=== PATIENT | female | born 1990 | race Hispanic/Latino ===

== ENCOUNTER 2017-05-31 08:07 | Emergency (ER) | payer OTHER ==
[~2017-05-31] VITALS: Ht 154.9 cm; Wt 90.7 kg
[~2017-05-31 08:07] MED LIST: Z.0.LORAZEPAM1 MG PO; Z.0.PHENERGAN25 M1 PO; Z.0.PROTONIX40 MG PO
--- OUTSIDE RECORDS SUMMARY | 2017-05-31 08:10 | XMS REPORT | Clinical Summary ---
Author Author [facility] Organization [facility] Address Unknown Phone Unavailable Care Team Providers Care General Service Officer Name Role Phone PCP Unavailable Allergies No Known Allergies Current Medications Prescription Sig. Disp. Refills Start End Date Status Date dicyclomine (BENTYL) 20 Take 20 mg by mouth 3 09/24/19 Active mg tablet (three) times daily as 16 needed (For abdominal pain/spasm.) . clonazePAM (KLONOPIN) 1 2 mg 3 (three) times 11/13/19 Active MG tablet daily as needed for 16 Anxiety (Panic Attack.) . escitalopram oxalate Take 20 mg by mouth daily 10/23/19 Active (LEXAPRO) 10 MG tablet . 16 ibuprofen (ADVIL,MOTRIN) Take 400 mg by mouth Active 400 MG tablet every 6 (six) hours as needed for Pain. ondansetron (ZOFRAN-ODT) Take 4 mg by mouth every Active 4 MG disintegrating 6 (six) hours as needed tablet for Nausea. promethazine (PHENERGAN) Take 25 mg by mouth every Active 25 MG tablet 6 (six) hours as needed for Nausea. promethazine (PHENERGAN) Place 25 mg rectally Active 25 MG suppository every 6 (six) hours as needed for Nausea. omeprazole (PRILOSEC) 40 Take 40 mg by mouth 2 Active MG capsule (two) times daily. lamoTRIgine (LAMICTAL) 25 Take 25 mg by mouth every Active MG tablet evening. ondansetron (ZOFRAN-ODT) Take 1 tablet (4 mg 12 tablet 0 02/11/20 Active 4 MG disintegrating total) by mouth every 8 16 tablet (eight) hours as needed for Nausea for up to 12 doses. 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 Family History Medical History Relation Name Comments Cancer Mother Breast Relation Name Status Comments Mother Social History Tobacco Use Types Packs/Day Years Used Date Never Smoker Smokeless Tobacco: Never Used Alcohol Use Drinks/Week oz/Week Comments No Sex Assigned at Date Recorded Not on file Last Filed Vital Signs Not on file Plan of Treatment Not on file Implants Implanted Type Area Executive Secretary Social Welfare Device Expiration Model / Identifier Date Serial / Lot Dbx Kay,1cc Pretreat - Bone Right: MUSCULOSKELETAL 06/08/2016 [id number] / [id number] Wrist TRANSPLANT [id number] Implanted: Qty: 1 on 03/14/2015 by [id number] / Victoria Harry MD Metaphyseal Plate Fracture/F Right: SYNTHES TRUMA 223.412 / Implanted: Qty: 1 on 10/11/2014 by ixation Wrist / Jorge White MD [id number] Screw,Cortex Selftap 2.7x16mm - Fracture/F Right: SYNTHES TRUMA 202.816 / [id number] ixation Wrist / Implanted: Qty: 1 on 10/11/2014 by Jorge White MD Screw,Cortex Selftap 2.7x20mm - Fracture/F Right: SYNTHES TRUMA 202.820 / [id number] ixation Wrist / Implanted: Qty: 3 on 10/11/2014 by Jorge White MD Screw,Cortex Selftap 2.7x22mm - Fracture/F Right: SYNTHES TRUMA 202.822 / [id number] ixation Wrist / Implanted: Qty: 1 on 10/11/2014 by Jorge White MD Screw,Cortex Selftap 3.5x16mm - Fracture/F Right: SYNTHES TRUMA 204.816 / [id number] ixation Wrist / Implanted: Qty: 3 on 10/11/2014 by Jorge White MD Screw,Cortex Selftap 3.5x14mm - Fracture/F Right: SYNTHES TRUMA 204.814 / [id number] ixation Wrist / Implanted: Qty: 2 on 10/11/2014 by Jorge White MD Wire,Rc 1.25mm X 150mm - Fracture/F Right: SYNTHES TRUMA 292.12 / [id number] ixation Wrist / Implanted: Qty: 1 on 10/11/2014 by Jorge White MD K-Wire,.062 4 - [id number] Fracture/F Right: DEPUY SPINE Implanted: Qty: 2 on 12/13/2014 by ixation Wrist 0 / Victoria Harry MD / Tiss Live Dbx Putty 5cc [id number] - IMPLANTS Right: MUSCULOSKELETAL 05/2016 [id number] / [id number] Wrist TRANSPLANT FND [id number] Implanted: Qty: 1 on 04/16/2015 by [id number] / Deshawn Sánchez MD Tendon Achilles Calcan >=19.5 Tissue Right: MUSCULOSKELETAL 2018 [id number] / [id number] - [id number] Graft/Subs Wrist TRANSPLANT FND [id number] Implanted: Qty: 1 on 06/11/2015 by kayy [id number] / Victoria Harry MD Explanted: Lcp Wrist Fusion Plate Straight Right: Affle 02.110.152 Implanted: Qty: 1 on 04/16/2015 by Randall / Victoria Harry MD / 2.7mm Locking Screws, Self-Tapping, Right: Affle 202.218 / With T8 Stardrive Recess Wrist / Implanted: Qty: 1 on 04/16/2015 by Victoria Harry MD 3.5mm Locking Screws, Self-Tapping, Right: Synthes 212.104 / With T15 Stardrive Recess Wrist / Implanted: Qty: 1 on 04/16/2015 by Victoria Harry MD 3.5mm Locking Screws, Self-Tapping, Right: Synthes 212.105 / With T15 Stardrive Recess Wrist / Implanted: Qty: 1 on 04/16/2015 by Victoria Harry MD 3.5mm Locking Screws, Self-Tapping, Right: Synthes 212.106 / With T15 Stardrive Recess Wrist / Implanted: Qty: 1 on 04/16/2015 by Victoria Harry MD 2.7mm Locking Screws, Self-Tapping, Right: Synthes 202.214 / With T8 Stardrive Recess Wrist / Implanted: Qty: 1 on 04/16/2015 by Victoria Harry MD 2.7mm Locking Screws, Self-Tapping, Right: Affle 202.210 / With T8 Stardrive Recess Wrist / Implanted: Qty: 1 on 04/16/2015 by Victoria Harry MD 2.7mm Locking Screws, Self-Tapping, Right: Affle 202.212 / With T8 Stardrive Recess Wrist / Implanted: Qty: 1 on 04/16/2015 by Victoria Harry MD Micro Quickanchor Right: MITEK SURGICAL 06/28/2016 [id number] / Implanted: Qty: 2 on 06/11/2015 by [employer]oola / Victoria Harry MD [id number] Micro Quickanchor Right: MITEK SURGICAL 06/28/[id number] / Implanted: Qty: 2 on 06/11/2015 by Taboola / Victoria Harry MD [id number] Explanted Type Area Executive Secretary Social Welfare Device Expiration Model / Identifier Date Serial / Lot 2.7mm Locking Screws, Self-Tapping, Right: Affle 202.210 / With T8 Stardrive Recess Wrist / Explanted: Qty: 1 by Victoria Harry MD Results Not on fileafter 05/30/2016
--- OUTSIDE RECORDS SUMMARY | 2017-05-31 08:10 | XMS REPORT | Clinical Summary ---
Author Author [facility] Organization [facility] Address Unknown Phone Unavailable Care Team Providers Care Ob/Gyn Nurse Name Role Phone Oz Asencio DO PCP Allergies No Known Allergies Current Medications Prescription Sig. Disp. Refills Start End Date Status Date ALPRAZolam (XANAX) 1 MG Take 1 mg by mouth 2 Active tablet (two) times a day. omeprazole OTC (PriLOSEC Take 20 mg by mouth Active OTC) 20 MG EC tablet daily. ondansetron ODT Take 4 mg by mouth every Active (ZOFRAN-ODT) 4 MG 6 (six) hours as needed disintegrating tablet for nausea or vomiting. escitalopram (LEXAPRO) 20 Take 20 mg by mouth Active MG tablet daily. lamoTRIgine (LaMICtal) Take 100 mg by mouth Active 100 MG tablet daily. diazePAM (VALIUM) 5 MG Take 1 tablet (5 mg 20 tablet 1 06/22/1905/18 tablet total) by mouth every 12 17 17 (twelve) hours as needed for anxiety for up to 10 days. Active Problems Not on file Encounters Date Type Specialty Care Team Description 06/21/2016 Emergency Emergency Medicine [facility] Ray Anxiety (Primary Dx) after 05/30/2016 Social History Tobacco Use Types Packs/Day Years Used Date Never Smoker Alcohol Use Drinks/Week oz/Week Comments No Sex Assigned at Date Recorded Not on file Last Filed Vital Signs Vital Sign Reading Time Taken Blood Pressure 132/86 06/21/2016 7:51 AM CDT Pulse 84 06/21/2016 7:51 AM CDT Temperature 37.3 C (99.1 F) 06/21/2016 6:44 AM CDT Respiratory Rate 22 06/21/2016 7:51 AM CDT Oxygen Saturation 98% 06/21/2016 7:51 AM CDT Inhaled Oxygen - - Concentration Weight - - Height 154.9 cm (5' 1") 06/21/2016 6:44 AM CDT Body Mass Index - - Plan of Treatment Not on file Results * ECG 12 lead (06/21/2016 6:46 AM) Component Value Ref Range Ventricular rate 114 Atrial rate 114 MS interval 138 QRSD interval 96 QT interval 320 QTC interval 441 P axis 1 50 QRS axis 1 43 T wave axis 16 EKG impression Sinus tachycardia-Nonspecific T wave abnormality-Abnormal ECG-In automated comparison with ECG of 21-JUN-2016 06:46,-No significant change was found- Specimen Performing Laboratory [facility] [place] [address] [place] [address] after 05/30/2016 Insurance Payer Benefit Subscriber ID Type Phone Address Plan / Group [employer] [facility] xxxxxxxxx O [facility]
[2017-05-31] MEDS ORDERED: KETOROLAC TROMETHAMINE 30 MG/ML VIAL IV STA (08:19)
[2017-05-31] MEDS ORDERED: METOCLOPRAMIDE HCL 10 MG/2ML VIAL IV ONE (08:30)
[2017-05-31] MEDS ORDERED: DICYCLOMINE HCL 20 MG/2 ML VIAL IM ONE (08:30)
[2017-05-31 09:29] LABS: BASOPHILS % 0.3 % (0.0-1.0); EOSINOPHILS # (AUTO) 0.2 (0.0-0.4); EOSINOPHILS % 1.6 % (0.0-6.0); HEMATOCRIT 36.9 % (34.2-44.1); HEMOGLOBIN 12.1 g/dL (12.0-16.0); LYMPHOCYTES # (AUTO) 1.7 (1.0-3.2); LYMPHOCYTES % 18.3 % (18.0-39.1); MEAN CORPUSCULAR HEMOGLOBIN 29.3 pg (28-32); MEAN CORPUSCULAR HGB CONC 32.8 g/dL (31-35); MEAN CORPUSCULAR VOLUME 89.3 fL (81-99); MONOCYTES # (AUTO) 0.4 (0.2-0.8); MONOCYTES % 4.5 % (4.4-11.3); NEUTROPHILS # (AUTO) 6.8 (2.1-6.9); NEUTROPHILS % 75.1 % (38.7-80.0); PLATELET COUNT 242 x10e3/uL (140-360); RED BLOOD COUNT 4.13 x10e6/uL (3.6-5.1); RED CELL DISTRIBUTION WIDTH 17.5 % (11.7-14.4)
[2017-05-31 09:47] LABS: ALANINE AMINOTRANSFERASE 16 IU/L (0-55); ALBUMIN 4.1 g/dL (3.5-5.0); ALBUMIN/GLOBULIN RATIO 1.1 (0.8-2.0); ALKALINE PHOSPHATASE 101 IU/L (40-150); BLOOD UREA NITROGEN 11 mg/dL (7-26); BUN/CREATININE RATIO 15 (6-25); CALCIUM 9.8 mg/dL (8.4-10.2); CARBON DIOXIDE 22 mmol/L (22-29); CHLORIDE 108 mmol/L (98-107); CREATININE, SERUM 0.72 mg/dL (0.57-1.11); EST GLOMERULAR FILTRATION RATE > 60 ML/MIN (60-); GLUCOSE 102 mg/dL (74-118); SODIUM 142 mmol/L (136-145)
[2017-05-31] MEDS ORDERED: DIATRIZOATE MEGL/DIATRIZOA SOD 30 ML BTL PO ONE (09:56)
[2017-05-31] MEDS ORDERED: MORPHINE SULFATE 5 MG/ML VIAL IM ONE (10:00)
[2017-05-31] MEDS ORDERED: MORPHINE SULFATE 2 MG/ML SYR IM SCH (10:00)
--- NOTE | 2017-05-31 11:56 | Diagnostic Imaging Report ---
PROCEDURE: CT ABDOMEN AND PELVIS WITHOUT CONTRAST TECHNIQUE: The abdomen and pelvis were scanned utilizing a multidetector helical scanner from the diaphragm to the lesser trochanter without administration of contrast medium. Patient declined oral contrast. No IV contrast was administered per physician request. Coronal and sagittal multiplanar reformations were obtained. DLP: 675.02 COMPARISON: [facility], CT, CT ABDOMEN/PELVIS W, 10/01/2016, 2:50. INDICATIONS: Diffuse abdominal pain accompanied by nausea and vomiting. FINDINGS: ABSENCE OF INTRAVENOUS CONTRAST DECREASES SENSITIVITY FOR DETECTION OF FOCAL LESIONS AND VASCULAR PATHOLOGY. LOWER THORAX: Bilateral dependent atelectasis. Small hiatal hernia. HEPATOBILIARY: No focal hepatic lesions. No biliary ductal dilatation. Status post cholecystectomy. SPLEEN: No splenomegaly. PANCREAS: No focal masses or ductal dilatation. ADRENALS: No adrenal nodules. KIDNEYS/URETERS: No hydronephrosis, stones, or solid mass lesions. PELVIC ORGANS/BLADDER: Unremarkable. PERITONEUM / RETROPERITONEUM: No free air or fluid. LYMPH NODES: No lymphadenopathy. VESSELS: Unremarkable. GI TRACT: No distention or wall thickening. The appendix is unremarkable. Medication capsules within the cecum. BONES AND SOFT TISSUES: Unremarkable. IMPRESSION: 1. no acute abdominopelvic abnormality. 2. Small hiatal hernia. 3. Status post cholecystectomy. No significant biliary dilatation. 4. Status post hysterectomy. Alisha Man M.D. Dictated by: Alisha Man M.D. on 05/31/2017 at 11:57 Electronically approved by: Alisha Man M.D. on 05/31/2017 at 11:57
== END 2017-05-31 12:44 | disposition home or self-care (01) ==
LOC: ER 08:07
DX: R10.31 Right lower quadrant pain (principal); R11.2 Nausea with vomiting, unspecified; M54.5 Low back pain; G89.29 Other chronic pain; Z72.89 Other problems related to lifestyle
CPT/HCPCS: 36415; 74176; 80053; 85025; 86140; 99284; J0500; J1885; J2270; J2765

== ENCOUNTER 2017-06-09 15:16 | Emergency (ER) | payer OTHER ==
[~2017-06-09] VITALS: Ht 154.9 cm; Wt 88.0 kg
--- OUTSIDE RECORDS SUMMARY | 2017-06-09 15:19 | XMS REPORT | Continuity of Care Document ---
Author Author [facility] Organization [facility] Address [address] [place] [address] Phone Unavailable Care Team Providers Care Rn Diabetes Educator Name Role Phone NONSTAFF PCP Unavailable Insurance Providers Guarantor MarthaHolley núñez Address [address] [place] [address] Email NONE Payer [facility] Choice Policy Number [id number] Subscriber's Name Holley Thomas Relationship 18 Self / Same As Patient Group Number [id number] Group Name UNEMPLOYED Effective Date 16 Advance Directives Directive Response Recorded Date/Time Does the patient have an advance directive? No 04/15/11 9:10am If yes, is advance directive on file with [facility]? No 04/15/11 9:10am If not on file with [facility] will patient provide a copy? No 04/15/11 9:10am Do you have a Directive to Physician? No 05/31/17 8:49am Do you have a Medical Power of Manager Functional? No 05/31/17 8:49am Do you have an out of hospital Do Not Resuscitate Order? No 05/31/17 8:49am Do you have any special needs we should be aware of? No 05/31/17 8:49am Do you have a support person here with you today? No 05/31/17 8:49am Did patient receive Notice of Privacy Practices? Yes 05/31/17 8:49am Did patient receive patient rights and responsibilities? Yes 05/31/17 8:49am Problems No problem information available. Medications Current Home MedicationsUnable to obtain current home medications. Past Home Medications Medication Directions Ordered Status Lorazepam 1 Mg Tablet, 1 Mg Oral As Needed Discontinued Pantoprazole Sodium (Protonix) 40 Mg Tablet.dr, 40 Mg Oral Daily Discontinued Promethazine Hcl (Phenergan) 25 Mg Tablet, 25 Mg Oral As Needed Discontinued Social History No social history information available. Hospital Discharge Instructions No hospital discharge instruction information available. Plan of Care Discharge Date 05/31/17 12:44pm Disposition HOME, SELF-CARE Condition at Discharge Stable Instructions/Education Provided Abdominal Pain - Adult Chronic Pain Prescriptions See Medication Section Referrals Marita Barnett Functional Status No functional status information available. Allergies, Adverse Reactions, Alerts No known allergies. Immunizations No immunization information available. Vital Signs Acute Vital Signs Vital Response Date/Time Temperature (Fahrenheit) 98.2 degrees F (97.6 - 99.5) 10/01/2016 3:54am Pulse Pulse Rate (adult) 80 bpm (60 - 90) 10/01/2016 3:54am Respiratory Rate 18 bpm (12 - 24) 10/01/2016 3:54am Blood Pressure 140/86 mm Hg 10/01/2016 3:54am Height 5 ft 1 in 05/31/2017 8:19am Weight 200 lb 05/31/2017 8:19am Body Mass Index 37.8 kg/m^2 05/31/2017 8:19am Results Laboratory Results Test Name Result Units Flags Reference Collection Date/Time Result Date/ Time Comments Urine Color YELLOW YELLOW 10/01/2016 3:11am 10/01/2016 3:17am Urine Clarity SL CLOUDY CLEAR 10/01/2016 3:11am 10/01/2016 3:17am Urine Specific [place] 1.005 L 1.010-1.025 10/01/2016 3:11am 2016 3:17am Urine pH 7 5 - 7 10/01/2016 3:11am 10/01/2016 3:17am Urine Leukocyte Esterase NEGATIVE NEGATIVE 10/01/2016 3:11am 2016 3:17am Urine Nitrite NEGATIVE NEGATIVE 10/01/2016 3:11am 10/01/2016 3:17am Urine Protein TRACE H NEGATIVE 10/01/2016 3:11a10/01/2016 3:17am Urine Glucose (UA) NEGATIVE NEGATIVE 10/01/2016 3:11a10/01/2016 3: 17am Urine Ketones NEGATIVE NEGATIVE 10/01/2016 3:11a10/01/2016 3:17am Urine Opiates Screen NEGATIVE NEGATIVE 10/01/2016 3:11a10/01/2016 3 :22am Urine Barbiturates Screen NEGATIVE NEGATIVE 10/01/2016 3:11a2016 3:22am Urine Phencyclidine Screen NEGATIVE NEGATIVE 10/01/2016 3:11a2016 3:22am Urine Amphetamines Screen NEGATIVE NEGATIVE 10/01/2016 3:11a2016 3:22am Urine Benzodiazepines Screen POSITIVE H NEGATIVE 10/01/2016 3:11a04/2016 3:22am This test provides only a screen. Positive results should be repeated by a confirmatory test. Urine Cocaine Screen NEGATIVE NEGATIVE 10/01/2016 3:11a10/01/2016 3 :22am Urine Cannabinoids Screen POSITIVE H NEGATIVE 10/01/2016 3:2016 3:22am This test provides only a screen. Positive results should be repeated by a confirmatory test. Urine Urobilinogen 0.2 mg/dL 0.2 - 1 10/01/2016 3:11a10/01/2016 3: 17am Urine Bilirubin NEGATIVE NEGATIVE 10/01/2016 3:10/01/2016 3: 17am Urine Blood TRACE H NEGATIVE 10/01/2016 3:11a10/01/2016 3:17am Urine WBC 0-5 /HPF 0-5 10/01/2016 3:11a10/01/2016 3:28am Urine RBC 0-5 /HPF 0-5 10/01/2016 3:11a10/01/2016 3:28am Urine Bacteria FEW /HPF NONE 10/01/2016 3:11a10/01/2016 3:28am Urine Epithelial Cells MANY /LPF NONE 10/01/2016 3:11a10/01/2016 3: 28am Human Chorionic Gonadotropin, Qual NEGATIVE NEGATIVE 10/01/2016 2: 15am 10/01/2016 2:29am White Blood Count 9.12 x10e3/uL 4.8-10.8 05/31/2017 9:00am 05/31/2017 9 :31am Red Blood Count 4.13 x10e6/uL 3.6-5.1 05/31/2017 9:00am 05/31/2017 9: 31am Hemoglobin 12.1 g/dL 12.0-16.0 05/31/2017 9:00am 05/31/2017 9:31am Hematocrit 36.9 % 34.2-44.1 05/31/2017 9:00am 05/31/2017 9:31am Mean Corpuscular Volume 89.3 fL 81-99 05/31/2017 9:00am 05/31/2017 9: 31am Mean Corpuscular Hemoglobin 29.3 pg 28-32 05/31/2017 9:00am 05/31/2017 9:31am Mean Corpuscular Hemoglobin Concent 32.8 g/dL 31-35 05/31/2017 9:00am 05/31/2017 9:31am Red Cell Distribution Width 17.5 % H 11.7-14.4 05/31/2017 9:00am 2017 9:31am Platelet Count 242 x10e3/uL 140-360 05/31/2017 9:00am 05/31/2017 9: 31am Neutrophils (%) (Auto) 75.1 % 38.7-80.0 05/31/2017 9:00am 05/31/2017 9: 31am Lymphocytes (%) (Auto) 18.3 % 18.0-39.1 05/31/2017 9:00am 05/31/2017 9: 31am Monocytes (%) (Auto) 4.5 % 4.4-11.3 05/31/2017 9:00am 05/31/2017 9: 31am Eosinophils (%) (Auto) 1.6 % 0.0-6.0 05/31/2017 9:00am 05/31/2017 9: 31am Basophils (%) (Auto) 0.3 % 0.0-1.0 05/31/2017 9:00am 05/31/2017 9:31am IM GRANULOCYTES % 0.2 % 0.0-1.0 05/31/2017 9:00am 05/31/2017 9:31am Neutrophils # (Auto) 6.8 2.1-6.9 05/31/2017 9:00am 05/31/2017 9:31am Lymphocytes # (Auto) 1.7 1.0-3.2 05/31/2017 9:00am 05/31/2017 9:31am Monocytes # (Auto) 0.4 0.2-0.8 05/31/2017 9:00am 05/31/2017 9:31am Eosinophils # (Auto) 0.2 0.0-0.4 05/31/2017 9:00am 05/31/2017 9:31am Basophils # (Auto) 0.0 0.0-0.1 05/31/2017 9:00am 05/31/2017 9:31am Absolute Immature Granulocyte (auto 0.02 x10e3/uL 0-0.1 05/31/2017 9: 00am 05/31/2017 9:31am Sodium Level 142 mmol/L 136-145 05/31/2017 9:00am 05/31/2017 9:51am Potassium Level 4.0 mmol/L 3.5-5.1 05/31/2017 9:00am 05/31/2017 9:51am Chloride Level 108 mmol/L H 98-107 05/31/2017 9:00am 05/31/2017 9:51am Carbon Dioxide Level 22 mmol/L 22-29 05/31/2017 9:00am 05/31/2017 9: 51am Anion Gap 16.0 mmol/L 8-16 05/31/2017 9:00am 05/31/2017 9:51am Blood Urea Nitrogen 11 mg/dL 7-26 05/31/2017 9:00am 05/31/2017 9:51am Creatinine 0.72 mg/dL 0.57-1.11 05/31/2017 9:00am 05/31/2017 9:51am BUN/Creatinine Ratio 15 6-25 05/31/2017 9:00am 05/31/2017 9:51am Estimat Glomerular Filtration Rate > 60 ML/MIN 60- 05/31/2017 9:00am 9:51am Ranges were taken from the National Kidney Disease Education Program and the National Kidney Foundation literature. Reference ranges: 60 or greater: Normal 16-59 (for 3 consecutive months): Chronic kidney disease 15 or less: Kidney failure Glucose Level 102 mg/dL 74-118 05/31/2017 9:00am 05/31/2017 9:51am Calcium Level 9.8 mg/dL 8.4-10.2 05/31/2017 9:00am 05/31/2017 9:51am Total Bilirubin 0.5 mg/dL 0.2-1.2 05/31/2017 9:00am 05/31/2017 9:51am Aspartate Amino Transf (AST/SGOT) 16 IU/L 5-34 05/31/2017 9:00am 2017 9:51am Alanine Aminotransferase (ALT/SGPT) 16 IU/L 0-55 05/31/2017 9:00am 04/2017 9:51am Total Protein 7.7 g/dL 6.5-8.1 05/31/2017 9:00am 05/31/2017 9:51am Albumin 4.1 g/dL 3.5-5.0 05/31/2017 9:00am 05/31/2017 9:51am Globulin 3.6 g/dL H 2.3-3.5 05/31/2017 9:00am 05/31/2017 9:51am Albumin/Globulin Ratio 1.1 0.8-2.0 05/31/2017 9:00am 05/31/2017 9: 51am Alkaline Phosphatase 101 IU/L 40-150 05/31/2017 9:00am 05/31/2017 9: 51am Procedures Procedure Status Date Provider(s) Computed tomography of abdomen and pelvis with contrast Active 10/01/[address] of abdomen and pelvis without contrast Active 05/31/17 RG KWOK MD Encounters Encounter Location Arrival/Admit Date Discharge/Depart Date Attending Provider Departed Emergency Room [facility] 05/31/17 8:07am 12:44pm RG KWOK MD Departed Emergency Room [facility] 10/01/16 1:39am 4:27am STEW BRANDT MD
--- OUTSIDE RECORDS SUMMARY | 2017-06-09 15:19 | XMS REPORT ---
Author Author [facility] Address Unknown Phone Unavailable Care Team Providers Care Inspector Chief Name Role Phone RG KWOK Unavailable Unavailable Problems This patient has no known problems. Allergies, Adverse Reactions, Alerts This patient has no known allergies or adverse reactions. Medications This patient has no known medications. Results Test Description Test Time Test Comments Text Results Atomic Results Result Comments CT ABDOMEN/PELVIS WO [place] [address] Patient Name: HOLLEY GAYLE MR #: [id number] : 1990 Age/Sex: 26/F Req # : [id number] Adm Physician: Ordered by: RG KWOK MD Report #: [id number] Location: ER Room/Bed: Procedure: [id number] CT/CT ABDOMEN/PELVIS WO Exam Date: 05/31/17 Exam Time: 1103 REPORT STATUS: Signed PROCEDURE: CT ABDOMEN AND PELVIS WITHOUT CONTRAST TECHNIQUE: The abdomen and pelvis were scanned utilizing a multidetector helical scanner from the diaphragm to the lesser trochanter without administration of contrast medium. Patient declined oral contrast. No IV contrast was administered per physician request. Coronal and sagittal multiplanar reformations were obtained. DLP: 675.02 COMPARISON: [facility], CT, CT ABDOMEN/PELVIS W, 10/01/2016, 2: 50. INDICATIONS: Diffuse abdominal pain accompanied by nausea and vomiting. FINDINGS: ABSENCE OF INTRAVENOUS CONTRAST DECREASES SENSITIVITY FOR DETECTION OF FOCAL LESIONS AND VASCULAR PATHOLOGY. LOWER THORAX: Bilateral dependent atelectasis. Small hiatal hernia. HEPATOBILIARY: No focal hepatic lesions. No biliary ductal dilatation. Status post cholecystectomy. SPLEEN: No splenomegaly. PANCREAS: No focal masses or ductal dilatation. ADRENALS: No adrenal nodules. KIDNEYS/ URETERS: No hydronephrosis, stones, or solid mass lesions. PELVIC ORGANS/ BLADDER: Unremarkable. PERITONEUM / RETROPERITONEUM: No free air or fluid. LYMPH NODES: No lymphadenopathy. VESSELS: Unremarkable. GI TRACT: No distention or wall thickening. The appendix is unremarkable. Medication capsules within the cecum. BONES AND SOFT TISSUES: Unremarkable. IMPRESSION: 1. no acute abdominopelvic abnormality. 2. Small hiatal hernia. 3. Status post cholecystectomy. No significant biliary dilatation. 4. Status post hysterectomy. Alisha Peña M.D. Dictated by: Alisha Peña M.D. on 2017 at 11:57 Electronically approved by: Alisha Peña M.D. on 05/31/2017 at 11:57 Dictated By: REMY PEÑA MD, MD 1157 Transcribed By : SUYAPA on 05/31/17 1157 COPY TO: RG KWOK MD
--- OUTSIDE RECORDS SUMMARY | 2017-06-09 15:19 | XMS REPORT | Clinical Summary ---
Author Author [facility] Address Unknown Phone Unavailable Care Team Providers Care Communications Superintendent Name Role Phone Oz Asencio DO PCP [...] Emergency Medicine [facility] Ray Anxiety (Primary Dx) MD after 06/08/2016 Social History Tobacco Use Types Packs/Day Years [...] Range Ventricular rate 114 Atrial rate 114 LA interval 138 QRSD interval 96 QT interval 320 QTC interval 441 P axis 1 50 QRS axis 1 43 T wave axis 16 EKG impression Sinus tachycardia-Nonspecific T wave abnormality-Abnormal ECG-In automated comparison with ECG of 21-JUN-2016 06:46,-No significant change was found- Specimen Performing Laboratory [facility] [place] [address] [place] [address] after 06/08/2016 Insurance Payer Benefit Subscriber ID Type Phone Address Plan / Group [employer] COM [facility] xxxxxxxxx O [facility]
--- OUTSIDE RECORDS SUMMARY | 2017-06-09 15:19 | XMS REPORT | Clinical Summary ---
Author Author WILLY [facility] Organization [facility] Address Unknown Phone Unavailable Care Team Providers Care Script Writer Name Role Phone PCP Unavailable Allergies No [...] subsequent 2015 encounter Irritable bowel syndrome 04/16/2015 [facility] compl of int fix of bones of [...] Not on file Implants Implanted Type Area Garment Supervisor Device Expiration Model / Identifier Date Serial / Lot Dbx Kay,1cc Pretreat - Bone Right: MUSCULOSKELETAL 06/08/2016 [id number] / [id number] Wrist TRANSPLANT [id number] Implanted: Qty: 1 on 03/14/2015 by [id number] / Victoria Harry MD Metaphyseal Plate Fracture/F Right: SYNTHES TRUMA 223.412 / Implanted: Qty: 1 on 10/11/2014 by [employer]ation Wrist / Jorge White MD [id number] Screw,Cortex Selftap 2.7x16mm - Fracture/F Right: SYNTHES TRUMA 202.816 / [id number] ixation Wrist / Implanted: Qty: 1 on 10/11/2014 by Jorge White MD Screw,Cortex Selftap 2.7x20mm - Fracture/F Right: SYNTHES TRUMA 202.820 / [id number] ixation Wrist / Implanted: Qty: 3 on 10/11/2014 by Jorge White MD Screw,Cortex Selftap 2.7x22mm - Fracture/F Right: SYNTHES TRUMA 202.822 / [id number] ixation Wrist / Implanted: Qty: 1 on 10/11/2014 by Jorge White MD Screw,Cortex Selftap 3.5x16mm - Fracture/F Right: SYNTHES TRUMA 204.816 / [id number] ixation Wrist / Implanted: Qty: 3 on 10/11/2014 by Jorge White MD Screw,Cortex Selftap 3.5x14mm - Fracture/F Right: SYNTHES TRUMA 204.814 / [id number] [employer]ation Wrist / Implanted: Qty: 2 on 10/11/2014 by Jorge White MD Wire,Rc 1.25mm X 150mm - Fracture/F Right: SYNTHES TRUMA 292.12 / [id number] ixation Wrist / Implanted: Qty: 1 on 10/11/2014 by Jorge White MD K-Wire,.062 4 - [id number] Fracture/F Right: DEPUY SPINE Implanted: Qty: 2 on 12/13/2014 by [employer] Wrist 0 / Victoria Harry MD / Tiss Live Dbx Putty 5cc [id number] - IMPLANTS Right: MUSCULOSKELETAL 05/2016 [id number] / [id number] Wrist TRANSPLANT FND [id number] Implanted: Qty: 1 on 04/16/2015 by [id number] / Deshawn Sánchez MD Tendon Achilles Calcan >=19.5 Tissue Right: MUSCULOSKELETAL 2018 [id number] / [id number] - [id number] Graft/Subs Wrist TRANSPLANT FND [id number] Implanted: Qty: 1 on 06/11/2015 by kayy [email or web address] / Victoria Harry MD Explanted: Lcp Wrist Fusion Plate Straight Right: SP3H 02.110.152 Implanted: Qty: 1 on 04/16/2015 by Randall / Victoria Harry MD / 2.7mm Locking Screws, Self-Tapping, Right: SP3H 202.218 / With T8 Stardrive Recess Wrist [...] Harry MD 2.7mm Locking Screws, Self-Tapping, Right: SP3H 202.210 / With T8 Stardrive Recess Wrist / Implanted: Qty: 1 on 04/16/2015 by Victoria Harry MD 2.7mm Locking Screws, Self-Tapping, Right: SP3H 202.212 / With T8 Stardrive Recess Wrist / Implanted: Qty: 1 on 04/16/2015 by Victoria Harry MD Micro Quickanchor Right: [employer] 06/28/[id number] / Implanted: Qty: 2 on 06/11/2015 by [employer] / Victoria Harry MD [id number] Micro Quickanchor Right: [employer] 06/28/2016405154 / Implanted: Qty: 2 on 06/11/2015 by [employer] / Victoria Harry MD [id number] Explanted Type Area Garment Supervisor Device Expiration Model / Identifier Date Serial / Lot 2.7mm Locking Screws, Self-Tapping, Right: SP3H 202.210 / With T8 Stardrive Recess Wrist / Explanted: Qty: 1 by Victoria Harry MD Results Not on fileafter 06/08/2016
[2017-06-09] MEDS ORDERED: FAMOTIDINE 20 MG/2 ML VIAL IV STA (15:31)
[2017-06-09] MEDS ORDERED: KETOROLAC TROMETHAMINE 30 MG/ML VIAL IV STA (15:31)
[2017-06-09] MEDS ORDERED: SODIUM CHLORIDE 0.9% 1000ML 1,000 ML IV SCH (15:45)
[2017-06-09] MEDS ORDERED: METOCLOPRAMIDE HCL 10 MG/2ML VIAL IV ONE (15:45)
[2017-06-09] MEDS ORDERED: DICYCLOMINE HCL 20 MG/2 ML VIAL IM ONE (15:45)
--- NOTE | 2017-06-09 16:26 | Diagnostic Imaging Report ---
PROCEDURE:ABDOMEN ACUTE SERIES W/PA CXR COMPARISON:Chest and abdominal series 08/29/2015 INDICATIONS:rlq pain FINDINGS: CHEST: Lungs are well-inflated and clear. No pneumothorax or pleural effusions. Cardiomediastinal silhouette is within normal limits. BOWEL PATTERN: No abnormally distended air filled loops of large or small bowel. No air-fluid levels on upright view. SOFT TISSUES: Cholecystectomy clips project over the right upper quadrant. No free air under the diaphragm on upright view. Nonspecific rectangular 1.5 cm opacity projects over the right lower quadrant and may be external to the patient. A 0.9 cm round density projects over the pelvis and may represent calcified contents within stool. BONES: No acute bony abnormalities. CONCLUSION: 1. No acute thoracic abnormality. 2. No evidence of bowel obstruction. Dictated by: Perfecto Kingsley M.D. on 06/09/2017 at 16:27 Electronically approved by: Perfecto Kingsley M.D. on 06/09/2017 at 16:27
[2017-06-09 16:54] LABS: BILIRUBIN,URINE NEGATIVE (NEGATIVE); CLARITY,URINE SL CLOUDY (CLEAR); COLOR,URINE YELLOW (YELLOW); KETONES,URINE NEGATIVE (NEGATIVE); LEUKOCYTE ESTERASE ,URINE 1+ (NEGATIVE); NITRITE,URINE NEGATIVE (NEGATIVE); URINE UROBILINOGEN 0.2 mg/dL (0.2 - 1)
[2017-06-09 16:55] LABS: AMPHETAMINES SCREEN,URINE NEGATIVE (NEGATIVE); BENZODIAZEPINES SCREEN,URINE POSITIVE (NEGATIVE); PHENCYCLIDINE SCREEN,URINE NEGATIVE (NEGATIVE); PROTEIN,URINE DIPSTICK TRACE (NEGATIVE)
[2017-06-09 17:04] LABS: BACTERIA,URINE MODERATE /HPF; EPITHELIAL CELLS,URINE RARE /LPF
[2017-06-09] MEDS ORDERED: CEFTRIAXONE SOD 1 GM VIAL IV ONE (18:00)
[2017-06-09 18:01] LABS: BASOPHILS % 0.2 % (0.0-1.0); EOSINOPHILS # (AUTO) 0.2 (0.0-0.4); EOSINOPHILS % 1.9 % (0.0-6.0); HEMATOCRIT 37.6 % (34.2-44.1); HEMOGLOBIN 12.6 g/dL (12.0-16.0); LYMPHOCYTES % 24.3 % (18.0-39.1); MEAN CORPUSCULAR HEMOGLOBIN 29.5 pg (28-32); MEAN CORPUSCULAR HGB CONC 33.5 g/dL (31-35); MEAN CORPUSCULAR VOLUME 88.1 fL (81-99); MONOCYTES # (AUTO) 0.4 (0.2-0.8); MONOCYTES % 5.2 % (4.4-11.3); NEUTROPHILS # (AUTO) 5.5 (2.1-6.9); PLATELET COUNT 392 x10e3/uL (140-360); RED BLOOD COUNT 4.27 x10e6/uL (3.6-5.1); RED CELL DISTRIBUTION WIDTH 17.4 % (11.7-14.4)
[2017-06-09 18:19] LABS: ALANINE AMINOTRANSFERASE 29 IU/L (0-55); ALBUMIN 4.1 g/dL (3.5-5.0); ALKALINE PHOSPHATASE 117 IU/L (40-150); ANION GAP 13.4 mmol/L (8-16); BLOOD UREA NITROGEN 6 mg/dL (7-26); BUN/CREATININE RATIO 8 (6-25); CARBON DIOXIDE 25 mmol/L (22-29); CHLORIDE 103 mmol/L (98-107); CREATININE, SERUM 0.74 mg/dL (0.57-1.11); EST GLOMERULAR FILTRATION RATE > 60 ML/MIN (60-); GLUCOSE 89 mg/dL (74-118); LIPASE 8 U/L (8-78); POTASSIUM 3.4 mmol/L (3.5-5.1); SODIUM 138 mmol/L (136-145)
[2017-06-09 18:43] LABS: ERYTHROCYTE SEDIMENTATION RATE 19 mm/hr (0-20)
== END 2017-06-09 18:10 | disposition left against medical advice (07) ==
LOC: ER 15:16
DX: N30.90 Cystitis, unspecified without hematuria (principal); G89.29 Other chronic pain; R11.10 Vomiting, unspecified; Z76.5 Malingerer [conscious simulation]; Z72.89 Other problems related to lifestyle; R10.11 Right upper quadrant pain
CPT/HCPCS: 36415; 74022; 80053; 80307; 81001; 83690; 85025; 85651; 99284; J0500; J1885; J2765; J7030

== ENCOUNTER 2018-09-13 04:38 | Emergency (ER) | payer BC ==
[~2018-09-13] VITALS: Ht 154.9 cm; Wt 88.0 kg
--- OUTSIDE RECORDS SUMMARY | 2018-09-13 04:46 | XMS REPORT | Clinical Summary ---
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 CT Abdomen Pelvis W Contrast (04/12/2018 10:42 AM TECHNICAL SERVICE REPRESENTATIVE) Only the most recent of 4 results within the time period is included. Specimen Narrative Performed At EXAMINATION:CT ABDOMEN PELVIS W CONTRAST [facility] CLINICAL HISTORY:abdominal pain COMPARISON:03/17/2018 TECHNIQUE: Multiple axial CT images of the Abdomen and pelvis were obtainedWith IV contrast . Sagittal and coronal reconstructions were done. CT imaging was performed with iterative reconstruction technique and/or automated exposure control to reduce radiation dose. FINDINGS: HEPATOBILIARY:No focal hepatic lesions. No biliary ductal dilation. GALLBLADDER: Absent. SPLEEN:No splenomegaly. PANCREAS:No focal masses or ductal dilation. ADRENALS:No adrenal nodules. KIDNEYS:No hydronephrosis, stones or solid masses. PERITONEUM/RETROPERITONEUM:No free air or fluid. No lymphadenopathy. ABDOMINAL AORTA/IVC: No aneurysm or dissection. GI TRACT:Visualized portions of the bowel demonstrate no distention or wall thickening. There are no signs of appendicitis. No signs of diverticulitis. PELVIC ORGANS/BLADDER:Urinary bladder is fluid-filled. Uterus and ovaries are absent. BONES AND SOFT TISSUES:No acute abnormality. VISUALIZED LOWER CHEST: No acute abnormality. IMPRESSION: No acute abnormality. [facility]-[id number] Procedure Note Interface, Radiology Results Incoming - 04/12/2018 11:25 AM TECHNICAL SERVICE REPRESENTATIVE EXAMINATION: CT ABDOMEN PELVIS W CONTRAST CLINICAL HISTORY: abdominal pain COMPARISON: 03/17/2018 TECHNIQUE: Multiple axial CT images of the Abdomen and pelvis were obtained With IV contrast . Sagittal and coronal reconstructions were done. CT imaging was performed with iterative reconstruction technique and/or automated exposure control to reduce radiation dose. FINDINGS: HEPATOBILIARY: No focal hepatic lesions. No biliary ductal dilation. GALLBLADDER: Absent. SPLEEN: No splenomegaly. PANCREAS: No focal masses or ductal dilation. ADRENALS: No adrenal nodules. KIDNEYS: No hydronephrosis, stones or solid masses. PERITONEUM/RETROPERITONEUM: No free air or fluid. No lymphadenopathy. ABDOMINAL AORTA/IVC: No aneurysm or dissection. GI TRACT: Visualized portions of the bowel demonstrate no distention or wall thickening. There are no signs of appendicitis. No signs of diverticulitis. PELVIC ORGANS/BLADDER: Urinary bladder is fluid-filled. Uterus and ovaries are absent. BONES AND SOFT TISSUES: No acute abnormality. VISUALIZED LOWER CHEST: No acute abnormality. IMPRESSION: No acute abnormality. [facility]-[id number] Performing Organization Address City/State/Zipcode Phone Number [facility] [address] [place] [address] * Lactic acid level (03/16/2018 10:32 PM TECHNICAL SERVICE REPRESENTATIVE) Only the most recent of 6 results within the time period is included. [facility] Lactic acid 1.8 0.5 - 2.2 mmol/L [facility] Specimen Plasma specimen Performing Organization Address City/State/Zipcode Phone Number [facility] [address] [place] [id number] PATHOLOGY AND GENOMIC MEDICINE [address] * Estimated GFR (10/01/2017 4:00 AM CDT) Only the most recent of 6 results within the time period is included. [facility] GFR Non Af Amer >90 mL/min/1.73 m2 [facility] DEPARTMENT OF PATHOLOGY AND GENOMIC MEDICINE GFR Af Amer >90 mL/min/1.73 m2 [facility] DEPARTMENT Comment: OF PATHOLOGY Chronic kidney disease: <60 AND GENOMIC mL/min/1.73m2 MEDICINE Kidney failure: <15 mL/min/1.73m2 The estimated GFR is calculated from the IDMS-traceable Modification of Diet in Renal Disease Equation. The accuracy of the calculation is poor when the creatinine is normal. Calculated values >90 mL/min/1.73m2 are not reported. This equation has not been validated in children (<18 years), women, the elderly (>70 years), or ethnic groups other than Caucasians and Americans. Specimen Plasma specimen Performing Organization Address City/State/Zipcode Phone Number [address] [address] PATHOLOGY AND GENOMIC MEDICINE * Basic metabolic panel (10/01/2017 4:00 AM CDT) Only the most recent of 2 results within the time period is included. [facility] Sodium 140 135 - 148 mEq/L [facility] DEPARTMENT OF PATHOLOGY AND GENOMIC MEDICINE Potassium 3.8 3.5 - 5.0 mEq/L [facility] DEPARTMENT OF PATHOLOGY AND GENOMIC MEDICINE Chloride 102 98 - 112 mEq/L [facility] DEPARTMENT OF PATHOLOGY AND GENOMIC MEDICINE CO2 27 24 - 31 mEq/L [facility] DEPARTMENT OF PATHOLOGY AND GENOMIC MEDICINE Anion gap 11@ANIO 7 - 15 mEq/L [facility] DEPARTMENT OF PATHOLOGY AND GENOMIC MEDICINE BUN 7 6 - 20 mg/dL [facility] DEPARTMENT OF PATHOLOGY AND GENOMIC MEDICINE Creatinine 0.6 0.5 - 0.9 mg/dL [facility] DEPARTMENT OF PATHOLOGY AND GENOMIC MEDICINE Glucose 74 65 - 99 mg/dL [facility] DEPARTMENT OF PATHOLOGY AND GENOMIC MEDICINE Calcium 8.8 8.3 - 10.2 mg/dL [facility] DEPARTMENT OF PATHOLOGY AND GENOMIC MEDICINE Specimen Plasma specimen Performing Organization Address [facility]ode Phone Number [facility] [place] [address] PATHOLOGY AND GENOMIC MEDICINE * C-reactive protein (09/30/2017 5:51 AM CDT) CRP <0.30 0.00 - 0.50 mg/dL [facility] DEPARTMENT OF PATHOLOGY AND GENOMIC MEDICINE Specimen Plasma specimen Performing Organization Address City/[facility] [place] [address] PATHOLOGY AND GENOMIC MEDICINE * Phosphorus level (09/30/2017 5:51 AM CDT) Only the most recent of 2 results within the time period is included. Phosphorus 3.2 2.4 - 4.5 mg/dL [facility] DEPARTMENT OF PATHOLOGY AND GENOMIC MEDICINE Specimen Plasma specimen Performing Organization Address [facility] [place] [address] PATH[facility] * Magnesium level (09/30/2017 5:51 AM CDT) Only the most recent of 2 results within the time period is included. Magnesium 1.8 1.6 - 2.6 mg/dL [facility] DEPARTMENT OF PATHOLOGY AND GENOMIC MEDICINE Specimen Plasma specimen Performing Organization Address [facility] [place] [address] PATHOLOGY AND [facility] MEDICINE * Urine drugs of abuse screen (09/29/2017 7:05 PM CDT) Only the most recent of 2 results within the time period is included. Amphetamine Negative [facility] DEPARTMENT screen, urine OF PATHOLOGY AND GENOMIC MEDICINE Barbiturate Negative [facility] DEPARTMENT screen, urine OF PATHOLOGY AND GENOMIC MEDICINE Benzodiazepine Negative [facility] DEPARTMENT screen, urine OF PATHOLOGY AND GENOMIC MEDICINE Cannabinoid Positive (A) [facility] DEPARTMENT screen, urine OF PATHOLOGY AND GENOMIC MEDICINE Cocaine screen, Negative [facility] DEPARTMENT urine OF PATHOLOGY AND GENOMIC MEDICINE Methadone Negative [facility] DEPARTMENT metabolite OF PATHOLOGY (EDDP), urine AND GENOMIC MEDICINE Opiates screen, Positive (A) [facility] DEPARTMENT urine OF PATHOLOGY AND GENOMIC MEDICINE Oxycodone Negative [facility] DEPARTMENT screen, urine OF PATHOLOGY AND GENOMIC MEDICINE Phencyclidine Negative [facility] DEPARTMENT screen, urine OF PATHOLOGY AND GENOMIC MEDICINE Tricyclic Negative [facility] DEPARTMENT screen, urine Comment: OF PATHOLOGY Drug screen minimum AND GENOMIC concentration of detectability MEDICINE Amphetamines 1000 ng/mL Barbiturates 200 ng/mL Benzodiazepines 300 ng/mL Cocaine 300 ng/mL Methadone 300 ng/mL Opiates 300 ng/mL Oxycodone 300 ng/mL Phencyclidine 25 ng/mL Cannabinoids 50 ng/mL Tricyclics 1000 ng/mL Negative test results indicates presumptive evidence of lack of clinically significant drug concentration in this urine specimen. Positive test results are presumptive evidence of clinically significant drug concentration in this urine specimen. Testing performed for medical purposes only. Specimen Urine Performing Organization Address City/[facility]ode Phone Number [facility] [place] [address] PATHOLOGY AND GENOMIC MEDICINE * AST (SGOT) (09/15/2017 1:40 PM CDT) AST 20 10 - 35 U/L [facility] DEPARTMENT OF PATHOLOGY AND GENOMIC MEDICINE Specimen Plasma specimen Performing Organization Address City/[facility]ercode Phone Number [facility] [place] [address] PATHOLOGY AND GENOMIC MEDICINE * Potassium level (09/15/2017 1:40 PM CDT) Potassium 3.9 3.5 - 5.0 mEq/L [facility] DEPARTMENT OF PATHOLOGY AND GENOMIC MEDICINE Specimen Plasma specimen Performing Organization Address City/[facility]ercofl Phone Number [facility] [place] [address] PATHOLOGY AND GENOMIC MEDICINE * Smear review (09/15/2017 11:35 AM CDT) Platelet slide Óscar adequate [facility] DEPARTMENT review OF PATHOLOGY AND GENOMIC MEDICINE Anisocytosis Moderate [facility] DEPARTMENT OF PATHOLOGY AND GENOMIC MEDICINE Specimen Narrative Performed At K/AST RECOLLECT CALLED TO CYNTHIA ADAMS/DANA 09/15/201713:28 //LS2 [facility] DEPARTMENT OF PATHOLOGY AND GENOMIC MEDICINE Performing Organization Address [facility] Centercode Phone Number [facility] [place] [address] PATHOLOGY AND GENOMIC MEDICINE after 09/12/2017 Insurance Type Payer Benefit Subscriber ID Effective Phone Address Plan / Dates Group PPO BCBS BCBS xxxxxxxxxxxx [id number] CHOICE resent PPO/[employer] PPO Advance Directives Patient has advance care planning documents, and code status on file. For more i nformation, please contact: Kody Gilman [address] [place] [address] Date Inactivated Comments Code Status Date Activated 10/01/2017 4:07 PM Full Code 09/29/2017 3:54 PM Code Status decision reached by: Patient
--- OUTSIDE RECORDS SUMMARY | 2018-09-13 04:50 | XMS REPORT | Clinical Summary ---
Author Author [facility] Organization [facility] Address Unknown Phone Unavailable Care Team Providers Care Aml Analyst Name Role Phone Pcp, No PCP Unavailable Allergies No Known Allergies Medications End Date Status Medication Sig Dispensed Refills Start Date Active dicyclomine (BENTYL) 20 Take 20 mg by 0 09/23/201 mg tablet mouth 3 6 (three) times daily as needed (For abdominal pain/spasm.) . Active ondansetron (ZOFRAN-ODT) Take 4 mg by 0 4 MG disintegrating mouth every 6 tablet (six) hours as needed for Nausea. Active promethazine (PHENERGAN) Take 25 mg by 0 25 MG tablet mouth every 6 (six) hours as needed for Nausea. Active promethazine (PHENERGAN) Place 25 mg 0 25 MG suppository rectally every 6 (six) hours as needed for Nausea. Active omeprazole (PRILOSEC) 40 Take 40 mg by 0 MG capsule mouth 2 (two) times daily. Active lamoTRIgine (LAMICTAL) 25 Take 25 mg by 0 MG tablet mouth every evening. Active ALPRAZolam (XANAX) 2 MG Take 1 tablet 0 tablet by mouth 3 (three) times daily. Active amitriptyline (ELAVIL) 25 Take 25 mg by 0 MG tablet mouth daily. Active estradiol (VIVELLE-DOT) Place 1 patch 2 0.1 mg/24 hr patch onto the skin 8 twice a week. Active HYDROcodone-acetaminophen Take 1 tablet 0 (NORCO 10-325) 10-325 mg by mouth 8 per tablet every 6 (six) hours as needed for Pain . Active hyoscyamine Take 1 tablet 0 (ANASPAZ,LEVSIN) 0.125 mg by mouth tablet every 4 (four) hours as needed for Cramping. 08/25/2019 Active gabapentin (NEURONTIN) Take 1 60 capsule 0 100 MG capsule capsule (100 9 mg total) by mouth 3 (three) times daily. 08/25/2019 Active gabapentin (NEURONTIN) Take 1 60 capsule 0 100 MG capsule capsule (100 9 mg total) by mouth 3 (three) times daily. 10/27/2017 Discontinued clonazePAM (KLONOPIN) 1 2 mg 3 0 MG tablet (three) times 6 daily as needed for Anxiety (Panic Attack.) . 10/27/2017 Discontinued escitalopram oxalate Take 20 mg by 0 (LEXAPRO) 10 MG tablet mouth daily . 6 10/27/2017 Discontinued ibuprofen (ADVIL,MOTRIN) Take 400 mg 0 400 MG tablet by mouth every 6 (six) hours as needed for Pain. 10/27/2017 Discontinued ondansetron (ZOFRAN-ODT) Take 1 tablet 12 tablet 0 4 MG disintegrating (4 mg total) 6 tablet by mouth every 8 (eight) hours as needed for Nausea for up to 12 doses. 10/27/2017 Discontinued acetaminophen-codeine Take 1-2 20 tablet 0 (TYLENOL #3) 300-30 mg tablets by 8 per tablet mouth every 6 (six) hours as needed for Pain for up to 10 days. Max Daily Amount: 8 tablets 10/27/2017 Discontinued escitalopram oxalate Take 1 tablet 1 (LEXAPRO) 20 MG tablet by mouth 8 daily . 10/27/2017 Discontinued metoclopramide HCl Take 10 mg by 0 (REGLAN) 10 MG tablet mouth 3 (three) times daily as needed. 10/27/2017 Discontinued omeprazole (PRILOSEC OTC) Take 20 mg by 0 20 MG tablet mouth daily. 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 Encounters Care Team Description Date Type Specialty Ignacio Duke Jr., MD Pain of right hand (Primary Dx) 08/25/2018 Emergency Emergency Medicine Ignacio Duke Jr., MD Arm pain, anterior, right (Primary Dx); Essential hypertension 08/25/2018 Emergency Emergency Medicine Ignacio Capellan MD Acute abdominal pain in left lower quadrant (Primary Dx); Intractable cyclical vomiting with nausea; Dehydration 10/27/2017 Emergency Emergency Medicine Ignacio Capellan MD Acute abdominal pain in left lower quadrant (Primary Dx); Intractable cyclical vomiting with nausea; Dehydration 10/20/2017 Emergency Emergency Medicine after 09/12/2017 Family History Medical History Relation Name Comments Cancer Mother Breast Relation Name Status Comments Mother Social History Date Tobacco Use Types Packs/Day Years Used Never Smoker Smokeless Tobacco: Never Used Alcohol Use Drinks/Week oz/Week Comments No Sex Assigned at Date Recorded Not on file Industry Job Start Date Occupation Not on file Not on file Not on file Travel End Travel History Travel Start No recent travel history available. Last Filed Vital Signs Time Taken Vital Sign Reading 08/25/2018 3:15 PM CDT Blood Pressure 160/99 08/25/2018 3:15 PM CDT Pulse 97 08/25/2018 1:44 PM CDT Temperature 36.8 C (98.2 F) 08/25/2018 3:15 PM CDT Respiratory Rate 16 08/25/2018 3:15 PM CDT Oxygen Saturation 100% - Inhaled Oxygen - Concentration 08/25/2018 1:44 PM CDT Weight 83.9 kg (185 lb) 08/25/2018 1:44 PM CDT Height 155 cm (5' 1.02") 08/25/2018 1:44 PM CDT Body Mass Index 34.93 Plan of Treatment Not on file Implants Device Identifier Shelf Expiration Date Model / Serial / Lot Implanted Type Area Manufactur er 06/08/2016 [id number] / [id number] / Dbx Putty,1cc Pretreat - Bone Right: Wrist MUSCULOSKE [id number] LETAL Implanted: Qty: 1 on 03/14/2015 by Victoria Nelson MD 223.412 / / [id number] Metaphyseal Plate Fracture/F Right: Wrist SYNTHES Implanted: Qty: 1 on 10/11/2014 by ixJorge Tuttle MD 202.816 / / Screw,Cortex Selftap 2.7x16mm - Fracture/F Right: Wrist SYNTHES [id number] ixation TRUMA Implanted: Qty: 1 on 10/11/2014 by Jorge White MD 202.820 / / Screw,Cortex Selftap 2.7x20mm - Fracture/F Right: Wrist SYNTHES [id number] ixation TRUMA Implanted: Qty: 3 on 10/11/2014 by Jorge White MD 202.822 / / Screw,Cortex Selftap 2.7x22mm - Fracture/F Right: Wrist SYNTHES [id number] ixation TRUMA Implanted: Qty: 1 on 10/11/2014 by Jorge White MD 204.816 / / Screw,Cortex Selftap 3.5x16mm - Fracture/F Right: Wrist SYNTHES [id number] ixation TRUMA Implanted: Qty: 3 on 10/11/2014 by Jorge White MD 204.814 / / Screw,Cortex Selftap 3.5x14mm - Fracture/F Right: Wrist SYNTHES [id number] ixation TRUMA Implanted: Qty: 2 on 10/11/2014 by Jorge White MD 292.12 / / Wire,Rc 1.25mm X 150mm - Fracture/F Right: Wrist SYNTHES [id number] ixation TRUMA Implanted: Qty: 1 on 10/11/2014 by Jorge White MD [id number] / / K-Wire,.062 4 - [id number] Fracture/F Right: Wrist DEPUY Implanted: Qty: 2 on 12/13/2014 by ixation SPINE Victoria Harry MD 05/02/2016 [id number] / [id number] / Tiss Live Dbx Putty 5cc [id number] - IMPLANTS Right: Wrist MUSCULOSKE [id number] LETAL Implanted: Qty: 1 on 04/16/2015 by TRANSPLANT Deshawn Sánchez MD FND 09/11/2018 [id number] / [id number] / Tendon Achilles Calcan >=19.5 Tissue Right: Wrist MUSCULOSKE 400053 - [id number] Graft/Subs LETAL Implanted: Qty: 1 on 06/11/2015 by titute TRANSPLANT Victoria Harry MD FND Explanted: [id number] / / Lcp Wrist Fusion Plate Straight Right: Wrist Synthes Implanted: Qty: 1 on 04/16/2015 by Victoria Harry MD 202.218 / / 2.7mm Locking Screws, Self-Tapping, Right: Wrist Synthes With T8 Stardrive Recess Implanted: Qty: 1 on 04/16/2015 by Victoria Harry MD 212.104 / / 3.5mm Locking Screws, Self-Tapping, Right: Wrist Synthes With T15 Stardrive Recess Implanted: Qty: 1 on 04/16/2015 by Victoria Harry MD 212.105 / / 3.5mm Locking Screws, Self-Tapping, Right: Wrist Synthes With T15 Stardrive Recess Implanted: Qty: 1 on 04/16/2015 by Victoria Harry MD 212.106 / / 3.5mm Locking Screws, Self-Tapping, Right: Wrist Synthes With T15 Stardrive Recess Implanted: Qty: 1 on 04/16/2015 by Victoria Harry MD 202.214 / / 2.7mm Locking Screws, Self-Tapping, Right: Wrist Synthes With T8 Stardrive Recess Implanted: Qty: 1 on 04/16/2015 by Victoria Harry MD 202.210 / / 2.7mm Locking Screws, Self-Tapping, Right: Wrist Synthes With T8 Stardrive Recess Implanted: Qty: 1 on 04/16/2015 by Victoria Harry MD 202.212 / / 2.7mm Locking Screws, Self-Tapping, Right: Wrist Synthes With T8 Stardrive Recess Implanted: Qty: 1 on 04/16/2015 by Victoria Harry MD 06/28/2016 [id number] / / [id number] Micro Quickanchor Right: Wrist MITEK Implanted: Qty: 2 on 06/11/2015 by SURGICAL Victoria Harry MD [employer] 06/28/2016 [id number] / / [id number] Micro Quickanchor Right: Wrist MITEK Implanted: Qty: 2 on 06/11/2015 by SURGICAL Victoria Harry MD [employer] Device Identifier Shelf Expiration Date Model / Serial / Lot Explanted Type Area Manufactur er 202.210 / / 2.7mm Locking Screws, Self-Tapping, Right: Wrist Synthes With T8 Stardrive Recess Explanted: Qty: 1 by Victoria Harry MD Procedures Comments Procedure Name Priority Date/Time Associated Diagnosis PERIPHERAL VASCULAR 08/26/2018 REPORT - SCAN 9:10 PM CDT ARTERIAL DOPPLER ARM, STAT 08/25/2018 RIGHT 11:00 AM CDT XR HAND RIGHT 3 VIEW STAT 08/25/2018 9:49 AM CDT CBC W/PLT COUNT & AUTO STAT 08/25/2018 DIFFERENTIAL 9:11 AM CDT C-REACTIVE PROTEIN STAT 08/25/2018 9:11 AM CDT BASIC METABOLIC PANEL (7) STAT 08/25/2018 9:11 AM CDT CBC W/PLT COUNT & AUTO STAT 08/25/2018 DIFFERENTIAL 9:11 AM CDT URINALYSIS W/ REFLEX STAT 10/27/2017 URINE CULTURE 12:32 PM CDT SCREEN, URINE STAT 10/27/2017 12:32 PM CDT CBC W/PLT COUNT & AUTO STAT 10/27/2017 DIFFERENTIAL 12:31 PM CDT LIPASE STAT 10/27/2017 12:31 PM CDT HEPATIC FUNCTION PANEL STAT 10/27/2017 12:31 PM CDT CBC W/PLT COUNT & AUTO STAT 10/27/2017 DIFFERENTIAL 12:31 PM CDT BASIC METABOLIC PANEL (7) STAT 10/27/2017 12:[address] ABDOMEN/PELVIS WITH IV STAT 10/20/2017 CONTRAST 1:08 PM CDT CBC W/PLT COUNT & AUTO STAT 10/20/2017 DIFFERENTIAL 10:27 AM CDT CBC W/PLT COUNT & AUTO STAT 10/20/2017 DIFFERENTIAL 10:27 AM CDT SCREEN, URINE STAT 10/20/2017 10:16 AM CDT LIPASE STAT 10/20/2017 10:16 AM CDT HEPATIC FUNCTION PANEL STAT 10/20/2017 10:16 AM CDT URINALYSIS W/ MICROSCOPIC STAT 10/20/2017 10:16 AM CDT BASIC METABOLIC PANEL (7) STAT 10/20/2017 10:16 AM CDT after 09/12/2017 Results * PERIPHERAL VASCULAR REPORT - SCAN (08/26/2018 9:10 PM CDT) Narrative Performed At * Arterial doppler arm, right (08/25/2018 11:00 AM CDT) Ejection Fraction [facility] Specimen Impressions Performed At Right Impression [facility] 1. The subclavian, axillary, brachial, radial and ulnar arteries are patent [facility] with normal triphasic Doppler waveforms. 2. The radial artery is small but patent. 3. Digital flow is normal by PPG waveforms. Conclusions Summary Right upper extremity Doppler analysis and digital PPG flow were obtained. Adequate Doppler signals were obtained. The right arterial system had normal triphasic flow and normal digital flow without obstruction. Signature Velocities are measured in cm/s ; Diameters are measured in cm Right Upper Extremities Duplex Measurements + +----+-----+----+---------+ !Location !PSV !Ratio!Diam!Waveform ! + +----+-----+----+---------+ !Mid Subclavian!8 2.7! !!Triphasic! + +----+-----+----+---------+ !Prox Axillary !73.8!0.89 !!Triphasic! + +----+-----+----+---------+ !Prox Brachial !92.5!1.25 !!Triphasic! + +----+-----+----+---------+ !Mid Brachial !104 !1.12 !!Triphasic! + +----+-----+----+---------+ !Dist Brachial !70.2!0.67 !!Triphasic! + +----+-----+----+---------+ !Prox Radial !31.4!0.45 !!Triphasic! + +----+-----+----+---------+ !Mid Radial !23.9!0.76 !!Triphasic! + +----+-----+----+---------+ !Dist Radial !17.4!0.73 !!Triphasic! + +----+-----+----+---------+ !Prox Ulnar !83.4!1.19 !!Triphasic! + +----+-----+----+---------+ !Mid Ulnar !91.1!1.09 !!Triphasic! + +----+-----+----+---------+ !Dist Ulnar !74.1!0.81 !!Triphasic! + +----+-----+----+---------+ Narrative Performed At LAB - Upper Extremities Arterial Duplex [facility] Demographics [facility] Patient TERRA Rodríguez Date of Study 08/25/2018 28 Visit [id number] male of 1990 Referring Srikanth LaresRoom Number ED8 Physician Talent Consultant MIRTA Muñoz Physician Procedure Type of Study: Extremities Arteries: Upper Extremities Arterial Duplex, ARTERIAL DOPPLER ARM, RIGHT. Indications for Study:Arm pain. Patient Status:STAT. Study Location:Vascular Lab. Technical Quality:Adequate visualization. Risk Factors History of Disease + + + + !Diagnosis!Date!Comments ! + + + + !History/Risk !08/25/2018!History of Bone, giant cell tumor'2014, S/P! !Factors: !!Biopsy/Excision bone right upper extremity ! ! !!09/27/2014 ! + + + + Procedure Note Interface, External Ris In - 08/26/2018 1:33 PM CDT PV LAB - Upper Extremities Arterial Duplex Demographics Patient Name TERRA THOMAS Date of Study 08/25/2018 Age 28 Visit Number [id number] Gender Female Accession Number [id number] Date of 1990 Referring [facility] Ignacio Arnaud Room Number ED8 Physician Talent Consultant Oscar Orozco Interpreting Daphne Oates Christiano Physician Procedure Type of Study: Extremities Arteries: Upper Extremities Arterial Duplex, ARTERIAL DOPPLER ARM, RIGHT. Indications for Study:Arm pain. Patient Status:STAT. Study Location:Vascular Lab. Technical Quality:Adequate visualization. Risk Factors History of Disease + + + + !Diagnosis !Date !Comments ! + + + + !History/Risk !08/25/2018!History of Bone, giant cell tumor'2014, S/P ! !Factors: ! !Biopsy/Excision bone right upper extremity ! ! ! !09/27/2014 ! + + + + Impressions Right Impression 1. The subclavian, axillary, brachial, radial and ulnar arteries are patent with normal triphasic Doppler waveforms. 2. The radial artery is small but patent. 3. Digital flow is normal by PPG waveforms. Conclusions Summary Right upper extremity Doppler analysis and digital PPG flow were obtained. Adequate Doppler signals were obtained. The right arterial system had normal triphasic flow and normal digital flow without obstruction. Signature Velocities are measured in cm/s ; Diameters are measured in cm Right Upper Extremities Duplex Measurements + +----+-----+----+---------+ !Location !PSV !Ratio!Diam!Waveform ! + +----+-----+----+---------+ !Mid Subclavian !82.7! ! !Triphasic! + +----+-----+----+---------+ !Prox Axillary !73.8!0.89 ! !Triphasic! + +----+-----+----+---------+ !Prox Brachial !92.5!1.25 ! !Triphasic! + +----+-----+----+---------+ !Mid Brachial !104 !1.12 ! !Triphasic! + +----+-----+----+---------+ !Dist Brachial !70.2!0.67 ! !Triphasic! + +----+-----+----+---------+ !Prox Radial !31.4!0.45 ! !Triphasic! + +----+-----+----+---------+ !Mid Radial !23.9!0.76 ! !Triphasic! + +----+-----+----+---------+ !Dist Radial !17.4!0.73 ! !Triphasic! + +----+-----+----+---------+ !Prox Ulnar !83.4!1.19 ! !Triphasic! + +----+-----+----+---------+ !Mid Ulnar !91.1!1.09 ! !Triphasic! + +----+-----+----+---------+ !Dist Ulnar !74.1!0.81 ! !Triphasic! + +----+-----+----+---------+ Performing Organization Address City/State[facility] Phone Number [facility] * XR hand 3 views right (08/25/2018 9:49 AM CDT) Specimen Narrative Performed At FINAL REPORT [facility] CLINICAL HISTORY: ARM PAIN EMESIS TECHNIQUE: 3 views of the right hand COMPARISON: Wrist 12/13/2014 IMPRESSION: As before, the patient is status post volar plate and screw fixation from the base of the third metacarpal through the carpal bones to the proximal radius. There is one surgical pin through the carpal bones which appear partially fused. There is deformity of the distal radius and tapering of the ulna which again overlap. The bones of the hand are otherwise intact without evidence for an acute fracture or dislocation. Signed: Norma Lombardo MD Report Verified Date/Time:08/25/2018 09:52:23 Reading Location: [facility] Reading Room Procedure Note Interface, External Ris In - 08/25/2018 9:54 AM CDT FINAL REPORT CLINICAL HISTORY: ARM PAIN EMESIS TECHNIQUE: 3 views of the right hand COMPARISON: Wrist 12/13/2014 IMPRESSION: As before, the patient is status post volar plate and screw fixation from the base of the third metacarpal through the carpal bones to the proximal radius. There is one surgical pin through the carpal bones which appear partially fused. There is deformity of the distal radius and tapering of the ulna which again overlap. The bones of the hand are otherwise intact without evidence for an acute fracture or dislocation. Signed: Norma Lombardo MD Report Verified Date/Time: 08/25/2018 09:52:23 Reading Location: [facility] Reading Room Performing Organization Address City/State/Zipcode Phone Number [facility] * C-Reactive Protein (08/25/2018 9:11 AM CDT) CRP 0.11 0.00 - 0.50 mg/dL [facility] Specimen Blood Performing Organization Address City/State/Zipcode Phone Number [facility] [address] [place] [address] [facility] * CBC with platelet count + automated diff (08/25/2018 9:11 AM CDT) Only the most recent of 3 results within the time period is included. WBC 13.8 (H) 3.5 - 10.5 K/L [facility] RBC 4.52 3.93 - 5.22 M/L [facility] Hemoglobin 11.8 11.2 - 15.7 GM/DL [facility] Hematocrit 38.4 34.1 - 44.9 % [facility] MCV 85.0 79.4 - 94.8 fL [facility] MCH 26.1 25.6 - 32.2 pg [facility] MCHC 30.7 (L) 32.2 - 35.5 GM/DL [facility] RDW 19.2 (H) 11.7 - 14.4 % [facility] Platelets 460 (H) 150 - 450 K/CU MM [facility] MPV 10.0 9.4 - 12.3 fL [facility] nRBC 0 0 - 0 /100 WBC [facility] % Neutros 81 % [facility] % Lymphs 14 % [facility] % Monos 3 % [facility] % Eos 1 % [facility] % Baso 0 % [facility] # Neutros 11.17 (H) 1.56 - 6.13 K/L [facility] # Lymphs 1.94 1.18 - 3.74 K/L [facility] # Monos 0.42 (H) 0.24 - 0.36 K/L [facility] # Eos 0.15 0.04 - 0.36 K/L [facility] # Baso 0.05 0.01 - 0.08 K/L [facility] Immature 0 0 - 1 % [facility] Granulocytes-Relative [place] Specimen Blood Performing Organization Address City/State/Zipcode Phone Number [facility] [address] [place] [address] [facility] * Basic Metabolic Panel (08/25/2018 9:11 AM CDT) Only the most recent of 3 results within the time period is included. Sodium 140 136 - 145 meq/L [facility] Potassium 3.6 3.5 - 5.1 meq/L [facility] Chloride 104 98 - 107 meq/L [facility] CO2 26 22 - 29 meq/L [facility] BUN 12 7 - 21 mg/dL [facility] Creatinine 0.79 0.57 - 1.25 mg/dL [facility] Glucose 110 (H) 70 - 105 mg/dL [facility] Calcium 10.3 (H) 8.4 - 10.2 mg/dL [facility] EGFR 85Comment: ESTIMATED GFR IS mL/min/1.73 sq m [facility] NOT ACCURATE CREATININE [place] CLEARANCE IN PREDICTING GLOMERULAR FILTRATION RATE. ESTIMATED GFR IS NOT APPLICABLE FOR DIALYSIS PATIENTS. Specimen Blood Performing Organization Address City/[facility]/Zipcode Phone Number [place] [phone] [place] [address] [facility] * Urinalysis w/Microscopic + Reflex to Culture (10/27/2017 12:32 PM CDT) Color, UA Yellow [facility] Clarity, UA Clear [facility] Specific [place], UA 1.020 1.001 - 1.035 [facility] pH, UA 7.0 5.0 - 8.0 [facility] Protein, UA 10 mg/dL (A) Negative [facility] Glucose, UA Negative Negative [facility] Ketones, UA Negative Negative [facility] Bilirubin, UA Negative Negative [facility] Blood, UA Negative Negative [facility] Nitrite, UA Negative Negative [facility] Leukocytes, UA Negative Negative [facility] Urobilinogen, UA 0.2 0.2 - 1.0 mg/dL [facility] RBC, UA 1 /HPF [facility] WBC, UA 1 /HPF [facility] Bacteria, UA Occasional [facility] Mucus Rare [facility] Squam Epithel, UA 7 /HPF [facility] Specimen Source [facility] Specimen Urine Performing Organization Address City/[facility]/Zipcode Phone Number [facility] [address] [place] [address] [facility] * Screen, urine (10/27/2017 12:32 PM CDT) Only the most recent of 2 results within the time period is included. Preg Test, Ur Negative [facility] Specimen Urine Performing Organization Address City/State/Zipcode Phone Number [facility] [address] [place], [place] [phone] [facility] * Lipase (10/27/2017 12:31 PM CDT) Only the most recent of 2 results within the time period is included. Lipase 7 (L) 8 - 78 U/L [facility] Specimen Blood Performing Organization Address City/[facility]/Zipcode Phone Number [facility] [address] [place] [address] [facility] * Hepatic function panel (10/27/2017 12:31 PM CDT) Only the most recent of 2 results within the time period is included. Protein, Total 8.1 6.0 - 8.3 gm/dL [facility] Albumin 4.6 3.5 - 5.0 g/dL [facility] Total Bilirubin 0.5 0.2 - 1.2 mg/dL [facility] Bilirubin, Direct 0.2 0.1 - 0.5 mg/dL [facility] Alkaline Phosphatase 102 40 - 150 U/L [facility] AST 18 5 - 34 U/L [facility] ALT 40 6 - 55 U/L [facility] Specimen Blood Performing Organization Address City/[facility]/Zipcode Phone Number [facility] [address] [place] [address] [facility] * CT abdomen/pelvis with IV contrast (10/20/2017 1:08 PM CDT) Specimen Narrative Performed At FINAL REPORT [facility] CT of the abdomen and pelvis, with contrast Clinical History:Abd pain, gastroenteritis or colitis suspected ABDOMINAL PAIN Technique: CT of the abdomen and pelvis is performed with intravenous contrast administration.This exam was performed according to our departmental dose optimization program which includes automated exposure control, adjustment of the mA and/or kV according to patient's size and/or use of iterative reconstructive technique. Comparison Film:November 20, 2015 Discussion: Visualized lower thorax is unremarkable. No liver lesion is identified. No biliary ductal dilatation. Status post cholecystectomy. The spleen, pancreas, adrenal glands are unremarkable. Kidneys demonstrate no mass, hydronephrosis, or obstructive stone. No bowel obstruction. Question mild colonic wall thickening, versus underdistention. A few scattered colonic diverticuli are present. Normal appendix. In the pelvis, bladder is unremarkable. Uterus is absent. No adnexal mass. There is no ascites, free air, or lymphadenopathy. Osseous structures are intact. Impression: Question mild colonic wall thickening, versus underdistention. Mild colonic diverticulosis. Status post cholecystectomy and hysterectomy. Signed: Sandy Quinn MD Report Verified Date/Time:10/20/2017 13:15:31 Reading Location: [address] Ortho Consult Reading Room Procedure Note Interface, External Ris In - 10/20/2017 1:17 PM CDT FINAL REPORT CT of the abdomen and pelvis, with contrast Clinical History: Abd pain, gastroenteritis or colitis suspected ABDOMINAL PAIN Technique: CT of the abdomen and pelvis is performed with intravenous contrast administration. This exam was performed according to our departmental dose optimization program which includes automated exposure control, adjustment of the mA and/or kV according to patient's size and/or use of iterative reconstructive technique. Comparison Film: November 20, 2015 Discussion: Visualized lower thorax is unremarkable. No liver lesion is identified. No biliary ductal dilatation. Status post cholecystectomy. The spleen, pancreas, adrenal glands are unremarkable. Kidneys demonstrate no mass, hydronephrosis, or obstructive stone. No bowel obstruction. Question mild colonic wall thickening, versus underdistention. A few scattered colonic diverticuli are present. Normal appendix. In the pelvis, bladder is unremarkable. Uterus is absent. No adnexal mass. There is no ascites, free air, or lymphadenopathy. Osseous structures are intact. Impression: Question mild colonic wall thickening, versus underdistention. Mild colonic diverticulosis. Status post cholecystectomy and hysterectomy. Signed: Sandy Quinn MD Report Verified Date/Time: 10/20/2017 13:15:31 Reading Location: [facility] [id number] Ortho Consult Reading Room Performing Organization Address City/State/Zipcode Phone Number GE RIS * Urinalysis w/Microscopic (10/20/2017 10:16 AM CDT) Color, UA Yellow [facility] Clarity, UA Clear [facility] Specific [place], UA 1.021 1.001 - 1.035 [facility] pH, UA 6.0 5.0 - 8.0 [facility] Protein, UA 10 mg/dL (A) Negative [facility] Glucose, UA Negative Negative [facility] Ketones, UA Negative Negative [facility] Bilirubin, UA Negative Negative [facility] Blood, UA Negative Negative [facility] Nitrite, UA Negative Negative [facility] Leukocytes, UA Negative Negative [facility] Urobilinogen, UA 0.2 0.2 - 1.0 mg/dL [facility] RBC, UA 1 /HPF [facility] WBC, UA <1 /HPF [facility] Mucus Few [facility] Squam Epithel, UA 3 /HPF [facility] Specimen Source [facility] Specimen Urine Performing Organization Address City/State/Zipcode Phone Number [facility] [address] [place] [address] [facility] after 09/12/2017 Insurance Payer Benefit Subscriber ID Type Phone Address Plan / Group [employer] BCBS PPO xxxxxxxxxxxx PPO [phone] [address] [place] [address] CHOICE Advance Directives For more information, please contact: [facility] [address] [place] [place] [address] Date Inactivated Comments Code Status Date Activated 04/19/2015 6:48 PM Full Code 04/16/2015 6:43 PM This code status was determined by: Patient 04/16/2015 6:43 PM Full Code 04/16/2015 8:33 AM This code status was determined by: Patient 03/14/2015 6:58 PM Full Code 03/14/2015 6:43 AM This code status was determined by: Patient 12/27/2014 7:20 PM Full Code 12/27/2014 9:54 AM This code status was determined by: Patient 11/20/2014 7:29 PM Full Code 11/20/2014 12:17 PM This code status was determined by: Patient
--- OUTSIDE RECORDS SUMMARY | 2018-09-13 04:53 | XMS REPORT ---
Author Author [facility] Organization [facility] Address Unknown Phone Unavailable Care Team Providers Care Field Marketing Lead Name Role Phone KIM NAVA Unavailable Unavailable JOJO STANLEY Unavailable Unavailable Hannah KWOK Unavailable Unavailable Payers Payer Name Policy Type Policy Number Effective Date Expiration Date Problems This patient has no known problems. Allergies, Adverse Reactions, Alerts Allergy Name Allergy Type Status Severity Reaction(s) Onset Date Inactive Date Treating Clinician Comments No Known Allergies DA Active U 2018-09-12 00:00:00 No Known Allergies DA Active U 2018-08-27 00:00:00 No Known Allergies DA Active U 2018-07-23 00:00:00 No Known Allergies DA Active U 2018-06-21 00:00:00 No Known Allergies DA Active U 2018-05-22 00:00:00 No Known Allergies DA Active U 2018-05-18 00:00:00 No Known Allergies DA Active U 2018-05-04 00:00:00 codeine DA Active U 2018-02-09 00:00:00 No Known Allergies DA Active U 2018-02-01 00:00:00 No Known Allergies DA Active U 2018-01-16 00:00:00 No Known Allergies DA Active U 2017-07-19 00:00:00 Medications This patient has no known medications. Encounters Start Date/Time End Date/Time Encounter Type Admission Type Attending [facility] Care Department Encounter ID 2018-08-31 06:12:00 2018-08-31 06:12:00 Outpatient E MHSE MED [id number] 2018-08-19 08:03:00 2018-08-19 08:03:00 Emergency E MHSE MHSE [id number] 2018-08-10 09:05:00 2018-08-10 09:05:00 Emergency E MHSE MHSE [id number] 2018-07-31 07:00:00 2018-07-31 07:00:00 Emergency E MHSE MHSE [id number] 2018-06-29 08:49:00 2018-06-29 08:49:00 Emergency E MHSE MHSE [id number] 2018-06-16 09:01:00 2018-06-16 09:01:00 Emergency E MHSE MHSE [id number] 2018-06-11 06:28:00 2018-06-11 06:28:00 Emergency E MHSE MHSE [id number] 2018-06-06 11:08:00 2018-06-06 11:08:00 Emergency E MHSE MHSE 7562 Results Test Description Test Time Test Comments Text Results Atomic Results Result Comments - XR FOREARM 2 VIEWS RT 2018-09-12 23:33:00 FAX: North Lira DO [phone] [place]: St: PRE Name: HOLLEY GAYLE [facility] : 1990 Age/S: 28/F [address] [place] [address] Unit #: [id number] Loc: [place] [address] Phys: North Lai DO Acct: [id number] Dis Date: Status: PRE ER PHONE #: [phone] Exam Date: 09/12/20182318 FAX #: [phone] Reason: rt arm pain EXAMS: CPT CODE: [id number] XR [place] [address] [place] [id number] Right forearm 2 view HISTORY: Arm pain. Comparison made to right wrist series of the same date, and previous forearm series dated 08/27/18. FINDINGS: Fusion hardware again seen spanning the right distal radius, carpal bones, and 3rd metacarpal. No hardware failure/loosening. No abnormality of the proximal right radius or ulna. IMPRESSION: 1. Postoperative/posttraumatic changes at the distal right forearm and wrist, stable. 2. No acute change from 08/27/18. SL:01 at 6387 Reported and signed by: Henrique Crawley M.D. CC: North Lai DO Technologist: RT Sean(R) Trnscrd Date/Time/By: 09/12/2018 (2583) : By: Iesha Orig Print D/T: S: 09/12/2018 (1274) PAGE 1 Signed Report - XR HAND 3 + V RT 2018-09-12 23:20:00 FAX: North Lira DO [phone] [place]: St: PRE Name: NALINIHOLLEY LEE [facility] : 1990 Age/S: 28/F [address] [place] [address] Unit #: [id number] Loc: [place] [address] Phys: North Lai DO Acct: [id number] Dis Date: Status: PRE ER PHONE #: [phone] Exam Date: 09/12/20182316 FAX #: [phone] Reason: RT ARM PAIN EXAMS: CPT CODE: [id number] XR HAND 3 + [place] [address] Right hand 3 view HISTORY: Right arm pain. Comparison made to 08/27/18. FINDINGS: There are old postoperative changes of carpal fusion with a fixating plate and screws and fixating pin having a stable appearance. There is likely an old healed fracture of the distal right radius, the radius is currently fused to carpal bones. No acute fracture or dislocation demonstrated. IMPRESSION: 1. Extensive postsurgical and posttraumatic changes involving right distal radius, ulnar, and carpal bones with radiocarpal and carpal fusion. 2. No acute fracture, no acute interval change from 08/27/18. SL:01 at 5183 Reported and signed by: Henrique Crawley M.D. CC: North Lai DO Technologist: RT Sean(R) Trnscrd Date/Time/By: 09/12/2018 (1573) : By: Iesha Orig Print D/T: S: 09/12/2018 (5504) PAGE 1 Signed Report - XR HAND 3 + V RT 2018-08-27 08:01:00 FAX: Thierno Gar NP [phone] [place]: St: REG Name: HOLLEY GAYLE [facility] : 1990 Age/S: 28/F [address] [facility] Unit #: [id number] Loc: [place] [address] Phys: Thierno Gar NP Acct: [id number] Dis Date: Status: REG ER PHONE #: [phone] Exam Date: 08/27/2018 0737 FAX #: [phone] Reason: ARM PAIN EXAMS: CPT CODE: [id number] XR HAND 3 + V RT [id number] EXAM: Right forearm, 2 views and right hand, 3 views; INFORMATION: Pain; FINDINGS: Status post ORIF for treatment of a fracture of the distal right radius. There has been central stenosis of the radiocarpal joint and a plate extends along the dorsal aspect of the distal radius as well as carpal bones and further into the base of the 3rd metacarpal bone. Plate is fixated with multiple screws. An additional pin is seen across carpal bones and there is also synostosis of major portion of the c arpal bones. There is thickening and increased sclerosis of the distal right radius. The distal end of the ulna is moderately from the radius probably secondary to ligamentous disruption. Imaged bones are otherwise intact; no evidence of acute fracture. Two small surgical clips are seen within subcutaneous tissues in the distal 3rd of the right forearm. IMPRESSION: 1. 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 2. Thickening of the distal radius and sclerosis is probably related to postoperative changes. Chronic osteomyelitis is less likely. 3. No evidence of acute osseous trauma. at 0801 Reported and signed by: Huang Knapp M.D. CC: Thierno Gar NP Technologist: Raulito PEREZ(R) Trnscrd Date/Time/By: 08/27/2018 (0801) : By: MojganGRW Orig Print D/T: S: 08/27/2018 (0804) PAGE 1 Signed Report - XR FOREARM 2 VIEWS RT 2018-08-27 08:01:00 FAX: Thierno Gar NP [phone] [place]: St: REG Name: HOLLEY GAYLE MAILE [facility] : 1990 Age/S: 28/F [address] [facility] Unit #: [id number] Loc: [place] [address] Phys: Thierno Gar NP Acct: [id number] Dis Date: Status: REG ER PHONE #: [phone] Exam Date: 08/27/2018 0737 FAX #: [phone] Reason: ARM PAIN EXAMS: CPT CODE: [id number] XR [place] [address] [place] [id number] EXAM: Right forearm, 2 views and right hand, 3 views; INFORMATION: Pain; FINDINGS: Status post ORIF for treatment of a fracture of the distal right radius. There has been central stenosis of the radiocarpal joint and a plate extends along the dorsal aspect of the distal radius as well as carpal bones and further into the base of the 3rd metacarpal bone. Plate is fixated with multiple screws. An additional pin is seen across carpal bones and there is also synostosis of major portion of the c arpal bones. There is thickening and increased sclerosis of the distal right radius. The distal end of the ulna is moderately from the radius probably secondary to ligamentous disruption. Imaged bones are otherwise intact; no evidence of acute fracture. Two small surgical clips are seen within subcutaneous tissues in the distal 3rd of the right forearm. IMPRESSION: 1. 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 2. Thickening of the distal radius and sclerosis is probably related to postoperative changes. Chronic osteomyelitis is less likely. 3. No evidence of acute osseous trauma. at 0801 Reported and signed by: Huang Knapp M.D. CC: Thierno Gar NP Technologist: Raulito Cifuentes RT(R) Trnscrd Date/Time/By: 08/27/2018 (08) : By: MojganGRW Orig Print D/T: S: 08/27/2018 (0804) PAGE 1 Signed Report - XR HUMERUS 2 + V RT 2018-08-27 07:55:00 FAX: Thierno Gar NP [phone] [place]: St: REG Name: HOLLEY GAYLE [facility] : 1990 Age/S: 28/F [address] [facility] Unit #: [id number] Loc: [place] [address] Phys: Thierno Gar NP Acct: [id number] Dis Date: Status: REG ER PHONE #: [phone] Exam Date: 08/27/2018 0715 FAX #: [phone] Reason: ARM PAIN EXAMS: CPT CODE: [id number] XR HUMERUS 2 + V RT [address] EXAM: Right humerus, 2 views; INFORMATION: Arm pain; FINDINGS: Normal shape and structure of the imaged bones; no evidence of fracture or dislocation; no soft tissue abnormalities. IMPRESSION: No evidence of acute osseous trauma or other pathological changes. No radiopaque foreign body. at 0755 Reported and signed by: Huang Knapp M.D. CC: Thierno Gar NP Technologist: Raulito PEREZ(Mik) Trnscrd Date/Time/By: 08/27/2018 (0755) : By: MojganGRW [facility] Print D/T: S: 08/27/2018 (0758) PAGE 1 Signed Report RAD, HAND, 3 VIEWS, RIGHT 2018-08-25 09:52:00 Reason for exam:->ARM PAINReason for exam:->EMESIS FINAL REPORT CLINICAL HISTORY: ARM PAINEMESIS TECHNIQUE: 3 views of the right hand [...] acute fracture or dislocation. Signed: Norma Lombardo MDReport Verified Date/Time: 08/25/2018 09:52:23 Reading Location: [facility] Radiology Reading Room C METABOLIC PANEL 2018-08-25 09:38:00 SODIUM (BEAKER) (test ymmd=975) 140 meq/L 136-145 POTASSIUM (BEAKER) (test cveq=305) 3.6 meq/L 3.5-5.1 CHLORIDE (BEAKER) (test fyot=195) 104 meq/L 98-107 CO2 (BEAKER) (test krbd=089) 26 meq/L 22-29 BLOOD UREA NITROGEN (BEAKER) (test htvi=800) 12 mg/dL 7-21 CREATININE (BEAKER) (test hvbl=350) 0.79 mg/dL 0.57-1.25 GLUCOSE RANDOM (BEAKER) (test srby=691) 110 mg/dL 70-105 CALCIUM (BEAKER) (test fzdb=612) 10.3 mg/dL 8.4-10.2 EGFR (BEAKER) (test qfiy=8223) 85 mL/min/1.73 sq m ESTIMATED GFR IS NOT ACCURATE CREATININE CLEARANCE IN PREDICTING GLOMERULAR FILTRATION RATE. ESTIMATED GFR IS NOT APPLICABLE FOR DIALYSIS PATIENTS. C-REACTIVE [id number] 09:38:00* Test Item Value Reference Range Comments C-REACTIVE PROTEIN (BEAKER) (test ygfs=285) 0.11 mg/dL 0.00-0.50 CBC W/PLT COUNT & AUTO [id number] 09:26:00* Test Item Value Reference Range Comments WHITE BLOOD CELL COUNT (BEAKER) (test kugk=481) 13.8 K/ L 3.5-10.5 RED BLOOD CELL COUNT (BEAKER) (test wdng=278) 4.52 M/ L 3.93-5.22 HEMOGLOBIN (BEAKER) (test dwak=425) 11.8 GM/DL 11.2-15.7 HEMATOCRIT (BEAKER) (test vhav=140) 38.4 % 34.1-44.9 MEAN CORPUSCULAR VOLUME (BEAKER) (test butn=810) 85.0 fL 79.4-94.8 MEAN CORPUSCULAR HEMOGLOBIN (BEAKER) (test ehff=503) 26.1 pg 25.6-32.2 MEAN CORPUSCULAR HEMOGLOBIN CONC (BEAKER) (test lygl=216) 30.7 GM/DL 32.2-35.5 RED CELL DISTRIBUTION WIDTH (BEAKER) (test mvpe=268) 19.2 % 11.7-14.4 PLATELET COUNT (BEAKER) (test camp=868) 460 K/CU MM 150-450 MEAN PLATELET VOLUME (BEAKER) (test rfkb=457) 10.0 fL 9.4-12.3 NUCLEATED RED BLOOD CELLS (BEAKER) (test ysek=922) 0 /100 WBC 0-0 NEUTROPHILS RELATIVE PERCENT (BEAKER) (test pbwm=154) 81 % LYMPHOCYTES RELATIVE PERCENT (BEAKER) (test lzxz=241) 14 % MONOCYTES RELATIVE PERCENT (BEAKER) (test rpqv=199) 3 % EOSINOPHILS RELATIVE PERCENT (BEAKER) (test htwn=744) 1 % BASOPHILS RELATIVE PERCENT (BEAKER) (test bywy=351) 0 % NEUTROPHILS ABSOLUTE COUNT (BEAKER) (test pqrm=116) 11.17 K/ L 1.56-6.13 LYMPHOCYTES ABSOLUTE COUNT (BEAKER) (test nsmd=983) 1.94 K/ L 1.18-3.74 MONOCYTES ABSOLUTE COUNT (BEAKER) (test wrwu=029) 0.42 K/ L 0.24-0.36 EOSINOPHILS ABSOLUTE COUNT (BEAKER) (test gztf=993) 0.15 K/ L 0.04-0.36 BASOPHILS ABSOLUTE COUNT (BEAKER) (test yltc=232) 0.05 K/ L 0.01-0.08 IMMATURE GRANULOCYTES-RELATIVE PERCENT (BEAKER) (test plus=4029) 0 % 0-1 BASIC METABOLIC [id number] 10:47:00* Test Item Value Reference Range Comments SODIUM (test code=NA) 141 mmol/L 136-145 POTASSIUM (test code=K) 3.4 mmol/L 3.5-5.1 CHLORIDE (test code=CL) 106.0 mmol/L 98-107 CARBON DIOXIDE (test code=CO2) 25.0 mmol/L 21-32 ANION GAP (test code=GAP) 13.4 10-20 GLUCOSE (test code=GLU) 122 mg/dL 74-106 BLOOD UREA NITROGEN (test code=BUN) 11 mg/dL 7-18 GLOMERULAR FILTRATION RATE (test code=GFR) > 60 mL/min >=60 Estimated GFR by using Modified MDRD formula.Chronic kidney disease is defined as either kidney damageor GFR <60 mL/min/1.73 m2 for >3 months. CREATININE (test code=CREAT) 0.70 mg/dL 0.55-1.02 Note change in reference range due to change in reagent. BUN/CREATININE RATIO (test code=BUN/CREA) 15.7 10-20 CALCIUM (test code=CA) 9.5 mg/dL 8.5-10.1 HEPATIC FUNCTION [id number] 10:47:00* Test Item Value Reference Range Comments TOTAL PROTEIN (test code=PROT) 8.5 gram/dL 6.4-8.2 ALBUMIN (test code=ALB) 4.3 g/dL 3.4-5.0 GLOBULIN (test code=GLOB) 4.2 gram/dL 2.7-4.2 ALBUMIN/GLOBULIN RATIO (test code=A/G) 1.0 0.75-1.50 BILIRUBIN TOTAL (test code=BILT) 0.40 mg/dL 0.0-1.0 BILIRUBIN DIRECT (test code=BILD) 0.15 mg/dL 0.0-0.20 SGOT/AST (test code=AST) 12 IUnit/L 15-37 SGPT/ALT (test code=ALT) 40 IUnit/L 12-78 ALKALINE PHOSPHATASE TOTAL (test code=ALKP) 103 IUnit/L 45-117 Note change in reference range due to change in reagent. [id number] 10:47:00* Test Item Value Reference Range Comments LIPASE (test code=LIP) 139 U/L 73.0-393.0 HCG SERUM [id number] 10:47:00* Test Item Value Reference Range Comments HCG SERUM QUAL (test code=HCGQL) NEGATIVE NEGATIVE This HCGQL test is NOT applicable for MALE patients.Check with nurse about probable order error.If Tumor Marker Test needed, nurse should order test "HCGTU"(Test #550.29806) BASIC METABOLIC [id number] 10:37:00* Test Item Value Reference Range Comments SODIUM (test code=NA) 141 mmol/L 136-145 POTASSIUM (test code=K) 3.4 mmol/L 3.5-5.1 CHLORIDE (test code=CL) 106.0 mmol/L 98-107 CARBON DIOXIDE (test code=CO2) mmol/L 21-32 ANION GAP (test code=GAP) 10-20 GLUCOSE (test code=GLU) mg/dL 74-106 BLOOD UREA NITROGEN (test code=BUN) mg/dL 7-18 GLOMERULAR FILTRATION RATE (test code=GFR) mL/min >=60 CREATININE (test code=CREAT) mg/dL 0.55-1.02 BUN/CREATININE RATIO (test code=BUN/CREA) 10-20 CALCIUM (test code=CA) mg/dL 8.5-10.1 HEPATIC FUNCTION [id number] 10:37:00* Test Item Value Reference Range Comments TOTAL PROTEIN (test code=PROT) gram/dL 6.4-8.2 ALBUMIN (test code=ALB) g/dL 3.4-5.0 GLOBULIN (test code=GLOB) gram/dL 2.7-4.2 ALBUMIN/GLOBULIN RATIO (test code=A/G) 0.75-1.50 BILIRUBIN TOTAL (test code=BILT) mg/dL 0.0-1.0 BILIRUBIN DIRECT (test code=BILD) mg/dL 0.0-0.20 SGOT/AST (test code=AST) IUnit/L 15-37 SGPT/ALT (test code=ALT) IUnit/L 12-78 ALKALINE PHOSPHATASE TOTAL (test code=ALKP) IUnit/L 45-117 [id number] 10:37:00* Test Item Value Reference Range Comments LIPASE (test code=LIP) U/L 73.0-393.0 HCG SERUM [id number] 10:37:00* Test Item Value Reference Range Comments HCG SERUM QUAL (test code=HCGQL) NEGATIVE NEGATIVE This HCGQL test is NOT applicable for MALE patients.Check with nurse about probable order error.If Tumor Marker Test needed, nurse should order test "HCGTU"(Test #550.85206) BASIC METABOLIC [id number] 10:36:00* Test Item Value Reference Range Comments SODIUM (test code=NA) mmol/L 136-145 POTASSIUM (test code=K) mmol/L 3.5-5.1 CHLORIDE (test code=CL) mmol/L 98-107 CARBON DIOXIDE (test code=CO2) mmol/L 21-32 ANION GAP (test code=GAP) 10-20 GLUCOSE (test code=GLU) mg/dL 74-106 BLOOD UREA NITROGEN (test code=BUN) mg/dL 7-18 GLOMERULAR FILTRATION RATE (test code=GFR) mL/min >=60 CREATININE (test code=CREAT) mg/dL 0.55-1.02 BUN/CREATININE RATIO (test code=BUN/CREA) 10-20 CALCIUM (test code=CA) mg/dL 8.5-10.1 HEPATIC FUNCTION [id number] 10:36:00* Test Item Value Reference Range Comments TOTAL PROTEIN (test code=PROT) gram/dL 6.4-8.2 ALBUMIN (test code=ALB) g/dL 3.4-5.0 GLOBULIN (test code=GLOB) gram/dL 2.7-4.2 ALBUMIN/GLOBULIN RATIO (test code=A/G) 0.75-1.50 BILIRUBIN TOTAL (test code=BILT) mg/dL 0.0-1.0 BILIRUBIN DIRECT (test code=BILD) mg/dL 0.0-0.20 SGOT/AST (test code=AST) IUnit/L 15-37 SGPT/ALT (test code=ALT) IUnit/L 12-78 ALKALINE PHOSPHATASE TOTAL (test code=ALKP) IUnit/L 45-117 [id number] 10:36:00* Test Item Value Reference Range Comments LIPASE (test code=LIP) U/L 73.0-393.0 HCG SERUM [id number] 10:36:00* Test Item Value Reference Range Comments HCG SERUM QUAL (test code=HCGQL) NEGATIVE NEGATIVE This HCGQL test is NOT applicable for MALE patients.Check with nurse about probable order error.If Tumor Marker Test needed, nurse should order test "HCGTU"(Test #550.87299) CBC W/O [id number] 10:29:00* Test Item Value Reference Range Comments WHITE BLOOD CELL (test code=WBC) 10.1 K/mm3 4.5-12.5 RED BLOOD CELL (test code=RBC) 4.27 mill/mm3 3.7-5.2 HEMOGLOBIN (test code=HGB) 11.2 gram/dL 11.5-15.5 HEMATOCRIT (test code=HCT) 36.8 % 36.0-46.0 MEAN CELL VOLUME (test code=MCV) 86.2 fL 80-98 MEAN CELL HGB (test code=MCH) 26.2 picogram 27.0-33.0 MEAN CELL HGB CONCETRATION (test code=MCHC) 30.4 gram/dL 33.0-36.0 RED CELL DISTRIBUTION WIDTH (test code=RDW) 18.5 % 11.6-16.2 PLATELET COUNT (test code=PLT) 319 K/mm3 150-450 MEAN PLATELET VOLUME (test code=MPV) 10.3 fL 6.7-11.0 URINALYSIS [id number] 09:08:00* Test Item Value Reference Range Comments UA COLOR (test code=COLU) YELLOW YELLOW UA APPEARANCE (test code=APPU) Cloudy CLEAR UA GLUCOSE DIPSTICK (test code=DGLUU) NEGATIVE mg/dL NEGATIVE UA BILIRUBIN DIPSTICK (test code=BILU) NEGATIVE mg/dL NEGATIVE UA KETONE DIPSTICK (test code=KETU) NEGATIVE mg/dL NEGATIVE UA SPECIFIC GRAVITY (test code=SGU) 1.027 1.001-1.035 UA BLOOD DIPSTICK (test code=ZABRINA) Negative mg/dL NEGATIVE UA PH DIPSTICK (test code=ROC) 6.5 5.0-8.0 UA PROTEIN DIPSTICK (test code=PROU) 20 (Trace) mg/dL NEGATIVE UA UROBILINIOGEN DIPSTICK (test code=URO) 2.0 (1+) mg/dL NEGATIVE UA NITRITE DIPSTICK (test code=NURA) NEGATIVE NEGATIVE UA LEUKOCYTE ESTERASE W REFLEX (test code=LEUUR) NEGATIVE Mihaela/uL NEGATIVE UA WBC (test code=WBCU) 0-5 per HPF 0-5 UA RBC (test code=RBCU) 0-2 #/HPF 0-5 UA EPITHELIAL CELLS (test code=EPIU) MANY per HPF FEW UA BACTERIA (test code=BACU) MODERATE #/HPF NONE UA HYALINE CAST (test code=HYALU) 3-5 #/LPF 0-5 UA MUCUS (test code=MUCU) MODERATE #/LPF FEW Urine Source? Clean CatchURINALYSIS [id number] 09:00:00* Test Item Value Reference Range Comments UA COLOR (test code=COLU) YELLOW YELLOW UA APPEARANCE (test code=APPU) Cloudy CLEAR UA GLUCOSE DIPSTICK (test code=DGLUU) NEGATIVE mg/dL NEGATIVE UA BILIRUBIN DIPSTICK (test code=BILU) NEGATIVE mg/dL NEGATIVE UA KETONE DIPSTICK (test code=KETU) NEGATIVE mg/dL NEGATIVE UA SPECIFIC GRAVITY (test code=SGU) 1.027 1.001-1.035 UA BLOOD DIPSTICK (test code=ZABRINA) Negative mg/dL NEGATIVE UA PH DIPSTICK (test code=ROC) 6.5 5.0-8.0 UA PROTEIN DIPSTICK (test code=PROU) 20 (Trace) mg/dL NEGATIVE UA UROBILINIOGEN DIPSTICK (test code=URO) 2.0 (1+) mg/dL NEGATIVE UA NITRITE DIPSTICK (test code=NURA) NEGATIVE NEGATIVE UA LEUKOCYTE ESTERASE W REFLEX (test code=LEUUR) NEGATIVE Mihaela/uL NEGATIVE UA WBC (test code=WBCU) per HPF 0-5 UA RBC (test code=RBCU) per HPF 0-5 UA EPITHELIAL CELLS (test code=EPIU) per HPF Few UA BACTERIA (test code=BACU) per HPF NONE Urine Source? Clean Catch- XR ABDOMEN AP 1 [id number] 07:58:00 FAX: Cheli Kirk NP [place]: B St: REG Name: HOLLEY GREGG [facility] : [birth year] Age/S: 28/F Duran Srinivasan [facility] Unit #: [id number] Loc: [place] [address] Phys: Cheli Kirk NP Acct: [id number] Dis Date: Status: REG ER PHONE #: [phone] Exam Date: 07/23/2018729 FAX #: [phone] Reason: Abdominal Pain EXAMS: CPT CODE: [id number] XR ABDOMEN AP 1 V [id number] REASON FOR EXAM: Abdominal Pain EXAM ORDER DATE: 07/23/2018 7:22 AM Attending MSherry: Nati Kirk NP PROCEDURE: - XR ABDOMEN AP 1 V COMP ARISON:06/21/2018 FINDINGS: One view of the abdomen obtained at 7:3 0 AM. Scattered fecal material is seen in the colon. The small bowel is unremarkable. No evidence of organomegaly or evidence of ascites. No evid ence of free air. Cholecystectomy clips in the right upper quadrant. IMPRESSION: Unremarkable abdomen. at 0758 Reported and richard d by: Ag Holland M.D. CC: Cheli Kirk NP Technologist: CAMILA MAZARIEGOS Trnscrd Date/Time/By: 07/23/2018 (0758) : By: DimaL Orig Print D/T: S: 07/23/2018 (0801) PAGE 1 Signed Report [id number] 03:42:00* Test Item Value Reference Range Comments GLYCOSYLATED HEMOGLOBIN (HA1C) (test code=GLYHGB) 5.3 % HbA1 4.8-6.0 ESTIMATED AVERAGE GLUCOSE (test code=EAG) 105 MG/DL NOTIFIED EB BROWN V.LAB.KP2 07/18/18 0228[facility] METABOLIC [id number] 03:36:00* Test Item Value Reference Range Comments SODIUM (test code=NA) 140 mmol/L 136-145 POTASSIUM (test code=K) 3.3 mmol/L 3.5-5.1 CHLORIDE (test code=CL) 110.0 mmol/L 98-107 CARBON DIOXIDE (test code=CO2) 21.0 mmol/L 21-32 ANION GAP (test code=GAP) 12.3 10-20 GLUCOSE (test code=GLU) 93 mg/dL 74-106 BLOOD UREA NITROGEN (test code=BUN) 11 mg/dL 7-18 GLOMERULAR FILTRATION RATE (test code=GFR) > 60 mL/min >=60 Estimated GFR by using Modified MDRD formula.Chronic kidney disease is defined as either kidney damageor GFR <60 mL/min/1.73 m2 for >3 months. CREATININE (test code=CREAT) 0.70 mg/dL 0.55-1.02 Note change in reference range due to change in reagent. BUN/CREATININE RATIO (test code=BUN/CREA) 15.7 10-20 CALCIUM (test code=CA) 8.6 mg/dL 8.5-10.1 HARDSTICK NOTIFIED EB LYNCH.[facility] 07/18/18 0228CB W/O [id number] 03:22:00* Test Item Value Reference Range Comments WHITE BLOOD CELL (test code=WBC) 11.2 K/mm3 4.5-12.5 RED BLOOD CELL (test code=RBC) 4.16 mill/mm3 3.7-5.2 HEMOGLOBIN (test code=HGB) 11.0 gram/dL 11.5-15.5 HEMATOCRIT (test code=HCT) 35.9 % 36.0-46.0 MEAN CELL VOLUME (test code=MCV) 86.3 fL 80-98 MEAN CELL HGB (test code=MCH) 26.4 picogram 27.0-33.0 MEAN CELL HGB CONCETRATION (test code=MCHC) 30.6 gram/dL 33.0-36.0 RED CELL DISTRIBUTION WIDTH (test code=RDW) 17.7 % 11.6-16.2 PLATELET COUNT (test code=PLT) 294 K/mm3 150-450 RESULT VERIFIED BY REPEAT ANALYSIS MEAN PLATELET VOLUME (test code=MPV) 10.3 fL 6.7-11.0 VICKIJABIER NOTIFIED EB LYNCH.KP2 07/18/188- CT ABD PELVIS W/O [id number] 18:33:00 Name: HOLLEY GAYLE [facility] : 1990 Age/S: 28 / F [address] Unit #: [id number] Loc: [place] [address] Phys: Nuno Amador MD Acct: [id number] Dis Date: Status: ADM IN PHONE #: [phone] Exam Date: 07/17/2018 1500 FAX #: [phone] Reason: abd pain wbc 22 EXAMS: CPT CODE: [id number] CT ABD PELVIS W/O CONT [id number] REASON FOR EXAM: abd pain wbc 22 EXAM ORDER DATE: 07/17/2018 6:23 PM Ordering M.D.: Nuno Amador MD PROCEDURE: - CT ABD PELVIS W/O CONT noncontrast enhanced axial CT images were acquired through the abdomen/pelvis at 5 mm intervals. Sagittal and coronal reformatted images were generated. Automated exposure control was utilized for this reduction. COMPARISON: None FINDINGS: The absence of IV contrast limits sensitivity of this exam for the detection of soft tissue pathology The visualized lung bases are clear and there is no evidence of pleural or pericardial effusion. No focal lesions are seen in the liver. Prior cholecystectomy. The spleen, adrenals, and pancreas appear normal. No evidence of hydronephrosis or nephrolithiasis. No dilated bowel loops are seen. A normal appendix is visualized in the right lower quadrant. No retroperitoneal, pelvic, or inguinal adenopathy is seen. Prior hysterectomy. No adnexal masses are seen. The urinary bladder appears normal. The bones are within normal limits. IMPRESSION: Limited study due to absence of IV and oral contrast. No acute abnormality seen in the abdomen and pelvis. Prior cholecystectomy. No evidence of hydronephrosis or nephrolithiasis. PAGE 1 Signed Report (CONTINUED) Name: HOLLEY GAYLE [facility] : 1990 Age/S: 28 / F [address] Unit #: [id number] Loc: [place], [place] [address] Phys: Nuno Amador MD Acct: [id number] Dis Date: Status: ADM IN PHONE #: [phone] Exam Date: 07/17/2018 1500 FAX #: [phone] Reason: abd pain wbc 22 EXAMS: CPT CODE: [id number] CT ABD PELVIS W/O CONT [id number] < Continued> at 1833 Reported and signed by: Daryl Acevedo M.D. CC: Raheel Medina MD; Nuno Amador MD Technologist:KIM HEREDIA CTDI: DLP: Trnscb Date/Time: 07/17/2018 (1832) [email or web address] Orig Print D/T: S: 07/17/2018 (1835) PAGE 2 Signed Report - XR CHEST 1 [id number] 16:47:00 FAX: Nuno Amador MD [phone] [place]: St: ADM Name: HOLLEY GREGG [facility] : [birth year] 87 Age/S: 28/F [address] [facility] Unit #: [id number] Loc: [place] [address] Phys: Nuno Amador MD Acct: [id number] Dis Date: Status: ADM IN PHONE #: [phone] Exam Date: 07/17/2018 1625 FAX #: [phone] Reason: cough EXAMS: CPT CODE: [id number] XR CHEST 1 V [id number] REASON FOR EXAM: cough Exam Order Date: 07/17/2018 3:49 PM Ordering Les: Nuno Amador MD PROCEDURE: - XR CHEST 1 V COMPARISON: FINDINGS: The cardiomediastinal silhouette is within normal limits for size. There is no evidence of an acute infiltrate, pleural eff usion, or pneumothorax. The regional bones are within normal limits. The visualized upper abdomen is unremarkable. Cholecystectomy clips are s een in the right upper quadrant. IMPRESSION: No acute cardiopulm onary process. at 1647 Reported and signed by: Daryl Acevedo M.D. CC: Nuno Henriquez MD Technologist: MADDY DOWD RT(R) Trnscrd Date/Time/By: 07/17/2018 (16 47) : By: [email or web address] Orig Print D/T: S: 07/17/2018 (3951) PAGE 1 Signed Report URINALYSIS [id number] 14:26:00* Test Item Value Reference Range Comments UA COLOR (test code=COLU) YELLOW YELLOW UA APPEARANCE (test code=APPU) CLOUDY CLEAR UA GLUCOSE DIPSTICK (test code=DGLUU) 70-100 (1+) mg/dL NEGATIVE UA BILIRUBIN DIPSTICK (test code=BILU) NEGATIVE NEGATIVE UA KETONE DIPSTICK (test code=KETU) NEGATIVE mg/dL NEGATIVE UA SPECIFIC GRAVITY (test code=SGU) >=1.030 1.001-1.035 UA BLOOD DIPSTICK (test code=ZABRINA) TRACE NEGATIVE UA PH DIPSTICK (test code=ROC) 6.0 5.0-8.0 UA PROTEIN DIPSTICK (test code=PROU) 1+ mg/dL Neg-15 UA UROBILINIOGEN DIPSTICK (test code=URO) 0.2 mg/dL 0.0-0.2 UA NITRITE DIPSTICK (test code=NURA) NEGATIVE NEGATIVE UA LEUKOCYTE ESTERASE W REFLEX (test code=LEUUR) NEGATIVE NEGATIVE UA WBC (test code=WBCU) 0-5 per HPF 0-5 UA RBC (test code=RBCU) 0-2 per HPF 0-5 UA EPITHELIAL CELLS (test code=EPIU) Moderate (5-10/hpf) per HPF Few UA BACTERIA (test code=BACU) MODERATE per HPF NONE UA MUCUS (test code=MUCU) MODERATE per LPF NONE-FEW UA AMORPHOUS SEDIMENT (test code=AMORU) MANY per LPF NONE Urine Source? Clean CatchBASIC METABOLIC [id number] 14:23:00* Test Item Value Reference Range Comments SODIUM (test code=NA) 136 mmol/L 136-145 POTASSIUM (test code=K) 3.0 mmol/L 3.5-5.1 CHLORIDE (test code=CL) 103.0 mmol/L 98-107 CARBON DIOXIDE (test code=CO2) 22.0 mmol/L 21-32 ANION GAP (test code=GAP) 14.0 10-20 GLUCOSE (test code=GLU) 176 mg/dL 74-106 BLOOD UREA NITROGEN (test code=BUN) 12 mg/dL 7-18 GLOMERULAR FILTRATION RATE (test code=GFR) > 60 mL/min >=60 Estimated GFR by using Modified MDRD formula.Chronic kidney disease is defined as either kidney damageor GFR <60 mL/min/1.73 m2 for >3 months. CREATININE (test code=CREAT) 0.90 mg/dL 0.55-1.02 Note change in reference range due to change in reagent. BUN/CREATININE RATIO (test code=BUN/CREA) 13.3 10-20 CALCIUM (test code=CA) 9.6 mg/dL 8.5-10.1 HEPATIC FUNCTION [id number] 14:23:00* Test Item Value Reference Range Comments TOTAL PROTEIN (test code=PROT) 9.4 gram/dL 6.4-8.2 ALBUMIN (test code=ALB) 4.6 g/dL 3.4-5.0 GLOBULIN (test code=GLOB) 4.8 gram/dL 2.7-4.2 ALBUMIN/GLOBULIN RATIO (test code=A/G) 1.0 0.75-1.50 BILIRUBIN TOTAL (test code=BILT) 0.30 mg/dL 0.0-1.0 BILIRUBIN DIRECT (test code=BILD) 0.11 mg/dL 0.0-0.20 SGOT/AST (test code=AST) 17 IUnit/L 15-37 SGPT/ALT (test code=ALT) 33 IUnit/L 12-78 ALKALINE PHOSPHATASE TOTAL (test code=ALKP) 116 IUnit/L 45-117 Note change in reference range due to change in reagent. [id number] 14:23:00* Test Item Value Reference Range Comments LIPASE (test code=LIP) 62 U/L 73.0-393.0 HCG SERUM [id number] 14:23:00* Test Item Value Reference Range Comments HCG SERUM QUAL (test code=HCGQL) NEGATIVE NEGATIVE This HCGQL test is NOT applicable for MALE patients.Check with nurse about probable order error.If Tumor Marker Test needed, nurse should order test "HCGTU"(Test #550.74271) [id number] 14:23:00* Test Item Value Reference Range Comments TROPONIN-I (test code=TROPI) <0.015 ng/mL 0-0.045 URINALYSIS [id number] 14:15:00* Test Item Value Reference Range Comments UA COLOR (test code=COLU) YELLOW YELLOW UA APPEARANCE (test code=APPU) CLOUDY CLEAR UA GLUCOSE DIPSTICK (test code=DGLUU) 70-100 (1+) mg/dL NEGATIVE UA BILIRUBIN DIPSTICK (test code=BILU) NEGATIVE NEGATIVE UA KETONE DIPSTICK (test code=KETU) NEGATIVE mg/dL NEGATIVE UA SPECIFIC GRAVITY (test code=SGU) >=1.030 1.001-1.035 UA BLOOD DIPSTICK (test code=ZABRINA) TRACE NEGATIVE UA PH DIPSTICK (test code=ROC) 6.0 5.0-8.0 UA PROTEIN DIPSTICK (test code=PROU) 1+ mg/dL Neg-15 UA UROBILINIOGEN DIPSTICK (test code=URO) 0.2 mg/dL 0.0-0.2 UA NITRITE DIPSTICK (test code=NURA) NEGATIVE NEGATIVE UA LEUKOCYTE ESTERASE W REFLEX (test code=LEUUR) NEGATIVE NEGATIVE UA WBC (test code=WBCU) per HPF 0-5 UA RBC (test code=RBCU) per HPF 0-5 UA EPITHELIAL CELLS (test code=EPIU) per HPF Few UA BACTERIA (test code=BACU) per HPF NONE Urine Source? Clean CatchBASIC METABOLIC [id number] 14:12:00* Test Item Value Reference Range Comments SODIUM (test code=NA) mmol/L 136-145 POTASSIUM (test code=K) mmol/L 3.5-5.1 CHLORIDE (test code=CL) mmol/L 98-107 CARBON DIOXIDE (test code=CO2) mmol/L 21-32 ANION GAP (test code=GAP) 10-20 GLUCOSE (test code=GLU) mg/dL 74-106 BLOOD UREA NITROGEN (test code=BUN) mg/dL 7-18 GLOMERULAR FILTRATION RATE (test code=GFR) mL/min >=60 CREATININE (test code=CREAT) mg/dL 0.55-1.02 BUN/CREATININE RATIO (test code=BUN/CREA) 10-20 CALCIUM (test code=CA) mg/dL 8.5-10.1 HEPATIC FUNCTION [id number] 14:12:00* Test Item Value Reference Range Comments TOTAL PROTEIN (test code=PROT) gram/dL 6.4-8.2 ALBUMIN (test code=ALB) g/dL 3.4-5.0 GLOBULIN (test code=GLOB) gram/dL 2.7-4.2 ALBUMIN/GLOBULIN RATIO (test code=A/G) 0.75-1.50 BILIRUBIN TOTAL (test code=BILT) mg/dL 0.0-1.0 BILIRUBIN DIRECT (test code=BILD) mg/dL 0.0-0.20 SGOT/AST (test code=AST) IUnit/L 15-37 SGPT/ALT (test code=ALT) IUnit/L 12-78 ALKALINE PHOSPHATASE TOTAL (test code=ALKP) IUnit/L 45-117 [id number] 14:12:00* Test Item Value Reference Range Comments LIPASE (test code=LIP) U/L 73.0-393.0 HCG SERUM [id number] 14:12:00* Test Item Value Reference Range Comments HCG SERUM QUAL (test code=HCGQL) NEGATIVE NEGATIVE This HCGQL test is NOT applicable for MALE patients.Check with nurse about probable order error.If Tumor Marker Test needed, nurse should order test "HCGTU"(Test #550.23927) [id number] 14:12:00* Test Item Value Reference Range Comments TROPONIN-I (test code=TROPI) ng/mL 0-0.045 CBC W/O [id number] 13:59:00* Test Item Value Reference Range Comments WHITE BLOOD CELL (test code=WBC) 22.5 K/mm3 4.5-12.5 RED BLOOD CELL (test code=RBC) 4.76 mill/mm3 3.7-5.2 HEMOGLOBIN (test code=HGB) 12.5 gram/dL 11.5-15.5 HEMATOCRIT (test code=HCT) 39.8 % 36.0-46.0 MEAN CELL VOLUME (test code=MCV) 83.6 fL 80-98 MEAN CELL HGB (test code=MCH) 26.3 picogram 27.0-33.0 MEAN CELL HGB CONCETRATION (test code=MCHC) 31.4 gram/dL 33.0-36.0 RED CELL DISTRIBUTION WIDTH (test code=RDW) 17.4 % 11.6-16.2 PLATELET COUNT (test code=PLT) 423 K/mm3 150-450 MEAN PLATELET VOLUME (test code=MPV) 10.4 fL 6.7-11.0 - CT HEAD/BRAIN W/O [id number] 13:47:00 Name: HOLLEY GAYLE [facility] : 1990 Age/S: 28 / F [address] [facility] Unit #: [id number] Loc: [place] [address] Phys: Nuno Amador MD Acct: [id number] Dis Date: Status: REG ER PHONE #: [phone] Exam Date: 07/17/2018 1250 FAX #: [phone] Reason: seizure EXAMS: CPT CODE: [id number] CT HEAD/BRAIN W/O CONT [id number] HISTORY: seizure TECHNIQUE: Noncontrast 2.[address] of the head. Examination acquired within 24 hours of arrival. Automated exposure control for dose reduction. COMPARISON: Noncontrast CT brain February 20, 2018 FINDINGS: No acute hemorrhage. No intracranial mass, mass effect, or midline shift. No CT evidence of acute infarct. Roberto-white matter differentiation is preserved. No hydrocephalus. No extra-axial fluid collection. Near complete opacification of the right maxillary sinus appears similar to the prior exam and may reflect chronic sinusitis. Remainder of the paranasal sinuses are clear.. Mastoid air cells and middle ear cavities are clear. Orbital contents are unremarkable. Calvarium and skull base are intact. IMPRESSION: No acute intracranial process. Chronic opacification of the right maxillary sinus is unchanged from the previous exam. at 1347 Reported and signed by: Kamron Ariza MD CC: Nuno Amador MD Technologist:KIM LIMA CT; ... CTDI: DLP: Trnscb Date/Time: 07/17/2018 (1346) [email or web address] Orig Print D/T: S: 07/17/2018 (1342) PAGE 1 Signed Report BASIC METABOLIC [id number] 09:10:00* Test Item Value Reference Range Comments SODIUM (test code=NA) 140 mmol/L 136-145 POTASSIUM (test code=K) 4.0 mmol/L 3.5-5.1 CHLORIDE (test code=CL) 108.0 mmol/L 98-107 CARBON DIOXIDE (test code=CO2) 27.0 mmol/L 21-32 ANION GAP (test code=GAP) 9.0 10-20 GLUCOSE (test code=GLU) 78 mg/dL 74-106 BLOOD UREA NITROGEN (test code=BUN) 15 mg/dL 7-18 GLOMERULAR FILTRATION RATE (test code=GFR) > 60 mL/min >=60 Estimated GFR by using Modified MDRD formula.Chronic kidney disease is defined as either kidney damageor GFR <60 mL/min/1.73 m2 for >3 months. CREATININE (test code=CREAT) 0.70 mg/dL 0.55-1.02 Note change in reference range due to change in reagent. BUN/CREATININE RATIO (test code=BUN/CREA) 21.4 10-20 CALCIUM (test code=CA) 9.4 mg/dL 8.5-10.1 HEPATIC FUNCTION [id number] 09:10:00* Test Item Value Reference Range Comments TOTAL PROTEIN (test code=PROT) 8.2 gram/dL 6.4-8.2 ALBUMIN (test code=ALB) 3.9 g/dL 3.4-5.0 GLOBULIN (test code=GLOB) 4.3 gram/dL 2.7-4.2 ALBUMIN/GLOBULIN RATIO (test code=A/G) 0.9 0.75-1.50 BILIRUBIN TOTAL (test code=BILT) 0.20 mg/dL 0.0-1.0 BILIRUBIN DIRECT (test code=BILD) 0.06 mg/dL 0.0-0.20 SGOT/AST (test code=AST) 12 IUnit/L 15-37 SGPT/ALT (test code=ALT) 46 IUnit/L 12-78 ALKALINE PHOSPHATASE TOTAL (test code=ALKP) 109 IUnit/L 45-117 Note change in reference range due to change in reagent. [id number] 09:10:00* Test Item Value Reference Range Comments LIPASE (test code=LIP) 220 U/L 73.0-393.0 HCG SERUM [id number] 09:10:00* Test Item Value Reference Range Comments HCG SERUM QUAL (test code=HCGQL) NEGATIVE NEGATIVE This HCGQL test is NOT applicable for MALE patients.Check with nurse about probable order error.If Tumor Marker Test needed, nurse should order test "HCGTU"(Test #550.56429) BASIC METABOLIC [id number] 09:05:00* Test Item Value Reference Range Comments SODIUM (test code=NA) 140 mmol/L 136-145 POTASSIUM (test code=K) 4.0 mmol/L 3.5-5.1 CHLORIDE (test code=CL) 108.0 mmol/L 98-107 CARBON DIOXIDE (test code=CO2) mmol/L 21-32 ANION GAP (test code=GAP) 10-20 GLUCOSE (test code=GLU) mg/dL 74-106 BLOOD UREA NITROGEN (test code=BUN) mg/dL 7-18 GLOMERULAR FILTRATION RATE (test code=GFR) mL/min >=60 CREATININE (test code=CREAT) mg/dL 0.55-1.02 BUN/CREATININE RATIO (test code=BUN/CREA) 10-20 CALCIUM (test code=CA) mg/dL 8.5-10.1 HEPATIC FUNCTION [id number] 09:05:00* Test Item Value Reference Range Comments TOTAL PROTEIN (test code=PROT) gram/dL 6.4-8.2 ALBUMIN (test code=ALB) g/dL 3.4-5.0 GLOBULIN (test code=GLOB) gram/dL 2.7-4.2 ALBUMIN/GLOBULIN RATIO (test code=A/G) 0.75-1.50 BILIRUBIN TOTAL (test code=BILT) mg/dL 0.0-1.0 BILIRUBIN DIRECT (test code=BILD) mg/dL 0.0-0.20 SGOT/AST (test code=AST) IUnit/L 15-37 SGPT/ALT (test code=ALT) IUnit/L 12-78 ALKALINE PHOSPHATASE TOTAL (test code=ALKP) IUnit/L 45-117 [id number] 09:05:00* Test Item Value Reference Range Comments LIPASE (test code=LIP) U/L 73.0-393.0 HCG SERUM [id number] 09:05:00* Test Item Value Reference Range Comments HCG SERUM QUAL (test code=HCGQL) NEGATIVE NEGATIVE This HCGQL test is NOT applicable for MALE patients.Check with nurse about probable order error.If Tumor Marker Test needed, nurse should order test "HCGTU"(Test #550.44192) BASIC METABOLIC [id number] 09:00:00* Test Item Value Reference Range Comments SODIUM (test code=NA) 140 mmol/L 136-145 POTASSIUM (test code=K) 4.0 mmol/L 3.5-5.1 CHLORIDE (test code=CL) 108.0 mmol/L 98-107 CARBON DIOXIDE (test code=CO2) mmol/L 21-32 ANION GAP (test code=GAP) 10-20 GLUCOSE (test code=GLU) mg/dL 74-106 BLOOD UREA NITROGEN (test code=BUN) mg/dL 7-18 GLOMERULAR FILTRATION RATE (test code=GFR) mL/min >=60 CREATININE (test code=CREAT) mg/dL 0.55-1.02 BUN/CREATININE RATIO (test code=BUN/CREA) 10-20 CALCIUM (test code=CA) mg/dL 8.5-10.1 HEPATIC FUNCTION [id number] 09:00:00* Test Item Value Reference Range Comments TOTAL PROTEIN (test code=PROT) gram/dL 6.4-8.2 ALBUMIN (test code=ALB) g/dL 3.4-5.0 GLOBULIN (test code=GLOB) gram/dL 2.7-4.2 ALBUMIN/GLOBULIN RATIO (test code=A/G) 0.75-1.50 BILIRUBIN TOTAL (test code=BILT) mg/dL 0.0-1.0 BILIRUBIN DIRECT (test code=BILD) mg/dL 0.0-0.20 SGOT/AST (test code=AST) IUnit/L 15-37 SGPT/ALT (test code=ALT) IUnit/L 12-78 ALKALINE PHOSPHATASE TOTAL (test code=ALKP) IUnit/L 45-117 [id number] 09:00:00* Test Item Value Reference Range Comments LIPASE (test code=LIP) U/L 73.0-393.0 HCG SERUM [id number] 09:00:00* Test Item Value Reference Range Comments HCG SERUM QUAL (test code=HCGQL) NEGATIVE URINALYSIS [id number] 08:42:00* Test Item Value Reference Range Comments UA COLOR (test code=COLU) YELLOW YELLOW UA APPEARANCE (test code=APPU) Cloudy CLEAR UA GLUCOSE DIPSTICK (test code=DGLUU) NEGATIVE mg/dL NEGATIVE UA BILIRUBIN DIPSTICK (test code=BILU) NEGATIVE mg/dL NEGATIVE UA KETONE DIPSTICK (test code=KETU) NEGATIVE mg/dL NEGATIVE UA SPECIFIC GRAVITY (test code=SGU) 1.024 1.001-1.035 UA BLOOD DIPSTICK (test code=ZBARINA) Negative mg/dL NEGATIVE UA PH DIPSTICK (test code=ROC) 6.0 5.0-8.0 UA PROTEIN DIPSTICK (test code=PROU) NEGATIVE mg/dL NEGATIVE UA UROBILINIOGEN DIPSTICK (test code=URO) NEGATIVE mg/dL NEGATIVE UA NITRITE DIPSTICK (test code=NURA) NEGATIVE NEGATIVE UA LEUKOCYTE ESTERASE W REFLEX (test code=LEUUR) NEGATIVE Mihaela/uL NEGATIVE UA WBC (test code=WBCU) 0-5 per HPF 0-5 UA RBC (test code=RBCU) 0-2 #/HPF 0-5 UA EPITHELIAL CELLS (test code=EPIU) MANY per HPF FEW UA BACTERIA (test code=BACU) MODERATE #/HPF NONE UA MUCUS (test code=MUCU) FEW #/LPF FEW Urine Source? Clean CatchCBC W/O [id number] 08:29:00* Test Item Value Reference Range Comments WHITE BLOOD CELL (test code=WBC) 6.0 K/mm3 4.5-12.5 RED BLOOD CELL (test code=RBC) 4.11 mill/mm3 3.7-5.2 HEMOGLOBIN (test code=HGB) 10.8 gram/dL 11.5-15.5 HEMATOCRIT (test code=HCT) 36.0 % 36.0-46.0 MEAN CELL VOLUME (test code=MCV) 87.6 fL 80-98 MEAN CELL HGB (test code=MCH) 26.3 picogram 27.0-33.0 MEAN CELL HGB CONCETRATION (test code=MCHC) 30.0 gram/dL 33.0-36.0 RED CELL DISTRIBUTION WIDTH (test code=RDW) 18.4 % 11.6-16.2 PLATELET COUNT (test code=PLT) 399 K/mm3 150-450 MEAN PLATELET VOLUME (test code=MPV) 10.5 fL 6.7-11.0 URINALYSIS [id number] 09:55:00* Test Item Value Reference Range Comments UA COLOR (test code=COLU) YELLOW YELLOW UA APPEARANCE (test code=APPU) SLIGHTLY CLOUDY CLEAR UA GLUCOSE DIPSTICK (test code=DGLUU) NEGATIVE mg/dL NEGATIVE UA BILIRUBIN DIPSTICK (test code=BILU) NEGATIVE mg/dL NEGATIVE UA KETONE DIPSTICK (test code=KETU) NEGATIVE mg/dL NEGATIVE UA SPECIFIC GRAVITY (test code=SGU) 1.026 1.001-1.035 UA BLOOD DIPSTICK (test code=ZABRINA) Negative mg/dL NEGATIVE UA PH DIPSTICK (test code=ROC) 6.0 5.0-8.0 UA PROTEIN DIPSTICK (test code=PROU) NEGATIVE mg/dL NEGATIVE UA UROBILINIOGEN DIPSTICK (test code=URO) NEGATIVE mg/dL NEGATIVE UA NITRITE DIPSTICK (test code=NURA) NEGATIVE NEGATIVE UA LEUKOCYTE ESTERASE W REFLEX (test code=LEUUR) NEGATIVE Mihaela/uL NEGATIVE UA WBC (test code=WBCU) 0-5 per HPF 0-5 UA RBC (test code=RBCU) 0-2 #/HPF 0-5 UA EPITHELIAL CELLS (test code=EPIU) FEW per HPF FEW UA BACTERIA (test code=BACU) FEW #/HPF NONE UA MUCUS (test code=MUCU) FEW #/LPF FEW Urine Source? Clean CatchDRUGS OF ABUSE SCREEN [id number] 09:55:00* Test Item Value Reference Range Comments URN COCAINE (test code=COCAURN) NEGATIVE <300 ng/mL URN CANNABINOIDS (test code=CANNABURN) POSITIVE <50 ng/mL This test provides only a preliminary test result. A morespecific alternate chemical method must be used in order toobtain a confirmed analytical result. Gas chromatography/mass spectrometry (GC/MS) is thepreferred confirmatory method. Other chemical confirmationmethods are available. Clinical consideration and professional judgment should be applied to any drug of abusetest result, particularly when preliminary positive resultsare used.Unconfirmed screening results must not be used fornon-medical purposes (e.g., employment testing, legaltesting). URN AMPHETAMINE (test code=AMPHETURN) NEGATIVE <1000 ng/mL URN BARBITURATE (test code=BARBITURN) NEGATIVE <200 ng/mL URN BENZODIAZEPINE (test code=BENZOURN) POSITIVE <200 ng/mL This test provides only a preliminary test result. A morespecific alternate chemical method must be used in order toobtain a confirmed analytical result. Gas chromatography/mass spectrometry (GC/MS) is thepreferred confirmatory method. Other chemical confirmationmethods are available. Clinical consideration and professional judgment should be applied to any drug of abusetest result, particularly when preliminary positive resultsare used.Unconfirmed screening results must not be used fornon-medical purposes (e.g., employment testing, legaltesting). URN OPIATES (test code=OPIATURN) NEGATIVE <300 ng/mL URN PHENCYCLIDINE (PCP) (test code=PHENCURN) NEGATIVE <25 ng/mL URN METHADONE (test code=METHAURN) NEGATIVE <300 ng/mL Urine Source? Clean CatchBASIC METABOLIC [id number] 09:32:00* Test Item Value Reference Range Comments SODIUM (test code=NA) 142 mmol/L 136-145 POTASSIUM (test code=K) 3.7 mmol/L 3.5-5.1 CHLORIDE (test code=CL) 110.0 mmol/L 98-107 CARBON DIOXIDE (test code=CO2) 26.0 mmol/L 21-32 ANION GAP (test code=GAP) 9.7 10-20 GLUCOSE (test code=GLU) 90 mg/dL 74-106 BLOOD UREA NITROGEN (test code=BUN) 11 mg/dL 7-18 GLOMERULAR FILTRATION RATE (test code=GFR) > 60 mL/min >=60 Estimated GFR by using Modified MDRD formula.Chronic kidney disease is defined as either kidney damageor GFR <60 mL/min/1.73 m2 for >3 months. CREATININE (test code=CREAT) 0.60 mg/dL 0.55-1.02 Note change in reference range due to change in reagent. BUN/CREATININE RATIO (test code=BUN/CREA) 18.3 10-20 CALCIUM (test code=CA) 8.9 mg/dL 8.5-10.1 HEPATIC FUNCTION [id number] 09:32:00* Test Item Value Reference Range Comments TOTAL PROTEIN (test code=PROT) 7.9 gram/dL 6.4-8.2 ALBUMIN (test code=ALB) 3.9 g/dL 3.4-5.0 GLOBULIN (test code=GLOB) 4.0 gram/dL 2.7-4.2 ALBUMIN/GLOBULIN RATIO (test code=A/G) 1.0 0.75-1.50 BILIRUBIN TOTAL (test code=BILT) 0.30 mg/dL 0.0-1.0 BILIRUBIN DIRECT (test code=BILD) 0.09 mg/dL 0.0-0.20 SGOT/AST (test code=AST) 9 IUnit/L 15-37 SGPT/ALT (test code=ALT) 19 IUnit/L 12-78 ALKALINE PHOSPHATASE TOTAL (test code=ALKP) 86 IUnit/L 45-117 Note change in reference range due to change in reagent. [id number] 09:32:00* Test Item Value Reference Range Comments LIPASE (test code=LIP) 99 U/L 73.0-393.0 HCG SERUM [id number] 09:32:00* Test Item Value Reference Range Comments HCG SERUM QUAL (test code=HCGQL) NEGATIVE NEGATIVE This HCGQL test is NOT applicable for MALE patients.Check with nurse about probable order error.If Tumor Marker Test needed, nurse should order test "HCGTU"(Test #550.95880) BASIC METABOLIC [id number] 09:22:00* Test Item Value Reference Range Comments SODIUM (test code=NA) 142 mmol/L 136-145 POTASSIUM (test code=K) 3.7 mmol/L 3.5-5.1 CHLORIDE (test code=CL) 110.0 mmol/L 98-107 CARBON DIOXIDE (test code=CO2) mmol/L 21-32 ANION GAP (test code=GAP) 10-20 GLUCOSE (test code=GLU) mg/dL 74-106 BLOOD UREA NITROGEN (test code=BUN) mg/dL 7-18 GLOMERULAR FILTRATION RATE (test code=GFR) mL/min >=60 CREATININE (test code=CREAT) mg/dL 0.55-1.02 BUN/CREATININE RATIO (test code=BUN/CREA) 10-20 CALCIUM (test code=CA) mg/dL 8.5-10.1 HEPATIC FUNCTION [id number] 09:22:00* Test Item Value Reference Range Comments TOTAL PROTEIN (test code=PROT) gram/dL 6.4-8.2 ALBUMIN (test code=ALB) g/dL 3.4-5.0 GLOBULIN (test code=GLOB) gram/dL 2.7-4.2 ALBUMIN/GLOBULIN RATIO (test code=A/G) 0.75-1.50 BILIRUBIN TOTAL (test code=BILT) mg/dL 0.0-1.0 BILIRUBIN DIRECT (test code=BILD) mg/dL 0.0-0.20 SGOT/AST (test code=AST) IUnit/L 15-37 SGPT/ALT (test code=ALT) IUnit/L 12-78 ALKALINE PHOSPHATASE TOTAL (test code=ALKP) IUnit/L 45-117 [id number] 09:22:00* Test Item Value Reference Range Comments LIPASE (test code=LIP) U/L 73.0-393.0 HCG SERUM [id number] 09:22:00* Test Item Value Reference Range Comments HCG SERUM QUAL (test code=HCGQL) NEGATIVE NEGATIVE This HCGQL test is NOT applicable for MALE patients.Check with nurse about probable order error.If Tumor Marker Test needed, nurse should order test "HCGTU"(Test #550.90883) BASIC METABOLIC [id number] 09:21:00* Test Item Value Reference Range Comments SODIUM (test code=NA) mmol/L 136-145 POTASSIUM (test code=K) mmol/L 3.5-5.1 CHLORIDE (test code=CL) mmol/L 98-107 CARBON DIOXIDE (test code=CO2) mmol/L 21-32 ANION GAP (test code=GAP) 10-20 GLUCOSE (test code=GLU) mg/dL 74-106 BLOOD UREA NITROGEN (test code=BUN) mg/dL 7-18 GLOMERULAR FILTRATION RATE (test code=GFR) mL/min >=60 CREATININE (test code=CREAT) mg/dL 0.55-1.02 BUN/CREATININE RATIO (test code=BUN/CREA) 10-20 CALCIUM (test code=CA) mg/dL 8.5-10.1 HEPATIC FUNCTION [id number] 09:21:00* Test Item Value Reference Range Comments TOTAL PROTEIN (test code=PROT) gram/dL 6.4-8.2 ALBUMIN (test code=ALB) g/dL 3.4-5.0 GLOBULIN (test code=GLOB) gram/dL 2.7-4.2 ALBUMIN/GLOBULIN RATIO (test code=A/G) 0.75-1.50 BILIRUBIN TOTAL (test code=BILT) mg/dL 0.0-1.0 BILIRUBIN DIRECT (test code=BILD) mg/dL 0.0-0.20 SGOT/AST (test code=AST) IUnit/L 15-37 SGPT/ALT (test code=ALT) IUnit/L 12-78 ALKALINE PHOSPHATASE TOTAL (test code=ALKP) IUnit/L 45-117 [id number] 09:21:00* Test Item Value Reference Range Comments LIPASE (test code=LIP) U/L 73.0-393.0 HCG SERUM [id number] 09:21:00* Test Item Value Reference Range Comments HCG SERUM QUAL (test code=HCGQL) NEGATIVE NEGATIVE This HCGQL test is NOT applicable for MALE patients.Check with nurse about probable order error.If Tumor Marker Test needed, nurse should order test "HCGTU"(Test #550.69498) URINALYSIS [id number] 09:07:00* Test Item Value Reference Range Comments UA COLOR (test code=COLU) YELLOW YELLOW UA APPEARANCE (test code=APPU) SLIGHTLY CLOUDY CLEAR UA GLUCOSE DIPSTICK (test code=DGLUU) NEGATIVE mg/dL NEGATIVE UA BILIRUBIN DIPSTICK (test code=BILU) NEGATIVE mg/dL NEGATIVE UA KETONE DIPSTICK (test code=KETU) NEGATIVE mg/dL NEGATIVE UA SPECIFIC GRAVITY (test code=SGU) 1.026 1.001-1.035 UA BLOOD DIPSTICK (test code=ZABRINA) Negative mg/dL NEGATIVE UA PH DIPSTICK (test code=ROC) 6.0 5.0-8.0 UA PROTEIN DIPSTICK (test code=PROU) NEGATIVE mg/dL NEGATIVE UA UROBILINIOGEN DIPSTICK (test code=URO) NEGATIVE mg/dL NEGATIVE UA NITRITE DIPSTICK (test code=NURA) NEGATIVE NEGATIVE UA LEUKOCYTE ESTERASE W REFLEX (test code=LEUUR) NEGATIVE Mihaela/uL NEGATIVE UA WBC (test code=WBCU) 0-5 per HPF 0-5 UA RBC (test code=RBCU) 0-2 #/HPF 0-5 UA EPITHELIAL CELLS (test code=EPIU) FEW per HPF FEW UA BACTERIA (test code=BACU) FEW #/HPF NONE UA MUCUS (test code=MUCU) FEW #/LPF FEW Urine Source? Clean CatchDRUGS OF ABUSE SCREEN [id number] 09:07:00* Test Item Value Reference Range Comments URN COCAINE (test code=COCAURN) <300 ng/mL URN CANNABINOIDS (test code=CANNABURN) <50 ng/mL URN AMPHETAMINE (test code=AMPHETURN) <1000 ng/mL URN BARBITURATE (test code=BARBITURN) <200 ng/mL URN BENZODIAZEPINE (test code=BENZOURN) <200 ng/mL URN OPIATES (test code=OPIATURN) <300 ng/mL URN PHENCYCLIDINE (PCP) (test code=PHENCURN) <25 ng/mL URN METHADONE (test code=METHAURN) <300 ng/mL Urine Source? Clean CatchURINALYSIS [id number] 09:02:00* Test Item Value Reference Range Comments UA COLOR (test code=COLU) YELLOW YELLOW UA APPEARANCE (test code=APPU) SLIGHTLY CLOUDY CLEAR UA GLUCOSE DIPSTICK (test code=DGLUU) NEGATIVE mg/dL NEGATIVE UA BILIRUBIN DIPSTICK (test code=BILU) NEGATIVE mg/dL NEGATIVE UA KETONE DIPSTICK (test code=KETU) NEGATIVE mg/dL NEGATIVE UA SPECIFIC GRAVITY (test code=SGU) 1.026 1.001-1.035 UA BLOOD DIPSTICK (test code=ZABRINA) Negative mg/dL NEGATIVE UA PH DIPSTICK (test code=ROC) 6.0 5.0-8.0 UA PROTEIN DIPSTICK (test code=PROU) NEGATIVE mg/dL NEGATIVE UA UROBILINIOGEN DIPSTICK (test code=URO) NEGATIVE mg/dL NEGATIVE UA NITRITE DIPSTICK (test code=NURA) NEGATIVE NEGATIVE UA LEUKOCYTE ESTERASE W REFLEX (test code=LEUUR) NEGATIVE Mihaela/uL NEGATIVE UA WBC (test code=WBCU) per HPF 0-5 UA RBC (test code=RBCU) per HPF 0-5 UA EPITHELIAL CELLS (test code=EPIU) per HPF Few UA BACTERIA (test code=BACU) per HPF NONE Urine Source? Clean CatchDRUGS OF ABUSE SCREEN [id number] 09:02:00* Test Item Value Reference Range Comments URN COCAINE (test code=COCAURN) <300 ng/mL URN CANNABINOIDS (test code=CANNABURN) <50 ng/mL URN AMPHETAMINE (test code=AMPHETURN) <1000 ng/mL URN BARBITURATE (test code=BARBITURN) <200 ng/mL URN BENZODIAZEPINE (test code=BENZOURN) <200 ng/mL URN OPIATES (test code=OPIATURN) <300 ng/mL URN PHENCYCLIDINE (PCP) (test code=PHENCURN) <25 ng/mL URN METHADONE (test code=METHAURN) <300 ng/mL Urine Source? Clean CatchCBC W/O [id number] 09:00:00* Test Item Value Reference Range Comments WHITE BLOOD CELL (test code=WBC) 7.9 K/mm3 4.5-12.5 RED BLOOD CELL (test code=RBC) 4.16 mill/mm3 3.7-5.2 HEMOGLOBIN (test code=HGB) 10.8 gram/dL 11.5-15.5 HEMATOCRIT (test code=HCT) 35.9 % 36.0-46.0 MEAN CELL VOLUME (test code=MCV) 86.3 fL 80-98 MEAN CELL HGB (test code=MCH) 26.0 picogram 27.0-33.0 MEAN CELL HGB CONCETRATION (test code=MCHC) 30.1 gram/dL 33.0-36.0 RED CELL DISTRIBUTION WIDTH (test code=RDW) 18.6 % 11.6-16.2 PLATELET COUNT (test code=PLT) 388 K/mm3 150-450 MEAN PLATELET VOLUME (test code=MPV) 10.3 fL 6.7-11.0 - XR ABDOMEN AP 1 [id number] 08:29:00 FAX: Samia Tamez [place]: B St: REG Name: HOLLEY GREGG [facility] : [birth year] Age/S: 28/F [address] Unit #: [id number] Loc: [place] [address] Phys: Samia Tamez PLANT ETIOLOGIST Acct: [id number] Dis Date: Status: REG ER PHONE #: [phone] Exam Date: 06/21/2018823 FAX #: [phone] Reason: ABD PAIN EXAMS: CPT CODE: [id number] XR ABDOMEN AP 1 V 60804 HISTORY: Abdominal pain. COMPARISON: June 18, 2018. No bowel obstruction. Constipation. Patient is post cholecystectomy phlebolith in the right hemipelvis. Óscar arent donor site along the right iliac wing. IMPRESSION No bowel obstruction. Mild constipation. Patient is post cholecy stectomy. a t 0829 Reported and signed by: Tho Rangel M.D. CC: Samia Tamez NP Technologist: Yovany PEREZ(R) Trnscrd Da te/Time/By: 06/21/2018 (08) : By: [email or web address] Orig Print D/T: S: 06/21 (0832) PAGE 1 Signed Report - XR ABDOMEN AP 1 [id number] 21:05:00 FAX: Parag Eagle [place]: B St: REG Name: HOLLEY GREGG [facility] : [birth year] Age/S: 28/F [address] Unit #: [id number] Loc: [place] [address] Phys: Parag Eagle MD Acct: [id number] Dis Date: Status: REG ER PHONE #: [phone] Exam Date: 06/18/20182034 FAX #: [phone] Reason: vomiting, pain EXAMS: CPT CODE: [id number] XR ABDOMEN AP 1 V 50032 HISTORY: Vomiting. C OMPARISON: April 08, 2018. No bowel obstruction. Mild constipat ion. Patient is post cholecystectomy. The upper abdomen is incompletely included slightly limiting evaluation. No pathologic calcifications. IMPRESSION: No bowel obstruction. Constipation. at 2104 Reported and signed by: Tho Rangel M.D. CC: Parag Eagle MD Technologist: MADDY PEREZ(R) Trnscrd Date/Time/By: 06/18/2018 (2104) : By: [email or web address] Orig Print D/T: S: 06/18/2018 (2107) PAGE 1 Signed Report URINALYSIS [id number] 19:49:00* Test Item Value Reference Range Comments UA COLOR (test code=COLU) LIGHT YELLOW YELLOW UA APPEARANCE (test code=APPU) Cloudy CLEAR UA GLUCOSE DIPSTICK (test code=DGLUU) NEGATIVE mg/dL NEGATIVE UA BILIRUBIN DIPSTICK (test code=BILU) NEGATIVE mg/dL NEGATIVE UA KETONE DIPSTICK (test code=KETU) NEGATIVE mg/dL NEGATIVE UA SPECIFIC GRAVITY (test code=SGU) 1.027 1.001-1.035 UA BLOOD DIPSTICK (test code=ZABRINA) Negative mg/dL NEGATIVE UA PH DIPSTICK (test code=ROC) 6.0 5.0-8.0 UA PROTEIN DIPSTICK (test code=PROU) 30 (1+) mg/dL NEGATIVE UA UROBILINIOGEN DIPSTICK (test code=URO) NEGATIVE mg/dL NEGATIVE UA NITRITE DIPSTICK (test code=NURA) NEGATIVE NEGATIVE UA LEUKOCYTE ESTERASE W REFLEX (test code=LEUUR) NEGATIVE Mihaela/uL NEGATIVE UA WBC (test code=WBCU) 0-5 per HPF 0-5 UA RBC (test code=RBCU) 0-2 #/HPF 0-5 UA EPITHELIAL CELLS (test code=EPIU) MANY per HPF FEW UA BACTERIA (test code=BACU) MODERATE #/HPF NONE UA MUCUS (test code=MUCU) FEW #/LPF FEW Urine Source? Clean CatchURINALYSIS [id number] 19:41:00* Test Item Value Reference Range Comments UA COLOR (test code=COLU) LIGHT YELLOW YELLOW UA APPEARANCE (test code=APPU) Cloudy CLEAR UA GLUCOSE DIPSTICK (test code=DGLUU) NEGATIVE mg/dL NEGATIVE UA BILIRUBIN DIPSTICK (test code=BILU) NEGATIVE mg/dL NEGATIVE UA KETONE DIPSTICK (test code=KETU) NEGATIVE mg/dL NEGATIVE UA SPECIFIC GRAVITY (test code=SGU) 1.027 1.001-1.035 UA BLOOD DIPSTICK (test code=ZABRINA) Negative mg/dL NEGATIVE UA PH DIPSTICK (test code=ROC) 6.0 5.0-8.0 UA PROTEIN DIPSTICK (test code=PROU) 30 (1+) mg/dL NEGATIVE UA UROBILINIOGEN DIPSTICK (test code=URO) NEGATIVE mg/dL NEGATIVE UA NITRITE DIPSTICK (test code=NURA) NEGATIVE NEGATIVE UA LEUKOCYTE ESTERASE W REFLEX (test code=LEUUR) NEGATIVE Mihaela/uL NEGATIVE UA WBC (test code=WBCU) per HPF 0-5 UA RBC (test code=RBCU) per HPF 0-5 UA EPITHELIAL CELLS (test code=EPIU) per HPF Few UA BACTERIA (test code=BACU) per HPF NONE Urine Source? Clean CatchBASIC METABOLIC [id number] 19:22:00* Test Item Value Reference Range Comments SODIUM (test code=NA) 141 mmol/L 136-145 POTASSIUM (test code=K) 3.5 mmol/L 3.5-5.1 CHLORIDE (test code=CL) 110.0 mmol/L 98-107 CARBON DIOXIDE (test code=CO2) 22.0 mmol/L 21-32 ANION GAP (test code=GAP) 12.5 10-20 GLUCOSE (test code=GLU) 98 mg/dL 74-106 BLOOD UREA NITROGEN (test code=BUN) 12 mg/dL 7-18 GLOMERULAR FILTRATION RATE (test code=GFR) > 60 mL/min >=60 Estimated GFR by using Modified MDRD formula.Chronic kidney disease is defined as either kidney damageor GFR <60 mL/min/1.73 m2 for >3 months. CREATININE (test code=CREAT) 0.70 mg/dL 0.55-1.02 Note change in reference range due to change in reagent. BUN/CREATININE RATIO (test code=BUN/CREA) 17.1 10-20 CALCIUM (test code=CA) 8.5 mg/dL 8.5-10.1 HEPATIC FUNCTION [id number] 19:22:00* Test Item Value Reference Range Comments TOTAL PROTEIN (test code=PROT) 7.8 gram/dL 6.4-8.2 ALBUMIN (test code=ALB) 3.9 g/dL 3.4-5.0 GLOBULIN (test code=GLOB) 3.9 gram/dL 2.7-4.2 ALBUMIN/GLOBULIN RATIO (test code=A/G) 1.0 0.75-1.50 BILIRUBIN TOTAL (test code=BILT) 0.20 mg/dL 0.0-1.0 BILIRUBIN DIRECT (test code=BILD) 0.07 mg/dL 0.0-0.20 SGOT/AST (test code=AST) 13 IUnit/L 15-37 SGPT/ALT (test code=ALT) 19 IUnit/L 12-78 ALKALINE PHOSPHATASE TOTAL (test code=ALKP) 86 IUnit/L 45-117 Note change in reference range due to change in reagent. [id number] 19:22:00* Test Item Value Reference Range Comments LIPASE (test code=LIP) 103 U/L 73.0-393.0 HCG SERUM [id number] 19:22:00* Test Item Value Reference Range Comments HCG SERUM QUAL (test code=HCGQL) NEGATIVE NEGATIVE This HCGQL test is NOT applicable for MALE patients.Check with nurse about probable order error.If Tumor Marker Test needed, nurse should order test "HCGTU"(Test #550.75964) BASIC METABOLIC [id number] 19:14:00* Test Item Value Reference Range Comments SODIUM (test code=NA) 141 mmol/L 136-145 POTASSIUM (test code=K) 3.5 mmol/L 3.5-5.1 CHLORIDE (test code=CL) 110.0 mmol/L 98-107 CARBON DIOXIDE (test code=CO2) mmol/L 21-32 ANION GAP (test code=GAP) 10-20 GLUCOSE (test code=GLU) mg/dL 74-106 BLOOD UREA NITROGEN (test code=BUN) mg/dL 7-18 GLOMERULAR FILTRATION RATE (test code=GFR) mL/min >=60 CREATININE (test code=CREAT) mg/dL 0.55-1.02 BUN/CREATININE RATIO (test code=BUN/CREA) 10-20 CALCIUM (test code=CA) mg/dL 8.5-10.1 HEPATIC FUNCTION [id number] 19:14:00* Test Item Value Reference Range Comments TOTAL PROTEIN (test code=PROT) gram/dL 6.4-8.2 ALBUMIN (test code=ALB) g/dL 3.4-5.0 GLOBULIN (test code=GLOB) gram/dL 2.7-4.2 ALBUMIN/GLOBULIN RATIO (test code=A/G) 0.75-1.50 BILIRUBIN TOTAL (test code=BILT) mg/dL 0.0-1.0 BILIRUBIN DIRECT (test code=BILD) mg/dL 0.0-0.20 SGOT/AST (test code=AST) IUnit/L 15-37 SGPT/ALT (test code=ALT) IUnit/L 12-78 ALKALINE PHOSPHATASE TOTAL (test code=ALKP) IUnit/L 45-117 [id number] 19:14:00* Test Item Value Reference Range Comments LIPASE (test code=LIP) U/L 73.0-393.0 HCG SERUM [id number] 19:14:00* Test Item Value Reference Range Comments HCG SERUM QUAL (test code=HCGQL) NEGATIVE NEGATIVE This HCGQL test is NOT applicable for MALE patients.Check with nurse about probable order error.If Tumor Marker Test needed, nurse should order test "HCGTU"(Test #550.91417) BASIC METABOLIC [id number] 19:08:00* Test Item Value Reference Range Comments SODIUM (test code=NA) 141 mmol/L 136-145 POTASSIUM (test code=K) 3.5 mmol/L 3.5-5.1 CHLORIDE (test code=CL) 110.0 mmol/L 98-107 CARBON DIOXIDE (test code=CO2) mmol/L 21-32 ANION GAP (test code=GAP) 10-20 GLUCOSE (test code=GLU) mg/dL 74-106 BLOOD UREA NITROGEN (test code=BUN) mg/dL 7-18 GLOMERULAR FILTRATION RATE (test code=GFR) mL/min >=60 CREATININE (test code=CREAT) mg/dL 0.55-1.02 BUN/CREATININE RATIO (test code=BUN/CREA) 10-20 CALCIUM (test code=CA) mg/dL 8.5-10.1 HEPATIC FUNCTION [id number] 19:08:00* Test Item Value Reference Range Comments TOTAL PROTEIN (test code=PROT) gram/dL 6.4-8.2 ALBUMIN (test code=ALB) g/dL 3.4-5.0 GLOBULIN (test code=GLOB) gram/dL 2.7-4.2 ALBUMIN/GLOBULIN RATIO (test code=A/G) 0.75-1.50 BILIRUBIN TOTAL (test code=BILT) mg/dL 0.0-1.0 BILIRUBIN DIRECT (test code=BILD) mg/dL 0.0-0.20 SGOT/AST (test code=AST) IUnit/L 15-37 SGPT/ALT (test code=ALT) IUnit/L 12-78 ALKALINE PHOSPHATASE TOTAL (test code=ALKP) IUnit/L 45-117 [id number] 19:08:00* Test Item Value Reference Range Comments LIPASE (test code=LIP) U/L 73.0-393.0 HCG SERUM [id number] 19:08:00* Test Item Value Reference Range Comments HCG SERUM QUAL (test code=HCGQL) NEGATIVE CBC W/O [id number] 19:00:00* Test Item Value Reference Range Comments WHITE BLOOD CELL (test code=WBC) 13.2 K/mm3 4.5-12.5 RED BLOOD CELL (test code=RBC) 3.92 mill/mm3 3.7-5.2 HEMOGLOBIN (test code=HGB) 10.4 gram/dL 11.5-15.5 HEMATOCRIT (test code=HCT) 34.4 % 36.0-46.0 MEAN CELL VOLUME (test code=MCV) 87.8 fL 80-98 MEAN CELL HGB (test code=MCH) 26.5 picogram 27.0-33.0 MEAN CELL HGB CONCETRATION (test code=MCHC) 30.2 gram/dL 33.0-36.0 RED CELL DISTRIBUTION WIDTH (test code=RDW) 18.7 % 11.6-16.2 PLATELET COUNT (test code=PLT) 368 K/mm3 150-450 MEAN PLATELET VOLUME (test code=MPV) 10.3 fL 6.7-11.0 COMPREHENSIVE METABOLIC [id number] 06:12:00* Test Item Value Reference Range Comments SODIUM (test code=NA) 136 mEq/L 135-145 POTASSIUM (test code=K) 3.5 mEq/L 3.5-5.0 CHLORIDE (test code=CL) 98 mEq/L 100-115 CARBON DIOXIDE (test code=CO2) 28 mEq/L 22-31 ANION GAP (test code=GAP) 13.60 10-20 GLUCOSE (test code=GLU) 109 mg/dL 65-110 BLOOD UREA NITROGEN (test code=BUN) 8 mg/dL 7-18 GLOMERULAR FILTRATION RATE (test code=GFR) 118 ml/min >60 CREATININE (test code=CREAT) 0.6 mg/dL 0.5-1.0 TOTAL PROTEIN (test code=PROT) 8.1 gm/dL 6.3-8.2 ALBUMIN (test code=ALB) 4.0 gm/dL 3.4-4.8 CALCIUM (test code=CA) 10.0 mg/dL 8.4-10.2 BILIRUBIN TOTAL (test code=BILT) 0.5 mg/dL 0.2-1.0 SGOT/AST (test code=AST) 23 units/L 15-37 SGPT/ALT (test code=ALT) 53 units/L 12-78 ALKALINE PHOSPHATASE TOTAL (test code=ALKP) 107 units/L 46-116 - XR UGI [id number] 13:52:00 Patient Name: HOLLEY GAYLE Unit No: [id number] EXAMS: CPT CODE: [id number] XR UGI W/KUB 42142 CLINICAL HISTORY: Abdominal pain, nausea. COMPARISON: Computed tomography performed on May 22, 2018. Preliminary escrow officer film of the abdomen demonstrates a nasogastric tube with its tip in stomach. Sidehole of the nasogastric tube is in distal esophagus. Contrast material was administered via nasogastric tube. Stomach appears normal in size shape and position. No evidence of gastric outlet obstruction is seen. Duodenal bulb as well as visualized portions of the duodenum appear normal. Esophagus was not evaluated because of presence of nasogastric tube and patient's nausea. IMPRESSION: 1. Sidehole of the nasogastric tube in distal esophagus. 2. No evidence of gastric outlet obstruction or duodenal abnormality. at 1398 Reported and signed by: Daniel Crooks MD CC: Venus Asencio DO Technologist: RT Albert Trnscrbd D/ (8262) tRICHARD Orig Print D/T: S: 05/23/2018 (8320) [facility] NAME: HOLLEY GAYLE Radiology Department PHYS: GLORIAWojciech Hussein RodriguezDeon solorzano [address] : 1990 AGE: 27 SEX: F [place], [place] [address] LOC: F.2618 A PHONE #: [phone] EXAM DATE: 05/23/2018 STATUS: ADM IN FAX #: [phone] RAD NO: Page 1 Signed Report - CT ABD PELVIS [id number] 11:55:00 Patient Name: HOLLEY GAYLE Unit No: [id number] EXAMS: CPT CODE: [id number] CT ABD PELVIS W/CONT [address]47[address] CT ABDOMEN WITH CONTRAST AND CT PELVIS WITHOUT CONTRAST, 05/22/2018 TECHNICAL FACTORS: Contiguous axial sections were obtained through the abdomen and pelvis after IV contrast administration only. Patient could not tolerate oral contrast. COMPARISON: CT abdomen dated May 02, 2018 CLINICAL HISTORY: post op abdominal pain One or more of the following dose techniques were utilized; automated exposure control, adjustment of the mA and/or kV according to patient size, and/or utilization of iterative reconstruction technique. DLP: 788.86 mGy-cm. Lung bases were clear. NG tube noted with tiny hiatal hernia. The liver demonstrates mild hepatic steatosis. No focal hepatic lesions are seen. The spleen, pancreas, and adrenals are within normal limits. Gallbladder is surgically absent. Kidneys demonstrate no hydronephrosis, renal masses or opaque renal calculi. The abdominal aorta is normal in caliber. Assessment of bowel loops is limited without GI contrast. No right lower quadrant inflammatory process is seen. There are a few surgical clips/sutures in the right lower quadrant. Uterus is surgically absent. Small amount of free fluid is present in the dependent portion of the pelvis. There are a few small air bubbles in the anterior peritoneal region just above the level of the umbilicus as well as in the subcutaneous tissues of the umbilical region. Findings are as likely secondary to recent abdominal surgery. [facility] NAME: NEVIN GAYLEAKUA GR Radiology Department PHYS: [email or web address].14 - Kareem Joyce MD [address] : 1990 AGE: 27 SEX: F [place], [place] [address] LOC: RADHA PHONE #: [phone] EXAM DATE: 05/22/2018 STATUS: REG ER FAX #: [phone] RAD NO: Page 1 Signed Report 1 Patient Name: HOLLEY GAYLE Unit No: [id number] EXAMS: CPT CODE: [id number] CT ABD PELVIS W/CONT 13922 <Continued> IMPRESSION: Small amount of free pelvic fluid. Mild hepatic steatosis. Probable postoperative changes as noted above. at 1155 Reported and signed by: Douglas Mosher MD CC: Kareem Joyce MD; Venus Asencio DO Technologist: Kim Shine, RT CTDI: 15.54 DLP: 788.86 Trnscrbd D/ (1155) t.SDR.AJ13 [facility] NAME: HOLLEY GAYLE Radiology Department PHYS: CATHERINESmithKareem Marcus MD [address] : 1990 AGE: 27 SEX: F [place] [address] LOC: CarlosERS PHONE #: [phone] EXAM DATE: 05/22/2018 STATUS: REG ER FAX #: [phone] RAD NO: Page 2 Signed Report 1 Patient Name: HOLLEY GAYLE Unit No: [id number] EXAMS: CPT CODE: [id number] CT ABD PELVIS W/CONT 88978 <Continued> Orig Print D/T: S: 05/22/2018 (1158) [facility] NAME: HOLLEY GAYLE Radiology Department PHYS: CATHERINESmithJoel Keenan Kareem Joyce MD [address] : 1990 AGE: 27 SEX: F [place] [address] LOC: CarlosERS PHONE #: [phone] EXAM DATE: 05/22/2018 STATUS: REG ER FAX #: [phone] RAD NO: Page 3 Si gned Report 1 ACUTE HEPATITIS [id number] 11:26:00* Test Item Value Reference Range Comments AB HEPATITIS A IGM (test code=HAVMAB) NONREACTIVE NONREACTIVE AG HEPATITIS B SURFACE (test code=HBSAG) NONREACTIVE NONREACTIVE AB HEPATITIS B CORE IGM (test code=HBCMAB) NONREACTIVE NONREACTIVE AB HEPATITIS C (test code=HCVAB) NONREACTIVE NONREACTIVE SIGNAL TO CUTOFF (test code=CUTOFF) 0.05 <0.80 ACUTE HEPATITIS [id number] 11:21:00* Test Item Value Reference Range Comments AB HEPATITIS A IGM (test code=HAVMAB) NONREACTIVE AG HEPATITIS B SURFACE (test code=HBSAG) NONREACTIVE NONREACTIVE AB HEPATITIS B CORE IGM (test code=HBCMAB) NONREACTIVE NONREACTIVE AB HEPATITIS C (test code=HCVAB) NONREACTIVE NONREACTIVE SIGNAL TO CUTOFF (test code=CUTOFF) 0.05 <0.80 DRUGS OF ABUSE [id number] 11:10:00* Test Item Value Reference Range Comments UR COCAINE (test code=COCAU) NEGATIVE NEGATIVE DETECTION CUT OFF: 150 ng/mL UR CANNABINOIDS (test code=CANU) POSITIVE NEGATIVE RESULTS CALLED TO GUANACO KRIS BACK & CONFIRMED? [facility].LAB.KG 05/22/18 1106. DETECTION CUT OFF: 50 ng/mL UR AMPHETAMINE (test code=AMPHU) NEGATIVE NEGATIVE DETECTION CUT OFF: 500 ng/mL UR BARBITURATE QUAL (test code=BARBQLU) NEGATIVE NEGATIVE DETECTION CUT OFF: 200 ng/mL UR BENZODIAZEPINE (test code=BENZU) POSITIVE NEGATIVE RESULTS CALLED TO GUANACO [facility] BACK & CONFIRMED? Contents First.LAB.KG 05/22/18 1106. DETECTION CUT OFF: 150 ng/mL UR OPIATES QUAL (test code=OPIAQLU) NEGATIVE NEGATIVE DETECTION CUT OFF: 100 ng/mL UR PHENCYCLIDINE (PCP) (test code=PHENCU) NEGATIVE NEGATIVE DETECTION CUT OFF: 25 ng/mL ACUTE HEPATITIS [id number] 10:58:00* Test Item Value Reference Range Comments AB HEPATITIS A IGM (test code=HAVMAB) NONREACTIVE AG HEPATITIS B SURFACE (test code=HBSAG) NONREACTIVE NONREACTIVE AB HEPATITIS B CORE IGM (test code=HBCMAB) NONREACTIVE AB HEPATITIS C (test code=HCVAB) NONREACTIVE SIGNAL TO CUTOFF (test code=CUTOFF) <0.80 UA RFLX MICR CULT IF [id number] 10:55:00* Test Item Value Reference Range Comments UA COLOR (test code=COLU) YELLOW YELLOW UA APPEARANCE (test code=APPU) CLOUDY CLEAR UA GLUCOSE DIPSTICK (test code=DGLUU) NEGATIVE NEG UA BILIRUBIN DIPSTICK (test code=BILU) NEGATIVE NEG UA KETONE DIPSTICK (test code=KETU) NEGATIVE NEG UA SPECIFIC GRAVITY (test code=SGU) 1.017 1.001-1.035 UA BLOOD DIPSTICK (test code=ZABRINA) NEG NEG UA PH DIPSTICK (test code=ROC) 8.0 5-9 UA PROTEIN DIPSTICK (test code=PROU) 1+ NEG UA UROBILINIOGEN DIPSTICK (test code=URO) 1.0 mg/dL NEG UA NITRITE DIPSTICK (test code=NURA) NEG NEG UA LEUKOCYTE ESTERASE DIPSTICK (test code=LEUU) NEG NEG UA WBC (test code=WBCU) 3-5 #/hpf NONE SEEN UA RBC (test code=RBCU) 0-2 #/hpf NONE SEEN UA EPITHELIAL CELLS (test code=EPIU) TOO NUMEROUS TO CNT #/HPF RARE-FEW UA BACTERIA (test code=BACU) FEW /HPF RARE-FEW UA MUCUS (test code=MUCU) RARE NONE SEEN [id number] 10:43:00* Test Item Value Reference Range Comments ALCOHOL (test code=ALC) <2.99 mg/dL < 3 THIS RESULT IS FOR MEDICAL PURPOSES ONLY The pharmacological response to blood alcohol levels mayvary from individual to individual. Signs of intoxicationcan be observed at levels of 50-100 mg/dL COMPREHENSIVE METABOLIC [id number] 10:36:00* Test Item Value Reference Range Comments SODIUM (test code=NA) 136 mEq/L 135-145 POTASSIUM (test code=K) 5.4 mEq/L 3.5-5.0 CHLORIDE (test code=CL) 102 mEq/L 100-115 CARBON DIOXIDE (test code=CO2) 27 mEq/L 22-31 ANION GAP (test code=GAP) 12.00 10-20 GLUCOSE (test code=GLU) 95 mg/dL 65-110 BLOOD UREA NITROGEN (test code=BUN) 12 mg/dL 7-18 GLOMERULAR FILTRATION RATE (test code=GFR) 99 ml/min >60 CREATININE (test code=CREAT) 0.7 mg/dL 0.5-1.0 TOTAL PROTEIN (test code=PROT) 8.2 gm/dL 6.3-8.2 ALBUMIN (test code=ALB) 3.6 gm/dL 3.4-4.8 CALCIUM (test code=CA) 9.2 mg/dL 8.4-10.2 BILIRUBIN TOTAL (test code=BILT) 0.5 mg/dL 0.2-1.0 SGOT/AST (test code=AST) 52 units/L 15-37 SGPT/ALT (test code=ALT) 69 units/L 12-78 ALKALINE PHOSPHATASE TOTAL (test code=ALKP) 99 units/L 46-116 [id number] 10:36:00* Test Item Value Reference Range Comments AMYLASE (test code=JACQUELIN) 39 units/L 30-110 [id number] 10:36:00* Test Item Value Reference Range Comments LIPASE (test code=LIP) 84 units/L 73-393 CBC W/AUTO [id number] 10:16:00* Test Item Value Reference Range Comments WHITE BLOOD CELL (test code=WBC) 11.4 K/mm3 6.6-12.1 RED BLOOD CELL (test code=RBC) 4.16 M/mm3 3.45-5.01 HEMOGLOBIN (test code=HGB) 11.5 g/dL 10.7-13.9 HEMATOCRIT (test code=HCT) 37.0 % 32.1-42.1 MEAN CELL VOLUME (test code=MCV) 89 fL 84.1-94.8 MEAN CELL HGB (test code=MCH) 27.6 pg 27-35 MEAN CELL HGB CONCETRATION (test code=MCHC) 31.1 gm/dL 32.2-34.1 RED CELL DISTRIBUTION WIDTH (test code=RDW) 17.6 % 12.4-16.5 PLATELET COUNT (test code=PLT) 398 K/mm3 133-385 IMMATURE PLATELET FRACTION (test code=IPF) 0.0 % 0.0-10.8 MEAN PLATELET VOLUME (test code=MPV) 11.3 fl 9.1-12.7 NEUTROPHIL % (test code=NT%) 76.9 % 56.5-79.4 LYMPHOCYTE % (test code=LY%) 14.5 % 14.3-34.3 MONOCYTE % (test code=MO%) 3.7 % 5.1-10.4 EOSINOPHIL % (test code=EO%) 4.3 % 0.1-3.0 BASOPHIL % (test code=BA%) 0.4 % 0.1-1.0 NEUTROPHIL # (test code=NT#) 8.8 K/mm3 LYMPHOCYTE # (test code=LY#) 1.7 K/mm3 MONOCYTE # (test code=MO#) 0.4 K/mm3 EOSINOPHIL # (test code=EO#) 0.49 K/mm3 BASOPHIL # (test code=BA#) 0.1 K/mm3 RBC MORPHOLOGY REQUIRED (test code=RBCM) NORMAL NORMAL PLATELET MORPHOLOGY REQUIRED (test code=PLTMR) NORMAL NORMAL [id number] 09:43:00* Test Item Value Reference Range Comments GLUBED (test code=GLUBED) 93 mg/dL 65-110 APPENDIX,NOT [id number] 14:11:00 RUN DATE: 05/23/18 [facility] PAGE 1 RUN TIME: 1807 Specimen Inqui ry RUN USER: INTERFACE PATIENT: HOLLEY GAYLE ACCT #: [id number] LOC: ALEXY U #: [id number] AGE/SX: 27/F ROOM: [facility] RE05/18/18REG DR: Deon Rodriguez : 88 BED: A DIS: 05/19/18 STATUS: DIS IN TLOC: SPEC #: [id number] RECD: 05/18/18 STATUS: JILL LUNDY #: [id number] YASHIRA: 05/18/18- SUBM DR: Deon Rodriguez MD ENTERED: 05/18/18 SP TYPE: APPIII OTHR DR: Eder hinds,Venus Mcnair MD DOORDERED: LEVEL III SURGI CODES: [id number] - APPENDIX, NOS COPIES TO: Ede Lemons MD [address] [facility] [address] [place] [address] [phone] Deon Rodriguez MD [address] [facility] [address] [place] [address] [phone] [email or web address] Venus Asencio DO [address] [facility] [address] [place] [address] PROCEDURES: LEVEL III SURG I (Incomplete) TISSUES: APPENDIX, NOS - APPENDIX CLINICAL HIST ORY 27 year old, abdominal pain (wpd) FINAL DIAGNOSIS Appendix, a ppendectomy: - serosal congestion and a few adhesions Tissue code 1 CPT code(s): 42791 cds/kr dt: 05/20/18 CONTINUED ON NEXT PAGE RUN DATE: 05/23/18 [facility] PAGE 2 RUN TIME: 1807 Specimen Inquiry RUN USER: INTERFACE SPEC #: [id number] PATIENT: NALINIHOLLEY LEE #[id number] (Continued)-------- ---- GROSS DESCRIPTION ANATOMIC SOURCE OF TISSUE (per Requisition): Appendix The specimen is received in a formalin-filled container, labeled with the patient's name and designated "appendix". The specimen consists of a 5.5 cm in length and 0.7 cm in diameter appendix with attached mesoappendiceal adipose tissue. The serosa is pink-purple and hyperemic. The lumen is sli ghtly dilated. The mucosa is arzola-pink and focally hemorrhagic. There is no t ransmural defect. The appendix is submitted in its entirety in one cassette. raissa/hortensia 05/18/18 @ 1920 MICROSCOPIC DESCRIPTION No inflammation is ident ified. Serosal congestion and adhesions are noted. venkat/marie dt: 05/20/18------ ------ Signed Elpidio Abebe 1411 END OF REPORT UR HCG [id number] 09:50:00* Test Item Value Reference Range Comments UR HCG QUAL (test code=HCGQLU) NEGATIVE 1. Very dilute urine specimens, as indicated by a lowspecific gravity, may not contain employer relations representative levels ofhCG. 2. False negative results may occur when the levels of hCGare below the sensitivity level of the test. If is still suspected, a first morningurine specimen should be collected 48 hours later andtested. COMPREHENSIVE METABOLIC [id number] 05:29:00* Test Item Value Reference Range Comments SODIUM (test code=NA) 138 mEq/L 135-145 POTASSIUM (test code=K) 3.8 mEq/L 3.5-5.0 CHLORIDE (test code=CL) 103 mEq/L 100-115 CARBON DIOXIDE (test code=CO2) 32 mEq/L 22-31 ANION GAP (test code=GAP) 6.80 10-20 GLUCOSE (test code=GLU) 72 mg/dL 65-110 BLOOD UREA NITROGEN (test code=BUN) 5 mg/dL 7-18 GLOMERULAR FILTRATION RATE (test code=GFR) 118 ml/min >60 CREATININE (test code=CREAT) 0.6 mg/dL 0.5-1.0 TOTAL PROTEIN (test code=PROT) 6.6 gm/dL 6.3-8.2 ALBUMIN (test code=ALB) 3.0 gm/dL 3.4-4.8 CALCIUM (test code=CA) 8.6 mg/dL 8.4-10.2 BILIRUBIN TOTAL (test code=BILT) 0.6 mg/dL 0.2-1.0 SGOT/AST (test code=AST) 97 units/L 15-37 SGPT/ALT (test code=ALT) 209 units/L 12-78 ALKALINE PHOSPHATASE TOTAL (test code=ALKP) 128 units/L 46-116 [id number] 05:29:00* Test Item Value Reference Range Comments AMYLASE (test code=JACQUELIN) 35 units/L 30-110 [id number] 05:29:00* Test Item Value Reference Range Comments LIPASE (test code=LIP) 50 units/L 73-393 - XR CHEST 1 [id number] 21:33:00 Patient Name: HOLLEY GAYLE Unit No: [id number] EXAMS: CPT CODE: [id number] XR CHEST 1 V 98187 CHEST, ONE VIEW: HISTORY: Acute shortness of breath with coughing and wheezing. COMPARISON EXAM(S): April 08, 2018 FINDINGS: This single portable view was obtained at 2048 hours on 05/17/2018 and shows the cardiac silhouette to be normal and the lungs clear. No pleural fluid or evidence of pneumothorax. The skeletal structures are unremarkable. IMPRESSION: 1. Negative examination of the chest. SL:01 at 2133 Reported and signed by: Jason Simmons MD CC: Ede Baig MD; Venus Asencio DO Technologist: RT Maegan Trnscrbd D/ (2132) MojganAJJ Orig Print D/T: S: 05/17/2018 (2136) [facility] NAME: NEVIN GAYLENA MAILE Radiology Department PHYS: Ede Marte MD [address] : 1990 AGE: 27 SEX: F [place], [place] [address] LOC: F.2624 A PHONE #: [phone] EXAM DATE: 05/17/2018 STATUS: ADM IN FAX #: [phone] RAD NO: Page 1 Signed Report - US ABDOMEN [id number] 09:29:00 Patient Name: HOLLEY GAYLE Unit No: [id number] EXAMS: CPT CODE: [id number] US ABDOMEN LTD 70170 US of the right upper quadrant performed May 17, 2018 0915 hours . CLINICAL HISTORY: Pancreatitis . COMPARISON: None . DISCUSSION: Real time roberto scale sonography was performed of the right upper quadrant. The liver is normal in echogenicity. It is upper normal limits in size measuring 17 cm.. The gallbladder is surgically absent. The common bile duct is normal in caliber measuring 4 mm. No focal ductal stone or dilatation is noted. The body and proximal tail of the pancreas are sonographically normal in appearance. The remainder is poorly seen due to overlying bowel gas. The right kidney is sonographically normal in appearance. It measures 9.7 cm in length and there is no sonographic evidence of hydronephrosis, mass or calculi. The visualized portions of the aorta and IVC are within normal limits. IMPRESSION: 1. Status post cholecystectomy. 2. Liver measures 17 cm in length. 3. Common bile duct is normal in caliber measuring 4 mm. No sonographic abnormality of the pancreas noted at 0929 Reported and signed by: Smita Jara MD CC: Micah Samuels MD; Venus Asencio DO Technologist: Mariela Chilel RDMS Probe: Trnscrbd D/ (928) Xavier Orig Print D/T: S: 05/17/2018 (0932) [facility] NAME: HOLLEY GAYLE Radiology Department PHYS: Micah Aj [address] : 1990 AGE: 27 SEX: F [place] [address] LOC: CarlosERS PHONE #: [phone] EXAM DATE: 05/17/2018 STATUS: REG ER FAX #: [phone] RAD NO: Page 1 Signed Report Patient Name: HOLLEY GAYLE Unit No: [id number] EXAMS: CPT CODE: [id number] ABDOMEN LTD 67279 <Continued> [facility] NAME: HOLLEY GAYLE Radiology Department PHYS: Micah Aj [address] : 1990 AGE: 27 SEX: F [place] [address] ACCT NO: [id number] LOC: CarlosERS PHONE #: [phone] EXAM DATE: 04/29 STATUS: REG ER FAX #: [phone] RAD NO: P age 1 Signed Report COMPREHENSIVE METABOLIC [id number] 08:53:00* Test Item Value Reference Range Comments SODIUM (test code=NA) 137 mEq/L 135-145 POTASSIUM (test code=K) 3.7 mEq/L 3.5-5.0 CHLORIDE (test code=CL) 102 mEq/L 100-115 CARBON DIOXIDE (test code=CO2) 29 mEq/L 22-31 ANION GAP (test code=GAP) 9.90 10-20 GLUCOSE (test code=GLU) 93 mg/dL 65-110 BLOOD UREA NITROGEN (test code=BUN) 10 mg/dL 7-18 GLOMERULAR FILTRATION RATE (test code=GFR) 99 ml/min >60 CREATININE (test code=CREAT) 0.7 mg/dL 0.5-1.0 TOTAL PROTEIN (test code=PROT) 7.8 gm/dL 6.3-8.2 ALBUMIN (test code=ALB) 3.7 gm/dL 3.4-4.8 CALCIUM (test code=CA) 9.1 mg/dL 8.4-10.2 BILIRUBIN TOTAL (test code=BILT) 0.5 mg/dL 0.2-1.0 SGOT/AST (test code=AST) 22 units/L 15-37 SGPT/ALT (test code=ALT) 49 units/L 12-78 ALKALINE PHOSPHATASE TOTAL (test code=ALKP) 104 units/L 46-116 LIPID PROFILE (CORONARY RISK)2018-05-17 08:53:00* Test Item Value Reference Range Comments TRIGLYCERIDES (test code=TRIG) 49 mg/dL Normal < 150 Borderline high 150 - 199 High 200 - 499 Very High > 500 CHOLESTEROL (test code=CHOL) 236 mg/dL 120-200 HDL CHOLESTEROL (test code=HDL) 83 mg/dL HDL <40=Low HDL Cholesterolhdl >60=High HDL CholesterolSource: NCEP-ATPIII LIPOPROTEIN LDL (test code=LDL) 144 mg/dL <130 (DESIRABLE) 130-159 (BORDERLINE) >=160 (HIGH) [id number] 08:53:00* Test Item Value Reference Range Comments AMYLASE (test code=JACQUELIN) 158 units/L 30-110 [id number] 08:53:00* Test Item Value Reference Range Comments LIPASE (test code=LIP) 1009 units/L 73-393 COMPREHENSIVE METABOLIC [id number] 08:00:00* Test Item Value Reference Range Comments SODIUM (test code=NA) 137 mEq/L 135-145 POTASSIUM (test code=K) 3.7 mEq/L 3.5-5.0 CHLORIDE (test code=CL) 102 mEq/L 100-115 CARBON DIOXIDE (test code=CO2) 29 mEq/L 22-31 ANION GAP (test code=GAP) 9.90 10-20 GLUCOSE (test code=GLU) 93 mg/dL 65-110 BLOOD UREA NITROGEN (test code=BUN) 10 mg/dL 7-18 GLOMERULAR FILTRATION RATE (test code=GFR) 99 ml/min >60 CREATININE (test code=CREAT) 0.7 mg/dL 0.5-1.0 TOTAL PROTEIN (test code=PROT) 7.8 gm/dL 6.3-8.2 ALBUMIN (test code=ALB) 3.7 gm/dL 3.4-4.8 CALCIUM (test code=CA) 9.1 mg/dL 8.4-10.2 BILIRUBIN TOTAL (test code=BILT) 0.5 mg/dL 0.2-1.0 SGOT/AST (test code=AST) 22 units/L 15-37 SGPT/ALT (test code=ALT) 49 units/L 12-78 ALKALINE PHOSPHATASE TOTAL (test code=ALKP) 104 units/L 46-116 [id number] 08:00:00* Test Item Value Reference Range Comments LIPASE (test code=LIP) 1009 units/L 73-393 DRUGS OF ABUSE [id number] 07:48:00* Test Item Value Reference Range Comments UR COCAINE (test code=COCAU) NEGATIVE NEGATIVE DETECTION CUT OFF: 150 ng/mL UR CANNABINOIDS (test code=CANU) POSITIVE NEGATIVE RESULTS CALLED TO RASTA BILLINGSREAD BACK & CONFIRMED? Y.BY ALIZEJacinta 05/17/18745. DETECTION CUT OFF: 50 ng/mL UR AMPHETAMINE (test code=AMPHU) NEGATIVE NEGATIVE DETECTION CUT OFF: 500 ng/mL UR BARBITURATE QUAL (test code=BARBQLU) NEGATIVE NEGATIVE DETECTION CUT OFF: 200 ng/mL UR BENZODIAZEPINE (test code=BENZU) POSITIVE NEGATIVE RESULTS CALLED TO RASTA BILLINGSREAD BACK & CONFIRMED? Y.BY ALIZEJacinta 05/17/18747. DETECTION CUT OFF: 150 ng/mLPreviously reported result: NEGATIVE Edited by: GONSALO on 05/17/18:0748BENZU prev. reported as:NEGATIVE . . UR OPIATES QUAL (test code=OPIAQLU) NEGATIVE NEGATIVE DETECTION CUT OFF: 100 ng/mL UR PHENCYCLIDINE (PCP) (test code=PHENCU) NEGATIVE NEGATIVE DETECTION CUT OFF: 25 ng/mL DRUGS OF ABUSE [id number] 07:46:00* Test Item Value Reference Range Comments UR COCAINE (test code=COCAU) NEGATIVE NEGATIVE DETECTION CUT OFF: 150 ng/mL UR CANNABINOIDS (test code=CANU) POSITIVE NEGATIVE RESULTS CALLED TO RASTA G.RN.READ BACK & CONFIRMED? Y.BY GONSALO 05/17/18 0746. DETECTION CUT OFF: 50 ng/mL UR AMPHETAMINE (test code=AMPHU) NEGATIVE NEGATIVE DETECTION CUT OFF: 500 ng/mL UR BARBITURATE QUAL (test code=BARBQLU) NEGATIVE NEGATIVE DETECTION CUT OFF: 200 ng/mL UR BENZODIAZEPINE (test code=BENZU) NEGATIVE NEGATIVE DETECTION CUT OFF: 150 ng/mL UR OPIATES QUAL (test code=OPIAQLU) NEGATIVE NEGATIVE DETECTION CUT OFF: 100 ng/mL UR PHENCYCLIDINE (PCP) (test code=PHENCU) NEGATIVE NEGATIVE DETECTION CUT OFF: 25 ng/mL UA RFLX MICR CULT IF [id number] 07:42:00* Test Item Value Reference Range Comments UA COLOR (test code=COLU) YELLOW YELLOW UA APPEARANCE (test code=APPU) CLOUDY CLEAR UA GLUCOSE DIPSTICK (test code=DGLUU) NEGATIVE NEG UA BILIRUBIN DIPSTICK (test code=BILU) NEGATIVE NEG UA KETONE DIPSTICK (test code=KETU) NEGATIVE NEG UA SPECIFIC GRAVITY (test code=SGU) 1.016 1.001-1.035 UA BLOOD DIPSTICK (test code=ZABRINA) NEG NEG UA PH DIPSTICK (test code=ROC) 7.0 5-9 UA PROTEIN DIPSTICK (test code=PROU) NEGATIVE NEG UA UROBILINIOGEN DIPSTICK (test code=URO) 1.0 mg/dL NEG UA NITRITE DIPSTICK (test code=NURA) NEG NEG UA LEUKOCYTE ESTERASE DIPSTICK (test code=LEUU) NEG NEG UA WBC (test code=WBCU) 0-2 #/hpf NONE SEEN UA RBC (test code=RBCU) 0-2 #/hpf NONE SEEN UA EPITHELIAL CELLS (test code=EPIU) MODERATE #/HPF RARE-FEW UA BACTERIA (test code=BACU) RARE /HPF RARE-FEW UA MUCUS (test code=MUCU) RARE NONE SEEN CBC W/AUTO [id number] 07:34:00* Test Item Value Reference Range Comments WHITE BLOOD CELL (test code=WBC) 10.4 K/mm3 6.6-12.1 RED BLOOD CELL (test code=RBC) 4.14 M/mm3 3.45-5.01 HEMOGLOBIN (test code=HGB) 11.2 g/dL 10.7-13.9 HEMATOCRIT (test code=HCT) 36.8 % 32.1-42.1 MEAN CELL VOLUME (test code=MCV) 89 fL 84.1-94.8 MEAN CELL HGB (test code=MCH) 27.1 pg 27-35 MEAN CELL HGB CONCETRATION (test code=MCHC) 30.4 gm/dL 32.2-34.1 RED CELL DISTRIBUTION WIDTH (test code=RDW) 16.9 % 12.4-16.5 PLATELET COUNT (test code=PLT) 403 K/mm3 133-385 IMMATURE PLATELET FRACTION (test code=IPF) 0.0 % 0.0-10.8 MEAN PLATELET VOLUME (test code=MPV) 10.7 fl 9.1-12.7 NEUTROPHIL % (test code=NT%) 71.9 % 56.5-79.4 LYMPHOCYTE % (test code=LY%) 20.0 % 14.3-34.3 MONOCYTE % (test code=MO%) 4.9 % 5.1-10.4 EOSINOPHIL % (test code=EO%) 2.4 % 0.1-3.0 BASOPHIL % (test code=BA%) 0.4 % 0.1-1.0 NEUTROPHIL # (test code=NT#) 7.5 K/mm3 LYMPHOCYTE # (test code=LY#) 2.1 K/mm3 MONOCYTE # (test code=MO#) 0.5 K/mm3 EOSINOPHIL # (test code=EO#) 0.25 K/mm3 BASOPHIL # (test code=BA#) 0.0 K/mm3 RBC MORPHOLOGY REQUIRED (test code=RBCM) NORMAL NORMAL PLATELET MORPHOLOGY REQUIRED (test code=PLTMR) NORMAL NORMAL URINALYSIS [id number] 09:33:00* Test Item Value Reference Range Comments UA COLOR (test code=COLU) YELLOW YEL/STRAW UA APPEARANCE (test code=APPU) CLEAR CLEAR UA GLUCOSE DIPSTICK (test code=DGLUU) NEGATIVE NEGATIVE UA BILIRUBIN DIPSTICK (test code=BILU) NEGATIVE NEGATIVE UA KETONE DIPSTICK (test code=KETU) NEGATIVE NEGATIVE UA SPECIFIC GRAVITY (test code=SGU) 1.014 1.005-1.030 UA BLOOD DIPSTICK (test code=ZABRINA) NEGATIVE NEGATIVE UA PH DIPSTICK (test code=ROC) 6.0 5.0-7.0 UA PROTEIN DIPSTICK (test code=PROU) NEGATIVE NEGATIVE UA UROBILINIOGEN DIPSTICK (test code=URO) 2.0 mg/dL 0.2-1.0 UA NITRITE DIPSTICK (test code=NURA) NEGATIVE NEGATIVE UA LEUKOCYTE ESTERASE DIPSTICK (test code=LEUU) NEGATIVE NEGATIVE UA WBC (test code=WBCU) 0-3 WBC/HPF 0-3 UA RBC (test code=RBCU) 0-3 RBC/HPF 0-3 UA BACTERIA (test code=BACU) TRACE /HPF NONE SEEN UA SQUAMOUS CELLS (test code=SQU) 0-5 /HPF NONE SEEN UA MUCUS (test code=MUCU) TRACE /LPF NONE SEEN UR HCG [id number] 09:23:00* Test Item Value Reference Range Comments UR HCG QUAL (test code=HCGQLU) NEGATIVE NEGATIVE COMPREHENSIVE METABOLIC [id number] 10:14:00* Test Item Value Reference Range Comments SODIUM (test code=NA) 138 mEq/L 134-147 POTASSIUM (test code=K) 4.0 mEq/L 3.4-5.0 CHLORIDE (test code=CL) 107 mEq/L 100-108 CARBON DIOXIDE (test code=CO2) 27 mEq/L 21-33 ANION GAP (test code=GAP) 8 0-20 GLUCOSE (test code=GLU) 94 mg/dL 70-110 BLOOD UREA NITROGEN (test code=BUN) 11 mg/dL 7-18 GLOMERULAR FILTRATION RATE (test code=GFR) 145.9 110-120 Units of measure=ml/min/1.73 m2 CREATININE (test code=CREAT) 0.5 mg/dL 0.6-1.3 TOTAL PROTEIN (test code=PROT) 8.0 g/dL 6.4-8.2 ALBUMIN (test code=ALB) 3.80 g/dL 3.4-5.0 CALCIUM (test code=CA) 8.9 mg/dL 8.0-10.5 BILIRUBIN TOTAL (test code=BILT) 0.30 mg/dL 0.0-1.0 SGOT/AST (test code=AST) 24 IUnit/L 15-37 SGPT/ALT (test code=ALT) 22 IUnit/L 15-65 ALKALINE PHOSPHATASE TOTAL (test code=ALKP) 97 IUnit/L 20-125 [id number] 10:14:00* Test Item Value Reference Range Comments LIPASE (test code=LIP) 214 IUnit/L 73-393 COMPREHENSIVE METABOLIC [id number] 10:11:00* Test Item Value Reference Range Comments SODIUM (test code=NA) 138 mEq/L 134-147 POTASSIUM (test code=K) 4.0 mEq/L 3.4-5.0 CHLORIDE (test code=CL) 107 mEq/L 100-108 CARBON DIOXIDE (test code=CO2) 27 mEq/L 21-33 ANION GAP (test code=GAP) 8 0-20 GLUCOSE (test code=GLU) 94 mg/dL 70-110 BLOOD UREA NITROGEN (test code=BUN) 11 mg/dL 7-18 GLOMERULAR FILTRATION RATE (test code=GFR) 145.9 110-120 Units of measure=ml/min/1.73 m2 CREATININE (test code=CREAT) 0.5 mg/dL 0.6-1.3 TOTAL PROTEIN (test code=PROT) g/dL 6.4-8.2 ALBUMIN (test code=ALB) 3.80 g/dL 3.4-5.0 CALCIUM (test code=CA) 8.9 mg/dL 8.0-10.5 BILIRUBIN TOTAL (test code=BILT) mg/dL 0.0-1.0 SGOT/AST (test code=AST) 24 IUnit/L 15-37 SGPT/ALT (test code=ALT) 22 IUnit/L 15-65 ALKALINE PHOSPHATASE TOTAL (test code=ALKP) IUnit/L 20-125 [id number] 10:11:00* Test Item Value Reference Range Comments LIPASE (test code=LIP) 214 IUnit/L 73-393 CBC W/AUTO [id number] 09:48:00* Test Item Value Reference Range Comments WHITE BLOOD CELL (test code=WBC) 7.27 x10 3/uL 4.5-11.0 RED BLOOD CELL (test code=RBC) 3.98 x10 6/uL 3.54-5.02 HEMOGLOBIN (test code=HGB) 11.2 g/dL 11.0-15.0 HEMATOCRIT (test code=HCT) 35.9 % 33.0-45.0 MEAN CELL VOLUME (test code=MCV) 90.2 fL 81.0-99.0 MEAN CELL HGB (test code=MCH) 28.1 pg 27.0-33.0 MEAN CELL HGB CONCETRATION (test code=MCHC) 31.2 g/dL 33.0-37.0 RED CELL DISTRIBUTION WIDTH CV (test code=RDW) 16.9 % 11.5-14.5 RED CELL DISTRIBUTION WIDTH SD (test code=RDW-SD) 55.9 fL 37.0-54.0 PLATELET COUNT (test code=PLT) 338 x10 3/uL 150-400 MEAN PLATELET VOLUME (test code=MPV) 11.4 fL 7.0-9.0 NEUTROPHIL % (test code=NT%) 77.0 % 56.0-77.0 IMMATURE GRANULOCYTE % (test code=IG%) 0.3 % 0.0-2.0 LYMPHOCYTE % (test code=LY%) 15.8 % 14.0-32.0 MONOCYTE % (test code=MO%) 4.3 % 4.8-9.0 EOSINOPHIL % (test code=EO%) 2.2 % 0.3-3.7 BASOPHIL % (test code=BA%) 0.4 % 0.0-2.0 NUCLEATED RBC % (test code=NRBC%) 0.0 % 0-0 NEUTROPHIL # (test code=NT#) 5.60 x10 3/uL 2.0-7.6 IMMATURE GRANULOCYTE # (test code=IG#) 0.02 x10 3/uL 0.00-0.03 LYMPHOCYTE # (test code=LY#) 1.15 x10 3/uL 1.0-3.8 MONOCYTE # (test code=MO#) 0.31 x10 3/uL 0.1-0.8 EOSINOPHIL # (test code=EO#) 0.16 x10 3/uL 0.0-0.2 BASOPHIL # (test code=BA#) 0.03 x10 3/uL 0.0-0.2 NUCLEATED RBC # (test code=NRBC#) 0.00 x10 3/uL 0.0-0.1 MANUAL DIFF REQUIRED (test code=MDIFF) NO - CT ABD PELVIS W/O [id number] 23:09:00 Name: HOLLEY GAYLE [facility] : 1990 Age/S: 27 / F [address] [place] [address] Unit #: [id number] Loc: [place] [address] Phys: Hilario Perdue MD Acct: [id number] Dis Date: Status: REG ER PHONE #: [phone] Exam Date: 05/02/20187 FAX #: [phone] Reason: abdominal pain EXAMS: CPT CODE: [id number] CT ABD PELVIS W/O CONT 49650 PROCEDURE: CT ABDOMEN AND PELVIS WITHOUT CONTRAST 05/02/2018 INDICATION: Right lower quadrant abdominal pain for one month. Past history of hysterectomy, cholecystectomy and surgery. COMPARISON: Abdomen CT 01/16/2018. NOTE: Please note that this will constitute CT #19 of the abdomen and pelvis performed at a [facility] institution alone since 01/19/2010. TECHNIQUE: Helical imaging was performed diaphragm through the symphysis with axial and coronal reformations obtained. IV CONTRAST: None. GI CONTRAST: 10 mL Gastrografin diluted in water. The patient was unable to tolerate oral contrast. JHV=410.15 mGy-cm FINDINGS: This examination is limited for the evaluation of solid organs and vascular structures due to lack of intravenous contrast. LOWER CHEST: Clear lungs with mild dependent subsegmental atelectasis. No pleural or pericardial effusion. No adenopathy. SOLID ORGANS: Cholecystectom y without biliary dilatation. The liver, gallbladder, spleen, pancreas, a drenal glands and kidneys show no gross focal abnormality. No renal or ure teral calculi. BOWEL: Nonobstructive bowel gas pattern without pne umatosis or portal venous air. Nonopacified, noninflamed appendix. Mild co lonic diverticulosis with no signs of diverticulitis. Normal caliber small bowel. PERITONEUM: No free intraperitoneal fluid or air. RETROPERITONEUM: No adenopathy. The aorta is normal. P JYOTI: No pelvic mass. The urinary bladder is normal. Absent uterus. MUSCULOSKELETAL: No destructive bone lesions. IMPRESSION: 1. No acute CT explanation for the patient's symptoms. 2. Constipa tion and mild colonic diverticulosis. 3. No signs of appendicitis. 4. Cholecystectomy and hysterectomy. PAGE 1 Signed Report (CONTINUED) Name: HOLLEY GAYLE [facility] : 1990 Age/S: 27 / F [address] [facility] [address] Unit #: [id number] Loc: [place] [address] Phys: Hilario ePrdue MD Acct: [id number] Dis Date: Status: REG ER PHONE #: [phone] Exam Date: 05/02/20182246 FAX #: [phone] Reason: abdominal pain EXAMS: CPT CODE: [id number] CT ABD PELVIS W/O CONT 04226 <Continued> ____ CT imaging performed at this location utilizes radiation dose optimization techniques which include one or more of the following: - Automated exposure control -Adjustment of the mA and/or kV according to patient size -Use of iterative reconstruction technique SL: ER-H at 2309 Reported and signed by: Miguel Alaniz M.D. CC: Hilario Perdue MD Technologist:RT Henrry(R) CTDI: DLP: Trnscb Date/Time: 05/02/2018 (230) [email or web address] Orig Print D/T: S: 05/02/2018 (2312) CTDI: DLP: PAGE 2 Signed Report HEPATIC FUNCTION [id number] 22:11:00* Test Item Value Reference Range Comments TOTAL PROTEIN (test code=PROT) 8.2 g/dL 6.4-8.2 ALBUMIN (test code=ALB) 3.90 g/dL 3.4-5.0 BILIRUBIN TOTAL (test code=BILT) 0.50 mg/dL 0.0-1.0 BILIRUBIN DIRECT (test code=BILD) < 0.10 MG/DL 0.0-0.30 BILIRUBIN INDIRECT (test code=BILIND) 0.40 MG/DL SGOT/AST (test code=AST) 19 IUnit/L 15-37 SGPT/ALT (test code=ALT) 30 IUnit/L 15-65 ALKALINE PHOSPHATASE TOTAL (test code=ALKP) 106 IUnit/L 20-125 [id number] 22:11:00* Test Item Value Reference Range Comments LIPASE (test code=LIP) 107 IUnit/L 73-393 [id number] 22:11:00* Test Item Value Reference Range Comments TROPONIN-I (test code=TROPI) < 0.015 ng/mL 0.000-0.045 Negative: <=0.045 Positive: >=0.046 Correlation with serial results, other cardiac markers andclinical findings is necessary to determine the clinicalsignificance of this result. Results using different methodologies should not be comparedto one another as quantitative results may vary by method. UR HCG [id number] 21:48:00* Test Item Value Reference Range Comments UR HCG QUAL (test code=HCGQLU) NEGATIVE NEGATIVE CBC W/AUTO [id number] 21:43:00* Test Item Value Reference Range Comments WHITE BLOOD CELL (test code=WBC) 9.49 x10 3/uL 4.5-11.0 RED BLOOD CELL (test code=RBC) 4.05 x10 6/uL 3.54-5.02 HEMOGLOBIN (test code=HGB) 11.3 g/dL 11.0-15.0 HEMATOCRIT (test code=HCT) 35.9 % 33.0-45.0 MEAN CELL VOLUME (test code=MCV) 88.6 fL 81.0-99.0 MEAN CELL HGB (test code=MCH) 27.9 pg 27.0-33.0 MEAN CELL HGB CONCETRATION (test code=MCHC) 31.5 g/dL 33.0-37.0 RED CELL DISTRIBUTION WIDTH CV (test code=RDW) 16.5 % 11.5-14.5 RED CELL DISTRIBUTION WIDTH SD (test code=RDW-SD) 53.3 fL 37.0-54.0 PLATELET COUNT (test code=PLT) 348 x10 3/uL 150-400 MEAN PLATELET VOLUME (test code=MPV) 11.2 fL 7.0-9.0 NEUTROPHIL % (test code=NT%) 76.3 % 56.0-77.0 IMMATURE GRANULOCYTE % (test code=IG%) 0.3 % 0.0-2.0 LYMPHOCYTE % (test code=LY%) 19.6 % 14.0-32.0 MONOCYTE % (test code=MO%) 3.6 % 4.8-9.0 EOSINOPHIL % (test code=EO%) 0.1 % 0.3-3.7 BASOPHIL % (test code=BA%) 0.1 % 0.0-2.0 NUCLEATED RBC % (test code=NRBC%) 0.0 % 0-0 NEUTROPHIL # (test code=NT#) 7.24 x10 3/uL 2.0-7.6 IMMATURE GRANULOCYTE # (test code=IG#) 0.03 x10 3/uL 0.00-0.03 LYMPHOCYTE # (test code=LY#) 1.86 x10 3/uL 1.0-3.8 MONOCYTE # (test code=MO#) 0.34 x10 3/uL 0.1-0.8 EOSINOPHIL # (test code=EO#) 0.01 x10 3/uL 0.0-0.2 BASOPHIL # (test code=BA#) 0.01 x10 3/uL 0.0-0.2 NUCLEATED RBC # (test code=NRBC#) 0.00 x10 3/uL 0.0-0.1 MANUAL DIFF REQUIRED (test code=MDIFF) NO TROPONIN-I [id number] 21:28:00* Test Item Value Reference Range Comments TROPONIN-I RAPID (test code=TROPIRAP) 0.00 ng/mL 0.00-0.08 Performed by certified bag filler machine operator [facility] Global Task Force with joint leadership from the [employer]ociety [employer] (ESC), the [place] [employer] (ACCF), the [place] [employer](AHA) and the World [employer] Federation (WHF) refined past criteria of myocardial infarction (PR) with a universal definition of myocardial infarction that supports the use of cTnI as a preferred biomarker for myocardial injury. The universal definition of PR, according to this taskforce, is defined as a typical rise and gradual fall ofcardiac biomarkers (preferably troponin) with at least onevalue above the 99th percentile of the upper reference limit (URL) together with evidence of myocardial ischemia with at least one of the following:* ischemic symptoms,* pathological Q waves on electrocardiogram (ECG),* ischemic ECG changes,* or imaging evidence of new loss of viable myocardium or new regional wall motion abnormality. An elevated troponin value alone is not sufficient todiagnose a myocardial infarction. Rather, the patient sclinical presentation (history, physical exam) and ECGshould be used in conjunction with troponin in thediagnostic evaluation of suspected myocardial infarction. Aserial sampling protocol is recommended to facilitate the identification of temporal changes in troponin levels characteristic of PR. URINALYSIS [id number] 20:54:00* Test Item Value Reference Range Comments UA COLOR (test code=COLU) YELLOW YEL/STRAW UA APPEARANCE (test code=APPU) SL CLOUDY CLEAR UA GLUCOSE DIPSTICK (test code=DGLUU) NEGATIVE NEGATIVE UA BILIRUBIN DIPSTICK (test code=BILU) NEGATIVE NEGATIVE UA KETONE DIPSTICK (test code=KETU) NEGATIVE NEGATIVE UA SPECIFIC GRAVITY (test code=SGU) 1.008 1.005-1.030 UA BLOOD DIPSTICK (test code=ZABRINA) 1+ NEGATIVE UA PH DIPSTICK (test code=ROC) 7.0 5.0-7.0 UA PROTEIN DIPSTICK (test code=PROU) NEGATIVE NEGATIVE UA UROBILINIOGEN DIPSTICK (test code=URO) 0.2 mg/dL 0.2-1.0 UA NITRITE DIPSTICK (test code=NURA) NEGATIVE NEGATIVE UA LEUKOCYTE ESTERASE DIPSTICK (test code=LEUU) NEGATIVE NEGATIVE UA WBC (test code=WBCU) 0-3 WBC/HPF 0-3 UA RBC (test code=RBCU) 0-3 RBC/HPF 0-3 UA BACTERIA (test code=BACU) TRACE /HPF NONE SEEN UA SQUAMOUS CELLS (test code=SQU) 6-10 /HPF NONE SEEN UA MUCUS (test code=MUCU) TRACE /LPF NONE SEEN COMMENTS: Clean CatchCHEMISTRY 8 [id number] 09:43:00* Test Item Value Reference Range Comments ISTAT-SODIUM (test code=NAP) mmol/L 135-146 ISTAT-POTASSIUM (test code=KP) mmol/L 3.5-4.9 ISTAT-CHLORIDE (test code=CLP) mmol/L 98-109 ISTAT-CARBON DIOXIDE (test code=ISTAT-CO2) mmol/L 24-29 ISTAT CALCIUM IONIZED (test code=ISTAT-RENE) mmol/L 1.12-1.32 ISTAT-GLUCOSE (test code=GLUP) mg/dL 70-105 ISTAT-BUN (test code=BUNP) mg/dL 8-26 BEDSIDE CREATININE (test code=CREATBED) mg/dL 0.6-1.3 GLOMERULAR FILTRATION RATE POC (test code=GFRBED) 155 71-165 CHEMISTRY 8 [id number] 09:43:00* Test Item Value Reference Range Comments ISTAT-SODIUM (test code=NAP) 137 mmol/L 135-146 ISTAT-POTASSIUM (test code=KP) 3.4 mmol/L 3.5-4.9 ISTAT-CHLORIDE (test code=CLP) 102 mmol/L 98-109 ISTAT-CARBON DIOXIDE (test code=ISTAT-CO2) 24 mmol/L 24-29 ISTAT CALCIUM IONIZED (test code=ISTAT-RENE) 1.14 mmol/L 1.12-1.32 ISTAT-GLUCOSE (test code=GLUP) 106 mg/dL 70-105 ISTAT-BUN (test code=BUNP) 5 mg/dL 8-26 BEDSIDE CREATININE (test code=CREATBED) 0.5 mg/dL 0.6-1.3 GLOMERULAR FILTRATION RATE POC (test code=GFRBED) 155 71-165 CBC W/AUTO [id number] 09:43:00* Test Item Value Reference Range Comments WHITE BLOOD CELL (test code=WBC) 6.0 K/mm3 3.5-11.0 RED BLOOD CELL (test code=RBC) 4.07 M/mm3 4.70-6.10 HEMOGLOBIN (test code=HGB) 12.0 G/DL 10.4-14.9 HEMATOCRIT (test code=HCT) 35.7 % 31.5-44.1 MEAN CELL VOLUME (test code=MCV) 87.7 Fl 84.5-98.6 MEAN CELL HGB (test code=MCH) 29.5 pg 27.0-34.2 MEAN CELL HGB CONCETRATION (test code=MCHC) 33.6 G/DL 31.5-34.0 RED CELL DISTRIBUTION WIDTH (test code=RDW) 17.6 SD 11.5-14.5 PLATELET COUNT (test code=PLT) 300.0 K/mm3 150-450 MEAN PLATELET VOLUME (test code=MPV) 10.10 fL 7.0-10.5 NEUTROPHIL % (test code=NT%) 72.3 % 40-76 LYMPHOCYTE % (test code=LY%) 17.4 % 20.5-51.1 MONOCYTE % (test code=MO%) 7.5 % 1.7-9.3 EOSINOPHIL % (test code=EO%) 2.5 % 0.0-6.0 BASOPHIL % (test code=BA%) 0.3 % 0.0-2.0 NEUTROPHIL # (test code=NT#) 4.33 K/mm3 1.8-7.6 LYMPHOCYTE # (test code=LY#) 1.0 K/mm3 0.6-3.2 MONOCYTE # (test code=MO#) 0.5 K/mm3 0.3-1.1 EOSINOPHIL # (test code=EO#) 0.2 K/mm3 0.0-0.4 BASOPHIL # (test code=BA#) 0.0 K/mm3 0.0-0.1 MANUAL DIFF REQUIRED (test code=MDIFF) NO DIFF/SCN CRITERIA URINALYSIS [id number] 09:47:00* Test Item Value Reference Range Comments UA COLOR (test code=COLU) YELLOW discript YEL/STRAW UA APPEARANCE (test code=APPU) CLEAR discript CLEAR UA GLUCOSE DIPSTICK (test code=DGLUU) NEGATIVE mg/dL NEG UA BILIRUBIN DIPSTICK (test code=BILU) NEGATIVE mg/dL NEG UA KETONE DIPSTICK (test code=KETU) NEGATIVE mg/dL NEG UA SPECIFIC GRAVITY (test code=SGU) 1.020 SG 1.005-1.030 UA BLOOD DIPSTICK (test code=ZABRINA) NEGATIVE mg/DL NEG UA PH DIPSTICK (test code=ROC) 6.0 pH UNITS 5.0-7.0 UA PROTEIN DIPSTICK (test code=PROU) NEGATIVE mg/dL NEG UA UROBILINIOGEN DIPSTICK (test code=URO) 0.2 mg/dL <2.0 UA NITRITE DIPSTICK (test code=NURA) NEGATIVE SCREEN NEG UA LEUKOCYTE ESTERASE DIPSTICK (test code=LEUU) NEGATIVE Leuk/mcL NEGATIVE DRUGS OF ABUSE SCREEN [id number] 09:47:00* Test Item Value Reference Range Comments URN COCAINE (test code=COCAURN) NEGATIVE SCcutoff <300 NG/ML URN CANNABINOIDS (test code=CANNABURN) POSITIVE SCcutoff <50 NG/ML URN AMPHETAMINE (test code=AMPHETURN) NEGATIVE SCcutoff <1000 NG/ML URN BARBITURATE (test code=BARBITURN) NEGATIVE SCcutoff <200 NG/ML URN BENZODIAZEPINE (test code=BENZOURN) POSITIVE SCcutoff <200 NG/ML URN OPIATES (test code=OPIATURN) NEGATIVE SCcutoff <2000 NG/ML URN PHENCYCLIDINE (PCP) (test code=PHENCURN) NEGATIVE SCcutoff <25 NG/ML URN METHADONE (test code=METHAURN) NEGATIVE SCcutoff <300 NG/ML BASIC METABOLIC [id number] 09:29:00* Test Item Value Reference Range Comments SODIUM (test code=NA) 139 mmol/L 134-147 POTASSIUM (test code=K) 4.5 mmol/L 3.4-5.0 CHLORIDE (test code=CL) 109 mmol/L 100-108 CARBON DIOXIDE (test code=CO2) 24 mmol/L 21-32 ANION GAP (test code=GAP) 6.0 GAP calc 4.0-15.0 GLUCOSE (test code=GLU) 86 MG/DL 70-110 BLOOD UREA NITROGEN (test code=BUN) 12 MG/DL 7-18 GLOMERULAR FILTRATION RATE (test code=GFR) >=60 max estimate estGFR >60 CREATININE (test code=CREAT) 0.5 MG/DL 0.6-1.0 CALCIUM (test code=CA) 8.5 MG/DL 8.5-10.1 HEPATIC FUNCTION [id number] 09:29:00* Test Item Value Reference Range Comments TOTAL PROTEIN (test code=PROT) 7.6 G/DL 6.4-8.2 ALBUMIN (test code=ALB) 3.6 G/DL 3.4-5.0 BILIRUBIN TOTAL (test code=BILT) 0.20 MG/DL 0.2-1.2 BILIRUBIN DIRECT (test code=BILD) < 0.10 MG/DL 0.00-0.30 BILIRUBIN INDIRECT (test code=BILIND) 0.10 MG/DL 0.2-1.2 SGOT/AST (test code=AST) 24 Unit/L 15-37 SGPT/ALT (test code=ALT) 64 Unit/L 12-78 ALKALINE PHOSPHATASE TOTAL (test code=ALKP) 107 Unit/L 45-117 [id number] 09:29:00* Test Item Value Reference Range Comments LIPASE (test code=LIP) 82 Unit/L 114-286 BASIC METABOLIC [id number] 09:27:00* Test Item Value Reference Range Comments SODIUM (test code=NA) 139 mmol/L 134-147 POTASSIUM (test code=K) 4.5 mmol/L 3.4-5.0 CHLORIDE (test code=CL) 109 mmol/L 100-108 CARBON DIOXIDE (test code=CO2) 24 mmol/L 21-32 ANION GAP (test code=GAP) 6.0 GAP calc 4.0-15.0 GLUCOSE (test code=GLU) 86 MG/DL 70-110 BLOOD UREA NITROGEN (test code=BUN) 12 MG/DL 7-18 GLOMERULAR FILTRATION RATE (test code=GFR) estGFR >60 CREATININE (test code=CREAT) MG/DL 0.6-1.0 CALCIUM (test code=CA) 8.5 MG/DL 8.5-10.1 HEPATIC FUNCTION [id number] 09:27:00* Test Item Value Reference Range Comments TOTAL PROTEIN (test code=PROT) G/DL 6.4-8.2 ALBUMIN (test code=ALB) G/DL 3.4-5.0 BILIRUBIN TOTAL (test code=BILT) MG/DL 0.2-1.2 BILIRUBIN DIRECT (test code=BILD) MG/DL 0.00-0.30 BILIRUBIN INDIRECT (test code=BILIND) MG/DL 0.2-1.2 SGOT/AST (test code=AST) Unit/L 15-37 SGPT/ALT (test code=ALT) Unit/L 12-78 ALKALINE PHOSPHATASE TOTAL (test code=ALKP) Unit/L 45-117 [id number] 09:27:00* Test Item Value Reference Range Comments LIPASE (test code=LIP) 82 Unit/L 114-286 URINALYSIS [id number] 09:25:00* Test Item Value Reference Range Comments UA COLOR (test code=COLU) YELLOW discript YEL/STRAW UA APPEARANCE (test code=APPU) CLEAR discript CLEAR UA GLUCOSE DIPSTICK (test code=DGLUU) NEGATIVE mg/dL NEG UA BILIRUBIN DIPSTICK (test code=BILU) NEGATIVE mg/dL NEG UA KETONE DIPSTICK (test code=KETU) NEGATIVE mg/dL NEG UA SPECIFIC GRAVITY (test code=SGU) 1.020 SG 1.005-1.030 UA BLOOD DIPSTICK (test code=ZABRINA) NEGATIVE mg/DL NEG UA PH DIPSTICK (test code=ROC) 6.0 pH UNITS 5.0-7.0 UA PROTEIN DIPSTICK (test code=PROU) NEGATIVE mg/dL NEG UA UROBILINIOGEN DIPSTICK (test code=URO) 0.2 mg/dL <2.0 UA NITRITE DIPSTICK (test code=NURA) NEGATIVE SCREEN NEG UA LEUKOCYTE ESTERASE DIPSTICK (test code=LEUU) NEGATIVE Leuk/mcL NEGATIVE DRUGS OF ABUSE SCREEN [id number] 09:25:00* Test Item Value Reference Range Comments URN COCAINE (test code=COCAURN) SCcutoff <300 NG/ML URN CANNABINOIDS (test code=CANNABURN) SCcutoff <50 NG/ML URN AMPHETAMINE (test code=AMPHETURN) SCcutoff <1000 NG/ML URN BARBITURATE (test code=BARBITURN) SCcutoff <200 NG/ML URN BENZODIAZEPINE (test code=BENZOURN) SCcutoff <200 NG/ML URN OPIATES (test code=OPIATURN) SCcutoff <2000 NG/ML URN PHENCYCLIDINE (PCP) (test code=PHENCURN) SCcutoff <25 NG/ML URN METHADONE (test code=METHAURN) SCcutoff <300 NG/ML - XR ABD ACUTE [id number] 09:19:00 Name: HOLLEY GAYLE [facility]ly [facility] : 1990 Age/S: 27 / F [id number] [address] Unit #: [id number] Loc: [place] [address] Phys: Sivakumar Lozano MD Acct: [id number] Dis Date: Status: REG ER PHONE #: [phone] Exam Date: 04/08/2018 08 FAX #: Reason: abd pain EXAMS: CPT: [id number] XR ABD ACUTE W/CHEST 79622 Fluoro Time: DAP (Gy m2): Air Kerma (mGy): Site ID: [id number] CLINICAL HISTORY: Abdominal pain, nausea FINDINGS: Heart and lungs appear normal. No abnormal calcification to suggest renal or ureteral calculi. Bowel gas pattern is benign. No evidence of ileus or bowel obstruction. Visualized osseous structures are unremarkable. IMPRESSION: Normal exam at 0919 Reported and signed by: Araceli Joyce M.D. CC: Venus Asencio DO; Sivakumar Lozano MD PAGE 1 Signed Report Name: HOLLEY GAYLE [facility]ly [facility] : 1990 Age/S: 27 / F [id number] [address] Unit #: [id number] Loc: [place] [address] Phys: Sivakumar Lozano MD Acct: [id number] Dis Date: Status: REG ER PHONE #: [phone] Exam Date: 04/08/2018 0855 FAX #: Reason: abd pain EXAMS: CPT: [id number] XR ABD ACUTE W/CHEST 24467 Fluoro Time: DAP (Gy m2): Air Kerma (mGy): < Continued> Technologist: Brandee Romero RT(R)(CT) Trnscb Date/Time: 04/08/2018 (918) [email or web address] Orig Print D/T: S: 04/08/2018 (921) PAGE 2 Signed Report CBC W/AUTO DIFF 2018-04-08 09:14:00* Test Item Value Reference Range Comments WHITE BLOOD CELL (test code=WBC) 6.7 K/mm3 3.5-11.0 RED BLOOD CELL (test code=RBC) 4.00 M/mm3 4.70-6.10 HEMOGLOBIN (test code=HGB) 11.4 G/DL 10.4-14.9 HEMATOCRIT (test code=HCT) 35.1 % 31.5-44.1 MEAN CELL VOLUME (test code=MCV) 87.8 Fl 84.5-98.6 MEAN CELL HGB (test code=MCH) 28.5 pg 27.0-34.2 MEAN CELL HGB CONCETRATION (test code=MCHC) 32.5 G/DL 31.5-34.0 RED CELL DISTRIBUTION WIDTH (test code=RDW) 18.5 SD 11.5-14.5 PLATELET COUNT (test code=PLT) 299.0 K/mm3 150-450 MEAN PLATELET VOLUME (test code=MPV) 11.10 fL 7.0-10.5 NEUTROPHIL % (test code=NT%) 73.7 % 40-76 LYMPHOCYTE % (test code=LY%) 19.4 % 20.5-51.1 MONOCYTE % (test code=MO%) 4.5 % 1.7-9.3 EOSINOPHIL % (test code=EO%) 1.8 % 0.0-6.0 BASOPHIL % (test code=BA%) 0.6 % 0.0-2.0 NEUTROPHIL # (test code=NT#) 4.90 K/mm3 1.8-7.6 LYMPHOCYTE # (test code=LY#) 1.3 K/mm3 0.6-3.2 MONOCYTE # (test code=MO#) 0.3 K/mm3 0.3-1.1 EOSINOPHIL # (test code=EO#) 0.1 K/mm3 0.0-0.4 BASOPHIL # (test code=BA#) 0.0 K/mm3 0.0-0.1 MANUAL DIFF REQUIRED (test code=MDIFF) NO DIFF/SCN CRITERIA COMPREHENSIVE METABOLIC [id number] 11:09:00* Test Item Value Reference Range Comments SODIUM (test code=NA) 140 mmol/L 134-147 POTASSIUM (test code=K) 4.2 mmol/L 3.4-5.0 CHLORIDE (test code=CL) 109 mmol/L 100-108 CARBON DIOXIDE (test code=CO2) 26 mmol/L 21-32 ANION GAP (test code=GAP) 5.0 GAP calc 4.0-15.0 GLUCOSE (test code=GLU) 79 MG/DL 70-110 BLOOD UREA NITROGEN (test code=BUN) 8 MG/DL 7-18 GLOMERULAR FILTRATION RATE (test code=GFR) >=60 max estimate estGFR >60 CREATININE (test code=CREAT) 0.6 MG/DL 0.6-1.0 TOTAL PROTEIN (test code=PROT) 7.4 G/DL 6.4-8.2 ALBUMIN (test code=ALB) 3.6 G/DL 3.4-5.0 GLOBULIN (test code=GLOB) 3.8 GM/dL ALBUMIN/GLOBULIN RATIO (test code=A/G) 1.0 RATIO 1.2-2.2 CALCIUM (test code=CA) 8.5 MG/DL 8.5-10.1 BILIRUBIN TOTAL (test code=BILT) 0.30 MG/DL 0.2-1.2 SGOT/AST (test code=AST) 23 Unit/L 15-37 SGPT/ALT (test code=ALT) 18 Unit/L 12-78 ALKALINE PHOSPHATASE TOTAL (test code=ALKP) 77 Unit/L 45-117 [id number] 11:09:00* Test Item Value Reference Range Comments LIPASE (test code=LIP) 84 Unit/L 114-286 URINALYSIS [id number] 11:00:00* Test Item Value Reference Range Comments UA COLOR (test code=COLU) YELLOW discript YEL/STRAW UA APPEARANCE (test code=APPU) CLEAR discript CLEAR UA GLUCOSE DIPSTICK (test code=DGLUU) NEGATIVE mg/dL NEG UA BILIRUBIN DIPSTICK (test code=BILU) NEGATIVE mg/dL NEG UA KETONE DIPSTICK (test code=KETU) NEGATIVE mg/dL NEG UA SPECIFIC GRAVITY (test code=SGU) 1.010 SG 1.005-1.030 UA BLOOD DIPSTICK (test code=ZABRINA) NEGATIVE mg/DL NEG UA PH DIPSTICK (test code=ROC) 7.0 pH UNITS 5.0-7.0 UA PROTEIN DIPSTICK (test code=PROU) NEGATIVE mg/dL NEG UA UROBILINIOGEN DIPSTICK (test code=URO) 0.2 mg/dL <2.0 UA NITRITE DIPSTICK (test code=NURA) NEGATIVE SCREEN NEG UA LEUKOCYTE ESTERASE DIPSTICK (test code=LEUU) NEGATIVE Leuk/mcL NEGATIVE CBC W/AUTO [id number] 10:59:00* Test Item Value Reference Range Comments WHITE BLOOD CELL (test code=WBC) 6.3 K/mm3 3.5-11.0 RED BLOOD CELL (test code=RBC) 3.81 M/mm3 4.70-6.10 HEMOGLOBIN (test code=HGB) 11.0 G/DL 10.4-14.9 HEMATOCRIT (test code=HCT) 33.2 % 31.5-44.1 MEAN CELL VOLUME (test code=MCV) 87.1 Fl 84.5-98.6 MEAN CELL HGB (test code=MCH) 28.9 pg 27.0-34.2 MEAN CELL HGB CONCETRATION (test code=MCHC) 33.1 G/DL 31.5-34.0 RED CELL DISTRIBUTION WIDTH (test code=RDW) 18.2 SD 11.5-14.5 PLATELET COUNT (test code=PLT) 298.0 K/mm3 150-450 MEAN PLATELET VOLUME (test code=MPV) 11.20 fL 7.0-10.5 NEUTROPHIL % (test code=NT%) 63.3 % 40-76 LYMPHOCYTE % (test code=LY%) 30.2 % 20.5-51.1 MONOCYTE % (test code=MO%) 4.6 % 1.7-9.3 EOSINOPHIL % (test code=EO%) 1.7 % 0.0-6.0 BASOPHIL % (test code=BA%) 0.2 % 0.0-2.0 NEUTROPHIL # (test code=NT#) 3.99 K/mm3 1.8-7.6 LYMPHOCYTE # (test code=LY#) 1.9 K/mm3 0.6-3.2 MONOCYTE # (test code=MO#) 0.3 K/mm3 0.3-1.1 EOSINOPHIL # (test code=EO#) 0.1 K/mm3 0.0-0.4 BASOPHIL # (test code=BA#) 0.0 K/mm3 0.0-0.1 MANUAL DIFF REQUIRED (test code=MDIFF) NO DIFF/SCN CRITERIA LACTIC [id number] 02:37:00* Test Item Value Reference Range Comments LACTIC ACID (test code=LACT) 0.9 mmol/L 0.4-1.9 BASIC METABOLIC [id number] 02:06:00* Test Item Value Reference Range Comments SODIUM (test code=NA) 136 mmol/L 136-145 POTASSIUM (test code=K) 4.5 mmol/L 3.5-5.1 CHLORIDE (test code=CL) 104.0 mmol/L 98-107 CARBON DIOXIDE (test code=CO2) 24.0 mmol/L 21-32 ANION GAP (test code=GAP) 12.5 10-20 GLUCOSE (test code=GLU) 87 mg/dL 74-106 BLOOD UREA NITROGEN (test code=BUN) 10 mg/dL 7-18 GLOMERULAR FILTRATION RATE (test code=GFR) > 60 mL/min >=60 Estimated GFR by using Modified MDRD formula.Chronic kidney disease is defined as either kidney damageor GFR <60 mL/min/1.73 m2 for >3 months. CREATININE (test code=CREAT) 0.50 mg/dL 0.55-1.02 Note change in reference range due to change in reagent. BUN/CREATININE RATIO (test code=BUN/CREA) 19.6 10-20 CALCIUM (test code=CA) 8.7 mg/dL 8.5-10.1 BASIC METABOLIC [id number] 02:01:00* Test Item Value Reference Range Comments SODIUM (test code=NA) 136 mmol/L 136-145 POTASSIUM (test code=K) 4.5 mmol/L 3.5-5.1 CHLORIDE (test code=CL) 104.0 mmol/L 98-107 CARBON DIOXIDE (test code=CO2) mmol/L 21-32 ANION GAP (test code=GAP) 10-20 GLUCOSE (test code=GLU) mg/dL 74-106 BLOOD UREA NITROGEN (test code=BUN) mg/dL 7-18 GLOMERULAR FILTRATION RATE (test code=GFR) mL/min >=60 CREATININE (test code=CREAT) mg/dL 0.55-1.02 BUN/CREATININE RATIO (test code=BUN/CREA) 10-20 CALCIUM (test code=CA) mg/dL 8.5-10.1 LACTIC [id number] 23:03:00* Test Item Value Reference Range Comments LACTIC ACID (test code=LACT) 2.2 mmol/L 0.4-1.9 Results called to [id number] by [email or web address] 03/23/18 2303Critical results verified and read back by Nurse? Y DRUGS OF ABUSE SCREEN [id number] 22:00:00* Test Item Value Reference Range Comments UA PH DIPSTICK (test code=ROC) 7.0 5.0-8.0 URN COCAINE (test code=COCAURN) NEGATIVE <300 ng/mL URN CANNABINOIDS (test code=CANNABURN) POSITIVE <50 ng/mL This test provides only a preliminary test result. A morespecific alternate chemical method must be used in order toobtain a confirmed analytical result. Gas chromatography/mass spectrometry (GC/MS) is thepreferred confirmatory method. Other chemical confirmationmethods are available. Clinical consideration and professional judgment should be applied to any drug of abusetest result, particularly when preliminary positive resultsare used.Unconfirmed screening results must not be used fornon-medical purposes (e.g., employment testing, legaltesting). URN AMPHETAMINE (test code=AMPHETURN) NEGATIVE <1000 ng/mL URN BARBITURATE (test code=BARBITURN) NEGATIVE <200 ng/mL URN BENZODIAZEPINE (test code=BENZOURN) POSITIVE <200 ng/mL This test provides only a preliminary test result. A morespecific alternate chemical method must be used in order toobtain a confirmed analytical result. Gas chromatography/mass spectrometry (GC/MS) is thepreferred confirmatory method. Other chemical confirmationmethods are available. Clinical consideration and professional judgment should be applied to any drug of abusetest result, particularly when preliminary positive resultsare used.Unconfirmed screening results must not be used fornon-medical purposes (e.g., employment testing, legaltesting). URN OPIATES (test code=OPIATURN) NEGATIVE <300 ng/mL URN PHENCYCLIDINE (PCP) (test code=PHENCURN) NEGATIVE <25 ng/mL URN METHADONE (test code=METHAURN) NEGATIVE <300 ng/mL DRUGS OF ABUSE SCREEN [id number] 21:38:00* Test Item Value Reference Range Comments UA PH DIPSTICK (test code=ROC) 5.0-8.0 URN COCAINE (test code=COCAURN) NEGATIVE <300 ng/mL URN CANNABINOIDS (test code=CANNABURN) POSITIVE <50 ng/mL This test provides only a preliminary test result. A morespecific alternate chemical method must be used in order toobtain a confirmed analytical result. Gas chromatography/mass spectrometry (GC/MS) is thepreferred confirmatory method. Other chemical confirmationmethods are available. Clinical consideration and professional judgment should be applied to any drug of abusetest result, particularly when preliminary positive resultsare used.Unconfirmed screening results must not be used fornon-medical purposes (e.g., employment testing, legaltesting). URN AMPHETAMINE (test code=AMPHETURN) NEGATIVE <1000 ng/mL URN BARBITURATE (test code=BARBITURN) NEGATIVE <200 ng/mL URN BENZODIAZEPINE (test code=BENZOURN) POSITIVE <200 ng/mL This test provides only a preliminary test result. A morespecific alternate chemical method must be used in order toobtain a confirmed analytical result. Gas chromatography/mass spectrometry (GC/MS) is thepreferred confirmatory method. Other chemical confirmationmethods are available. Clinical consideration and professional judgment should be applied to any drug of abusetest result, particularly when preliminary positive resultsare used.Unconfirmed screening results must not be used fornon-medical purposes (e.g., employment testing, legaltesting). URN OPIATES (test code=OPIATURN) NEGATIVE <300 ng/mL URN PHENCYCLIDINE (PCP) (test code=PHENCURN) NEGATIVE <25 ng/mL URN METHADONE (test code=METHAURN) NEGATIVE <300 ng/mL BASIC METABOLIC [id number] 21:25:00* Test Item Value Reference Range Comments SODIUM (test code=NA) 129 mmol/L 136-145 POTASSIUM (test code=K) 4.0 mmol/L 3.5-5.1 CHLORIDE (test code=CL) 104.0 mmol/L 98-107 CARBON DIOXIDE (test code=CO2) 1.0 mmol/L 21-32 ANION GAP (test code=GAP) 28.0 10-20 GLUCOSE (test code=GLU) 146 mg/dL 74-106 BLOOD UREA NITROGEN (test code=BUN) 4 mg/dL 7-18 GLOMERULAR FILTRATION RATE (test code=GFR) > 60 mL/min >=60 Estimated GFR by using Modified MDRD formula.Chronic kidney disease is defined as either kidney damageor GFR <60 mL/min/1.73 m2 for >3 months. CREATININE (test code=CREAT) 0.80 mg/dL 0.55-1.02 Note change in reference range due to change in reagent. BUN/CREATININE RATIO (test code=BUN/CREA) 5.2 10-20 CALCIUM (test code=CA) 9.6 mg/dL 8.5-10.1 HEPATIC FUNCTION [id number] 21:25:00* Test Item Value Reference Range Comments TOTAL PROTEIN (test code=PROT) 9.1 gram/dL 6.4-8.2 ALBUMIN (test code=ALB) 3.6 g/dL 3.4-5.0 GLOBULIN (test code=GLOB) 5.5 gram/dL 2.7-4.2 ALBUMIN/GLOBULIN RATIO (test code=A/G) 0.7 0.75-1.50 BILIRUBIN TOTAL (test code=BILT) 0.70 mg/dL 0.0-1.0 BILIRUBIN DIRECT (test code=BILD) 0.08 mg/dL 0.0-0.20 SGOT/AST (test code=AST) 20 IUnit/L 15-37 SGPT/ALT (test code=ALT) 23 IUnit/L 12-78 ALKALINE PHOSPHATASE TOTAL (test code=ALKP) 115 IUnit/L 45-117 Note change in reference range due to change in reagent. [id number] 21:25:00* Test Item Value Reference Range Comments LIPASE (test code=LIP) 38 U/L 73.0-393.0 HCG SERUM [id number] 21:25:00* Test Item Value Reference Range Comments HCG SERUM QUAL (test code=HCGQL) NEGATIVE NEGATIVE This HCGQL test is NOT applicable for MALE patients.Check with nurse about probable order error.If Tumor Marker Test needed, nurse should order test "HCGTU"(Test #550.08584) BASIC METABOLIC [id number] 21:24:00* Test Item Value Reference Range Comments SODIUM (test code=NA) mmol/L 136-145 POTASSIUM (test code=K) mmol/L 3.5-5.1 CHLORIDE (test code=CL) mmol/L 98-107 CARBON DIOXIDE (test code=CO2) mmol/L 21-32 ANION GAP (test code=GAP) 10-20 GLUCOSE (test code=GLU) 146 mg/dL 74-106 BLOOD UREA NITROGEN (test code=BUN) mg/dL 7-18 GLOMERULAR FILTRATION RATE (test code=GFR) mL/min >=60 CREATININE (test code=CREAT) mg/dL 0.55-1.02 BUN/CREATININE RATIO (test code=BUN/CREA) 10-20 CALCIUM (test code=CA) mg/dL 8.5-10.1 HEPATIC FUNCTION [id number] 21:24:00* Test Item Value Reference Range Comments TOTAL PROTEIN (test code=PROT) gram/dL 6.4-8.2 ALBUMIN (test code=ALB) g/dL 3.4-5.0 GLOBULIN (test code=GLOB) gram/dL 2.7-4.2 ALBUMIN/GLOBULIN RATIO (test code=A/G) 0.75-1.50 BILIRUBIN TOTAL (test code=BILT) mg/dL 0.0-1.0 BILIRUBIN DIRECT (test code=BILD) mg/dL 0.0-0.20 SGOT/AST (test code=AST) IUnit/L 15-37 SGPT/ALT (test code=ALT) IUnit/L 12-78 ALKALINE PHOSPHATASE TOTAL (test code=ALKP) IUnit/L 45-117 [id number] 21:24:00* Test Item Value Reference Range Comments LIPASE (test code=LIP) U/L 73.0-393.0 HCG SERUM [id number] 21:24:00* Test Item Value Reference Range Comments HCG SERUM QUAL (test code=HCGQL) NEGATIVE NEGATIVE This HCGQL test is NOT applicable for MALE patients.Check with nurse about probable order error.If Tumor Marker Test needed, nurse should order test "HCGTU"(Test #550.15894) URINALYSIS [id number] 21:16:00* Test Item Value Reference Range Comments UA COLOR (test code=COLU) YELLOW YELLOW UA APPEARANCE (test code=APPU) Cloudy CLEAR UA GLUCOSE DIPSTICK (test code=DGLUU) 150 (1+) mg/dL NEGATIVE UA BILIRUBIN DIPSTICK (test code=BILU) NEGATIVE mg/dL NEGATIVE UA KETONE DIPSTICK (test code=KETU) 5 (Trace) mg/dL NEGATIVE UA SPECIFIC GRAVITY (test code=SGU) 1.025 1.001-1.035 UA BLOOD DIPSTICK (test code=ZABRINA) Negative NEGATIVE UA PH DIPSTICK (test code=ROC) 7.0 5.0-8.0 UA PROTEIN DIPSTICK (test code=PROU) 100 (2+) mg/dL NEGATIVE UA UROBILINIOGEN DIPSTICK (test code=URO) NEGATIVE mg/dL NEGATIVE UA NITRITE DIPSTICK (test code=NURA) NEGATIVE NEGATIVE UA LEUKOCYTE ESTERASE W REFLEX (test code=LEUUR) NEGATIVE NEGATIVE UA WBC (test code=WBCU) 6-10 #/HPF 0-5 UA RBC (test code=RBCU) 6-10 #/HPF 0-5 UA EPITHELIAL CELLS (test code=EPIU) MANY per HPF FEW UA BACTERIA (test code=BACU) FEW #/HPF NONE UA HYALINE CAST (test code=HYALU) 3-5 #/LPF 0-5 UA MUCUS (test code=MUCU) MANY #/LPF FEW UA YEAST (test code=YEASTU) FEW #/HPF NONE Urine Source? Clean CatchBASIC METABOLIC [id number] 21:14:00* Test Item Value Reference Range Comments SODIUM (test code=NA) mmol/L 136-145 POTASSIUM (test code=K) mmol/L 3.5-5.1 CHLORIDE (test code=CL) mmol/L 98-107 CARBON DIOXIDE (test code=CO2) mmol/L 21-32 ANION GAP (test code=GAP) 10-20 GLUCOSE (test code=GLU) mg/dL 74-106 BLOOD UREA NITROGEN (test code=BUN) mg/dL 7-18 GLOMERULAR FILTRATION RATE (test code=GFR) mL/min >=60 CREATININE (test code=CREAT) mg/dL 0.55-1.02 BUN/CREATININE RATIO (test code=BUN/CREA) 10-20 CALCIUM (test code=CA) mg/dL 8.5-10.1 HEPATIC FUNCTION [id number] 21:14:00* Test Item Value Reference Range Comments TOTAL PROTEIN (test code=PROT) gram/dL 6.4-8.2 ALBUMIN (test code=ALB) g/dL 3.4-5.0 GLOBULIN (test code=GLOB) gram/dL 2.7-4.2 ALBUMIN/GLOBULIN RATIO (test code=A/G) 0.75-1.50 BILIRUBIN TOTAL (test code=BILT) mg/dL 0.0-1.0 BILIRUBIN DIRECT (test code=BILD) mg/dL 0.0-0.20 SGOT/AST (test code=AST) IUnit/L 15-37 SGPT/ALT (test code=ALT) IUnit/L 12-78 ALKALINE PHOSPHATASE TOTAL (test code=ALKP) IUnit/L 45-117 [id number] 21:14:00* Test Item Value Reference Range Comments LIPASE (test code=LIP) U/L 73.0-393.0 HCG SERUM [id number] 21:14:00* Test Item Value Reference Range Comments HCG SERUM QUAL (test code=HCGQL) NEGATIVE NEGATIVE This HCGQL test is NOT applicable for MALE patients.Check with nurse about probable order error.If Tumor Marker Test needed, nurse should order test "HCGTU"(Test #[id number]) CBC W/O [id number] 20:52:00* Test Item Value Reference Range Comments WHITE BLOOD CELL (test code=WBC) 14.2 K/mm3 4.5-12.5 RED BLOOD CELL (test code=RBC) 4.72 mill/mm3 3.7-5.2 HEMOGLOBIN (test code=HGB) 12.7 gram/dL 11.5-15.5 HEMATOCRIT (test code=HCT) 43.2 % 36.0-46.0 MEAN CELL VOLUME (test code=MCV) 91.5 fL 80-98 MEAN CELL HGB (test code=MCH) 26.9 picogram 27.0-33.0 MEAN CELL HGB CONCETRATION (test code=MCHC) 29.4 gram/dL 33.0-36.0 RED CELL DISTRIBUTION WIDTH (test code=RDW) 17.3 % 11.6-16.2 PLATELET COUNT (test code=PLT) 317 K/mm3 150-450 MEAN PLATELET VOLUME (test code=MPV) 11.3 fL 6.7-11.0 URINALYSIS W/ REFLEX URINE [id number] 13:37:00* Test Item Value Reference Range Comments COLOR (BEAKER) (test fsif=513) Yellow CLARITY (BEAKER) (test niof=834) Clear SPECIFIC GRAVITY UA (BEAKER) (test wxci=533) 1.020 1.001-1.035 PH UA (BEAKER) (test zsix=899) 7.0 5.0-8.0 PROTEIN UA (BEAKER) (test yott=175) 10 mg/dL Negative GLUCOSE UA (BEAKER) (test yqmz=632) Negative Negative KETONES UA (BEAKER) (test atnp=622) Negative Negative BILIRUBIN UA (BEAKER) (test wjel=896) Negative Negative BLOOD UA (BEAKER) (test vufz=965) Negative Negative NITRITE UA (BEAKER) (test efka=943) Negative Negative LEUKOCYTE ESTERASE UA (BEAKER) (test ialk=782) Negative Negative UROBILINOGEN UA (BEAKER) (test hwsk=925) 0.2 mg/dL 0.2-1.0 RBC UA (BEAKER) (test uodh=754) 1 /HPF WBC UA (BEAKER) (test fbap=960) 1 /HPF BACTERIA (BEAKER) (test dkao=801) Occasional MUCUS (BEAKER) (test sudp=5397) Rare SQUAMOUS EPITHELIAL (BEAKER) (test vkmt=357) 7 /HPF SOURCE(BEAKER) (test lbws=6720) SCREEN, [id number] 13:20:00* Test Item Value Reference Range Comments TEST URINE (BEAKER) (test ugjd=771) Negative [id number] 12:58:00* Test Item Value Reference Range Comments LIPASE (BEAKER) (test ndhn=714) 7 U/L 8-78 BASIC METABOLIC [id number] 12:58:00* Test Item Value Reference Range Comments SODIUM (BEAKER) (test xilk=425) 133 meq/L 136-145 POTASSIUM (BEAKER) (test cmlv=557) 4.2 meq/L 3.5-5.1 CHLORIDE (BEAKER) (test mluc=760) 103 meq/L 98-107 CO2 (BEAKER) (test tiei=056) 21 meq/L 22-29 BLOOD UREA NITROGEN (BEAKER) (test adnd=235) 10 mg/dL 7-21 CREATININE (BEAKER) (test azjc=357) 0.66 mg/dL 0.57-1.25 GLUCOSE RANDOM (BEAKER) (test qhlm=090) 85 mg/dL 70-105 CALCIUM (BEAKER) (test dtfe=401) 9.6 mg/dL 8.4-10.2 EGFR (BEAKER) (test qcpu=6812) 106 mL/min/1.73 sq m ESTIMATED GFR IS NOT ACCURATE CREATININE CLEARANCE IN PREDICTING GLOMERULAR FILTRATION RATE. ESTIMATED GFR IS NOT APPLICABLE FOR DIALYSIS PATIENTS. HEPATIC FUNCTION [id number] 12:58:00* Test Item Value Reference Range Comments TOTAL PROTEIN (BEAKER) (test hfxl=401) 8.1 gm/dL 6.0-8.3 ALBUMIN (BEAKER) (test ghwp=7905) 4.6 g/dL 3.5-5.0 BILIRUBIN TOTAL (BEAKER) (test zwlu=887) 0.5 mg/dL 0.2-1.2 BILIRUBIN DIRECT (BEAKER) (test agef=203) 0.2 mg/dL 0.1-0.5 ALKALINE PHOSPHATASE (BEAKER) (test ycyc=808) 102 U/L 40-150 AST (SGOT) (BEAKER) (test vxeo=755) 18 U/L 5-34 ALT (SGPT) (BEAKER) (test eqib=772) 40 U/L 6-55 CBC W/PLT COUNT & AUTO [id number] 12:40:00* Test Item Value Reference Range Comments WHITE BLOOD CELL COUNT (BEAKER) (test dcra=134) 9.7 K/ L 3.5-10.5 RED BLOOD CELL COUNT (BEAKER) (test pjdl=886) 4.40 M/ L 3.93-5.22 HEMOGLOBIN (BEAKER) (test kpxy=929) 12.4 GM/DL 11.2-15.7 HEMATOCRIT (BEAKER) (test aiwc=712) 39.8 % 34.1-44.9 MEAN CORPUSCULAR VOLUME (BEAKER) (test jufc=937) 90.5 fL 79.4-94.8 MEAN CORPUSCULAR HEMOGLOBIN (BEAKER) (test itni=804) 28.2 pg 25.6-32.2 MEAN CORPUSCULAR HEMOGLOBIN CONC (BEAKER) (test yilm=353) 31.2 GM/DL 32.2-35.5 RED CELL DISTRIBUTION WIDTH (BEAKER) (test jmlq=412) 16.6 % 11.7-14.4 PLATELET COUNT (BEAKER) (test meqt=874) 340 K/CU MM 150-450 MEAN PLATELET VOLUME (BEAKER) (test viby=897) 11.4 fL 9.4-12.3 NUCLEATED RED BLOOD CELLS (BEAKER) (test vesm=586) 0 /100 WBC 0-0 NEUTROPHILS RELATIVE PERCENT (BEAKER) (test ufon=737) 74 % LYMPHOCYTES RELATIVE PERCENT (BEAKER) (test sdam=237) 22 % MONOCYTES RELATIVE PERCENT (BEAKER) (test qpay=076) 3 % EOSINOPHILS RELATIVE PERCENT (BEAKER) (test pprr=169) 1 % BASOPHILS RELATIVE PERCENT (BEAKER) (test vhne=734) 0 % NEUTROPHILS ABSOLUTE COUNT (BEAKER) (test yksg=071) 7.15 K/ L 1.56-6.13 LYMPHOCYTES ABSOLUTE COUNT (BEAKER) (test ricf=768) 2.12 K/ L 1.18-3.74 MONOCYTES ABSOLUTE COUNT (BEAKER) (test zbaz=684) 0.27 K/ L 0.24-0.36 EOSINOPHILS ABSOLUTE COUNT (BEAKER) (test ekfr=910) 0.05 K/ L 0.04-0.36 BASOPHILS ABSOLUTE COUNT (BEAKER) (test tzfe=776) 0.04 K/ L 0.01-0.08 IMMATURE GRANULOCYTES-RELATIVE PERCENT (BEAKER) (test ycbn=7015) 0 % 0-1 CT, [id number] 13:15:00Reason for exam:->ABDOMINAL PAINIs the patient ?->NoWhat is the patient's sedation requirement?->No SedationFINAL REPORT CT of the abdomen and pelvis, with contrast Clinical History: Abd pain, gastroenteritis or colitis suspectedABDOMINAL PAIN Technique: CT of the abdomen and pelvis is performed with intravenous contrast administration. This exam was performed according to our departmental dose opti mization program which includes automated exposure control, adjustment of the mA and/or kV according to patient's size and/or use of iterative reconstructive te chnique. Comparison Film: November 20, 2015 Discussion: Visualized lower thora x is unremarkable. No liver lesion is identified. No biliary ductal dilatation. Status post cholecystectomy. The spleen, pancreas, adrenal glands are unremarkab le. Kidneys demonstrate no mass, hydronephrosis, or obstructive stone. No bowel obstruction. Question mild colonic wall thickening, versus underdistention. A fe w scattered colonic diverticuli are present. Normal appendix. In the pelvis, hilary dder is unremarkable. Uterus is absent. No adnexal mass. There is no ascites, fr ee air, or lymphadenopathy. Osseous structures are intact. Impression: Question mild colonic wall thickening, versus underdistention. Mild colonic diverticulosi s. Status post cholecystectomy and hysterectomy. Signed: Sandy [place] Verif ied Date/Time: 10/20/2017 13:15:31 Reading Location: [address] Ortho Consult Reading Room 01: 15 PM [id number] 10:40:00* Test Item Value Reference Range Comments LIPASE (BEAKER) (test qqln=541) 8 U/L 8-78 BASIC METABOLIC [id number] 10:40:00* Test Item Value Reference Range Comments SODIUM (BEAKER) (test zioe=255) 133 meq/L 136-145 POTASSIUM (BEAKER) (test xqxm=011) 4.2 meq/L 3.5-5.1 CHLORIDE (BEAKER) (test jyty=703) 105 meq/L 98-107 CO2 (BEAKER) (test nvkv=282) 16 meq/L 22-29 BLOOD UREA NITROGEN (BEAKER) (test etsb=716) 10 mg/dL 7-21 CREATININE (BEAKER) (test wnra=882) 0.64 mg/dL 0.57-1.25 GLUCOSE RANDOM (BEAKER) (test dejj=329) 89 mg/dL 70-105 CALCIUM (BEAKER) (test tegb=896) 10.0 mg/dL 8.4-10.2 EGFR (BEAKER) (test lvyr=6747) 110 mL/min/1.73 sq m ESTIMATED GFR IS NOT ACCURATE CREATININE CLEARANCE IN PREDICTING GLOMERULAR FILTRATION RATE. ESTIMATED GFR IS NOT APPLICABLE FOR DIALYSIS PATIENTS. HEPATIC FUNCTION [id number] 10:40:00* Test Item Value Reference Range Comments TOTAL PROTEIN (BEAKER) (test qnob=638) 8.3 gm/dL 6.0-8.3 ALBUMIN (BEAKER) (test stio=4502) 4.4 g/dL 3.5-5.0 BILIRUBIN TOTAL (BEAKER) (test bwik=075) 0.6 mg/dL 0.2-1.2 BILIRUBIN DIRECT (BEAKER) (test fmud=400) 0.3 mg/dL 0.1-0.5 ALKALINE PHOSPHATASE (BEAKER) (test qudl=592) 107 U/L 40-150 AST (SGOT) (BEAKER) (test dzgc=052) 29 U/L 5-34 ALT (SGPT) (BEAKER) (test tabn=760) 42 U/L 6-55 URINALYSIS W/ [id number] 10:38:00* Test Item Value Reference Range Comments COLOR (BEAKER) (test ahda=059) Yellow CLARITY (BEAKER) (test ycoq=901) Clear SPECIFIC GRAVITY UA (BEAKER) (test jrxt=083) 1.021 1.001-1.035 PH UA (BEAKER) (test dioo=358) 6.0 5.0-8.0 PROTEIN UA (BEAKER) (test elcu=523) 10 mg/dL Negative GLUCOSE UA (BEAKER) (test owvz=983) Negative Negative KETONES UA (BEAKER) (test hznu=717) Negative Negative BILIRUBIN UA (BEAKER) (test iwby=870) Negative Negative BLOOD UA (BEAKER) (test vedq=115) Negative Negative NITRITE UA (BEAKER) (test xsrg=992) Negative Negative LEUKOCYTE ESTERASE UA (BEAKER) (test zhkn=049) Negative Negative UROBILINOGEN UA (BEAKER) (test rjgs=697) 0.2 mg/dL 0.2-1.0 RBC UA (BEAKER) (test lweq=601) 1 /HPF WBC UA (BEAKER) (test zirh=915) < /HPF MUCUS (BEAKER) (test omsb=7896) Few SQUAMOUS EPITHELIAL (BEAKER) (test hkms=734) 3 /HPF SOURCE(BEAKER) (test yhnc=5175) CBC W/PLT COUNT & AUTO [id number] 10:33:00* Test Item Value Reference Range Comments WHITE BLOOD CELL COUNT (BEAKER) (test qcsy=927) 8.7 K/ L 3.5-10.5 RED BLOOD CELL COUNT (BEAKER) (test rcgu=788) 4.13 M/ L 3.93-5.22 HEMOGLOBIN (BEAKER) (test lpib=522) 12.0 GM/DL 11.2-15.7 HEMATOCRIT (BEAKER) (test ndpl=026) 36.9 % 34.1-44.9 MEAN CORPUSCULAR VOLUME (BEAKER) (test vodq=696) 89.3 fL 79.4-94.8 MEAN CORPUSCULAR HEMOGLOBIN (BEAKER) (test bgcg=161) 29.1 pg 25.6-32.2 MEAN CORPUSCULAR HEMOGLOBIN CONC (BEAKER) (test lwkr=554) 32.5 GM/DL 32.2-35.5 RED CELL DISTRIBUTION WIDTH (BEAKER) (test jxxs=398) 16.6 % 11.7-14.4 PLATELET COUNT (BEAKER) (test fxka=072) 383 K/CU MM 150-450 MEAN PLATELET VOLUME (BEAKER) (test mkin=523) 10.4 fL 9.4-12.3 NUCLEATED RED BLOOD CELLS (BEAKER) (test yikl=730) 0 /100 WBC 0-0 NEUTROPHILS RELATIVE PERCENT (BEAKER) (test lkbs=061) 64 % LYMPHOCYTES RELATIVE PERCENT (BEAKER) (test whta=648) 30 % MONOCYTES RELATIVE PERCENT (BEAKER) (test hmxn=516) 4 % EOSINOPHILS RELATIVE PERCENT (BEAKER) (test oaqn=747) 1 % BASOPHILS RELATIVE PERCENT (BEAKER) (test xeeb=542) 1 % NEUTROPHILS ABSOLUTE COUNT (BEAKER) (test mvzw=026) 5.54 K/ L 1.56-6.13 LYMPHOCYTES ABSOLUTE COUNT (BEAKER) (test vboo=022) 2.59 K/ L 1.18-3.74 MONOCYTES ABSOLUTE COUNT (BEAKER) (test xdpx=240) 0.37 K/ L 0.24-0.36 EOSINOPHILS ABSOLUTE COUNT (BEAKER) (test lezg=995) 0.12 K/ L 0.04-0.36 BASOPHILS ABSOLUTE COUNT (BEAKER) (test znaa=549) 0.05 K/ L 0.01-0.08 IMMATURE GRANULOCYTES-RELATIVE PERCENT (BEAKER) (test ezkw=5780) 0 % 0-1 SCREEN, [id number] 10:28:00* Test Item Value Reference Range Comments TEST URINE (BEAKER) (test upmw=606) Negative ABDOMEN ACUTE SERIES W/PA CXR [place] [address] Patient Name: HOLLEY GAYLE MR #: [id number] : 1990 Age/Sex: 27/F Req #: [id number] Adm Physician: Ordered by: RG KWOK MD Report #: [id number] Location: ER Room/Bed: Procedure: [id number] DX/ABDOMEN ACUTE SERIES W/PA CXR Exam Date: 06/09/17 Exam Time: 1600 REPORT STATUS: Signed PROCEDURE: ABDOMEN ACUTE SERIES W/PA CXR COMPARISON: Ch est and abdominal series 08/29/2015 INDICATIONS: rlq pain FINDINGS: CHEST: Lungs are well-inflated and clear. No pneumothorax or pleural e ffusions. Cardiomediastinal silhouette is within normal limits. BOWEL PAT TERN: No abnormally distended air filled loops of large or small bowel. No ai r-fluid levels on upright view. SOFT TISSUES: Cholecystectomy clips projec t over the right upper quadrant. No free air under the diaphragm on upright v iew. Nonspecific rectangular 1.5 cm opacity projects over the right lower yung drant and may be external to the patient. A 0.9 cm round density projects ove r the pelvis and may represent calcified contents within stool. BONES: No acute bony abnormalities. CONCLUSION: 1. No acute thoracic abnor mality. 2. No evidence of bowel obstruction. Dictated by: Lauri Branham M.D. on 06/09/2017 at 16:27 Electronically approved by: Cynthia Branham M.D. on 06/09/2017 at 16:27 Dictated By: SHANIKA BRANHAM MD 26 Transcribed By: SUYAPA on 06/09/171626 COPY TO: RG KWOK MD CT ABDOMEN/PELVIS WO [place] [address] Patient Name: HOLLEY GAYLE MR #: [id number] : 1990 Age/Sex: 26/F Req #: [id number] Adm Physician: Ordered by: RG KWOK MD Report #: [id number] Location: ER Room/Bed: Procedure: [id number] CT/CT ABDOMEN/PELVIS WO Exam Date: 05/31/17 Exam Time: 1103 REPORT STATUS: Signed PROCEDURE: CT ABDOMEN AND PELVIS WITHOUT CONTRAST TECHNIQUE: The abdomen and pelvis were scanned utilizing a multidetector helical scanner from the diaphragm to the lesser trochanter without administration of contra st medium. Patient declined oral contrast. No IV contrast was administered p er physician request. Coronal and sagittal multiplanar reformations were obt ained. DLP: 675.02 COMPARISON: [facility], CT, CT ABDOMEN /PELVIS W, 10/01/2016, 2:50. INDICATIONS: Diffuse abdominal pain accompa nied by nausea and vomiting. FINDINGS: ABSENCE OF INTRAVENOUS CONTRA ST DECREASES SENSITIVITY FOR DETECTION OF FOCAL LESIONS AND VASCULAR PATHOLOG Y. LOWER THORAX: Bilateral dependent atelectasis. Small hiatal hernia. HEPATOBILIARY: No focal hepatic lesions. No biliary ductal dilatation. St atus post cholecystectomy. SPLEEN: No splenomegaly. PANCREAS: No focal katya s or ductal dilatation. ADRENALS: No adrenal nodules. KIDNEYS/URETERS: N o hydronephrosis, stones, or solid mass lesions. PELVIC ORGANS/BLADDER: Unrema rkable. PERITONEUM / RETROPERITONEUM: No free air or fluid. LYMPH NODES: No lymphadenopathy. VESSELS: Unremarkable. GI TRACT: No distention or w all thickening. The appendix is unremarkable. Medication capsules within the cecum. BONES AND SOFT TISSUES: Unremarkable. IMPRESSION: 1. no acute abdominopelvic abnormality. 2. Small hiatal hernia. 3. Stat us post cholecystectomy. No significant biliary dilatation. 4. Status pos t hysterectomy. Alisha Peña M.D. Dictated by: Alisha Peña M.D. on 05/31/2017 at 11:57 Electronically approved by: Alisha Peña M.D. on 05/31/2017 at 11:57 Dictated By: ANABELL PEÑA MD, MD 11 57 Transcribed By: SUYAPA on 05/31/17 2307 COPY TO: RG KWOK MD
[2018-09-13] MEDS ORDERED: ORPHENADRINE CITRATE 30 MG/ML VIAL IM ONE (05:00)
[2018-09-13] MEDS ORDERED: KETOROLAC TROMETHAMINE 60 MG/2 ML VIAL IM ONE (05:00)
[2018-09-13] MEDS ORDERED: HYDROCODONE/APAP 10MG-325MG TAB PO ONE (05:30)
[2018-09-13] MEDS ORDERED: ONDANSETRON HCL 4 MG ORAL DISINTEGRATING TAB PO ONE (05:45)
--- NOTE | 2018-09-13 05:52 | Diagnostic Imaging Report ---
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 FINDINGS: Bones: No acute displaced fracture. Status post resection of the distal ulna. Status post fusion of the distal radius, carpus, and base of the third metacarpal bone. Dorsal plate and screw construct. Additional pin fixates the scaphoid and capitate. Additional metallic densities within the distal radius. Joints: The distal radius and proximal carpal row. Soft tissues: Metallic surgical clips within the volar forearm soft tissues. IMPRESSION: 1. No acute radiographic abnormality. 2. Status post dorsal wrist fusion, no evidence of hardware failure. Signed by: Dr. Viral Cox D.O., M.M.M. on 09/13/2018 5:49 AM
[2018-09-13 06:21] VITALS: BP 139/96
== END 2018-09-13 06:34 | disposition home or self-care (01) ==
LOC: ER 04:38
DX: G89.11 Acute pain due to trauma (principal); M54.12 Radiculopathy, cervical region; G40.909 Epilepsy, unspecified, not intractable, without status epilepticus; F41.9 Anxiety disorder, unspecified; W03.XXXA Other fall on same level due to collision with another person, initial encounter; Y93.11 Activity, swimming; Y92.830 Public park as the place of occurrence of the external cause
CPT/HCPCS: 73030; 73080; 73090; 73110; 73130; 99284; J1885; J2360; Q0162

== ENCOUNTER 2019-01-05 07:36 | Observation (INO) | payer BC ==
[~2019-01-05] VITALS: Ht 154.9 cm; Wt 79.1 kg
[2019-01-05] MEDS ORDERED: SODIUM CHLORIDE 0.9% 1000ML 1,000 ML IV STA (07:47)
[2019-01-05] MEDS ORDERED: ONDANSETRON HCL INJ 2MG/ML 2ML 2 MG/ML VIAL IV STA (07:47)
[2019-01-05] MEDS ORDERED: MORPHINE SULFATE INJ 4 MG/ML INJ 1ML IV PRN (08:00)
[2019-01-05] MEDS ORDERED: SODIUM CHLORIDE 0.9% 1000ML 1,000 ML ONE ×2 (08:21→13:57)
[2019-01-05] MEDS ORDERED: MORPHINE SULFATE INJ 4 MG/ML INJ 1ML ONE ×3 (08:21→17:05)
[2019-01-05] MEDS ORDERED: ONDANSETRON HCL INJ 2MG/ML 2ML 2 MG/ML VIAL ONE ×2 (08:21→14:19)
[2019-01-05] MEDS ORDERED: IOPAMIDOL 370 MG/ML 200 ML INFUS..BTL INJ ONE (08:25)
[2019-01-05] MEDS ORDERED: SODIUM CHLORIDE 0.9% 50ML 50 ML ONE ×3 (08:29→17:06)
--- NOTE | 2019-01-05 09:07 | NUR ---
pt states that we will not be able to see her endometriosis on her CT scan and asked why were doing a scan, explained to her that we need to rule out emergent things as she is having pain and n/v.
[2019-01-05] MEDS ORDERED: FENTANYL CITRATE/PF 100MCG/2 ML INJ ONE (09:13)
[2019-01-05] MEDS ORDERED: FENTANYL CITRATE/PF 100MCG/2 ML INJ IV ONE ×2 (09:30→10:45)
[2019-01-05] MEDS ORDERED: ESCITALOPRAM OX20 MG (09:34)
[2019-01-05] MEDS ORDERED: LEVETIRACETAM1000 MG (09:34)
[2019-01-05] MEDS ORDERED: ONDANSETRON HCL4 MG (09:34)
[2019-01-05] MEDS ORDERED: LAMOTRIGINE100 MG PO (09:34)
[2019-01-05] MEDS ORDERED: ESTRADIOL1 EAC8 (09:34)
[2019-01-05] MEDS ORDERED: NORETHINDRONE AC5 MG (09:34)
[2019-01-05] MEDS ORDERED: SERTRALINE HCL100 MG (09:34)
[2019-01-05] MEDS ORDERED: LOPRESSOR25 MG (09:34)
[2019-01-05] MEDS ORDERED: XANAX2 MG (09:34)
[2019-01-05] MEDS ORDERED: HYDROXYZINE HCL50 MG (09:34)
[2019-01-05] MEDS ORDERED: GABAPENTIN100 MG (09:34)
[2019-01-05] MEDS ORDERED: ALPRAZOLAM2 MG (09:34)
[2019-01-05] MEDS ORDERED: PHENERGAN SUPP25 MG (09:34)
[2019-01-05] MEDS ORDERED: PROMETHAZINE HCL (IM) 25 MG/ML VIAL ONE ×2 (09:49→17:06)
[2019-01-05] MEDS ORDERED: PROMETHAZINE 25MG/ NS 50ML (IV) IV ONE (10:00)
--- NOTE | 2019-01-05 10:22 | Diagnostic Imaging Report ---
CT of the abdomen and pelvis, without contrast, 01/05/2019. History: Left-sided abdominal pain. Comparison: 2017. Technique: Multidetector CT scanning of the abdomen and pelvis was performed from the level of the lung bases to the inferior pubic rami without intravenous or oral contrast. Coronal and sagittal multiplanar reformations were obtained. RADIATION DOSE: Total DLP: 699 mGy*cm Dose modulation, iterative reconstruction, and/or weight based adjustment of the mA/kV was utilized to reduce the radiation dose to as low as reasonably achievable. Discussion: Examination is limited without contrast. Lung bases: No visualized abnormalities. Abdomen: Cholecystectomy clips are present. The liver, biliary tree, spleen, pancreas, adrenal glands, and kidneys are unremarkable. There is no evidence of nephrolithiasis or hydronephrosis. The abdominal aorta is within normal limits. A small hiatal hernia is present. There is no bowel dilatation. Surgical clips are noted adjacent to the cecum suggestive of prior appendectomy. There is no evidence of adenopathy or free fluid. A tiny fat-containing umbilical hernia is present. Pelvis: The bladder is unremarkable. The uterus and adnexa are absent. There is no evidence of free fluid or adenopathy. Bones and soft tissues: No acute abnormality. IMPRESSION: Small hiatal hernia. Status post cholecystectomy and hysterectomy. Otherwise unremarkable noncontrast exam. No evidence of nephrolithiasis. Signed by: Antonino Thompson on 01/05/2019 10:19 AM
[2019-01-05] MEDS ORDERED: LABETALOL HCL 5 MG/ML 20ML VIAL IV STA (10:31)
[2019-01-05] MEDS ORDERED: MORPHINE SULFATE 2 MG/ML SYR 1ML IV PRN (10:45)
[2019-01-05] MEDS ORDERED: PROMETHAZINE HCL (IM) 25 MG/ML VIAL IV PRN (10:45)
[2019-01-05] MEDS ORDERED: ONDANSETRON HCL INJ 2MG/ML 2ML 2 MG/ML VIAL IV PRN (10:45)
--- NOTE | 2019-01-05 10:55 | NUR ---
Pt is sleeping, arouses easily, pt is treated for her HTN. Pt c/o pain when she is awakened. Pt is sleeping and has no complaints
[2019-01-05] MEDS ORDERED: LABETALOL HCL 5 MG/ML 20ML VIAL IV ONE (12:00)
[2019-01-05] MEDS: MORPHINE SULFATE INJ 4 MG/ML INJ 1ML IV PRN ×2 (12:49→17:15)
[2019-01-05] MEDS: SODIUM CHLORIDE 0.9% 1000ML 1,000 ML IV SCH ×4 (14:21→21:54)
[2019-01-05] MEDS: PROMETHAZINE 12.5MG/ NACL 0.9% 50 ML IV PRN ×2 (17:10→21:15)
--- NOTE | 2019-01-05 17:56 | NUR ---
report to EB Mayers
[2019-01-05 18:55] VITALS: BP 144/86
[2019-01-05 20:02] VITALS: BP 144/86
[2019-01-05 20:08] VITALS: BP 144/86
[2019-01-05] MEDS: HYDROMORPHONE 1MG/1ML INJ IV PRN (21:15)
[2019-01-05 23:05] VITALS: BP 114/61
[2019-01-06 04:10] VITALS: BP 98/64
[2019-01-06] MEDS: PROMETHAZINE 12.5MG/ NACL 0.9% 50 ML IV PRN ×2 (05:30→09:33)
[2019-01-06] MEDS: HYDROMORPHONE 1MG/1ML INJ IV PRN ×2 (05:30→09:33)
[2019-01-06 07:51] VITALS: BP 164/89
[2019-01-06 08:20] LABS: BASOPHILS % 0.3 % (0.0-1.0); EOSINOPHILS # (AUTO) 0.2 (0.0-0.4); EOSINOPHILS % 2.6 % (0.0-6.0); HEMOGLOBIN 8.5 g/dL (12.0-16.0); LYMPHOCYTES # (AUTO) 2.8 (1.0-3.2); LYMPHOCYTES % 48.8 % (18.0-39.1); MEAN CORPUSCULAR HEMOGLOBIN 25.6 pg (28-32); MEAN CORPUSCULAR HGB CONC 30.4 g/dL (31-35); MEAN CORPUSCULAR VOLUME 84.3 fL (81-99); MONOCYTES # (AUTO) 0.4 (0.2-0.8); MONOCYTES % 6.5 % (4.4-11.3); NEUTROPHILS # (AUTO) 2.4 (2.1-6.9); NEUTROPHILS % 41.8 % (38.7-80.0); PLATELET COUNT 234 x10e3/uL (140-360); RED BLOOD COUNT 3.32 x10e6/uL (3.6-5.1); RED CELL DISTRIBUTION WIDTH 20.2 % (11.7-14.4)
[2019-01-06 08:26] VITALS: BP 164/89
[2019-01-06 08:42] LABS: ANION GAP 8.4 mmol/L (8-16); BLOOD UREA NITROGEN 5 mg/dL (7-26); BUN/CREATININE RATIO 9 (6-25); CALCIUM 8.8 mg/dL (8.4-10.2); CARBON DIOXIDE 27 mmol/L (22-29); CHLORIDE 105 mmol/L (98-107); CREATININE, SERUM 0.58 mg/dL (0.57-1.11); EST GLOMERULAR FILTRATION RATE > 60 ML/MIN (60-); GLUCOSE 75 mg/dL (74-118); POTASSIUM 3.4 mmol/L (3.5-5.1); SODIUM 137 mmol/L (136-145)
[2019-01-06 09:00] LABS: CHOL/HDL RATIO 3.2 (3.0-3.6)
[2019-01-06] MEDS ORDERED: LAMOTRIGINE 100 MG TAB PO SCH (09:00)
[2019-01-06] MEDS ORDERED: SERTRALINE HCL 100 MG TAB PO SCH (09:00)
[2019-01-06] MEDS ORDERED: METOPROLOL TARTRATE 25 MG TAB PO SCH (09:00)
[2019-01-06 09:42] LABS: BENZODIAZEPINES SCREEN,URINE POSITIVE (NEGATIVE)
[2019-01-06 09:43] LABS: AMPHETAMINES SCREEN,URINE NEGATIVE (NEGATIVE); PHENCYCLIDINE SCREEN,URINE NEGATIVE (NEGATIVE)
--- NOTE | 2019-01-06 10:30 | NUR ---
PATIENT STATED THAT SHE HAD TO LEAVE REGARDLESS OF NEEDED MEDICAL CARE DUE TO NEED OF CARING FOR HER DAUGHTER FOR WHOM NO ONE ELSE IS AVAILABLE TO CARE FOR, ALL OF HER RELATIVES ARE CURRENTLY AT WORK, NOTIFIED Jaun BABB
[2019-01-06 11:38] VITALS: BP 125/68
[2019-01-06] MEDS ORDERED: PHENERGAN25 MG/1 ML PO (12:00)
[2019-01-06] MEDS ORDERED: GABAPENTIN 100 MG CAP PO SCH (14:00)
== END 2019-01-06 13:09 | disposition home or self-care (01) ==
LOC: FSED 07:36 → ERHOLD 10:42 → IMCU 18:44
PROVIDERS: ADMIT Internal Medicine; ATTEND Internal Medicine
DX: R10.9 Unspecified abdominal pain (principal); I10 Essential (primary) hypertension; G89.29 Other chronic pain
CPT/HCPCS: 36415; 74176; 80048; 80053; 80061; 80307; 81003; 81025; 83036; 85025 ×2; 85610; 87086; 96374; 96375; 99284; G0378 ×2; J1170 ×2; J2270; J2405; J2550 ×2; J3010; J3490; J7030; Q9967

== ENCOUNTER 2019-05-10 16:41 | Emergency (ER) | payer BC ==
[~2019-05-10] VITALS: Ht 154.9 cm; Wt 77.8 kg
[~2019-05-10 16:41] MED LIST changes: +ALPRAZOLAM2 MG; +ESCITALOPRAM OX20 MG; +ESTRADIOL1 EAC8; +GABAPENTIN100 MG; +HYDROXYZINE HCL50 MG; +LAMOTRIGINE100 MG PO; +LEVETIRACETAM1000 MG; +LOPRESSOR25 MG; +NORETHINDRONE AC5 MG; +ONDANSETRON HCL4 MG; +PHENERGAN SUPP25 MG; +PHENERGAN25 MG/1 ML PO; +SERTRALINE HCL100 MG; +XANAX2 MG
--- OUTSIDE RECORDS SUMMARY | 2019-05-10 16:47 | XMS REPORT | Summary of Care ---
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 [address] Left lower quadrant abdominal pain (Primary Dx); Endometriosis 04/01/2019 Emergency [facility] [address] [place] [phone] Allergies No Known Allergiesdocumented as of this encounter (statuses as of 04/01/2019) Medications End Date Status Medication Sig Dispensed Refills Start Date Active ALPRAZOLAM ORAL Take by 0 mouth. Active escitalopram oxalate Take by 0 (LEXAPRO ORAL) mouth. Active HYDROXYZINE HCL ORAL Take by 0 mouth. Active lamotrigine (LAMICTAL Take by 0 ORAL) mouth. Active ondansetron 4 mg tablet Take 4 mg by 0 mouth every 8 (eight) hours as needed. Active traMADol (ULTRAM) 50 mg Take 1 tablet 10 tablet 0 tabletIndications: by mouth 9 Musculoskeletal strain every 6 (six) hours as needed (pain). Active proMETHazine 25 mg tablet Take 25 mg by 0 mouth every 4 (four) hours as needed. documented as of this encounter (statuses as of 04/01/2019) Active Problems Problem Noted Date Intractable abdominal pain 03/24/2019 Nausea & vomiting 02/14/2018 Obesity (BMI 30-39.9) 02/14/2018 documented as of this encounter (statuses as of 04/01/2019) Social History Date Tobacco Use Types Packs/Day Years Used Never Smoker Smokeless Tobacco: Never Used Drinks/Week oz/Week Comments Alcohol Use never used No Sex Assigned at Date Recorded Not on file Industry Job Start Date Occupation Not on file Not on file Not on file Travel End Travel History Travel Start No recent travel history available. documented as of this encounter Last Filed Vital Signs Reading Time Taken Comments Vital Sign 150/100 04/01/2019 8:47 PM [facility] Blood Pressure 91 04/01/2019 9:02 PM [facility] Pulse 37.7 C (99.8 F) 04/01/2019 8:47 PM [facility] Temperature 19 04/01/2019 8:47 PM [facility] Respiratory Rate 100% 04/01/2019 9:02 PM [facility] Oxygen Saturation - - Inhaled Oxygen Concentration 78 kg (172 lb) 04/01/2019 7:00 PM [facility] Weight 154.9 cm (5' 1") 04/01/2019 7:00 PM [facility] Height 32.5 04/01/2019 7:00 PM [facility] Body Mass Index documented in this encounter Discharge Instructions * Attachments The following attachments cannot be sent through Care Everywhere.* Abdominal Pain, Adult ([place]uneian) * Endometriosis ([place]) documented in this encounter Plan of Treatment Date/Time Name Type Priority Associated Diagnoses 04/01/2019 7:47 PM [facility] EXTRA TUBE LAV LAB ONLY STAT 04/01/2019 7:47 PM [facility] EXTRA TUBE LT. BLUE LAB ONLY STAT Order Schedule Name Type Priority Associated Diagnoses ONCE for 1 Occurrences starting 04/01/2019 until 04/01/2019 EXTRA TUBE LAV LAB ONLY Routine ONCE for 1 Occurrences starting 04/01/2019 until 04/01/2019 EXTRA TUBE LT. BLUE LAB ONLY Routine Health Maintenance Due Date Last Done Comments VARICELLA VACCINES (1 of 1989 2 - 2-dose childhood series) DTaP,Tdap,and Td Vaccines 06/03/1999 (1 - Tdap) PAP SMEAR 2009 INFLUENZA VACCINE (#1) 2018 PNEUMOCOCCAL 0-64 YEARS Aged Out No longer eligible based COMBINED SERIES on patient's age to complete this topic documented as of this encounter Procedures Comments Procedure Name Priority Date/Time Associated Diagnosis CBC WITH DIFFERENTIAL STAT 04/01/2019 Left lower quadrant 7:47 PM [facility] abdominal pain CBC WITH DIFFERENTIAL Routine 04/01/2019 Left lower quadrant 7:47 PM [facility] abdominal pain BASIC METABOLIC PANEL STAT 04/01/2019 Left lower quadrant (NA, K, CL, CO2, GLUCOSE, 7:47 PM [facility] abdominal pain BUN, CREATININE, CA) HEPATIC FUNCTION PANEL STAT 04/01/2019 Left lower quadrant (02086) (ALB,T.PRO,BILI 7:47 PM [facility] abdominal pain T,BU/BC,ALT,AST,ALK PHOS) LIPASE STAT 04/01/2019 Left lower quadrant 7:47 PM [facility] abdominal pain documented in this encounter Results * CBC WITH DIFFERENTIAL (04/01/2019 7:47 PM [facility]) WBC 13.43 (H) 4.30 - 11.10 [facility] 10*3/L [facility] RBC 3.97 3.93 - 5.25 10*6/L [facility] HGB 10.4 (L) 11.6 - 15.0 g/dL [facility] HCT 33.0 (L) 35.7 - 45.2 % [facility] MCV 83.1 80.6 - 95.5 fL [facility] MCH 26.2 25.9 - 32.8 pg [facility] MCHC 31.5 (L) 31.6 - 35.1 g/dL [facility] RDW-SD 59.4 (H) 39.0 - 49.9 fL [facility] RDW-CV 19.7 (H) 12.0 - 15.5 % [facility] PLT 411 (H) 166 - 358 10*3/L [facility] MPV 10.3 9.5 - 12.9 fL [facility] NRBC/100 WBC 0.0 0.0 - 10.0 /100 WBCs [facility] NRBC x10^3 <0.01 10*3/L [facility] GRAN MAT (NEUT) 79.8 % [facility] % 0.40 % [facility] LYMPH % 13.8 % [facility] MONO % 4.5 % [facility] EOS % 1.2 % [facility] BASO % 0.3 % [facility] GRAN MAT 10.72 (H) 1.88 - 7.09 10*3/uL [facility] x10^3(ANC) [facility] x10^3 0.05 0.00 - 0.06 10*3/uL [facility] LYMPH x10^3 1.86 1.32 - 3.29 10*3/uL [facility] MONO x10^3 0.60 0.33 - 0.92 10*3/uL [facility] EOS x10^3 0.16 0.03 - 0.39 10*3/uL [facility] BASO x10^3 0.04 0.01 - 0.07 10*3/uL [facility] Specimen Blood - VENOUS Performing Organization Address City/[facility] Phone Number [facility] CLIA: [id number], [address] [place] [address] [facility] * Lipase Serum (04/01/2019 7:47 PM [facility]) LIPASE 122 0 - 220 U/L [facility] Specimen Blood - VENOUS Performing Organization Address City/[facility] Phone Number [facility] CLIA: [id number], [address] [place] [address] [facility] * Hepatic Function Panel (ALB, T.PRO, BILI T, BU/BC, ALT, AST, ALK PHOS) (04/01/2019 7:47 PM [facility]) TOTAL BILI 0.3 0.1 - 1.1 mg/dL [facility] BILI UNCON 0.2 0.1 - 1.1 mg/dL [facility] BILI CONJ 0.0 0.0 - 0.3 mg/dL [facility] T PROTEIN 7.8 6.3 - 8.2 g/dL [facility] ALBUMIN 4.6 3.5 - 5.0 g/dL [facility] ALK PHOS 95 34 - 122 U/L [facility] ALTv 45 (H) 5 - 35 U/L [facility] AST(SGOT) 19 13 - 40 U/L [facility] Specimen Blood - VENOUS Performing Organization Address City/State/Zipcode Phone Number [facility] CLIA: [id number], [address] [place] [address] [facility] * Basic Metabolic Panel (NA, K, CL, CO2, GLUCOSE, BUN, CREATININE, CA) (04/01/2019 7:47 PM [facility]) NA 139 135 - 145 mmol/L [facility] K 3.9 3.5 - 5.0 mmol/L [facility] CL 101 98 - 108 mmol/L [facility] CO2 TOTAL 26 23 - 31 mmol/L [facility] AGAP 12 2 - 16 [facility] BUN 11 7 - 23 mg/dL [facility] GLUCOSE 101 70 - 110 mg/dL [facility] CREATININE 0.54 0.50 - 1.04 mg/dL [facility] CALCIUM 9.5 8.6 - 10.6 mg/dL [facility] eGFR 132.6 mL/min/1.73m2 [facility] Calculation [facility] ([facility]) eGFR 160.7 mL/min/1.73m2 [facility] Calculation [facility] ([facility]) Specimen Blood - VENOUS Narrative Performed At Association of Glomerular Filtration Rate (GFR) and Staging of Kidney Disease* [facility] + + + + SERVICES- [facility] | GFR (mL/min/1.73 m2) | With Kidney Damage | Without Kidney Damage CAMPUS + + + + | >90 | Stage one | Normal + + + + | 60-89 | Stage two | Decreased GFR + + + + | 30-59 | Stage three | Stage three + + + + | 15-29 | Stage four | Stage four + + + + | <15 (or dialysis) | Stage five | Stage five + + + + *Each stage assumes the associated GFR level has been in effect for at least three months. Stages 1 to 5, with or without kidney disease, indicate chronic kidney disease. Notes: Determination of stages one and two (with eGFR >59mL/min/1.73 m2) requires estimation of kidney damage for at least three months as defined by structural or functional abnormalities of the kidney, manifested by either: Pathological abnormalities or Markers of kidney damage (including abnormalities in the composition of the blood or urine or abnormalities in imaging tests). Performing Organization Address City/State/Zipcode Phone Number [facility] CLIA: [id number], [address] [place] [address] [facility] documented in this encounter Visit Diagnoses Diagnosis Left lower quadrant abdominal pain - Primary Endometriosis Endometriosis, site unspecified documented in this encounter Administered Medications Action Date Dose Rate Site Medication Order MAR Action 04/01/2019 7:48 PM [facility] 4 mg morpHINE injection 4 mg Given 4 mg, Slow IV Push, ONCE, 1 dose, 04/01/19 at 2030, STAT 04/01/2019 8:43 PM [facility] 6 mg morpHINE injection 6 mg Given 6 mg, Slow IV Push, ONCE, 1 dose, 04/01/19 at 2130, STAT 04/01/2019 7:48 PM [facility] 1,000 mL 999 mL/hr NaCl 0.9% (NS) bolus infusion 1,000 mL New Bag at 999 mL/hr, 1,000 mL, IV Infusion, ONCE, 1 dose, 04/01/19 at 1930, ALYX 04/01/2019 7:48 PM [facility] 4 mg ondansetron (ZOFRAN (PF)) injection 4 mg Given 4 mg, Slow IV Push, Administer over 15 Minutes, ONCE, 1 dose, 04/01/19 at 1930, STAT documented in this encounter Insurance Type Payer Benefit Subscriber ID Effective Phone Address Plan / Dates Group P[place] [id number] [id number] [phone] [address] [facility] [id number] [place] [address] documented as of this encounter
--- OUTSIDE RECORDS SUMMARY | 2019-05-10 16:47 | XMS REPORT | Summary of Care ---
Author Author [facility] - Health Organization [facility] - Health Address Unknown Phone Unavailable Care Team Providers Care [employer] Worker Name Role Phone Yoni Higgins PCP Reason for Referral * (Routine) Referred By Contact Referred To Contact Status Reason Specialty Diagnoses / Procedures Valentin Ng MD [address] [place] [address] New Request OB-GYNECOLOGY Diagnoses Left lower quadrant abdominal pain P rocedures Discharge Follow-Up: Specialty Service OB-GYNECOLOGY; Other - See Comment (Today) * MRI/CAT Scan (STAT) Referred By Contact Referred To Contact Status Reason Specialty Diagnoses / Procedures Carolin Venegas DO [address] [facility] [address] [address] New Request Diagnostic Diagnoses Radiology Left lower quadrant abdominal pain P rocedures CT ABDOMEN PELVIS WO CONTRAST CT ABDOMEN PELVIS W CONTRAST * Radiology Services (STAT) Referred By Contact Referred To Contact Status Reason Specialty Diagnoses / Procedures Carolin Venegas DO [address] [facility] [address] [address] New Request Diagnostic Diagnoses Radiology Left lower quadrant abdominal pain P rocedures Chest 1 View Reason for Visit * Reason Comments Abdominal Pain * Auth/Cert Referred By Contact Referred To Contact Status Reason Specialty Diagnoses / Procedures [facility] Emergency Dept [address] [place] [id number] Emergency Medicine Encounter Details Care Team Description Date Type Department Carolin Venegas DO [address] [facility] [address] [address] Kimmy Sparrow MD [address] [id number] Valentin Ng MD [address] [place] [address] [phone] Dehydration 04/02/2019 Emergency [facility] Health - Medicine/Surgery CLC 6A 04/03/[address] [place] [address] Allergies Comments Active Allergy Reactions Severity Noted Date Dizzy Dizzy Codeine Hives Medium 01/31/2019 documented as of this encounter (statuses as of 04/03/2019) Medications End Date Status Medication Sig Dispensed [...] mouth every 4 (four) hours as needed. Active levETIRAcetam (KEPPRA) Take 750 mg 0 750 mg tablet by mouth 2 (two) times daily. Active ketorolac 10 mg tablet Take 20 mg by 0 mouth every 6 (six) hours as needed for Pain (scale 4-6). Active omeprazole 40 mg capsule Take 40 mg by 0 mouth 2 (two) times daily. Active pantoprazole 40 mg EC Take 1 tablet 30 tablet 0 tabletIndications: Left by mouth 0 lower quadrant abdominal daily. pain documented as of this encounter (statuses as of 04/03/2019) Active Problems Problem Noted Date Dehydration 04/02/2019 Intractable abdominal pain 03/24/2019 Nausea & vomiting 02/14/2018 Obesity (BMI 30-39.9) 02/14/2018 documented as of this encounter (statuses as of 04/03/2019) Social History Date Tobacco Use Types Packs/Day [...] Signs Reading Time Taken Comments Vital Sign 169/97 04/03/2019 11:00 AM PLASTICS NURSE Blood Pressure 59 04/03/2019 11:00 AM PLASTICS NURSE Pulse 36.7 C (98 F) 04/03/2019 11:00 AM PLASTICS NURSE Temperature 18 04/03/2019 11:00 AM PLASTICS NURSE Respiratory Rate 98% 04/03/2019 11:00 AM PLASTICS NURSE Oxygen Saturation - - Inhaled Oxygen Concentration 80.7 kg (178 lb) 04/02/2019 7:16 AM PLASTICS NURSE Weight 154.9 cm (5' 1") 04/02/2019 7:16 AM PLASTICS NURSE Height 33.63 04/02/2019 7:16 AM PLASTICS NURSE Body Mass Index documented in this encounter Discharge Summaries * Valentin Ng MD - 04/03/2019 11:18 AM PLASTICS NURSE Red Team Service Date of Service: 04/03/2019 ADMIT DATE: 04/02/2019 DISCHARGE DATE: 04/03/2019 ATTENDING MD: Valentin Ng MD REASON FOR ADMISSION Abdominal pain FINAL DIAGNOSIS: (the reason, after study, for admitting the patient to the hosp ital) Endometriosis SECONDARY DIAGNOSIS: (any diagnosis that, on this admission, required clinical e valuation, therapeutic treatment, diagnostic procedures, extended hospital stay, or additional nursing care/monitoring) None Active Problems: Dehydration (04/02/2019) POA: Yes Resolved Problems: * No resolved hospital problems. * No orders of the defined types were placed in this encounter. Current Facility-Administered Medications: acetaminophen (TYLENOL) tablet 650 mg, 650 mg, Oral, Q6HPRN, Kimmy Sparrow M D ALPRAZolam (XANAX) tablet 0.25 mg, 0.25 mg, Oral, TIDPRN, Kimmy Sparrow MD, 0.25 mg at 04/03/19 0934 enoxaparin (LOVENOX) injection 40 mg, 40 mg, Subcutaneous, DAILY, Sly Sparrow MD, 40 mg at 04/03/19 0900 lamoTRIgine (LAMICTAL) tablet 100 mg, 100 mg, Oral, DAILY, Kimmy Sparrow MD, 100 mg at 04/03/19 0927 morpHINE injection 4 mg, 4 mg, Slow IV Push, Q4HPRN, Kimmy Sparrow MD, 4 mg at 04/03/19 1001 NaCl 0.9% (NS) IV infusion 1,000 mL, 1,000 mL, Intravenous, CONTINUOUS, Kimmy Resendiz MD, Last Rate: 150 mL/hr at 04/03/19 0616, 1,000 mL at 04/03/19 0616 ondansetron (ZOFRAN (PF)) injection 4 mg, 4 mg, Slow IV Push, Q8H, Cameron Sparrow MD, 4 mg at 04/03/19 0610 pantoprazole (PROTONIX) EC tablet 40 mg, 40 mg, Oral, DAILY, Kimmy Sparrow M D, 40 mg at 04/03/19 0927 proMETHazine (PHENERGAN) 25 mg in NaCl 0.9% (NS) 50 mL piggyback, 25 mg, IV Piggyback, Q4HPRN, Kimmy Sparrow MD traMADol (ULTRAM) tablet 50 mg, 50 mg, Oral, Q6HPRN, Kimmy Sparrow MD, 50 mg at 04/03/19 0431 SIGNIFICANT LAB/X-RAYS: Lab results: CBC BMP PT/INR WBC (10*3/L) Date Value 04/02/2019 7.04 NA (mmol/L) Date Value 04/03/2019 136 No results found for: PT RBC (10*6/L) Date Value 04/02/2019 3.73 (L) K (mmol/L) Date Value 04/03/2019 3.9 INR (no units) Date Value 04/02/2019 1.0 PLT (10*3/L) Date Value 04/02/2019 397 (H) CALCIUM (mg/dL) Date Value 04/03/2019 8.1 (L) HGB (g/dL) Date Value 04/02/2019 9.8 (L) CL (mmol/L) Date Value 04/03/2019 108 aPTT HCT (%) Date Value 04/02/2019 30.8 (L) BUN (mg/dL) Date Value 04/03/2019 4 (L) APTT Patient (Seconds) Date Value 04/02/2019 32 CREATININE (mg/dL) Date Value 04/03/2019 0.41 (L) GLUCOSE (mg/dL) Date Value 04/03/2019 71 CO2 TOTAL (mmol/L) Date Value 04/03/2019 21 (L) Other lab results: None X-ray results: Ct Abdomen Pelvis Wo Contrast Result Date: 04/02/2019 1. No acute abnormality of the abdomen or pelvis. Us Pelvis Complete With Transvaginal Result Date: 03/24/2019 1. Status post hysterectomy. 2. No adnexal mass identified. 3. No free fluid. HOSPITAL COURSE: Endometriosis Abd pain Nausea Vomiting Diarrhea Admit/obs IV fluids IV pain meds Schedule toradol IV antiemetics Restart home anxiety meds Has appointment with gynecology tomorrow afternoon for colectomy planning. May discharge if pain level acceptable to follow up outpatient. FUNCTIONAL STATUS: fully ambulatory DISCHARGE CONDITION: good COGNITIVE STATUS: cognitively intact DIET: regular ACTIVITY: as tolerated DISCHARGE MEDICATIONS: Current Discharge Medication List START taking these medications Details pantoprazole (PROTONIX) 40 mg Take 40 mg by mouth daily. Qty: 30 tablet, Refills: 0 Start date: 04/04/2019 Associated Diagnoses: Left lower quadrant abdominal pain CONTINUE these medications which have NOT CHANGED Details ketorolac (TORADOL) 20 mg Take 20 mg by mouth every 6 (six) hours as needed for Pain (scale 4-6). levETIRAcetam (KEPPRA) 750 mg Take 750 mg by mouth 2 (two) times daily. omeprazole (PRILOSEC) 40 mg Take 40 mg by mouth 2 (two) times daily. proMETHazine (PHENERGAN) 25 mg Take 25 mg by mouth every 4 (four) hours as neede d. traMADol (ULTRAM) 50 mg Take 50 mg by mouth every 6 (six) hours as needed (pain) . Qty: 10 tablet, Refills: 0 Associated Diagnoses: Musculoskeletal strain ALPRAZOLAM ORAL Take by mouth. escitalopram oxalate (LEXAPRO ORAL) Take by mouth. HYDROXYZINE HCL ORAL Take by mouth. lamotrigine (LAMICTAL ORAL) Take by mouth. ondansetron (ZOFRAN) 4 mg Take 4 mg by mouth every 8 (eight) hours as needed. ANTIBIOTICS: Did this patient receive antibiotics during this admission, or is he/sh being di scharged with antibiotics? No Was the patient given education on antibiotic indication, duration, and adverse effects? WOUND CARE: none CODE STATUS: full code OXYGEN (is patient being discharged on oxygen): no CORE MEASURES: None PATIENT EDUCATION PROVIDED: medications DISCHARGE: home self care FOLLOW-UP APPOINTMENT: Follow up with gynecology today at noon PLAN FOR READMISSION: No Dr. Valentin Ng [phone] TICS NURSE documented in this encounter Discharge Instructions * Attachments The following attachments cannot be sent through Care Everywhere.* Pantoprazole tablets (Irish) * Abdominal Pain, Adult (Irish) * Dehydration (Irish) documented in this encounter Plan of Treatment Order Schedule Name Type Priority Associated Diagnoses STAT for 1 Occurrences starting 04/02/2019 until 04/02/2019 Urinalysis LAB STAT Left lower quadrant abdominal pain Health Maintenance Due Date Last Done Comments VARICELLA VACCINES (1 of 1989 2 - 2-dose childhood series) DTaP,Tdap,and Td Vaccines 06/03/1999 (1 - Tdap) PAP SMEAR 2009 INFLUENZA VACCINE (#1) 2018 PNEUMOCOCCAL 0-64 YEARS Aged Out No longer eligible based COMBINED SERIES on patient's age to complete this topic documented as of this encounter Procedures Comments Procedure Name Priority Date/Time Associated Diagnosis BASIC METABOLIC PANEL Routine 04/03/2019 (NA, K, CL, CO2, GLUCOSE, 6:00 AM PLASTICS NURSE BUN, CREATININE, CA) MAGNESIUM Routine 04/03/2019 6:[address] ABDOMEN PELVIS WO STAT 04/02/2019 Left lower quadrant CONTRAST 8:52 AM PLASTICS NURSE abdominal pain XR CHEST 1 VW STAT 04/02/2019 Left lower quadrant 8:51 AM PLASTICS NURSE abdominal pain POCT TEST ALYX 04/02/2019 Left lower quadrant 8:12 AM PLASTICS NURSE abdominal pain CBC WITH DIFFERENTIAL STAT 04/02/2019 Left lower quadrant 7:52 AM PLASTICS NURSE abdominal pain N-TERMINAL PRO-BNP STAT 04/02/2019 Left lower quadrant 7:52 AM PLASTICS NURSE abdominal pain ACTIVATED PARTIAL STAT 04/02/2019 Left lower quadrant THRMPLAS BIJU 7:52 AM PLASTICS NURSE abdominal pain PROTHROMBIN TIME / INR STAT 04/02/2019 Left lower quadrant 7:52 AM PLASTICS NURSE abdominal pain CBC WITH DIFFERENTIAL Routine 04/02/2019 Left lower quadrant 7:52 AM PLASTICS NURSE abdominal pain BASIC METABOLIC PANEL STAT 04/02/2019 Left lower quadrant (NA, K, CL, CO2, GLUCOSE, 7:52 AM PLASTICS NURSE abdominal pain BUN, CREATININE, CA) HEPATIC FUNCTION PANEL STAT 04/02/2019 Left lower quadrant (38099) (ALB,T.PRO,BILI 7:52 AM PLASTICS NURSE abdominal pain T,BU/BC,ALT,AST,ALK PHOS) TROPONIN I STAT 04/02/2019 Left lower quadrant 7:52 AM PLASTICS NURSE abdominal pain LIPASE STAT 04/02/2019 Left lower quadrant 7:52 AM PLASTICS NURSE abdominal pain EKG-12 LEAD STAT 04/02/2019 7:25 AM PLASTICS NURSE documented in this encounter Results * Magnesium Serum (04/03/2019 6:00 AM PLASTICS NURSE) MAGNESIUM 1.6 (L) 1.7 - 2.4 mg/dL [facility] Specimen Blood - HAND, LEFT Performing Organization Address City/State/Zipcode Phone Number [facility] CLIA: [id number], [address] [place] [address] [facility] * Basic Metabolic Panel (NA, K, CL, CO2, GLUCOSE, BUN, CREATININE, CA) (04/03/2019 6:00 AM PLASTICS NURSE) NA 136 135 - 145 mmol/L [facility] K 3.9 3.5 - 5.0 mmol/L [facility] CL 108 98 - 108 mmol/L [facility] CO2 TOTAL 21 (L) 23 - 31 mmol/L [facility] AGAP 7 2 - 16 [facility] BUN 4 (L) 7 - 23 mg/dL [facility] GLUCOSE 71 70 - 110 mg/dL [facility] CREATININE 0.41 (L) 0.50 - 1.04 mg/dL [facility] CALCIUM 8.1 (L) 8.6 - 10.6 mg/dL [facility] eGFR 182.2 mL/min/1.73m2 [facility] Calculation [facility] ([facility] Portuguese) eGFR 220.8 mL/min/1.73m2 [facility] Calculation [facility] ([facility]) Specimen Blood - HAND, LEFT Narrative Performed At Association of Glomerular Filtration Rate (GFR) and Staging of Kidney Disease* [facility] + + + + [facility] | GFR (mL/min/1.73 m2) | With Kidney [...] tests). Performing Organization Address City/State/Zipcode Phone Number [facility] CLIA: [id number], [address] [place] [address] [facility] * CT ABDOMEN PELVIS WO CONTRAST (04/02/2019 8:52 AM PLASTICS NURSE) Specimen Impressions Performed At 1. No acute abnormality of the abdomen or pelvis. PACS/VR/DOSE Narrative Performed At EXAM: CT scan of the abdomen and pelvis without contrast PACS/VR/DOSE HISTORY: Abd pain, diverticulitis suspected Nausea, vomiting Bowel obstruction, high-grade Abd pain, acute, generalized; TECHNIQUE:3.75 mm axial images are obtained from diaphragmatic domes to symphysis pubis without oral or intravenous contrast. Sagittal and coronal reformation is carried out. COMPARISON: 05/12/2018 Radiation Dose:DLP of 769 mGy-cm. FINDINGS: The lung bases are clear. No pleural effusion is present. Heart size is normal. Liver, spleen, pancreas, adrenal glands and kidneys are normal. Gallbladder is removed. No biliary tree dilation is appreciated. Abdominal aorta is normal in caliber. No free fluid or free air is seen in the abdomen. No enlarged lymph nodes are noted in the retroperitoneum. There is no evidence of bowel obstruction. Normal amount of stool is seen in the colon. The appendix is not visualized, however there is no indirect evidence of appendicitis. The uterus is removed. Urinary bladder is grossly normal. No suspicious abnormality of the bones is seen. Procedure Note [facility], Radiant Results Inft User - 04/02/2019 9:13 AM PLASTICS NURSE EXAM: CT scan of the abdomen and pelvis without contrast HISTORY: Abd pain, diverticulitis suspected Nausea, vomiting Bowel obstruction, high-grade Abd pain, acute, generalized; TECHNIQUE:3.75 mm axial images are obtained from diaphragmatic domes to symphysis pubis without oral or intravenous contrast. Sagittal and coronal reformation is carried out. COMPARISON: 05/12/2018 Radiation Dose:DLP of 769 mGy-cm. FINDINGS: The lung bases are clear. No pleural effusion is present. Heart size is normal. Liver, spleen, pancreas, adrenal glands and kidneys are normal. Gallbladder is removed. No biliary tree dilation is appreciated. Abdominal aorta is normal in caliber. No free fluid or free air is seen in the abdomen. No enlarged lymph nodes are noted in the retroperitoneum. There is no evidence of bowel obstruction. Normal amount of stool is seen in the colon. The appendix is not visualized, however there is no indirect evidence of appendicitis. The uterus is removed. Urinary bladder is grossly normal. No suspicious abnormality of the bones is seen. IMPRESSION 1. No acute abnormality of the abdomen or pelvis. Performing Organization Address City/State/Zipcode Phone Number PACS/VR/DOSE * Chest 1 View (04/02/2019 8:51 AM PLASTICS NURSE) Specimen Narrative Performed At CHEST ONE VIEW PACS/VR/DOSE HISTORY: Abdomen pain TECHNIQUE: AP view of the chest is obtained. FINDINGS: Lungs are clear. Heart size and mediastinal silhouette are normal. No pleural effusion or pneumothorax is seen. CONCLUSIONS: No acute cardiopulmonary disease. Procedure Note [facility], Radiant Results Inft User - 04/02/2019 9:09 AM PLASTICS NURSE CHEST ONE VIEW HISTORY: Abdomen pain TECHNIQUE: AP view of the chest is obtained. FINDINGS: Lungs are clear. Heart size and mediastinal silhouette are normal. No pleural effusion or pneumothorax is seen. CONCLUSIONS: No acute cardiopulmonary disease. Performing Organization Address City/State/Zipcode Phone Number PACS/VR/DOSE * POCT Test, Urine (04/02/2019 8:12 AM PLASTICS NURSE) POCT PREG negative Specimen Urine - URINE, CLEAN CATCH * CBC WITH DIFFERENTIAL (04/02/2019 7:52 AM PLASTICS NURSE) WBC 7.04 4.30 - 11.10 [facility] 10*3/L [facility] RBC 3.73 (L) 3.93 - 5.25 10*6/L [facility] HGB 9.8 (L) 11.6 - 15.0 g/dL [facility] HCT 30.8 (L) 35.7 - 45.2 % [facility] MCV 82.6 80.6 - 95.5 fL [facility] MCH 26.3 25.9 - 32.8 pg [facility] MCHC 31.8 31.6 - 35.1 g/dL [facility] RDW-SD 58.6 (H) 39.0 - 49.9 fL [facility] RDW-CV 19.5 (H) 12.0 - 15.5 % [facility] PLT 397 (H) 166 - 358 10*3/L [facility] MPV 10.5 9.5 - 12.9 fL [facility] NRBC/100 WBC 0.0 0.0 - 10.0 /100 WBCs [facility] NRBC x10^3 <0.01 10*3/L [facility] GRAN MAT (NEUT) 64.2 % [facility] IMM GRAN % 0.30 % [facility] LYMPH % 27.0 % [facility] MONO % 5.3 % [facility] EOS % 2.8 % [facility] BASO % 0.4 % [facility] GRAN MAT 4.52 1.88 - 7.09 10*3/uL [facility] x10^3(ANC) [facility] IMM GRAN x10^3 <0.03 0.00 - 0.06 10*3/uL [facility] LYMPH x10^3 1.90 1.32 - 3.29 10*3/uL [facility] MONO x10^3 0.37 0.33 - 0.92 10*3/uL [facility] EOS x10^3 0.20 0.03 - 0.39 10*3/uL [facility] BASO x10^3 0.03 0.01 - 0.07 10*3/uL [facility] Specimen Blood - FOOT, RIGHT Performing Organization Address City/[facility] [email or web address] Phone Number [facility] CLIA: [id number], [address] [place], [place] [address] [facility] * N-TERMINAL PRO-BNP (04/02/2019 7:52 AM PLASTICS NURSE) NT-proBNP 77 <=125 pg/mL [facility] Specimen Blood - FOOT, RIGHT Narrative Performed At Biotin has been reported to cause a negative bias, interpret results relative to [facility] patient's use of biotin. [facility] Performing Organization Address City/State/[facility] [email or web address] Phone Number [facility] CLIA: [id number], [address] [place] [address] [facility] * Prothrombin Time (PT) / INR (04/02/2019 7:52 AM PLASTICS NURSE) PROTIME PATIENT 10.5 10.1 - 12.6 Seconds [facility] INR 1.0Comment: Normal INR <1.1; [facility] Warfarin Therapeutic range 2.0 [facility] to 3.0 or 2.5 to 3.5, [facility] depending upon the indications. Specimen Blood - FOOT, RIGHT Performing Organization Address [facility] [email or web address] Phone Number [facility] CLIA: [id number], [address] [place] [address] [facility] * aPTT (04/02/2019 7:52 AM PLASTICS NURSE) Pathologist [facility] APTT Patient 32 26 - 36 Seconds [facility] Specimen Blood - FOOT, RIGHT Performing Organization Address [facility] Phone Number [facility] CLIA: [id number], [address] [place] [address] [facility] * Troponin I (04/02/2019 7:52 AM PLASTICS NURSE) Pathologist [facility] Emergency Department TROPONIN I 0.004 <=0.034 ng/mL [facility] Specimen Blood - FOOT, RIGHT Narrative Performed At Equal or Less than 0.034 ng/ml---Normal [facility] Note: Cardiac troponin begins to rise 3-4 hours after the onset of ischemia. [facility] Repeat in 4-6 hours if the sample was drawn within 3-4 hours of the onset of the CAMPUS symptom and found normal. Between 0.035 and 0.120 ng/mL--- Borderline. Questionable myocardial injury or necrosis Note: Serial measurement may be necessary to confirm or exclude the diagnosis of myocardial injury or necrosis; Clinical correlation (symptoms, EKGs, imaging studies, and others) required; Repeat in 4-6 hours if clinically indicated. Equal or Higher than 0.121 ng/mL---Abnormal. Myocardial Injury or Necrosis Likely Biotin has been reported to cause a negative bias, interpret results relative to patient's use of biotin. Performing Organization Address City/[facility]/Zipcode Phone Number [facility] CLIA: [id number], [address] [place] [address] [facility] * Lipase Serum (04/02/2019 7:52 AM PLASTICS NURSE) LIPASE 141 0 - 220 U/L [facility] Specimen Blood - FOOT, RIGHT Performing Organization Address [facility] [email or web address] Phone Number [facility] CLIA: [id number], [address] [place], [place] [address] [facility] * Hepatic Function Panel (ALB, T.PRO, BILI T, BU/BC, ALT, AST, ALK PHOS) (04/02/2019 7:52 AM PLASTICS NURSE) TOTAL BILI 0.5 0.1 - 1.1 mg/dL [facility] BILI UNCON 0.4 0.1 - 1.1 mg/dL [facility] BILI CONJ 0.0 0.0 - 0.3 mg/dL [facility] T PROTEIN 7.3 6.3 - 8.2 g/dL [facility] ALBUMIN 4.1 3.5 - 5.0 g/dL [facility] ALK PHOS 131 (H) 34 - 122 U/L [facility] ALTv 82 (H) 5 - 35 U/L [facility] AST(SGOT) 66 (H) 13 - 40 U/L [facility] Specimen Blood - FOOT, RIGHT Performing Organization Address [facility] [email or web address] Phone Number [facility] CLIA: [id number], [address] [place], [place] [address] [facility] * Basic Metabolic Panel (NA, K, CL, CO2, GLUCOSE, BUN, CREATININE, CA) (04/02/2019 7:52 AM PLASTICS NURSE) NA 137 135 - 145 mmol/L [facility] K 4.3Comment: Slight hemolysis 3.5 - 5.0 mmol/L [facility] CL 103 98 - 108 mmol/L [facility] CO2 TOTAL 24 23 - 31 mmol/L [facility] AGAP 10 2 - 16 [facility] BUN 7Comment: Slight hemolysis 7 - 23 mg/dL [facility] GLUCOSE 91 70 - 110 mg/dL [facility] CREATININE 0.46 (L) 0.50 - 1.04 mg/dL [facility] CALCIUM 9.2 8.6 - 10.6 mg/dL [facility] eGFR 159.5 mL/min/1.73m2 [facility] Calculation [facility] ([facility] [facility]) eGFR 193.3 mL/min/1.73m2 [facility] Calculation [facility] ([facility]) Specimen Blood - FOOT, RIGHT Narrative Performed At Association of Glomerular Filtration Rate (GFR) and Staging of Kidney Disease* [facility] + + + + [facility] | GFR (mL/min/1.73 m2) | With Kidney [...] tests). Performing Organization Address City/State/Zipcode Phone Number [facility] CLIA: [id number], [address] [place] [address] [facility] documented in this encounter Visit Diagnoses Diagnosis Left lower quadrant abdominal pain - Primary Nausea and vomiting, intractability of vomiting not specified, unspecified vomiting type Dehydration documented in this encounter Administered Medications Action Date Dose Rate Site Medication Order MAR Action 04/03/2019 9:34 AM PLASTICS NURSE 0.25 mg ALPRAZolam (XANAX) tablet 0.25 mg Given 0.25 mg, Oral, TIDPRN, Starting 04/02/19 at 1322, Until Discontinued, Routine, anxiety 0.25 mg Given 04/02/2019 8:38 PM PLASTICS NURSE 04/03/2019 9:00 AM PLASTICS NURSE 40 mg Abdomen-SC enoxaparin (LOVENOX) injection 40 mg Given 40 mg, Subcutaneous, DAILY, First dose on Wed04/03/19 at 0900, Until Discontinued, Routine 04/03/2019 9:27 AM PLASTICS NURSE 100 mg lamoTRIgine (LAMICTAL) tablet 100 mg Given 100 mg, Oral, DAILY, First dose on Wed04/02/19 at 1330, Until Discontinued, Routine 100 mg Given 04/02/2019 3:16 PM PLASTICS NURSE 04/03/2019 10:01 AM PLASTICS NURSE 4 mg morpHINE injection 4 mg Given 4 mg, Slow IV Push, Q4HPRN, Starting Wed04/02/19 at 1041, Until Discontinued, Routine, Pain (scale 7-10) 4 mg Given 04/03/2019 6:09 AM PLASTICS NURSE 4 mg Given 04/03/2019 2:01 AM PLASTICS NURSE 04/03/2019 6:16 AM PLASTICS NURSE 1,000 mL 150 mL/hr NaCl 0.9% (NS) IV infusion 1,000 mL New Bag at 150 mL/hr, Intravenous, CONTINUOUS, Starting 04/02/19 at 1145, Until Discontinued, Routine 1,000 mL 150 mL/hr New Bag 04/03/2019 12:15 AM PLASTICS NURSE 1,000 mL 150 mL/hr New Bag 04/02/2019 5:24 PM PLASTICS NURSE 04/03/2019 6:10 AM PLASTICS NURSE 4 mg ondansetron (ZOFRAN (PF)) injection 4 mg Given 4 mg, Slow IV Push, Q8H, First dose on Wed04/02/19 at 1400, Until Discontinued, Routine 4 mg Given 04/02/2019 10:09 PM PLASTICS NURSE 4 mg Given 04/02/2019 3:16 PM PLASTICS NURSE 04/03/2019 9:27 AM PLASTICS NURSE 40 mg pantoprazole (PROTONIX) EC tablet 40 mg Given 40 mg, Oral, DAILY, First dose on Wed04/02/19 at 1645, Until Discontinued, Routine 40 mg Given 04/02/2019 5:24 PM PLASTICS NURSE 04/03/2019 4:31 AM PLASTICS NURSE 50 mg traMADol (ULTRAM) tablet 50 mg Given 50 mg, Oral, Q6HPRN, Starting Wed04/02/19 at 1321, Until Discontinued, Routine, Pain (scale 4-6) 50 mg Given 04/02/2019 10:09 PM PLASTICS NURSE 50 mg Given 04/02/2019 4:02 PM PLASTICS NURSE Action Date Dose Rate Site Medication Order MAR Action 04/02/2019 7:56 AM PLASTICS NURSE 50 mcg Right Foot FENTanyl PF (SUBLIMAZE (PF)) injection Given 50 mcg 50 mcg, Slow IV Push, ONCE, 1 dose, 04/02/19 at 0830, Routine 04/03/2019 6:09 AM PLASTICS NURSE 15 mg ketorolac (TORADOL) injection 15 mg Given 15 mg, Slow IV Push, Q6H, 4 doses, First dose on 04/02/19 at 1330, Last dose on 04/03/19 at 0600, Routine, burn crew member approving Restricted medication: SEBLEKIMMY 15 mg Given 04/03/2019 12:15 AM PLASTICS NURSE 15 mg Given 04/02/2019 5:51 PM PLASTICS NURSE 04/02/2019 8:21 AM PLASTICS NURSE 4 mg Right Foot morpHINE injection 4 mg Given 4 mg, Slow IV Push, ONCE, 1 dose, 04/02/19 at 0930, STAT 04/02/2019 9:49 AM PLASTICS NURSE 4 mg morpHINE injection 4 mg Given 4 mg, Slow IV Push, ONCE, 1 dose, 04/02/19 at 1030, STAT 04/02/2019 7:56 AM PLASTICS NURSE 1,000 mL 999 mL/hr Right Foot NaCl 0.9% (NS) bolus infusion 1,000 mL New Bag at 999 mL/hr, 1,000 mL, IV Infusion, ONCE, 1 dose, 04/02/19 at 0730, ALYX 04/02/2019 12:03 PM PLASTICS NURSE 1,000 mL 999 mL/hr NaCl 0.9% (NS) bolus infusion 1,000 mL New Bag at 999 mL/hr, 1,000 mL, Intravenous, ONCE, 1 dose, 04/02/19 at 1145, STAT 04/02/2019 9:47 AM PLASTICS NURSE 4 mg ondansetron (ZOFRAN (PF)) injection 4 mg Given 4 mg, Slow IV Push, ONCE, 1 dose, 04/02/19 at 1030, ALYX 04/02/2019 7:55 AM PLASTICS NURSE 25 mg Left Arm proMETHazine (PHENERGAN) injection 25 mg Given 25 mg, Intramuscular, ONCE, 1 dose, 04/02/19 at 0830, ALYX documented in this encounter Insurance Type Payer Benefit Subscriber ID Effective Phone Address Plan / Dates Group PPO/POS [place] OF [id number] 2017-P [phone] [facility] [id number] [place] [address] documented as of this encounter
--- OUTSIDE RECORDS SUMMARY | 2019-05-10 16:47 | XMS REPORT ---
Author Author [facility] Address Unknown Phone Unavailable Care Team Providers Care Toll Transmission Worker Name Role Phone Otto SEQUEIRA Unavailable Unavailable Chung MCCALL Unavailable Unavailable Isatu BORRERO Unavailable Unavailable KYE SHEFFIELD Unavailable Unavailable Misty BRIGHT Unavailable Unavailable Erika HINOJOSA Unavailable Unavailable KIM NAVA Unavailable Unavailable JOJO STANLEY Unavailable Unavailable Hannah KWOK Unavailable Unavailable Payers Payer Name Policy Type Policy Number Effective Date Expiration Date Problems This patient has no known problems. Allergies, Adverse Reactions, Alerts Allergy Name Allergy Type Status Severity Reaction(s) Onset Date Inactive Date Treating Clinician Comments No Known Allergies DA Active U 2018-12-28 00:00:00 No Known Allergies DA Active U 2018-11-23 00:00:00 No Known Allergies DA Active U 2018-09-12 00:00:00 No Known Allergies DA Active U 2018-08-27 00:00:00 No Known Allergies DA Active U 2018-08-20 00:00:00 No Known Allergies DA Active U [...] End Date/Time Encounter Type Admission Type Attending [facility] Care Department Encounter ID 2019-05-01 13:35:00 Inpatient [facility] [id number] 2019-05-01 05:55:00 2019-05-01 05:55:00 Emergency E [facility] [id number] 2019-04-29 06:48:00 2019-04-29 06:48:00 Emergency E [facility] [id number] 2019-04-04 20:53:00 2019-04-04 20:53:00 Emergency E [facility] [id number] 2019-03-03 06:49:00 2019-03-03 06:49:00 Emergency E [facility] [id number] 2019-02-12 07:08:00 2019-02-12 07:08:00 Emergency E [facility] [id number] 2018-12-26 06:47:00 2018-12-26 06:47:00 Emergency E [facility] [id number] 2018-12-25 06:58:00 2018-12-25 06:58:00 Emergency E [facility] [id number] 2018-12-20 12:00:00 2018-12-20 12:00:00 Emergency E [facility] [id number] 2018-12-02 10:21:00 2018-12-02 10:21:00 Emergency E [facility] [id number] 2018-11-20 09:46:00 2018-11-20 09:46:00 Emergency E [facility] [id number] 2018-11-14 05:03:00 2018-11-14 05:03:00 Emergency E [facility] [id number] 2018-10-29 05:08:00 2018-10-29 05:08:00 Emergency E [facility] [id number] 2018-10-28 17:41:00 2018-10-28 17:41:00 Emergency E [facility] [id number] 2018-10-20 12:39:00 2018-10-20 12:39:00 Emergency E [facility] [id number] 2018-10-11 06:54:00 2018-10-11 06:54:00 Emergency E [facility] [id number] 2018-09-30 08:26:00 2018-09-30 08:26:00 Emergency E [facility] [id number] 2018-09-28 09:44:00 2018-09-28 09:44:00 Emergency E [facility] [id number] 2018-08-31 06:12:00 2018-08-31 06:12:00 Outpatient E [facility] [...] Comments Text Results Atomic Results Result Comments PHOSPHORUS 2019-03-27 19:18:00 PHOSPHORUS (BEAKER) (test lwmp=453) 3.6 mg/dL 2.3-4.7 Hvac Mechanical Engineer ID Keenan [id number] 19:18:00* Test Item Value Reference Range Comments MAGNESIUM (BEAKER) (test nkoz=473) 1.8 mg/dL 1.6-2.6 Hvac Mechanical Engineer AUSTIN KIRAN EBASIC METABOLIC [id number] 19:18:00* Test Item Value Reference Range Comments SODIUM (BEAKER) (test oxvn=483) 139 meq/L 136-145 POTASSIUM (BEAKER) (test yfsu=892) 3.5 meq/L 3.5-5.1 CHLORIDE (BEAKER) (test dipk=679) 106 meq/L 98-107 CO2 (BEAKER) (test wmqm=845) 27 meq/L 22-29 BLOOD UREA NITROGEN (BEAKER) (test ympy=241) 7 mg/dL 7-21 CREATININE (BEAKER) (test aswq=568) 0.66 mg/dL 0.57-1.25 GLUCOSE RANDOM (BEAKER) (test dqkm=135) 88 mg/dL 70-105 CALCIUM (BEAKER) (test wjlh=219) 9.5 mg/dL 8.4-10.2 EGFR (BEAKER) (test snhz=2135) 105 mL/min/1.73 sq m ESTIMATED GFR IS NOT ACCURATE CREATININE CLEARANCE IN PREDICTING GLOMERULAR FILTRATION RATE. ESTIMATED GFR IS NOT APPLICABLE FOR DIALYSIS PATIENTS. Hvac Mechanical Engineer AUSTIN KIRAN EHEPATIC FUNCTION [id number] 19:18:00* Test Item Value Reference Range Comments TOTAL PROTEIN (BEAKER) (test ftuj=732) 7.2 gm/dL 6.0-8.3 ALBUMIN (BEAKER) (test vywk=3510) 4.0 g/dL 3.5-5.0 BILIRUBIN TOTAL (BEAKER) (test buok=317) 0.2 mg/dL 0.2-1.2 BILIRUBIN DIRECT (BEAKER) (test cqwg=952) 0.1 mg/dL 0.1-0.5 ALKALINE PHOSPHATASE (BEAKER) (test gzuh=625) 100 U/L 40-150 AST (SGOT) (BEAKER) (test lrba=511) 14 U/L 5-34 ALT (SGPT) (BEAKER) (test pdxm=306) 24 U/L 6-55 Hvac Mechanical Engineer AUSTIN KIRAN [id number] 19:18:00* Test Item Value Reference Range Comments LIPASE (BEAKER) (test tfzn=634) 10 U/L 8-78 Hvac Mechanical Engineer AUSTIN KIRAN ECBC W/PLT COUNT & AUTO [id number] 18:21:00* Test Item Value Reference Range Comments WHITE BLOOD CELL COUNT (BEAKER) (test xcao=171) 7.4 K/ L 3.5-10.5 RED BLOOD CELL COUNT (BEAKER) (test ttnq=102) 4.08 M/ L 3.93-5.22 HEMOGLOBIN (BEAKER) (test wncv=035) 10.2 GM/DL 11.2-15.7 HEMATOCRIT (BEAKER) (test sobl=764) 34.2 % 34.1-44.9 MEAN CORPUSCULAR VOLUME (BEAKER) (test czxp=517) 83.8 fL 79.4-94.8 MEAN CORPUSCULAR HEMOGLOBIN (BEAKER) (test qlqj=719) 25.0 pg 25.6-32.2 MEAN CORPUSCULAR HEMOGLOBIN CONC (BEAKER) (test lxoz=968) 29.8 GM/DL 32.2-35.5 RED CELL DISTRIBUTION WIDTH (BEAKER) (test pcjx=306) 20.1 % 11.7-14.4 PLATELET COUNT (BEAKER) (test adsr=571) 409 K/CU MM 150-450 MEAN PLATELET VOLUME (BEAKER) (test cqlu=247) 11.1 fL 9.4-12.3 NUCLEATED RED BLOOD CELLS (BEAKER) (test fzla=692) 0 /100 WBC 0-0 NEUTROPHILS RELATIVE PERCENT (BEAKER) (test rpqs=296) 62 % LYMPHOCYTES RELATIVE PERCENT (BEAKER) (test jkfo=465) 31 % MONOCYTES RELATIVE PERCENT (BEAKER) (test mhsq=352) 4 % EOSINOPHILS RELATIVE PERCENT (BEAKER) (test sidc=410) 2 % BASOPHILS RELATIVE PERCENT (BEAKER) (test ltqx=990) 1 % NEUTROPHILS ABSOLUTE COUNT (BEAKER) (test fkki=546) 4.60 K/ L 1.56-6.13 LYMPHOCYTES ABSOLUTE COUNT (BEAKER) (test bbap=307) 2.30 K/ L 1.18-3.74 MONOCYTES ABSOLUTE COUNT (BEAKER) (test jmzj=444) 0.29 K/ L 0.24-0.36 EOSINOPHILS ABSOLUTE COUNT (BEAKER) (test xssm=241) 0.15 K/ L 0.04-0.36 BASOPHILS ABSOLUTE COUNT (BEAKER) (test bykg=646) 0.05 K/ L 0.01-0.08 IMMATURE GRANULOCYTES-RELATIVE PERCENT (BEAKER) (test lldy=7696) 0 % 0-1 URINALYSIS W/ REFLEX URINE [id number] 17:51:00* Test Item Value Reference Range Comments COLOR (BEAKER) (test usex=704) Yellow CLARITY (BEAKER) (test gabx=020) Hazy SPECIFIC GRAVITY UA (BEAKER) (test srix=211) 1.015 1.001-1.035 PH UA (BEAKER) (test rhts=456) 7.0 5.0-8.0 PROTEIN UA (BEAKER) (test vnum=208) Negative Negative GLUCOSE UA (BEAKER) (test kcql=711) Negative Negative KETONES UA (BEAKER) (test irou=727) Negative Negative BILIRUBIN UA (BEAKER) (test zzug=707) Negative Negative BLOOD UA (BEAKER) (test mzqq=525) Negative Negative NITRITE UA (BEAKER) (test pnhr=425) Negative Negative LEUKOCYTE ESTERASE UA (BEAKER) (test febm=772) Moderate Negative UROBILINOGEN UA (BEAKER) (test ybdj=814) 2.0 mg/dL 0.2-1.0 RBC UA (BEAKER) (test uzat=388) 0 /HPF WBC UA (BEAKER) (test tdjr=815) 4 /HPF BACTERIA (BEAKER) (test ybsa=744) Occasional SQUAMOUS EPITHELIAL (BEAKER) (test ayjl=117) 2 /HPF SOURCE(BEAKER) (test euoi=5069) Hvac Mechanical Engineer ID - [auto]Hvac Mechanical Engineer ID - hankPREGNANCY SCREEN, [id number] 17:46:00 * Test Item Value Reference Range Comments TEST URINE (BEAKER) (test yuuq=159) Negative CT, [id number] 17:28:00FINAL REPORT ABDOMINAL AND PELVIS CT DATED 03/27/2019 CLINICAL INFORMATION: abd pain TECHNIQUE: Axial images of the abdomen and pelvis were obtained from diaphragm to the pubic symphysis without GI or intravenous contrast. This exam was performed according to our departmental dose-optimization program, which includes automated exposure control, adjustment of the mA and/or kV according to patient size and/or use of interactive reconstruction technique. COMMENT: Liver and spleen are normal in size without focal abnormality. Gallbladder is surgically absent. No biliary dilatation is noted. Pancreas and adrenals are unremarkable. Both kidneys are normal in size. No hydronephrosis, hydroureter, urolithiasis is seen. The small and large bowel are unremarkable. Appendix is not visualized. No mass, adenopathy or ascites is present. IMPRESSION: Unremarkable noncontrast enhanced CT of the abdomen and pelvis. Signed: Kim Marquez MDReport Verified Date/Time: 03/27/2019 17:28:06 Reading Location: [facility] B1 C013Y CT Body Reading Room [id number] 10:04:00* Test Item Value Reference Range Comments LIPASE (BEAKER) (test mewy=344) 9 U/L 8-78 Hvac Mechanical Engineer ID - AMMY [id number] 10:04:00* Test Item Value Reference Range Comments AMYLASE (BEAKER) (test pzvq=312) 52 U/L 25-125 Hvac Mechanical Engineer ID - AMMY CBASIC METABOLIC [id number] 10:04:00* Test Item Value Reference Range Comments SODIUM (BEAKER) (test jjux=683) 139 meq/L 136-145 POTASSIUM (BEAKER) (test ucwr=356) 3.7 meq/L 3.5-5.1 CHLORIDE (BEAKER) (test raqg=798) 107 meq/L 98-107 CO2 (BEAKER) (test byps=270) 24 meq/L 22-29 BLOOD UREA NITROGEN (BEAKER) (test hqsk=804) 9 mg/dL 7-21 CREATININE (BEAKER) (test uprm=179) 0.65 mg/dL 0.57-1.25 GLUCOSE RANDOM (BEAKER) (test lhac=022) 93 mg/dL 70-105 CALCIUM (BEAKER) (test hovw=395) 8.8 mg/dL 8.4-10.2 EGFR (BEAKER) (test hwkw=9327) 107 mL/min/1.73 sq m ESTIMATED GFR IS NOT ACCURATE CREATININE CLEARANCE IN PREDICTING GLOMERULAR FILTRATION RATE. ESTIMATED GFR IS NOT APPLICABLE FOR DIALYSIS PATIENTS. Hvac Mechanical Engineer ID - AMMY CHEPATIC FUNCTION [id number] 10:04:00* Test Item Value Reference Range Comments TOTAL PROTEIN (BEAKER) (test wgee=327) 7.5 gm/dL 6.0-8.3 ALBUMIN (BEAKER) (test doeq=1294) 4.2 g/dL 3.5-5.0 BILIRUBIN TOTAL (BEAKER) (test ueie=223) 0.2 mg/dL 0.2-1.2 BILIRUBIN DIRECT (BEAKER) (test aznl=973) 0.1 mg/dL 0.1-0.5 ALKALINE PHOSPHATASE (BEAKER) (test ntci=898) 116 U/L 40-150 AST (SGOT) (BEAKER) (test vunx=233) 13 U/L 5-34 ALT (SGPT) (BEAKER) (test kfwx=161) 44 U/L 6-55 Hvac Mechanical Engineer ID - AMMY CURINALYSIS W/ [id number] 09:18:00* Test Item Value Reference Range Comments COLOR (BEAKER) (test cyec=957) Yellow CLARITY (BEAKER) (test wfbt=630) Hazy SPECIFIC GRAVITY UA (BEAKER) (test ikug=511) 1.026 1.001-1.035 PH UA (BEAKER) (test oepb=104) 6.5 5.0-8.0 PROTEIN UA (BEAKER) (test tmvt=135) 20 mg/dL Negative GLUCOSE UA (BEAKER) (test gryc=946) Negative Negative KETONES UA (BEAKER) (test iozt=099) Negative Negative BILIRUBIN UA (BEAKER) (test azxy=671) Negative Negative BLOOD UA (BEAKER) (test epdf=837) Negative Negative NITRITE UA (BEAKER) (test hpsm=945) Negative Negative LEUKOCYTE ESTERASE UA (BEAKER) (test jnyy=543) Trace Negative UROBILINOGEN UA (BEAKER) (test xrkt=075) 2.0 mg/dL 0.2-1.0 RBC UA (BEAKER) (test uwvw=837) < /HPF WBC UA (BEAKER) (test nhty=549) 3 /HPF MUCUS (BEAKER) (test pnez=1457) Rare SQUAMOUS EPITHELIAL (BEAKER) (test dhdu=944) 37 /HPF AMORPHOUS CRYSTALS (BEAKER) (test kpiz=3440) Occasional SOURCE(BEAKER) (test uvuf=7137) Hvac Mechanical Engineer ID - [auto]Hvac Mechanical Engineer ID - techCBC W/PLT COUNT & AUTO DIFFERENTIAL 2019-03-19 08:37:00* Test Item Value Reference Range Comments WHITE BLOOD CELL COUNT (BEAKER) (test ggor=408) 6.4 K/ L 3.5-10.5 RED BLOOD CELL COUNT (BEAKER) (test uhmj=598) 4.42 M/ L 3.93-5.22 HEMOGLOBIN (BEAKER) (test zzvr=771) 11.4 GM/DL 11.2-15.7 HEMATOCRIT (BEAKER) (test unrc=529) 36.9 % 34.1-44.9 MEAN CORPUSCULAR VOLUME (BEAKER) (test bmlt=068) 83.5 fL 79.4-94.8 MEAN CORPUSCULAR HEMOGLOBIN (BEAKER) (test pcpi=763) 25.8 pg 25.6-32.2 MEAN CORPUSCULAR HEMOGLOBIN CONC (BEAKER) (test bhgu=408) 30.9 GM/DL 32.2-35.5 RED CELL DISTRIBUTION WIDTH (BEAKER) (test lagu=188) 19.3 % 11.7-14.4 PLATELET COUNT (BEAKER) (test vzoo=348) 442 K/CU MM 150-450 MEAN PLATELET VOLUME (BEAKER) (test zxxo=100) 10.4 fL 9.4-12.3 NUCLEATED RED BLOOD CELLS (BEAKER) (test efaa=224) 0 /100 WBC 0-0 NEUTROPHILS RELATIVE PERCENT (BEAKER) (test czei=137) 58 % LYMPHOCYTES RELATIVE PERCENT (BEAKER) (test rdez=035) 34 % MONOCYTES RELATIVE PERCENT (BEAKER) (test wart=440) 5 % EOSINOPHILS RELATIVE PERCENT (BEAKER) (test xpzx=863) 3 % BASOPHILS RELATIVE PERCENT (BEAKER) (test nonh=006) 1 % NEUTROPHILS ABSOLUTE COUNT (BEAKER) (test znae=369) 3.69 K/ L 1.56-6.13 LYMPHOCYTES ABSOLUTE COUNT (BEAKER) (test knps=681) 2.18 K/ L 1.18-3.74 MONOCYTES ABSOLUTE COUNT (BEAKER) (test vwyu=633) 0.29 K/ L 0.24-0.36 EOSINOPHILS ABSOLUTE COUNT (BEAKER) (test fmhp=712) 0.17 K/ L 0.04-0.36 BASOPHILS ABSOLUTE COUNT (BEAKER) (test fatb=620) 0.04 K/ L 0.01-0.08 IMMATURE GRANULOCYTES-RELATIVE PERCENT (BEAKER) (test yagz=1790) 0 % 0-1 DRUGS OF ABUSE SCREEN [id number] 20:44:00* Test Item Value Reference Range Comments UA PH DIPSTICK (test code=ROC) 6.0 5.0-8.0 URN COCAINE (test code=COCAURN) NEGATIVE <300 [...] NEGATIVE <300 ng/mL DRUGS OF ABUSE SCREEN [id number] 19:41:00* Test Item Value Reference Range Comments [...] URN METHADONE (test code=METHAURN) NEGATIVE <300 ng/mL URINALYSIS [id number] 19:01:00* Test Item Value Reference Range Comments UA COLOR (test code=COLU) YELLOW YELLOW UA APPEARANCE (test code=APPU) CLEAR CLEAR UA GLUCOSE DIPSTICK (test code=DGLUU) NEGATIVE mg/dL NEGATIVE UA BILIRUBIN DIPSTICK (test code=BILU) NEGATIVE mg/dL NEGATIVE UA KETONE DIPSTICK (test code=KETU) NEGATIVE mg/dL NEGATIVE UA SPECIFIC GRAVITY (test code=SGU) 1.025 1.001-1.035 UA BLOOD DIPSTICK (test code=ZABRINA) Negative mg/dL NEGATIVE UA PH DIPSTICK (test code=ROC) 6.0 5.0-8.0 UA PROTEIN DIPSTICK (test code=PROU) 10 (Trace) mg/dL NEGATIVE UA UROBILINIOGEN DIPSTICK (test code=URO) 2.0 (1+) mg/dL NEGATIVE UA NITRITE DIPSTICK (test code=NURA) NEGATIVE NEGATIVE UA LEUKOCYTE ESTERASE W REFLEX (test code=LEUUR) NEGATIVE Mihaela/uL NEGATIVE UA WBC (test code=WBCU) 0-5 per HPF 0-5 UA RBC (test code=RBCU) 0-2 #/HPF 0-5 UA EPITHELIAL CELLS (test code=EPIU) FEW per HPF FEW UA BACTERIA (test code=BACU) NONE SEEN #/HPF NONE UA MUCUS (test code=MUCU) FEW #/LPF FEW Urine Source? Clean CatchURINALYSIS [id number] 19:00:00* Test Item Value Reference Range Comments UA COLOR (test code=COLU) YELLOW YELLOW UA APPEARANCE (test code=APPU) CLEAR CLEAR UA GLUCOSE DIPSTICK (test code=DGLUU) NEGATIVE mg/dL NEGATIVE UA BILIRUBIN DIPSTICK (test code=BILU) NEGATIVE mg/dL NEGATIVE UA KETONE DIPSTICK (test code=KETU) NEGATIVE mg/dL NEGATIVE UA SPECIFIC GRAVITY (test code=SGU) 1.025 1.001-1.035 UA BLOOD DIPSTICK (test code=ZABRINA) Negative mg/dL NEGATIVE UA PH DIPSTICK (test code=ROC) 6.0 5.0-8.0 UA PROTEIN DIPSTICK (test code=PROU) 10 (Trace) mg/dL NEGATIVE UA UROBILINIOGEN DIPSTICK (test code=URO) 2.0 (1+) mg/dL NEGATIVE UA NITRITE DIPSTICK (test code=NURA) NEGATIVE NEGATIVE UA LEUKOCYTE ESTERASE W REFLEX (test code=LEUUR) NEGATIVE Mihaela/uL NEGATIVE UA WBC (test code=WBCU) per HPF 0-5 UA RBC (test code=RBCU) per HPF 0-5 UA EPITHELIAL CELLS (test code=EPIU) per HPF Few UA BACTERIA (test code=BACU) per HPF NONE Urine Source? Clean CatchCT, [id number] 06:38:00Reason for exam:-> Abdominal painWhat is the patient's sedation requirement?->No SedationIs the patient ?->UnknownFINAL REPORT TECHNIQUE: CT of the abdomen and pelvis WITH intravenous contrast and WITHOUT oral contrast. Dose modulation, iterative reconstruction, and/or weight-based adjustment of the mA/kV was utilized to reduce the radiation dose to as low as reasonably achievable. INDICATION: Abdominal pain and leukocytosis. COMPARISON: //18. FINDINGS: LOWER THORAX: Unremarkable. HEPATOBILIARY: No focal hepatic lesions. Gallbladder is surgically absent. No biliary ductal dilatation.SPLEEN: No splenomegaly.PANCREAS: No focal masses or ductal dilatation. ADRENALS: No adrenal nodules.KIDNEYS/URETERS: No hydronephrosis, stones, or masses.PELVIC ORGANS/BLADDER: Hysterectomy. Bladder is unremarkable. PERITONEUM/RETROPERITONEUM: No free air or fluid.LYMPH NODES: No lymphadenopath y.VESSELS: Unremarkable. GI TRACT: No distention or wall thickening of the small bowel. Appendix is surgically absent. The transverse, descending, and sigmoid c olon are collapsed. There are a few noninflamed colonic diverticula BONES AND SO FT TISSUES: Unremarkable. IMPRESSION:Transverse, descending and sigmoid colon a re nondistended likely exaggerating appearance of slight bowel wall thickening a nd confounding the exclusion of mild colitis. Otherwise, no acute abdominal or p elvic abnormality. Prior cholecystectomy, hysterectomy, and appendectomy. Signed : Kim Walden MDReport Verified Date/Time: 02/18/2019 06:38:21 Electron ically signed by: KIM WALDEN MD on 02/18/2019 06:38 AM SCREEN, [id number] 05:54:00* Test Item Value Reference Range Comments TEST URINE (BEAKER) (test vdzz=027) Negative [id number] 04:23:00* Test Item Value Reference Range Comments MAGNESIUM (BEAKER) (test frxw=060) 1.5 mg/dL 1.6-2.6 COMPREHENSIVE METABOLIC [id number] 04:23:00* Test Item Value Reference Range Comments TOTAL PROTEIN (BEAKER) (test xksi=301) 7.9 gm/dL 6.0-8.3 ALBUMIN (BEAKER) (test gzmt=9183) 4.5 g/dL 3.5-5.0 ALKALINE PHOSPHATASE (BEAKER) (test nqbc=567) 98 U/L 40-150 BILIRUBIN TOTAL (BEAKER) (test vkfg=354) 0.4 mg/dL 0.2-1.2 SODIUM (BEAKER) (test fqzc=373) 137 meq/L 136-145 POTASSIUM (BEAKER) (test ozps=323) 3.7 meq/L 3.5-5.1 CHLORIDE (BEAKER) (test bwgi=786) 105 meq/L 98-107 CO2 (BEAKER) (test iqnd=763) 22 meq/L 22-29 BLOOD UREA NITROGEN (BEAKER) (test jcsa=667) 7 mg/dL 7-21 CREATININE (BEAKER) (test ovpu=157) 0.64 mg/dL 0.57-1.25 GLUCOSE RANDOM (BEAKER) (test ntzf=027) 112 mg/dL 70-105 CALCIUM (BEAKER) (test isiv=256) 9.2 mg/dL 8.4-10.2 AST (SGOT) (BEAKER) (test ezcm=613) 21 U/L 5-34 ALT (SGPT) (BEAKER) (test ucgw=804) 33 U/L 6-55 EGFR (BEAKER) (test uady=4113) 109 mL/min/1.73 sq m ESTIMATED GFR IS NOT ACCURATE CREATININE CLEARANCE IN PREDICTING GLOMERULAR FILTRATION RATE. ESTIMATED GFR IS NOT APPLICABLE FOR DIALYSIS PATIENTS. CBC W/PLT COUNT & AUTO [id number] 03:59:00* Test Item Value Reference Range Comments WHITE BLOOD CELL COUNT (BEAKER) (test wzrc=710) 13.8 K/ L 3.5-10.5 RED BLOOD CELL COUNT (BEAKER) (test nzke=228) 3.71 M/ L 3.93-5.22 HEMOGLOBIN (BEAKER) (test admp=881) 9.4 GM/DL 11.2-15.7 HEMATOCRIT (BEAKER) (test yhja=483) 29.8 % 34.1-44.9 MEAN CORPUSCULAR VOLUME (BEAKER) (test sgov=266) 80.3 fL 79.4-94.8 MEAN CORPUSCULAR HEMOGLOBIN (BEAKER) (test bawz=396) 25.3 pg 25.6-32.2 MEAN CORPUSCULAR HEMOGLOBIN CONC (BEAKER) (test yfay=015) 31.5 GM/DL 32.2-35.5 RED CELL DISTRIBUTION WIDTH (BEAKER) (test hgwv=733) 19.1 % 11.7-14.4 PLATELET COUNT (BEAKER) (test opfi=681) 387 K/CU MM 150-450 MEAN PLATELET VOLUME (BEAKER) (test chwz=337) 10.1 fL 9.4-12.3 NUCLEATED RED BLOOD CELLS (BEAKER) (test phvh=048) 0 /100 WBC 0-0 NEUTROPHILS RELATIVE PERCENT (BEAKER) (test hdob=482) 90 % LYMPHOCYTES RELATIVE PERCENT (BEAKER) (test mxlo=527) 7 % MONOCYTES RELATIVE PERCENT (BEAKER) (test tbao=438) 2 % EOSINOPHILS RELATIVE PERCENT (BEAKER) (test jdsz=220) 0 % BASOPHILS RELATIVE PERCENT (BEAKER) (test ahga=613) 0 % NEUTROPHILS ABSOLUTE COUNT (BEAKER) (test rekx=692) 12.40 K/ L 1.56-6.13 LYMPHOCYTES ABSOLUTE COUNT (BEAKER) (test qmzv=051) 0.98 K/ L 1.18-3.74 MONOCYTES ABSOLUTE COUNT (BEAKER) (test ermr=400) 0.31 K/ L 0.24-0.36 EOSINOPHILS ABSOLUTE COUNT (BEAKER) (test asfh=922) 0.01 K/ L 0.04-0.36 BASOPHILS ABSOLUTE COUNT (BEAKER) (test euds=111) 0.03 K/ L 0.01-0.08 IMMATURE GRANULOCYTES-RELATIVE PERCENT (BEAKER) (test vkju=3374) 1 % 0-1 URINALYSIS W/ REFLEX URINE [id number] 00:49:00* Test Item Value Reference Range Comments COLOR (BEAKER) (test hkmy=317) Yellow CLARITY (BEAKER) (test rjzk=973) Cloudy SPECIFIC GRAVITY UA (BEAKER) (test yzat=125) 1.020 1.001-1.035 PH UA (BEAKER) (test bjek=041) 8.0 5.0-8.0 PROTEIN UA (BEAKER) (test dbkw=255) 70 mg/dL Negative GLUCOSE UA (BEAKER) (test sovk=517) 200 mg/dL Negative KETONES UA (BEAKER) (test attd=026) 10 mg/dL Negative BILIRUBIN UA (BEAKER) (test zfim=062) Negative Negative BLOOD UA (BEAKER) (test unlo=294) Trace Negative NITRITE UA (BEAKER) (test prxp=432) Negative Negative LEUKOCYTE ESTERASE UA (BEAKER) (test opbg=564) Moderate Negative UROBILINOGEN UA (BEAKER) (test neto=297) 0.2 mg/dL 0.2-1.0 RBC UA (BEAKER) (test sdzf=509) 14 /HPF WBC UA (BEAKER) (test ehqa=570) 8 /HPF BACTERIA (BEAKER) (test rpqj=378) Occasional MUCUS (BEAKER) (test fice=7180) Many SQUAMOUS EPITHELIAL (BEAKER) (test dwvt=987) 43 /HPF SOURCE(BEAKER) (test nksi=6060) BUN AND [id number] 12:33:00* Test Item Value Reference Range Comments BLOOD UREA NITROGEN (BEAKER) (test xbdg=296) 12 mg/dL 7-21 CREATININE (BEAKER) (test qfuf=622) 0.65 mg/dL 0.57-1.25 EGFR (BEAKER) (test mgma=7311) 107 mL/min/1.73 sq m ESTIMATED GFR IS NOT ACCURATE CREATININE CLEARANCE IN PREDICTING GLOMERULAR FILTRATION RATE. ESTIMATED GFR IS NOT APPLICABLE FOR DIALYSIS PATIENTS. [id number] 12:33:00* Test Item Value Reference Range Comments SODIUM (BEAKER) (test zpyr=002) 139 meq/L 136-145 POTASSIUM (BEAKER) (test iyxb=458) 3.6 meq/L 3.5-5.1 CHLORIDE (BEAKER) (test utyg=865) 106 meq/L 98-107 CO2 (BEAKER) (test rapu=612) 28 meq/L 22-29 CBC W/PLT COUNT & AUTO [id number] 12:10:00* Test Item Value Reference Range Comments WHITE BLOOD CELL COUNT (BEAKER) (test iolx=008) 5.2 K/ L 3.5-10.5 RED BLOOD CELL COUNT (BEAKER) (test mpbb=378) 4.01 M/ L 3.93-5.22 HEMOGLOBIN (BEAKER) (test puvi=272) 10.3 GM/DL 11.2-15.7 HEMATOCRIT (BEAKER) (test qffi=195) 33.2 % 34.1-44.9 MEAN CORPUSCULAR VOLUME (BEAKER) (test tpos=990) 82.8 fL 79.4-94.8 MEAN CORPUSCULAR HEMOGLOBIN (BEAKER) (test ullh=056) 25.7 pg 25.6-32.2 MEAN CORPUSCULAR HEMOGLOBIN CONC (BEAKER) (test jduc=064) 31.0 GM/DL 32.2-35.5 RED CELL DISTRIBUTION WIDTH (BEAKER) (test zbvh=473) 19.4 % 11.7-14.4 PLATELET COUNT (BEAKER) (test lunx=089) 288 K/CU MM 150-450 MEAN PLATELET VOLUME (BEAKER) (test aqwh=507) 10.6 fL 9.4-12.3 NUCLEATED RED BLOOD CELLS (BEAKER) (test yipv=845) 0 /100 WBC 0-0 NEUTROPHILS RELATIVE PERCENT (BEAKER) (test jllu=001) 61 % LYMPHOCYTES RELATIVE PERCENT (BEAKER) (test idbb=235) 27 % MONOCYTES RELATIVE PERCENT (BEAKER) (test eooa=811) 9 % EOSINOPHILS RELATIVE PERCENT (BEAKER) (test dcdg=782) 2 % BASOPHILS RELATIVE PERCENT (BEAKER) (test twwr=841) 0 % NEUTROPHILS ABSOLUTE COUNT (BEAKER) (test unxi=422) 3.21 K/ L 1.56-6.13 LYMPHOCYTES ABSOLUTE COUNT (BEAKER) (test oqrn=956) 1.41 K/ L 1.18-3.74 MONOCYTES ABSOLUTE COUNT (BEAKER) (test gorl=548) 0.49 K/ L 0.24-0.36 EOSINOPHILS ABSOLUTE COUNT (BEAKER) (test mdfa=816) 0.09 K/ L 0.04-0.36 BASOPHILS ABSOLUTE COUNT (BEAKER) (test qybq=990) 0.02 K/ L 0.01-0.08 IMMATURE GRANULOCYTES-RELATIVE PERCENT (BEAKER) (test vngb=2965) 0 % 0-1 CT ABD/PEL WO [id number] 10:12:00 [place] [id number] Patient Name: HOLLEY GAYLE MR #: [id number] : 1990 Age/Sex: 28/F Req #: [id number] Adm Physician: Ordered by: ADRIANA BRIGHT MD Report #: [id number] Location: [facility] Room/Bed: Procedure: [id number] HO PD/CT ABD/PEL WO CONTRAST-HOPD Exam Date: 01/05/19 E xam Time: 1007 REPORT STATUS: Gloria d CT of the abdomen and pelvis, without contrast, 01/05/2019. History: Left-sided abdominal pain. Comparison: 2017. Techni que: Multidetector CT scanning of the abdomen and pelvis was performed from th e level of the lung bases to the inferior pubic rami without intravenous or or al contrast. Coronal and sagittal multiplanar reformations were obtained. RADIATION DOSE: Total DLP: 699 mGy*cm Dose modulation, iterative r econstruction, and/or weight based adjustment of the mA/kV was utilized to red uce the radiation dose to as low as reasonably achievable. Discussion: E xamination is limited without contrast. Lung bases: No visualized abnormalitie s. Abdomen: Cholecystectomy clips are present. The liver, biliary tree, spl een, pancreas, adrenal glands, and kidneys are unremarkable. There is no evide nce of nephrolithiasis or hydronephrosis. The abdominal aorta is within normal limits. A small hiatal hernia is present. There is no bowel dilatation. Surgi imani clips are noted adjacent to the cecum suggestive of prior appendectomy. Th ere is no evidence of adenopathy or free fluid. A tiny fat-containing umbilic al hernia is present. Pelvis: The bladder is unremarkable. The uterus and adnexa are absent. There is no evidence of free fluid or adenopathy. Ubaldo morelia and soft tissues: No acute abnormality. IMPRESSION: Small hiatal h ernia. Status post cholecystectomy and hysterectomy. Otherwise unremarkable no ncontrast exam. No evidence of nephrolithiasis. Signed by: Antonino benjamin on 01/05/2019 10:19 AM Dictated By: ANTONINO LIRA MD Electronically S igned By: ANTONINO LIRA MD on 01/05/19 1019 Transcribed By: QUENTIN on 01/05/19 1019 COPY TO: ADRIANA BRIGHT MD COMPREHENSIVE METABOLIC [id number] 19:10:00* Test Item Value Reference Range Comments SODIUM (test code=NA) 139 mEq/L 134-147 POTASSIUM (test code=K) 3.1 mEq/L 3.4-5.0 CHLORIDE (test code=CL) 106 mEq/L 100-108 CARBON DIOXIDE (test code=CO2) 28 mEq/L 21-33 ANION GAP (test code=GAP) 8 0-20 GLUCOSE (test code=GLU) 96 mg/dL 70-110 BLOOD UREA NITROGEN (test code=BUN) 4 mg/dL 7-18 GLOMERULAR FILTRATION RATE (test code=GFR) 117.4 105-110 Units of measure=ml/min/1.73 m2 CREATININE (test code=CREAT) 0.6 mg/dL 0.6-1.3 TOTAL PROTEIN (test code=PROT) 7.7 g/dL 6.4-8.2 ALBUMIN (test code=ALB) 4.10 g/dL 3.4-5.0 CALCIUM (test code=CA) 9.2 mg/dL 8.0-10.5 BILIRUBIN TOTAL (test code=BILT) 0.5 MG/DL <1.5 SGOT/AST (test code=AST) 18 IUnit/L 15-37 SGPT/ALT (test code=ALT) 28 IUnit/L 15-65 ALKALINE PHOSPHATASE TOTAL (test code=ALKP) 88 IUnit/L 20-125 [id number] 19:10:00* Test Item Value Reference Range Comments LIPASE (test code=LIP) 56 IUnit/L 73-393 COMPREHENSIVE METABOLIC [id number] 19:07:00* Test Item Value Reference Range Comments SODIUM (test code=NA) 139 mEq/L 134-147 POTASSIUM (test code=K) 3.1 mEq/L 3.4-5.0 CHLORIDE (test code=CL) 106 mEq/L 100-108 CARBON DIOXIDE (test code=CO2) 28 mEq/L 21-33 ANION GAP (test code=GAP) 8 0-20 GLUCOSE (test code=GLU) 96 mg/dL 70-110 BLOOD UREA NITROGEN (test code=BUN) 4 mg/dL 7-18 GLOMERULAR FILTRATION RATE (test code=GFR) 105-110 CREATININE (test code=CREAT) mg/dL 0.6-1.3 TOTAL PROTEIN (test code=PROT) g/dL 6.4-8.2 ALBUMIN (test code=ALB) g/dL 3.4-5.0 CALCIUM (test code=CA) 9.2 mg/dL 8.0-10.5 BILIRUBIN TOTAL (test code=BILT) MG/DL <1.5 SGOT/AST (test code=AST) IUnit/L 15-37 SGPT/ALT (test code=ALT) IUnit/L 15-65 ALKALINE PHOSPHATASE TOTAL (test code=ALKP) IUnit/L 20-125 [id number] 19:07:00* Test Item Value Reference Range Comments LIPASE (test code=LIP) 56 IUnit/L 73-393 CBC W/AUTO [id number] 18:57:00* Test Item Value Reference Range Comments WHITE BLOOD CELL (test code=WBC) 5.22 x10 3/uL 4.5-11.0 RED BLOOD CELL (test code=RBC) 3.67 x10 6/uL 3.54-5.02 HEMOGLOBIN (test code=HGB) 9.5 g/dL 11.0-15.0 HEMATOCRIT (test code=HCT) 30.2 % 33.0-45.0 MEAN CELL VOLUME (test code=MCV) 82.3 fL 81.0-99.0 MEAN CELL HGB (test code=MCH) 25.9 pg 27.0-33.0 MEAN CELL HGB CONCETRATION (test code=MCHC) 31.5 g/dL 33.0-37.0 RED CELL DISTRIBUTION WIDTH CV (test code=RDW) 19.5 % 11.5-14.5 RED CELL DISTRIBUTION WIDTH SD (test code=RDW-SD) 58.0 fL 37.0-54.0 PLATELET COUNT (test code=PLT) 345 x10 3/uL 150-400 MEAN PLATELET VOLUME (test code=MPV) 10.4 fL 7.0-9.0 NEUTROPHIL % (test code=NT%) 64.6 % 56.0-77.0 IMMATURE GRANULOCYTE % (test code=IG%) 0.4 % 0.0-2.0 LYMPHOCYTE % (test code=LY%) 26.2 % 14.0-32.0 MONOCYTE % (test code=MO%) 7.3 % 4.8-9.0 EOSINOPHIL % (test code=EO%) 1.1 % 0.3-3.7 BASOPHIL % (test code=BA%) 0.4 % 0.0-2.0 NUCLEATED RBC % (test code=NRBC%) 0.0 % 0-0 NEUTROPHIL # (test code=NT#) 3.37 x10 3/uL 2.0-7.6 IMMATURE GRANULOCYTE # (test code=IG#) 0.02 x10 3/uL 0.00-0.03 LYMPHOCYTE # (test code=LY#) 1.37 x10 3/uL 1.0-3.8 MONOCYTE # (test code=MO#) 0.38 x10 3/uL 0.1-0.8 EOSINOPHIL # (test code=EO#) 0.06 x10 3/uL 0.0-0.2 BASOPHIL # (test code=BA#) 0.02 x10 3/uL 0.0-0.2 NUCLEATED RBC # (test code=NRBC#) 0.00 x10 3/uL 0.0-0.1 MANUAL DIFF REQUIRED (test code=MDIFF) NO RETIC COUNT (AUTOMATED)2018-11-24 09:07:00* Test Item Value Reference Range Comments RETIC COUNT (AUTOMATED) (test code=RETICA) 1.2 % 0.3-2.3 TOTAL IRON BINDING [id number] 08:49:00* Test Item Value Reference Range Comments SERUM IRON (test code=IRON) 27 mcg/dL 35-150 TOTAL IRON BINDING CAPACITY (test code=TIBC) 459 mcg/dL 260-445 UIBC (test code=UIBC) 432 mcg/dL IRON SATURATION (test code=FESAT) 5.9 % 14-34 VITAMIN [id number] 08:49:00* Test Item Value Reference Range Comments VITAMIN B12 (test code=VITB12) 308 pg/mL 193-986 [id number] 08:49:00* Test Item Value Reference Range Comments FERRITIN (test code=NIKO) 4.4 ng/mL 11.0-306.8 BASIC METABOLIC [id number] 05:52:00* Test Item Value Reference Range Comments SODIUM (test code=NA) 136 mEq/L 134-147 POTASSIUM (test code=K) 2.9 mEq/L 3.4-5.0 CHLORIDE (test code=CL) 101 mEq/L 100-108 CARBON DIOXIDE (test code=CO2) 29 mEq/L 21-33 ANION GAP (test code=GAP) 9 0-20 GLUCOSE (test code=GLU) 96 mg/dL 70-110 BLOOD UREA NITROGEN (test code=BUN) 8 mg/dL 7-18 GLOMERULAR FILTRATION RATE (test code=GFR) 117.4 105-110 Units of measure=ml/min/1.73 m2 CREATININE (test code=CREAT) 0.6 mg/dL 0.6-1.3 CALCIUM (test code=CA) 9.8 mg/dL 8.0-10.5 CBC W/AUTO [id number] 05:32:00* Test Item Value Reference Range Comments WHITE BLOOD CELL (test code=WBC) 7.93 x10 3/uL 4.5-11.0 RED BLOOD CELL (test code=RBC) 3.88 x10 6/uL 3.54-5.02 HEMOGLOBIN (test code=HGB) 9.8 g/dL 11.0-15.0 HEMATOCRIT (test code=HCT) 31.2 % 33.0-45.0 MEAN CELL VOLUME (test code=MCV) 80.4 fL 81.0-99.0 MEAN CELL HGB (test code=MCH) 25.3 pg 27.0-33.0 MEAN CELL HGB CONCETRATION (test code=MCHC) 31.4 g/dL 33.0-37.0 RED CELL DISTRIBUTION WIDTH CV (test code=RDW) 19.0 % 11.5-14.5 RED CELL DISTRIBUTION WIDTH SD (test code=RDW-SD) 54.7 fL 37.0-54.0 PLATELET COUNT (test code=PLT) 334 x10 3/uL 150-400 MEAN PLATELET VOLUME (test code=MPV) 10.9 fL 7.0-9.0 NEUTROPHIL % (test code=NT%) 74.4 % 56.0-77.0 IMMATURE GRANULOCYTE % (test code=IG%) 0.3 % 0.0-2.0 LYMPHOCYTE % (test code=LY%) 17.2 % 14.0-32.0 MONOCYTE % (test code=MO%) 7.7 % 4.8-9.0 EOSINOPHIL % (test code=EO%) 0.1 % 0.3-3.7 BASOPHIL % (test code=BA%) 0.3 % 0.0-2.0 NUCLEATED RBC % (test code=NRBC%) 0.0 % 0-0 NEUTROPHIL # (test code=NT#) 5.91 x10 3/uL 2.0-7.6 IMMATURE GRANULOCYTE # (test code=IG#) 0.02 x10 3/uL 0.00-0.03 LYMPHOCYTE # (test code=LY#) 1.36 x10 3/uL 1.0-3.8 MONOCYTE # (test code=MO#) 0.61 x10 3/uL 0.1-0.8 EOSINOPHIL # (test code=EO#) 0.01 x10 3/uL 0.0-0.2 BASOPHIL # (test code=BA#) 0.02 x10 3/uL 0.0-0.2 NUCLEATED RBC # (test code=NRBC#) 0.00 x10 3/uL 0.0-0.1 MANUAL DIFF REQUIRED (test code=MDIFF) NO DRUGS OF ABUSE SCREEN [id number] 18:49:00* Test Item Value Reference Range Comments URN COCAINE (test code=COCAURN) NEGATIVE NEGATIVE URN CANNABINOIDS (test code=CANNABURN) POSITIVE NEGATIVE URN AMPHETAMINE (test code=AMPHETURN) NEGATIVE NEGATIVE URN BARBITURATE (test code=BARBITURN) NEGATIVE NEGATIVE URN BENZODIAZEPINE (test code=BENZOURN) POSITIVE NEGATIVE Cut-off value:200 ng/mL URN OPIATES (test code=OPIATURN) NEGATIVE NEGATIVE Cut-off value:2000 ng/mL URN PHENCYCLIDINE (PCP) (test code=PHENCURN) NEGATIVE NEGATIVE Cutoffs:Barbiturates 200 ng/mLBenzodiazepines 200 ng/mLTHC Cannabinoids 50 ng/mLOpiates(Morphine) 2000 ng/mLAmphetamine 1000 ng/mLCocaine 300 ng/mLPCP phencyclidine 25 ng/mL Unconfirmed screening results shouldnot be used for non-medical purposes. URINALYSIS [id number] 18:48:00* Test Item Value Reference Range Comments UA COLOR (test code=COLU) YELLOW YEL/STRAW UA APPEARANCE (test code=APPU) CLOUDY CLEAR UA GLUCOSE DIPSTICK (test code=DGLUU) 1+ NEGATIVE UA BILIRUBIN DIPSTICK (test code=BILU) NEGATIVE NEGATIVE UA KETONE DIPSTICK (test code=KETU) TRACE NEGATIVE UA SPECIFIC GRAVITY (test code=SGU) 1.050 1.005-1.030 UA BLOOD DIPSTICK (test code=ZABRINA) NEGATIVE NEGATIVE UA PH DIPSTICK (test code=ROC) 9.0 5.0-7.0 UA PROTEIN DIPSTICK (test code=PROU) 1+ NEGATIVE UA UROBILINIOGEN DIPSTICK (test code=URO) 0.2 mg/dL 0.2-1.0 UA NITRITE DIPSTICK (test code=NURA) NEGATIVE NEGATIVE UA LEUKOCYTE ESTERASE DIPSTICK (test code=LEUU) NEGATIVE NEGATIVE UA RBC (test code=RBCU) 11-20 RBC/HPF 0-3 UA WBC NO REFLEX (test code=WBCUCL) NONE SEEN WBC/HPF 0-3 UA BACTERIA (test code=BACU) 1+ /HPF NONE SEEN UA SQUAMOUS CELLS (test code=SQU) 6-10 /HPF NONE SEEN UA MUCUS (test code=MUCU) TRACE /LPF NONE SEEN COMMENTS: Clean CatchDRUGS OF ABUSE SCREEN [id number] 18:40:00* Test Item Value Reference Range Comments URN COCAINE (test code=COCAURN) NEGATIVE NEGATIVE URN CANNABINOIDS (test code=CANNABURN) NEGATIVE URN AMPHETAMINE (test code=AMPHETURN) NEGATIVE NEGATIVE URN BARBITURATE (test code=BARBITURN) NEGATIVE NEGATIVE URN BENZODIAZEPINE (test code=BENZOURN) NEGATIVE URN OPIATES (test code=OPIATURN) NEGATIVE NEGATIVE Cut-off value:2000 ng/mL URN PHENCYCLIDINE (PCP) (test code=PHENCURN) NEGATIVE NEGATIVE Cutoffs:Barbiturates 200 ng/mLBenzodiazepines 200 ng/mLTHC Cannabinoids 50 ng/mLOpiates(Morphine) 2000 ng/mLAmphetamine 1000 ng/mLCocaine 300 ng/mLPCP phencyclidine 25 ng/mL Unconfirmed screening results shouldnot be used for non-medical purposes. - CT ABD PELVIS W/[id number] 16:45:00 Name: [facility] : 1990 Age/S: 28 / F [address] [place] [address] Unit #: [id number] Loc: [place] [address] Phys: Kelli Conklin [facility] Acct: [id number] Dis Date: Status: REG ER PHONE #: [phone] Exam Date: 11/22/2018 1615 FAX #: [phone] Reason: LLQ ABDOMINAL PAIN EXAMS: CPT CODE: [id number] CT ABD PELVIS W/CONT 05748 PROCEDURE: CT ABDOMEN AND PELVIS WITH CONTRAST INDICATION: LLQ ABDOMINAL PAIN COMPARISON: 07/17/2018, 05/22/2018 TECHNIQUE: Helical imaging was performed diaphragm through the symphysis with multiplanar reconstructions. IV CONTRAST: 100 mL Isovue- 300. GI CONTRAST: None. CT imaging performed at this location utilizes radiation dose optimization techniques which include one or more of the following: -Automated exposure control -Adjustment of the mA and/or kV according to patient size -Use of iterative reconstruction technique CT Radiation Dose DLP 321.76 mGy-cm FINDINGS: LOWER CHEST: The lung bases are clear. LIVER: 4 mm low- attenuation lesion segment 2 left lobe of liver, axial series 2 image 25, too small to accurately characterize, grossly stable and compatible with benign finding. The liver is otherwise normal. The portal venous system is patent. BILIARY TREE: No biliary dilatation. GALLBLADDER: Cholecystectomy SPLEEN: Normal. PANCREAS: Normal. ADRENALS: Normal. KIDNEYS: Sym metric renal cortical enhancement. Excreted contrast in nondilated collect ing systems limiting assessment for nonobstructing calculi. No hydronephro sis. 7 mm circumscribed low-attenuation lesion lower pole left kidney is t oo small to characterize, stable and compatible with benign finding. BOWEL: The stomach, small bowel and colon are unremarkable. APPENDIX: Appendectomy PAGE 1 Signed Repor t (CONTINUED) Name: [facility]LEY GAYLE [facility] : 1990 Age/S: 28 / F [address] [place] [address] Unit #: [id number] Loc: [place] [address] Phys: Kelli Conklin [facility] Acct: [id number] Dis Date: Status: REG ER PHONE #: [phone] Exam Date: 11/22/2018 1615 FAX #: [phone] Reason: LLQ ABDOMINAL PAIN EXAMS: CPT C ODE: [id number] CT ABD PELVIS W/CONT 57800 <Continued> PERITONEUM: No free intraperitoneal fluid or air. RETROPERITONEUM: No adenopathy. The aorta is normal. PELVIS: No pelvic mass. The uterus is surgically absent. Urinary bladder is unremarkable. MUSCULOSKELETAL: The skeleton is intact. IMPRESSION: 1. No acute abnormality demonstrated to account for the patient's symptoms. 2. Subcentimeter liver and left renal cortical lesions are too small to characterize, compatible with benign findings. In the absence of risk factors for malignancy, no further workup is required. SL: [id number] at 1645 Reported and signed by: Adolfo Miller M.D. CC: Yoni Higgins DO; Kelli Conklin Technologist:Rosa Francisco RT(R)(CT) CTDI: DLP: Trnscb Date/Time: 11/22/2018 (494) t.VALERY Orig Print D/T: S: 11/22/2018 (9394) PAGE 2 Signed Report COMPREHENSIVE METABOLIC PANEL 2018-11-22 14:49:00* Test Item Value Reference Range Comments SODIUM (test code=NA) 136 mEq/L 134-147 POTASSIUM (test code=K) 4.8 mEq/L 3.4-5.0 CHLORIDE (test code=CL) 107 mEq/L 100-108 CARBON DIOXIDE (test code=CO2) 23 mEq/L 21-33 ANION GAP (test code=GAP) 11 0-20 GLUCOSE (test code=GLU) 122 mg/dL 70-110 BLOOD UREA NITROGEN (test code=BUN) 9 mg/dL 7-18 GLOMERULAR FILTRATION RATE (test code=GFR) 98.3 105-110 Units of measure=ml/min/1.73 m2 CREATININE (test code=CREAT) 0.7 mg/dL 0.6-1.3 TOTAL PROTEIN (test code=PROT) 8.4 g/dL 6.4-8.2 ALBUMIN (test code=ALB) 3.90 g/dL 3.4-5.0 CALCIUM (test code=CA) 9.1 mg/dL 8.0-10.5 BILIRUBIN TOTAL (test code=BILT) 0.4 MG/DL <1.5 SGOT/AST (test code=AST) 39 IUnit/L 15-37 SGPT/ALT (test code=ALT) 53 IUnit/L 15-65 ALKALINE PHOSPHATASE TOTAL (test code=ALKP) 108 IUnit/L 20-125 HEPATIC FUNCTION [id number] 14:49:00* Test Item Value Reference Range Comments BILIRUBIN DIRECT (test code=BILD) < 0.10 MG/DL 0.0-0.30 BILIRUBIN INDIRECT (test code=BILIND) 0.30 MG/DL [id number] 14:49:00* Test Item Value Reference Range Comments LIPASE (test code=LIP) 36 IUnit/L 73-393 HCG SERUM [id number] 14:49:00* Test Item Value Reference Range Comments HCG SERUM QUAL (test code=HCGQL) SERUM NEGATIVE NEGATIVE [id number] 14:49:00* Test Item Value Reference Range Comments TROPONIN-I (test code=TROPI) < 0.015 ng/mL 0.000-0.045 Negative: <=0.045 Positive: >=0.046 Correlation with serial results, other cardiac markers andclinical findings is necessary to determine the clinicalsignificance of this result. Results using different methodologies should not be comparedto one another as quantitative results may vary by method. LACTIC [id number] 14:48:00* Test Item Value Reference Range Comments LACTIC ACID (test code=LACT) 1.3 mmol/L 0.4-1.9 COMPREHENSIVE METABOLIC [id number] 14:45:00* Test Item Value Reference Range Comments SODIUM (test code=NA) 136 mEq/L 134-147 POTASSIUM (test code=K) 4.8 mEq/L 3.4-5.0 CHLORIDE (test code=CL) 107 mEq/L 100-108 CARBON DIOXIDE (test code=CO2) mEq/L 21-33 ANION GAP (test code=GAP) 0-20 GLUCOSE (test code=GLU) mg/dL 70-110 BLOOD UREA NITROGEN (test code=BUN) mg/dL 7-18 GLOMERULAR FILTRATION RATE (test code=GFR) 105-110 CREATININE (test code=CREAT) mg/dL 0.6-1.3 TOTAL PROTEIN (test code=PROT) g/dL 6.4-8.2 ALBUMIN (test code=ALB) g/dL 3.4-5.0 CALCIUM (test code=CA) mg/dL 8.0-10.5 BILIRUBIN TOTAL (test code=BILT) MG/DL <1.5 SGOT/AST (test code=AST) IUnit/L 15-37 SGPT/ALT (test code=ALT) IUnit/L 15-65 ALKALINE PHOSPHATASE TOTAL (test code=ALKP) IUnit/L 20-125 HEPATIC FUNCTION [id number] 14:45:00* Test Item Value Reference Range Comments BILIRUBIN DIRECT (test code=BILD) MG/DL 0.0-0.30 [id number] 14:45:00* Test Item Value Reference Range Comments LIPASE (test code=LIP) IUnit/L 73-393 HCG SERUM [id number] 14:45:00* Test Item Value Reference Range Comments HCG SERUM QUAL (test code=HCGQL) SERUM NEGATIVE NEGATIVE [id number] 14:45:00* Test Item Value Reference Range Comments TROPONIN-I (test code=TROPI) ng/mL 0.000-0.045 COMPREHENSIVE METABOLIC [id number] 14:38:00* Test Item Value Reference Range Comments SODIUM (test code=NA) 136 mEq/L 134-147 POTASSIUM (test code=K) 4.8 mEq/L 3.4-5.0 CHLORIDE (test code=CL) 107 mEq/L 100-108 CARBON DIOXIDE (test code=CO2) mEq/L 21-33 ANION GAP (test code=GAP) 0-20 GLUCOSE (test code=GLU) mg/dL 70-110 BLOOD UREA NITROGEN (test code=BUN) mg/dL 7-18 GLOMERULAR FILTRATION RATE (test code=GFR) 105-110 CREATININE (test code=CREAT) mg/dL 0.6-1.3 TOTAL PROTEIN (test code=PROT) g/dL 6.4-8.2 ALBUMIN (test code=ALB) g/dL 3.4-5.0 CALCIUM (test code=CA) mg/dL 8.0-10.5 BILIRUBIN TOTAL (test code=BILT) MG/DL <1.5 SGOT/AST (test code=AST) IUnit/L 15-37 SGPT/ALT (test code=ALT) IUnit/L 15-65 ALKALINE PHOSPHATASE TOTAL (test code=ALKP) IUnit/L 20-125 HEPATIC FUNCTION [id number] 14:38:00* Test Item Value Reference Range Comments BILIRUBIN DIRECT (test code=BILD) MG/DL 0.0-0.30 [id number] 14:38:00* Test Item Value Reference Range Comments LIPASE (test code=LIP) IUnit/L 73-393 HCG SERUM [id number] 14:38:00* Test Item Value Reference Range Comments HCG SERUM QUAL (test code=HCGQL) NEGATIVE [id number] 14:38:00* Test Item Value Reference Range Comments TROPONIN-I (test code=TROPI) ng/mL 0.000-0.045 CBC W/AUTO [id number] 11:51:00* Test Item Value Reference Range Comments WHITE BLOOD CELL (test code=WBC) 8.77 x10 3/uL 4.5-11.0 RED BLOOD CELL (test code=RBC) 3.94 x10 6/uL 3.54-5.02 HEMOGLOBIN (test code=HGB) 9.9 g/dL 11.0-15.0 HEMATOCRIT (test code=HCT) 32.4 % 33.0-45.0 MEAN CELL VOLUME (test code=MCV) 82.2 fL 81.0-99.0 MEAN CELL HGB (test code=MCH) 25.1 pg 27.0-33.0 MEAN CELL HGB CONCETRATION (test code=MCHC) 30.6 g/dL 33.0-37.0 RED CELL DISTRIBUTION WIDTH CV (test code=RDW) 19.1 % 11.5-14.5 RED CELL DISTRIBUTION WIDTH SD (test code=RDW-SD) 57.3 fL 37.0-54.0 PLATELET COUNT (test code=PLT) 352 x10 3/uL 150-400 MEAN PLATELET VOLUME (test code=MPV) 11.3 fL 7.0-9.0 NEUTROPHIL % (test code=NT%) 88.4 % 56.0-77.0 IMMATURE GRANULOCYTE % (test code=IG%) 0.2 % 0.0-2.0 LYMPHOCYTE % (test code=LY%) 8.6 % 14.0-32.0 MONOCYTE % (test code=MO%) 2.4 % 4.8-9.0 EOSINOPHIL % (test code=EO%) 0.1 % 0.3-3.7 BASOPHIL % (test code=BA%) 0.3 % 0.0-2.0 NUCLEATED RBC % (test code=NRBC%) 0.0 % 0-0 NEUTROPHIL # (test code=NT#) 7.75 x10 3/uL 2.0-7.6 IMMATURE GRANULOCYTE # (test code=IG#) 0.02 x10 3/uL 0.00-0.03 LYMPHOCYTE # (test code=LY#) 0.75 x10 3/uL 1.0-3.8 MONOCYTE # (test code=MO#) 0.21 x10 3/uL 0.1-0.8 EOSINOPHIL # (test code=EO#) 0.01 x10 3/uL 0.0-0.2 BASOPHIL # (test code=BA#) 0.03 x10 3/uL 0.0-0.2 NUCLEATED RBC # (test code=NRBC#) 0.00 x10 3/uL 0.0-0.1 MANUAL DIFF REQUIRED (test code=MDIFF) NO Blood [id number] 12:01:50No growth at 5 days.Blood [id number] 12:01:50No growth at 5 days.Comprehensive Metabolic [id number] 11:53:36* Test Item Value Reference Range Comments Sodium Level (test code=Sodium Level) 141.0 mmol/L 135.0-145.0 Potassium Level (test code=Potassium Level) 4.3 mmol/L 3.5-5.1 Chloride Level (test code=Chloride Level) 105 mmol/L 98-105 CO2 (test code=CO2) 27 mmol/L 22-29 Anion Gap (test code=Anion Gap) 9 mmol/L 7-16 BUN (test code=BUN) 8.60 mg/dL 6.00-20.00 Creatinine Level (test code=Creatinine Level) 0.60 mg/dL 0.50-0.90 BUN/Creat Ratio (test code=BUN/Creat Ratio) 14 Glucose Level (test code=Glucose Level) 89 mg/dL 70-115 Calcium Level (test code=Calcium Level) 9.9 mg/dL 8.3-10.5 Alk Phos (test code=Alk Phos) 106 U/L 35-104 Bilirubin Total (test code=Bilirubin Total) 0.3 mg/dL 0.1-0.9 Albumin Level (test code=Albumin Level) 4.5 g/dL 3.5-5.2 Protein Total (test code=Protein Total) 7.3 g/dL 6.4-8.3 ALT (test code=ALT) 49 U/L 1-33 AST (test code=AST) 29 U/L 1-32 Globulin (test code=Globulin) 2.8 g/dL 2.9-3.1 A/G Ratio (test code=A/G Ratio) 1.6 ratio Lipase [id number] 11:53:36* Test Item Value Reference Range Comments Lipase Level (test code=Lipase Level) 14 U/L 13-60 Comprehensive Metabolic [id number] 11:53:36* Test Item Value Reference Range Comments Sodium Level (test code=Sodium Level) 141.0 mmol/L 135.0-145.0 Potassium Level (test code=Potassium Level) 4.3 mmol/L 3.5-5.1 Chloride Level (test code=Chloride Level) 105 mmol/L 98-105 CO2 (test code=CO2) 27 mmol/L 22-29 Anion Gap (test code=Anion Gap) 9 mmol/L 7-16 BUN (test code=BUN) 8.60 mg/dL 6.00-20.00 Creatinine Level (test code=Creatinine Level) 0.60 mg/dL 0.50-0.90 BUN/Creat Ratio (test code=BUN/Creat Ratio) 14 Glucose Level (test code=Glucose Level) 89 mg/dL 70-115 Calcium Level (test code=Calcium Level) 9.9 mg/dL 8.3-10.5 Alk Phos (test code=Alk Phos) 106 U/L 35-104 Bilirubin Total (test code=Bilirubin Total) 0.3 mg/dL 0.1-0.9 Albumin Level (test code=Albumin Level) 4.5 g/dL 3.5-5.2 Protein Total (test code=Protein Total) 7.3 g/dL 6.4-8.3 ALT (test code=ALT) 49 U/L 1-33 AST (test code=AST) 29 U/L 1-32 Globulin (test code=Globulin) 2.8 g/dL 2.9-3.1 A/G Ratio (test code=A/G Ratio) 1.6 ratio eGFR AA (test code=eGFR AA) >60 mL/min/1.73 m2 eGFR (estimated Glomerular Filtration Rate) is an estimated value, calculated from the patient's serum creatinine using the MDRD equation. It is NOT the patient's actual GFR. The eGFR provides a more clinically useful measure of kidney disease than serum creatinine alone.This calculation takes sex and race into account, if the information is provided. If the race is not provided, and the patient is -[place], multiply by 1.212. If sex is not provided, and the patient is female, multiply by 0.742. Results for patients <18 years of age have not been validated by the MDRD study and should be interpreted with caution. eGFR Result Interpretation:eGFR > or=60 is in the Normal RangeeGFR < 60 may mean kidney diseaseeGFR < 15 may mean kidney failure Ranges recommended by the [employer] Foundation, http://nkdep.nih.gov Comprehensive Metabolic [id number] 11:53:36* Test Item Value Reference Range Comments Sodium Level (test code=Sodium Level) 141.0 mmol/L 135.0-145.0 Potassium Level (test code=Potassium Level) 4.3 mmol/L 3.5-5.1 Chloride Level (test code=Chloride Level) 105 mmol/L 98-105 CO2 (test code=CO2) 27 mmol/L 22-29 Anion Gap (test code=Anion Gap) 9 mmol/L 7-16 BUN (test code=BUN) 8.60 mg/dL 6.00-20.00 Creatinine Level (test code=Creatinine Level) 0.60 mg/dL 0.50-0.90 BUN/Creat Ratio (test code=BUN/Creat Ratio) 14 Glucose Level (test code=Glucose Level) 89 mg/dL 70-115 Calcium Level (test code=Calcium Level) 9.9 mg/dL 8.3-10.5 Alk Phos (test code=Alk Phos) 106 U/L 35-104 Bilirubin Total (test code=Bilirubin Total) 0.3 mg/dL 0.1-0.9 Albumin Level (test code=Albumin Level) 4.5 g/dL 3.5-5.2 Protein Total (test code=Protein Total) 7.3 g/dL 6.4-8.3 ALT (test code=ALT) 49 U/L 1-33 AST (test code=AST) 29 U/L 1-32 Globulin (test code=Globulin) 2.8 g/dL 2.9-3.1 A/G Ratio (test code=A/G Ratio) 1.6 ratio eGFR AA (test code=eGFR AA) >60 mL/min/1.73 m2 eGFR (estimated Glomerular Filtration Rate) is an estimated value, calculated from the patient's serum creatinine using the MDRD equation. It is NOT the patient's actual GFR. The eGFR provides a more clinically useful measure of kidney disease than serum creatinine alone.This calculation takes sex and race into account, if the information is provided. If the race is not provided, and the patient is -[place], multiply by 1.212. If sex is not provided, and the patient is female, multiply by 0.742. Results for patients <18 years of age have not been validated by the MDRD study and should be interpreted with caution. eGFR Result Interpretation:eGFR > or=60 is in the Normal RangeeGFR < 60 may mean kidney diseaseeGFR < 15 may mean kidney failure Ranges recommended by the National Kid[employer] Foundation, http://nkdep.nih.gov eGFR Non-AA (test code=eGFR Non-AA) >60.00 mL/min/1.73 m2 eGFR (estimated Glomerular Filtration Rate) is an estimated value, calculated from the patient's serum creatinine using the MDRD equation. It is NOT the patient's actual GFR. The eGFR provides a more clinically useful measure of kidney disease than serum creatinine alone.This calculation takes sex and race into account, if the information is provided. If the race is not provided, and the patient is -[place], multiply by 1.212. If sex is not provided, and the patient is female, multiply by 0.742. Results for patients <18 years of age have not been validated by the MDRD study and should be interpreted with caution. eGFR Result Interpretation:eGFR > or=60 is in the Normal RangeeGFR < 60 may mean kidney diseaseeGFR < 15 may mean kidney failure Ranges recommended by the National Kid[employer] Foundation, http://nkdep.nih.gov Lactic Acid, Plasma (Venous)2018-11-16 11:48:43* Test Item Value Reference Range Comments Lactic Acid, Plasma (Venous) (test code=Lactic Acid, Plasma (Venous)) 0.9 mmol/L 0.5-1.9 Complete Blood Count with [id number] 11:38:14* Test Item Value Reference Range Comments WBC (test code=WBC) 6.7 x10 4.4-10.5 RBC (test code=RBC) 4.07 x10 3.75-5.20 Hgb (test code=Hgb) 10.3 g/dL 12.2-14.8 Hct (test code=Hct) 33.0 % 36.5-44.4 MCV (test code=MCV) 81.10 fL 80.00-100.00 MCHC (test code=MCHC) 31.20 g/dL 32.00-37.50 MCH (test code=MCH) 25.3 pg 27.0-32.5 RDW CV (test code=RDW CV) 19.2 % 11.5-14.5 Platelets (test code=Platelets) 331.0 x10 140.0-440.0 MPV (test code=MPV) 11.2 fL Slide Review (test code=Slide Review) Auto Auto Result created by [email or web address] nRBC (test code=nRBC) 0 NRBC Abs (test code=NRBC Abs) 0.00 x10 IPF (test code=IPF) 0 % Automated [id number] 11:38:14* Test Item Value Reference Range Comments Neutro Auto (test code=Neutro Auto) 69.8 % 36.0-70.0 Lymph Auto (test code=Lymph Auto) 24.1 % 12.0-44.0 Piute Auto (test code=Piute Auto) 4.8 % 0.0-11.0 Eos, Auto (test code=Eos, Auto) 0.9 % 0.0-7.0 Basophil Auto (test code=Basophil Auto) 0.3 % 0.0-2.0 Neutro Absolute (test code=Neutro Absolute) 4.7 x10 1.6-7.4 Lymph Absolute (test code=Lymph Absolute) 1.62 x10 .50-4.60 Piute Absolute (test code=Piute Absolute) .32 x10 .00-1.20 Eos Absolute (test code=Eos Absolute) 0.06 x10 0.00-0.74 Baso Absolute (test code=Baso Absolute) 0.02 x10 0.00-0.21 IG [id number] 11:38:14* Test Item Value Reference Range Comments IG (test code=IG) 0.1 % 0.0-5.0 IG Abs (test code=IG Abs) 0 x10 HCG Qualitative [id number] 11:21:51* Test Item Value Reference Range Comments hCG Ur (test code=hCG Ur) Negative If the result is "Negative" in patients suspected to be , recommend retest with a sample obtained 48 to 72 hours later, or by ordering a quantitative assay. If the result is "Borderline" bella ting should be repeated in 48 to 72 hours. Lot # (test code=Lot #) [id number] Expiration Dt (test code=Expiration Dt) 12/30/2019 Neg Control (test code=Neg Control) Negative Pos Control (test code=Pos Control) Positive Internal QC (test code=Internal QC) Acceptable Urinalysis with Culture, if [id number] 11:20:44* Test Item Value Reference Range Comments UA Color (test code=UA Color) YELLO Yellow UA Appear (test code=UA Appear) CLEAR Clear UA pH (test code=UA pH) 9 UA Spec Grav (test code=UA Spec Grav) 1.023 1.001-1.035 UA Glucose (test code=UA Glucose) NEG Negative UA Bili (test code=UA Bili) NEG Negative UA Ketones (test code=UA Ketones) NEG Negative UA Blood (test code=UA Blood) NEG Negative UA Protein (test code=UA Protein) NEG Negative UA Urobilinogen (test code=UA Urobilinogen) 1 mg/dL >0.2 UA Nitrite (test code=UA Nitrite) NEG Negative UA Leuk Est (test code=UA Leuk Est) NEG Negative UA Micro Ind? (test code=UA Micro Ind?) Not Indicated Not Indicated Result created by rule GL_SJM_UA_MICRO_IND DRUGS OF ABUSE SCREEN [id number] 08:56:00* Test Item Value Reference Range Comments URN COCAINE (test code=COCAURN) NEGATIVE NEGATIVE URN CANNABINOIDS (test code=CANNABURN) POSITIVE NEGATIVE URN AMPHETAMINE (test code=AMPHETURN) NEGATIVE NEGATIVE URN BARBITURATE (test code=BARBITURN) NEGATIVE NEGATIVE URN BENZODIAZEPINE (test code=BENZOURN) POSITIVE NEGATIVE Cut-off value:200 ng/mL URN OPIATES (test code=OPIATURN) NEGATIVE NEGATIVE Cut-off value:2000 ng/mL URN PHENCYCLIDINE (PCP) (test code=PHENCURN) NEGATIVE NEGATIVE Cutoffs:Barbiturates 200 ng/mLBenzodiazepines 200 ng/mLTHC Cannabinoids 50 ng/mLOpiates(Morphine) 2000 ng/mLAmphetamine 1000 ng/mLCocaine 300 ng/mLPCP phencyclidine 25 ng/mL Unconfirmed screening results shouldnot be used for non-medical purposes. DRUGS OF ABUSE SCREEN [id number] 08:47:00* Test Item Value Reference Range Comments URN COCAINE (test code=COCAURN) NEGATIVE NEGATIVE URN CANNABINOIDS (test code=CANNABURN) NEGATIVE URN AMPHETAMINE (test code=AMPHETURN) NEGATIVE NEGATIVE URN BARBITURATE (test code=BARBITURN) NEGATIVE NEGATIVE URN BENZODIAZEPINE (test code=BENZOURN) NEGATIVE URN OPIATES (test code=OPIATURN) NEGATIVE NEGATIVE Cut-off value:2000 ng/mL URN PHENCYCLIDINE (PCP) (test code=PHENCURN) NEGATIVE NEGATIVE Cutoffs:Barbiturates 200 ng/mLBenzodiazepines 200 ng/mLTHC Cannabinoids 50 ng/mLOpiates(Morphine) 2000 ng/mLAmphetamine 1000 ng/mLCocaine 300 ng/mLPCP phencyclidine 25 ng/mL Unconfirmed screening results shouldnot be used for non-medical purposes. CBC W/AUTO [id number] 08:45:00* Test Item Value Reference Range Comments WHITE BLOOD CELL (test code=WBC) 8.04 x10 3/uL 4.5-11.0 RED BLOOD CELL (test code=RBC) 4.09 x10 6/uL 3.54-5.02 HEMOGLOBIN (test code=HGB) 10.5 g/dL 11.0-15.0 HEMATOCRIT (test code=HCT) 37.1 % 33.0-45.0 MEAN CELL VOLUME (test code=MCV) 90.7 fL 81.0-99.0 MEAN CELL HGB (test code=MCH) 25.7 pg 27.0-33.0 MEAN CELL HGB CONCETRATION (test code=MCHC) 28.3 g/dL 33.0-37.0 RED CELL DISTRIBUTION WIDTH CV (test code=RDW) 25.8 % 11.5-14.5 RED CELL DISTRIBUTION WIDTH SD (test code=RDW-SD) 73.1 fL 37.0-54.0 PLATELET COUNT (test code=PLT) 307 x10 3/uL 150-400 MEAN PLATELET VOLUME (test code=MPV) 12.4 fL 7.0-9.0 NEUTROPHIL % (test code=NT%) 79.5 % 56.0-77.0 IMMATURE GRANULOCYTE % (test code=IG%) 0.4 % 0.0-2.0 LYMPHOCYTE % (test code=LY%) 15.5 % 14.0-32.0 MONOCYTE % (test code=MO%) 3.6 % 4.8-9.0 EOSINOPHIL % (test code=EO%) 0.6 % 0.3-3.7 BASOPHIL % (test code=BA%) 0.4 % 0.0-2.0 NUCLEATED RBC % (test code=NRBC%) 0.0 % 0-0 NEUTROPHIL # (test code=NT#) 6.39 x10 3/uL 2.0-7.6 IMMATURE GRANULOCYTE # (test code=IG#) 0.03 x10 3/uL 0.00-0.03 LYMPHOCYTE # (test code=LY#) 1.25 x10 3/uL 1.0-3.8 MONOCYTE # (test code=MO#) 0.29 x10 3/uL 0.1-0.8 EOSINOPHIL # (test code=EO#) 0.05 x10 3/uL 0.0-0.2 BASOPHIL # (test code=BA#) 0.03 x10 3/uL 0.0-0.2 NUCLEATED RBC # (test code=NRBC#) 0.00 x10 3/uL 0.0-0.1 MANUAL DIFF REQUIRED (test code=MDIFF) NO UA RFLX MICR CULT IF [id number] 08:37:00* Test Item Value Reference Range Comments UA COLOR (test code=COLU) YELLOW YEL/STRAW UA APPEARANCE (test code=APPU) SL CLOUDY CLEAR UA GLUCOSE DIPSTICK (test code=DGLUU) NEGATIVE NEGATIVE UA BILIRUBIN DIPSTICK (test code=BILU) NEGATIVE NEGATIVE UA KETONE DIPSTICK (test code=KETU) NEGATIVE NEGATIVE UA SPECIFIC GRAVITY (test code=SGU) 1.016 1.005-1.030 UA BLOOD DIPSTICK (test code=ZABRINA) NEGATIVE NEGATIVE UA PH DIPSTICK (test code=ROC) 6.0 5.0-7.0 UA PROTEIN DIPSTICK (test code=PROU) NEGATIVE NEGATIVE UA UROBILINIOGEN DIPSTICK (test code=URO) 0.2 mg/dL 0.2-1.0 UA NITRITE DIPSTICK (test code=NURA) NEGATIVE NEGATIVE UA LEUKOCYTE ESTERASE DIPSTICK (test code=LEUU) NEGATIVE NEGATIVE UA WBC (test code=WBCU) 0-3 WBC/HPF 0-3 UA RBC (test code=RBCU) 4-10 RBC/HPF 0-3 UA WBC NO REFLEX (test code=WBCUCL) 0-3 WBC/HPF 0-3 UA BACTERIA (test code=BACU) TRACE /HPF NONE SEEN UA SQUAMOUS CELLS (test code=SQU) 6-10 /HPF NONE SEEN UA MUCUS (test code=MUCU) TRACE /LPF NONE SEEN Indication for culture: Suprapubic PainSpecimen Description: MID STREAM LACTIC ACID [id number] 08:02:00* Test Item Value Reference Range Comments LACTIC ACID POC (test code=LACTP) 1.7 MMOL/L 0.90-1.70 Performed by certified black ash burner operator at [facility] UR HCG [id number] 17:04:00* Test Item Value Reference Range Comments UR HCG QUAL (test code=HCGQLU) NEGATIVE NEGATIVE URINALYSIS [id number] 17:04:00* Test Item Value Reference Range Comments UA COLOR (test code=COLU) YELLOW YEL/STRAW UA APPEARANCE (test code=APPU) CLEAR CLEAR UA GLUCOSE DIPSTICK (test code=DGLUU) NEGATIVE NEGATIVE UA BILIRUBIN DIPSTICK (test code=BILU) NEGATIVE NEGATIVE UA KETONE DIPSTICK (test code=KETU) NEGATIVE NEGATIVE UA SPECIFIC GRAVITY (test code=SGU) 1.017 1.005-1.030 UA BLOOD DIPSTICK (test code=ZABRINA) NEGATIVE NEGATIVE UA PH DIPSTICK (test code=ROC) 6.0 5.0-7.0 UA PROTEIN DIPSTICK (test code=PROU) NEGATIVE NEGATIVE UA UROBILINIOGEN DIPSTICK (test code=URO) 2.0 mg/dL 0.2-1.0 UA NITRITE DIPSTICK (test code=NURA) NEGATIVE NEGATIVE UA LEUKOCYTE ESTERASE DIPSTICK (test code=LEUU) NEGATIVE NEGATIVE UA RBC (test code=RBCU) 0-3 RBC/HPF 0-3 UA WBC NO REFLEX (test code=WBCUCL) 0-3 WBC/HPF 0-3 UA BACTERIA (test code=BACU) TRACE /HPF NONE SEEN UA SQUAMOUS CELLS (test code=SQU) 0-5 /HPF NONE SEEN UA HYALINE CAST (test code=HYALU) 3-5 /LPF NONE SEEN UA MUCUS (test code=MUCU) 4+ /LPF NONE SEEN COMPREHENSIVE METABOLIC [id number] 16:06:00* Test Item Value Reference Range Comments SODIUM (test code=NA) 138 mEq/L 134-147 POTASSIUM (test code=K) 4.2 mEq/L 3.4-5.0 SPECIMEN 1+ HEMOLYZED.Results known to be adversely affected by hemolysis are: Potassium Magnesium LDH Phosphorus CHLORIDE (test code=CL) 107 mEq/L 100-108 CARBON DIOXIDE (test code=CO2) 27 mEq/L 21-33 ANION GAP (test code=GAP) 8 0-20 GLUCOSE (test code=GLU) 92 mg/dL 70-110 BLOOD UREA NITROGEN (test code=BUN) 8 mg/dL 7-18 GLOMERULAR FILTRATION RATE (test code=GFR) 84.2 105-110 Units of measure=ml/min/1.73 m2 CREATININE (test code=CREAT) 0.8 mg/dL 0.6-1.3 TOTAL PROTEIN (test code=PROT) 8.0 g/dL 6.4-8.2 ALBUMIN (test code=ALB) 4.10 g/dL 3.4-5.0 CALCIUM (test code=CA) 9.3 mg/dL 8.0-10.5 BILIRUBIN TOTAL (test code=BILT) 0.50 mg/dL 0.0-1.0 SGOT/AST (test code=AST) 27 IUnit/L 15-37 SGPT/ALT (test code=ALT) 33 IUnit/L 15-65 ALKALINE PHOSPHATASE TOTAL (test code=ALKP) 82 IUnit/L 20-125 CBC W/AUTO [id number] 15:42:00* Test Item Value Reference Range Comments WHITE BLOOD CELL (test code=WBC) 6.17 x10 3/uL 4.5-11.0 RED BLOOD CELL (test code=RBC) 4.01 x10 6/uL 3.54-5.02 HEMOGLOBIN (test code=HGB) 10.4 g/dL 11.0-15.0 HEMATOCRIT (test code=HCT) 33.6 % 33.0-45.0 MEAN CELL VOLUME (test code=MCV) 83.8 fL 81.0-99.0 MEAN CELL HGB (test code=MCH) 25.9 pg 27.0-33.0 MEAN CELL HGB CONCETRATION (test code=MCHC) 31.0 g/dL 33.0-37.0 RED CELL DISTRIBUTION WIDTH CV (test code=RDW) 19.9 % 11.5-14.5 RED CELL DISTRIBUTION WIDTH SD (test code=RDW-SD) 60.9 fL 37.0-54.0 PLATELET COUNT (test code=PLT) 417 x10 3/uL 150-400 MEAN PLATELET VOLUME (test code=MPV) 11.1 fL 7.0-9.0 NEUTROPHIL % (test code=NT%) 43.4 % 56.0-77.0 IMMATURE GRANULOCYTE % (test code=IG%) 0.3 % 0.0-2.0 LYMPHOCYTE % (test code=LY%) 45.1 % 14.0-32.0 MONOCYTE % (test code=MO%) 6.8 % 4.8-9.0 EOSINOPHIL % (test code=EO%) 3.9 % 0.3-3.7 BASOPHIL % (test code=BA%) 0.5 % 0.0-2.0 NUCLEATED RBC % (test code=NRBC%) 0.0 % 0-0 NEUTROPHIL # (test code=NT#) 2.68 x10 3/uL 2.0-7.6 IMMATURE GRANULOCYTE # (test code=IG#) 0.02 x10 3/uL 0.00-0.03 LYMPHOCYTE # (test code=LY#) 2.78 x10 3/uL 1.0-3.8 MONOCYTE # (test code=MO#) 0.42 x10 3/uL 0.1-0.8 EOSINOPHIL # (test code=EO#) 0.24 x10 3/uL 0.0-0.2 BASOPHIL # (test code=BA#) 0.03 x10 3/uL 0.0-0.2 NUCLEATED RBC # (test code=NRBC#) 0.00 x10 3/uL 0.0-0.1 MANUAL DIFF REQUIRED (test code=MDIFF) NO Automated [id number] 07:44:23* Test Item Value Reference Range Comments Neutro Auto (test code=Neutro Auto) 61.1 % 36.0-70.0 Lymph Auto (test code=Lymph Auto) 29.0 % 12.0-44.0 Piute Auto (test code=Piute Auto) 5.9 % 0.0-11.0 Eos, Auto (test code=Eos, Auto) 3.3 % 0.0-7.0 Basophil Auto (test code=Basophil Auto) 0.4 % 0.0-2.0 Neutro Absolute (test code=Neutro Absolute) 4.8 x10 1.6-7.4 Lymph Absolute (test code=Lymph Absolute) 2.29 x10 .50-4.60 Piute Absolute (test code=Piute Absolute) .47 x10 .00-1.20 Eos Absolute (test code=Eos Absolute) 0.26 x10 0.00-0.74 Baso Absolute (test code=Baso Absolute) 0.03 x10 0.00-0.21 IG [id number] 07:44:23* Test Item Value Reference Range Comments IG (test code=IG) 0.3 % 0.0-5.0 IG Abs (test code=IG Abs) 0 x10 Complete Blood Count with [id number] 07:44:22* Test Item Value Reference Range Comments WBC (test code=WBC) 7.9 x10 4.4-10.5 RBC (test code=RBC) 4.32 x10 3.75-5.20 Hgb (test code=Hgb) 11.1 g/dL 12.2-14.8 Hct (test code=Hct) 36.0 % 36.5-44.4 MCV (test code=MCV) 83.30 fL 80.00-100.00 MCHC (test code=MCHC) 30.80 g/dL 32.00-37.50 MCH (test code=MCH) 25.7 pg 27.0-32.5 RDW CV (test code=RDW CV) 19.7 % 11.5-14.5 Platelets (test code=Platelets) 391.0 x10 140.0-440.0 MPV (test code=MPV) 10.8 fL Slide Review (test code=Slide Review) Auto Auto Result created by GL_SJM_SLIDE_REV_AUTO nRBC (test code=nRBC) 0 NRBC Abs (test code=NRBC Abs) 0.00 x10 IPF (test code=IPF) 0 % Comprehensive Metabolic [id number] 07:36:50* Test Item Value Reference Range Comments Sodium Level (test code=Sodium Level) 140.0 mmol/L 135.0-145.0 Potassium Level (test code=Potassium Level) 4.6 mmol/L 3.5-5.1 Chloride Level (test code=Chloride Level) 107 mmol/L 98-105 CO2 (test code=CO2) 19 mmol/L 22-29 Anion Gap (test code=Anion Gap) 14 mmol/L 7-16 BUN (test code=BUN) 12.10 mg/dL 6.00-20.00 Creatinine Level (test code=Creatinine Level) 0.80 mg/dL 0.50-0.90 BUN/Creat Ratio (test code=BUN/Creat Ratio) 15 Glucose Level (test code=Glucose Level) 111 mg/dL 70-115 Calcium Level (test code=Calcium Level) 9.8 mg/dL 8.3-10.5 Alk Phos (test code=Alk Phos) 79 U/L 35-104 Bilirubin Total (test code=Bilirubin Total) 0.2 mg/dL 0.1-0.9 Albumin Level (test code=Albumin Level) 4.6 g/dL 3.5-5.2 Protein Total (test code=Protein Total) 7.6 g/dL 6.4-8.3 ALT (test code=ALT) 22 U/L 1-33 AST (test code=AST) See Comment U/L 1-32 Specimen Hemolyzed.AST=27 Globulin (test code=Globulin) 3.0 g/dL 2.9-3.1 A/G Ratio (test code=A/G Ratio) 1.5 ratio Comprehensive Metabolic [id number] 07:36:50* Test Item Value Reference Range Comments Sodium Level (test code=Sodium Level) 140.0 mmol/L 135.0-145.0 Potassium Level (test code=Potassium Level) 4.6 mmol/L 3.5-5.1 Chloride Level (test code=Chloride Level) 107 mmol/L 98-105 CO2 (test code=CO2) 19 mmol/L 22-29 Anion Gap (test code=Anion Gap) 14 mmol/L 7-16 BUN (test code=BUN) 12.10 mg/dL 6.00-20.00 Creatinine Level (test code=Creatinine Level) 0.80 mg/dL 0.50-0.90 BUN/Creat Ratio (test code=BUN/Creat Ratio) 15 Glucose Level (test code=Glucose Level) 111 mg/dL 70-115 Calcium Level (test code=Calcium Level) 9.8 mg/dL 8.3-10.5 Alk Phos (test code=Alk Phos) 79 U/L 35-104 Bilirubin Total (test code=Bilirubin Total) 0.2 mg/dL 0.1-0.9 Albumin Level (test code=Albumin Level) 4.6 g/dL 3.5-5.2 Protein Total (test code=Protein Total) 7.6 g/dL 6.4-8.3 ALT (test code=ALT) 22 U/L 1-33 AST (test code=AST) See Comment U/L 1-32 Specimen Hemolyzed.AST=27 Globulin (test code=Globulin) 3.0 g/dL 2.9-3.1 A/G Ratio (test code=A/G Ratio) 1.5 ratio eGFR AA (test code=eGFR AA) >60 mL/min/1.73 m2 eGFR (estimated Glomerular Filtration Rate) is an estimated value, calculated from the patient's serum creatinine using the MDRD equation. It is NOT the patient's actual GFR. The eGFR provides a more clinically useful measure of kidney disease than serum creatinine alone.This calculation takes sex and race into account, if the information is provided. If the race is not provided, and the patient is -[place], multiply by 1.212. If sex is not provided, and the patient is female, multiply by 0.742. Results for patients <18 years of age have not been validated by the MDRD study and should be interpreted with caution. eGFR Result Interpretation:eGFR > or=60 is in the Normal RangeeGFR < 60 may mean kidney diseaseeGFR < 15 may mean kidney failure Ranges recommended by the National Kidney Foundation, http://nkdep.nih.gov Lipase [id number] 07:36:50* Test Item Value Reference Range Comments Lipase Level (test code=Lipase Level) 14 U/L 13-60 Comprehensive Metabolic [id number] 07:36:50* Test Item Value Reference Range Comments Sodium Level (test code=Sodium Level) 140.0 mmol/L 135.0-145.0 Potassium Level (test code=Potassium Level) 4.6 mmol/L 3.5-5.1 Chloride Level (test code=Chloride Level) 107 mmol/L 98-105 CO2 (test code=CO2) 19 mmol/L 22-29 Anion Gap (test code=Anion Gap) 14 mmol/L 7-16 BUN (test code=BUN) 12.10 mg/dL 6.00-20.00 Creatinine Level (test code=Creatinine Level) 0.80 mg/dL 0.50-0.90 BUN/Creat Ratio (test code=BUN/Creat Ratio) 15 Glucose Level (test code=Glucose Level) 111 mg/dL 70-115 Calcium Level (test code=Calcium Level) 9.8 mg/dL 8.3-10.5 Alk Phos (test code=Alk Phos) 79 U/L 35-104 Bilirubin Total (test code=Bilirubin Total) 0.2 mg/dL 0.1-0.9 Albumin Level (test code=Albumin Level) 4.6 g/dL 3.5-5.2 Protein Total (test code=Protein Total) 7.6 g/dL 6.4-8.3 ALT (test code=ALT) 22 U/L 1-33 AST (test code=AST) See Comment U/L 1-32 Specimen Hemolyzed.AST=27 Globulin (test code=Globulin) 3.0 g/dL 2.9-3.1 A/G Ratio (test code=A/G Ratio) 1.5 ratio eGFR AA (test code=eGFR AA) >60 mL/min/1.73 m2 eGFR (estimated Glomerular Filtration Rate) is an estimated value, calculated from the patient's serum creatinine using the MDRD equation. It is NOT the patient's actual GFR. The eGFR provides a more clinically useful measure of kidney disease than serum creatinine alone.This calculation takes sex and race into account, if the information is provided. If the race is not provided, and the patient is -[place], multiply by 1.212. If sex is not provided, and the patient is female, multiply by 0.742. Results for patients <18 years of age have not been validated by the MDRD study and should be interpreted with caution. eGFR Result Interpretation:eGFR > or=60 is in the Normal RangeeGFR < 60 may mean kidney diseaseeGFR < 15 may mean kidney failure Ranges recommended by the National Kidney Foundation, http://nkdep.nih.gov eGFR Non-AA (test code=eGFR Non-AA) >60.00 mL/min/1.73 m2 eGFR (estimated Glomerular Filtration Rate) is an estimated value, calculated from the patient's serum creatinine using the MDRD equation. It is NOT the patient's actual GFR. The eGFR provides a more clinically useful measure of kidney disease than serum creatinine alone.This calculation takes sex and race into account, if the information is provided. If the race is not provided, and the patient is -[place], multiply by 1.212. If sex is not provided, and the patient is female, multiply by 0.742. Results for patients <18 years of age have not been validated by the MDRD study and should be interpreted with caution. 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 Deformity of the distal right ulnar and radius consistent with a chronic fracture w ith a fixation plate extending across the right wrist. The osseous s tructures are grossly intact. IMPRESSION: Chronic distal right r adius and ulna fractures status post ORIF. No acute osseous abnormality at 5997 Reported and signed by: Ag Holland M.D. CC: Henrique Trejo NP Technologist: Nickie Tran) Trnscrd Date/Time/By: 10/14/2018 () : By: MojganVTL Orig Print D/T: S: 10/14/2018 (3043) PAGE 1 Signed Report - XR FOREARM 2 VIEWS [id number] 09:36:00 Name: HOLLEY GAYLE [facility] : 1990 Age/S: 28 / F [address] Unit #: [id number] Loc: [place] [address] Phys: Ozzy Jensen MD Acct: [id number] Dis Date: Status: REG ER PHONE #: [phone] Exam Date: 09/26/2018929 FAX #: Reason: trauma, previous surgery due to metastatic dise EXAMS: CPT: [id number] XR [place] [address] [place] [id number] Fluoro Time: DAP (Gy m2): Air Kerma (mGy): EXAM: - XR FOREARM 2 VIEWS RT HISTORY: trauma, previous surgery due to metastatic disease Location code:C3 COMPARISON: 09/12/2018 FINDINGS: AP and lateral view of the right forearm is provided. Again seen are surgical changes of the distal radius and ulna with plate and screw arthrodesis of the radius to the carpus and 3rd metacarpal with Rc wire a rthrodesis about the carpal structures. The hardware appears intact and f ully engaged. There is no new fracture or malalignment. The osseous stru ctures are otherwise intact. IMPRESSION: 1. No acute os seous abnormality. at 0936 Reported and signed by: Capo Eddy MD CC: Ozzy Jensen MD PAGE 1 Signed Report Name: HEIDE GAYLE [facility] : 1990 Ag e/S: [address] [facility] Unit #: [id number] Loc: [place] [address] Phys: Ozzy Jensen MD Acct: [id number] Dis Date: Status: REG ER PHONE #: [phone] Exam Date: 09/26/2018 0930 FAX #: Reason: trauma, previous surgery due to metastatic dise EXAMS: CPT: [id number] XR [place] [address] [place] [id number] Fluoro Time: DAP (Gy m2): Air Kerma (mGy): <Continued> Technologist: RT Luann(R) Trnscb Date/Time: 09/26/2018 (935) [id number] Orig Print D/T: S: 09/26/2018 (1340) PAGE 2 Signed Report - XR FOREARM 2 VIEWS [id number] 13:38:00Patient Name: REDMONDHOLLEY LEE Unit No: [id number] EXAMS: CPT CODE: [id number] XR [place] [address] [place] [id number] EXAM: Right forearm series, 2 views Dictation location: A1 INDICATION: Right arm injury, history of fracture in the past COMPARISON: None. DISCUSSION: Frontal and lateral views of the right forearm are submitted. There has been previous fusion from the distal radius through the proximal metacarpals, with grossly intact hardware, which is only visualized in profile. No acute fracture is seen. There is been previous distal ulnar resection. IMPRESSION: 1. No acute bony abnormalities. 2. Previous fusion from the distal radius through the proximal metacarpals, with hardware which is grossly intact, only seen in profile. at 133 Reported and signed by: Sg Tucker M.D. CC: Cory Betancourt MD Technologist: Cameron Brannon Time: DA P (Gy m2): Air Kerma (mGy): Trscr Dt/Tm: 09/24/2018 (0705) by:Tony [email or web address] Printed Date/Time: 09/24/2018 (0944) Name: HOLLEY REDMOND [facility] Phys: Cory Guaman [address] : 1990 Age: 28 Sex: F [place] [address] Acct No: [id number] Loc: P.ERS Exam Date: 09/24 Status: REG ER PH: FAX: PAGE 1 Signed Report HAND 3+ VIEWS RIGHT 2018-09-13 05:41:00 [place] [address] Patient Name: HOLLEY GAYLE MR #: [id number] : 1990 Age/Sex: 28/F Req #: [id number] Adm Physician: Ordered by: RANJIT HINOJOSA MD Report #: [id number] Location: ER Room/Bed: Procedure: [id number] DX/HAND 3+ VIEWS RIGHT Exam Date: 09/13/18 Exam Dennis e: 0515 REPORT STATUS: Signed RI GHT SHOULDER - 2 Images RIGHT ELBOW - 3 Images RIGHT FOREARM - 2 Christina ges RIGHT WRIST - 3 Images RIGHT HAND - 3 Images HISTORY: Pain, injury, 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 FINDINGS: Bones: No acute displaced fracture. Status post resection of the distal ulna. Status post fusion of the distal radius, ca rpus, and base of the third metacarpal bone. Dorsal plate and screw construct. Additional pin fixates the scaphoid and capitate. Additional metallic densi ties within the distal radius. Joints: The distal radius and proximal car pal row. Soft tissues: Metallic surgical clips within the volar forearm s oft tissues. IMPRESSION: 1. No acute radiographic abnormality. 2. Status post dorsal wrist fusion, no evidence of hardware failure. Signed b y: Dr. Viral Hall D.O., M.M.M. 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 FINDINGS: Bones: No acute displaced fracture. Status post resection of the distal ulna. Status post fusion of the distal radius, c arpus, and base of the third metacarpal bone. Dorsal plate and screw construct . Additional pin fixates the scaphoid and capitate. Additional metallic dens ities within the distal radius. Joints: The distal radius and proximal ca rpal row. Soft tissues: Metallic surgical clips within the volar forearm soft tissues. IMPRESSION: 1. No acute radiographic abnormality. 2. Status post dorsal wrist fusion, no evidence of hardware failure. Signed by: Dr. Viral Hall D.O., M.M.M. on 09/13/2018 5:49 AM Dictated By: VIRAL HALL DO 0549 Transcribe d By: QUENTIN on 09/13/18 0549 COPY TO: RANJIT HINOJOSA MD FOREARM RIGHT 2 [id number] 05:41:00 [place] [address] Patient Name: HOLLEY GAYLE MR #: [id number] : 1990 Age/Sex: 28/F Req #: [id number] Adm Physician: Ordered by: RANJIT HINOJOSA MD Report #: [id number] Location: ER Room/Bed: Procedure: [id number] DX/FOREARM RIGHT 2 VIEW Exam Date: 09/13/18 Exam Ti me: 0515 REPORT STATUS: Signed R IGHT SHOULDER - 2 Images RIGHT ELBOW - 3 Images RIGHT FOREARM - 2 Im ages RIGHT WRIST - 3 Images RIGHT HAND - 3 Images HISTORY: Pain, injury, 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 FINDINGS: Bones: No acute displaced fracture. Status post resection of the distal ulna. Status post fusion of the distal radius, c arpus, and base of the third metacarpal bone. Dorsal plate and screw construct . Additional pin fixates the scaphoid and capitate. Additional metallic dens ities within the distal radius. Joints: The distal radius and proximal ca rpal row. Soft tissues: Metallic surgical clips within the volar forearm soft tissues. IMPRESSION: 1. No acute radiographic abnormality. 2. Status post dorsal wrist fusion, no evidence of hardware failure. Signed by: Dr. Viral Hall D.O., M.M.M. on 09/13/2018 5:49 AM Dictated By: VIRAL HALL DO 0549 Transcribe d By: QUENTIN on 09/13/18 0549 COPY TO: RANJIT HINOJOSA MD ELBOW RIGHT [id number] 05:41:00 [place] [address] Patient Name: HOLLEY GAYLE MR #: [id number] : 1990 Age/Sex: 28/F Req #: [id number] Adm Physician: Ordered by: RANJIT HINOJOSA MD Report #: [id number] Location: ER Room/Bed: Procedure: [id number] DX/ELBOW RIGHT COMPLETE Exam Date: 09/13/18 Exam Ti me: 0515 REPORT STATUS: Signed R IGHT SHOULDER - 2 Images RIGHT ELBOW - 3 Images RIGHT FOREARM - 2 Im ages RIGHT WRIST - 3 Images RIGHT HAND - 3 Images HISTORY: Pain, injury, 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 FINDINGS: Bones: No acute displaced fracture. Status post resection of the distal ulna. Status post fusion of the distal radius, c arpus, and base of the third metacarpal bone. Dorsal plate and screw construct . Additional pin fixates the scaphoid and capitate. Additional metallic dens ities within the distal radius. Joints: The distal radius and proximal ca rpal row. Soft tissues: Metallic surgical clips within the volar forearm soft tissues. IMPRESSION: 1. No acute radiographic abnormality. 2. Status post dorsal wrist fusion, no evidence of hardware failure. Signed by: Inocencia BlasOSmith, M.M.M. on 09/13/2018 5:49 AM Dictated By: VIRAL HALL DO 0549 Transcribe d By: QUENTIN on 09/13/18 0549 COPY TO: RANJIT HINOJOSA MD SHOULDER RIGHT [id number] 05:41:00 [place] [address] Patient Name: HOLLEY GAYLE MR #: [id number] : 1990 Age/Sex: 28/F Req #: [id number] Adm Physician: Ordered by: RANJIT HINOJOSA MD Report #: [id number] Location: ER Room/Bed: Procedure: [id number] DX/SHOULDER RIGHT COMPLETE Exam Date: 09/13/18 Exam Time: 0515 REPORT STATUS: Signed RIGHT SHOULDER - 2 Images RIGHT ELBOW - 3 Images RIGHT FOREARM - 2 Images RIGHT WRIST - 3 Images RIGHT HAND - 3 Images HISTOR Y: Pain, injury, 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 FINDINGS: Bones: No acute displaced fracture. Sta tus post resection of the distal ulna. Status post fusion of the distal radius , carpus, and base of the third metacarpal bone. Dorsal plate and screw constr uct. Additional pin fixates the scaphoid and capitate. Additional metallic d ensities within the distal radius. Joints: The distal radius and proximal carpal row. Soft tissues: Metallic surgical clips within the volar forea rm soft tissues. IMPRESSION: 1. No acute radiographic abnormality. 2. Status post dorsal wrist fusion, no evidence of hardware failure. Sign ed by: Inocencia BlasOSmith, M.M.M. on 09/13/2018 5:49 AM Dictated By: HEIDE HALL DO 0549 Transcr ibed By: QUENTIN on 09/13/18 0549 COPY TO: RANJIT HINOJOSA MD - XR FOREARM 2 VIEWS [id number] 23:33:00 FAX: [place] DO [phone] [place]: St: PRE Name: HOLLEY GREGG [facility] : [birth year] Age/S: 28/F [address] [place] [address] Unit #: [id number] Loc: [place] [address] Phys: [place] Lai DO Acct: [id number] Dis Date: Status: PRE ER PHONE #: [phone] Exam Date: 09/12/20182318 FAX #: [phone] Reason: rt arm pain EXAMS: CPT CODE: [id number] [place]R [place] [address] [place] [address] Right forearm 2 view HISTORY: Arm pain. Comparison made to right wrist series of the s bright date, and previous forearm series dated 08/27/18. FINDIN GS: Fusion hardware again seen spanning the right distal radius, c arpal bones, and 3rd metacarpal. No hardware failure/loosening. No abnormality of the proximal right radius or ulna. IMPRESSION: 1. Postoperative/posttraumatic changes at the distal right for earm and wrist, stable. 2. No acute change from 08/27/18. SL:01 at 7323 Reported and signed by: Henrique Crawley M.D. CC: [place] Lai DO Technologist: RT Jacoby(R) Trnscrd Date/Time/By: 9 (3075) : By: Iesha Orig Print D/T: S: 09/12/2018 (2732) PAGE 1 Signed Report - XR HAND 3 + V [id number] 23:20:00 FAX: [place] DO [phone] [place]: St: PRE Name: HOLLEY GREGG [facility] : [birth year] Age/S: 28/F [address] [place] [address] Unit #: [id number] Loc: [place] [address] Phys: [place] Lai DO Acct: [id number] Dis Date: Status: PRE ER PHONE #: [phone] Exam Date: 09/12/20182316 FAX #: [phone] Reason: RT ARM PAIN EXAMS: CPT CODE: [id number] XR HAND 3 + [place] [address] Right hand 3 view HI STORY: Right arm pain. Comparison made to 08/27/18. FINDINGS: There are old postoperative changes of carpal fusion wit h a fixating plate and screws and fixating pin having a stable appearance. There is likely an old healed fracture of the distal right radius, the radius is currently fused to carpal bones. No acute fracture or disl ocation demonstrated. IMPRESSION: 1. Extensive postsurg ical and posttraumatic changes involving right distal radius, ulnar, and carpal bones with radiocarpal and carpal fusion. 2. No acute f racture, no acute interval change from 08/27/18. SL:01 at 6352 Reported and signed by: Henrique Crawley M.D. CC: [place] Lai DO Technologist: RT Sean(R) Trnscrd Date/Time/By: 09/12/2018 (0875) : By: Iesha Orig Print D/T: S: 09/12/2018 (7468) PAGE 1 Signed Report - XR HAND 3 + V [id number] 08:01:00 FAX: Thierno Gar NP [phone] [place]: St: REG Name: HOLLEY GREGG [facility] : [birth year] Age/S: 28/F [address] [facility] Unit #: [id number] Loc: [place] [address] Phys: Thierno Gar NP Acct: [id number] Dis Date: Status: REG ER PHONE #: [phone] Exam Date: 08/27/2018 0737 FAX #: [phone] Reason: ARM PAIN EXAMS: CPT CODE: [id number] XR HAND 3 + V [place] [address] EXAM: Right forearm, 2 views and r ight hand, 3 views; INFORMATION: Pain; FINDINGS: Status post ORIF for treatment of a fracture of the distal right radius . There has been central stenosis of the radiocarpal joint and a plate ex tends along the dorsal aspect of the distal radius as well as carpal bones and further into the base of the 3rd metacarpal bone. Plate is fixated w ith multiple screws. An additional pin is seen across carpal bones and th ere is also synostosis of major portion of the carpal bones. There i s thickening and increased sclerosis of the distal right radius. The dist al end of the ulna is moderately from the radius probably second selina to ligamentous disruption. Imaged bones are otherwise intact; no evide nce of acute fracture. Two small surgical clips are seen within subcutaneo us tissues in the distal 3rd of the right forearm. IMPRESS ION: 1. 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 2. Thickening of the distal radius and sclerosis is p robably related to postoperative changes. Chronic osteomyelitis is less likely. 3. No evidence of acute osseous trauma. E lectronically Signed by Les Knapp on 07/31 at 0801 Reported and signed by: Drew Knapp M.D. 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 There has been central stenosis of the radiocarpal joint and a plate ex tends along the dorsal aspect of the distal radius as well as carpal bones and further into the base of the 3rd metacarpal bone. Plate is fixated w ith multiple screws. An additional pin is seen across carpal bones and th ere is also synostosis of major portion of the carpal bones. There i s thickening and increased sclerosis of the distal right radius. The dist al end of the ulna is moderately from the radius probably second selina to ligamentous disruption. Imaged bones are otherwise intact; no evide nce of acute fracture. Two small surgical clips are seen within subcutaneo us tissues in the distal 3rd of the right forearm. IMPRESS ION: 1. 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 2. Thickening of the distal radius and sclerosis is p robably related to postoperative changes. Chronic osteomyelitis is less likely. 3. No evidence of acute osseous trauma. E lectronically Signed by Les Knapp on 07/31 at 0801 Reported and signed by: Drew Knapp M.D. CC: Thierno Gar NP Technologist: Raulito Cifuentes RT(R) Tr nscrd Date/Time/By: 08/27/2018 (08) : By: MojganGRW Orig Print D/T: S: 08/27/2018 (0804) PAGE 1 Gloria d Report - XR HUMERUS 2 + V [id number] 07:55:00 FAX: Thierno Gar NP [phone] [place]: St: REG Name: HOLLEY GREGG [facility] : [birth year] Age/S: 28/F [address] [facility] Unit #: [id number] Loc: [place] [address] Phys: Thierno Gar NP Acct: [id number] Dis Date: Status: REG ER PHONE #: [phone] Exam Date: 08/27/2018 0737 FAX #: [phone] Reason: ARM PAIN EXAMS: CPT CODE: [id number] XR HUMERUS 2 + V [place] [address] EXAM: Right humerus, 2 views; INFORMATION: Arm pain; FINDINGS: Normal shape and structure of the imaged bones; no evidence of fracture or dislocation; no soft tissue abnormalities. IMPRESSION: No evidenc e of acute osseous trauma or other pathological changes. No radiopaque f oreign body. at 0755 Reported and signed by: Huang Knapp M.D. CC: Thierno Gar NP Technologist: Raulito PEREZ(R) Trnscrd Date/Time/By: (0755) : By: Aron Orig Print D/T: S: 08/27/2018 (0758) PAGE 1 Signed Report RAD, HAND, 3 VIEWS, [id number] 09:52:00Reason for exam:-> ARM PAINReason for exam:->EMESISFINAL REPORT CLINICAL HISTORY: ARM PAINEMESIS TECHNIQUE: 3 [...] an acute fracture or dislocation. Signed: Norma Anders MDReport Verified Date/Time: 08/25/2018 09:52:23 Reading Location: [facility] Radiology Reading Room C METABOLIC [id number] 09:38:00* Test Item Value Reference Range Comments SODIUM (BEAKER) (test zshe=105) 140 meq/L 136-145 POTASSIUM (BEAKER) (test gvmg=877) 3.6 meq/L 3.5-5.1 CHLORIDE (BEAKER) (test zrlg=210) 104 meq/L 98-107 CO2 (BEAKER) (test chlf=561) 26 meq/L 22-29 BLOOD UREA NITROGEN (BEAKER) (test gnol=984) 12 mg/dL 7-21 CREATININE (BEAKER) (test uwix=336) 0.79 mg/dL 0.57-1.25 GLUCOSE RANDOM (BEAKER) (test xzlu=383) 110 mg/dL 70-105 CALCIUM (BEAKER) (test gapp=833) 10.3 mg/dL 8.4-10.2 EGFR (BEAKER) (test afyi=3191) 85 mL/min/1.73 sq m ESTIMATED GFR IS NOT ACCURATE CREATININE CLEARANCE IN PREDICTING GLOMERULAR FILTRATION RATE. ESTIMATED GFR IS NOT APPLICABLE FOR DIALYSIS PATIENTS. C-REACTIVE [id number] 09:38:00* Test Item Value Reference Range Comments C-REACTIVE PROTEIN (BEAKER) (test kryq=284) 0.11 mg/dL 0.00-0.50 CBC W/PLT COUNT & AUTO [id number] 09:26:00* Test Item Value Reference Range Comments WHITE BLOOD CELL COUNT (BEAKER) (test najc=814) 13.8 K/ L 3.5-10.5 RED BLOOD CELL COUNT (BEAKER) (test mvuz=435) 4.52 M/ L 3.93-5.22 HEMOGLOBIN (BEAKER) (test xtdk=749) 11.8 GM/DL 11.2-15.7 HEMATOCRIT (BEAKER) (test tfwu=517) 38.4 % 34.1-44.9 MEAN CORPUSCULAR VOLUME (BEAKER) (test lwhc=734) 85.0 fL 79.4-94.8 MEAN CORPUSCULAR HEMOGLOBIN (BEAKER) (test wfiu=278) 26.1 pg 25.6-32.2 MEAN CORPUSCULAR HEMOGLOBIN CONC (BEAKER) (test rnmg=871) 30.7 GM/DL 32.2-35.5 RED CELL DISTRIBUTION WIDTH (BEAKER) (test qrhd=678) 19.2 % 11.7-14.4 PLATELET COUNT (BEAKER) (test wrai=959) 460 K/CU MM 150-450 MEAN PLATELET VOLUME (BEAKER) (test qowp=836) 10.0 fL 9.4-12.3 NUCLEATED RED BLOOD CELLS (BEAKER) (test rman=657) 0 /100 WBC 0-0 NEUTROPHILS RELATIVE PERCENT (BEAKER) (test trew=044) 81 % LYMPHOCYTES RELATIVE PERCENT (BEAKER) (test gcba=364) 14 % MONOCYTES RELATIVE PERCENT (BEAKER) (test otdh=797) 3 % EOSINOPHILS RELATIVE PERCENT (BEAKER) (test qvfh=644) 1 % BASOPHILS RELATIVE PERCENT (BEAKER) (test smuh=630) 0 % NEUTROPHILS ABSOLUTE COUNT (BEAKER) (test lvbh=290) 11.17 K/ L 1.56-6.13 LYMPHOCYTES ABSOLUTE COUNT (BEAKER) (test ozmh=126) 1.94 K/ L 1.18-3.74 MONOCYTES ABSOLUTE COUNT (BEAKER) (test npqq=763) 0.42 K/ L 0.24-0.36 EOSINOPHILS ABSOLUTE COUNT (BEAKER) (test pfbp=279) 0.15 K/ L 0.04-0.36 BASOPHILS ABSOLUTE COUNT (BEAKER) (test qqdi=947) 0.05 K/ L 0.01-0.08 IMMATURE GRANULOCYTES-RELATIVE PERCENT (BEAKER) (test ebpd=1515) 0 % 0-1 BASIC METABOLIC [id number] 10:47:00* Test Item Value Reference Range Comments [...] (test code=CA) 9.5 mg/dL 8.5-10.1 HEPATIC FUNCTION [id number] 10:47:00* Test Item Value Reference Range Comments [...] reference range due to change in reagent. [id number] 10:47:00* Test Item Value Reference Range Comments LIPASE (test code=LIP) 139 U/L 73.0-393.0 HCG SERUM [id number] 10:47:00* Test Item Value Reference Range Comments HCG SERUM QUAL (test code=HCGQL) NEGATIVE NEGATIVE This HCGQL test is NOT applicable for MALE patients.Check with nurse about probable order error.If Tumor Marker Test needed, nurse should order test "HCGTU"(Test #550.58024) BASIC METABOLIC [id number] 10:37:00* Test Item Value Reference Range Comments [...] CALCIUM (test code=CA) mg/dL 8.5-10.1 HEPATIC FUNCTION [id number] 10:37:00* Test Item Value Reference Range Comments TOTAL PROTEIN (test code=PROT) gram/dL 6.4-8.2 ALBUMIN (test code=ALB) g/dL 3.4-5.0 GLOBULIN (test code=GLOB) gram/dL 2.7-4.2 ALBUMIN/GLOBULIN RATIO (test code=A/G) 0.75-1.50 BILIRUBIN TOTAL (test code=BILT) mg/dL 0.0-1.0 BILIRUBIN DIRECT (test code=BILD) mg/dL 0.0-0.20 SGOT/AST (test code=AST) IUnit/L 15-37 SGPT/ALT (test code=ALT) IUnit/L 12-78 ALKALINE PHOSPHATASE TOTAL (test code=ALKP) IUnit/L 45-117 [id number] 10:37:00* Test Item Value Reference Range Comments LIPASE (test code=LIP) U/L 73.0-393.0 HCG SERUM [id number] 10:37:00* Test Item Value Reference Range Comments HCG SERUM QUAL (test code=HCGQL) NEGATIVE NEGATIVE This HCGQL test is NOT applicable for MALE patients.Check with nurse about probable order error.If Tumor Marker Test needed, nurse should order test "HCGTU"(Test #550.25763) BASIC METABOLIC [id number] 10:36:00* Test Item Value Reference Range Comments [...] CALCIUM (test code=CA) mg/dL 8.5-10.1 HEPATIC FUNCTION [id number] 10:36:00* Test Item Value Reference Range Comments TOTAL PROTEIN (test code=PROT) gram/dL 6.4-8.2 ALBUMIN (test code=ALB) g/dL 3.4-5.0 GLOBULIN (test code=GLOB) gram/dL 2.7-4.2 ALBUMIN/GLOBULIN RATIO (test code=A/G) 0.75-1.50 BILIRUBIN TOTAL (test code=BILT) mg/dL 0.0-1.0 BILIRUBIN DIRECT (test code=BILD) mg/dL 0.0-0.20 SGOT/AST (test code=AST) IUnit/L 15-37 SGPT/ALT (test code=ALT) IUnit/L 12-78 ALKALINE PHOSPHATASE TOTAL (test code=ALKP) IUnit/L 45-117 [id number] 10:36:00* Test Item Value Reference Range Comments LIPASE (test code=LIP) U/L 73.0-393.0 HCG SERUM [id number] 10:36:00* Test Item Value Reference Range Comments HCG SERUM QUAL (test code=HCGQL) NEGATIVE NEGATIVE This HCGQL test is NOT applicable for MALE patients.Check with nurse about probable order error.If Tumor Marker Test needed, nurse should order test "HCGTU"(Test #550.99660) CBC W/O [id number] 10:29:00* Test Item Value Reference Range Comments [...] VOLUME (test code=MPV) 10.3 fL 6.7-11.0 URINALYSIS [id number] 09:08:00* Test Item Value Reference Range Comments [...] MODERATE #/LPF FEW Urine Source? Clean CatchURINALYSIS [id number] 09:00:00* Test Item Value Reference Range Comments [...] Source? Clean Catch- XR ABDOMEN AP 1 [id number] 07:58:00 FAX: Cheli Kirk NP [place]: St: REG Name: HOLLEY GREGG [facility] : [birth year] Age/S: 28/F [address] [facility] Unit #: [id number] Loc: [place] [address] Phys: Cheli Kirk NP Acct: [id number] Dis Date: Status: REG ER PHONE #: [phone] Exam Date: 07/23/2018 0730 FAX #: [phone] Reason: Abdominal Pain EXAMS: CPT CODE: [id number] XR ABDOMEN AP 1 V 33200 REASON FOR EXAM: Abdominal Pain EXAM ORDER DATE: 07/23/2018 7:22 AM Attending Les: Nati Kirk NP PROCEDURE: - XR ABDOMEN [...] IMPRESSION: Unremarkable abdomen. at 0758 Reported and gloria d by: Ag Holland M.D. CC: Cheli Kirk NP Technologist: CAMILA MAZARIEGOS Trnscrd Date/Time/By: 07/23/2018 (0758) : By: [email or web address] Or ig Print D/T: S: 07/23/2018 (0802) PAGE 1 Signed Report [id number] 03:42:00* Test Item Value Reference Range Comments GLYCOSYLATED HEMOGLOBIN (HA1C) (test code=GLYHGB) 5.3 % HbA1 4.8-6.0 ESTIMATED AVERAGE GLUCOSE (test code=EAG) 105 MG/DL NOTIFIED EB [facility] 07/18/18 0228BASIMisty METABOLIC [id number] 03:36:00* Test Item Value Reference Range Comments [...] 10-20 CALCIUM (test code=CA) 8.6 mg/dL 8.5-10.1 KEVIN [facility]IED [facility] 07/18/18 0228CBC W/O [id number] 03:22:00* Test Item Value Reference Range Comments [...] PLATELET VOLUME (test code=MPV) 10.3 fL 6.7-11.0 HARDSTICK NOTIFIED EB LYN[facility].KP2 07/18/188- CT ABD PELVIS W/O [id number] 18:33:00 Name: HOLLEY GAYLE [facility] : 1990 Age/S: 28 / F [address] [facility] Unit #: [id number] Loc: [place] [address] Phys: Nuno Amador MD Acct: [id number] Dis Date: Status: ADM IN PHONE #: [phone] Exam Date: 07/17/2018 1500 FAX #: [phone] Reason: abd pain wbc 22 EXAMS: CPT CODE: [id number] CT ABD PELVIS W/O CONT 82918 REASON FOR EXAM: abd pain wbc 22 [...] and pelvis. Prior cholecystectomy. No evidence of hyd ronephrosis or nephrolithiasis. PAGE 1 Signed Repo rt (CONTINUED) Name: HOLLEY GAYLE [facility] : 1990 Age/S: 28 / F [address] Unit #: [id number] Loc: [place], [place] [address] Phys: Nuno Amador MD Acct: [id number] Dis Date: Status: ADM IN PHONE #: [phone] Exam Date: 07/17/2018 1500 FAX #: [phone] Reason: abd pain wbc 22 EXAMS: CPT CODE: [id number] CT ABD PELVIS W/O CONT 52554 <Continued> at 1833 Reported and signed by: Daryl Acevedo M.D. CC: Raheel Medina MD; Nuno Amador MD Technologist:KIM HEREDIA CTDI: DLP: Trnscb Date/Time: 07/17/2018 (1832) t.SDR.PB10 Orig Print D/T: S: 07/17/2018 (1835) PAGE 2 Signed Report - XR CHEST 1 [id number] 16:47:00 FAX: Nuno Amador MD [phone] [place]: B St: ADM Name: HOLLEY GREGG [facility] : [birth year] Age/S: 28/F [address] Unit #: [id number] Loc: [place] [address] Phys: Nuno Amador MD Acct: [id number] Dis Date: Status: ADM IN PHONE #: [phone] Exam Date: 07/17/2018 1625 FAX #: [phone] Reason: cough EXAMS: CPT CODE: [id number] XR CHEST 1 V 70368 REASON FOR EXAM: cough Exam Order Date: [...] IMPRESSION: No acute cardiopulm onary process. at 6510 Reported and signed by: Daryl Acevedo M.D. CC: Nuno Henriquez MD Technologist: MADDY PEREZ(R) Trnscrd Date/Time/By: 07/17/2018 (16 47) : By: MojganPB10 Orig Print D/T: S: 07/17/2018 (2059) PAGE 1 Signed Report URINALYSIS [id number] 14:26:00* Test Item Value Reference Range Comments [...] LPF NONE Urine Source? Clean CatchBASIC METABOLIC [id number] 14:23:00* Test Item Value Reference Range Comments [...] (test code=CA) 9.6 mg/dL 8.5-10.1 HEPATIC FUNCTION [id number] 14:23:00* Test Item Value Reference Range Comments [...] reference range due to change in reagent. [id number] 14:23:00* Test Item Value Reference Range Comments LIPASE (test code=LIP) 62 U/L 73.0-393.0 HCG SERUM [id number] 14:23:00* Test Item Value Reference Range Comments HCG SERUM QUAL (test code=HCGQL) NEGATIVE NEGATIVE This HCGQL test is NOT applicable for MALE patients.Check with nurse about probable order error.If Tumor Marker Test needed, nurse should order test "HCGTU"(Test #550.87586) [id number] 14:23:00* Test Item Value Reference Range Comments TROPONIN-I (test code=TROPI) <0.015 ng/mL 0-0.045 URINALYSIS [id number] 14:15:00* Test Item Value Reference Range Comments [...] HPF NONE Urine Source? Clean CatchBASIC METABOLIC [id number] 14:12:00* Test Item Value Reference Range Comments [...] CALCIUM (test code=CA) mg/dL 8.5-10.1 HEPATIC FUNCTION [id number] 14:12:00* Test Item Value Reference Range Comments TOTAL PROTEIN (test code=PROT) gram/dL 6.4-8.2 ALBUMIN (test code=ALB) g/dL 3.4-5.0 GLOBULIN (test code=GLOB) gram/dL 2.7-4.2 ALBUMIN/GLOBULIN RATIO (test code=A/G) 0.75-1.50 BILIRUBIN TOTAL (test code=BILT) mg/dL 0.0-1.0 BILIRUBIN DIRECT (test code=BILD) mg/dL 0.0-0.20 SGOT/AST (test code=AST) IUnit/L 15-37 SGPT/ALT (test code=ALT) IUnit/L 12-78 ALKALINE PHOSPHATASE TOTAL (test code=ALKP) IUnit/L 45-117 [id number] 14:12:00* Test Item Value Reference Range Comments LIPASE (test code=LIP) U/L 73.0-393.0 HCG SERUM [id number] 14:12:00* Test Item Value Reference Range Comments HCG SERUM QUAL (test code=HCGQL) NEGATIVE NEGATIVE This HCGQL test is NOT applicable for MALE patients.Check with nurse about probable order error.If Tumor Marker Test needed, nurse should order test "HCGTU"(Test #550.97277) [id number] 14:12:00* Test Item Value Reference Range Comments TROPONIN-I (test code=TROPI) ng/mL 0-0.045 CBC W/O [id number] 13:59:00* Test Item Value Reference Range Comments [...] 10.4 fL 6.7-11.0 - CT HEAD/BRAIN W/O [id number] 13:47:00 Name: HOLLEY GAYLE [facility] : 1990 Age/S: 28 / F [address] Unit #: [id number] Loc: [place] [address] Phys: Nuno Amador MD Acct: [id number] Dis Date: Status: REG ER PHONE #: [phone] Exam Date: 07/17/2018 1250 FAX #: [phone] Reason: seizure EXAMS: CPT CODE: [id number] CT HEAD/BRAIN W/O CONT 59821 HISTORY: seizure TECHNIQUE: Noncontrast 2.[address] of the head. Examination acquired within 24 hours of arrival. Automated exposure control for dose reduction. COMPARISON: Noncontrast CT brain February 20, 2018 FINDINGS: No acute hemorrhage. No intracranial mass, mass effect, or midline shift. No CT evidence of acute infarct. Ham-white matter differentiation is preserved. No hydrocephalus. No extra-axial fluid collection. Near complete opacification of the right maxillary sinus appears similar to the prior exam and may reflect chronic sinusitis. Remainder of the paranasal sinuses are clear.. Mastoid air cells and midd le ear cavities are clear. Orbital contents are unremarkable. Calvarium an d skull base are intact. IMPRESSION: No acute intracranial process. Chronic opacification of the right m axillary sinus is unchanged from the previous exam. * * at 1347 Reported and signed by: Kamron Ariza MD CC: Nuno Amador MD Technologist:KIM HEREDIA; ... CTDI: DLP: Trnscb Date/Time: 07/17/2018 (6466) [id number] Orig Print D/T: S: 07/17/2018 (4830) PAGE 1 Signed Report BASIC METABOLIC PANEL 2018-06-26 09:10:00* Test Item Value Reference Range Comments [...] (test code=CA) 9.4 mg/dL 8.5-10.1 HEPATIC FUNCTION [id number] 09:10:00* Test Item Value Reference Range Comments [...] reference range due to change in reagent. [id number] 09:10:00* Test Item Value Reference Range Comments LIPASE (test code=LIP) 220 U/L 73.0-393.0 HCG SERUM [id number] 09:10:00* Test Item Value Reference Range Comments HCG SERUM QUAL (test code=HCGQL) NEGATIVE NEGATIVE This HCGQL test is NOT applicable for MALE patients.Check with nurse about probable order error.If Tumor Marker Test needed, nurse should order test "HCGTU"(Test #550.27311) BASIC METABOLIC [id number] 09:05:00* Test Item Value Reference Range Comments [...] CALCIUM (test code=CA) mg/dL 8.5-10.1 HEPATIC FUNCTION [id number] 09:05:00* Test Item Value Reference Range Comments TOTAL PROTEIN (test code=PROT) gram/dL 6.4-8.2 ALBUMIN (test code=ALB) g/dL 3.4-5.0 GLOBULIN (test code=GLOB) gram/dL 2.7-4.2 ALBUMIN/GLOBULIN RATIO (test code=A/G) 0.75-1.50 BILIRUBIN TOTAL (test code=BILT) mg/dL 0.0-1.0 BILIRUBIN DIRECT (test code=BILD) mg/dL 0.0-0.20 SGOT/AST (test code=AST) IUnit/L 15-37 SGPT/ALT (test code=ALT) IUnit/L 12-78 ALKALINE PHOSPHATASE TOTAL (test code=ALKP) IUnit/L 45-117 [id number] 09:05:00* Test Item Value Reference Range Comments LIPASE (test code=LIP) U/L 73.0-393.0 HCG SERUM [id number] 09:05:00* Test Item Value Reference Range Comments HCG SERUM QUAL (test code=HCGQL) NEGATIVE NEGATIVE This HCGQL test is NOT applicable for MALE patients.Check with nurse about probable order error.If Tumor Marker Test needed, nurse should order test "HCGTU"(Test #550.55416) BASIC METABOLIC [id number] 09:00:00* Test Item Value Reference Range Comments [...] CALCIUM (test code=CA) mg/dL 8.5-10.1 HEPATIC FUNCTION [id number] 09:00:00* Test Item Value Reference Range Comments TOTAL PROTEIN (test code=PROT) gram/dL 6.4-8.2 ALBUMIN (test code=ALB) g/dL 3.4-5.0 GLOBULIN (test code=GLOB) gram/dL 2.7-4.2 ALBUMIN/GLOBULIN RATIO (test code=A/G) 0.75-1.50 BILIRUBIN TOTAL (test code=BILT) mg/dL 0.0-1.0 BILIRUBIN DIRECT (test code=BILD) mg/dL 0.0-0.20 SGOT/AST (test code=AST) IUnit/L 15-37 SGPT/ALT (test code=ALT) IUnit/L 12-78 ALKALINE PHOSPHATASE TOTAL (test code=ALKP) IUnit/L 45-117 [id number] 09:00:00* Test Item Value Reference Range Comments LIPASE (test code=LIP) U/L 73.0-393.0 HCG SERUM [id number] 09:00:00* Test Item Value Reference Range Comments HCG SERUM QUAL (test code=HCGQL) NEGATIVE URINALYSIS [id number] 08:42:00* Test Item Value Reference Range Comments UA COLOR (test code=COLU) YELLOW YELLOW UA APPEARANCE (test code=APPU) Cloudy CLEAR UA GLUCOSE DIPSTICK (test code=DGLUU) NEGATIVE mg/dL NEGATIVE UA BILIRUBIN DIPSTICK (test code=BILU) NEGATIVE mg/dL NEGATIVE UA KETONE DIPSTICK (test code=KETU) NEGATIVE mg/dL NEGATIVE UA SPECIFIC GRAVITY (test code=SGU) 1.024 1.001-1.035 UA BLOOD DIPSTICK (test code=ZABRINA) Negative [...] #/LPF FEW Urine Source? Clean CatchCBC W/O [id number] 08:29:00* Test Item Value Reference Range Comments [...] VOLUME (test code=MPV) 10.5 fL 6.7-11.0 URINALYSIS [id number] 09:55:00* Test Item Value Reference Range Comments [...] Urine Source? Clean CatchDRUGS OF ABUSE SCREEN [id number] 09:55:00* Test Item Value Reference Range Comments [...] <300 ng/mL Urine Source? Clean CatchBASIC METABOLIC [id number] 09:32:00* Test Item Value Reference Range Comments [...] (test code=CA) 8.9 mg/dL 8.5-10.1 HEPATIC FUNCTION [id number] 09:32:00* Test Item Value Reference Range Comments [...] reference range due to change in reagent. [id number] 09:32:00* Test Item Value Reference Range Comments LIPASE (test code=LIP) 99 U/L 73.0-393.0 HCG SERUM [id number] 09:32:00* Test Item Value Reference Range Comments HCG SERUM QUAL (test code=HCGQL) NEGATIVE NEGATIVE This HCGQL test is NOT applicable for MALE patients.Check with nurse about probable order error.If Tumor Marker Test needed, nurse should order test "HCGTU"(Test #550.85962) BASIC METABOLIC [id number] 09:22:00* Test Item Value Reference Range Comments [...] CALCIUM (test code=CA) mg/dL 8.5-10.1 HEPATIC FUNCTION [id number] 09:22:00* Test Item Value Reference Range Comments TOTAL PROTEIN (test code=PROT) gram/dL 6.4-8.2 ALBUMIN (test code=ALB) g/dL 3.4-5.0 GLOBULIN (test code=GLOB) gram/dL 2.7-4.2 ALBUMIN/GLOBULIN RATIO (test code=A/G) 0.75-1.50 BILIRUBIN TOTAL (test code=BILT) mg/dL 0.0-1.0 BILIRUBIN DIRECT (test code=BILD) mg/dL 0.0-0.20 SGOT/AST (test code=AST) IUnit/L 15-37 SGPT/ALT (test code=ALT) IUnit/L 12-78 ALKALINE PHOSPHATASE TOTAL (test code=ALKP) IUnit/L 45-117 [id number] 09:22:00* Test Item Value Reference Range Comments LIPASE (test code=LIP) U/L 73.0-393.0 HCG SERUM [id number] 09:22:00* Test Item Value Reference Range Comments HCG SERUM QUAL (test code=HCGQL) NEGATIVE NEGATIVE This HCGQL test is NOT applicable for MALE patients.Check with nurse about probable order error.If Tumor Marker Test needed, nurse should order test "HCGTU"(Test #550.56159) BASIC METABOLIC [id number] 09:21:00* Test Item Value Reference Range Comments [...] CALCIUM (test code=CA) mg/dL 8.5-10.1 HEPATIC FUNCTION [id number] 09:21:00* Test Item Value Reference Range Comments TOTAL PROTEIN (test code=PROT) gram/dL 6.4-8.2 ALBUMIN (test code=ALB) g/dL 3.4-5.0 GLOBULIN (test code=GLOB) gram/dL 2.7-4.2 ALBUMIN/GLOBULIN RATIO (test code=A/G) 0.75-1.50 BILIRUBIN TOTAL (test code=BILT) mg/dL 0.0-1.0 BILIRUBIN DIRECT (test code=BILD) mg/dL 0.0-0.20 SGOT/AST (test code=AST) IUnit/L 15-37 SGPT/ALT (test code=ALT) IUnit/L 12-78 ALKALINE PHOSPHATASE TOTAL (test code=ALKP) IUnit/L 45-117 [id number] 09:21:00* Test Item Value Reference Range Comments LIPASE (test code=LIP) U/L 73.0-393.0 HCG SERUM [id number] 09:21:00* Test Item Value Reference Range Comments HCG SERUM QUAL (test code=HCGQL) NEGATIVE NEGATIVE This HCGQL test is NOT applicable for MALE patients.Check with nurse about probable order error.If Tumor Marker Test needed, nurse should order test "HCGTU"(Test #550.74496) URINALYSIS [id number] 09:07:00* Test Item Value Reference Range Comments [...] Urine Source? Clean CatchDRUGS OF ABUSE SCREEN [id number] 09:07:00* Test Item Value Reference Range Comments URN COCAINE (test code=COCAURN) <300 ng/mL URN CANNABINOIDS (test code=CANNABURN) <50 ng/mL URN AMPHETAMINE (test code=AMPHETURN) <1000 ng/mL URN BARBITURATE (test code=BARBITURN) <200 ng/mL URN BENZODIAZEPINE (test code=BENZOURN) <200 ng/mL URN OPIATES (test code=OPIATURN) <300 ng/mL URN PHENCYCLIDINE (PCP) (test code=PHENCURN) <25 ng/mL URN METHADONE (test code=METHAURN) <300 ng/mL Urine Source? Clean CatchURINALYSIS [id number] 09:02:00* Test Item Value Reference Range Comments [...] Urine Source? Clean CatchDRUGS OF ABUSE SCREEN [id number] 09:02:00* Test Item Value Reference Range Comments URN COCAINE (test code=COCAURN) <300 ng/mL URN CANNABINOIDS (test code=CANNABURN) <50 ng/mL URN AMPHETAMINE (test code=AMPHETURN) <1000 ng/mL URN BARBITURATE (test code=BARBITURN) <200 ng/mL URN BENZODIAZEPINE (test code=BENZOURN) <200 ng/mL URN OPIATES (test code=OPIATURN) <300 ng/mL URN PHENCYCLIDINE (PCP) (test code=PHENCURN) <25 ng/mL URN METHADONE (test code=METHAURN) <300 ng/mL Urine Source? 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 COMPARISON: June 18, 2018. No bowel obstruction. Constipatio n. Patient is post cholecystectomy phlebolith in the right hemipelvis. Óscar arent donor site along the right iliac wing. IMPRESSION No bowel obstruction. Mild constipation. Patient is post cholecy stectomy. a t 828 Reported and signed by: Tho Rangel M.D. CC: Samia Tamez NP Technologist: Yovany Galvan RT(R) Trnscrd Da te/Time/By: 06/21/2018 (828) : By: [email or web address] Orig Print D/T: S: 06/21 (0827) PAGE 1 Signed Report - XR ABDOMEN AP 1 [id number] 21:05:00 FAX: Parag Eagle [place]: St: REG Name: HOLLEY GREGG [facility] : 06/02/18 87 Age/S: 28/F [address] [facility] Unit #: [id number] Loc: [place] [address] Phys: Parag Eagle Acct: [id number] Dis Date: Status: REG ER PHONE #: [phone] Exam Date: 06/18/20182034 FAX #: [phone] Reason: vomiting, pain EXAMS: CPT CODE: [id number] XR ABDOMEN AP 1 V 28356 HISTORY: Vomiting. C OMPARISON: April 08, 2018. No bowel obstruction. Mild constipat ion. Patient is post cholecystectomy. The upper abdomen is incompletely included slightly limiting evaluation. No pathologic calcifications. IMPRESSION: No bowel obstruction. Constipation. at 2105 Reported and signed by: Tho Rangel M.D. CC: Parag Eagle MD Technolog ist: MADDY SCHULTZ RT(R) Trnscrd Date/Time/By : 06/18/2018 (2104) : By: [email or web address] Orig Print D/T: S: 06/18/2018 () PAGE 1 Signed Report URINALYSIS [id number] 19:49:00* Test Item Value Reference Range Comments [...] FEW #/LPF FEW Urine Source? Clean CatchURINALYSIS [id number] 19:41:00* Test Item Value Reference Range Comments [...] HPF NONE Urine Source? Clean CatchBASIC METABOLIC [id number] 19:22:00* Test Item Value Reference Range Comments [...] (test code=CA) 8.5 mg/dL 8.5-10.1 HEPATIC FUNCTION [id number] 19:22:00* Test Item Value Reference Range Comments [...] reference range due to change in reagent. [id number] 19:22:00* Test Item Value Reference Range Comments LIPASE (test code=LIP) 103 U/L 73.0-393.0 HCG SERUM [id number] 19:22:00* Test Item Value Reference Range Comments HCG SERUM QUAL (test code=HCGQL) NEGATIVE NEGATIVE This HCGQL test is NOT applicable for MALE patients.Check with nurse about probable order error.If Tumor Marker Test needed, nurse should order test "HCGTU"(Test #550.70338) BASIC METABOLIC [id number] 19:14:00* Test Item Value Reference Range Comments [...] CALCIUM (test code=CA) mg/dL 8.5-10.1 HEPATIC FUNCTION [id number] 19:14:00* Test Item Value Reference Range Comments TOTAL PROTEIN (test code=PROT) gram/dL 6.4-8.2 ALBUMIN (test code=ALB) g/dL 3.4-5.0 GLOBULIN (test code=GLOB) gram/dL 2.7-4.2 ALBUMIN/GLOBULIN RATIO (test code=A/G) 0.75-1.50 BILIRUBIN TOTAL (test code=BILT) mg/dL 0.0-1.0 BILIRUBIN DIRECT (test code=BILD) mg/dL 0.0-0.20 SGOT/AST (test code=AST) IUnit/L 15-37 SGPT/ALT (test code=ALT) IUnit/L 12-78 ALKALINE PHOSPHATASE TOTAL (test code=ALKP) IUnit/L 45-117 [id number] 19:14:00* Test Item Value Reference Range Comments LIPASE (test code=LIP) U/L 73.0-393.0 HCG SERUM [id number] 19:14:00* Test Item Value Reference Range Comments HCG SERUM QUAL (test code=HCGQL) NEGATIVE NEGATIVE This HCGQL test is NOT applicable for MALE patients.Check with nurse about probable order error.If Tumor Marker Test needed, nurse should order test "HCGTU"(Test #550.27606) BASIC METABOLIC [id number] 19:08:00* Test Item Value Reference Range Comments [...] CALCIUM (test code=CA) mg/dL 8.5-10.1 HEPATIC FUNCTION [id number] 19:08:00* Test Item Value Reference Range Comments TOTAL PROTEIN (test code=PROT) gram/dL 6.4-8.2 ALBUMIN (test code=ALB) g/dL 3.4-5.0 GLOBULIN (test code=GLOB) gram/dL 2.7-4.2 ALBUMIN/GLOBULIN RATIO (test code=A/G) 0.75-1.50 BILIRUBIN TOTAL (test code=BILT) mg/dL 0.0-1.0 BILIRUBIN DIRECT (test code=BILD) mg/dL 0.0-0.20 SGOT/AST (test code=AST) IUnit/L 15-37 SGPT/ALT (test code=ALT) IUnit/L 12-78 ALKALINE PHOSPHATASE TOTAL (test code=ALKP) IUnit/L 45-117 [id number] 19:08:00* Test Item Value Reference Range Comments LIPASE (test code=LIP) U/L 73.0-393.0 HCG SERUM [id number] 19:08:00* Test Item Value Reference Range Comments HCG SERUM QUAL (test code=HCGQL) NEGATIVE CBC W/O [id number] 19:00:00* Test Item Value Reference Range Comments [...] (test code=MPV) 10.3 fL 6.7-11.0 COMPREHENSIVE METABOLIC [id number] 06:12:00* Test Item Value Reference Range Comments [...] code=ALKP) 107 units/L 46-116 - XR UGI [id number] 13:52:00 Patient Name: HOLLEY GAYLE Unit No: [id number] EXAMS: CPT CODE: [id number] XR UGI W/KUB 75105 CLINICAL HISTORY: Abdominal pain, nausea. COMPARISON: Computed tomography performed on May 22, 2018. Preliminary leave manager film of the abdomen demonstrates a nasogastric [...] gastric outlet obstruction or duodenal abnormality. at 1352 Reported and signed by: Daniel Crooks MD CC: Venus Asencio DO Technologist: RT Albert Trnscrbd D/ (2589) tRICHARD Orig Print D/T: S: 05/23/2018 (5845) The [facility] NAME: HOLLEY GAYLE Radiology Department PHYS: Deon Araya [address] : 1990 AGE: 27 SEX: F [place], [place] [address] LOC: F.2618 A PHONE #: [phone] EXAM DATE: 05/23/2018 STATUS: ADM IN FAX #: [phone] RAD NO: Page 1 Signed Report - CT ABD PELVIS [id number] 11:55:00 Patient Name: HOLLEY GAYLE Unit No: [id number] EXAMS: CPT CODE: [id number] CT ABD PELVIS W/CONT 12366 CT ABDOMEN WITH CONTRAST AND CT PELVIS [...] likely secondary to recent abdominal surgery. The [facility] NAME: HOLLEY GAYLE Radiology Department PHYS: Kareem Iniguez MD [address] : 1990 AGE: 27 SEX: F [place], [place] [address] ACCT NO: [id number] LOC: RADHA PHONE #: [phone] EXAM DATE: STATUS: REG ER FAX #: [phone] RAD NO: Page 1 Signed Report 1 Meagan ent Name: HOLLEY GAYLE Unit No: [id number] EXAMS: CPT CODE: [id number] CT ABD PELV IS W/CONT 89467 <Continued> IMPRESSION: Small amount of free pelvic fluid. Mild hepatic steatosis. Probable postoperative changes as noted above. at 1155 Reported and signed by: Douglas Mosher MD CC: Kareem Joyce MD; Venus Asencio DO Technologist: Kim Parker, RT CTDI: 15.54 DLP: 788.86 Trnsc rbd D/ (1155) [email or web address] [facility] NAME: HOLLEY GAYLE Radiology Departme nt PHYS: Kareem Iniguez MD [address] : 1990 AGE: 27 SEX: F [place] [address] LOC: Kemal.ERS PHONE #: [phone] EXAM DATE: 05/22/2018 STATUS: REG ER FAX #: [phone] RA D NO: Page 2 Signed Report 1 Patient Name: HOLLEY GAYLE Unit No: [id number] EXAMS: CPT CODE: [id number] ABD PELVIS W/CONT 68324 <Continued > Orig Print D/T: S: 05/22/2018 (6618) [facility] [place] NAME: HOLLEY GAYLE Radiology Department PHYS: Kareem Iniguez MD [address] : 1990 AGE: 27 SEX: F [place] [address] LOC: Kemal.ERS PHONE #: [phone] EXAM DATE: 05/22/2018 STATUS: REG ER FAX #: [phone] RAD NO: Page 3 Signed Report 1 ACUTE HEPATITIS PANEL 2018-05-22 11:26:00* Test Item Value Reference Range Comments AB HEPATITIS A IGM (test code=HAVMAB) NONREACTIVE NONREACTIVE AG HEPATITIS B SURFACE (test code=HBSAG) NONREACTIVE NONREACTIVE AB HEPATITIS B CORE IGM (test code=HBCMAB) NONREACTIVE NONREACTIVE AB HEPATITIS C (test code=HCVAB) NONREACTIVE NONREACTIVE SIGNAL TO CUTOFF (test code=CUTOFF) 0.05 <0.80 ACUTE HEPATITIS [id number] 11:21:00* Test Item Value Reference Range Comments AB HEPATITIS A IGM (test code=HAVMAB) NONREACTIVE AG HEPATITIS B SURFACE (test code=HBSAG) NONREACTIVE NONREACTIVE AB HEPATITIS B CORE IGM (test code=HBCMAB) NONREACTIVE NONREACTIVE AB HEPATITIS C (test code=HCVAB) NONREACTIVE NONREACTIVE SIGNAL TO CUTOFF (test code=CUTOFF) 0.05 <0.80 DRUGS OF ABUSE [id number] 11:10:00* Test Item Value Reference Range Comments UR COCAINE (test code=COCAU) NEGATIVE NEGATIVE DETECTION CUT OFF: 150 ng/mL UR CANNABINOIDS (test code=CANU) POSITIVE NEGATIVE RESULTS CALLED TO [employer] BACK & CONFIRMED? [employer] 05/22/18 1106. DETECTION CUT OFF: 50 ng/mL UR AMPHETAMINE (test code=AMPHU) NEGATIVE NEGATIVE DETECTION CUT OFF: 500 ng/mL UR BARBITURATE QUAL (test code=BARBQLU) NEGATIVE NEGATIVE DETECTION CUT OFF: 200 ng/mL UR BENZODIAZEPINE (test code=BENZU) POSITIVE NEGATIVE RESULTS CALLED TO [employer] BACK & CONFIRMED? [employer] 05/22/18 1106. DETECTION CUT OFF: 150 ng/mL UR OPIATES QUAL (test code=OPIAQLU) NEGATIVE NEGATIVE DETECTION CUT OFF: 100 ng/mL UR PHENCYCLIDINE (PCP) (test code=PHENCU) NEGATIVE NEGATIVE DETECTION CUT OFF: 25 ng/mL ACUTE HEPATITIS [id number] 10:58:00* Test Item Value Reference Range Comments AB HEPATITIS A IGM (test code=HAVMAB) NONREACTIVE AG HEPATITIS B SURFACE (test code=HBSAG) NONREACTIVE NONREACTIVE AB HEPATITIS B CORE IGM (test code=HBCMAB) NONREACTIVE AB HEPATITIS C (test code=HCVAB) NONREACTIVE SIGNAL TO CUTOFF (test code=CUTOFF) <0.80 UA RFLX MICR CULT IF [id number] 10:55:00* Test Item Value Reference Range Comments [...] UA MUCUS (test code=MUCU) RARE NONE SEEN [id number] 10:43:00* Test Item Value Reference Range Comments ALCOHOL (test code=ALC) <2.99 mg/dL < 3 THIS RESULT IS FOR MEDICAL PURPOSES ONLY The pharmacological response to blood alcohol levels mayvary from individual to individual. Signs of intoxicationcan be observed at levels of 50-100 mg/dL COMPREHENSIVE METABOLIC [id number] 10:36:00* Test Item Value Reference Range Comments [...] PHOSPHATASE TOTAL (test code=ALKP) 99 units/L 46-116 [id number] 10:36:00* Test Item Value Reference Range Comments AMYLASE (test code=JACQUELIN) 39 units/L 30-110 [id number] 10:36:00* Test Item Value Reference Range Comments LIPASE (test code=LIP) 84 units/L 73-393 CBC W/AUTO [id number] 10:16:00* Test Item Value Reference Range Comments [...] PLATELET MORPHOLOGY REQUIRED (test code=PLTMR) NORMAL NORMAL [id number] 09:43:00* Test Item Value Reference Range Comments GLUBED (test code=GLUBED) 93 mg/dL 65-110 APPENDIX,NOT [id number] 14:11:00 RUN DATE: 05/23/18 [facility] PAGE 1 RUN TIME: 1807 Specimen Inqui ry RUN USER: INTERFACE PATIENT: HOLLEY GAYLE ACCT #: [id number] LOC: [facility] U #: [id number] AGE/SX: 27/F ROOM: [facility] RE05/18/18[facility] DR: Deon Rodriguez : [birth year] BED: A DIS: 05/19/18 STATUS: DIS IN TLOC: SPEC #: [id number] RECD: 05/18/18 STATUS: JILL LUNDY #: [id number] YASHIRA: 05/18/18- SUBM DR: Deon Rodriguez MD ENTERED: 05/18/18 SP TYPE: APPIII OTHR DR: Ede Pat MD, Zohra F DOORDERED: LEVEL III SURGI CODES: [id number] - APPENDIX, NOS COPIES TO: Ede Lemons MD [address] [facility] [address] [place] [address] Deon Rodriguez MD [address] [facility] [address] [place] [address] [phone] [email or web address] Venus Asencio DO [address] [facility] [address] [place] [address] PROCEDURES: LEVEL III SURG I (Incomplete) TISSUES: APPENDIX, NOS - APPENDIX CLINICAL HIST ORY 27 year old, abdominal pain (wpd) FINAL DIAGNOSIS Appendix, a ppendectomy: - serosal congestion and a few adhesions Tissue code 1 CPT code(s): 99672 venkat/marie dt: 05/20/18 * * CONTINUED ON NEXT PAGE RUN DATE: 05/23/18 [facility] PAGE 2 RUN TIME: 1807 Specimen Inquiry RUN USER: INTERFACE SPEC #: [id number] PATIENT: HOLLEY GAYLE #[id number] (Continued)-------- ---- GROSS DESCRIPTION ANATOMIC SOURCE OF TISSUE (per Requisition): Appendix The specimen is received in a formalin-filled container, labeled with the patient's name and designated "appendix". The specimen consists of a 5.5 cm in length and 0.7 cm in diameter appendix with attached mesoappendice al adipose tissue. The serosa is pink-purple and hyperemic. The lumen is sli ghtly dilated. The mucosa is arzola-pink and focally hemorrhagic. There is no t ransmural defect. The appendix is submitted in its entirety in one cassette. jm/wpd 05/18/18 @ 1920 MICROSCOPIC DESCRIPTION No inflammation is ident ified. Serosal congestion and adhesions are noted. venkat/marie dt: 05/20/18------ ------ Signed Elpidio Abebe 1411 END OF REPORT UR HCG [id number] 09:50:00* Test Item Value Reference Range Comments UR HCG QUAL (test code=HCGQLU) NEGATIVE 1. Very dilute urine specimens, as indicated by a lowspecific gravity, may not contain automobile sales representative levels ofhCG. 2. False negative results may occur when the levels of hCGare below the sensitivity level of the test. If is still suspected, a first morningurine specimen should be collected 48 hours later andtested. COMPREHENSIVE METABOLIC [id number] 05:29:00* Test Item Value Reference Range Comments [...] PHOSPHATASE TOTAL (test code=ALKP) 128 units/L 46-116 [id number] 05:29:00* Test Item Value Reference Range Comments AMYLASE (test code=JACQUELIN) 35 units/L 30-110 [id number] 05:29:00* Test Item Value Reference Range Comments LIPASE (test code=LIP) 50 units/L 73-393 - XR CHEST 1 [id number] 21:33:00 Patient Name: HOLLEY GAYLE Unit No: [id number] EXAMS: CPT CODE: [id number] XR CHEST 1 V 78451 CHEST, ONE VIEW: HISTORY: Acute shortness of [...] MojganAJJ Orig Print D/T: S: 05/17/2018 (2136) The [facility] NAME: HOLLEY GAYLE Radiology Department PHYS: Ede Marte MD [address] : 1990 AGE: 27 SEX: F [place], [place] [address] LOC: Carlos2624 Wojciech PHONE #: [phone] EXAM DATE: 05/17/2018 STATUS: ADM IN FAX #: [phone] RAD NO: Page 1 Signed Report - US ABDOMEN [id number] 09:29:00 Patient Name: HOLLEY GAYLE Unit No: [id number] EXAMS: CPT CODE: [id number] US ABDOMEN LTD 26188 US of the right upper quadrant performed May 17, 2018 0915 hours . CLINICAL HISTORY: Pancreatitis . COMPARISON: None . DISCUSSION: Real time ham scale sonography was performed of the right [...] Technologist: Mariela Chilel RDMS Probe: Trnscrbd D/ (09) t.SDR.NMG Orig Print D/T: S: 05/17/2018 (0932) The [facility] NAME: HOLLEY GAYLE Radiology Department PHYS: Micah Aj [address] : 1990 AGE: 27 SEX: F [place] [address] LOC: CarlosERS PHONE #: [phone] EXAM DATE: 05/17/2018 STATUS: REG ER FAX #: [phone] RAD NO: Page 1 Signed Report Patient Name: HOLLEY GAYLE Unit No: [id number] EXAMS: CPT CO DE: [id number] ABDOMEN LTD 30099 <Continued> The [facility] NAME: NALININEVIN ORLANDOAKUA GR Radiology Department PHYS: Micah Aj [address] : 1990 AGE: 27 SEX: F [place] [address] LOC: CarlosERS PHONE #: [phone] EXAM DATE: 05/17/2018 STATUS: REG ER FAX #: [phone] RAD NO: Page 2 Signed Report COMPREHENSIVE METABOLIC [id number] 08:53:00* Test Item Value Reference Range Comments [...] mg/dL <130 (DESIRABLE) 130-159 (BORDERLINE) >=160 (HIGH) [id number] 08:53:00* Test Item Value Reference Range Comments AMYLASE (test code=JACQUELIN) 158 units/L 30-110 [id number] 08:53:00* Test Item Value Reference Range Comments LIPASE (test code=LIP) 1009 units/L 73-393 COMPREHENSIVE METABOLIC [id number] 08:00:00* Test Item Value Reference Range Comments [...] PHOSPHATASE TOTAL (test code=ALKP) 104 units/L 46-116 [id number] 08:00:00* Test Item Value Reference Range Comments LIPASE (test code=LIP) 1009 units/L 73-393 DRUGS OF ABUSE [id number] 07:48:00* Test Item Value Reference Range Comments UR COCAINE (test code=COCAU) NEGATIVE NEGATIVE DETECTION CUT OFF: 150 ng/mL UR CANNABINOIDS (test code=CANU) POSITIVE NEGATIVE RESULTS CALLED TO RASTA BILLINGSREAD BACK & CONFIRMED? Y.BY ALIZELDT 05/17/1846. DETECTION CUT OFF: 50 ng/mL UR AMPHETAMINE (test code=AMPHU) NEGATIVE NEGATIVE DETECTION CUT OFF: 500 ng/mL UR BARBITURATE QUAL (test code=BARBQLU) NEGATIVE NEGATIVE DETECTION CUT OFF: 200 ng/mL UR BENZODIAZEPINE (test code=BENZU) POSITIVE NEGATIVE RESULTS CALLED TO RASTA BILLINGSREAD BACK & CONFIRMED? Y.BY PABLOT 05/17/1848. DETECTION CUT OFF: 150 ng/mLPreviously reported result: NEGATIVE Edited by: GONSALO on 05/17/18:48BENZU prev. reported as:NEGATIVE . . UR OPIATES QUAL (test code=OPIAQLU) NEGATIVE NEGATIVE DETECTION CUT OFF: 100 ng/mL UR PHENCYCLIDINE (PCP) (test code=PHENCU) NEGATIVE NEGATIVE DETECTION CUT OFF: 25 ng/mL DRUGS OF ABUSE [id number] 07:46:00* Test Item Value Reference Range Comments UR COCAINE (test code=COCAU) NEGATIVE NEGATIVE DETECTION CUT OFF: 150 ng/mL UR CANNABINOIDS (test code=CANU) POSITIVE NEGATIVE RESULTS CALLED TO RASTA BILLINGSREAD BACK & CONFIRMED? Y.BY ALIZELDT 05/17/18 0746. DETECTION CUT OFF: 50 ng/mL [...] 25 ng/mL UA RFLX MICR CULT IF [id number] 07:42:00* Test Item Value Reference Range Comments [...] (test code=MUCU) RARE NONE SEEN CBC W/AUTO [id number] 07:34:00* Test Item Value Reference Range Comments [...] MORPHOLOGY REQUIRED (test code=PLTMR) NORMAL NORMAL URINALYSIS [id number] 09:33:00* Test Item Value Reference Range Comments [...] code=MUCU) TRACE /LPF NONE SEEN UR HCG [id number] 09:23:00* Test Item Value Reference Range Comments UR HCG QUAL (test code=HCGQLU) NEGATIVE NEGATIVE COMPREHENSIVE METABOLIC [id number] 10:14:00* Test Item Value Reference Range Comments [...] PHOSPHATASE TOTAL (test code=ALKP) 97 IUnit/L 20-125 [id number] 10:14:00* Test Item Value Reference Range Comments LIPASE (test code=LIP) 214 IUnit/L 73-393 COMPREHENSIVE METABOLIC [id number] 10:11:00* Test Item Value Reference Range Comments [...] ALKALINE PHOSPHATASE TOTAL (test code=ALKP) IUnit/L 20-125 [id number] 10:11:00* Test Item Value Reference Range Comments LIPASE (test code=LIP) 214 IUnit/L 73-393 CBC W/AUTO [id number] 09:48:00* Test Item Value Reference Range Comments [...] code=MDIFF) NO - CT ABD PELVIS W/O [id number] 23:09:00 Name: HOLLEY GAYLE [facility] : 1990 Age/S: 27 / F [address] [place] [address] Unit #: [id number] Loc: [place] [address] Phys: Hilario Perdue MD Acct: [id number] Dis Date: Status: REG ER PHONE #: [phone] Exam Date: 05/02/20187 FAX #: [phone] Reason: abdominal pain EXAMS: CPT CODE: [id number] CT ABD PELVIS W/O CONT 46239 PROCEDURE: CT ABDOMEN AND PELVIS WITHOUT CONTRAST 05/02/2018 INDICATION: Right lower quadrant abdominal pain for one month. Past history of hysterectomy, cholecystectomy and surgery. COMPARISON: Abdomen CT 01/16/2018. NOTE: Please note that this will constitute CT #19 of the abdomen and pelvis performed at a [facility] institution alone since 01/19/2010. TECHNIQUE: Helical imaging was performed diaphragm through the symphysis with axial and coronal reformations obtained. IV CONTRAST: None. GI CONTRAST: 10 mL Gastrografin diluted in water. The patient was unable to tolerate oral contrast. HRZ=080.15 mGy-cm FINDINGS: This examination is limited for [...] 1 Signed Report (CONTINUED) Name: HOLLEY GAYLE [facility] : 1990 Age/S: 27 / F [address] Unit #: [id number] Loc: [place] [address] Phys: Hilario Perdue MD Acct: [id number] Dis Date: Status: REG ER PHONE #: [phone] Exam Date: 05/02/2018 FAX #: [phone] Reason: abdominal pain EXAMS: CPT CODE: [id number] CT ABD PELVIS W/O CONT 86630 <Continued> ____ CT imaging performed at this location utilizes radiation dose optimization techniques which include one or more of the following: - Automated exposure control -Adjustment of the mA and/or kV according to patient size -Use of iterative reconstruction technique SL: ER-H at 2309 Reported and signed by: Miguel Alaniz M.D. CC: Hilario Perdue MD Technologist:RT Henrry(R) CTDI: DLP: Trnscb Date/Time: 05/02/2018 (2308) [email or web address] Orig Print D/T: S: 05/02/2018 (231) CTDI: DLP: PAGE 2 Signed Report HEPATIC FUNCTION [id number] 22:11:00* Test Item Value Reference Range Comments TOTAL PROTEIN (test code=PROT) 8.2 g/dL 6.4-8.2 ALBUMIN (test code=ALB) 3.90 g/dL 3.4-5.0 BILIRUBIN TOTAL (test code=BILT) 0.50 mg/dL 0.0-1.0 BILIRUBIN DIRECT (test code=BILD) < 0.10 MG/DL 0.0-0.30 BILIRUBIN INDIRECT (test code=BILIND) 0.40 MG/DL SGOT/AST (test code=AST) 19 IUnit/L 15-37 SGPT/ALT (test code=ALT) 30 IUnit/L 15-65 ALKALINE PHOSPHATASE TOTAL (test code=ALKP) 106 IUnit/L 20-125 [id number] 22:11:00* Test Item Value Reference Range Comments LIPASE (test code=LIP) 107 IUnit/L 73-393 [id number] 22:11:00* Test Item Value Reference Range Comments TROPONIN-I (test code=TROPI) < 0.015 ng/mL 0.000-0.045 Negative: <=0.045 Positive: >=0.046 Correlation with serial results, other cardiac markers andclinical findings is necessary to determine the clinicalsignificance of this result. Results using different methodologies should not be comparedto one another as quantitative results may vary by method. UR HCG [id number] 21:48:00* Test Item Value Reference Range Comments UR HCG QUAL (test code=HCGQLU) NEGATIVE NEGATIVE CBC W/AUTO [id number] 21:43:00* Test Item Value Reference Range Comments [...] MANUAL DIFF REQUIRED (test code=MDIFF) NO TROPONIN-I [id number] 21:28:00* Test Item Value Reference Range Comments TROPONIN-I RAPID (test code=TROPIRAP) 0.00 ng/mL 0.00-0.08 Performed by certified black ash burner operator [facility] Global Task Force with joint leadership from the EuropeanSociety of Cardiology (ESC), the [place] [employer] Foundation (ACCF), the [place] [employer] Association(AHA) and the World Heart Federation (WHF) refined past criteria of myocardial infarction (LA) with a universal definition of myocardial infarction that supports the use of cTnI as a preferred biomarker for myocardial injury. The universal definition of LA, according to this taskforce, is defined as [...] temporal changes in troponin levels characteristic of LA. URINALYSIS [id number] 20:54:00* Test Item Value Reference Range Comments [...] /LPF NONE SEEN COMMENTS: Clean CatchCHEMISTRY 8 [id number] 09:43:00* Test Item Value Reference Range Comments ISTAT-SODIUM (test code=NAP) mmol/L 135-146 ISTAT-POTASSIUM (test code=KP) mmol/L 3.5-4.9 ISTAT-CHLORIDE (test code=CLP) mmol/L 98-109 ISTAT-CARBON DIOXIDE (test code=ISTAT-CO2) mmol/L 24-29 ISTAT CALCIUM IONIZED (test code=ISTAT-RENE) mmol/L 1.12-1.32 ISTAT-GLUCOSE (test code=GLUP) mg/dL 70-105 ISTAT-BUN (test code=BUNP) mg/dL 8-26 BEDSIDE CREATININE (test code=CREATBED) mg/dL 0.6-1.3 GLOMERULAR FILTRATION RATE POC (test code=GFRBED) 155 71-165 CHEMISTRY 8 [id number] 09:43:00* Test Item Value Reference Range Comments [...] POC (test code=GFRBED) 155 71-165 CBC W/AUTO [id number] 09:43:00* Test Item Value Reference Range Comments [...] REQUIRED (test code=MDIFF) NO DIFF/SCN CRITERIA URINALYSIS [id number] 09:47:00* Test Item Value Reference Range Comments [...] NEGATIVE Leuk/mcL NEGATIVE DRUGS OF ABUSE SCREEN [id number] 09:47:00* Test Item Value Reference Range Comments [...] code=METHAURN) NEGATIVE SCcutoff <300 NG/ML BASIC METABOLIC [id number] 09:29:00* Test Item Value Reference Range Comments [...] (test code=CA) 8.5 MG/DL 8.5-10.1 HEPATIC FUNCTION [id number] 09:29:00* Test Item Value Reference Range Comments TOTAL PROTEIN (test code=PROT) 7.6 G/DL 6.4-8.2 ALBUMIN (test code=ALB) 3.6 G/DL 3.4-5.0 BILIRUBIN TOTAL (test code=BILT) 0.20 MG/DL 0.2-1.2 BILIRUBIN DIRECT (test code=BILD) < 0.10 MG/DL 0.00-0.30 BILIRUBIN INDIRECT (test code=BILIND) 0.10 MG/DL 0.2-1.2 SGOT/AST (test code=AST) 24 Unit/L 15-37 SGPT/ALT (test code=ALT) 64 Unit/L 12-78 ALKALINE PHOSPHATASE TOTAL (test code=ALKP) 107 Unit/L 45-117 [id number] 09:29:00* Test Item Value Reference Range Comments LIPASE (test code=LIP) 82 Unit/L 114-286 BASIC METABOLIC [id number] 09:27:00* Test Item Value Reference Range Comments [...] (test code=CA) 8.5 MG/DL 8.5-10.1 HEPATIC FUNCTION [id number] 09:27:00* Test Item Value Reference Range Comments TOTAL PROTEIN (test code=PROT) G/DL 6.4-8.2 ALBUMIN (test code=ALB) G/DL 3.4-5.0 BILIRUBIN TOTAL (test code=BILT) MG/DL 0.2-1.2 BILIRUBIN DIRECT (test code=BILD) MG/DL 0.00-0.30 BILIRUBIN INDIRECT (test code=BILIND) MG/DL 0.2-1.2 SGOT/AST (test code=AST) Unit/L 15-37 SGPT/ALT (test code=ALT) Unit/L 12-78 ALKALINE PHOSPHATASE TOTAL (test code=ALKP) Unit/L 45-117 [id number] 09:27:00* Test Item Value Reference Range Comments LIPASE (test code=LIP) 82 Unit/L 114-286 URINALYSIS [id number] 09:25:00* Test Item Value Reference Range Comments [...] NEGATIVE Leuk/mcL NEGATIVE DRUGS OF ABUSE SCREEN [id number] 09:25:00* Test Item Value Reference Range Comments [...] SCcutoff <300 NG/ML - XR ABD ACUTE [id number] 09:19:00 Name: HOLLEY GAYLE : 1990 Age/S: 27 / F [address] Unit #: [id number] Loc: [place] [address] Phys: Ranjit Lozano MD Acct: [id number] Dis Date: Status: REG ER PHONE #: [phone] Exam Date: 04/08/2018 0855 FAX #: Reason: abd pain EXAMS: CPT: [id number] XR ABD ACUTE W/CHEST 66772 Fluoro Time: DAP (Gy m2): Air Kerma [...] Araceli Joyce M.D. CC: Venus Asencio DO; Ranjit Lozano MD PAGE 1 Signed Report Name: HOLLEY GAYLE : 1990 Age/S: 27 / F [address] [facility] Unit #: [id number] Loc: [place] [address] Phys: Ranjit Lozano MD Acct: [id number] Dis Date: Status: REG ER PHONE #: [phone] Exam Date: 04/08/2018 0855 FAX #: Reason: abd pain EXAMS: CPT: [id number] XR ABD ACUTE W/CHEST 35277 Fluoro Time: DAP (Gy m2): Air Kerma (mGy): < Continued> Technologist: Brandee Romero RT(R)(CT) Trnscb Date/Time: 04/08/2018 (0919) [id number] Orig Print D/T: S: 04/08/2018 (0922) PAGE 2 Signed Report CBC W/AUTO DIFF [...] (test code=MDIFF) NO DIFF/SCN CRITERIA COMPREHENSIVE METABOLIC [id number] 11:09:00* Test Item Value Reference Range Comments [...] PHOSPHATASE TOTAL (test code=ALKP) 77 Unit/L 45-117 [id number] 11:09:00* Test Item Value Reference Range Comments LIPASE (test code=LIP) 84 Unit/L 114-286 URINALYSIS [id number] 11:00:00* Test Item Value Reference Range Comments [...] (test code=LEUU) NEGATIVE Leuk/mcL NEGATIVE CBC W/AUTO [id number] 10:59:00* Test Item Value Reference Range Comments [...] REQUIRED (test code=MDIFF) NO DIFF/SCN CRITERIA LACTIC [id number] 02:37:00* Test Item Value Reference Range Comments LACTIC ACID (test code=LACT) 0.9 mmol/L 0.4-1.9 BASIC METABOLIC [id number] 02:06:00* Test Item Value Reference Range Comments [...] (test code=CA) 8.7 mg/dL 8.5-10.1 BASIC METABOLIC [id number] 02:01:00* Test Item Value Reference Range Comments [...] 10-20 CALCIUM (test code=CA) mg/dL 8.5-10.1 LACTIC [id number] 23:03:00* Test Item Value Reference Range Comments LACTIC ACID (test code=LACT) 2.2 mmol/L 0.4-1.9 Results called to ABS4235 by [email or web address] 03/23/18 2303Critical results verified and read back by Nurse? Y DRUGS OF ABUSE SCREEN [id number] 22:00:00* Test Item Value Reference Range Comments [...] NEGATIVE <300 ng/mL DRUGS OF ABUSE SCREEN [id number] 21:38:00* Test Item Value Reference Range Comments [...] (test code=METHAURN) NEGATIVE <300 ng/mL BASIC METABOLIC [id number] 21:25:00* Test Item Value Reference Range Comments [...] (test code=CA) 9.6 mg/dL 8.5-10.1 HEPATIC FUNCTION [id number] 21:25:00* Test Item Value Reference Range Comments [...] reference range due to change in reagent. [id number] 21:25:00* Test Item Value Reference Range Comments LIPASE (test code=LIP) 38 U/L 73.0-393.0 HCG SERUM [id number] 21:25:00* Test Item Value Reference Range Comments HCG SERUM QUAL (test code=HCGQL) NEGATIVE NEGATIVE This HCGQL test is NOT applicable for MALE patients.Check with nurse about probable order error.If Tumor Marker Test needed, nurse should order test "HCGTU"(Test #550.53318) BASIC METABOLIC [id number] 21:24:00* Test Item Value Reference Range Comments [...] CALCIUM (test code=CA) mg/dL 8.5-10.1 HEPATIC FUNCTION [id number] 21:24:00* Test Item Value Reference Range Comments TOTAL PROTEIN (test code=PROT) gram/dL 6.4-8.2 ALBUMIN (test code=ALB) g/dL 3.4-5.0 GLOBULIN (test code=GLOB) gram/dL 2.7-4.2 ALBUMIN/GLOBULIN RATIO (test code=A/G) 0.75-1.50 BILIRUBIN TOTAL (test code=BILT) mg/dL 0.0-1.0 BILIRUBIN DIRECT (test code=BILD) mg/dL 0.0-0.20 SGOT/AST (test code=AST) IUnit/L 15-37 SGPT/ALT (test code=ALT) IUnit/L 12-78 ALKALINE PHOSPHATASE TOTAL (test code=ALKP) IUnit/L 45-117 [id number] 21:24:00* Test Item Value Reference Range Comments LIPASE (test code=LIP) U/L 73.0-393.0 HCG SERUM [id number] 21:24:00* Test Item Value Reference Range Comments HCG SERUM QUAL (test code=HCGQL) NEGATIVE NEGATIVE This HCGQL test is NOT applicable for MALE patients.Check with nurse about probable order error.If Tumor Marker Test needed, nurse should order test "HCGTU"(Test #550.98951) URINALYSIS [id number] 21:16:00* Test Item Value Reference Range Comments [...] #/HPF NONE Urine Source? Clean CatchBASIC METABOLIC [id number] 21:14:00* Test Item Value Reference Range Comments [...] CALCIUM (test code=CA) mg/dL 8.5-10.1 HEPATIC FUNCTION [id number] 21:14:00* Test Item Value Reference Range Comments TOTAL PROTEIN (test code=PROT) gram/dL 6.4-8.2 ALBUMIN (test code=ALB) g/dL 3.4-5.0 GLOBULIN (test code=GLOB) gram/dL 2.7-4.2 ALBUMIN/GLOBULIN RATIO (test code=A/G) 0.75-1.50 BILIRUBIN TOTAL (test code=BILT) mg/dL 0.0-1.0 BILIRUBIN DIRECT (test code=BILD) mg/dL 0.0-0.20 SGOT/AST (test code=AST) IUnit/L 15-37 SGPT/ALT (test code=ALT) IUnit/L 12-78 ALKALINE PHOSPHATASE TOTAL (test code=ALKP) IUnit/L 45-117 [id number] 21:14:00* Test Item Value Reference Range Comments LIPASE (test code=LIP) U/L 73.0-393.0 HCG SERUM [id number] 21:14:00* Test Item Value Reference Range Comments HCG SERUM QUAL (test code=HCGQL) NEGATIVE NEGATIVE This HCGQL test is NOT applicable for MALE patients.Check with nurse about probable order error.If Tumor Marker Test needed, nurse should order test "HCGTU"(Test #550.66194) CBC W/O [id number] 20:52:00* Test Item Value Reference Range Comments [...] 11.3 fL 6.7-11.0 URINALYSIS W/ REFLEX URINE [id number] 13:37:00* Test Item Value Reference Range Comments COLOR (BEAKER) (test pqdh=210) Yellow CLARITY (BEAKER) (test iujp=545) Clear SPECIFIC GRAVITY UA (BEAKER) (test jpms=022) 1.020 1.001-1.035 PH UA (BEAKER) (test qfvz=814) 7.0 5.0-8.0 PROTEIN UA (BEAKER) (test bjyl=433) 10 mg/dL Negative GLUCOSE UA (BEAKER) (test doaw=950) Negative Negative KETONES UA (BEAKER) (test zbqa=865) Negative Negative BILIRUBIN UA (BEAKER) (test dqen=985) Negative Negative BLOOD UA (BEAKER) (test jhkp=811) Negative Negative NITRITE UA (BEAKER) (test mznv=011) Negative Negative LEUKOCYTE ESTERASE UA (BEAKER) (test ysww=467) Negative Negative UROBILINOGEN UA (BEAKER) (test vgjz=376) 0.2 mg/dL 0.2-1.0 RBC UA (BEAKER) (test uwpk=832) 1 /HPF WBC UA (BEAKER) (test wgis=308) 1 /HPF BACTERIA (BEAKER) (test xcrf=362) Occasional MUCUS (BEAKER) (test qbsk=3300) Rare SQUAMOUS EPITHELIAL (BEAKER) (test jdfe=581) 7 /HPF SOURCE(BEAKER) (test ovgc=6874) SCREEN, [id number] 13:20:00* Test Item Value Reference Range Comments TEST URINE (BEAKER) (test qnur=868) Negative [id number] 12:58:00* Test Item Value Reference Range Comments LIPASE (BEAKER) (test lfbk=283) 7 U/L 8-78 BASIC METABOLIC [id number] 12:58:00* Test Item Value Reference Range Comments SODIUM (BEAKER) (test kkxp=865) 133 meq/L 136-145 POTASSIUM (BEAKER) (test cdcd=042) 4.2 meq/L 3.5-5.1 CHLORIDE (BEAKER) (test elip=488) 103 meq/L 98-107 CO2 (BEAKER) (test hvbc=319) 21 meq/L 22-29 BLOOD UREA NITROGEN (BEAKER) (test cngo=679) 10 mg/dL 7-21 CREATININE (BEAKER) (test odzd=572) 0.66 mg/dL 0.57-1.25 GLUCOSE RANDOM (BEAKER) (test habj=205) 85 mg/dL 70-105 CALCIUM (BEAKER) (test crct=484) 9.6 mg/dL 8.4-10.2 EGFR (BEAKER) (test ilut=2143) 106 mL/min/1.73 sq m ESTIMATED GFR IS NOT ACCURATE CREATININE CLEARANCE IN PREDICTING GLOMERULAR FILTRATION RATE. ESTIMATED GFR IS NOT APPLICABLE FOR DIALYSIS PATIENTS. HEPATIC FUNCTION [id number] 12:58:00* Test Item Value Reference Range Comments TOTAL PROTEIN (BEAKER) (test zfez=031) 8.1 gm/dL 6.0-8.3 ALBUMIN (BEAKER) (test xrra=0932) 4.6 g/dL 3.5-5.0 BILIRUBIN TOTAL (BEAKER) (test kuat=705) 0.5 mg/dL 0.2-1.2 BILIRUBIN DIRECT (BEAKER) (test wgyl=572) 0.2 mg/dL 0.1-0.5 ALKALINE PHOSPHATASE (BEAKER) (test bqws=018) 102 U/L 40-150 AST (SGOT) (BEAKER) (test vmyy=930) 18 U/L 5-34 ALT (SGPT) (BEAKER) (test bfja=179) 40 U/L 6-55 CBC W/PLT COUNT & AUTO [id number] 12:40:00* Test Item Value Reference Range Comments WHITE BLOOD CELL COUNT (BEAKER) (test mubj=776) 9.7 K/ L 3.5-10.5 RED BLOOD CELL COUNT (BEAKER) (test omfv=967) 4.40 M/ L 3.93-5.22 HEMOGLOBIN (BEAKER) (test qkwv=133) 12.4 GM/DL 11.2-15.7 HEMATOCRIT (BEAKER) (test iaie=248) 39.8 % 34.1-44.9 MEAN CORPUSCULAR VOLUME (BEAKER) (test myaa=963) 90.5 fL 79.4-94.8 MEAN CORPUSCULAR HEMOGLOBIN (BEAKER) (test tpud=609) 28.2 pg 25.6-32.2 MEAN CORPUSCULAR HEMOGLOBIN CONC (BEAKER) (test bskr=658) 31.2 GM/DL 32.2-35.5 RED CELL DISTRIBUTION WIDTH (BEAKER) (test agxb=163) 16.6 % 11.7-14.4 PLATELET COUNT (BEAKER) (test azsj=322) 340 K/CU MM 150-450 MEAN PLATELET VOLUME (BEAKER) (test pcgf=874) 11.4 fL 9.4-12.3 NUCLEATED RED BLOOD CELLS (BEAKER) (test jhhr=222) 0 /100 WBC 0-0 NEUTROPHILS RELATIVE PERCENT (BEAKER) (test elyf=267) 74 % LYMPHOCYTES RELATIVE PERCENT (BEAKER) (test lgfz=537) 22 % MONOCYTES RELATIVE PERCENT (BEAKER) (test afrq=645) 3 % EOSINOPHILS RELATIVE PERCENT (BEAKER) (test xvob=428) 1 % BASOPHILS RELATIVE PERCENT (BEAKER) (test hjwm=319) 0 % NEUTROPHILS ABSOLUTE COUNT (BEAKER) (test clxl=250) 7.15 K/ L 1.56-6.13 LYMPHOCYTES ABSOLUTE COUNT (BEAKER) (test qtvc=772) 2.12 K/ L 1.18-3.74 MONOCYTES ABSOLUTE COUNT (BEAKER) (test fbjp=481) 0.27 K/ L 0.24-0.36 EOSINOPHILS ABSOLUTE COUNT (BEAKER) (test aaej=923) 0.05 K/ L 0.04-0.36 BASOPHILS ABSOLUTE COUNT (BEAKER) (test phoq=750) 0.04 K/ L 0.01-0.08 IMMATURE GRANULOCYTES-RELATIVE PERCENT (BEAKER) (test nxbf=7362) 0 % 0-1 CT, [id number] 13:15:00Reason for exam:->ABDOMINAL PAINIs the patient ?->NoWhat [...] Status post cholecystectomy and hysterectomy. Signed: Sandy Quinnort Verif ied Date/Time: 10/20/2017 13:15:31 Reading Location: [facility] [id number] Ortho Consult Reading Room 01: 15 PM [id number] 10:40:00* Test Item Value Reference Range Comments LIPASE (BEAKER) (test ofjh=185) 8 U/L 8-78 BASIC METABOLIC [id number] 10:40:00* Test Item Value Reference Range Comments SODIUM (BEAKER) (test sdcr=646) 133 meq/L 136-145 POTASSIUM (BEAKER) (test hake=893) 4.2 meq/L 3.5-5.1 CHLORIDE (BEAKER) (test zlrx=772) 105 meq/L 98-107 CO2 (BEAKER) (test hjfo=065) 16 meq/L 22-29 BLOOD UREA NITROGEN (BEAKER) (test ptin=584) 10 mg/dL 7-21 CREATININE (BEAKER) (test hhyn=432) 0.64 mg/dL 0.57-1.25 GLUCOSE RANDOM (BEAKER) (test vlzf=912) 89 mg/dL 70-105 CALCIUM (BEAKER) (test oznd=294) 10.0 mg/dL 8.4-10.2 EGFR (BEAKER) (test ljgf=0456) 110 mL/min/1.73 sq m ESTIMATED GFR IS NOT ACCURATE CREATININE CLEARANCE IN PREDICTING GLOMERULAR FILTRATION RATE. ESTIMATED GFR IS NOT APPLICABLE FOR DIALYSIS PATIENTS. HEPATIC FUNCTION [id number] 10:40:00* Test Item Value Reference Range Comments TOTAL PROTEIN (BEAKER) (test mqcd=986) 8.3 gm/dL 6.0-8.3 ALBUMIN (BEAKER) (test tzui=7952) 4.4 g/dL 3.5-5.0 BILIRUBIN TOTAL (BEAKER) (test qrfn=032) 0.6 mg/dL 0.2-1.2 BILIRUBIN DIRECT (BEAKER) (test vkhp=847) 0.3 mg/dL 0.1-0.5 ALKALINE PHOSPHATASE (BEAKER) (test tmpe=933) 107 U/L 40-150 AST (SGOT) (BEAKER) (test fdwo=889) 29 U/L 5-34 ALT (SGPT) (BEAKER) (test tayv=814) 42 U/L 6-55 URINALYSIS W/ [id number] 10:38:00* Test Item Value Reference Range Comments COLOR (BEAKER) (test jjxl=612) Yellow CLARITY (BEAKER) (test dvih=053) Clear SPECIFIC GRAVITY UA (BEAKER) (test fsdh=567) 1.021 1.001-1.035 PH UA (BEAKER) (test zfiy=903) 6.0 5.0-8.0 PROTEIN UA (BEAKER) (test ymsc=187) 10 mg/dL Negative GLUCOSE UA (BEAKER) (test mwfc=166) Negative Negative KETONES UA (BEAKER) (test vwox=741) Negative Negative BILIRUBIN UA (BEAKER) (test vzza=673) Negative Negative BLOOD UA (BEAKER) (test atxw=676) Negative Negative NITRITE UA (BEAKER) (test aolx=992) Negative Negative LEUKOCYTE ESTERASE UA (BEAKER) (test zjka=580) Negative Negative UROBILINOGEN UA (BEAKER) (test kfum=725) 0.2 mg/dL 0.2-1.0 RBC UA (BEAKER) (test ywgf=486) 1 /HPF WBC UA (BEAKER) (test ikfh=116) < /HPF MUCUS (BEAKER) (test tufo=3903) Few SQUAMOUS EPITHELIAL (BEAKER) (test bdjy=850) 3 /HPF SOURCE(BEAKER) (test crib=0955) CBC W/PLT COUNT & AUTO [id number] 10:33:00* Test Item Value Reference Range Comments WHITE BLOOD CELL COUNT (BEAKER) (test finy=747) 8.7 K/ L 3.5-10.5 RED BLOOD CELL COUNT (BEAKER) (test hgmg=052) 4.13 M/ L 3.93-5.22 HEMOGLOBIN (BEAKER) (test dfwc=584) 12.0 GM/DL 11.2-15.7 HEMATOCRIT (BEAKER) (test qedq=723) 36.9 % 34.1-44.9 MEAN CORPUSCULAR VOLUME (BEAKER) (test cnhb=445) 89.3 fL 79.4-94.8 MEAN CORPUSCULAR HEMOGLOBIN (BEAKER) (test xfor=379) 29.1 pg 25.6-32.2 MEAN CORPUSCULAR HEMOGLOBIN CONC (BEAKER) (test etvn=999) 32.5 GM/DL 32.2-35.5 RED CELL DISTRIBUTION WIDTH (BEAKER) (test lsqo=995) 16.6 % 11.7-14.4 PLATELET COUNT (BEAKER) (test jobm=091) 383 K/CU MM 150-450 MEAN PLATELET VOLUME (BEAKER) (test yyza=250) 10.4 fL 9.4-12.3 NUCLEATED RED BLOOD CELLS (BEAKER) (test xvtk=560) 0 /100 WBC 0-0 NEUTROPHILS RELATIVE PERCENT (BEAKER) (test pidf=188) 64 % LYMPHOCYTES RELATIVE PERCENT (BEAKER) (test ckrz=250) 30 % MONOCYTES RELATIVE PERCENT (BEAKER) (test bekh=188) 4 % EOSINOPHILS RELATIVE PERCENT (BEAKER) (test yyfi=866) 1 % BASOPHILS RELATIVE PERCENT (BEAKER) (test wjly=275) 1 % NEUTROPHILS ABSOLUTE COUNT (BEAKER) (test qplk=823) 5.54 K/ L 1.56-6.13 LYMPHOCYTES ABSOLUTE COUNT (BEAKER) (test ewws=092) 2.59 K/ L 1.18-3.74 MONOCYTES ABSOLUTE COUNT (BEAKER) (test rznb=363) 0.37 K/ L 0.24-0.36 EOSINOPHILS ABSOLUTE COUNT (BEAKER) (test grjt=426) 0.12 K/ L 0.04-0.36 BASOPHILS ABSOLUTE COUNT (BEAKER) (test ofoq=513) 0.05 K/ L 0.01-0.08 IMMATURE GRANULOCYTES-RELATIVE PERCENT (BEAKER) (test mwts=9531) 0 % 0-1 SCREEN, [id number] 10:28:00* Test Item Value Reference Range Comments TEST URINE (BEAKER) (test mkcl=394) Negative ABDOMEN ACUTE SERIES W/PA CXR [place] [address] Patient Name: HOLLEY GAYLE MR #: [id number] : 1990 Age/Sex: 27/F Req #: [id number] Adm Physician: Ordered by: RG KWOK MD Report #: [id number] Location: ER Room/Bed: Procedure: [id number] DX/ABDOMEN ACUTE SERIES W/PA CXR Exam Date: [...] evidence of bowel obstruction. Dictated by: Lauri Kingsley M.D. on 06/09/2017 at 16:27 Electronically approved by: Cynthia Kingsley M.D. on 06/09/2017 at 16:27 Dictated By: SHANIKA KINGSLEY MD 26 Transcribed By: SUYAPA on 06/09/171626 COPY TO: RG KWOK MD CT ABDOMEN/PELVIS WO [place] [address] Patient Name: HOLLEY GAYLE MR #: [id number] : 1990 Age/Sex: 26/F Req #: [id number] Adm Physician: Ordered by: RG KWOK MD Report #: [id number] Location: ER Room/Bed: Procedure: [id number] CT/CT ABDOMEN/PELVIS WO Exam Date: 05/31/17 Exam [...] reformations were obt ained. DLP: 675.02 COMPARISON: [facility], CT, CT ABDOMEN /PELVIS W, 10/01/2016, 2:50. [...] dilatation. 4. Status pos t hysterectomy. Alisha Man M.D. Dictated by: Alisha Man M.D. on 05/31/2017 at 11:57 Electronically approved by: Alisha Man M.D. on 05/31/2017 at 11:57 Dictated By: ANABELL MAN MD, MD 11 57 Transcribed By: SUYAPA on 05/31/17 1343 COPY TO: RG KWOK MD
--- OUTSIDE RECORDS SUMMARY | 2019-05-10 16:47 | XMS REPORT | Summary of Care ---
Author Author [facility] - Health Organization [facility] - Health Address Unknown Phone Unavailable Care Team Providers Care Gasket Winder Name Role Phone Geraldine Lacy PCP Reason for Referral * (Routine) Referred By Contact Referred To Contact Status Reason Specialty Diagnoses / Procedures Calvin Farnsworth, PNEUMATIC DRUM SANDER [address] [place] [address] Geraldine Lacy [address] [address] [place] [address] New Request Diagnoses Left lower quadrant abdominal pain P rocedures Discharge Follow-up: PCP GERALDINE LACY V; 2 Weeks * Radiology Services (STAT) Referred By Contact Referred To Contact Status Reason Specialty Diagnoses / Procedures Natanael Nelson, PNEUMATIC DRUM SANDER [address] [place] [address] New Request Diagnostic Diagnoses Radiology Left lower quadrant abdominal pain P rocedures US PELVIS COMPLETE WITH TRANSVAGINAL Reason for Visit * Reason Comments Abdominal Pain * Auth/Cert Referred By Contact Referred To Contact Status Reason Specialty Diagnoses / Procedures [facility] Emergency Dept [address] [place] [address] Emergency Medicine Encounter Details Care Team Description Date Type Department Jacobo José MD [address] [facility] [facility] [place], [place] [id number] Angeli Liu MD [address] [facility] [address] [place] [address] Intractable abdominal pain 03/24/[address] [facility] Health - Medicine/Surgery CLC 6B 03/25/2019 [address] [place] [address] Allergies No Known Allergiesdocumented as of this encounter (statuses as of 03/25/2019) Medications End Date Status Medication Sig Dispensed [...] mouth every 4 (four) hours as needed. 03/24/2019 Discontinued (Discontinued by another clinician) ESTRADIOL TRANSDERMAL Apply to 0 PATCH TRANSDERMAL skin. documented as of this encounter (statuses as of 03/25/2019) Active Problems Problem Noted Date Intractable abdominal pain 03/24/2019 Nausea & vomiting 02/14/2018 Obesity (BMI 30-39.9) 02/14/2018 documented as of this encounter (statuses as of 03/25/2019) Social History Date Tobacco Use Types Packs/Day [...] Signs Reading Time Taken Comments Vital Sign 133/90 03/25/2019 11:28 AM [employer]ENT[employer] SUPERVISOR Blood Pressure 60 03/25/2019 11:28 AM [employer] SUPERVISOR Pulse 36.4 C (97.5 F) 03/25/2019 11:28 AM [employer] SUPERVISOR Temperature 18 03/25/2019 11:28 AM [employer] SUPERVISOR Respiratory Rate 99% 03/25/2019 11:28 AM [employer] SUPERVISOR Oxygen Saturation - - Inhaled Oxygen Concentration 79.8 kg (175 lb 14.8 oz) 03/24/2019 3:12 PM [employer] SUPER[employer] Weight 154.9 cm (5' 1") 03/24/2019 3:12 PM [employer] SUPER[employer] Height 33.24 03/24/2019 3:12 PM [employer] SUPER[employer] Body Mass Index documented in this encounter Discharge Instructions * Attachments The following attachments cannot be sent through Care Everywhere.* Abdominal Pain, Adult ([place]) * Abdominal Pain, Unknown Cause, (Female) ([place]) * Pain, Acute, Uncertain Cause ([place]) * Vomiting (Adult) ([place]) * Vomiting and Diarrhea, Nonspecific (Adult) ([place]) * High Blood Pressure, What Is? ([place]) documented in this encounter Plan of Treatment Order Schedule Name Type Priority Associated Diagnoses EVERY 24 HOURS (START TIME ADJUSTABLE) for 3 Days starting 03/26/2019 until 03/28/2019 CBC WITH DIFF LAB Routine EVERY 24 HOURS (START TIME ADJUSTABLE) for 3 Days starting 03/26/2019 until 03/28/2019 COMP. METABOLIC PANEL LAB Routine (82496) Health Maintenance Due Date Last Done Comments VARICELLA VACCINES (1 of 1989 2 - 2-dose childhood series) DTaP,Tdap,and Td Vaccines 06/03/1999 (1 - Tdap) PAP SMEAR 2009 INFLUENZA VACCINE (#1) 2018 PNEUMOCOCCAL 0-64 YEARS Aged Out No longer eligible based COMBINED SERIES on patient's age to complete this topic documented as of this encounter Procedures Comments Procedure Name Priority Date/Time Associated Diagnosis US PELVIS COMPLETE WITH STAT 03/24/2019 Left lower quadrant TRANSVAGINAL 2:36 PM [employer] SUPER[employer] abdominal pain CBC WITH DIFFERENTIAL STAT 03/24/2019 Left lower quadrant 11:27 AM [employer] SUPERVISOR abdominal pain EXTRA TUBE LT. BLUE STAT 03/24/2019 11:27 AM [employer] SUPERVISOR CBC WITH DIFFERENTIAL Routine 03/24/2019 Left lower quadrant 11:27 AM [employer] SUPERVISOR abdominal pain BASIC METABOLIC PANEL STAT 03/24/2019 Left lower quadrant (NA, K, CL, CO2, GLUCOSE, 11:27 AM [employer] SUPERVISOR abdominal pain BUN, CREATININE, CA) URINALYSIS STAT 03/24/2019 Left lower quadrant 9:05 AM [employer] SUPERVISOR abdominal pain GALV/CLC ONLY - URINE STAT 03/24/2019 Left lower quadrant DRUG (IMMUNOASSAY) - 4 ER 9:05 AM [employer] SUPERVISOR abdominal pain PANEL documented in this encounter Results * US PELVIS COMPLETE WITH TRANSVAGINAL (03/24/2019 2:36 PM [employer]PENT[employer] SUPERVISOR) Specimen Impressions Performed At 1. Status post hysterectomy. PACS/VR/DOSE 2. No adnexal mass identified. 3. No free fluid. Narrative Performed At EXAM: US PELVIS COMPLETE WITH TRANSVAGINAL PACS/VR/DOSE HISTORY: 28 year -old woman with pelvic pain with history of endometriosis . TECHNIQUE: Transabdominal and transvaginal ultrasound imaging of the pelvis was performed including color Doppler evaluation. Provider Scribe images were obtained for the record. COMPARISON: CT abdomen pelvis with contrast, 05/12/2018. FINDINGS: Uterus: Status post hysterectomy. Unremarkable appearance of the vaginal cuff. Adnexa: Neither ovary identified. (Per bi analyst, patient reports ovaries removed. No adnexal mass. Cul-de-sac: No free fluid. Procedure Note [facility], Radiant Results Inft User - 03/24/2019 2:47 PM [employer]PENTERS SUPERVISOR EXAM: US PELVIS COMPLETE WITH TRANSVAGINAL HISTORY: 28 year -old woman with pelvic pain with history of endometriosis . TECHNIQUE: Transabdominal and transvaginal ultrasound imaging of the pelvis was performed including color Doppler evaluation. Provider Scribe images were obtained for the record. COMPARISON: CT abdomen pelvis with contrast, 05/12/2018. FINDINGS: Uterus: Status post hysterectomy. Unremarkable appearance of the vaginal cuff. Adnexa: Neither ovary identified. (Per bi analyst, patient reports ovaries removed. No adnexal mass. Cul-de-sac: No free fluid. IMPRESSION 1. Status post hysterectomy. 2. No adnexal mass identified. 3. No free fluid. Performing Organization Address City/State/Zipcode Phone Number PACS/VR/DOSE * EXTRA TUBE LT. BLUE (03/24/2019 11:27 AM [employer]PENTERS SUPERVISOR) Specimen Blood Performing Organization Address City/State/Zipcode Phone Number [facility] CLIA: [id number], [address] [place] [address] [facility] * CBC WITH DIFFERENTIAL (03/24/2019 11:27 AM [employer]PENTERS SUPERVISOR) WBC 10.14 4.30 - 11.[address] [facility] 10*3/L [facility] RBC 4.00 3.93 - 5.25 10*6/L [facility] HGB 10.5 (L) 11.6 - 15.0 g/dL [facility] HCT 33.2 (L) 35.7 - 45.2 % [facility] MCV 83.0 80.6 - 95.5 fL [facility] MCH 26.3 25.9 - 32.8 pg [facility] MCHC 31.6 31.6 - 35.1 g/dL [facility] RDW-SD 55.1 (H) 39.0 - 49.9 fL [facility] RDW-CV 18.6 (H) 12.0 - 15.5 % [facility] PLT 478 (H) 166 - 358 10*3/L [facility] MPV 10.7 9.5 - 12.9 fL [facility] NRBC/100 WBC 0.0 0.0 - 10.0 /100 WBCs [facility] NRBC x10^3 <0.01 10*3/L [facility] GRAN MAT (NEUT) 77.0 % [facility] % [facility] IMM GRAN % 0.40 % [facility] LYMPH % 17.2 % [facility] MONO % 4.4 % [facility] EOS % 0.5 % [facility] BASO % 0.5 % [facility] GRAN MAT 7.81 (H) 1.88 - 7.09 10*3/uL [facility] x10^3(ANC) [facility] IMM GRAN x10^3 0.04 0.00 - 0.06 10*3/uL [facility] LYMPH x10^3 1.74 1.32 - 3.29 10*3/uL [facility] MONO x10^3 0.45 0.33 - 0.92 10*3/uL [facility] EOS x10^3 0.05 0.03 - 0.39 10*3/uL [facility] BASO x10^3 0.05 0.01 - 0.07 10*3/uL [facility] Specimen Blood - VENOUS Performing Organization Address City/State/Zipcode Phone Number [facility] CLIA: [id number], [address] [place] [address] [facility] * Basic Metabolic Panel (NA, K, CL, CO2, GLUCOSE, BUN, CREATININE, CA) (03/24/2019 11:27 AM [employer]PENTERS SUPERVISOR) NA 138 135 - 145 mmol/L [facility] K 4.5Comment: Slight hemolysis 3.5 - 5.0 mmol/L [facility] CL 102 98 - 108 mmol/L [facility] CO2 TOTAL 24 23 - 31 mmol/L [facility] AGAP 12 2 - [address] [facility] BUN 10Comment: Slight hemolysis 7 - 23 mg/dL [facility] GLUCOSE 112 (H) 70 - 110 mg/dL [facility] CREATININE 0.50 0.50 - 1.04 mg/dL [facility] CALCIUM 10.1 8.6 - 10.6 mg/dL [facility] eGFR 144.9 mL/min/1.73m2 [facility] Calculation [facility] (Non-[facility] [place]) eGFR 175.6 mL/min/1.73m2 [facility] Calculation [facility] ([facility] [place]) Specimen Blood - VENOUS Narrative Performed At Association of Glomerular Filtration Rate (GFR) and Staging of Kidney Disease* [facility] + + + + [facility] | GFR (mL/min/1.73 m2) | With Kidney [...] abnormalities in imaging tests). Performing Organization Address [facility] Phone Number [facility] CLIA: [id number], [address] [place] [address] [facility] * Drug Screen ER (03/24/2019 9:05 AM [employer]ENTERS SUPERVISOR) AMPHET Negative Negative [facility] Cocaine Negative Negative [facility] Metabolite [facility] OPIATES Negative Negative [facility] THC Presumptive Positive (A) Negative [facility] Specimen Urine - URINE, CLEAN CATCH Narrative Performed At Urine Drug Cutoff Ranges [facility] Amphetamine: 1,000 ng/mL [facility] Cocaine: 150 ng/mL [facility] Opiates: 300 ng/mL Cannabinoids: 50 ng/mL The results are to be used only for medical (i.e., treatment) purposes. Unconfirmed screening results must not be used for non-medical purposes (e.g., employment testing, legal testing). Performing Organization Address [facility] Phone Number [facility] CLIA: [id number], [address] [place] [address] [facility] * Urinalysis (03/24/2019 9:05 AM [employer]PENTERS SUPERVISOR) APPEARANCE Clear Clear [facility] COLOR Yellow Yellow [facility] PH 6.0 4.8 - 8.0 [facility] SP GRAVITY 1.015 1.003 - 1.[address] [facility] GLU U QUAL Normal Normal [facility] BLOOD Negative Negative [facility] KETONES Negative Negative [facility] PROTEIN Negative Negative [facility] UROBILIN Normal Normal [facility] BILIRUBIN Negative Negative [facility] NITRITE Negative Negative [facility] SERVICES-[facility] LEUK MARITZA Negative Negative [facility] SERVICES-[facility] RBC/HPF 1 0 - [address] [facility] SERVICES-[facility] WBC/HPF <1 0 - [address] [facility] SERVICES-[facility] BACTERIA Negative Negative [facility] SERVICES-[facility] SQ EPITH 1 <=[address] [facility] Specimen Urine - URINE, CLEAN CATCH Performing Organization Address City/State/Zipcode Phone Number [facility] CLIA: [id number], [address] [place], [place] [address] [facility] documented in this encounter Visit Diagnoses Diagnosis Left lower quadrant abdominal pain - Primary Intractable abdominal pain Abdominal pain, unspecified site documented in this encounter Administered Medications Action Date Dose Rate Site Medication Order MAR Action acetaminophen (TYLENOL) tablet 650 mg 650 mg, Oral, Q6HPRN, Starting Wed03/24/19 at 1414, Until Discontinued, Routine, Pain (scale 1-3) hydralAZINE (APRESOLINE) injection 10 mg 10 mg, Intravenous, Q6HPRN, Starting Wed03/24/19 at 2145, Until Discontinued, Routine, Hypertension HYDROcodone-acetaminophen (NORCO 5) 5-325 mg tablet 1 tablet 1 tablet, Oral, Q6HPRN, Starting Wed03/24/19 at 1414, Until 03/26/19 at 1413, Routine, Pain (scale 4-6) 03/25/2019 12:44 PM [employer] SUPER[employer] 4 mg morpHINE injection 4 mg Given 4 mg, Slow IV Push, Q4HPRN, Starting Wed03/24/19 at 1414, Until Discontinued, Routine, Pain (scale 7-10) 4 mg Given 03/25/2019 8:35 AM [employer] SUPER[employer] 4 mg Given 03/25/2019 4:40 AM [employer] SUPER[employer]OR 03/25/2019 3:36 AM [employer] SUPER[employer]OR 1,000 mL 125 mL/hr NaCl 0.9% (NS) IV infusion 1,000 mL New Bag at 125 mL/hr, IV Infusion, CONTINUOUS, Starting Wed03/24/19 at 1430, Until Discontinued, Routine 1,000 mL 125 mL/hr New Bag 03/24/2019 4:18 PM [employer] SUPER[employer] 1,000 mL 125 mL/hr New Bag 03/24/2019 2:01 PM [employer] SUPER[employer]OR 03/25/2019 3:34 AM [employer] SUPER[employer]OR 20 mg omeprazole (PRILOSEC) capsule 20 mg Given 20 mg, Oral, DAILY, First dose on 03/25/19 at 0245, Until Discontinued, Routine 03/25/2019 11:00 AM [employer] SUPERVISOR 10 mg proCHLORperazine (COMPAZINE) injection Given 10 mg 10 mg, Slow IV Push, Q6HPRN, Starting 03/24/19 at 1414, Until Discontinued, Routine, Nausea and Vomiting (N/V) 10 mg Given 03/25/2019 4:41 AM [employer] SUPERVISOR 10 mg Given 03/24/2019 4:17 PM [employer] SUPER[employer]OR Action Date Dose Rate Site Medication Order MAR Action 03/24/2019 11:41 AM [employer]ERS SUPERVISOR 50 mcg FENTanyl PF (SUBLIMAZE (PF)) injection Given 50 mcg 50 mcg, Slow IV Push, ONCE, 1 dose, Wed03/24/19 at 1245, STAT 03/24/2019 12:34 PM [employer] SUPER[employer] 50 mcg FENTanyl PF (SUBLIMAZE (PF)) injection Given 50 mcg 50 mcg, Slow IV Push, ONCE, 1 dose, Wed03/24/19 at 1330, STAT 03/24/2019 10:09 AM [employer] SUPERVISOR 30 mg Left Ventrogluteal-IM ketorolac (TORADOL) injection 30 mg Given 30 mg, Intramuscular, ONCE, 1 dose, Wed03/24/19 at 1100, [facility], presentation team member approving Restricted medication: JACOBO JOSÉ 03/24/2019 10:00 AM [employer] SUPERVISOR 4 mg morpHINE injection 4 mg Given 4 mg, Slow IV Push, ONCE, 1 dose, Wed03/24/19 at 1000, STAT 03/24/2019 10:09 AM [employer] SUPER[employer]OR 4 mg morpHINE injection 4 mg Given 4 mg, Slow IV Push, ONCE, 1 dose, Wed03/24/19 at 1045, STAT 03/24/2019 2:01 PM [employer] SUPER[employer]OR 4 mg morpHINE injection 4 mg Given 4 mg, Slow IV Push, ONCE, 1 dose, Wed03/24/19 at 1500, STAT 03/24/2019 12:34 PM [employer] SUPER[employer]OR 4 mg ondansetron (ZOFRAN (PF)) injection 4 mg Given 4 mg, Slow IV Push, ONCE, 1 dose, Wed03/24/19 at 1330, ALYX 03/24/2019 9:14 AM [employer] SUPER[employer]OR 4 mg ondansetron (ZOFRAN-ODT) disintegrating Given tablet 4 mg 4 mg, Oral, ONCE, 1 dose, 03/24/19 at 1015, Routine 03/24/2019 10:39 PM [employer] SUPER[employer]OR 10 mg proCHLORperazine (COMPAZINE) injection Given 10 mg 10 mg, Slow IV Push, ONCE, 1 dose, 03/24/19 at 2245, Routine 03/24/2019 2:01 PM [employer] SUPERVISOR 25 mg proMETHazine (PHENERGAN) 25 mg in NaCl Given 0.9% (NS) 50 mL piggyback 25 mg, IV Piggyback, ONCE, 1 dose, Wed03/24/19 at 1500, 50 mL documented in this encounter Insurance Type Payer Benefit Subscriber ID Effective Phone Address Plan / Dates Group PPO/POS [place] [id number] 2017-P [phone] [address] [facility] [id number] [place] [address] documented as of this encounter
--- OUTSIDE RECORDS SUMMARY | 2019-05-10 16:47 | XMS REPORT | Summary of Care ---
Author Author [facility] - Health Organization [facility] - Health Address Unknown Phone Unavailable Care Team Providers Care Laboratory Technician Name Role Phone Yoni Higgins PCP Reason for Referral * Radiology Services (STAT) Referred By Contact Referred To Contact Status Reason Specialty Diagnoses / Procedures Addie [facility], DO [address] [address] New Request Diagnostic Diagnoses Radiology Left lower quadrant abdominal pain P rocedures Chest 1 View * MRI/CAT Scan (STAT) Referred By Contact Referred To Contact Status Reason Specialty Diagnoses / Procedures Addie [facility], DO [address] [address] New Request Diagnostic Diagnoses Radiology Left lower quadrant abdominal pain P rocedures CT ABDOMEN PELVIS W CONTRAST Reason for Visit * Reason Comments Abdominal Pain * Auth/Cert Referred By Contact Referred To Contact Status Reason Specialty Diagnoses / Procedures [facility] Emergency Dept [address] [place] [address] Emergency Medicine Encounter Details Care Team Description Date Type Department Addie [facility], DO [address] [id number] Burton Dye MD [address] [place] [address] Intractable abdominal pain 05/06/2019 Emergency [facility] Health Medicine/Surgery [facility] [address] [place] [address] Allergies Comments Active Allergy Reactions Severity Noted Date Dizzy Dizzy Codeine Hives Medium 01/31/2019 documented as of this encounter (statuses as of 05/06/2019) Medications End Date Status Medication Sig Dispensed Refills Start Date 05/06/2019 Discontinued ALPRAZOLAM ORAL Take by 0 mouth. 05/06/2019 Discontinued escitalopram oxalate Take by 0 (LEXAPRO ORAL) mouth. 05/06/2019 Discontinued HYDROXYZINE HCL ORAL Take by 0 mouth. 05/06/2019 Discontinued lamotrigine (LAMICTAL Take by 0 ORAL) mouth. 05/06/2019 Discontinued ondansetron 4 mg tablet Take 4 mg by 0 mouth every 8 (eight) hours as needed. 05/06/2019 Discontinued traMADol (ULTRAM) 50 mg Take 1 tablet 10 tablet 0 tabletIndications: by mouth 9 Musculoskeletal strain every 6 (six) hours as needed (pain). 05/06/2019 Discontinued proMETHazine 25 mg tablet Take 25 mg by 0 mouth every 4 (four) hours as needed. 05/06/2019 Discontinued levETIRAcetam (KEPPRA) Take 750 mg 0 750 mg tablet by mouth 2 (two) times daily. 05/06/2019 Discontinued ketorolac 10 mg tablet Take 20 mg by 0 mouth every 6 (six) hours as needed for Pain (scale 4-6). 05/06/2019 Discontinued omeprazole 40 mg capsule Take 40 mg by 0 mouth 2 (two) times daily. 05/06/2019 Discontinued pantoprazole 40 mg EC Take 1 tablet 30 tablet 0 tabletIndications: Left by mouth 0 lower quadrant abdominal daily. pain documented as of this encounter (statuses as of 05/06/2019) Active Problems Problem Noted Date Endometriosis 05/06/2019 Anxiety 05/06/2019 PTSD (post-traumatic stress disorder) 05/06/2019 Bipolar 1 disorder 05/06/2019 HTN (hypertension) 05/06/2019 Seizure disorder 05/06/2019 Dehydration 04/02/2019 Intractable abdominal pain 03/24/2019 Nausea & vomiting 02/14/2018 Obesity (BMI 30-39.9) 02/14/2018 documented as of this encounter (statuses as of 05/06/2019) Social History Date Tobacco Use Types Packs/Day [...] Signs Reading Time Taken Comments Vital Sign 183/104 05/06/2019 11:15 AM RETAIL ATTENDANT Blood Pressure 91 05/06/2019 11:15 AM RETAIL ATTENDANT Pulse 36.9 C (98.5 F) 05/06/2019 11:15 AM RETAIL ATTENDANT Temperature 23 05/06/2019 11:15 AM RETAIL ATTENDANT Respiratory Rate 99% 05/06/2019 11:15 AM RETAIL ATTENDANT Oxygen Saturation - - Inhaled Oxygen Concentration 78 kg (172 lb) 05/06/2019 6:50 AM RETAIL ATTENDANT Weight 154.9 cm (5' 1") 05/06/2019 6:50 AM RETAIL ATTENDANT Height 32.5 05/06/2019 6:50 AM RETAIL ATTENDANT Body Mass Index documented in this encounter Discharge Summaries * Burton Dye MD - 05/06/2019 1:34 PM RETAIL ATTENDANT CLS Team Discharge Summary Date of Service: 05/06/2019 ADMIT DATE: 05/06/2019 DISCHARGE DATE: 05/06/2019 ATTENDING MD: Burton Dye MD PCP: Yoni Higgins REASON FOR ADMISSION Intractable abdominal pain FINAL DIAGNOSIS: Principal Problem: Intractable abdominal pain (03/24/2019) POA: Yes Active Problems: Obesity (BMI 30-39.9) (02/14/2018) POA: Yes Endometriosis (05/06/2019) POA: Yes Anxiety (05/06/2019) POA: Yes PTSD (post-traumatic stress disorder) (05/06/2019) POA: Yes Bipolar 1 disorder (05/06/2019) POA: Yes HTN (hypertension) (05/06/2019) POA: Yes Seizure disorder (05/06/2019) POA: Yes Resolved Problems: * No resolved hospital problems. * Orders Placed This Encounter CONSULT PAIN SERVICES No orders of the defined types were placed in this encounter. SIGNIFICANT LAB/X-RAYS: Recent Results (from the past 48 hour(s)) Basic Metabolic Panel (NA, K, CL, CO2, GLUCOSE, BUN, CREATININE, CA) Collection Time: 05/06/19 7:41 AM Result Value Ref Range NA 139 135 - 145 mmol/L K 4.1 3.5 - 5.0 mmol/L CL 104 98 - 108 mmol/L CO2 TOTAL 25 23 - 31 mmol/L AGAP 10 2 - 16 BUN 13 7 - 23 mg/dL GLUCOSE 138 (H) 70 - 110 mg/dL CREATININE 0.50 0.50 - 1.04 mg/dL CALCIUM 9.2 8.6 - 10.6 mg/dL eGFR Calculation (Non-) 144.9 mL/min/1.73m2 eGFR Calculation () 175.6 mL/min/1.73m2 Hepatic Function Panel (ALB, T.PRO, BILI T, BU/BC, ALT, AST, ALK PHOS) Collection Time: 05/06/19 7:41 AM Result Value Ref Range TOTAL BILI 0.3 0.1 - 1.1 mg/dL BILI UNCON 0.3 0.1 - 1.1 mg/dL BILI CONJ 0.0 0.0 - 0.3 mg/dL T PROTEIN 7.4 6.3 - 8.2 g/dL ALBUMIN 4.1 3.5 - 5.0 g/dL ALK PHOS 75 34 - 122 U/L ALTv 19 5 - 35 U/L AST(SGOT) 20 13 - 40 U/L Lipase Serum Collection Time: 05/06/19 7:41 AM Result Value Ref Range LIPASE 113 0 - 220 U/L Troponin I Collection Time: 05/06/19 7:41 AM Result Value Ref Range TROPONIN I 0.001 <=0.034 ng/mL CBC WITH DIFFERENTIAL Collection Time: 05/06/19 7:41 AM Result Value Ref Range WBC 11.68 (H) 4.30 - 11.10 10*3/L RBC 3.77 (L) 3.93 - 5.25 10*6/L HGB 9.9 (L) 11.6 - 15.0 g/dL HCT 31.5 (L) 35.7 - 45.2 % MCV 83.6 80.6 - 95.5 fL MCH 26.3 25.9 - 32.8 pg MCHC 31.4 (L) 31.6 - 35.1 g/dL RDW-SD 60.1 (H) 39.0 - 49.9 fL RDW-CV 19.7 (H) 12.0 - 15.5 % PLT 413 (H) 166 - 358 10*3/L MPV 10.4 9.5 - 12.9 fL NRBC/100 WBC 0.0 0.0 - 10.0 /100 WBCs NRBC x10^3 <0.01 10*3/L GRAN MAT (NEUT) % 84.2 % IMM GRAN % 0.50 % LYMPH % 11.0 % MONO % 3.3 % EOS % 0.7 % BASO % 0.3 % GRAN MAT x10^3(ANC) 9.84 (H) 1.88 - 7.09 10*3/uL IMM GRAN x10^3 0.06 0.00 - 0.06 10*3/uL LYMPH x10^3 1.28 (L) 1.32 - 3.29 10*3/uL MONO x10^3 0.38 0.33 - 0.92 10*3/uL EOS x10^3 0.08 0.03 - 0.39 10*3/uL BASO x10^3 0.04 0.01 - 0.07 10*3/uL Urinalysis Collection Time: 05/06/19 8:29 AM Result Value Ref Range APPEARANCE Clear Clear COLOR Straw (A) Yellow PH 7.0 4.8 - 8.0 SP GRAVITY 1.015 1.003 - 1.030 GLU U QUAL 50 mg/dL (A) Normal BLOOD Negative Negative KETONES Negative Negative PROTEIN Negative Negative UROBILIN Normal Normal BILIRUBIN Negative Negative NITRITE Negative Negative LEUK MARITZA Negative Negative RBC/HPF 2 0 - 3 HPF WBC/HPF 1 0 - 5 HPF BACTERIA Few (A) Negative SQ EPITH 6 (H) <=2 HPF Chest 1 View Result Date: 05/06/2019 Impression: 1. No acute cardiopulmonary process is identified. RL: 2831 AFC: [address] Abdomen Pelvis W Contrast Result Date: 05/06/[address] evidence for acute abnormality within the abdomen and pelvis is visuali zed. Specifically, no evidence for acute inflammatory process is identified. 2. Stool is present throughout the colon suggesting constipation. 3. Hysterectomy a nd cholecystectomy have been performed. RL: 2831 ITAL COURSE: She left AMA and did not want to wait for pain Mx consult. ITEMS FOR FOLLOW UP PROVIDER: (including pending labs/cultures/studies, anticipa mookie problems, etc.) FUNCTIONAL STATUS: fully ambulatory DISCHARGE CONDITION: good COGNITIVE STATUS: cognitively intact DISCHARGE INSTRUCTIONS: No discharge procedures on file. DISCHARGE MEDICATIONS: There are no discharge medications for this patient. WOUND CARE: CODE STATUS: full code OXYGEN (is patient being discharged on oxygen): no PATIENT EDUCATION PROVIDED: DISCHARGE: AMA FOLLOW-UP APPOINTMENT: PLAN FOR READMISSION: No Please call or text [phone] to contact Burton Dye MD with any question s. - [place] ATTENDANT documented in this encounter Plan of Treatment Health Maintenance Due Date [...] Comments Procedure Name Priority Date/Time Associated Diagnosis XR CHEST 1 VW STAT 05/06/2019 Left lower quadrant 9:01 AM RETAIL ATTENDANT abdominal pain CT ABDOMEN PELVIS W STAT 05/06/2019 Left lower quadrant CONTRAST 8:51 AM RETAIL ATTENDANT abdominal pain URINALYSIS STAT 05/06/2019 Left lower quadrant 8:29 AM RETAIL ATTENDANT abdominal pain CBC WITH DIFFERENTIAL STAT 05/06/2019 Left lower quadrant 7:41 AM RETAIL ATTENDANT abdominal pain CBC WITH DIFFERENTIAL Routine 05/06/2019 Left lower quadrant 7:41 AM RETAIL ATTENDANT abdominal pain BASIC METABOLIC PANEL STAT 05/06/2019 Left lower quadrant (NA, K, CL, CO2, GLUCOSE, 7:41 AM RETAIL ATTENDANT abdominal pain BUN, CREATININE, CA) HEPATIC FUNCTION PANEL STAT 05/06/2019 Left lower quadrant ([address]) (ALB,T.PRO,BILI 7:41 AM RETAIL ATTENDANT abdominal pain T,BU/BC,ALT,AST,ALK PHOS) TROPONIN I STAT 05/06/2019 Left lower quadrant 7:41 AM RETAIL ATTENDANT abdominal pain LIPASE STAT 05/06/2019 Left lower quadrant 7:41 AM RETAIL ATTENDANT abdominal pain EKG-12 LEAD STAT 05/06/2019 7:28 AM RETAIL ATTENDANT documented in this encounter Results * Chest 1 View (05/06/2019 9:01 AM RETAIL ATTENDANT) Specimen Impressions Performed At Impression: PACS/VR/DOSE 1. No acute cardiopulmonary process is identified. RL: 2831 AFC: [id number] Narrative Performed At Study: Single view chest. PACS/VR/DOSE Ordering Physician: ELAN WARE Date: 05/06/2019 7:30 AM History:vomiting COMPARISON: None. Findings: Single frontal view chest demonstrates a normal heart size. The lungs are clear without infiltrate, pleural effusion or pneumothorax. No acute osseous abnormality is identified. Procedure Note [facility], Radiant Results Inft User - 05/06/2019 10:12 AM RETAIL ATTENDANT Study: Single view chest. Ordering Physician: ELAN WARE Date: 05/06/2019 7:30 AM History:vomiting COMPARISON: None. Findings: Single frontal view chest demonstrates a normal heart size. The lungs are clear without infiltrate, pleural effusion or pneumothorax. No acute osseous abnormality is identified. IMPRESSION Impression: 1. No acute cardiopulmonary process is identified. RL: 2831 AFC: [id number] Performing Organization Address City/State/Zipcode Phone Number PACS/VR/DOSE * CT ABDOMEN PELVIS W CONTRAST (05/06/2019 8:51 AM RETAIL ATTENDANT) Specimen Impressions Performed At 1. No CT evidence for acute abnormality within the abdomen and pelvis is PACS/VR/DOSE visualized. Specifically, no evidence for acute inflammatory process is identified. 2. Stool is present throughout the colon suggesting constipation. 3. Hysterectomy and cholecystectomy have been performed. RL: 2831 Narrative Performed At ORDERING PHYSICIAN: ELAN WARE PACS/VR/DOSE ABDOMEN AND PELVIS CT WITH INTRAVENOUS CONTRAST. DATE: 05/06/2019 CLINICAL INDICATIONS: Acute, generalized abdominal pain. TECHNIQUE: Axial computed tomographic images of the abdomen and pelvis were performed after administration of 100 cc of Omnipaque [address] scan was performed according to ALARA (As Low as Reasonably Achievable). COMPARISON: None. Abdomen findings: The lung bases are clear. The cardiac apex is unremarkable. Cholecystectomy has been performed. Mild hepatomegaly is present. The spleen, pancreas, adrenal glands and kidneys demonstrate no abnormality. The stomach, small bowel and colon demonstrate no evidence for obstruction or inflammation. The appendix is not definitely visualized on this study. No secondary findings of acute appendicitis are present. No adenopathy or free fluid are identified in the abdomen. No acute osseous abnormality is visualized. Pelvis findings: The small bowel and colon are normal caliber. Stool is present throughout the colon. The urinary bladder demonstrates no abnormality. Hysterectomy has been performed. No adenopathy or free fluid are identified in the pelvis. No acute osseous abnormality is visualized. Procedure Note [facility], Radiant Results Inft User - 05/06/2019 10:11 AM RETAIL ATTENDANT ORDERING PHYSICIAN: ELAN WARE ABDOMEN AND PELVIS CT WITH INTRAVENOUS CONTRAST. DATE: 05/06/2019 CLINICAL INDICATIONS: Acute, generalized abdominal pain. TECHNIQUE: Axial computed tomographic images of the abdomen and pelvis were performed after administration of 100 cc of Omnipaque [address] scan was performed according to ALARA (As Low as Reasonably Achievable). COMPARISON: None. Abdomen findings: The lung bases are clear. The cardiac apex is unremarkable. Cholecystectomy has been performed. Mild hepatomegaly is present. The spleen, pancreas, adrenal glands and kidneys demonstrate no abnormality. The stomach, small bowel and colon demonstrate no evidence for obstruction or inflammation. The appendix is not definitely visualized on this study. No secondary findings of acute appendicitis are present. No adenopathy or free fluid are identified in the abdomen. No acute osseous abnormality is visualized. Pelvis findings: The small bowel and colon are normal caliber. Stool is present throughout the colon. The urinary bladder demonstrates no abnormality. Hysterectomy has been performed. No adenopathy or free fluid are identified in the pelvis. No acute osseous abnormality is visualized. IMPRESSION 1. No CT evidence for acute abnormality within the abdomen and pelvis is visualized. Specifically, no evidence for acute inflammatory process is identified. 2. Stool is present throughout the colon suggesting constipation. 3. Hysterectomy and cholecystectomy have been performed. RL: 2839 Performing Organization Address City/State/Zipcode Phone Number PACS/VR/DOSE * Urinalysis (05/06/2019 8:29 AM RETAIL ATTENDANT) APPEARANCE Clear Clear [facility] COLOR Straw (A) Yellow [facility] PH 7.0 4.8 - 8.0 [facility] SP GRAVITY 1.015 1.003 - 1.030 [facility] GLU U QUAL 50 mg/dL (A) Normal [facility] BLOOD Negative Negative [facility] KETONES Negative Negative [facility] PROTEIN Negative Negative [facility] UROBILIN Normal Normal [facility] BILIRUBIN Negative Negative [facility] NITRITE Negative Negative [facility] LEUK MARITZA Negative Negative [facility] RBC/HPF 2 0 - 3 HPF [facility] WBC/HPF 1 0 - 5 HPF [facility] BACTERIA Few (A) Negative [facility] SQ EPITH 6 (H) <=2 HPF [facility] Specimen Urine - URINE, CLEAN CATCH Performing Organization Address City/State/Zipcode Phone Number [facility] CLIA: [id number], [address] [place] [address] [facility] * CBC WITH DIFFERENTIAL (05/06/2019 7:41 AM RETAIL ATTENDANT) WBC 11.68 (H) 4.30 - 11.10 [facility] 10*3/L [facility] RBC 3.77 (L) 3.93 - 5.25 10*6/L [facility] HGB 9.9 (L) 11.6 - 15.0 g/dL [facility] HCT 31.5 (L) 35.7 - 45.2 % [facility] MCV 83.6 80.6 - 95.5 fL [facility] MCH 26.3 25.9 - 32.8 pg [facility] MCHC 31.4 (L) 31.6 - 35.1 g/dL [facility] RDW-SD 60.1 (H) 39.0 - 49.9 fL [facility] RDW-CV 19.7 (H) 12.0 - 15.5 % [facility] PLT 413 (H) 166 - 358 10*3/L [facility] MPV 10.4 9.5 - 12.9 fL [facility] NRBC/100 WBC 0.0 0.0 - 10.0 /100 WBCs [facility] NRBC x10^3 <0.01 10*3/L [facility] GRAN MAT (NEUT) 84.2 % [facility] % [facility] IMM GRAN % 0.50 % [facility] LYMPH % 11.0 % [facility] MONO % 3.3 % [facility] EOS % 0.7 % [facility] BASO % 0.3 % [facility] GRAN MAT 9.84 (H) 1.88 - 7.09 10*3/uL [facility] x10^3(ANC) [facility] IMM GRAN x10^3 0.06 0.00 - 0.06 10*3/uL [facility] LYMPH x10^3 1.28 (L) 1.32 - 3.29 10*3/uL [facility] MONO x10^3 0.38 0.33 - 0.92 10*3/uL [facility] EOS x10^3 0.08 0.03 - 0.39 10*3/uL [facility] BASO x10^3 0.04 0.01 - 0.07 10*3/uL [facility] Specimen Blood - VENOUS Performing Organization Address City/State/Zipcode Phone Number [facility] CLIA: [id number], [address] [place] [address] [facility] * Troponin I (05/06/2019 7:41 AM RETAIL ATTENDANT) Pathologist [facility] Department TROPONIN I 0.001 <=0.034 ng/mL [facility] Specimen Blood - VENOUS Narrative Performed At Equal or Less than 0.034 ng/ml---Normal [facility] Note: Cardiac troponin begins to rise 3-4 hours after the onset of ischemia. [facility] Repeat in 4-6 hours if the sample was drawn within 3-4 hours of the onset of the BARRY symptom and found normal. Between 0.035 and [...] patient's use of biotin. Performing Organization Address City/State/Zipcode Phone Number [facility] CLIA: [id number], [address] [place] [address] [facility] * Lipase Serum (05/06/2019 7:41 AM RETAIL ATTENDANT) Pathologist [facility] Emergency Department LIPASE 113 0 - 220 U/L [facility] Specimen Blood - VENOUS Performing Organization Address City/State/Zipcode Phone Number [facility] CLIA: [id number], [address] [place], [place] [id number] [facility] * Hepatic Function Panel (ALB, T.PRO, BILI T, BU/BC, ALT, AST, ALK PHOS) (05/06/2019 7:41 AM RETAIL ATTENDANT) Pathologist [facility] Emergency Department TOTAL BILI 0.3 0.1 - 1.1 mg/dL [facility] BILI UNCON 0.3 0.1 - 1.1 mg/dL [facility] BILI CONJ 0.0 0.0 - 0.3 mg/dL [facility] T PROTEIN 7.4 6.3 - 8.2 g/dL [facility] ALBUMIN 4.1 3.5 - 5.0 g/dL [facility] ALK PHOS 75 34 - 122 U/L [facility] ALTv 19 5 - 35 U/L [facility] AST(SGOT) 20 13 - 40 U/L [facility] Specimen Blood - VENOUS Performing Organization Address City/State/Zipcode Phone Number [facility] CLIA: [id number], [address] [place], [place] [id number] [facility] * Basic Metabolic Panel (NA, K, CL, CO2, GLUCOSE, BUN, CREATININE, CA) (05/06/2019 7:41 AM RETAIL ATTENDANT) NA 139 135 - 145 mmol/L [facility] K 4.1 3.5 - 5.0 mmol/L [facility] CL 104 98 - 108 mmol/L [facility] CO2 TOTAL 25 23 - 31 mmol/L [facility] AGAP 10 2 - 16 [facility] BUN 13 7 - 23 mg/dL [facility] GLUCOSE 138 (H) 70 - 110 mg/dL [facility] CREATININE 0.50 0.50 - 1.04 mg/dL [facility] CALCIUM 9.2 8.6 - 10.6 mg/dL [facility] eGFR 144.9 mL/min/1.73m2 [facility] Calculation [facility] (Non-[facility]) eGFR 175.6 mL/min/1.73m2 [facility] Calculation [facility] ([facility]) Specimen Blood - VENOUS Narrative Performed At Association of Glomerular Filtration Rate (GFR) and Staging of Kidney Disease* [facility] + + + + [facility] | GFR (mL/min/1.73 m2) | With Kidney [...] tests). Performing Organization Address City/State/Zipcode Phone Number [facility] CLIA: [id number], [address] [place] [address] [facility] documented in this encounter Visit Diagnoses Diagnosis Left lower quadrant abdominal pain - Primary Endometriosis Endometriosis, site unspecified Intractable abdominal pain Abdominal pain, unspecified site Obesity (BMI 30-39.9) Obesity, unspecified Anxiety Anxiety state, unspecified PTSD (post-traumatic stress disorder) Posttraumatic stress disorder Bipolar 1 disorder Bipolar I disorder, most recent episode (or current) unspecified HTN (hypertension) Unspecified essential hypertension Seizure disorder Unspecified epilepsy without mention of intractable epilepsy documented in this encounter Administered Medications Action Date Dose Rate Site Medication Order MAR Action 05/06/2019 9:30 AM RETAIL ATTENDANT 20 mg Right Dorsogluteal-IM dicyclomine (BENTYL) injection 20 mg Given 20 mg, Intramuscular, ONCE, 1 dose, 05/06/19 at 0915, ALYX 05/06/2019 9:20 AM RETAIL ATTENDANT 10 mg Right Dorsogluteal-IM haloperidol lactate (HALDOL) injection Given 10 mg 10 mg, Intramuscular, ONCE, 1 dose, 05/06/19 at 0915, STAT 05/06/2019 8:45 AM RETAIL ATTENDANT 100 mL iohexol (OMNIPAQUE 350 BULK-100 mL) Given injection 100 mL 100 mL, Intravenous, ONCE, 1 dose, 05/06/19 at 0900, Routine 05/06/2019 9:20 AM RETAIL ATTENDANT 15 mg ketorolac (TORADOL) injection 15 mg Given 15 mg, Slow IV Push, ONCE, 1 dose, 05/06/19 at 0915, ALYX, service member approving Restricted medication: EMERGENCY ROOM, 05/06/2019 8:13 AM RETAIL ATTENDANT 2 mg LORazepam (ATIVAN) injection 2 mg Given 2 mg, Slow IV Push, ONCE, 1 dose, 05/06/19 at 0815, STAT 05/06/2019 7:42 AM RETAIL ATTENDANT 4 mg morpHINE injection 4 mg Given 4 mg, Slow IV Push, ONCE, 1 dose, 05/06/19 at 0730, ALYX 05/06/2019 7:44 AM RETAIL ATTENDANT 1,000 mL 999 mL/hr NaCl 0.9% (NS) bolus infusion 1,000 mL New Bag at 999 mL/hr, 1,000 mL, IV Infusion, ONCE, 1 dose, 05/06/19 at 0730, ALYX 05/06/2019 7:42 AM RETAIL ATTENDANT 4 mg ondansetron (ZOFRAN (PF)) injection 4 mg Given 4 mg, Slow IV Push, Administer over 15 Minutes, ONCE, 1 dose, 05/06/19 at 0730, STAT 05/06/2019 10:59 AM RETAIL ATTENDANT 4 mg ondansetron (ZOFRAN-ODT) disintegrating Given tablet 4 mg 4 mg, Oral, ONCE, 1 dose, 05/06/19 at 1100, ALYX documented in this encounter Insurance Type Payer Benefit Subscriber ID Effective Phone Address Plan / Dates Group PPO/POS [employer] [place] BCBS OF [id number] 2017-[id number] [phone] [address] [facility] [address] [place] [address] documented as of this encounter
[2019-05-10] MEDS ORDERED: SODIUM CHLORIDE 0.9% 1000ML 1,000 ML IV SCH (18:15)
[2019-05-10] MEDS ORDERED: KETOROLAC TROMETHAMINE 30 MG/ML VIAL IV ONE (18:15)
[2019-05-10] MEDS ORDERED: DIPHENHYDRAMINE HCL INJ 50 MG/ML VIAL IV ONE (18:15)
[2019-05-10] MEDS ORDERED: HALOPERIDOL LACTATE 5 MG/ML VIAL IV ONE (18:15)
[2019-05-10] MEDS ORDERED: MORPHINE SULFATE 2 MG/ML SYR 1ML IV STA (19:41)
[2019-05-10] MEDS ORDERED: MORPHINE SULFATE INJ 4 MG/ML INJ 1ML ONE (20:01)
--- NOTE | 2019-05-10 20:17 | NUR ---
PT STATES PAIN BETTER. UP TO RESTROOM WITH STEADY GAIT.
--- NOTE | 2019-05-10 20:18 | NUR ---
PT HAS NEW MR# DUE TO REGISTRATION PUTTING IN WRONG SS#. THIS MR# WILL BE MERGED WITH
[2019-05-11 01:15] VITALS: BP 167/99
== END 2019-05-10 20:40 | disposition home or self-care (01) ==
LOC: FSED 16:41 → MERGE 16:41 → FSED 20:40
DX: N80.3 Endometriosis of pelvic peritoneum (principal); R10.84 Generalized abdominal pain; I10 Essential (primary) hypertension
CPT/HCPCS: 96374; 96375; J1200; J1630; J1885; J2270; J7030

== ENCOUNTER 2019-08-29 19:53 | Emergency (ER) | payer BC ==
[~2019-08-29] VITALS: Ht 154.9 cm; Wt 77.6 kg
[2019-08-29] MEDS ORDERED: ONDANSETRON HCL INJ 2MG/ML 2ML 2 MG/ML VIAL IV STA (20:21)
[2019-08-29] MEDS ORDERED: MORPHINE SULFATE 2 MG/ML SYR 1ML IV STA ×3 (20:21→23:05)
--- NOTE | 2019-08-29 21:21 | NUR ---
PT CRYING AND STATING PAIN IS 10/10, PT STATED SHE TOOK TORADOL AND TRAMADOL AND ZOFRAN AT HOME AT 1800 AND GOT NO RELIEF, DR VERA NOTIFIED , PT GIVEN 2MG OF MORPHINE AND 4MG OF ZOFRAN. PT TOLERATED WELL.
[2019-08-29] MEDS ORDERED: MORPHINE SULFATE INJ 4 MG/ML INJ 1ML ONE ×2 (21:24→22:14)
[2019-08-29] MEDS ORDERED: LIDOCAINE VISC 2% SOLN 15 ML UDC ONE (21:40)
[2019-08-29] MEDS ORDERED: BELLADONNA ALK/PHENOBARBITAL 5 ML UDC ONE (21:40)
[2019-08-29] MEDS ORDERED: MAGNESIUM/ALUMINUM/SIMETHICONE 30 ML UDC ONE (21:40)
--- NOTE | 2019-08-29 21:50 | NUR ---
PT STATED THE PAIN MEDICATION IS NOT HELPING AND SHE NEEDS SOMETHING FOR HER HEARTBURN FROM VOMITING, PT GIVEN A GI COCKTAIL, PT DRANK A SIP AND STATED SHE IS NOT GOING TO DRINK IT BECAUSE IT TAST GROSS, PT IS ON HER PHONE AND WATCHING TELEVISION, PT STATED SHE WANTS MORE PAIN MEDICATION. I INFORMED PT IF SHE DRINKS THE MEDICATIONS I GAVE HER IT WILL HELP WITH THE PAIN, PT DRINKING GI COCKTAIL.
[2019-08-29] MEDS ORDERED: DONNATAL/LIDOCAINE/MAALOX 30 ML SUSP PO ONE (22:00)
[2019-08-29] MEDS ORDERED: LORAZEPAM INJ 2 MG/ML VIAL IV ONE (22:00)
--- NOTE | 2019-08-29 22:00 | NUR ---
PT CRYING AND SCREAMING IN PAIN AND STATED THAT SHE NEEDS SOMETHING ELSE FOR PAIN, DR VERA NOTIFIED, PT GIVEN 2MG OF MORPHINE, PT REFUSED ATIVAN AND STATED SHE ONLY WANTS PAIN MEDICATION.
[2019-08-29] MEDS ORDERED: LORAZEPAM INJ 2 MG/ML VIAL ONE (22:14)
--- NOTE | 2019-08-29 22:45 | NUR ---
PT RINGING CALL CARROLL CONSTANTLY AND SCREAMING AND CRYING, DR VERA NOTIFED, PT GIVEN 20MG OF BENTYL, PT STATED SHE NEEDS MORE PAIN MEDICATION. I INFORMED PT THAT SHE NEEDED TO GIVE THE MEDICINE TIME TO WORK.
[2019-08-29] MEDS ORDERED: DICYCLOMINE HCL 20 MG/2 ML VIAL IM ONE ×2 (23:00→23:07)
[2019-08-29] MEDS ORDERED: PROMETHAZINE 12.5MG/ NACL 0.9% 12.5 MG/50 ML BAG IV ONE (23:15)
--- NOTE | 2019-08-29 23:30 | NUR ---
PT RINGING CALL CARROLL AND SCREAMING AND CRYING STATING SHE NEEDS PAIN MEDICATIONS, DR VERA NOTIFIED, PT GIVEN 2MG OF MORPHINE AND 12.5MG OF PHENERGA, PT IS YELLING AND STATING THAT SHE NEEDS TO HAVE HER SURGERY, PT STATED SURGERY WAS GOING TO BE AT [facility] BUT THEY DONT HAVE ANY BEDS FOR HER! DR VERA AT BEDSIDE EXPLAINING TO PT THAT HER CT IS CLEAR AND SHE NEEDS TO FOLLOW UP WITH HER DOCTOR,
--- NOTE | 2019-08-29 23:52 | Diagnostic Imaging Report ---
EXAM: CT Abdomen and Pelvis WITHOUT contrast INDICATION: ^ABDOMINAL PAIN ^[id number] ^[id number] COMPARISON: None. TECHNIQUE: Abdomen and pelvis were scanned utilizing a multidetector helical scanner from the lung base to the pubic symphysis without administration of IV contrast. Absence of intravenous contrast decreases sensitivity for detection of focal lesions and vascular pathology. Coronal and sagittal reformations were obtained. Routine protocol was performed. IV CONTRAST: None ORAL CONTRAST: None COMPLICATIONS: None RADIATION DOSE: Total DLP: 934 mGy*cm Estimated effective dose: (DLP x 0.015 x size factor) mSv CTDIvol has been reviewed. It is below the limits set by the Radiation Protocol Committee (RPC). Dose modulation, iterative reconstruction, and/or weight based adjustment of the mA/kV was utilized to reduce the radiation dose to as low as reasonably achievable. FINDINGS: LINES and TUBES: None. LOWER THORAX: Unremarkable HEPATOBILIARY: No focal hepatic lesions. No biliary ductal dilation. GALLBLADDER: No radio-opaque stones or sludge. No wall thickening. SPLEEN: No splenomegaly. PANCREAS: No focal masses or ductal dilatation. ADRENALS: No adrenal nodules KIDNEYS/URETERS: No hydronephrosis. No cystic or solid mass lesions. No stones. GI TRACT: No abnormal distention, wall thickening, or evidence of bowel obstruction. Appendix is surgically absent. PELVIC ORGANS/BLADDER: The uterus is surgically absent. The urinary bladder is unremarkable. LYMPH NODES: No lymphadenopathy. VESSELS: Unremarkable. PERITONEUM / RETROPERITONEUM: No free air or fluid. BONES: Unremarkable. SOFT TISSUES: Tiny umbilical hernia. IMPRESSION: No acute abdominal or pelvic abnormality. Signed by: Sg Myers MD on 08/29/2019 11:49 PM
--- NOTE | 2019-08-29 23:55 | NUR ---
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 DR VERA INFOMRED HER THAT THE ATIVAN WOULD HELP CALM HER DOWN SOME. PT AGREED TO TRYING THAT.
[2019-08-30] MEDS ORDERED: PROMETHAZINE HCL (IM) 25 MG/ML VIAL ONE (00:02)
[2019-08-30] MEDS ORDERED: MORPHINE SULFATE INJ 4 MG/ML INJ 1ML ONE (00:02)
--- NOTE | 2019-08-30 00:02 | Emergency Department Note ---
History of Present Illnes History of Present Illness Chief Complaint: Abdominal Complaints History of Present Illness This is a 29 year old female . Chief Complaint Comment PT COMPLAINS OF LLQ AB PAIN WITH NAUSEA, VOMITING AND DIARRHEA THAT STARTED TODAY AT 1430. PT HAS A HISTORY OF ENDOMETRIOSIS AND WAS SCHEDULED FOR SURGERY ON THE BUT HAD TO RESCHEDULE DUE TO COVID. NO DISTRESS NOTED IN TRIAGE. Historian: Patient Arrival Mode: Car Location: LLQ ABDOMEN Quality: SHARP Radiation: Denies non-radiation, Denies back, Denies neck, Denies extremity, Denies abdomen, Denies periumbilical, Denies flank, Denies proximal, Denies distal, Denies other Severity: moderate Onset quality: gradual Duration (how long): day(s) (2) Timing of current episode: constant Progression: waxing and waning Chronicity: new Context: Denies recent illness, Denies recent surgery, Denies recent immobilization, Denies recent travel, Denies trauma/injury, Denies new medications, Denies hx of DVT/PE, Denies non-compliance w/ medications, Denies other Relieving factors: none Exacerbating factors: none Associated symptoms: Reports denies other symptoms Treatments prior to arrival: none Past Medical/Family History Physician Review I have reviewed the patient's past medical and family history. Any updates have been documented here. 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 Social History Smoking Cessation: Never Smoker Alcohol Use: None Any Illegal Drug Use: No TB Exposure/Symptoms: No Physically hurt or threatened: No Other Last Tetanus: UTD Any Pre-Existing Lines (PICC,: No Is patient up to date on immun: No Last Flu: NO Last Pneumovax: NO Review of Systems Review of Systems Constitutional: Reports no symptoms EENTM: Reports no symptoms Cardiovascular: Reports no symptoms Respiratory: Reports no symptoms Gastrointestinal: Reports no symptoms Genitourinary: Reports no symptoms Musculoskeletal: Reports as per HPI Integumentary: Reports no symptoms Neurological: Reports no symptoms Psychological: Reports no symptoms Endocrine: Reports no symptoms Hematological/Lymphatic: Reports no symptoms Physical Exam Related Data Allergies: Coded Allergies: codeine (Verified Allergy, Unknown, rash/swelling, 02/17/19) Triage Vital Signs Vital Signs Date Time Temp Pulse Resp B/P (MAP) Pulse Ox O2 Delivery O2 Flow Rate FiO2 08/29/19 20:10 99.2 123 24 182/97 100 Vital signs reviewed: Yes Physical Exam CONSTITUTIONAL Constitutional: Present well-developed, Present well-nourished HENT HENT: Present normocephalic, Present atraumatic, Present oropharynx clear/moist, Present nose normal HENT L/R: Present left ext ear normal, Present right ext ear normal EYES Eyes: Reports PERRL, Reports conjunctivae normal NECK Neck: Present ROM normal PULMONARY Pulmonary: Present effort normal, Present breath sounds normal CARDIOVASCULAR Cardiovascular: Present regular rhythm, Present heart sounds normal, Present capillary refill normal, Present normal rate GASTROINTESTINAL Abdominal: Present soft, Present bowel sounds normal, Present tender (LLQ) GENITOURINARY Genitourinary: Present exam deferred SKIN Skin: Present warm, Present dry MUSCULOSKELETAL Musculoskeletal: Present ROM normal NEUROLOGICAL Neurological: Present alert, Present oriented x 3, Present no gross motor or sensory deficits PSYCHOLOGICAL Psychological: Present mood/affect normal, Present judgement normal Results Laboratory Lab results reviewed: Yes Imaging Imaging results reviewed: Yes Assessment & Plan Medical Decision Making MDM OBSTRUCTION PERFORATION Reassessment Reassessment time: 00:02 Reassessment SAME Assessment & Plan Final Impression: (1) Abdominal pain Depart Disposition: HOME, SELF-CARE Last Vital Signs Date Time Temp Pulse Resp B/P (MAP) Pulse Ox O2 Delivery O2 Flow Rate FiO2 08/29/19 22:23 101 20 172/99 99 08/29/19 20:10 99.2 Home Meds Active Scripts Promethazine Hcl (PHENERGAN) 25 Mg/1 Ml Ampul, 12.5 MG PO Q8HR PRN for nausea/vomiting, #20 Prov:CRISTÓBAL ALVAREZ MD 01/06/19 Reported Medications Escitalopram Oxalate (ESCITALOPRAM OXALATE) 20 Mg Tablet 01/05/19 Levetiracetam (LEVETIRACETAM) 1,000 Mg Tablet 01/05/19 Estradiol (Estradiol) 1 Each Patch.tdsw 01/05/19 Promethazine Hcl* (PHENERGAN SUPP*) 25 Mg Supp 01/05/19 Norethindrone Acetate (NORETHINDRONE ACETATE) 5 Mg Tablet 01/05/19 Metoprolol Tartrate (LOPRESSOR) 25 Mg Tab 01/05/19 Ondansetron Hcl (ONDANSETRON HCL) 4 Mg Tablet 01/05/19 Sertraline Hcl (SERTRALINE HCL) 100 Mg Tablet 01/05/19 Lamotrigine (LAMOTRIGINE) 100 Mg Tablet, 25 MG PO DAILY 01/05/19 Hydroxyzine Hcl (HYDROXYZINE HCL) 50 Mg Tablet 01/05/19 Gabapentin (GABAPENTIN) 100 Mg Capsule 01/05/19 Alprazolam (ALPRAZOLAM) 2 Mg Tablet 01/05/19 Medications in the ED Morphine Sulfate 2 mg NOW STAT IV Last administered on 08/29/19at 21:21; Admin Dose 2 MG; Start 08/29/19 at 20:21; Stop 08/29/19 at 22:02; Status DC Ondansetron HCl 4 mg NOW STAT IV Last administered on 08/29/19at 21:21; Admin Dose 4 MG; Start 08/29/19 at 20:21; Stop 08/29/19 at 22:02; Status DC Morphine Sulfate 4 mg STK-MED ONCE .ROUTE ; Start 08/29/19 at 21:24; Stop 08/29/19 at 21:19; Status DC Lidocaine HCl 15 ml STK-MED ONCE .ROUTE ; Start 08/29/19 at 21:40; Stop 08/29/19 at 21:37; Status DC Belladonna Alkaloids/ Phenobarbital 5 ml STK-MED ONCE .ROUTE ; Start 08/29/19 at 21:40; Stop 08/29/19 at 21:37; Status DC Magnesium Aluminum Silicate 30 ml STK-MED ONCE .ROUTE ; Start 08/29/19 at 21:40; Stop 08/29/19 at 21:37; Status DC Belladonna Alkaloids/ Phenobarbital 5 ml ONCE ONCE PO Last administered on 08/29/19at 22:06; Admin Dose 5 ML; Start 08/29/19 at 22:00; Stop 08/29/19 at 22:02; Status DC Morphine Sulfate 2 mg NOW STAT IV Last administered on 08/29/19at 22:10; Admin Dose 2 MG; Start 08/29/19 at 22:00; Stop 08/29/19 at 22:01; Status UNV Lorazepam 1 mg ONCE ONCE IV ; Start 08/29/19 at 22:00; Stop 08/29/19 at 22:01; Status UNV Morphine Sulfate 4 mg STK-MED ONCE .ROUTE ; Start 08/29/19 at 22:14; Stop 08/29/19 at 22:08; Status DC Dicyclomine HCl 20 mg ONCE ONCE IM Last administered on 08/29/19at 23:04; Admin Dose 20 MG; Start 08/29/19 at 23:00; Stop 08/29/19 at 23:01; Status UNV Morphine Sulfate 2 mg NOW STAT IV Last administered on 08/29/19at 23:58; Admin Dose 2 MG; Start 08/29/19 at 23:05; Stop 08/29/19 at 23:06; Status UNV Promethazine HCl 25 mg STK-MED ONCE .ROUTE ; Start 08/30/19 at 00:02; Stop 08/29/19 at 23:58; Status DC Morphine Sulfate 4 mg STK-MED ONCE .ROUTE ; Start 08/30/19 at 00:02; Stop 08/29/19 at 23:58; Status DC SHAHID VERA MD Aug 30, 2019 00:02
--- NOTE | 2019-08-30 00:15 | NUR ---
PT STATED SHE NEEDS MORE PAIN MEDICATION AND SHE DOES NOT WANT TO BE DISCHARGED, DR VERA AT BEDSIDE AGAIN, PT SCREAMING AND CRYING
[2019-08-30] MEDS ORDERED: LORAZEPAM INJ 2 MG/ML VIAL IV ONE (00:30)
[2019-08-30 00:31] VITALS: BP 165/80
[2019-08-30] MEDS ORDERED: LORAZEPAM INJ 2 MG/ML VIAL ONE (00:32)
--- NOTE | 2019-08-30 00:40 | NUR ---
PT CRYING AND STATING SHE NEEDS SOMETHING ELSE FOR PAIN, I INFORMED PT THAT WE HAVE GIVEN HER MUCH PAIN MEDICATIONS WE COULD, PT STATED SHE WOULD JUST GO SOMEWHERE ELSE AND GET SOME PAIN MEDS, PT REFUSED RX STATED SHE HAS THEM AT HOME.
== END 2019-08-30 00:37 | disposition home or self-care (01) ==
LOC: FSED 19:53
DX: R10.32 Left lower quadrant pain (principal); R11.2 Nausea with vomiting, unspecified; R19.7 Diarrhea, unspecified; N80.9 Endometriosis, unspecified; F43.10 Post-traumatic stress disorder, unspecified; G40.909 Epilepsy, unspecified, not intractable, without status epilepticus
CPT/HCPCS: 74176; 80053; 81003; 81025; 85025; 99284; J0500; J2060 ×2; J2270 ×2; J2405; J2550

== ENCOUNTER 2019-09-23 16:14 | Emergency (ER) | payer BC ==
[~2019-09-23] VITALS: Ht 154.9 cm; Wt 77.6 kg
[2019-09-23] MEDS ORDERED: SODIUM CHLORIDE 0.9% 1000ML 1,000 ML IV SCH ×2 (16:45→17:45)
--- NOTE | 2019-09-23 16:56 | Emergency Department Note ---
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 Onset (how long ago): day(s) Location: abdominal pain Quality: pain Radiation: Reports non-radiation Severity: moderate Onset quality: gradual Duration (how long): day(s) Timing of current episode: constant Progression: unchanged Chronicity: chronic Context: Denies recent illness, Denies recent surgery, Denies recent immobilization, Denies recent travel, Denies trauma/injury, Denies new medications, Denies hx of DVT/PE, Denies non-compliance w/ medications, Denies other Relieving factors: none Exacerbating factors: none Associated symptoms: Denies denies other symptoms, Denies confusion, Denies chest pain, Denies cough, Denies diaphoresis, Denies fever/chills, Denies headaches, Denies loss of appetite, Denies malaise, Denies nausea/vomiting, Denies rash, Denies seizure, Denies shortness of breath, Denies syncope, Denies weakness, Denies other Treatments prior to arrival: none (Pt has hx of marina, appy, JERED) Risk factors: Pt also had a sezire this morning has hx of sz fell hit head no loc Past Medical/Family History Physician Review I have reviewed the patient's past medical and family history. Any updates have been documented here. 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 Social History Smoking Cessation: Former smoker Alcohol Use: None Any Illegal Drug Use: No Other Last Tetanus: UTD Review of Systems Review of Systems Constitutional: Denies no symptoms, Denies as per HPI, Denies chills, Denies diaphoresis, Denies fever, Denies malaise, Denies weakness, Denies other EENTM: Denies no symptoms, Denies as per HPI, Denies eye pain, Denies blurred vision, Denies tearing, Denies double vision, Denies ear pain, Denies ear discharge, Denies nose pain, Denies nose congestion, Denies throat pain, Denies throat swelling, Denies mouth pain, Denies mouth swelling, Denies other Cardiovascular: Denies no symptoms, Denies as per HPI, Denies chest pain, Denies edema, Denies palpitations, Denies syncope, Denies other Respiratory: Denies no symptoms, Denies as per HPI, Denies change in phlegm color, Denies chest congestion, Denies cough, Denies hemoptysis, Denies excessive phlegm production, Denies pain on inspiration, Denies pain with cough, Denies dyspnea, Denies dyspnea on exertion, Denies snoring, Denies stridor, Denies wheezing, Denies other Gastrointestinal: Reports abdominal pain, Reports diarrhea, Reports nausea, Reports vomiting Musculoskeletal: Reports joint pain (left shoulder) Neurological: Reports headache Review of other systems: All other systems negative Physical Exam Related Data Allergies: Coded Allergies: codeine (Verified Allergy, Unknown, rash/swelling, 02/17/19) Vital signs reviewed: Yes Physical Exam CONSTITUTIONAL Constitutional: Present well-developed; Absent distressed, Absent ill appearing HENT HENT: Present normocephalic EYES Eyes: Reports conjunctivae normal NECK Neck: Present supple PULMONARY Pulmonary: Present breath sounds normal CARDIOVASCULAR Cardiovascular: Present regular rhythm GASTROINTESTINAL Abdominal: Present soft, Present tender GENITOURINARY SKIN Skin: Present warm MUSCULOSKELETAL Musculoskeletal: Present ROM normal NEUROLOGICAL Neurological: Present alert PSYCHOLOGICAL Psychological: Present mood/affect normal Results Laboratory Laboratory CBC Normal except H/H 9/28.6 UA Normal Lab results reviewed: Yes Laboratory comments BMP Normal Lactic acid elevated 2.29 Repeat lactic acid normal Imaging Imaging results reviewed: Yes Impressions EXAMINATION: CHEST 2 VIEWS INDICATION: cough COMPARISON: None FINDINGS: TUBES and LINES: None. LUNGS: Lungs are well inflated. There is no evidence of pneumonia or pulmonary edema. PLEURA: No pleural effusion or pneumothorax. HEART AND MEDIASTINUM: The cardiomediastinal silhouette is unremarkable. BONES AND SOFT TISSUES: No acute osseous lesion. Soft tissues are unremarkable. UPPER ABDOMEN: No free air under the diaphragm. Right upper quadrant surgical clips. IMPRESSION: No acute thoracic abnormality. Signed by: Dr. Eamon Conde MD on 09/23/2019 6:[address] head negative Left shoulder negative EXAM: CT Abdomen and Pelvis without contrast INDICATION: Abdominal Pain COMPARISON: None. TECHNIQUE: Abdomen and pelvis were scanned utilizing a multidetector helical scanner from the lung base to the pubic symphysis without administration of IV contrast. Coronal and sagittal reformations were obtained. Lack of IV contrast limits sensitivity for evaluation of visceral and vascular structures. IV CONTRAST: None. ORAL CONTRAST: None. COMPLICATIONS: None RADIATION DOSE: Total DLP: 1176 mGy*cm Estimated effective dose: (DLP x 0.015 x size factor) mSv CTDIvol has been reviewed. It is below the limits set by the Radiation Protocol Committee (RPC). FINDINGS: LINES and TUBES: None. LOWER THORAX: Minimal dependent atelectasis. HEPATOBILIARY: No evidence of focal lesion. No biliary ductal dilation. GALLBLADDER: Status post cholecystectomy. SPLEEN: No splenomegaly. PANCREAS: No focal masses or ductal dilatation. ADRENALS: No adrenal nodules KIDNEYS/URETERS: Kidneys enhance symmetrically. No evidence of hydronephrosis, solid mass, or stone. GI TRACT: No evidence of wall thickening or distension. Radiopaque densities within the small and large bowel, likely pills. The appendix is not identified, and there may be clips in the right lower quadrant, suggestive of appendectomy. PELVIC ORGANS/BLADDER: Unremarkable. LYMPH NODES: No lymphadenopathy. VESSELS: Unremarkable. PERITONEUM / RETROPERITONEUM: No free air or fluid. BONES AND SOFT TISSUES: There is a fracture of the left iliac crest laterally, with approximately 1.2 cm of maximal displacement. There is adjacent superficial edema and a 4.7 cm fluid attenuation collection. Superficially, there may be a tiny laceration. CONCLUSION: Acute, displaced fracture of the left iliac crest. Overlying fluid attenuation collection, which may represent subacute hematoma or edema. Possible overlying laceration. Recommend clinical correlation. Assessment & Plan Medical Decision Making MDM SBO, ischemic bowel, endometriosis, UTI Reassessment Reassessment Pt had no vomiting in the ER received 2 liters of IVF Lactic acid normalized Assessment & Plan Final Impression: (1) Seizure (2) Contusion (3) Sprain (4) Head injury (5) Abdominal pain (6) Fracture of iliac crest (7) Anemia Depart Disposition: HOME, SELF-[facility] Meds Active Scripts Promethazine Hcl* (PHENERGAN SUPP*) 25 Mg Supp, 25 MG RC TID PRN for VOMITING for 3 Days, #10 Prov:LENNY RAMACHANDRAN MD 09/23/19 Ondansetron Hcl* (ZOFRAN*) 4 Mg Tablet, 4 MG PO TID for vomiting for 3 Days, #10 Prov:LENNY RAMACHANDRAN MD 09/23/19 Promethazine Hcl (PHENERGAN) 25 Mg/1 Ml Ampul, 12.5 MG PO Q8HR PRN for nausea/vomiting, #20 Prov:CRISTÓBAL ALVAREZ MD 01/06/19 Reported Medications Escitalopram Oxalate (ESCITALOPRAM OXALATE) 20 Mg Tablet 01/05/19 Levetiracetam (LEVETIRACETAM) 1,000 Mg Tablet 01/05/19 Estradiol (Estradiol) 1 Each Patch.tdsw 01/05/19 Promethazine Hcl* (PHENERGAN SUPP*) 25 Mg Supp 01/05/19 Norethindrone Acetate (NORETHINDRONE ACETATE) 5 Mg Tablet 01/05/19 Metoprolol Tartrate (LOPRESSOR) 25 Mg Tab 01/05/19 Ondansetron Hcl (ONDANSETRON HCL) 4 Mg Tablet 01/05/19 Sertraline Hcl (SERTRALINE HCL) 100 Mg Tablet 01/05/19 Lamotrigine (LAMOTRIGINE) 100 Mg Tablet, 25 MG PO DAILY 01/05/19 Hydroxyzine Hcl (HYDROXYZINE HCL) 50 Mg Tablet 01/05/19 Gabapentin (GABAPENTIN) 100 Mg Capsule 01/05/19 Alprazolam (ALPRAZOLAM) 2 Mg Tablet 01/05/19 Medications in the ED Sodium Chloride 1,000 ml @ 0 mls/hr Q0M IV ; Start 09/23/19 at 16:45; Stop 10/23/19 at 16:44 Ketorolac Tromethamine 15 mg ONCE IV ; Start 09/23/19 at 17:00; Stop 09/23/19 at 18:59 LENNY RAMACHANDRAN MD Sep 23, 2019 16:56
[2019-09-23] MEDS ORDERED: KETOROLAC TROMETHAMINE 30 MG/ML VIAL IV NR (17:00)
[2019-09-23] MEDS ORDERED: KETOROLAC TROMETHAMINE 30 MG/ML VIAL ONE (17:12)
[2019-09-23] MEDS ORDERED: SODIUM CHLORIDE 0.9% 1000ML 1,000 ML ONE ×2 (17:12→18:15)
[2019-09-23] MEDS ORDERED: PHENERGAN SUPP25 MG RC (17:38)
[2019-09-23] MEDS ORDERED: ZOFRAN4 MG PO (17:38)
[2019-09-23] MEDS ORDERED: ONDANSETRON HCL INJ 2MG/ML 2ML 2 MG/ML VIAL IV STA (18:07)
--- NOTE | 2019-09-23 18:14 | Diagnostic Imaging Report ---
CT BRAIN [facility] HISTORY: Headache, fall COMPARISON: None. TECHNIQUE: Noncontrast axial scans were obtained from skull base to the vertex. Coronal and sagittal reconstructions obtained from the axial data. One or more of the following dose reduction techniques were used: Automated exposure control, adjustment of the mA and/or kV according to patient size, and/or utilization of iterative reconstruction technique. DISCUSSION: Scalp/Skull: Unremarkable. Brain sulci: Appropriate for patient's age. Ventricles: Normal in size and configuration. No hydrocephalus. Extra-axial spaces: No masses or fluid collections. Parenchyma: There is an incidental subcentimeter pineal cyst. Otherwise, no mass, hemorrhage, or large vascular territory acute infarct. Dural sinuses: No abnormal densities. Sellar/Suprasellar region: Intact. Skull base: Intact. Incidental findings: Right maxillary sinus opacification is partially imaged. The sphenoid and frontal sinuses are hypoplastic. IMPRESSION: No acute intracranial abnormalities. Signed by: Dr. Eddi Sanders M.D. on 09/23/2019 6:11 PM
--- NOTE | 2019-09-23 18:31 | Diagnostic Imaging Report ---
EXAMINATION: SHOULDER 2+VW LT -HOPD INDICATION: ^sz headache fall COMPARISON: None FINDINGS/IMPRESSION: No evidence of acute fracture, dislocation, or soft tissue abnormality. Signed by: Dr. Eamon Conde MD on 09/23/2019 6:28 PM
--- NOTE | 2019-09-23 18:39 | Diagnostic Imaging Report ---
EXAMINATION: CHEST 2 VIEWS INDICATION: cough COMPARISON: None FINDINGS: TUBES and LINES: None. LUNGS: Lungs are well inflated. There is no evidence of pneumonia or pulmonary edema. PLEURA: No pleural effusion or pneumothorax. HEART AND MEDIASTINUM: The cardiomediastinal silhouette is unremarkable. BONES AND SOFT TISSUES: No acute osseous lesion. Soft tissues are unremarkable. UPPER ABDOMEN: No free air under the diaphragm. Right upper quadrant surgical clips. IMPRESSION: No acute thoracic abnormality. Signed by: Dr. Eamon Conde MD on 09/23/2019 6:35 PM
--- NOTE | 2019-09-23 19:01 | Diagnostic Imaging Report ---
EXAM: CT Abdomen and Pelvis without contrast INDICATION: Abdominal Pain COMPARISON: None. TECHNIQUE: Abdomen and pelvis were scanned utilizing a multidetector helical scanner from the lung base to the pubic symphysis without administration of IV contrast. Coronal and sagittal reformations were obtained. Lack of IV contrast limits sensitivity for evaluation of visceral and vascular structures. IV CONTRAST: None. ORAL CONTRAST: None. COMPLICATIONS: None RADIATION DOSE: Total DLP: 1176 mGy*cm Estimated effective dose: (DLP x 0.015 x size factor) mSv CTDIvol has been reviewed. It is below the limits set by the Radiation Protocol Committee (RPC). FINDINGS: LINES and TUBES: None. LOWER THORAX: Minimal dependent atelectasis. HEPATOBILIARY: No evidence of focal lesion. No biliary ductal dilation. GALLBLADDER: Status post cholecystectomy. SPLEEN: No splenomegaly. PANCREAS: No focal masses or ductal dilatation. ADRENALS: No adrenal nodules KIDNEYS/URETERS: Kidneys enhance symmetrically. No evidence of hydronephrosis, solid mass, or stone. GI TRACT: No evidence of wall thickening or distension. Radiopaque densities within the small and large bowel, likely pills. The appendix is not identified, and there may be clips in the right lower quadrant, suggestive of appendectomy. PELVIC ORGANS/BLADDER: Unremarkable. LYMPH NODES: No lymphadenopathy. VESSELS: Unremarkable. PERITONEUM / RETROPERITONEUM: No free air or fluid. BONES AND SOFT TISSUES: There is a fracture of the left iliac crest laterally, with approximately 1.2 cm of maximal displacement. There is adjacent superficial edema and a 4.7 cm fluid attenuation collection. Superficially, there may be a tiny laceration. CONCLUSION: Acute, displaced fracture of the left iliac crest. Overlying fluid attenuation collection, which may represent subacute hematoma or edema. Possible overlying laceration. Recommend clinical correlation. Signed by: Dr. Eamon Conde MD on 09/23/2019 6:57 PM
== END 2019-09-23 19:30 | disposition home or self-care (01) ==
LOC: FSED 17:06
DX: S32.392A Other fracture of left ilium, initial encounter for closed fracture (principal); D64.9 Anemia, unspecified; G40.909 Epilepsy, unspecified, not intractable, without status epilepticus; W18.39XA Other fall on same level, initial encounter; R11.10 Vomiting, unspecified; Y93.89 Activity, other specified; Y92.019 Unspecified place in single-family (private) house as the place of occurrence of the external cause; Z90.49 Acquired absence of other specified parts of digestive tract; Z87.891 Personal history of nicotine dependence; N80.5 Endometriosis of intestine; Z88.5 Allergy status to narcotic agent; S00.93XA Contusion of unspecified part of head, initial encounter
CPT/HCPCS: 70450; 71046 ×2; 73030; 74176; 99284; J1885; J2405; J7030

== ENCOUNTER 2020-01-23 06:31 | Emergency (ER) | payer BC ==
[~2020-01-23] VITALS: Ht 154.9 cm; Wt 79.8 kg
[~2020-01-23 06:31] MED LIST changes: +PHENERGAN SUPP25 MG RC; +ZOFRAN4 MG PO
[2020-01-23] MEDS ORDERED: MORPHINE SULFATE 2 MG/ML SYR 1ML IV STA (07:17)
[2020-01-23] MEDS ORDERED: ONDANSETRON HCL INJ 2MG/ML 2ML 2 MG/ML VIAL IV STA (07:17)
--- NOTE | 2020-01-23 07:22 | NUR ---
pt tasks off mask, spitting clear sputum into bag, pt states she "can't" wear her mask. pt coughing and spitting only while staff in room. pt education on importance of wear mask and covering mouth and good hand washing. pt showed return demonstration successfully.
[2020-01-23] MEDS ORDERED: LORAZEPAM INJ 2 MG/ML VIAL IV ONE (07:30)
[2020-01-23] MEDS ORDERED: MORPHINE SULFATE INJ 4 MG/ML INJ 1ML IV ONE (07:30)
[2020-01-23] MEDS ORDERED: MORPHINE SULFATE INJ 4 MG/ML INJ 1ML ONE (07:35)
--- OUTSIDE RECORDS SUMMARY | 2020-01-23 07:40 | XMS REPORT | Clinical Summary ---
Author Author [place] [facility] [place] [facility] Address Unknown Phone Unavailable Care Team Providers Care Cro Name Role Phone Yoni Higgins PCP Allergies Comments Active Allergy Reactions Severity Noted Date Dizzy NOTE: HAS tolerated morphine Codeine Hives Medium 01/31/2019 Medications End Date Status Medication Sig Dispensed Refills Start Date Active omeprazole OTC (PriLOSEC Take 20 mg by 0 OTC) 20 MG EC tablet mouth 2 (two) times a day. Active keTOROlac (TORadol) 10 mg Take 10 mg by 0 tablet mouth every 6 (six) hours as needed for moderate pain. Active ondansetron (ZOFRAN) 8 MG Take 8 mg by 0 tablet mouth every 8 (eight) hours as needed for nausea or vomiting. Active sertraline (ZOLOFT) 100 Take 100 mg 0 MG tablet by mouth daily. Active ALPRAZolam (XANAX) 2 MG Take 2 mg by 0 tablet mouth 3 (three) times a day. Active hydrOXYzine (ATARAX) 50 Take 50 mg by 0 MG tablet mouth 2 (two) times a day. Active lamoTRIgine (LaMICtal) Take 100 mg 0 100 MG tablet by mouth 2 (two) times a day. Active promethazine (PHENERGAN) Insert 25 mg 0 25 MG suppository into the rectum daily as needed for nausea or vomiting. Active levETIRAcetam (KEPPRA) Take 1,000 mg 0 1000 MG tablet by mouth 2 (two) times a day. Active cyclobenzaprine Take 10 mg by 0 (FLEXERIL) 10 mg tablet mouth 2 (two) times a day as needed for muscle spasms. 02/11/2020 Active ondansetron ODT (Zofran Take 1 tablet 30 tablet 0 ODT) 4 MG disintegrating (4 mg total) 0 tablet by mouth every 8 (eight) hours as needed for nausea or vomiting for up to 30 days. 10/02/2019 Discontinued (Med List Clean up) estradiol (VIVELLE-DOT) Place 1 patch 0 0.1 mg/24 hr on the skin 2 (two) times a week. Wednesday & Wednesday07/27/2019 lamoTRIgine (LaMICtal) 25 Take 1 tablet 30 tablet 11 MG tablet (25 mg total) 9 by mouth daily. 07/26/2019 levETIRAcetam (KEPPRA) Take 1 tablet 60 tablet 11 0 1000 MG tablet (1,000 mg 9 total) by mouth 2 (two) times a day. 07/27/2019 sertraline (ZOLOFT) 100 Take 1 tablet 30 tablet 11 MG tablet (100 mg 9 total) by mouth daily. 10/02/2019 Discontinued (Med List Clean up) ondansetron (ZOFRAN) 4 MG Take 1 tablet 20 tablet 0 tablet (4 mg total) 9 by mouth every 8 (eight) hours as needed for nausea or vomiting. 10/22/2019 Discontinued traMADoL (ULTRAM) 50 mg Take 50 mg by 0 tabletIndications: acute mouth every 6 pain (six) hours as needed for moderate pain .acute pain. 10/07/2019 gabapentin (NEURONTIN) Take 1 15 capsule 0 300 mg capsule capsule (300 0 mg total) by mouth 3 (three) times a day for 5 days. 10/07/2019 HYDROcodone-acetaminophen Take 1 tablet 20 tablet 0 (NORCO) 10-325 mg per by mouth 0 tabletIndications: acute every 6 (six) pain hours as needed for moderate pain for up to 5 days .acute pain. Max Daily Amount: 4 tablets 10/07/2019 methocarbamoL (ROBAXIN) Take 1 tablet 15 tablet 0 500 MG tablet (500 mg 0 total) by mouth 3 (three) times a day for 5 days. 01/08/2020 Discontinued (Med List Clean up) cyclobenzaprine Take 1 tablet 10 tablet 0 10/22/19 2 (FLEXERIL) 10 mg tablet (10 mg total) 0 by mouth 2 (two) times a day as needed for muscle spasms for up to 10 doses. 01/19/2020 nystatin (MYCOSTATIN) Take 5 mL by 60 mL 0 100,000 unit/mL mouth 4 0 suspension (four) times a day for 7 days. Swish in mouth 01/19/2020 ciprofloxacin (Cipro) 500 Take 1 tablet 14 tablet 0 MG tablet (500 mg 0 total) by mouth 2 (two) times a day for 7 days. Active Problems Problem Noted Date Nausea and vomiting 01/08/2020 Lower abdominal pain 09/29/2017 Lactic acid acidosis 09/16/2017 Cannabis abuse 09/16/2017 Abdominal pain, acute, generalized 09/15/2017 Abdominal pain 09/06/2017 Intractable vomiting with nausea 09/06/2017 Endometriosis 09/06/2017 Intractable vomiting without nausea 08/08/2017 Chronic abdominal pain 08/08/2017 Hepatitis 08/05/2017 Pelvic pain 08/03/2017 Encounters Care Team Description Date Type Specialty Bernard Sanchez MD EGD 01/11/2020 Surgery Gastroenterology Sotero Bronson MD 01/11/2020 Anesthesia Gastroenterology Event Sameer Zapata, Shadi Carrasco MD Haas, MD Michael Garcia Swati, MD Nausea and vomiting, intractability of v omiting not specified, unspecified vomiting type (Primary Dx); Nausea and vomiting; Pelvic pain 01/08/2020 Hospital General Internal [place] - Encounter 01/12/2020 01/08/2020 Travel Evin Lunsford MD 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 Emergency Emergency Medicine - 12/27/2019 Boogie Caballero MD Chronic abdominal pain (Primary Dx) 11/26/2019 Emergency Emergency Medicine Evin Lunsford MD Right lower quadrant abdominal pain (Di perla Dx) 10/22/2019 Emergency Emergency Medicine Hilario Guevara MD Narcisse, MD Sanchez Breen III, Socrates Burks MD Lower abdominal pain (Primary Dx); Closed fracture of left iliac crest, initial encounter (HCC); Tachycardia 10/01/2019 Emergency General Internal [place] - 10/03/2019 10/01/2019 Travel Earl Reyes MD Endometriosis (Primary Dx) 06/21/2019 Emergency Emergency Medicine Sivakumar Wise MD Acute abdominal pain in left lower quadr ant (Primary Dx) 03/31/2019 Emergency Emergency Medicine Morena Brown MD Lower abdominal pain (Primary Dx) 02/17/2019 Emergency Emergency Medicine after 01/22/2019 Surgical History Surgery Date Site/Laterality Comments TUMOR EXCISION giant bone cell, right arm HYSTERECTOMY 06/11/2016 Dr Landon CHOLECYSTECTOMY ESOPHAGOGASTRODUODENOSCOP Y ESOPHAGOGASTRODUODENOSCOP 08/12/2017 N/A Proc edure: ESOPHAGOGASTRODUODENOSCOPY (EGD) with Y (EGD) biopsies; Surgeon: Tai Hauser MD; Location: [facility]; Service: Gastroenterology; Laterality: N/A; SECTION APPENDECTOMY ESOPHAGOGASTRODUODENOSCOP 01/11/2020 Left Proc edure: EGD; Surgeon: Bernard Sanchez MD; Y (EGD) Location: [facility]; S ervice: Gastroenterology; Laterality: Left; Medical History Medical History Date Comments GERD (gastroesophageal reflux disease) Anxiety Endometriosis IBS (irritable bowel syndrome) Bone, giant cell tumor right forearm PTSD (post-traumatic stress disorder) Seizures (HCC) last seizure 01/06, on medi cation per pt Liver disease pt does not know what kind of liver disease Family History Medical History Relation Name Comments [...] Used Never Smoker Smokeless Tobacco: Never Used Tobacco Cessation: Counseling Given: No Drinks/Week oz/Week Comments Alcohol Use patient states she d id 15 years ago Not Currently Alcohol Habits Answer Date Recorded How often do you have a drink containing alcohol? Never 10/31/2018 How many drinks containing alcohol do you have on No t asked a typical day when you are drinking? How often do you have six or more drinks on one Never 01/08/2020 occasion? Sex Assigned at Date Recorded Not on file Date Recorded COVID-19 Exposure Response 01/08/2020 10:06 AM AIR CONDITIONING MANAGER In the last month, have you been in contact with No / Unsure someone who was confirmed or suspected to have Coronavirus / COVID-19? Last Filed Vital Signs Reading Time Taken Comments Vital Sign 189/100 01/12/2020 8:53 AM AIR CONDITIONING MANAGER Blood Pressure 66 01/12/2020 8:53 AM AIR CONDITIONING MANAGER Pulse 37 C (98.6 F) 01/12/2020 8:53 AM AIR CONDITIONING MANAGER Temperature 18 01/12/2020 8:53 AM AIR CONDITIONING MANAGER Respiratory Rate 99% 01/12/2020 8:53 AM AIR CONDITIONING MANAGER Oxygen Saturation - - Inhaled Oxygen Concentration 78.3 kg (172 lb 9.6 oz) 01/12/2020 7:00 AM AIR CONDITIONING MANAGER Weight 154.9 cm (5' 1") 01/08/2020 8:13 AM AIR CONDITIONING MANAGER Height 32.61 01/08/2020 8:13 AM AIR CONDITIONING MANAGER Body Mass Index Plan of Treatment Health Maintenance Due Date Last Done Comments CERVICAL CANCER SCREENING 2009 INFLUENZA VACCINE 09/30/2019 Procedures Comments Procedure Name Priority Date/Time Associated Diag nosis ESTIMATED GFR Routine 01/12/2020 4:59 AM AIR CONDITIONING MANAGER COMPREHENSIVE METABOLIC Routine 01/12/2020 PANEL 4:59 AM AIR CONDITIONING MANAGER HC COMPLETE BLD COUNT Routine 01/12/2020 W/AUTO DIFF 4:59 AM AIR CONDITIONING MANAGER ESOPHAGOGASTRODUODENOSCOP 01/11/2020 Pelvic pain Y (EGD) 7:18 AM AIR CONDITIONING MANAGER ESTIMATED GFR Routine 01/11/2020 4:00 AM AIR CONDITIONING MANAGER COMPREHENSIVE METABOLIC Routine 01/11/2020 PANEL 4:00 AM AIR CONDITIONING MANAGER HC COMPLETE BLD COUNT Routine 01/11/2020 W/AUTO DIFF 3:40 AM AIR CONDITIONING MANAGER C-REACTIVE PROTEIN Routine 01/10/2020 5:15 PM AIR CONDITIONING MANAGER PROCALCITONIN Routine 01/10/2020 5:15 PM AIR CONDITIONING MANAGER ESTIMATED GFR Routine 01/10/2020 12:33 AM AIR CONDITIONING MANAGER PHOSPHORUS LEVEL Routine 01/10/2020 12:33 AM AIR CONDITIONING MANAGER MAGNESIUM LEVEL Routine 01/10/2020 12:33 AM AIR CONDITIONING MANAGER COMPREHENSIVE METABOLIC Routine 01/10/2020 PANEL 12:33 AM AIR CONDITIONING MANAGER HC COMPLETE BLD COUNT Routine 01/10/2020 W/AUTO DIFF 12:20 AM AIR CONDITIONING MANAGER XR CHEST 2 VW Routine 01/09/2020 9:33 AM AIR CONDITIONING MANAGER MRI PELVIS W WO CONTRAST Routine 01/09/2020 8:38 AM AIR CONDITIONING MANAGER HC COMPLETE BLD COUNT Routine 01/09/2020 W/AUTO DIFF 6:00 AM AIR CONDITIONING MANAGER ESTIMATED GFR Routine 01/09/2020 4:00 AM AIR CONDITIONING MANAGER MAGNESIUM LEVEL Routine 01/09/2020 4:00 AM AIR CONDITIONING MANAGER COMPREHENSIVE METABOLIC Routine 01/09/2020 PANEL 4:00 AM AIR CONDITIONING MANAGER POC GLUCOSE Routine 01/08/2020 11:25 PM AIR CONDITIONING MANAGER LACTIC ACID LEVEL, SEPSIS Timed 01/08/2020 - NOW AND REPEAT 2X EVERY 9:45 PM AIR CONDITIONING MANAGER 3 HOURS HEMOGLOBIN A1C Routine 01/08/2020 9:45 PM AIR CONDITIONING MANAGER LAMOTRIGINE LEVEL Routine 01/08/2020 9:45 PM AIR CONDITIONING MANAGER XR PICC CHEST PORTABLE Routine 01/08/2020 Nausea and vomiting 6:49 PM AIR CONDITIONING MANAGER PICC INSERTION REQUEST Routine 01/08/2020 6:44 PM AIR CONDITIONING MANAGER VITAMIN B12 LEVEL Routine 01/08/2020 4:29 PM AIR CONDITIONING MANAGER FERRITIN LEVEL Routine 01/08/2020 4:29 PM AIR CONDITIONING MANAGER TOTAL IRON BINDING Routine 01/08/2020 CAPACITY 4:29 PM AIR CONDITIONING MANAGER LACTIC ACID LEVEL STAT 01/08/2020 2:00 PM AIR CONDITIONING MANAGER COVID-19 QUALITATIVE PCR STAT 01/08/2020 2:[address] ABDOMEN PELVIS W STAT 01/08/2020 CONTRAST 11:05 AM AIR CONDITIONING MANAGER US PELVIC TRANSABDOMINAL STAT 01/08/2020 9:45 AM AIR CONDITIONING MANAGER LACTIC ACID LEVEL STAT 01/08/2020 9:14 AM AIR CONDITIONING MANAGER ESTIMATED GFR STAT 01/08/2020 9:14 AM AIR CONDITIONING MANAGER URINALYSIS SCREEN AND STAT 01/08/2020 MICROSCOPY, WITH REFLEX 9:14 AM AIR CONDITIONING MANAGER TO CULTURE LIPASE LEVEL STAT 01/08/2020 9:14 AM AIR CONDITIONING MANAGER COMPREHENSIVE METABOLIC STAT 01/08/2020 PANEL 9:14 AM AIR CONDITIONING MANAGER HC COMPLETE BLD COUNT STAT 01/08/2020 W/AUTO DIFF 9:14 AM AIR CONDITIONING MANAGER URINE CULTURE STAT 01/08/2020 9:14 AM AIR CONDITIONING MANAGER ID CRITICAL CARE, E/M Routine 01/08/2020 30-74 MINUTES 8:49 AM AIR CONDITIONING MANAGER XR ABDOMEN ACUTE INC STAT 12/26/2019 CHEST 1V 10:50 PM CDT ESTIMATED GFR STAT 12/26/2019 8:37 PM CDT LIPASE LEVEL STAT 12/26/2019 8:37 PM CDT COMPREHENSIVE METABOLIC STAT 12/26/2019 PANEL 8:37 PM CDT HC COMPLETE BLD COUNT STAT 12/26/2019 W/AUTO DIFF 8:[address] ABDOMEN PELVIS WO STAT 11/26/2019 CONTRAST 10:37 AM CDT ESTIMATED GFR STAT 11/26/2019 10:20 AM CDT LACTIC ACID LEVEL, SEPSIS STAT 11/26/2019 - NOW AND REPEAT 2X EVERY 10:20 AM CDT 3 HOURS LIPASE LEVEL STAT 11/26/2019 10:20 AM CDT COMPREHENSIVE METABOLIC STAT 11/26/2019 PANEL 10:20 AM CDT URINE CULTURE STAT 11/26/2019 10:17 AM CDT HCG QUALITATIVE, URINE STAT 11/26/2019 SCREEN 9:25 AM CDT URINALYSIS SCREEN AND STAT 11/26/2019 MICROSCOPY, WITH REFLEX 9:25 AM CDT TO CULTURE HC COMPLETE BLD COUNT STAT 11/26/2019 W/AUTO DIFF 9:20 AM CDT URINE CULTURE STAT 10/22/2019 4:53 PM CDT PARTIAL THROMBOPLASTIN STAT 10/22/2019 TIME (PTT) 4:24 PM CDT PROTHROMBIN TIME WITH INR STAT 10/22/2019 4:24 PM CDT ESTIMATED GFR STAT 10/22/2019 4:24 PM CDT LIPASE LEVEL STAT 10/22/2019 4:24 PM CDT COMPREHENSIVE METABOLIC STAT 10/22/2019 PANEL 4:24 PM CDT HC COMPLETE BLD COUNT STAT 10/22/2019 W/AUTO DIFF 4:24 PM CDT HCG QUALITATIVE, URINE STAT 10/22/2019 SCREEN 4:24 PM CDT URINALYSIS SCREEN AND STAT 10/22/2019 MICROSCOPY, WITH REFLEX 4:24 PM CDT TO CULTURE HC COMPLETE BLD COUNT Routine 10/03/2019 W/AUTO DIFF 7:13 AM CDT ESTIMATED GFR Routine 10/03/2019 4:00 AM CDT TRANSFERRIN LEVEL Routine 10/03/2019 4:00 AM CDT FERRITIN LEVEL Routine 10/03/2019 4:00 AM CDT TOTAL IRON BINDING Routine 10/03/2019 CAPACITY 4:00 AM CDT COMPREHENSIVE METABOLIC Routine 10/03/2019 PANEL 4:00 AM CDT XR CHEST 1 VW PORTABLE Routine 10/02/2019 8:20 AM CDT CBC WITH PLATELET AND Routine 10/02/2019 DIFFERENTIAL 5:55 AM CDT ESTIMATED GFR Routine 10/02/2019 5:55 AM CDT COMPREHENSIVE METABOLIC Routine 10/02/2019 PANEL 5:55 AM CDT HEMOGLOBIN A1C Routine 10/02/2019 5:55 AM CDT MAGNESIUM LEVEL Routine 10/02/2019 5:55 AM CDT LIPASE LEVEL Routine 10/02/2019 5:55 AM CDT CREATINE KINASE, TOTAL Routine 10/02/2019 (CPK) 5:55 AM CDT URINE DRUGS OF ABUSE Routine 10/02/2019 SCREEN 5:00 AM CDT XR PELVIS 3+ VW STAT 10/02/2019 12:30 AM CDT COVID-19 QUALITATIVE PCR STAT 10/02/2019 12:08 AM CDT LACTIC ACID LEVEL, SEPSIS Timed 10/01/2019 - NOW AND REPEAT 2X EVERY 11:45 PM CDT [address] ABDOMEN PELVIS W STAT 10/01/2019 CONTRAST 10:53 PM CDT ECG 12-LEAD STAT 10/01/2019 10:11 PM CDT LIPASE LEVEL STAT 10/01/2019 9:45 PM CDT LACTIC ACID LEVEL, SEPSIS STAT 10/01/2019 - NOW AND REPEAT 2X EVERY 9:45 PM CDT 3 HOURS ESTIMATED GFR STAT 10/01/2019 9:45 PM CDT HCG QUALITATIVE, URINE STAT 10/01/2019 SCREEN 9:45 PM CDT URINALYSIS SCREEN AND STAT 10/01/2019 MICROSCOPY, WITH REFLEX 9:45 PM CDT TO CULTURE COMPREHENSIVE METABOLIC STAT 10/01/2019 PANEL 9:45 PM CDT HC COMPLETE BLD COUNT STAT 10/01/2019 W/AUTO DIFF 9:45 PM CDT URINE CULTURE STAT 10/01/2019 9:[address] ABDOMEN PELVIS W STAT 06/21/2019 CONTRAST 10:44 AM CDT URINE CULTURE STAT 06/21/2019 10:33 AM CDT ESTIMATED GFR STAT 06/21/2019 9:45 AM CDT CREATINE KINASE, TOTAL STAT 06/21/2019 (CPK) 9:45 AM CDT URINALYSIS SCREEN AND STAT 06/21/2019 MICROSCOPY, WITH REFLEX 9:45 AM CDT TO CULTURE LACTIC ACID LEVEL, SEPSIS STAT 06/21/2019 - NOW AND REPEAT 2X EVERY 9:45 AM CDT 3 HOURS LIPASE LEVEL STAT 06/21/2019 9:45 AM CDT COMPREHENSIVE METABOLIC STAT 06/21/2019 PANEL 9:45 AM CDT PARTIAL THROMBOPLASTIN STAT 06/21/2019 TIME (PTT) 9:45 AM CDT PROTHROMBIN TIME WITH INR STAT 06/21/2019 9:45 AM CDT HC COMPLETE BLD COUNT STAT 06/21/2019 W/AUTO DIFF 9:45 AM CDT URINE CULTURE STAT 03/31/2019 6:05 AM AIR CONDITIONING MANAGER LIPASE LEVEL Routine 03/31/2019 5:45 AM AIR CONDITIONING MANAGER ESTIMATED GFR Routine 03/31/2019 5:45 AM AIR CONDITIONING MANAGER COMPREHENSIVE METABOLIC Routine 03/31/2019 PANEL 5:45 AM AIR CONDITIONING MANAGER URINALYSIS SCREEN AND STAT 03/31/2019 MICROSCOPY, WITH REFLEX 5:45 AM AIR CONDITIONING MANAGER TO CULTURE HCG QUALITATIVE, SERUM STAT 03/31/2019 SCREEN 5:10 AM AIR CONDITIONING MANAGER PROTHROMBIN TIME WITH INR STAT 03/31/2019 5:10 AM AIR CONDITIONING MANAGER HC COMPLETE BLD COUNT STAT 03/31/2019 W/AUTO DIFF 5:10 AM AIR CONDITIONING MANAGER ECG ED PRELIMINARY Routine 03/31/2019 INTERPRETATION 4:59 AM AIR CONDITIONING MANAGER ECG 12-LEAD STAT 03/31/2019 4:56 AM AIR CONDITIONING MANAGER XR ABDOMEN 1 VW STAT 02/17/2019 9:27 PM AIR CONDITIONING MANAGER ESTIMATED GFR STAT 02/17/2019 7:45 PM AIR CONDITIONING MANAGER HCG QUALITATIVE, SERUM STAT 02/17/2019 SCREEN 7:45 PM AIR CONDITIONING MANAGER LACTIC ACID LEVEL, SEPSIS STAT 02/17/2019 - NOW AND REPEAT 2X EVERY 7:45 PM AIR CONDITIONING MANAGER 3 HOURS LIPASE LEVEL STAT 02/17/2019 7:45 PM AIR CONDITIONING MANAGER COMPREHENSIVE METABOLIC STAT 02/17/2019 PANEL 7:45 PM AIR CONDITIONING MANAGER HC COMPLETE BLD COUNT STAT 02/17/2019 W/AUTO DIFF 7:45 PM AIR CONDITIONING MANAGER after 01/22/2019 Results * Estimated GFR (01/12/2020 4:59 AM AIR CONDITIONING MANAGER) Only the most recent of 14 results within the time period is included. Estimated GFR >=90 mL/min/1.73 m2 [place] Comment: [facility] Interpretation G1 >=90 Normal or high G2 60-89 Mildly decreased G3a 45-59 Mildly to moderately decreased G3b 30-44 Moderately to severely decreased G4 15-29 Severely decreased G5 <15 Kidney failure The eGFR was calculated using the Chronic Kidney Disease Epidemiology Collaboration (CKD-EPI) equation. Interpretation is based on recommendations of the National Kidney Foundation-Kidney Disease Outcomes Quality Initiative (NKF-KDOQI) published in 2014. Specimen Plasma Performing Organization Address City/State/ZIP Code [place] Number [facility] DEPARTMENT OF [address] [place] [address] PATHOLOGY AND GENOMIC MEDICINE [address] * CBC with platelet and differential (01/12/2020 4:59 AM AIR CONDITIONING MANAGER) Only the most recent of 14 results within the time period is included. Pathologist [facility] WBC 8.63 4.50 - 11.00 k/uL [facility] RBC 3.73 (L) 4.20 - 5.50 m/uL [facility] HGB 9.2 (L) 12.0 - 16.0 g/dL [facility] HCT 30.1 (L) 37.0 - 47.0 % [facility] MCV 80.7 (L) 82.0 - 100.0 fL [facility] MCH 24.7 (L) 27.0 - 34.0 pg [facility] MCHC 30.6 (L) 31.0 - 37.0 g/dL [facility] RDW - SD 61.1 (H) 37.0 - 55.0 fL [facility] MPV 10.4 8.8 - 13.2 fL [facility] Platelet count 273 150 - 400 k/uL [facility] Nucleated RBC 0.00 /100 WBC [facility] Neutrophils 64.9 39.0 - 69.0 % [facility] Lymphocytes 24.6 (L) 25.0 - 45.0 % [facility] Monocytes 8.0 0.0 - 10.0 % [facility] Eosinophils 2.0 0.0 - 5.0 % [facility] Basophils 0.2 0.0 - 1.0 % [facility] Immature 0.3Comment: "Immature 0.0 - 1.0 % [place] granulocytes granulocytes" (promyelocytes, METHOD IST myelocytes, metamyelocytes) [facility] Specimen Plasma Performing Organization Address City/[facility] Code [place] Number [facility] DEPARTMENT OF [address] [place] [address] PATHOLOGY AND GENOMIC MEDICINE [address] * Comprehensive metabolic panel (01/12/2020 4:59 AM AIR CONDITIONING MANAGER) Only the most recent of 14 results within the time period is included. Sodium 140 135 - 148 mEq/L [facility] Potassium 3.1 (L) 3.5 - 5.0 mEq/L [facility] Chloride 102 98 - 112 mEq/L [facility] CO2 27 24 - 31 mEq/L [facility] Anion gap 11@ANIO 7 - 15 mEq/L [facility] BUN 4 (L) 6 - 20 mg/dL [facility] Creatinine 0.80 0.50 - 0.90 mg/dL [facility] Glucose 94 65 - 99 mg/dL [facility] Calcium 8.9 8.3 - 10.2 mg/dL [facility] Protein 6.9 6.3 - 8.3 g/dL [place] Comment: [facility] 4.6-7.0 g/dL 1 week 4.4-7.6 g/dL 7 months-1year 5.1-7.3 g/dL 1-2 years 5.6-7.5 g/dL >3 years 6.0-8.0 g/dL 18-150 6.3-8.3 g/dL Albumin 3.5 3.5 - 5.0 g/dL [facility] A/G ratio 1.0 0.7 - 3.8 [facility] Alkaline 83 35 - 104 U/L [place] phosphatase [facility] AST 21 10 - 35 U/L [facility] ALT 32 5 - 50 U/L [facility] Total bilirubin 0.4 0.0 - 1.2 mg/dL [facility] Specimen Plasma Performing Organization Address City/[facility] [place] Number [facility] DEPARTMENT OF [address] [place] [address] PATHOLOGY AND GENOMIC MEDICINE [address] * Procalcitonin (01/10/2020 5:15 PM AIR CONDITIONING MANAGER) Procalcitonin 0.06 0.00 - 0.08 ng/mL [place] Comment: RELIGIOUS PCT: 0.00-0.10 ng/mL: HOSPITAL Significant bacterial infection UNLIKELY. PCT: 0.11-0.50 ng/mL: Significant bacterial infection POSSIBLE; retest 12-24hrs; consider clinical picture, other diagnostic studies. PCT: 0.51-2.00 ng/mL: Significant bacterial infection LIKELY; consider clinical picture and other diagnostic studies. PCT: >2.00 ng/mL: Suggestive of presence of bacterial infection. For guidance on antibiotic de-escalation or discontinuation, consult the antimicrobial stewardship team.The PCT algorithm for antibiotic therapy stewardship in patients with suspected or confirmed lower respiratory tract infections can be found at: http://www/dept/antimicrobial/ home.htm. Specimen Blood Performing Organization Address City/State/ZIP Code [place] Number [facility] DEPARTMENT OF [address] [place] [address] PATHOLOGY AND [facility] MEDICINE [address] * C-reactive protein (01/10/2020 5:15 PM AIR CONDITIONING MANAGER) CRP 0.88 (H) 0.00 - 0.50 mg/dL [facility] Specimen Plasma Performing Organization Address City/[facility]/ZIP [facility] [place] Number [facility] [place] [address] PATHOLOGY AND GENOMIC MEDICINE [address] * Phosphorus level (01/10/2020 12:33 AM AIR CONDITIONING MANAGER) Phosphorus 2.3 (L) 2.4 - 4.5 mg/dL [facility] Specimen Plasma Performing Organization Address City/[facility] [place] Number [facility] [place] [address] PATHOLOGY AND GENOMIC MEDICINE [address] * Magnesium level (01/10/2020 12:33 AM AIR CONDITIONING MANAGER) Only the most recent of 3 results within the time period is included. Magnesium 1.8 1.6 - 2.6 mg/dL [facility] Specimen Plasma Performing Organization Address City/[facility] [place] Number [facility] [place] [address] PATHOLOGY AND GENOMIC MEDICINE [address] * XR Chest 2 Vw (01/09/2020 9:33 AM AIR CONDITIONING MANAGER) Specimen Narrative Performed At EXAMINATION: XR CHEST 2 VW [facility] CLINICAL HISTORY: 29 years Female Fat igue and malaise COMPARISON: 01/08/2020 IMPRESSION: 1.Left-sided PICC line extends into the right atrium. 2.The cardiomediastinal silhouette is n ormal. 3.There is no evidence of pulmonary ender ma. There are no focal consolidations or effusions. 4.Regional skeletal structures are slig htly osteopenic. 5.Status post cholecystectomy. [id number] Procedure Note Interface, Radiology Results Incoming - 01/09/2020 9:39 AM AIR CONDITIONING MANAGER EXAMINATION: XR CHEST 2 VW CLINICAL HISTORY: 29 years Female Fatigue and malaise COMPARISON: 01/08/2020 IMPRESSION: 1.Left-sided PICC line extends into the right atrium. 2.The cardiomediastinal silhouette is no rmal. 3.There is no evidence of pulmonary darshan a. There are no focal consolidations or effusions. 4.Regional skeletal structures are sligh tly osteopenic. 5.Status post cholecystectomy. [id number] Performing Organization Address [facility]/ZIP Code [place] Number [facility] [address] [place] [address] * MRI Pelvis W Wo Contrast (01/09/2020 8:38 AM AIR CONDITIONING MANAGER) Specimen Narrative Performed At [facility] EXAMINATION: MRI PELVIS W WO CONTRAST CLINICAL HISTORY: Endometriosis, To e valuate possible rectovaginal endometriosis COMPARISON: CT 01/08/2020 TECHNIQUE: MR of the pelvis with and wi thout intravenous gadolinium. FINDINGS: Status post hysterectomy. Ovaries are n ot seen. There is no adnexal or other pelvic mas s or cyst. No suspicious peritoneal or bowel serosal thickening. Rectovaginal septum is clear. No lymphadenopathy. No free fluid. Grossly normal bladder. No focal osseous lesion. IMPRESSION: Negative exam. No MR evidence of pelvic endometriosis. [id number] Procedure Note Interface, Radiology Results Incoming - 01/09/2020 1:34 PM AIR CONDITIONING MANAGER EXAMINATION: MRI PELVIS W WO CONTRAST CLINICAL HISTORY: Endometriosis, To evaluate possible rectovaginal endometriosis COMPARISON: CT 01/08/2020 TECHNIQUE: MR of the pelvis with and without intravenous gadolinium. FINDINGS: Status post hysterectomy. Ovaries are not seen. There is no adnexal or other pelvic mass or cyst. No suspicious peritoneal or bowel serosal thickening. Rectovaginal septum is clear. No lymphadenopathy. No free fluid. Grossly normal bladder. No focal osseous lesion. IMPRESSION: Negative exam. No MR evidence of pelvic endometriosis. [id number] Performing Organization Address City/[facility]/ZIP Code P malena Number [facility] [address] [place] [address] * POC glucose (01/08/2020 11:25 PM AIR CONDITIONING MANAGER) POC glucose 89 65 - 99 mg/dL [place] Comment: RELIGIOUS Business Process Expert Name: [facility] Device ID: [id number] Chartable: [facility] Notified RN Specimen Blood Performing Organization Address City/State/ZIP Code P malena Number [facility] DEPARTMENT OF [address] [place] [address] PATHOLOGY AND GENOMIC MEDICINE [address] * Lactic acid level, SEPSIS - Now and repeat 2x every 3 hours (01/08/2020 9:45 PM AIR CONDITIONING MANAGER) Only the most recent of 6 results within the time period is included. Pathologist [facility] Lactic acid 0.8 0.5 - 2.2 mmol/L [facility] Specimen Blood Performing Organization Address City/[facility] P malena Number [facility] DEPARTMENT OF [address] [place] [address] PATHOLOGY AND GENOMIC MEDICINE [address] * Lamotrigine level (01/08/2020 9:45 PM AIR CONDITIONING MANAGER) Pathologist [facility] Lamotrigine <0.9 (L) 2.5 - 15.0 ug/mL [facility] Comment: INTERPRETIVE INFORMATION: Lamotrigine Therapeutic Range: 2.5-15.0 ug/mL Toxic: Not well established Pharmacokinetics varies widely, particularly with co-medications and/or compromised renal function. Adverse effects may include dizziness, somnolence, nausea and vomiting. Performed By: [facility] [address] [place] [address] Product Owner: Isabella Hess MD Specimen Serum Performing Organization Address [facility] P malena Number [facility] [address] [place] [address] [facility] [address] [place] [address] * Hemoglobin A1c (01/08/2020 9:45 PM AIR CONDITIONING MANAGER) Only the most recent of 2 results within the time period is included. Pathologist [facility] Hemoglobin A1C 5.3 4.0 - 5.6 % [place] Comment: RELIGIOUS HbA1c cutoffs for diagnosing HOSPITAL diabetes: 4.0% - 5.6% = normal 5.7% - 6.4% = increased risk for diabetes (prediabetes)9 >=6.5% = diabetes9 Goals for glycemic control (ADA 2016) < 7.0% Target for non adults with diabetes. More or less stringent targets may be appropriate for individual patients. <7.5% Target for Children and adolescents with type 1 diabetes. Specimen Blood Performing Organization Address City/[facility]/ZIP Code P malena Number [facility] DEPARTMENT OF [address] [place] [address] PATHOLOGY AND GENOMIC MEDICINE [place] RELIGIOUS [address] [place] [address] HOSPITAL * XR Picc Chest Portable (01/08/2020 6:49 PM AIR CONDITIONING MANAGER) Specimen Narrative Performed At EXAMINATION: XR PICC CHEST PORTABLE [facility] CLINICAL HISTORY: R11.2 Nausea with v omiting unspecified, multiple iv meds COMPARISON: 12/26/2019 IMPRESSION: Left PICC with tip in the s uperior cavoatrial junction. No consolidation or pneumothorax. Possi ble trace left pleural effusion. Cardiomediastinal silhouette is at uppe r limits of normal size. [facility]-[id number] Procedure Note Hm Interface, Radiology Results Incoming - 01/08/2020 7:09 PM AIR CONDITIONING MANAGER EXAMINATION: XR PICC CHEST PORTABLE CLINICAL HISTORY: R11.2 Nausea with vomiting unspecified, multiple iv meds COMPARISON: 12/26/2019 IMPRESSION: Left PICC with tip in the superior cavoatrial junction. No consolidation or pneumothorax. Possible trace left pleural effusion. Cardiomediastinal silhouette is at upper limits of normal size. [facility]-[id number] Performing Organization Address [facility]/ZIP Code P malena Number [facility] [address] [place] [address] * PICC insertion (01/08/2020 6:44 PM AIR CONDITIONING MANAGER) Narrative Performed At Henrique Andrade RN 01/08/2020 6: 47 PM PICC insertion Date/Time: 01/08/2020 6:44 PM Performed by: Jaret Woo RN Authorized by: Shadi Bell MD Consent: Consent obtained: Written Consent given by: Patient Risks discussed: Arterial puncture, incorrect placement, nerve damage, bleeding, infection, superficial thromb us and deep vein thrombus Alternatives discussed: Delayed diana atment [place] protocol: Procedure explained and questions ans wered to patient or proxy's satisfaction: yes Relevant documents present and verifi ed: yes Test results available and properly l abeled: yes Imaging studies available: yes Required blood products, implants, de vices, and special equipment available: yes Site/side marked: yes Immediately prior to procedure, a gege e out was called: yes Patient identity confirmed: Verball y with patient, arm band, provided demographic data and hospital-assigned identification number Pre-procedure details: Hand hygiene: Hand hygiene performed prior to insertion Sterile barrier technique: All elemen ts of maximal sterile technique followed Skin preparation: ChloraPrep Skin preparation agent: Marce stubbs prior to procedure Anesthesia (see MAR for exact dosages): Anesthesia method: Local infiltrati on Local anesthetic: Lidocaine 1% w/o epi Route administered: Subcutaneous PICC Line Placement Details: Patient position: HOB elev 30 deg. Vessel Size (mm): 5.6. Indication: Known longterm IV ther apy Location: Left brachial Site selection rationale: Wound on RFA with dressing in place Device Type: Non-valved Catheter Lumens: Double lumen Catheter size: 4 Fr Catheter to vein ratio: 26% PICC Characteristics: Catheter Brand: KartoonArt Provena External Catheter Length (cm): 0 Internal Catheter Length (cm): 42 Total Catheter Length (cm): 42 Catheter Lot Number: [id number] Catheter Expiration Date: 07/29/2020 Procedure details: Landmarks identified: yes Ultrasound guidance: yes Sterile ultrasound techniques: Steril e gel and sterile probe covers were used Number of attempts: 1 Number of PICC kits used during proce dure: 1 Extra guide wire required?: No Purpose of procedure: PICC Placemen t Successful PICC Placement: yes Patency/Placement: Flushes without difficulty, flushed with 10 mL normal saline, positive blood return an d ultrasound placement verified Dressing/Securement: Catheter secur ement device and antimicrobial dressing applied (CHG Tegaderm) Blood Loss Amount: Less than 20 mL Post-procedure details: Post-procedure: Dressing applied Tip placement confirmed by: X-Ray Patient tolerance of procedure: Lee erated well, no immediate complications * Total iron binding capacity (01/08/2020 4:29 PM AIR CONDITIONING MANAGER) Only the most recent of 2 results within the time period is included. Iron level 39 37 - 145 ug/dL [facility] Iron binding 395 200 - 400 ug/dL [facility] % Saturation 9.9 (L) 15.0 - 38.0 % [facility] Specimen Plasma Performing Organization Address City/State/ZIP Code P malena Number [facility] DEPARTMENT OF [address] [place] [address] PATHOLOGY AND GENOMIC MEDICINE [address] * Ferritin level (01/08/2020 4:29 PM AIR CONDITIONING MANAGER) Only the most recent of 2 results within the time period is included. Pathologist [facility] Ferritin level <13 (A) 13 - 150 ng/mL [facility] Specimen Plasma Performing Organization Address City/[facility] Code P malena Number [facility] [place] [address] PATHOLOGY AND [facility] MEDICINE [address] * Vitamin B12 level (01/08/2020 4:29 PM AIR CONDITIONING MANAGER) Pathologist [facility] Vitamin B12 376 211 - 946 pg/mL [place] Comment: RELIGIOUS Significant overlap exists HOSPITAL between normal and deficiency states. However, most patients with deficiencies will have Serum B12 <200 pg/mL. Specimen Serum Performing Organization Address [facility] P mlaena Number [facility] [place] [address] PATHOLOGY AND GENOMIC MEDICINE [address] * COVID-19 qualitative PCR (01/08/2020 2:00 PM AIR CONDITIONING MANAGER) Only the most recent of 2 results within the time period is included. Pathologist [facility] Interpretation Negative results do not HICKS preclude 2019-nCoV infection RELIGIOUS and should not be used as the HOSPITAL sole basis for treatment or other patient management decisions. Negative results must be combined with clinical observations, patient history, and epidemiological information. COVID-19 Not-Detected Not-Detected [place] qualitative PCR RELIGIOUS result HOSPITAL COVID-19 See link below for PDF Lab [place] qualitative PCR ReportComment: Case Number: RELIGIOUS [id number] HOSPITAL Specimen Nasopharyngeal swab Performing Organization Address [facility] P malena Number [facility] DEPARTMENT OF [address] [place] [address] PATHOLOGY AND GENOMIC MEDICINE [address] * Lactic acid level (01/08/2020 2:00 PM AIR CONDITIONING MANAGER) Only the most recent of 2 results within the time period is included. [facility] Lactic acid 1.8 0.5 - 2.2 mmol/L [facility] Specimen Blood Performing Organization Address City/[facility] P malena Number [facility] [place] [address] PATHOLOGY AND GENOMIC MEDICINE [address] * CT Abdomen Pelvis W Contrast (01/08/2020 11:05 AM AIR CONDITIONING MANAGER) Only the most recent of 3 results within the time period is included. Specimen Narrative Performed At EXAMINATION: CT ABDOMEN PELVIS W CONTRAST HM [facility] NT CLINICAL HISTORY: endometriosis and c olonic fistula TECHNIQUE: Multiple axial images of the abdomen and pelvis were obtained following intravenous administration of iodinated contrast. Sagittal and coronal computerized reformatted images were al so obtained.. All CT images were acquired using radiation dose lowering technique with automated exposure control and / or iterative reconstruction. COMPARISON: CT abdomen and pelvis 10/31 IMPRESSION: ABDOMEN: 1. Lung bases are clear. 2.Scattered colonic diverticula. The di stal esophagus is distended with fluid, which may indicate dysmotility and or g astroesophageal reflux. No hiatal hernia identified however. 3.The stomach is moderately distended w ith fluid likely accounting for the findings of the esophagus. Bowel loop s how no evidence of obstruction or acute inflammation. 4.No colonic fistula is identified. Tresa luation limited by collapsed and unopacified state. Otherwise grossly un remarkable. 5.Cholecystectomy. Focal fatty infiltra tion in hepatic segment 4. Liver otherwise unremarkable. 6.Bile ducts, pancreas, spleen, adrenal s, abdominal aorta demonstrate nothing unusual. 7.Heterogeneous enhancement in the kidn eys bilaterally, with trace left perinephric fluid and mild stranding, i ndicative of bilateral pyelonephritis, worse on the left. Follow-up to ensure resolution recommended. 8.Subcentimeter hypodensities are likel y cysts. No hydronephrosis on either side. PELVIS: 1. No free fluid or lymphadenopathy kemal ntified within the abdomen or pelvis. 2.Hysterectomy. 3.Urinary bladder is distended arising out of the pelvic inlet. Patient may benefit from Jimenez catheter decompressi on if unable to void spontaneously. 4.Posttraumatic or postsurgical deformi ty in the left anterior superior iliac spine stable. Visualized bones show no suspicious lesion. SUMMARY: No colonic fistula is identified. Bilateral pyelonephritis slightly worse on the left. Follow-up to ensure resolution recommended. Gastric and distal esophageal distentio n likely gastroesophageal reflux, which may indicate gastritis with a mild ileu s. Follow-up to ensure resolution or endoscopy correlation advised. Distended urinary bladder consider Fole y and other findings as above [facility]-[id number] Procedure Note Interface, Radiology Results Incoming - 01/08/2020 11:29 AM AIR CONDITIONING MANAGER EXAMINATION: CT ABDOMEN PELVIS W CONTRAST CLINICAL HISTORY: endometriosis and colonic fistula TECHNIQUE: Multiple axial images of the abdomen and pelvis were obtained following intravenous administration of iodinated contrast. Sagittal and coronal computerized reformatted images were also obtained.. All CT images were acquired using radiation dose lowering technique with automated exposure control and / or iterative reconstruction. COMPARISON: CT abdomen and pelvis 11/26/2019 IMPRESSION: ABDOMEN: 1. Lung bases are clear. 2.Scattered colonic diverticula. The dis rocio esophagus is distended with fluid, which may indicate dysmotility and or gastroesophageal reflux. No hiatal hernia identified however. 3.The stomach is moderately distended wi th fluid likely accounting for the findings of the esophagus. Bowel loop show no evidence of obstruction or acute inflammation. 4.No colonic fistula is identified. Eval uation limited by collapsed and unopacified state. Otherwise grossly unremarkable. 5.Cholecystectomy. Focal fatty infiltrat ion in hepatic segment 4. Liver otherwise unremarkable. 6.Bile ducts, pancreas, spleen, adrenals , abdominal aorta demonstrate nothing unusual. 7.Heterogeneous enhancement in the kidne ys bilaterally, with trace left perinephric fluid and mild stranding, indicative of bilateral pyelonephritis, worse on the left. Follow-up to ensure resolution recommended. 8.Subcentimeter hypodensities are likely cysts. No hydronephrosis on either side. PELVIS: 1. No free fluid or lymphadenopathy iden tified within the abdomen or pelvis. 2.Hysterectomy. 3.Urinary bladder is distended arising o ut of the pelvic inlet. Patient may benefit from Jimenez catheter decompression if unable to void spontaneously. 4.Posttraumatic or postsurgical deformit y in the left anterior superior iliac spine stable. Visualized bones show no suspicious lesion. SUMMARY: No colonic fistula is identified. Bilateral pyelonephritis slightly worse on the left. Follow-up to ensure resolution recommended. Gastric and distal esophageal distention likely gastroesophageal reflux, which may indicate gastritis with a mild ileus. Follow-up to ensure resolution or endoscopy correlation advised. 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 Grayscale and color Doppler imaging obt ained. IMPRESSION: Sensitivity of examination decreased wi thout supplemental transvaginal imaging. Hysterectomy. Neither ovary visualized, reportedly removed bilaterally. The urinary bladder is distended otherw ise unremarkable. No free fluid or fluid collection ident ified. SUMMARY: 1.Hysterectomy and bilateral oophorecto my. 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 Grayscale and color Doppler imaging obtained. IMPRESSION: Sensitivity of examination decreased without supplemental transvaginal imaging. Hysterectomy. Neither ovary visualized, reportedly removed bilaterally. The urinary bladder is distended otherwise unremarkable. No free fluid or fluid collection identified. SUMMARY: 1.Hysterectomy and bilateral oophorectom y. No abnormality detected [facility]-[id number] Performing Organization Address City/State/ZIP Code P malena Number [facility] [address] [place] [address] * Urinalysis screen and microscopy, with reflex to culture (01/08/2020 9:14 AM AIR CONDITIONING MANAGER) Only the most recent of 6 results within the time period is included. Specimen site Clean catch [facility] Color, UA Straw [facility] Appearance, UA Hazy [facility] Specific 1.011 1.001 - 1.035 [place] [facility] pH, UA 6.0 5.0 - 8.5 [facility] Protein, UA 2+ (A) Negative [facility] Glucose, UA 1+ (A) Negative [facility] Ketones, UA Negative Negative [facility] Bilirubin, UA Negative Negative [facility] Blood, UA Small (A) Negative [facility] Nitrite, UA Negative Negative [facility] Urobilinogen, <2.0 <2.0 [facility] Leukocyte Negative Negative [place] esterase, [facility] Epithelial 4 /HPF [place] cells, [facility] WBC, UA 1 0 - 4 /HPF [facility] RBC, UA 7 (H) 0 - 5 /HPF [facility] Bacteria, UA Few None seen [facility] Yeast, UA None seen [facility] Yeast with None seen [place] [facility] Specimen Urine Performing Organization Address City/[facility] Code P malena Number [facility] [place] [address] PATHOLOGY AND GENOMIC MEDICINE [address] * Urine culture (01/08/2020 9:14 AM AIR CONDITIONING MANAGER) Only the most recent of 6 results within the time period is included. Urine culture SEE COMMENTComment: [place] Bacteriuria screen negative. [facility] Specimen Performing Organization Address City/[facility] [place] [address] PATHOLOGY AND GENOMIC MEDICINE [address] * Lipase level (01/08/2020 9:14 AM AIR CONDITIONING MANAGER) Only the most recent of 9 results within the time period is included. Lipase 11 (L) 13 - 60 U/L [facility] Specimen Plasma Performing Organization Address City/[facility] P malena Number [facility] [place] [address] PATHOLOGY AND GENOMIC MEDICINE [address] * CRITICAL CARE (01/08/2020 8:49 AM AIR CONDITIONING MANAGER) Narrative Performed At Sameer Zapata DO 01/08/2020 9:23 PM Critical Care Performed by: Sameer Zapata DO Authorized by: Sameer Zapata DO Critical care provider statement: Critical care time (minutes): 35 Critical care time was exclusive of: Teaching time Critical care was necessary to treat or prevent imminent or life-threatening deterioration of the f ollowing conditions: Sepsis Critical care was time spent personal ly by me on the following activities: Development of treatment plan with patient or surrogate, discussions with consultants, examinati on of patient, evaluation of patient's response to treatment, interp retation of cardiac output measurements, obtaining history from pa tient or surrogate, ordering and review of radiographic studies, orderin g and review of laboratory studies, ordering and performing treatments and interventions, pulse oximetry, re-evaluation of patient's condition an d review of old charts Jer 'yes' if you are taking over cri tical care for this patient from another provider.: no * XR Abdomen Acute Inc Chest (12/26/2019 10:50 PM CDT) Specimen Narrative Performed At Examination: XR ABDOMEN ACUTE INC CHEST 1V RADI ANT Clinical history: "Nausea vomiting" Comparison: 10/02/2019 IMPRESSION: The bowel gas pattern is nonspecific. There is minimal bilateral lower lung atelectasis. Heart size is w ithin normal limits. Right lateral iliac deformity is seen. Surgical clips are s een in the right upper quadrant. [facility] Procedure Note Hm Interface, Radiology Results Incoming - 12/26/2019 11:34 PM CDT Examination: XR ABDOMEN ACUTE INC CHEST 1V Clinical history: "Nausea vomiting" Comparison: 10/02/2019 IMPRESSION: The bowel gas pattern is nonspecific. There is minimal bilateral lower lung atelectasis. Heart size is within normal limits. Right lateral iliac deformity is seen. Surgical clips are seen in the right upper quadrant. [facility] Performing Organization Address City/State/ZIP Code P [place] Number [facility] [address] [place] [address] * CT Abdomen Pelvis Wo Contrast (11/26/2019 10:37 AM CDT) Specimen Narrative Performed At EXAM: RADIANT CT ABDOMEN PELVIS WO CONTRAST INDICATION: RLQ pain ho endometriosis COMPARISON: None. TECHNIQUE: Without administration of iodinated con trast intravenously, axial CT images of the abdomen and pelvis were obtained. C oronal and sagittal reformations were obtained. Iterative reconstruction and/ or automated exposure control techniques were employed to reduce radiation dose. FINDINGS: Drop Board Man: Persistent lytic focus lateral aspect l eft ilium with probable superimposed pathologic fracture. Surgical clips right upper quadrant. Radiodensity structures projecting over the right lower quadrant. Limited chest: Visualized portions of the esophagus, h eart, pericardium are normal. No adenopathy in visualized chest. Minimal linear opacity lateral aspect l ingula. Patchy groundglass opacities dependent bilateral lower lungs, likely secondary to hypoinflation. Breasts are unremarkable. Abdomen Subtle hypodensity liver adjacent falci form ligament, compatible with focal fatty infiltration, unchanged. Otherwis e, liver is normal. Status post cholecystectomy. No intrahe patic biliary dilatation. Common bile duct is unremarkable. Pancreas is normal. Spleen is normal. Bilateral adrenals are normal. Bilateral kidneys are normal. Stomach is minimally distended with flu id. Gastric wall is normal. Duodenum is normal. Remainder visualized small lazarus l is normal. Appendix is not definitively identified. Surgical material adjacent to the tip of the cecum. Findings favor prior appendectomy. Diverticula at the hepati c flexure and splenic flexure the colon. No evidence of acute diverticulitis. Pelvis: Bladder is moderately distended with ur ine. Bladder mack normal. Status post hysterectomy. Bilateral adn exa are unremarkable. Fluid was pelvis. Rectum is normal. Bilateral inguinal canals and ischiorec rocio fossa are normal. Vascular: Full evaluation of vascular structures limited by lack of intravenous contrast. No abdominal, pelvic, or inguinal adeno jigar. Musculoskeletal: Moderate linear opacity along the anter olateral aspect of the left iliac crest increasing conspicuity since prior exam . 3.0 x 2.0 cm centrally fluid density peripherally soft tissue density collec tion along the lateral margin of the left iliac crest, significantly decreasing from 5.5 x 3.8 cm, likely resolving hematoma. Persistent centrally lucent peripherall y sclerotic focus within the lateral margin of the superior left iliac crest . Post pathologic fracture with mild interval reduction and partial osseous fusion anteriorly. Mild arthrosis pubic symphysis. Mild degenerative changes of the lower thoracic spine. No suspicious osseous or soft tissue st ructures. IMPRESSION: 1. No CT evidence of acute abdominopelv ic abnormality to explain right lower quadrant pain. In particular, no eviden ce of right lower quadrant mass suggest endometriosis. Please note, however, th at noncontrast CT has limited sensitivity endometriosis. If pain persists and clinical suspicion fo r endometriosis is high, recommend further evaluation with contrast-enhanc ed MRI of the pelvis. 2. Healing fracture anterolateral kg n left iliac crest. Possible underlying radiolucent lesion. If indicated, this could be further evaluated on the MRI of the pelvis recommended above is well. 3. 3.0 x 2.0 cm collection along the la teral margin left iliac crest, decreasing from 5.5 x 3.8 cm previously, likely re solving hematoma. [id number] Procedure Note Hm Interface, Radiology Results Incoming - 11/26/2019 11:01 AM CDT EXAM: CT ABDOMEN PELVIS WO CONTRAST INDICATION: RLQ pain ho endometriosis COMPARISON: None. TECHNIQUE: Without administration of iodinated contrast intravenously, axial CT images of the abdomen and pelvis were obtained. Coronal and sagittal reformations were obtained. Iterative reconstruction and/or automated exposure control techniques were employed to reduce radiation dose. FINDINGS: Drop Board Man: Persistent lytic focus lateral aspect left ilium with probable superimposed pathologic fracture. Surgical clips right upper quadrant. Radiodensity structures projecting over the right lower quadrant. Limited chest: Visualized portions of the esophagus, heart, pericardium are normal. No adenopathy in visualized chest. Minimal linear opacity lateral aspect lingula. Patchy groundglass opacities dependent bilateral lower lungs, likely secondary to hypoinflation. Breasts are unremarkable. Abdomen Subtle hypodensity liver adjacent falciform ligament, compatible with focal fatty infiltration, unchanged. Otherwise, liver is normal. Status post cholecystectomy. No intrahepatic biliary dilatation. Common bile duct is unremarkable. Pancreas is normal. Spleen is normal. Bilateral adrenals are normal. Bilateral kidneys are normal. Stomach is minimally distended with fluid. Gastric wall is normal. Duodenum is normal. Remainder visualized small bowel is normal. Appendix is not definitively identified. Surgical material adjacent to the tip of the cecum. Findings favor prior appendectomy. Diverticula at the hepatic flexure and splenic flexure the colon. No evidence of acute diverticulitis. Pelvis: Bladder is moderately distended with urine. Bladder mack normal. Status post hysterectomy. Bilateral adnexa are unremarkable. Fluid was pelvis. Rectum is normal. Bilateral inguinal canals and ischiorectal fossa are normal. Vascular: Full evaluation of vascular structures limited by lack of intravenous contrast. No abdominal, pelvic, or inguinal adenopathy. Musculoskeletal: Moderate linear opacity along the anterolateral aspect of the left iliac crest increasing conspicuity since prior exam. 3.0 x 2.0 cm centrally fluid density peripherally soft tissue density collection along the lateral margin of the left iliac crest, significantly decreasing from 5.5 x 3.8 cm, likely resolving hematoma. Persistent centrally lucent peripherally sclerotic focus within the lateral margin of the superior left iliac crest. Post pathologic fracture with mild interval reduction and partial osseous fusion anteriorly. Mild arthrosis pubic symphysis. Mild degenerative changes of the lower thoracic spine. No suspicious osseous or soft tissue structures. IMPRESSION: 1. No CT evidence of acute abdominopelvi c abnormality to explain right lower quadrant pain. In particular, no evidence of right lower quadrant mass suggest endometriosis. Please note, however, that noncontrast CT has limited sensitivity endometriosis. If pain persists and clinical suspicion for endometriosis is high, recommend further evaluation with contrast-enhanced MRI of the pelvis. 2. Healing fracture anterolateral margin left iliac crest. Possible underlying radiolucent lesion. If indicated, this could be further evaluated on the MRI of the pelvis recommended above is well. 3. 3.0 x 2.0 cm collection along the lat eral margin left iliac crest, decreasing from 5.5 x 3.8 cm previously, likely resolving hematoma. [id number] Performing Organization Address [facility] [place] [address] * hCG qualitative, urine screen (11/26/2019 9:25 AM CDT) Only the most recent of 3 results within the time period is included. Pathologist [facility] hCG NegativeComment: Sensitivity [place] qualitative, of HCG test: 25 mIU/mL RELIGIOUS urine [facility] Specimen Urine Performing Organization Address [facility] [place] [address] PATHOLOGY AND [facility] MEDICINE [address] * Partial thromboplastin time, activated (10/22/2019 4:24 PM CDT) Only the most recent of 2 results within the time period is included. Pathologist [facility] PTT 30.9 23.0 - 36.0 sec [place] Comment: RELIGIOUS PTT therapeutic range for HOSPITAL unfractionated heparin is 61.0-112.0 seconds which corresponds to Anti-Xa 0.3-0.7 U/ml. Specimen Blood Performing Organization Address [facility] [place] [address] PATHOLOGY AND [facility] [address] * Prothrombin time with INR (10/22/2019 4:24 PM CDT) Only the most recent of 3 results within the time period is included. Prothrombin 12.9 11.5 - 14.5 sec [facility] INR 1.0 [place] Comment: RELIGIOUS The International Normalized HOSPITAL Ratio (INR) is a therapeutic monitoring tool for patients who are stable on oral anticoagulant therapy. An INR of 2.0-3.0 is suggested for deep vein thrombosis/pulmonary embolism. Specimen Blood Performing Organization Address City/[facility] P [place] Number [facility] DEPARTMENT OF [address] [place] [address] PATHOLOGY AND [facility] [address] * Transferrin level (10/03/2019 4:00 AM CDT) Transferrin 358 200 - 360 mg/dL [facility] Specimen Blood Performing Organization Address [facility] P [place] Number [facility] DEPARTMENT OF [address] [place] [address] PATHOLOGY AND GENOMIC MEDICINE [address] * XR Chest 1 Vw Portable (10/02/2019 8:20 AM CDT) Specimen Narrative Performed At EXAMINATION: XR CHEST 1 VW PORTABLE [facility] CLINICAL HISTORY: sob COMPARISON: 05/02/2018 IMPRESSION: Heart size is normal. There are reticul ar opacities within the right lung base. These findings may reflect atelectasis or possibly early pneumonia. Follow-up is advised. There is no consolidation in t he left lung. There is no significant pleural effusion or pneumothorax. Osseous structures are intact. [id number] Procedure Note Interface, Radiology Results Incoming - 10/02/2019 8:53 AM CDT EXAMINATION: XR CHEST 1 VW PORTABLE CLINICAL HISTORY: sob COMPARISON: 05/02/2018 IMPRESSION: Heart size is normal. There are reticular opacities within the right lung base. These findings may reflect atelectasis or possibly early pneumonia. Follow-up is advised. There is no consolidation in the left lung. There is no significant pleural effusion or pneumothorax. Osseous structures are intact. [id number] Performing Organization Address [facility] [place] [address] * Creatine kinase, total (CPK) (10/02/2019 5:55 AM CDT) Only the most recent of 2 results within the time period is included. Creatine kinase 113 26 - 192 U/L [facility] Specimen Performing Organization Address [facility] P [place] Number [facility] [place] [address] PATHOLOGY AND GENOMIC MEDICINE [address] * Urine drugs of abuse screen (10/02/2019 5:00 AM CDT) Amphetamine Negative [place] screen, urine [facility] Barbiturate Negative [place] screen, urine [facility] Benzodiazepine Positive (A) [place] screen, urine [facility] Cocaine screen, Negative [place] urine [facility] Methadone Negative [place] metabolite RELIGIOUS (EDDP), urine [facility] Opiates screen, Positive (A) [place] urine [facility] Oxycodone Negative [place] screen, urine [facility] Phencyclidine Negative [place] screen, urine [facility] Tricyclic Negative [place] screen, urine [facility] Cannabinoid Positive (A) [place] screen, urine Comment: RELIGIOUS Drug screen minimum HOSPITAL concentration of detectability Amphetamines 1000 ng/mL Barbiturates 200 ng/mL Benzodiazepines 300 ng/mL Cocaine 300 ng/mL Methadone 300 ng/mL Opiates 300 ng/mL Oxycodone 300 ng/mL Phencyclidine 25 ng/mL Cannabinoids 50 ng/mL Tricyclics 1000 ng/mL Results are from screening tests and should only be used for medical evaluation. Drug testing for legal purposes requires definitive (or confirmatory) testing methods, which are available upon request. Contact the laboratory if definitive testing is required. Specimen Urine Performing Organization Address City/[facility] P [place] Number [facility] [place] [address] PATHOLOGY AND GENOMIC MEDICINE [address] * XR Pelvis 3+ Vw (10/02/2019 12:30 AM CDT) Specimen Narrative Performed At EXAMINATION: XR PELVIS 3 VW [facility] CLINICAL HISTORY: fracture on CT COMPARISON: CT abdomen/pelvis dated IMPRESSION: Acute fracture of the left iliac crest is identified, better seen and detailed on CT dated 10/01/2019. Visualized joint spaces are anatomic. Contrast opacifies the ureters and blad noreen. [facility]-[id number] Procedure Note Hm Interface, Radiology Results Incoming - 10/02/2019 12:48 AM CDT EXAMINATION: XR PELVIS 3 VW CLINICAL HISTORY: fracture on CT COMPARISON: CT abdomen/pelvis dated 10/01/2019 IMPRESSION: Acute fracture of the left iliac crest is identified, better seen and detailed on CT dated 10/01/2019. Visualized joint spaces are anatomic. Contrast opacifies the ureters and bladder. [facility]-[id number] Performing Organization Address [facility] P mal[place] Number [facility] [address] [place] [address] * ECG 12 lead (10/01/2019 10:11 PM CDT) Only the most recent of 2 results within the time period is included. Ventricular 86 [facility] rate Atrial rate 86 [facility] ID interval 180 [facility] QRSD interval 90 [facility] QT interval 366 [facility] QTC interval 437 [facility] P axis 1 2 [facility] QRS axis 1 38 [facility] T wave axis 46 [facility] EKG impression Normal sinus rhythm-Normal [facility] MUSE ECG-In automated comparison with ECG of 31-MAR-2019 04:56,-No significant change was found- Specimen Narrative Performed At This result has an attachment that is n ot available. Performing Organization Address [facility] P [place] Number [facility] MUSE [address] [place] [address] * hCG qualitative, serum screen (03/31/2019 5:10 AM AIR CONDITIONING MANAGER) Only the most recent of 2 results within the time period is included. hCG Negative [place] qualitative, Comment: CRUZ VO serum EXP:07-29-2020 [facility] [id number] Control: PASS Specimen Blood Performing Organization Address City/State/ZIP Code [place] [address] [address] [place], [place] [address] PATHOLOGY AND GENOMIC [place] [address] [place] [address] [facility] * ECG ED Preliminary Interpretation - Not an Order (03/31/2019 4:59 AM AIR CONDITIONING MANAGER) Narrative Performed At Sivakumar Wise MD 03/31/2019 9:15 PM ECG ED Preliminary Interpretation - Not an Order Performed by: Sivakumar Wise MD Authorized by: Sivakumar Wise MD ECG reviewed by ED Physician in the abs ence of a retail sales advisor: yes Interpretation: Interpretation: normal Rate: ECG rate: 94 ECG rate assessment: normal Rhythm: Rhythm: sinus rhythm Ectopy: Ectopy: none QRS: QRS axis: Normal QRS intervals: Normal Conduction: Conduction: normal ST segments: ST segments: Normal T waves: T waves: normal * XR Abdomen 1 Vw (02/17/2019 9:27 PM AIR CONDITIONING MANAGER) Specimen Narrative Performed At EXAMINATION: XR ABDOMEN 1 VW [facility] CLINICAL HISTORY: Abd pain unspecif ied COMPARISON: September 07, 2017 FINDINGS: The bowel gas pattern is nonspecific. N o pathologic masses or calcifications are identified. The lung bases are free of acute disease. Regional skeletal structures are within normal limits. A 0.3 cm calcification in the right side of the pelvis has been shown by previous CT scan to represent a phlebolith. IMPRESSION: Unremarkable abdominal radiograph. [facility]-[id number] Procedure Note Hm Interface, Radiology Results Incoming - 02/17/2019 9:45 PM AIR CONDITIONING MANAGER EXAMINATION: XR ABDOMEN 1 VW CLINICAL HISTORY: Abd pain unspecified COMPARISON: September 07, 2017 FINDINGS: The bowel gas pattern is nonspecific. No pathologic masses or calcifications are identified. The lung bases are free of acute disease. Regional skeletal structures are within normal limits. A 0.3 cm calcification in the right side of the pelvis has been shown by previous CT scan to represent a phlebolith. IMPRESSION: Unremarkable abdominal radiograph. [facility]-[id number] Performing Organization Address City/State/ZIP Code [place] Number [facility] [address] [place] [address] after 01/22/2019 Insurance Type Payer Benefit Subscriber ID Effective Phone Address Plan / Dates Group PPO BCBS BCBS [id number] CHOICE resent PPO/[employer] PPO [id number] Advance Directives For more information, please contact: [phone] Patient Developing Machine Tender Explanation Type Date Recorded Advance Directives, 06/21/2016 8:01 AM Living Will and Medical Power of Orthopedic Tech Date Inactivated Comments Code Status Date Activated 10/01/2017 4:07 PM Full Code 09/29/2017 3:54 PM Code Status decision reached by: Patient
--- OUTSIDE RECORDS SUMMARY | 2020-01-23 07:41 | XMS REPORT | Clinical Summary ---
Author Author [facility] Organization [facility] Address Unknown Phone Unavailable Care Team Providers Care Assistant Track Coach Name Role Phone Pcp, No PCP Unavailable Allergies Comments Active Allergy Reactions Severity Noted Date Jayson Ballard 01/31/2019 Medications End Date Status Medication Sig Dispensed Refills Start Date Active omeprazole (PRILOSEC) 40 Take 40 mg by 0 MG capsule mouth 2 (two) times daily. Active lamoTRIgine (LAMICTAL) 25 Take 25 mg by 0 MG tablet mouth every evening. Active ALPRAZolam (XANAX) 2 MG Take 1 tablet 0 tablet by mouth 3 (three) times daily. Active levETIRAcetam (KEPPRA) Take 1,000 mg 0 1000 MG tablet by mouth 2 (two) times daily . Active metoprolol (TOPROL-XL) 25 Take 25 mg by 0 MG 24 hr tablet mouth daily. Active sertraline (ZOLOFT) 100 Take 100 mg 0 MG tablet by mouth daily. Active gabapentin (NEURONTIN) every 6 (six) 0 100 MG capsule hours . Active ondansetron (ZOFRAN) 4 MG Take 1 tablet 60 tablet 0 tablet (4 mg total) 0 by mouth 3 (three) times daily as needed for Nausea for up to 30 doses. Active traMADoL (ULTRAM) 50 mg Take 1 tablet 20 tablet 0 tablet (50 mg total) 0 by mouth every 6 (six) hours as needed for up to 20 doses. Max Daily Amount: 200 mg Active hydrOXYzine (ATARAX) 25 nightly . 0 MG tablet Active ketorolac (TORADOL) 10 mg Take 10 mg by 0 / tablet mouth every 8 0 (eight) hours as needed . 01/31/2019 Discontinued (Error) dicyclomine (BENTYL) 20 Take 20 mg by 0 mg tablet mouth 3 6 (three) times daily as needed (For abdominal pain/spasm.) . 03/19/2019 Discontinued ondansetron (ZOFRAN-ODT) Take 4 mg by 0 4 MG disintegrating mouth every 6 tablet (six) hours as needed for Nausea. 02/18/2019 Discontinued (Error) promethazine (PHENERGAN) Take 25 mg by 0 25 MG tablet mouth every 6 (six) hours as needed for Nausea. 07/29/2019 Discontinued promethazine (PHENERGAN) Place 25 mg 0 25 MG suppository rectally every 6 (six) hours as needed for Nausea. 01/31/2019 Discontinued (Error) amitriptyline (ELAVIL) 25 Take 25 mg by 0 MG tablet mouth daily. 01/31/2019 Discontinued (Error) estradiol (VIVELLE-DOT) Place 1 patch 2 0.1 mg/24 hr patch onto the skin 8 twice a week. 01/31/2019 Discontinued (Error) HYDROcodone-acetaminophen Take 1 tablet 0 (NORCO 10-325) 10-325 mg by mouth 8 per tablet every 6 (six) hours as needed for Pain . 01/31/2019 Discontinued (Error) hyoscyamine Take 1 tablet 0 (ANASPAZ,LEVSIN) 0.125 mg by mouth tablet every 4 (four) hours as needed for Cramping. 01/31/2019 Discontinued (Error) gabapentin (NEURONTIN) Take 1 60 capsule 0 100 MG capsule capsule (100 9 mg total) by mouth 3 (three) times daily. 01/31/2019 Discontinued (Error) gabapentin (NEURONTIN) Take 1 60 capsule 0 100 MG capsule capsule (100 9 mg total) by mouth 3 (three) times daily. 09/09/2019 Discontinued (Reorder) traMADol (ULTRAM) 50 mg Take 1 tablet 15 tablet 0 tablet (50 mg total) 9 by mouth every 6 (six) hours as needed for up to 15 doses. Max Daily Amount: 200 mg 03/19/2019 Discontinued (Reorder) ondansetron (ZOFRAN-ODT) Take 1 tablet 12 tablet 0 4 MG disintegrating (4 mg total) 9 tablet by mouth every 8 (eight) hours as needed for up to 12 doses. 06/22/2019 Discontinued (Error) ondansetron (ZOFRAN-ODT) Take 1 tablet 15 tablet 0 4 MG disintegrating (4 mg total) 0 tablet by mouth every 8 (eight) hours as needed for up to 12 doses. 06/23/2019 Discontinued (Reorder) ondansetron (ZOFRAN) 4 MG Take 1 tablet 10 tablet 0 tablet (4 mg total) 0 by mouth 3 (three) times daily as needed for Nausea for up to 10 doses. 06/22/2019 Discontinued (Error) traMADol (ULTRAM) 50 mg Take 1 tablet 15 tablet 0 tablet (50 mg total) 0 by mouth every 6 (six) hours as needed for up to 15 doses. Max Daily Amount: 200 mg 06/22/2019 Discontinued (Error) gabapentin (NEURONTIN) 0 100 MG capsule 06/23/2019 Discontinued (Reorder) ondansetron (ZOFRAN) 4 MG Take 1 tablet 60 tablet 0 tablet (4 mg total) 0 by mouth 3 (three) times daily as needed for Nausea for up to 30 doses. 08/05/2019 promethazine (PHENERGAN) Take 0.5 10 tablet 0 0 25 MG tablet tablets (12.5 0 mg total) by mouth every 6 (six) hours as needed for Nausea for up to 7 days. 08/14/2019 ondansetron (ZOFRAN-ODT) Take 1 tablet 20 tablet 0 4 MG disintegrating (4 mg total) 0 tablet by mouth every 8 (eight) hours as needed for Nausea for up to 7 days. 09/09/2019 Discontinued (Reorder) traMADoL (ULTRAM) 50 mg Take 1 tablet 20 tablet 0 tablet (50 mg total) 0 by mouth every 6 (six) hours as needed for up to 20 doses. Max Daily Amount: 200 mg Active Problems Problem Noted Date Nausea and vomiting, intractability of vomiting not s pecified, unspecified 11/28/2019 vomiting type Intractable pain 10/17/2019 Closed fracture of distal end of right radius, unspec ified fracture 09/01/2019 morphology, initial encounter Acute pain of right wrist 09/01/2019 Closed fracture of right radius 09/01/2019 Chronic abdominal pain 09/01/2019 Intractable abdominal pain 06/22/2019 Mechanical complication of internal orthopedic device 02/06/2019 Intractable cyclical vomiting with nausea 01/16/2016 Recurrent dislocation of forearm joint, right 2015 Fracture dislocation of wrist joint, right, with nonu nion, subsequent 04/16/2015 encounter Irritable bowel syndrome 04/16/2015 [facility] compl of int fix of bones of hand and fingers, s equela 03/14/2015 Mechanical complication internal fixation device like nail, plate, ysabel, 12/27/2014 subsequent encounter Arthrodesis malunion, subsequent encounter 5 Subluxation of distal radioulnar joint of right wrist , subsequent encounter 11/20/2014 Painful orthopaedic hardware 11/20/2014 Overview: S/p arthrodesis for distal radius resec tion. 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 Encounters Care Team Description Date Type Specialty Xavier Trammell MD Athreya, Khannan Kameshvaran, MD Asim, MD Roz Nausea and vomiting, intractability of v omiting not specified, unspecified vomiting type (Primary Dx); Chronic abdominal pain; Giant cell tumor; Intractable abdominal pain; Intractable cyclical vomiting with nausea; Irritable bowel syndrome without diarrhea; Malingering; Irritable bowel syndrome with diarrhea 11/28/2019 Emergency General Internal Ny dicine - 11/29/2019 11/28/2019 Travel Kaur Hernandez MD Alhuzali, Nader A Heinen, Diana Dewitt MD Intractable abdominal pain (Primary Dx); Chronic abdominal pain; Generalized abdominal pain; Intractable pain; Nausea; Intractable vomiting with nausea, unspecified vomiting type 10/17/2019 Hospital General Internal Ny dicine - Encounter 10/19/2019 10/17/2019 Travel Gregory Chery MD Right sided abdominal pain (Primary Dx); Nausea and vomiting, intractability of vomiting not specified, unspecified vomiting type 10/16/2019 Emergency Emergency Medicine 10/16/2019 Travel John Parish II Lower abdominal pain (Primary Dx) 09/30/2019 Emergency Emergency Medicine 09/30/2019 Travel Renata Liu PA Elevated liver enzymes (Primary Dx) 09/22/2019 Orders Only Hepatology Katlin Mason MA Appointment (zoom) 09/20/2019 Telephone Hepatology Cornelio Shields MD Fernandez, Faustina Mcdaniels MD 09/06/2019 Anesthesia Event Jorge White MD ORIF,RADIUS 09/06/2019 Surgery Owen, DO Piero Lilly, MD Chance Chua, MD Jose Lovell, Loren Coleman MD Closed fracture of distal end of right r adius, unspecified fracture morphology, initial encounter (Primary Dx); Acute pain of right wrist; Bone, giant cell tumor; Irritable bowel syndrome without diarrhea; Benign essential HTN; Bipolar affective disorder, remission status unspecified (HCC); Seizure disorder (HCC); Arthrodesis malunion, subsequent encounter; Recurrent dislocation of forearm joint, right; Subluxation of distal radioulnar joint of right wrist, subsequent encounter; Class 1 obesity due to excess calories without serious comorbidity with body mass index (BMI) of 32.0 to 32.9 in adult; Abnormal liver enzymes; Giant cell tumor; Intractable cyclical vomiting with nausea; Pain, postoperative, acute 09/01/2019 [facility] General Internal Ny dicine - Encounter 09/09/2019 09/01/2019 Travel John Parish II Generalized abdominal pain (Primary Dx); Non-intractable vomiting with nausea, unspecified vomiting type 08/07/2019 Emergency Emergency Medicine 08/07/2019 Travel Gregory Chery MD Left lower quadrant pain (Primary Dx); Endometriosis; Non-intractable vomiting with nausea, unspecified vomiting type 07/29/2019 Emergency Emergency Medicine 07/29/2019 Travel Dajuan Shepard MD Heinen, Allison P., MD Intractable abdominal pain (Primary Dx); Retching 06/22/2019 [facility] Internal Ny dicine - 06/23/2019 06/22/2019 Travel Roque Brenner MD Acute abdominal pain (Primary Dx); Non-intractable vomiting with nausea, unspecified vomiting type; History of endometriosis; Morbidly obese (HCC) 03/27/2019 Emergency Emergency Medicine 03/27/2019 Travel Zoie Cook MD Non-intractable vomiting with nausea, un specified vomiting type (Primary Dx); Chronic pelvic pain in female 03/19/2019 Emergency Emergency Medicine 03/19/2019 Orders Only General Internal Ny dicine Da Olivo MD Generalized abdominal pain (Primary Dx); Endometriosis 02/18/2019 Emergency Emergency Medicine 02/18/2019 Travel Renetta Pagan MD Zemrau, Ludwig, LAVELL 02/06/2019 Anesthesia Event Jorge White MD FLAP,ROTATIONAL-HAND 02/06/2019 Surgery Jorge White MD 02/06/2019 [facility] General Internal Ny dicine - Encounter 02/07/2019 Jorge White MD 01/31/2019 Hospital Pre-Admission Testi ng Encounter 01/31/2019 Orders Only General Internal Ny dicine after 01/22/2019 Family History Medical History Relation Name Comments Early Brother Heart disease Brother Cancer Maternal Aunt Diabetes Maternal Grandmother Asthma Mother Cancer Mother Breast Relation Name Status Comments Brother Maternal Aunt Maternal Grandmother Mother Social History Date Tobacco Use Types Packs/Day Years Used Never Smoker Smokeless Tobacco: Never Used Drinks/Week oz/Week Comments Alcohol Use No Sex Assigned at Date Recorded Not on file Last Filed Vital Signs Reading Time Taken Comments Vital Sign 129/84 11/29/2019 10:08 AM CDT Blood Pressure 85 11/29/2019 10:08 AM CDT Pulse 36.8 C (98.2 F) 11/29/2019 10:08 AM CDT Temperature 18 11/29/2019 10:08 AM CDT Respiratory Rate 98% 11/29/2019 10:08 AM CDT Oxygen Saturation - - Inhaled Oxygen Concentration 81.2 kg (179 lb) 11/28/2019 7:01 AM CDT Weight 154.9 cm (5' 1") 11/28/2019 7:01 AM CDT Height 33.82 11/28/2019 7:01 AM CDT Body Mass Index Plan of Treatment Health Maintenance Due Date Last Done Comments LIPID PANEL 2008 CERVICAL CANCER SCREENING 2009 PAP ONLY (Age 21-65) INFLUENZA VACCINE (#1) 2019 Implants Device Identifier Shelf Expiration Date Model / Serial / L ot Implanted Type Area Manufactur er 06/08/2016 136700G / [id number] / Dbx Putty,1cc Pretreat - Bone Right: Wrist OSWALDO RODRIGEZ [id number] LETAL Implanted: Qty: 1 on 03/14/2015 by TRANSPLANT Victoria Harry MD at [facility] Description:[id number] 223.412 / / [id number] Metaphyseal Plate Fracture/F Right: Wrist SYNTHES Implanted: Qty: 1 on 10/11/2014 by ixation Jorge Whittaker MA, MD at [facility] 202.816 / / Screw,Cortex Selftap 2.7x16mm - Fracture/F Right: Wrist SYNTHES [id number] ixation TRUMA Implanted: Qty: 1 on 10/11/2014 by Jorge White MD at [facility] 202.820 / / Screw,Cortex Selftap 2.7x20mm - Fracture/F Right: Wrist SYNTHES [id number] ixation TRUMA Implanted: Qty: 3 on 10/11/2014 by Jorge White MD at [facility] 202.822 / / Screw,Cortex Selftap 2.7x22mm - Fracture/F Right: Wrist SYNTHES [id number] ixation TRUMA Implanted: Qty: 1 on 10/11/2014 by Jorge White MD at [facility] 204.816 / / Screw,Cortex Selftap 3.5x16mm - Fracture/F Right: Wrist SYNTHES [id number] ixation TRUMA Implanted: Qty: 3 on 10/11/2014 by Jorge White MD at [facility] 204.814 / / Screw,Cortex Selftap 3.5x14mm - Fracture/F Right: Wrist SYNTHES [id number] ixation TRUMA Implanted: Qty: 2 on 10/11/2014 by Jorge White MD at [facility] Description:1 in and out 292.12 / / Wire,Rc 1.25mm X 150mm - Fracture/F Right: Wrist SYNTHES [id number] ixation TRUMA Implanted: Qty: 1 on 10/11/2014 by Jorge White MD at [facility] 1646-10-000 / / K-Wire,.062 4 - [id number] Fracture/F Right: Wrist DEP UY Implanted: Qty: 2 on 12/13/2014 by ixation SPI Victoria Echavarria MD at [facility] 05/02/2016 [id number] / [id number] / Tiss Live Dbx Putty 5cc [id number] - IMPLANTS Right: Wrist MUSCULOSKE [id number] LETAL Implanted: Qty: 1 on 04/16/2015 by Deshawn Sands MD at [facility] Description:[id number] 201.764 / / Scr Crtx Lcp St T8 2.4x14 Ns IMPLANTS Right: Arm S YNTHES:SY 201.764 - [id number] Lower NTHES [place] Implanted: Qty: 2 on 09/06/2019 by Jorge White MD at [facility] 201.766 / / Scr Crtx Lcp St T8 2.4x16 Ns IMPLANTS Right: Arm S YNTHES:SY 201.766 - [id number] Lower NTHES [place] Implanted: Qty: 3 on 09/06/2019 by Jorge White MD at [facility] 201.768 / / Scr Crtx Lcp St T8 2.4x18 Ns IMPLANTS Right: Arm S YNTHES:SY 201.768 - [id number] Lower NTHES [place] Implanted: Qty: 1 on 09/06/2019 by Jorge White MD at [facility] 201.772 / / Scr Crtx Lcp St T8 2.4x22 Ns IMPLANTS Right: Arm S YNTHES:SY 201.772 - [id number] Lower NTHES [place] Implanted: Qty: 1 on 09/06/2019 by Jorge White MD at [facility] 09/11/2018 [id number] / [id number] / Tendon Achilles Calcan >=19.5 Tissue Right: Wrist MUSCULOSKE [id number] - [id number] Graft/Subs LETAL Implanted: Qty: 1 on 06/11/2015 by Victoria Harding MD at [facility] Explanted: (Quantity not on file) Description:[id number] 02.110.152 / / Lcp Wrist Fusion Plate Straight Right: Wrist Synth es Implanted: Qty: 1 on 04/16/2015 by Victoria Harry MD at [facility] 202.218 / / 2.7mm Locking Screws, Self-Tapping, Right: Wrist S ynthes With T8 Stardrive Recess Implanted: Qty: 1 on 04/16/2015 by Victoria Harry MD at [facility] 212.104 / / 3.5mm Locking Screws, Self-Tapping, Right: Wrist S ynthes With T15 Stardrive Recess Implanted: Qty: 1 on 04/16/2015 by Victoria Harry MD at [facility] 212.105 / / 3.5mm Locking Screws, Self-Tapping, Right: Wrist S ynthes With T15 Stardrive Recess Implanted: Qty: 1 on 04/16/2015 by Victoria Harry MD at [facility] 212.106 / / 3.5mm Locking Screws, Self-Tapping, Right: Wrist S ynthes With T15 Stardrive Recess Implanted: Qty: 1 on 04/16/2015 by Victoria Harry MD at [facility] 202.214 / / 2.7mm Locking Screws, Self-Tapping, Right: Wrist S ynthes With T8 Stardrive Recess Implanted: Qty: 1 on 04/16/2015 by Victoria Harry MD at [facility] 202.210 / / 2.7mm Locking Screws, Self-Tapping, Right: Wrist S ynthes With T8 Stardrive Recess Implanted: Qty: 1 on 04/16/2015 by Victoria Harry MD at [facility] 202.212 / / 2.7mm Locking Screws, Self-Tapping, Right: Wrist S ynthes With T8 Stardrive Recess Implanted: Qty: 1 on 04/16/2015 by Victoria Harry MD at [facility] 06/28/2016 [id number] / / [id number] Micro Quickanchor Right: Wrist MITEK Implanted: Qty: 2 on 06/11/2015 by SURGICAL Victoria Harry MD at [facility] 06/28/2016 [id number] / / [id number] Micro Quickanchor Right: Wrist MITEK Implanted: Qty: 2 on 06/11/2015 by SURGICAL Victoria Harry MD at [facility] 242.003S / / [id number] Lcp Straight Wrist Right: Wrist DEPUY Implanted: Qty: 1 on 09/06/2019 by Jorge White MD at [facility] 212.816 / / Locking Screw 2.4 Mm X 16 Mm Right: Arm Synthes Implanted: Qty: 1 on 09/06/2019 by Jorge Crisostomo MD at [facility] 212.814 / / Locking Screw 2.4 Mm X 14 Mm Right: Arm Synthes Implanted: Qty: 1 on 09/06/2019 by Jorge Crisostomo MD at [facility] 212.818 / / Locking Screw 2.4 Mm X 18 Mm Right: Arm Synthes Implanted: Qty: 1 on 09/06/2019 by Jorge Crisostomo MD at [facility] 212.820 / / Locking Screw 2.4 Mm X 20 Mm Right: Arm Synthes Implanted: Qty: 1 on 09/06/2019 by Jorge Crisostomo MD at [facility] Device Identifier Shelf Expiration Date Model / Serial / L ot Explanted Type Area Manufactur er 202.210 / / 2.7mm Locking Screws, Self-Tapping, Right: Wrist S ynthes With T8 Stardrive Recess Explanted: Qty: 1 by Victoria Harry MD at [facility] Procedures Comments Procedure Name Priority Date/Time Associated Diag nosis CBC W/PLT COUNT & AUTO Routine 11/29/2019 DIFFERENTIAL 3:39 AM CDT CBC W/PLT COUNT & AUTO Routine 11/29/2019 DIFFERENTIAL 3:39 AM CDT MAGNESIUM Routine 11/29/2019 3:39 AM CDT HEPATIC FUNCTION PANEL Routine 11/29/2019 3:39 AM CDT BASIC METABOLIC PANEL (7) Routine 11/29/2019 3:39 AM CDT SCREEN, URINE STAT 11/28/2019 5:13 PM CDT URINALYSIS W/ REFLEX STAT 11/28/2019 URINE CULTURE 5:13 PM CDT SARS-COV2/RT-PCR (HS & STAT 11/28/2019 REF LABS) 3:11 PM CDT CBC W/PLT COUNT & AUTO STAT 11/28/2019 DIFFERENTIAL 12:35 PM CDT CBC W/PLT COUNT & AUTO STAT 11/28/2019 DIFFERENTIAL 12:35 PM CDT LIPASE STAT 11/28/2019 12:25 PM CDT COMPREHENSIVE METABOLIC STAT 11/28/2019 PANEL 12:25 PM CDT SARS-COV2/RT-PCR ([facility] & STAT 10/17/2019 REF LABS) 1:07 PM CDT URINALYSIS W/ REFLEX STAT 10/17/2019 URINE CULTURE 12:[address] ABDOMEN/PELVIS WITH IV STAT 10/17/2019 CONTRAST 11:26 AM CDT CBC W/PLT COUNT & AUTO STAT 10/17/2019 DIFFERENTIAL 9:51 AM CDT HEPATIC FUNCTION PANEL STAT 10/17/2019 9:51 AM CDT LIPASE STAT 10/17/2019 9:51 AM CDT BASIC METABOLIC PANEL (7) STAT 10/17/2019 9:51 AM CDT CBC W/PLT COUNT & AUTO STAT 10/17/2019 DIFFERENTIAL 9:51 AM CDT MAGNESIUM STAT 10/16/2019 11:44 AM CDT PHOSPHORUS STAT 10/16/2019 11:44 AM CDT LACTIC ACID, VENOUS STAT 10/16/2019 11:44 AM CDT LIPASE STAT 10/16/2019 11:44 AM CDT COMPREHENSIVE METABOLIC STAT 10/16/2019 PANEL 11:44 AM CDT URINALYSIS W/ REFLEX STAT 10/16/2019 URINE CULTURE 11:12 AM CDT SCREEN, URINE STAT 10/16/2019 11:12 AM CDT CBC W/PLT COUNT & AUTO STAT 10/16/2019 DIFFERENTIAL 10:50 AM CDT CBC W/PLT COUNT & AUTO STAT 10/16/2019 DIFFERENTIAL 10:50 AM CDT COMPREHENSIVE METABOLIC STAT 09/30/2019 PANEL 3:46 AM CDT CBC W/PLT COUNT & AUTO STAT 09/30/2019 DIFFERENTIAL 2:13 AM CDT CBC W/PLT COUNT & AUTO STAT 09/30/2019 DIFFERENTIAL 2:13 AM CDT COMPREHENSIVE METABOLIC Routine 09/08/2019 PANEL 4:32 AM CDT COMPREHENSIVE METABOLIC Routine 09/07/2019 PANEL 3:22 AM CDT SARS-COV2/RT-PCR ([facility] & Routine 09/06/2019 REF LABS) 11:53 PM CDT ANESTHESIA PERIPHERAL Routine 09/06/2019 BLOCK 1:43 PM CDT FL FLUORO NON-SPECIFIC UP Routine 09/06/2019 TO 1 HOUR 1:00 PM CDT GRAFT,BONE ILIAC CREST 09/06/2019 Pathological f racture of 9:10 AM CDT left radius, initial encounter Special Needs (HAND TABLE, MINI C-ARM, TOURNIQUET , SYNTHES STANNING, LOCKING WRIST PLATE) PROCEDURE W/MINI C-ARM 09/06/2019 Pathological f racture of 9:10 AM CDT left radius, initial encounter Special Needs (HAND TABLE, MINI C-ARM, TOURNIQUET , SYNTHES STANNING, LOCKING WRIST PLATE) ORIF,RADIUS 09/06/2019 Pathological fractu re of 9:10 AM CDT left radius, initial encounter Special Needs (HAND TABLE, MINI C-ARM, TOURNIQUET , SYNTHES STANNING, LOCKING WRIST PLATE) COMPREHENSIVE METABOLIC Routine 09/06/2019 PANEL 4:53 AM CDT MAGNESIUM Routine 09/06/2019 4:53 AM CDT PHOSPHORUS Routine 09/06/2019 4:53 AM CDT CBC (HEMOGRAM ONLY) Routine 09/06/2019 4:53 AM CDT COMPREHENSIVE METABOLIC Routine 09/05/2019 PANEL 7:18 PM CDT MAGNESIUM Routine 09/05/2019 7:18 PM CDT PHOSPHORUS Routine 09/05/2019 7:18 PM CDT CBC (HEMOGRAM ONLY) Routine 09/05/2019 7:18 PM CDT IR NON-TUNNELED DIALYSIS Routine 09/05/2019 CATHETER INSERTION 5:25 PM CDT MITOCHONDRIAL AB TITER Routine 09/04/2019 1:23 PM CDT MITOCHONDRIAL AB SCREEN Routine 09/04/2019 1:23 PM CDT HERPES VIRUS ANTIBODY, Routine 09/04/2019 IGM 1:23 PM CDT HSV 1 AND 2 IGG Routine 09/04/2019 1:23 PM CDT CMV PCR, QUANTITATIVE Routine 09/04/2019 1:23 PM CDT EBV VIRAL LOAD Routine 09/04/2019 1:23 PM CDT ANTI-MITOCHONDRIAL AB, Routine 09/04/2019 REFLEX TO TITER 1:23 PM CDT ACTIN (SMOOTH MUSCLE) Routine 09/04/2019 ANTIBODY, IGG 1:23 PM CDT ANTI-NUCLEAR ANTIBODY Routine 09/04/2019 (SHAUNNA) 1:23 PM CDT CERULOPLASMIN Routine 09/04/2019 1:23 PM CDT ALPHA FETOPROTEIN (AFP), Routine 09/04/2019 TUMOR MARKER 4:45 AM CDT COMPREHENSIVE METABOLIC Routine 09/04/2019 PANEL 4:45 AM CDT MAGNESIUM Routine 09/04/2019 4:45 AM CDT PHOSPHORUS Routine 09/04/2019 4:45 AM CDT CBC (HEMOGRAM ONLY) Routine 09/04/2019 4:45 AM CDT FERRITIN Routine 09/04/2019 4:45 AM CDT IRON, TIBC, % SAT. Routine 09/03/2019 (WITHOUT FERRITIN) 5:53 PM CDT HEPATITIS A ANTIBODY, IGG Routine 09/03/2019 5:53 PM CDT HEPATITIS B CORE Routine 09/03/2019 ANTIBODY, TOTAL 5:53 PM CDT HEPATITIS B SURFACE Routine 09/03/2019 ANTIBODY 5:53 PM CDT [id number]\\, Routine 09/03/2019 SERUM 5:52 PM CDT MR ABDOMEN WITH & WITHOUT STAT 09/03/2019 IV CONTRAST 4:53 PM CDT COMPREHENSIVE METABOLIC Routine 09/03/2019 PANEL 2:34 AM CDT MAGNESIUM Routine 09/03/2019 2:34 AM CDT PHOSPHORUS Routine 09/03/2019 2:34 AM CDT CBC (HEMOGRAM ONLY) Routine 09/03/2019 2:34 AM CDT US ABDOMEN LIMITED Routine 09/02/2019 4:22 AM CDT HEPATIC FUNCTION PANEL Routine 09/02/2019 3:20 AM CDT MAGNESIUM Routine 09/02/2019 3:20 AM CDT PHOSPHORUS Routine 09/02/2019 3:20 AM CDT BASIC METABOLIC PANEL (7) Routine 09/02/2019 3:20 AM CDT CBC (HEMOGRAM ONLY) Routine 09/02/2019 3:20 AM CDT HEPATITIS PANEL, ACUTE Routine 09/02/2019 3:20 AM CDT PROTHROMBIN TIME/INR STAT 09/01/2019 12:47 PM CDT COMPREHENSIVE METABOLIC STAT 09/01/2019 PANEL 12:47 PM CDT CBC (HEMOGRAM ONLY) STAT 09/01/2019 12:47 PM CDT SARS-COV2/RT-PCR ([facility] & STAT 09/01/2019 REF LABS) 12:26 PM CDT XR WRIST RIGHT COMPLETE STAT 09/01/2019 (MIN 3 VIEWS) 8:37 AM CDT CBC W/PLT COUNT & AUTO STAT 08/07/2019 DIFFERENTIAL 11:44 AM CDT COMPREHENSIVE METABOLIC STAT 08/07/2019 PANEL 11:44 AM CDT CBC W/PLT COUNT & AUTO STAT 08/07/2019 DIFFERENTIAL 11:44 AM CDT URINALYSIS W/ REFLEX STAT 07/29/2019 URINE CULTURE 8:[address] ABDOMEN/PELVIS WITH IV STAT 07/29/2019 CONTRAST 8:51 PM CDT CBC W/PLT COUNT & AUTO STAT 07/29/2019 DIFFERENTIAL 8:05 PM CDT CBC W/PLT COUNT & AUTO STAT 07/29/2019 DIFFERENTIAL 8:05 PM CDT COMPREHENSIVE METABOLIC STAT 07/29/2019 PANEL 7:07 PM CDT LIPASE STAT 07/29/2019 7:[address] NEEDLE IN VEIN Routine 07/29/2019 6:24 PM CDT CBC W/PLT COUNT & AUTO Routine 06/23/2019 DIFFERENTIAL 3:50 AM CDT CBC W/PLT COUNT & AUTO Routine 06/23/2019 DIFFERENTIAL 3:50 AM CDT PHOSPHORUS Routine 06/23/2019 3:50 AM CDT MAGNESIUM Routine 06/23/2019 3:50 AM CDT BASIC METABOLIC PANEL (7) Routine 06/23/2019 3:50 AM CDT URINALYSIS W/ REFLEX STAT 06/22/2019 URINE CULTURE 11:32 PM CDT SARS-COV2/RT-PCR ([facility] & STAT 06/22/2019 REF LABS) 12:32 PM CDT XR CHEST 1 VIEW STAT 06/22/2019 PORTABLE/BEDSIDE 12:21 PM CDT CBC W/PLT COUNT & AUTO STAT 06/22/2019 DIFFERENTIAL 10:51 AM CDT BASIC METABOLIC PANEL (7) STAT 06/22/2019 10:51 AM CDT LIPASE STAT 06/22/2019 10:51 AM CDT CBC W/PLT COUNT & AUTO STAT 06/22/2019 DIFFERENTIAL 10:51 AM CDT BASIC METABOLIC PANEL (7) STAT 03/27/2019 6:41 PM CMA OR LPN HEPATIC FUNCTION PANEL STAT 03/27/2019 6:41 PM CMA OR LPN PHOSPHORUS STAT 03/27/2019 6:41 PM CMA OR LPN MAGNESIUM STAT 03/27/2019 6:41 PM CMA OR LPN LIPASE STAT 03/27/2019 6:41 PM CMA OR LPN CBC W/PLT COUNT & AUTO STAT 03/27/2019 DIFFERENTIAL 5:58 PM CMA OR LPN CBC W/PLT COUNT & AUTO STAT 03/27/2019 DIFFERENTIAL 5:58 PM CMA OR LPN CT ABDOMEN/PELVIS WITHOUT STAT 03/27/2019 IV CONTRAST 5:10 PM CMA OR LPN URINALYSIS W/ REFLEX STAT 03/27/2019 URINE CULTURE 4:09 PM CMA OR LPN SCREEN, URINE STAT 03/27/2019 4:09 PM CMA OR LPN REPORT OF PROCEDURE - 03/24/2019 ENDOSCOPY SCAN 12:22 PM CMA OR LPN LIPASE STAT 03/19/2019 9:29 AM CMA OR LPN AMYLASE STAT 03/19/2019 9:29 AM CMA OR LPN HEPATIC FUNCTION PANEL STAT 03/19/2019 9:29 AM CMA OR LPN BASIC METABOLIC PANEL (7) STAT 03/19/2019 9:29 AM CMA OR LPN URINALYSIS W/ MICROSCOPIC STAT 03/19/2019 8:57 AM CMA OR LPN CBC W/PLT COUNT & AUTO STAT 03/19/2019 DIFFERENTIAL 8:22 AM CMA OR LPN CBC W/PLT COUNT & AUTO STAT 03/19/2019 DIFFERENTIAL 8:22 AM CMA OR LPN ECG 12-LEAD Routine 03/19/2019 8:14 AM CMA OR LPN Procedure Note - Interface, External Ris In - 03/19/2019 12:24 PM CMA OR LPN Ventricula r Rate 114 BPM Atrial Rate 114 BPM P-R Interval 138 ms QRS Duration 88 ms Q-T Interval 348 ms QTC Calculatio n(Bazett) 479 ms P [place] 69 degrees R [place] 70 degrees T [place] 73 degrees Sinus tachycardi a Otherwise normal ECG When compared with ECG of 12:51, Premature ventricula r complexes are no longer Present T wave amplitude has decreased in Lateral leads ECG 12-LEAD STAT 03/19/2019 8:14 AM CMA OR LPN CT ABDOMEN/PELVIS WITH IV STAT 02/18/2019 CONTRAST 6:15 AM CMA OR LPN CBC W/PLT COUNT & AUTO STAT 02/18/2019 DIFFERENTIAL 3:45 AM CMA OR LPN MAGNESIUM STAT 02/18/2019 3:45 AM CMA OR LPN COMPREHENSIVE METABOLIC STAT 02/18/2019 PANEL 3:45 AM CMA OR LPN CBC W/PLT COUNT & AUTO STAT 02/18/2019 DIFFERENTIAL 3:45 AM CMA OR LPN URINALYSIS W/ REFLEX STAT 02/18/2019 URINE CULTURE 12:36 AM CMA OR LPN SCREEN, URINE STAT 02/18/2019 12:36 AM CMA OR LPN FL INSTALLATIONS INSPECTOR IN OR 30 Routine 02/06/2019 MINUTE INCREMENTS 1:13 PM CMA OR LPN PROCEDURE W/MINI C-ARM 02/06/2019 Malunion of valencia int fusion, 10:58 AM CMA OR LPN initial encounter (HCC) Right wrist pain Open wound of right hand with foreign body, sequela Special Needs (SYNTHES SCREW EXTRACTION SET, HAND TABLE, MINI C-ARM, TOURNIQUET ) REMOVAL,INTERNAL 02/06/2019 Malunion of joint f usion, HARDWARE-UPPER 10:58 AM CMA OR LPN initial encounter ( [facility]) Right wrist pain Open wound of right hand with foreign body, sequela Special Needs (SYNTHES SCREW EXTRACTION SET, HAND TABLE, MINI C-ARM, TOURNIQUET ) FLAP,ROTATIONAL-HAND 02/06/2019 Malunion of join t fusion, 10:58 AM CMA OR LPN initial encounter ([facility]) Right wrist pain Open wound of right hand with foreign body, sequela Special Needs (SYNTHES SCREW EXTRACTION SET, HAND TABLE, MINI C-ARM, TOURNIQUET ) ECG 12-LEAD Routine 01/31/2019 12:51 PM CMA OR LPN Procedure Note - Interface, External Ris In - 01/31/2019 5:14 PM CMA OR LPN Ventricula r Rate 90 BPM Atrial Rate 90 BPM P-R Interval 134 ms QRS Duration 90 ms Q-T Interval 358 ms QTC Calculatio n(Bazett) 437 ms P [place] 24 degrees R [place] 37 degrees T [place] 35 degrees Sinus rhythm with occasional Premature ventricula r complexes Otherwise normal ECG When compared with ECG of 6 16:19, Premature ventricula r complexes are now Present ECG 12-LEAD Routine 01/31/2019 12:51 PM CMA OR LPN CBC W/PLT COUNT & AUTO Routine 01/31/2019 DIFFERENTIAL 11:33 AM CMA OR LPN BUN AND CREATININE Routine 01/31/2019 W/RATIO 11:33 AM CMA OR LPN ELECTROLYTE PANEL Routine 01/31/2019 11:33 AM CMA OR LPN CBC W/PLT COUNT & AUTO Routine 01/31/2019 DIFFERENTIAL 11:33 AM CMA OR LPN after 01/22/2019 Results * CBC with platelet count + automated diff (11/29/2019 3:39 AM CDT) Only the most recent of 13 results within the time period is included. WBC 9.7 3.5 - 10.5 K/L [facility] RBC 4.08 3.93 - 5.22 M/L [facility] Hemoglobin 10.2 (L) 11.2 - 15.7 GM/DL [facility] Hematocrit 32.6 (L) 34.1 - 44.9 % [facility] MCV 79.9 79.4 - 94.8 fL [facility] MCH 25.0 (L) 25.6 - 32.2 pg [facility] MCHC 31.3 (L) 32.2 - 35.5 GM/DL [facility] RDW 19.0 (H) 11.7 - 14.4 % [facility] Platelets 324 150 - 450 K/CU MM [facility] MPV 10.6 9.4 - 12.3 fL [facility] nRBC 0 0 - 0 /100 WBC [facility] % Neutros 82 % [facility] % Lymphs 13 % [facility] % Monos 5 % [facility] % Eos 0 % [facility] % Baso 0 % [facility] # Neutros 7.90 (H) 1.56 - 6.13 K/L [facility] # Lymphs 1.23 1.18 - 3.74 K/L [facility] # Monos 0.47 (H) 0.24 - 0.36 K/L [facility] # Eos 0.01 (L) 0.04 - 0.36 K/L [facility] # Baso 0.01 0.01 - 0.08 K/L [facility] Immature 0 0 - 1 % [facility] [place] Specimen Blood - Entire left upper arm (body structure) Performing Organization Address City/State/Zipcode Ph one Number [facility] [address] [place] [address] [address] [facility] [place] * Magnesium (11/29/2019 3:39 AM CDT) Only the most recent of 10 results within the time period is included. Magnesium 1.7 1.6 - 2.6 mg/dL [facility] Specimen Blood - Entire left upper arm (body structure) Narrative Performed At [facility] - [facility] Performing Organization Address [facility] one Number [place] [address] [facility] * Hepatic function panel (11/29/2019 3:39 AM CDT) Only the most recent of 5 results within the time period is included. Protein, Total 8.8 (H) 6.0 - 8.3 gm/dL [facility] Albumin 4.8 3.5 - 5.0 g/dL [facility] Total Bilirubin 0.4 0.2 - 1.2 mg/dL [facility] Bilirubin, 0.2 0.1 - 0.5 mg/dL [facility] Alkaline 93 40 - 150 U/L [facility] AST 19 5 - 34 U/L [facility] ALT 14 6 - 55 U/L [facility] Specimen Blood - Entire left upper arm (body structure) Narrative Performed At [facility] - [facility] Performing Organization Address [facility] one Number [place] [address] [facility] * Basic metabolic panel (11/29/2019 3:39 AM CDT) Only the most recent of 7 results within the time period is included. Sodium 135 (L) 136 - 145 meq/L [facility] Potassium 3.6 3.5 - 5.1 meq/L [facility] Chloride 97 (L) 98 - 107 meq/L [facility] CO2 27 22 - 29 meq/L [facility] BUN 10 7 - 21 mg/dL [facility] Creatinine 0.77 0.57 - 1.25 mg/dL [facility] Glucose 100 70 - 105 mg/dL [facility] Calcium 10.4 (H) 8.4 - 10.2 mg/dL [facility] EGFR 87Comment: ESTIMATED GFR IS mL/min/1.73 sq m [facility] NOT ACCURATE CREATININE [facility] CLEARANCE IN PREDICTING [facility] CENTER GLOMERULAR FILTRATION RATE. ESTIMATED GFR IS NOT APPLICABLE FOR DIALYSIS PATIENTS. Specimen Blood - Entire left upper arm (body structure) Narrative Performed At [facility] ID - PÉREZASI [facility] Performing Organization Address City/State[place] [place] one Number [place] [address] [facility] * Urinalysis w/Microscopic + Reflex to Culture (11/28/2019 5:13 PM CDT) Only the most recent of 7 results within the time period is included. Color, UA Light Yellow [facility] Clarity, UA Clear [facility] Specific 1.013 1.001 - 1.035 [facility] [place], COUNTS INCLUDE 234 [facility] AT THE [facility] pH, UA 8.0 5.0 - 8.0 [facility] Protein, UA 20 mg/dL (A) Negative [facility] Glucose, UA 50 mg/dL (A) Negative [facility] Ketones, UA Negative Negative [facility] Bilirubin, UA Negative Negative [facility] Blood, UA Negative Negative [facility] Nitrite, UA Negative Negative [facility] Leukocytes, UA Trace (A) Negative [facility] Urobilinogen, 0.2 0.2 - 1.0 mg/dL [facility] RBC, UA 1 /HPF [facility] WBC, UA 4 /HPF [facility] Bacteria, UA Rare [facility] Mucus Rare [facility] Squam Epithel, 6 /HPF [facility] Amorphous Rare [facility] Specimen Source [facility] Specimen Urine - Urine specimen collection, clean catch (procedure) Narrative Performed At [facility] ID - [auto] [facility] ID - [facility] Performing Organization Address City/[facility] Ph one Number [address] [facility] * Screen, urine (11/28/2019 5:13 PM CDT) Only the most recent of 4 results within the time period is included. Preg Test, Ur Negative [facility] Specimen Urine Performing Organization Address City/[facility] Ph one Number [address] [facility] * SARS-CoV2/RT-PCR (Asymptomatic ONLY) (11/28/2019 3:11 PM CDT) Only the most recent of 5 results within the time period is included. SARS-COV2/RT-PC Negative Not Detected, [facility] R Negative, See [facility] external report for [facility]ENTER linked test SARS-COV-2 [facility] ROSALIND [facility] PERFORMING LAB [facility] Specimen Other - Nasopharyngeal wall structure (body structure) Narrative Performed At Negative result for this test determine s that SARS-CoV-2 RNA was not present in [facility] the specimen above the Limit of Detecti on (LOD). However, Negative results do [facility] not preclude SARS-CoV-2 infection and s hould not be used as the sole basis for treatment or patient management mo ns. Negative results must be combined with clinical observations, patient his tory, and epidemiological information. A false negative result may occur if a sp ecimen is improperly collected, transported or handled. A false negat wiliam result should be considered if patient's recent exposures or clinical presentation indicate that COVID-19 (SARS-CoV-2) is likely and diagnostic t ests for other causes of illness are negative. Re-testing should be consid ered in cases of suspected false negatives. The limit of detection for this assay i s 800 copies/mL. This SARS CoV-2 test is a real-time RT- PCR test intended for the qualitative detection of nucleic acid from SARS-CoV -2 in a nasopharyngeal swab specimen collected from individuals suspected of COVID-19 by their healthcare provider. This test has not been Food and Drug Ad ministration (FDA) cleared or approved. This is a modified version of an appr christel Emergency Use Authorization (EUA) and is in the process of review by the FDA. Once authorized by the FDA, the issued EUA will be effective until the declaration that circumstances exist justifying the authorization of the vaughn rgency use of in vitro diagnostic tests for detection and/or diagnosis of COVID -19 is terminated under Section 564(b)(2) of the Act or the EUA is revoked under Section 564(g) of the Act. Fact Sheet for Healthcare Providers: https://www.[employer].com/sites/default/files/product/documents/Fact_Sheet_HC_Provi ziwy_Muji_NURM-OdU-8.pdf Fact Sheet for Healthcare Patients: https://www.[employer].com/sites/default/files/product/documents/Fact_Sheet_Patients _Dlkx_RAMW-HjU-1.pdf Performing Laboratory: [address] [place] [address] Performing Organization Address City/State/Zipcode Ph one Number [address] [facility] * Lipase (11/28/2019 12:25 PM CDT) Only the most recent of 7 results within the time period is included. Lipase 8 8 - 78 U/L [facility] Specimen Blood Narrative Performed At [facility] - BILLY [facility] Performing Organization Address City/State/Zipcode Ph one Number [facility] [address] [place], [place] [address] [facility] * Comprehensive metabolic panel (11/28/2019 12:25 PM CDT) Only the most recent of 13 results within the time period is included. Protein, Total 8.8 (H)Comment: Specimen 6.0 - 8.3 gm/dL [facility] Albumin 4.6Comment: Specimen 3.5 - 5.0 g/dL [facility] hemolyzed [facility] Alkaline 97 40 - 150 U/L [facility] Total Bilirubin 0.3Comment: Specimen 0.2 - 1.2 mg/dL [facility] hemolyzed [facility] Sodium 139 136 - 145 meq/L [facility] Potassium 4.2Comment: Specimen 3.5 - 5.1 meq/L [facility] Chloride 105 98 - 107 meq/L [facility] CO2 20 (L) 22 - 29 meq/L [facility] BUN 8 7 - 21 mg/dL [facility] Creatinine 0.65Comment: Specimen 0.57 - 1.25 mg/dL [facility] Glucose 146 (H) 70 - 105 mg/dL [facility] Calcium 9.5 8.4 - 10.2 mg/dL [facility] AST 30Comment: Specimen moderately 5 - 34 U/L [facility] ALT 16Comment: Specimen moderately 6 - 55 U/L [facility] hemolyzed [facility] EGFR 106Comment: ESTIMATED GFR IS mL/min/1.73 sq m [facility] NOT ACCURATE CREATININE [facility] CLEARANCE IN PREDICTING [facility] GLOMERULAR FILTRATION RATE. ESTIMATED GFR IS NOT APPLICABLE FOR DIALYSIS PATIENTS. Specimen Blood Narrative Performed At [facility] - EDASI [facility] Performing Organization Address City/State/Zipcode Ph one Number [facility] [address] [place], [place] [address] [facility] * CT abdomen/pelvis with IV contrast (10/17/2019 11:26 AM CDT) Only the most recent of 3 results within the time period is included. Specimen Narrative Performed At FINAL REPORT [facility] ABDOMINAL AND PELVIS CT DATED 10/17/2019 COMPARISON: July 29, 2019 CLINICAL INFORMATION: Abdominal pain, acute, nonlocalized TECHNIQUE: Axial images of the abdome n and pelvis were obtained from diaphragm to the pubic symphysis with i ntravenous contrast. This exam was performed according to [facility] departmental dose-optimization program, which includ es automated exposure control, adjustment of the mA and/or kV accordin g to patient size and/or use of interactive reconstruction technique . COMMENT: Liver and spleen are normal in size without focal abnormality. Gallbladder is surgicall y absent. No biliary dilatation is noted. Pancreas and adrenals are unremarkable. Both kidneys are normal in size and fun ctioning. No hydronephrosis, hydroureter, urolithiasis is seen. A 7 mm cyst is seen in the inferior pole left kidney. Diverticular disease is seen in the lar ge bowel without diverticulitis. Small bowel is normal i n caliber. Appendix is not visualized. The urinary bladder is contracted. Uter us surgically absent. No mass, adenopathy or ascites is prese nt. IMPRESSION: 1. Diverticulosis without diverticuliti s. 2. Status post cholecystectomy and hyst erectomy. 3. Left renal cyst. Signed: Kim Marquez MD Report Verified Date/Time: 10/17/2019 12:05:28 Reading Location: [facility] C013Y CT Body Reading Room Procedure Note Interface, External Ris In - 10/17/2019 12:07 PM CDT FINAL REPORT ABDOMINAL AND PELVIS CT DATED 10/17/2019 COMPARISON: July 29, 2019 CLINICAL INFORMATION: Abdominal pain, acute, nonlocalized TECHNIQUE: Axial images of the abdomen and pelvis were obtained from diaphragm to the pubic symphysis with intravenous contrast. This exam was performed according to our departmental dose-optimization program, which includes automated exposure control, adjustment of the mA and/or kV according to patient size and/or use of interactive reconstruction technique. COMMENT: Liver and spleen are normal in size without focal abnormality. Gallbladder is surgically absent. No biliary dilatation is noted. Pancreas and adrenals are unremarkable. Both kidneys are normal in size and functioning. No hydronephrosis, hydroureter, urolithiasis is seen. A 7 mm cyst is seen in the inferior pole left kidney. Diverticular disease is seen in the large bowel without diverticulitis. Small bowel is normal in caliber. Appendix is not visualized. The urinary bladder is contracted. Uterus surgically absent. No mass, adenopathy or ascites is present. IMPRESSION: 1. Diverticulosis without diverticulitis . 2. Status post cholecystectomy and hyste rectomy. 3. Left renal cyst. Signed: Kim Marquez MD Report Verified Date/Time: 10/17/2019 12:05:28 Reading Location: [facility] B1 C013Y CT Body Reading Room Performing Organization Address [facility] [place] Ph one Number [facility] * Lactic acid, venous (10/16/2019 11:44 AM CDT) Lactate, Venous 1.32 0.50 - 2.20 mmol/L [facility] Specimen Blood Narrative Performed At [facility] ID - DB [facility] Performing Organization Address [facility] [place] Ph one Number [address] [facility] * Phosphorus (10/16/2019 11:44 AM CDT) Only the most recent of 8 results within the time period is included. Phosphorus 3.0 2.3 - 4.7 mg/dL [facility] Specimen Blood Narrative Performed At [facility] ID - DB [facility] Performing Organization Address City/State/Zipcode Ph one Number [facility] [address] [place], [place] [address] [facility] * ANESTHESIA PERIPHERAL BLOCK (09/06/2019 1:43 PM CDT) Narrative Performed At Norma Burger Jr., MD 09/06/2019 1:44 PM Peripheral Block Patient location during procedure: PACU Start time: 09/06/2019 1:15 PM End time: 09/06/2019 1:20 PM Procedure Indication: procedure for reina n, at surgeon's request and post-op pain management Preanesthetic Checklist Completed: patient identified, pre-op e valuation, timeout performed, IV checked, risks and benefits discussed, monitors and equipment checked, anesthesia consent given, prep site dry prior to draping and maximum sterile barriers were used: cap, mask, sterile gown, sterile gloves, and large sterile sheet Staffing Anesthesiologist: Norma Burger Jr., MD Prep Prep: chlorhexidine gluconate and isopr opyl alcohol Procedures: sterile gloves, surgical ma sk, surgical hat, sterile technique and prep and sterile drape applied Peripheral Nerve Block Patient position: supine Patient monitoring: EKG, HR, BP and SpO 2 Laterality: right Block type: supraclavicular Injection technique: catheter ultrasound guided - in plane, prescan w as completed prior to procedure and needle tip was visualized throughout e entire procedure ultrasound image saved Block Dose: ropivicaine and catheter Infiltration strength: 0.35 % Dose: 20 mL Needle Needle type: over the needle catheter Needle gauge: 18 G Needle length: 75mm. Needle Localization: US guided Hydrodissection? yesCatheter tunneled Dressing: Occlusive dressing applied in sterile fashion and Dermabond applied at the catheter insertion site Assessment Injection assessment: incremental injec tion and negative aspiration for heme Pain scale pre-procedure: 0 Pain scale post-procedure: 0 LOC: Sedated with meaningful contact supplemental oxygen used.no evidence of intravascular injection and no heart rate changeno paresthesia patient had no immediate complications and patient tolerated the procedure well Procedure Note Norma Burger Jr. MD - 09/06/2019 1:43 PM CDT Peripheral Block Patient location during procedure: PACU Start time: 09/06/2019 1:15 PM End time: 09/06/2019 1:20 PM Procedure Indication: procedure for pain, at surgeon's request and post-op pain management Preanesthetic Checklist Completed: patient identified, pre-op evaluation, timeout performed, IV checked, risks and benefits discussed, monitors and equipment checked, anesthesia consent given, prep site dry prior to draping and maximum sterile barriers were used: cap, mask, sterile gown, sterile gloves, and large sterile sheet Staffing Anesthesiologist: Norma Burger Jr., MD Prep Prep: chlorhexidine gluconate and isopropyl alcohol Procedures: sterile gloves, surgical mask, surgical hat, sterile technique and prep and sterile drape applied Peripheral Nerve Block Patient position: supine Patient monitoring: EKG, HR, BP and SpO2 Laterality: right Block type: supraclavicular Injection technique: catheter ultrasound guided - in plane, prescan was completed prior to procedure and needle tip was visualized throughout the entire procedure ultrasound image saved Block Dose: ropivicaine and catheter Infiltration strength: 0.35 % Dose: 20 mL Needle Needle type: over the needle catheter Needle gauge: 18 G Needle length: 75mm. Needle Localization: US guided Hydrodissection? yesCatheter tunneled Dressing: Occlusive dressing applied in sterile fashion and Dermabond applied at the catheter insertion site Assessment Injection assessment: incremental injection and negative aspiration for heme Pain scale pre-procedure: 0 Pain scale post-procedure: 0 LOC: Sedated with meaningful contact supplemental oxygen used.no evidence of intravascular injection and no heart rate changeno paresthesia patient had no immediate complications and patient tolerated the procedure well * FL fluoro non-specific up to 1 hour (09/06/2019 1:00 PM CDT) Specimen Narrative Performed At Fluoroscopic unit utilized for a procedure performed in the OR. No [facility] RIS interpretation was requested. Refer t o the operative report for findings. Refer to PACS for patient radiation d ose information. Procedure Note Interface, External Ris In - 09/06/2019 1:11 PM CDT Fluoroscopic unit utilized for a procedure performed in the OR. No interpretation was requested. Refer to the operative report for findings. Refer to PACS for patient radiation dose information. Performing Organization Address City/State/[facility] [place] Ph one Number [facility] * CBC (Hemogram only) (09/06/2019 4:53 AM CDT) Only the most recent of 6 results within the time period is included. WBC 6.4 3.5 - 10.5 K/L [facility] RBC 4.08 3.93 - 5.22 M/L [facility] Hemoglobin 10.5 (L) 11.2 - 15.7 GM/DL [facility] Hematocrit 34.6 34.1 - 44.9 % [facility] MCV 84.8 79.4 - 94.8 fL [facility] MCH 25.7 25.6 - 32.2 pg [facility] MCHC 30.3 (L) 32.2 - 35.5 GM/DL [facility] RDW 19.4 (H) 11.7 - 14.4 % [facility] Platelets 353 150 - 450 K/CU MM [facility] MPV 10.6 9.4 - 12.3 fL [facility] nRBC 0 0 - 0 /100 WBC [facility] Specimen Blood Performing Organization Address City/[facility] Ph one Number [place] [address] [facility] * IR non-tunneled dialysis catheter insertion (09/05/2019 5:25 PM CDT) Specimen Narrative Performed At FINAL REPORT GE RIS PROCEDURE: Central Venous Catheter Plac ement CLINICAL HISTORY: poor access CRIMINAL ATTORNEY: Amauri Cherry DO, JD ANESTHESIA: Local lidocaine. DEVICE: Arrow triple-lumen 7 Maltese 16 cm catheter DOSE INFORMATION - Ka,r: 2 mGy Estimated Blood Loss: <5 mL Samples: None. PROCEDURE: The risks, benefits, and alt ernatives to the procedure were discussed with the patient. All questions were answered and written informed consent was obtained. A universal timeout was performed prior to starting the procedu re. For Prevention of Central Venous Catheter (CVC)-Related Bloodstre am Infections all elements of maximal sterile barrier technique, hand hygiene, skin preparation and sterile techniques were followed. Ultrasound of the right internal jugula r vein demonstrated a patent and compressible vessel. An ultrasound image of the vessel was obtained. Lidocaine was used for cutane ous anesthesia. Under ultrasound guidance the vessel was acce ssed with a 19-gauge needle and through this a 0.035 inch 3J wire w as positioned in the inferior vena cava. Under fluoroscopic guidance, over the wire the catheter was placed with the tip overlying the S VC/right atrium. The venous catheter ports were accessed and demons trated excellent blood return and flushed easily. The catheter was se cured to skin using suture, and a sterile dressing was placed. The patient tolerated the procedure well and was returned to the holding area/floor in stable condition. IMPRESSION: Successful placement of non-tunneled ri ght IJ central venous catheter. Catheter is ready for immediate use. Signed: Amauri Cherry MD Report Verified Date/Time: 09/05/2019 17:23:04 Reading Location: [facility] P048 Angio Bod y Reading Room Procedure Note Interface, External Ris In - 09/05/2019 5:38 PM CDT FINAL REPORT PROCEDURE: Central Venous Catheter Placement CLINICAL HISTORY: poor access CRIMINAL ATTORNEY: Amauri Cherry DO, JD ANESTHESIA: Local lidocaine. DEVICE: Arrow triple-lumen 7 Maltese 16 cm catheter DOSE INFORMATION - Ka,r: 2 mGy Estimated Blood Loss: <5 mL Samples: None. PROCEDURE: The risks, benefits, and alternatives to the procedure were discussed with the patient. All questions were answered and written informed consent was obtained. A universal timeout was performed prior to starting the procedure. For Prevention of Central Venous Catheter (CVC)-Related Bloodstream Infections all elements of maximal sterile barrier technique, hand hygiene, skin preparation and sterile techniques were followed. Ultrasound of the right internal jugular vein demonstrated a patent and compressible vessel. An ultrasound image of the vessel was obtained. Lidocaine was used for cutaneous anesthesia. Under ultrasound guidance the vessel was accessed with a 19-gauge needle and through this a 0.035 inch 3J wire was positioned in the inferior vena cava. Under fluoroscopic guidance, over the wire the catheter was placed with the tip overlying the SVC/right atrium. The venous catheter ports were accessed and demonstrated excellent blood return and flushed easily. The catheter was secured to skin using suture, and a sterile dressing was placed. The patient tolerated the procedure well and was returned to the holding area/floor in stable condition. IMPRESSION: Successful placement of non-tunneled right IJ central venous catheter. Catheter is ready for immediate use. Signed: Amauri Cherry MD Report Verified Date/Time: 09/05/2019 17:23:04 Reading Location: [place] [address] Angio Body Reading Room Performing Organization Address [facility] one Number GE RIS * Mitochondrial Ab Titer (09/04/2019 1:23 PM CDT) Mitochondrial TNP <1:20 [facility] Ab Titer Comment: DIAGNOSTIC Test Not Performed. Screening INCORPORATED test Negative or Not Detected. Titer not performed. Specimen Blood Narrative Performed At Performing Lab [facility] [place] [address] [place] [address] Bunny Puente MD, PhD, MARIOLA Performing Organization Address [facility] one Number [employer] [place], [place] INC[place] [address] [facility][1] [id number] * Mitochondrial Ab Screen (09/04/2019 1:23 PM CDT) Anti-Mitochond NEGATIVE NEGATIVE [facility] Abs Comment: DIAGNOSTIC This test was developed and INCORPORATED its analytical performance characteristics have been determined by [facility]. It has not been cleared or approved by FDA. This assay has been validated pursuant to the CLIA regulations and is used for clinical purposes. Specimen Blood Narrative Performed At Performing Lab [facility] [place] [address] [place] [address] Bunny Puente MD, PhD, MARIOLA Performing Organization Address [facility] one Number [employer] [place] [address] [facility][1] [id number] * Herpes virus antibody, IgG (09/04/2019 1:23 PM CDT) HSV1 IgG <0.2 <0.9 [facility] HSV2 IgG <0.2 <0.9 [facility] Specimen Blood Narrative Performed At Herpes Simplex Virus 1 IgG Result Interpretation: [facility] <0.9 Al Normal [facility] 0.9-1.0 Al Equivocal >/= 1.1 Al Positive Herpes Simplex Virus 2 IgG Result Inter pretation <0.9 Al Normal 0.9-1.0 Al Equivocal >/= 1.1 Al Positive Performing Organization Address [facility] one [address] [facility] * EBV VIRAL LOAD (09/04/2019 1:23 PM CDT) EBV Viral Load Negative or below the linear <500 - >5,000,000 [facility] range of the assay (<500 IU IU/mL [facility] /mL) [facility] Specimen Blood Narrative Performed At This assay was performed by real-time P CR for the detection of the Jt-Watson [facility] virus (EBV) gene EBNA-1. The test is composed of (1 ) DNA extraction from [facility] patient specimen, and (2) real-time PCR amplification and detection with [id number] primers and probes. A w ell-conserved region of the EBNA-1 gene is targeted, along with an internal con trol sequence used to confirm PCR amplification. Asymptomatic carriers an d viral genetic variation, among other factors, can affect the accuracy of nuc leic acid testing; therefore, results should be interpreted in light of clini imani data. This test was developed and its perform ance characteristics determined by the [facility] Pathology Dep artment, Section of Molecular Pathology. It has not been cleared or approved by the U.S. Food and Drug Administration (FDA), since FDA approval is not requir ed for clinical use of the test. Validation was done as required by The Clinical Laboratory Improvement Amendments of 1988. Performing Organization Address City[facility] one Number [facility] [address] [place], [place] [address] [facility] * Anti-Mitochondrial Ab, reflex to titer (09/04/2019 1:23 PM CDT) Scan Result [facility] Specimen Blood Performing Organization Address [facility] one Number [facility] [place] [facility] [address] [address] * CMV PCR, quantitative (09/04/2019 1:23 PM CDT) CMV DNA Viral Negative or below the linear <375- >375,[address] [facility] Load range of the assay (<375 copies/mL [facility] BCM copies/mL) [facility] Specimen Blood Narrative Performed At Cytomegalovirus (CMV) infection can cause significant disease in [facility] immunosuppressed patients. However, it is common for CMV to manifest as a [facility] limited infection which is of no clinic al significance in immunosuppressed patients or in healthy individuals. Viral load measurements are helpful to identify clinical CMV infection and to guide the pre-emptive management of ant iviral therapy. For treatment of CMV infection due to reactivation in transp lant recipients, a threshold between 4,000 and 5,000 copies/mL is suggested. For treatment of primary CMV infection, a lower threshold can be use d. CMV infection may also be monitored usi ng weekly serial measurements. Serial measurements of CMV DNA viral load can be evaluated by identifying a 10-fold change, as well as assessing the CMV DN A viral load and the clinical context for each patient. The plasma CMV DNA viral load was detec mookie using quantitative polymerase chain reaction and fluorescent monitoring of a specific hybridized probe. Genetic variation and other factors can affect the accuracy of nucleic acid testing. Therefore, the results should be interp reted in light of clinical data. A negative result may not exclude the pre sence of CMV disease. This test was developed and its perform ance characteristics determined by the [facility] Pathology Dep artment, Section of Molecular Pathology. It has not been cleared or approved by the U.S. Food and Drug Administration (FDA), since FDA approval is not requir ed for clinical use of the test. Validation was done as required by The Clinical Laboratory Improvement Amendments of 1988. Performing Organization Address City[facility] one Number [facility] [address] [place], [place] [address] [facility] * Actin (Smooth Muscle) Antibody, IgG (09/04/2019 1:23 PM CDT) Anti-Smooth <20 See Note: U [facility] Muscle Ab Comment: DIAGNOSTIC Reference Range: INCORPORATED <20 NEGATIVE > OR = 20 POSITIVE Antibodies recognizing actin are the main component of smooth muscle antibodies associated with autoimmune liver disease. Actin antibodies are found in approximately 75% of patients with autoimmune hepatitis (AIH) type 1, approximately 65% of patients with autoimmune cholangitis, approximately 30% of patients with primary biliary cirrhosis, and approximately 2% of healthy people. High values are closely correlated with AIH type 1. Specimen Blood Narrative Performed At Performing Lab [facility] [address] [place] [address] Bunny Puente MD, PhD, MARIOLA Performing Organization Address [facility] one Number [facility] [place] [address] [facility][1] [id number] * Ceruloplasmin (09/04/2019 1:23 PM CDT) Ceruloplasmin 31 18 - 53 mg/dL [facility] Specimen Blood Narrative Performed At Performing Lab [facility] *[facility] INC[facility]POR[facility], [address] [place] [id number] Ramon Araya MD, PhD Performing Organization Address [facility] one Number [facility] [place] [address] [facility][1] [id number] * Herpes virus antibody, IgM (09/04/2019 1:23 PM CDT) Herpes Virus Negative [facility] Specimen Blood Narrative Performed At [facility] HSV 1 IgM Screen: Negative [facility] HSV 2 IgM Screen: Negative Performed by [facility] Performing Organization Address City[facility] one Number [facility] [address] [place], [place] [address] [facility] * Anti-Nuclear Antibody (SHAUNNA) (09/04/2019 1:23 PM CDT) SHAUNNA Negative Negative [facility] Specimen Blood Narrative Performed At Test performed by IFA method. [facility] Test performed by IFA method. [facility] Performing Organization Address [facility] one [place] [address] [address] [phone] [place] [address] * Alpha fetoprotein (AFP), tumor marker (09/04/2019 4:45 AM CDT) Alpha-Fetoprote 3.0 <10.0 ng/mL [facility] Specimen Blood Narrative Performed At Llama Farmer ID - PIAYA L [facility] Performing Organization Address [facility] one [address] * Ferritin (09/04/2019 4:45 AM CDT) Ferritin 6.49 5.00 - 275.00 ng/mL [facility] Specimen Blood Narrative Performed At [facility]ama Farmer ID - NTP [facility] Performing Organization Address [facility] one [place] [address] [address] [phone] [place] [address] * Hepatitis A antibody, IgG (09/03/2019 5:53 PM CDT) Hep A IgG Reactive (A) Nonreactive [facility] Specimen Blood Narrative Performed At [facility]ama Farmer ID - DB [facility] Performing Organization Address [facility] one [address] * Iron, TIBC, % sat. (without ferritin) (09/03/2019 5:53 PM CDT) Iron 33.0 (L) 40.0 - 160.0 ug/dL [facility] TIBC 495 (H) 250 - 450 ug/dL [facility] Iron % 7 (L) 20 - 55 % [facility] Specimen Blood Narrative Performed At Llama Farmer ID - DB [facility] Performing Organization Address City/[facility] Ph one [place] [address] [address] [phone] [place] [address] * Hepatitis B core antibody, total (09/03/2019 5:53 PM CDT) Hep B Core Nonreactive Nonreactive [facility] Specimen Blood Narrative Performed At Llama Farmer ID - [facility] Performing Organization Address [facility] one [place] [address] [place] [address] * Hepatitis B surface antibody (09/03/2019 5:53 PM CDT) Hep B S Ab 663.5 (H) <8.0 mIU/mL [facility] Specimen Blood Narrative Performed At Llama Farmer ID - [facility] Performing Organization Address [facility] one [address] * [id number] (09/03/2019 5:52 PM CDT) A-1 Antitrypsin 188.10Comment: Specimen 90.00 - 200.00 mg/dL [facility] moderately hemolyzed [facility] Specimen Blood Narrative Performed At Llama Farmer ID - [facility] Performing Organization Address [facility] one [place] [address] [address] [phone] [place] [address] * MR abdomen without & with IV contrast (09/03/2019 4:53 PM CDT) Specimen Narrative Performed At FINAL REPORT [facility]IS TECHNIQUE: MRI of the abdomen WITHOUT a nd WITH intravenous contrast. INDICATION: Abnormal liver enzymes. COMPARISON: Ultrasound from 09/02/2019. C T from 07/29/2019. FINDINGS: LOWER THORAX: Unremarkable. LIVER: No hepatic signal abnormality. T here are several (between five and 10) scattered hepatic cysts which m easure up to 0.4 cm. BILIARY: Prior cholecystectomy. No bili selina ductal dilatation or filling defect. The common bile is norm al in diameter at 0.6 cm SPLEEN: No splenomegaly. PANCREAS: No focal masses or ductal dil atation. ADRENALS: No adrenal nodules. KIDNEYS/URETERS: No hydronephrosis or s olid mass lesions. A nonenhancing left lower pole renal lesi on is most likely a simple renal cyst which measures 0.6 cm. No ro utine follow-up imaging is recommended. PERITONEUM/RETROPERITONEUM: No free flu id. LYMPH NODES: No lymphadenopathy. VESSELS: The main portal vein is patent and measures 1.1 cm in diameter. GI TRACT: No distention or wall thicken ing. BONES AND SOFT TISSUES: Unremarkable. IMPRESSION: No explanation on this MRI for the abno rmal liver function tests. Signed: Hola Herman MD Report Verified Date/Time: 09/03/2019 17:18:51 Reading Location: [address] Body Reading Room Procedure Note Interface, External Ris In - 09/03/2019 5:22 PM CDT FINAL REPORT TECHNIQUE: MRI of the abdomen WITHOUT and WITH intravenous contrast. INDICATION: Abnormal liver enzymes. COMPARISON: Ultrasound from 09/02/2019. CT from 07/29/2019. FINDINGS: LOWER THORAX: Unremarkable. LIVER: No hepatic signal abnormality. There are several (between five and 10) scattered hepatic cysts which measure up to 0.4 cm. BILIARY: Prior cholecystectomy. No biliary ductal dilatation or filling defect. The common bile is normal in diameter at 0.6 cm SPLEEN: No splenomegaly. PANCREAS: No focal masses or ductal dilatation. ADRENALS: No adrenal nodules. KIDNEYS/URETERS: No hydronephrosis or solid mass lesions. A nonenhancing left lower pole renal lesion is most likely a simple renal cyst which measures 0.6 cm. No routine follow-up imaging is recommended. PERITONEUM/RETROPERITONEUM: No free fluid. LYMPH NODES: No lymphadenopathy. VESSELS: The main portal vein is patent and measures 1.1 cm in diameter. GI TRACT: No distention or wall thickening. BONES AND SOFT TISSUES: Unremarkable. IMPRESSION: No explanation on this MRI for the abnormal liver function tests. Signed: Hola Herman MD Report Verified Date/Time: 09/03/2019 17:18:51 Reading Location: [facility] [id number] CT Body Reading Room Performing Organization Address City/State/Zipcode Ph one Number [facility] * US abdomen limited (09/02/2019 4:22 AM CDT) Specimen Narrative Performed At FINAL REPORT [facility] History: Elevated LFTs Abdominal ultrasound dated 09/02/2019 Comparison: 09/29/2008 Comment: Real-time transabdominal ult rasound of the right upper quadrant abdomen was performed. Liver: 15.5 cm , normal. Normal echogen icity. No focal lesions. Gallbladder: Absent. Biliary tree: No intrahepatic ductal di latation. CBD: 4 mm. MPV: 8 mm Pancreas: Unremarkable. Right kidney: 10.3 x 3.8 x 4.6 cm. Norm al echogenicity. No ascites is present in the abdomen. The visualized abdominal aorta is andrea l in caliber. The IVC and Hepatic veins are patent. Impression: Previous cholecystectomy. No ultrasound abnormality to explain th e patient's elevated LFTs. Signed: Jeff Reynolds MD Report Verified Date/Time: 09/02/2019 04:49:51 Procedure Note Interface, External Ris In - 09/02/2019 4:52 AM CDT FINAL REPORT History: Elevated LFTs Abdominal ultrasound dated 09/02/2019 Comparison: 09/29/2008 Comment: Real-time transabdominal ultrasound of the right upper quadrant abdomen was performed. Liver: 15.5 cm , normal. Normal echogenicity. No focal lesions. Gallbladder: Absent. Biliary tree: No intrahepatic ductal dilatation. CBD: 4 mm. MPV: 8 mm Pancreas: Unremarkable. Right kidney: 10.3 x 3.8 x 4.6 cm. Normal echogenicity. No ascites is present in the abdomen. The visualized abdominal aorta is normal in caliber. The IVC and Hepatic veins are patent. Impression: Previous cholecystectomy. No ultrasound abnormality to explain the patient's elevated LFTs. Signed: Jeff Reynolds MD Report Verified Date/Time: 09/02/2019 04:49:51 Performing Organization Address [facility] one Number GE RIS * Hepatitis panel, acute (09/02/2019 3:20 AM CDT) Hep A IgM Nonreactive Nonreactive [facility] Hep B C IgM Nonreactive Nonreactive [facility] Hepatitis C Ab Nonreactive Nonreactive [facility] HBsAg Screen Nonreactive Nonreactive [facility] Specimen Blood Narrative Performed At Llama Farmer ID - JOHN L [facility] Llama Farmer ID - AMMY C [facility] Llama Farmer ID - AMMY C Performing Organization Address [facility] one Number [address] [address] [facility] * Prothrombin time/INR (09/01/2019 12:47 PM CDT) Protime 11.8 (L) 11.9 - 14.2 seconds [facility] INR 0.9 <=5.9 [facility] Specimen Blood Narrative Performed At Effective 07/27/2018: PT Reference Range Change [facility] New: 11.9-14.2 Previous: 11.7-14.7 [facility] MEDICAL MELANIE TER RECOMMENDED COUMADIN/WARFARIN INR THERA PY RANGES STANDARD DOSE: 2.0-3.0 Includes: PROP HYLAXIS for venous thrombosis, systemic embolization; TREATMENT for venous thro mbosis and/or pulmonary embolus. HIGH RISK: Target INR is 2.5-3.5 for pa tients wiht mechanical heart valves. Performing Organization Address [facility] one Number [address] [facility] * XR wrist complete 3 views min right (09/01/2019 8:37 AM CDT) Specimen Narrative Performed At FINAL REPORT GE RIS RAD, WRIST, RIGHT, COMPLETE (MIN 3 VIEW S) CLINICAL INDICATION: ARM PAIN, post o p COMPARISON: None TECHNIQUE: Frontal, oblique and lateral views of the right wrist were obtained. 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 Evidence of prior ope n reduction internal fixation. 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 Overlying soft tissue edema is present. The visible carpal structures demonstrate diffuse osteopenia. Signed: JR Knox Robert MD Report Verified Date/Time: 09/01/2019 08:49:28 Reading Location: [address] Neuro Re ading Room Procedure Note Interface, External Ris In - 09/01/2019 8:51 AM CDT FINAL REPORT RAD, WRIST, RIGHT, COMPLETE (MIN 3 VIEWS) CLINICAL INDICATION: ARM PAIN, post op COMPARISON: None TECHNIQUE: Frontal, oblique and lateral views of the right wrist were obtained. 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 Evidence of prior open reduction internal fixation. 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 Overlying soft tissue edema is present. The visible carpal structures demonstrate diffuse osteopenia. Signed: JR Knox Robert MD Report Verified Date/Time: 09/01/2019 08:49:28 Reading Location: [address] Neuro Reading Room Performing Organization Address City/State/Zipcode Ph one Number GE RIS * PIV Insertion (07/29/2019 6:24 PM CDT) Narrative Performed At Gregory Chery MD 07/29/2019 7: 59 PM PIV Insertion Date/Time: 07/29/2019 7:30 PM Performed by: Gregory Chery MD Authorized by: Gregory Chery MD Indication: fluid administration, frequ ent blood draws, IV medication, pain and vascular access. Location: right upper arm. Needle gauge: 18 Seldinger technique: Seldinger techniqu e used Number of attempts: 1 * XR chest 1 view portable / bedside (06/22/2019 12:21 PM CDT) Specimen Narrative Performed At FINAL REPORT [facility] CLINICAL HISTORY: EMESIS TECHNIQUE: 1 view of the chest COMPARISON: 09/28/2014 IMPRESSION: There are no focal infiltrates or pleur al effusions. The cardiomediastinal silhouette is within normal limits for size. The visualized bones are intact. Signed: Norma Lombardo MD Report Verified Date/Time: 06/22/2019 13:00:00 Reading Location: [facility] Radiolo gy Reading Room Procedure Note Interface, External Ris In - 06/22/2019 1:02 PM CDT FINAL REPORT CLINICAL HISTORY: EMESIS TECHNIQUE: 1 view of the chest COMPARISON: 09/28/2014 IMPRESSION: There are no focal infiltrates or pleural effusions. The cardiomediastinal silhouette is within normal limits for size. The visualized bones are intact. Signed: Norma Lombardo MD Report Verified Date/Time: 06/22/2019 13:00:00 Reading Location: [facility] Radiology Reading Room Performing Organization Address City/State/Zipcode Ph one Number Biopharmacopae * CT abdomen pelvis without contrast (03/27/2019 5:10 PM CMA OR LPN) Specimen Narrative Performed At FINAL REPORT [facility] ABDOMINAL AND PELVIS CT DATED 03/27/2019 CLINICAL INFORMATION: abd pain TECHNIQUE: Axial images of the abdome n and pelvis were obtained from diaphragm to the pubic symphysis withou t GI or intravenous contrast. This exam was performed according to [facility] departmental dose-optimization program, which includ es automated exposure control, adjustment of the mA and/or kV accordin g to patient size and/or use of interactive reconstruction technique . COMMENT: Liver and spleen are normal in size without focal abnormality. Gallbladder is surgicall y absent. No biliary dilatation is noted. Pancreas and adrenals are unremarkable. Both kidneys are normal in size. No hyd ronephrosis, hydroureter, urolithiasis is seen. The small and large bowel are unremarka ble. Appendix is not visualized. No mass, adenopathy or ascites is prese nt. IMPRESSION: Unremarkable noncontrast enhanced CT of the abdomen and pelvis. Signed: Kim Marquez MD Report Verified Date/Time: 03/27/2019 17:28:06 Reading Location: [address] Body Reading Room Procedure Note Interface, External Ris In - 03/27/2019 5:30 PM CMA OR LPN FINAL REPORT ABDOMINAL AND PELVIS CT DATED 03/27/2019 [...] the abdomen and pelvis. Signed: Kim Marquez MD Report Verified Date/Time: 03/27/2019 17:28:06 Reading Location: [address] Body Reading Room Performing Organization Address [facility] [place] GE RIS * EKG-SCANNED (03/24/2019 12:22 PM CMA OR LPN) Narrative Performed At This result has an attachment that is n ot available. * Amylase (03/19/2019 9:29 AM CMA OR LPN) Amylase 52 25 - 125 U/L [facility] Specimen Blood Narrative Performed At [place] ID - AMMY Jay [facility] Performing Organization Address [facility]/Zipcode Ph one Number [place] [phone] [place], [place] [address] [facility] * Urinalysis w/Microscopic (03/19/2019 8:57 AM CMA OR LPN) Color, UA Yellow [facility] Clarity, UA Hazy [facility] Specific 1.026 1.001 - 1.035 [facility] [place], COUNTS INCLUDE 234 BEDS AT THE [facility] pH, UA 6.5 5.0 - 8.0 [facility] Protein, UA 20 mg/dL (A) Negative [facility] Glucose, UA Negative Negative [facility] Ketones, UA Negative Negative [facility] Bilirubin, UA Negative Negative [facility] Blood, UA Negative Negative [facility] Nitrite, UA Negative Negative [facility] Leukocytes, UA Trace (A) Negative [facility] Urobilinogen, 2.0 (H) 0.2 - 1.0 mg/dL [facility] RBC, UA <1 /HPF [facility] WBC, UA 3 /HPF [facility] Mucus Rare [facility] Squam Epithel, 37 /HPF [facility] Amorphous Occasional [facility] Specimen Source [facility] Specimen Urine Narrative Performed At [place] ID - [[email or web address]] [facility] [place] [employer] ID - tech [facility] Performing Organization Address City/State/Zipcode Ph one Number [place] [address] [facility] * ECG 12 lead (03/19/2019 8:14 AM CMA OR LPN) Only the most recent of 2 results within the time period is included. Specimen Narrative Performed At Ventricular Rate 114 BPM GE MUSE Atrial Rate 114 BPM P-R Interval 138 ms QRS Duration 88 ms Q-T Interval 348 ms QTC Calculation(Bazett) 479 ms P [place] 69 degrees R [place] 70 degrees T [place] 73 degrees Sinus tachycardia Prolonged QT When compared with ECG of 31-JAN-2019 1 2:51, Premature ventricular complexes are no longer Present T wave amplitude has decreased in Later al leads I and aVL QT has lengthened Confirmed by MD POLANCO YOCHAI ([id number] ) on 03/20/2019 6:17:04 AM Procedure Note Interface, External Ris In - 03/20/2019 6:17 AM CMA OR LPN Ventricular Rate 114 BPM Atrial Rate 114 BPM P-R Interval 138 ms QRS Duration 88 ms Q-T Interval 348 ms QTC Calculation(Bazett) 479 ms P [place] 69 degrees R [place] 70 degrees T [place] 73 degrees Sinus tachycardia Prolonged QT When compared with ECG of 31-JAN-2019 12:51, Premature ventricular complexes are no longer Present T wave amplitude has decreased in Lateral leads I and aVL QT has lengthened Confirmed by MD POLANCO YOCHAI ([id number]) on 03/20/2019 6:17:04 AM Performing Organization Address City[facility] Ph one Number GE MUSE * [place] Ceo Na in OR 30 minute increments (02/06/2019 1:13 PM CMA OR LPN) Specimen Narrative Performed At PROCEDURE PERFORMED IN THE O.R. - PLEASE REFER TO EMR . GE RIS Procedure Note Interface, External Ris In - 07/28/2019 2:36 AM CDT PROCEDURE PERFORMED IN THE O.R. - PLEASE REFER TO EMR. Performing Organization Address [facility] Ph one Number GE RIS * BUN and Creatinine (01/31/2019 11:33 AM CMA OR LPN) BUN 12 7 - 21 mg/dL [facility] Creatinine 0.65 0.57 - 1.25 mg/dL [facility] EGFR 107Comment: ESTIMATED GFR IS mL/min/1.73 sq m [facility] NOT ACCURATE CREATININE [facility] CLEARANCE IN PR[facility]ICTING [facility] GLOMERULAR FILTRATION RATE. ESTIMATED GFR IS NOT APPLICABLE FOR DIALYSIS PATIENTS. Specimen Blood - Structure of left wrist (body structure) Performing Organization Address City/[facility] Centercode Ph one Number [facility] [address] [place], [place] [address] [facility] * Electrolytes (01/31/2019 11:33 AM CMA OR LPN) Sodium 139 136 - 145 meq/L [facility] Potassium 3.6 3.5 - 5.1 meq/L [facility] Chloride 106 98 - 107 meq/L [facility] CO2 28 22 - 29 meq/L [facility] Specimen Blood - Structure of left wrist (body structure) Performing Organization Address [facility] Ph one Number [facility] [address] [place], [place] [address] [facility] after 01/22/2019 Insurance Type Payer Benefit Subscriber ID Effective Phone Address Plan / Dates Group PPO BLUE CROSS/[employer]UE [employer] BCBS PPO [id number] 2017-P [address] EPO resent [id number] [place] [address] Advance Directives For more information, please contact: [phone] Date Inactivated Comments Code Status Date Activated 11/29/2019 7:27 PM Full Code 11/28/2019 5:18 PM This code status was determined by: Patient 10/19/2019 6:39 PM Full Code 10/17/2019 1:26 PM This code status was determined by: Patient 09/09/2019 1:10 PM Full Code 09/01/2019 10:46 AM This code status was determined by: Patient 06/23/2019 12:51 PM Full Code 06/22/2019 1:25 PM This code status was determined by: Patient 04/19/2015 6:48 PM Full Code 04/16/2015 6:43 PM This code status was determined by: Patient
--- OUTSIDE RECORDS SUMMARY | 2020-01-23 07:43 | XMS REPORT | Continuity of Care Document ---
Author Author [facility] t Organization [facility] Address [address] [place] [address] Phone Unavailable Care Team Providers Care Medical Attendant Name Role Phone NONSTAFF PCP Unavailable Otto WHITE Attphys Unavailable Isatu Zapata DO Attphys Liliam MISHRA, Selwyn Attphys Elisa MISHRA, Juan Carlos Rivera Attphys Michael MISHRA, Aicha Attphys Daniel MISHRA, Bernard Attphys Aiyana MISHRA, Alfonso Bey Attphys Isatu MISHRA, RSmith Kris Attphys [phone] Jp MISHRA, Nashid Attphys Estella MISHRA, Deepali Fuentes Attphys [phone] Oli MISHRA, Roz Attphys JP, NASHID Attphys Unavailable Federico MISHRA, Clifford Hyman Attphys David MISHRA, [place] Dietrich Attphys [phone] Wojciech Wright Attphys Unavailable Ria MISHRA, Renate Ortiz Attphys W[place] RAMIREZ Attphys Unavailable Vik MISHRA, Gregory Attphys GREGORY LOVING Attphys Unavailable Ismael MISHRA, Ranjit Rich Attphys Abram MISHRA, Manuel Rushing Attphys [phone] Sanchez MISHRA, Neal Crowell Attphys Reyna Preston Attphys REYNA PRESTON Attphys Unavailable ZEBALLOS, R LENNY Attphys Unavailable Noe JENSEN, Nayla Yanez Attphys Judith Dobbs MA, Katlin Attphys Unavailable MARY KAYNAYLA Attphys Unavailable Mary Kay Nayla KNAPP Attphys Piero MISHRA, Derick Cole Attphys [phone] Chance MISHRA, Lou Delaney Attphys Jose MISHRA, R. Titilola Attphys Cornelius MISHRA, Cornelio Attphys Edis MISHRA, Enedelia Weems Attphys Cindy MISHRA, Otto Patel Attphys Naeem MISHRA, Rg Attphys SHAHID VERA Attphys Unavailable Drea MISHRA, Wojciech Graff Attphys Wojciech SHEPARD DAJUAN Attphys Unavailable Amy MISHRA, L Earl Attphys [facility] DO, Amr Attphys Marnie MISHRA, Burton Attphys Venegas DO, Coye Attphys Kyara MISHRA, Porsche Attphys Hernandez MISHRA, Valentin Attphys Christian MISHRA, Torres Lowe Attphys Fiona Adkins MD, Harley Shaver Attphys [phone] Jordin MISHRA, Chung Nevarez Attphys Chung MCCALL Attphys Unavailable Harlan MISHRA, Jacobo Attphys Noe MISHRA, Nayla Suh Attphys Isatu COOK TRIRADHA Attphys Unavailable Joey MISHRA, Isatu Triradha Attphys Pallavi MISHRA, Kye Roberson Attphys KYE SHEFFIELD Attphys Unavailable Kevin MISHRA, Morena Attphys Ej MISHRA, Anna Jackson Attphys [phone] Phoenix MONTE, Jacinto Attphys Misty BRIGHT Attphys Unavailable Erika HINOJOSA Attphys Unavailable KIM NAVA Attphys Unavailable JOJO STANLEY Attphys Unavailable Hannah KWOK Attphys Unavailable Otto WHITE Admphys Unavailable LILIAMSELWYN HANDLEY Admphys Unavailable DEEPALI PETERSON Admphys Unavailable Renate ROLLINS Admphys Unavailable ABRAM RUPINDER Admphys Unavailable PIERO DERICKIgor COLE Admphys Unavailable Marnie MISHRA, Burton Admphys Kyara MISHRA, Porsche Admphys Noe MISHRA, Nayla Suh Admphys Payers Payer Name Policy Type Policy Number Effective Date Expiration Date S yaakov BCBSBCBS CHOICE PPO/FEDERAL EMPL [id number] 2017-Pre sentPPO [id number] 2017 00:00:00 [employer] [facility] [facility]UE CROSS[facility] POS EPO [id number], [place] [address]ILV [id number] 2017 00:00:00 [facility] Blue [facility] Ppo [id number] 2017 00:00:00 [facility] Community [facility] Choice [id number] 2016 00:00:00 [facility] Problems Condition Name Condition Details Condition Category Status Onset Date Resolution Date Last Treatment Date Treating Clinician Comments Source Nausea and vomiting Nausea and vomiting Disease Active 2020-01-08 00:00 :00 Kody Gilman Nausea and vomiting, intractability of v omiting not specified, unspecified vomiting type Nausea and vomiting, intractability of v omiting not specified, unspecified vomiting type Disease Active 2019-11-28 00:00:00 [facility] Intractable pain Intractable pain Disease Active 2019-10-17 00:00:00 [facility] Closed fracture of distal end of right r adius, unspecified fracture morphology, initial encounter Closed fracture of distal end of right r adius, unspecified fracture morphology, initial encounter Disease Active 2019-09-01 00:00:00 [facility] Acute pain of right wrist Acute pain of right wrist Disease Ac tive 2019-09-01 00:00:00 [facility] Closed fracture of right radius Closed fracture of right radius Dis ease Active 2019-09-01 00:00:00 [facility] Chronic abdominal pain Chronic abdominal pain Disease Active 2019-09-01 00:00:00 [facility] Intractable abdominal pain Intractable abdominal pain Disease Active 2019-06-22 00:00:00 [facility] Mechanical complication of internal orthopedic device Mechanical complication of internal orthopedic device Disease Active 2019-02-06 00:00:00 [facility] Lower abdominal pain Lower abdominal pain Disease Active 00:00:00 [facility] Lactic acid acidosis Lactic acid acidosis Disease Active 00:00:00 [facility] Cannabis abuse Cannabis abuse Disease Active 2017-09-16 00:00:00 [facility] Abdominal pain, acute, generalized Abdominal pain, acute, genera lized Disease Active 2017-09-15 00:00:00 [place] [facility] Abdominal pain Abdominal pain Disease Active 2017-09-06 00:00:00 [facility] Intractable vomiting with nausea Intractable vomiting with nause a Disease Active 2017-09-06 00:00:00 [facility] Endometriosis Endometriosis Disease Active 2017-09-06 00:00:00 [facility] Intractable vomiting without nausea Intractable vomiting without nausea Disease Active 2017-08-08 00:00:00 [facility] Chronic abdominal pain Chronic abdominal pain Disease Active 2017-08-08 00:00:[address] Hepatitis Hepatitis Disease Active 2017-08-05 00:00:00 [facility] Pelvic pain Pelvic pain Disease Active 2017-08-03 00:00:00 [facility] Intractable cyclical vomiting with nausea Intractable cyclical vomiting with nausea Disease Active 2016-01-16 00:00:00 [facility] Recurrent dislocation of forearm joint, right Recurren t dislocation of forearm joint, right Disease Active 2015-06-11 00:00:00 [facility] Fracture dislocation of wrist joint, right, with nonun ion, subsequent encounter Fracture dislocation of wrist joint, right, with nonunion, subsequent encounter Disease Active 2015-04-16 00:00:00 [facility] Irritable bowel syndrome Irritable bowel syndrome Disease Acti ve 2015-04-16 00:00:00 [facility] compl of int fix of bones of hand and fingers, se quela [facility] compl of int fix of bones of hand and fingers, sequela Disease Active 2015-03-14 0 0:00:00 [facility] Mechanical complication internal fixatio n device like nail, plate, ysaebl, subsequent encounter Mechanical complication internal fixatio n device like nail, plate, ysabel, subsequent encounter Disease Active 2014-12-27 00:00:00 [facility] Arthrodesis malunion, subsequent encounter Arthrodesis malunion, subsequent encounter Disease Active 2014-12-27 00:00:00 [facility] Subluxation of distal radioulnar joint of right wrist, subsequent encounter Subluxation of distal radioulnar joint of right wrist, subsequent encounter Disease Active 2014-11-20 00:00:00 [facility] Painful orthopaedic hardware Painful orthopaedic hardware Disease Active 2014-11-20 00:00:00 Overview: S/ p arthrodesis for distal radius resection. 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 00:00:00 [facility] Postoperative pain of extremity Postoperative pain of extremity Dis ease Active 2014-10-11 00:00:00 [facility] Pain, postoperative, acute Pain, postoperative, acute Disease Active 2014-09-28 00:00:00 [facility] Bone, giant cell tumor Bone, giant cell tumor Disease Active 2014-09-27 00:00:00 [facility] Osteoarthritis of spine Degenerative joint disease of spine Problem Active [facility] Spinal stenosis Problem Active [facility] Weakness Problem Active [facility] Osteoarthritis of spine Problem Active [facility] Seizure Problem Active [facility] Contusion Problem Active [facility] Sprain Problem Active [facility] Injury of head Problem Active [facility] Fracture of iliac crest Problem Active [facility] Anemia Problem Active [facility] Allergies, Adverse Reactions, Alerts Allergy Name Allergy Type Status Severity Reaction(s) Onset Date Inacti ve Date Treating Clinician Comments Source Codeine Allergy to Substance Active hives 2019-05-10 00:00:00 [facility] Codeine Allergy to substance Active rash/swelling 2019-02-17 00:00 :00 [facility] Codeine Propensity to adverse reactions to drug Active [facility] 2019-01-31 00:00:00 DizzyNOTE: HAS tolerated morphin e [facility] Codeine Propensity to adverse reactions Active [facility] 00:00:00 [facility] No Known Allergies DA Active U 2018-12-28 00:00:00 [facility] No Known Allergies DA Active U 2018-11-23 00:00:00 [facility] No Known Allergies DA Active U 2018-09-12 00:00:00 [facility] No Known Allergies DA Active U 2018-08-27 00:00:00 [facility] No Known Allergies DA Active U 2018-08-20 00:00:00 [facility] No Known Allergies DA Active U 2018-07-23 00:00:00 [facility] No Known Allergies DA Active U 2018-06-21 00:00:00 [facility] No Known Allergies DA Active U 2018-05-22 00:00:00 [facility] No Known Allergies DA Active U 2018-05-18 00:00:00 [facility] No Known Allergies DA Active U 2018-05-04 00:00:00 [facility] codeine DA Active U 2018-02-09 00:00:00 [facility] No Known Allergies DA Active U 2018-02-01 00:00:00 [facility] No Known Allergies DA Active U 2018-01-16 00:00:00 [facility] No Known Allergies DA Active U 2017-07-19 00:00:00 [facility] Family History Family Member Diagnosis Comments Start Date Stop Date Source Natural brother No Known Problems [facility] Natural brother Early [facility] Natural brother Heart disease [facility] Cousin No Known Problems [facility] Natural daughter No Known Problems [place] [facility] Natural father No Known Problems [facility] Maternal grandfather No Known Problems [facility] Maternal grandmother No Known Problems [facility] Maternal grandmother Diabetes [facility] Natural mother No Known Problems [facility] [employer] Natural mother Asthma [facility] Natural mother Cancer [facility] Paternal grandfather No Known Problems [facility] Paternal grandmother No Known Problems [facility] Natural sister No Known Problems [facility] Natural son No Known Problems [place] [facility] Family member Asthma [facility] Family member Diabetes [facility] Family member Heart failure [facility] Family member Hyperlipidemia [facility] Family member Hypertension [facility] Family member Migraines [facility] Family member Osteoarthritis [facility] Family member Rashes / Skin problems [facility] Family member Rheum arthritis [place] [facility] Family member Seizures [facility] Family member Stroke [facility] Family member Thyroid disease [place] [facility] Maternal aunt Cancer [facility] Social History Social Habit Start Date Stop Date Quantity Comments Source History SDOH Alcohol Std Drinks [facility] Exposure to SARS-CoV-2 (event) Not sure [facility] Sex Assigned At [facility] History SDOH Alcohol Binge 2020-01-08 00:00:00 2020-01-08 00:00:00 1 [facility] Alcohol Comment 2020-01-08 00:00:00 2020-01-08 00:00:00 patient states she did 15 years ago [facility] Tobacco use and exposure 2019-11-28 00:00:00 2019-11-28 00:00:00 Arely graham used [facility] Alcohol intake 2019-11-28 00:00:00 2019-11-28 00:00:00 Current non-drinker of alcohol (finding) [facility] History SDOH Alcohol Frequency 2018-10-31 00:00:00 2018-10-31 00:00:0 0 1 Kody Gilman Smoking Status Start Date Stop Date Source Never smoker [facility] Medications Ordered Medication Name Filled Medication Name Start Date Stop Da te Current Medication? Ordering Clinician Indication Dosage Frequency Signature (SIG) Comments Components Source omeprazole OTC (PriLOSEC OTC) 20 MG EC tablet 2020-01-12 12:13:2 6 Yes 20mg Q.5D Take 20 mg by mouth 2 (two) times a day. [facility] keTOROlac (TORadol) 10 mg tablet 2020-01-12 12:13:26 Yes 10mg Q6H Take 10 mg by mouth every 6 (six) hours as needed for moderate pain. [facility] Gilman ondansetron (ZOFRAN) 8 MG tablet 2020-01-12 12:13:26 Yes 8mg Q8H Take 8 mg by mouth every 8 (eight) hours as needed for nausea or vomiting. [facility] Gilman sertraline (ZOLOFT) 100 MG tablet 2020-01-12 12:13:26 Yes 100mg QD Take 100 mg by mouth daily. Kody Gilman ALPRAZolam (XANAX) 2 MG tablet 2020-01-12 12:13:26 Yes 2mg Q.[id number] Take 2 mg by mouth 3 (three) times a day. Kody Gilman hydrOXYzine (ATARAX) 50 MG tablet 2020-01-12 12:13:26 Yes 50mg Q.5D Take 50 mg by mouth 2 (two) times a day. Man [facility] lamoTRIgine (LaMICtal) 100 MG tablet 2020-01-12 12:13:26 Ye s 100mg Q.5D Take 100 mg by mouth 2 (two) times a day. Kody Gilman promethazine (PHENERGAN) 25 MG suppository 2020-01-12 12:13:26 Yes 25mg Q24H Insert 25 mg into the rectum daily as needed for nausea or vomit ing. Kody Gilman levETIRAcetam (KEPPRA) 1000 MG tablet 2020-01-12 12:13:26 Yes 1000mg Q.5D Take 1,000 mg by mouth 2 (two) times a day. Kody Gilman cyclobenzaprine (FLEXERIL) 10 mg tablet 2020-01-12 12:13:26 Yes 10mg Q.5D Take 10 mg by mouth 2 (two) times a day as needed for muscle spa sms. Kody Gilman ondansetron ODT (Zofran ODT) 4 MG disintegrating tablet 2020-01-12 00:00:00 2020-02-11 23:59:00 Yes 4mg Q8H Take 1 tablet (4 mg total) by mouth every 8 (eight) hours as needed for nausea or vomiting for up to 30 days. Kody Gilman nystatin (MYCOSTATIN) 100,000 unit/mL suspension 2020-01-12 00:00:00 2020-01-19 23:59:00 No 5mL Q.25D Take 5 mL by mouth 4 (four) times a day for 7 days. Swish in mouth Kody Gilman ciprofloxacin (Cipro) 500 MG tablet 2020-01-12 00:00:0 0 2020-01-19 23:59:00 No 500mg Q.5D Take 1 tablet ( 500 mg total) by mouth 2 (two) times a day for 7 days. Kody Gilman omeprazole (PRILOSEC) 40 MG capsule 2019-11-29 17:27:28 Yes 40mg Q.5D Take 40 mg by mouth 2 (two) times daily. [facility] lamoTRIgine (LAMICTAL) 25 MG tablet 2019-11-29 17:27:28 Yes 25mg QD Take 25 mg by mouth every evening. [facility] ALPRAZolam (XANAX) 2 MG tablet 2019-11-29 17:27:28 Yes 1{tbl} Q.[id number] Take 1 tablet by mouth 3 (three) times daily. [facility] levETIRAcetam (KEPPRA) 1000 MG tablet 2019-11-29 17:27:28 Yes 1000mg Q.5D Take 1,000 mg by mouth 2 (two) times daily . [facility] metoprolol (TOPROL-XL) 25 MG 24 hr tablet 2019-11-29 17:27:28 Yes 25mg QD Take 25 mg by mouth daily. [facility] sertraline (ZOLOFT) 100 MG tablet 2019-11-29 17:27:28 Yes 100mg QD Take 100 mg by mouth daily. [facility] gabapentin (NEURONTIN) 100 MG capsule 2019-11-29 17:27:28 Y es every 6 (six) hours . [facility] hydrOXYzine (ATARAX) 25 MG tablet 2019-11-29 17:27:28 Yes QD nightly . [facility] traMADoL (ULTRAM) 50 mg tablet 2019-10-22 17:39:12 2019-10-01 3 00:00:00 No acute pain 50mg Q6H Take 50 mg by mouth every 6 (six) hours as needed for moderate pain .acute pain. [facility] cyclobenzaprine (FLEXERIL) 10 mg tablet 00:00:00 2020-01-08 00:00:00 No 10mg Q.5D Take 1 tablet (10 mg total) by mouth 2 (two) times a day as needed for muscle spasms for up to 10 doses. Kody Gilman estradiol (VIVELLE-DOT) 0.1 mg/24 hr 2019-10-02 08:07: 22 2019-10-02 00:00:00 No 1{patch} Q.5W Place 1 patch o n the skin 2 (two) times a week. Wednesday & Wednesday Kody Gilman gabapentin (NEURONTIN) 300 mg capsule 2019-10-02 00:00 :00 2019-10-07 23:59:00 No 300mg Q.[id number] Take 1 capsule (300 mg total) by mouth 3 (three) times a day for 5 days. Kody Gilman HYDROcodone-acetaminophen (NORCO) 10-325 mg per tablet 2019-10-02 00:00:00 2019-10-07 23:59:00 No acute pain 1{tbl} Q6H Take 1 tablet by mouth every 6 (six) hours as needed for moderate pain for up to 5 days .acute pain. Max Daily Amount: 4 tablets Kody Gilman methocarbamoL (ROBAXIN) 500 MG tablet 2019-10-02 00:00 :2019-10-07 23:59:00 No 500mg Q.[id number] Take 1 tablet (500 mg total) by mouth 3 (three) times a day for 5 days. Kody Gilman Ondansetron Hcl (Zofran*) 4 Mg TABLET Ondansetron Hcl (Zofra n*) 4 Mg TABLET 2019-09-23 17:38:00 Yes 4 Three Times A Day for Vomiting [facility] Promethazine Hcl (Phenergan Supp*) 25 Mg SUPP Prometha zine Hcl (Phenergan Supp*) 25 Mg SUPP 2019-09-23 17:38:00 Yes 25 T hree Times A Day as needed for Vomiting [facility] traMADoL (ULTRAM) 50 mg tablet 2019-09-09 00:00:00 Yes 50mg Take 1 tablet (50 mg total) by mouth every 6 (six) hours as needed for up to 20 doses. Max Daily Amount: 200 mg [facility] traMADoL (ULTRAM) 50 mg tablet 2019-09-09 00:00:2019-09-09 00 :00:00 No 50mg Take 1 tablet (50 mg total) by mouth every 6 (six) hours as needed for up to 20 doses. Max Daily Amount: 200 mg [facility] ketorolac (TORADOL) 10 mg tablet 2019-08-30 00:00:00 Yes 10mg Take 10 mg by mouth every 8 (eight) hours as needed . [facility] ondansetron (ZOFRAN-ODT) 4 MG disintegrating tablet 2019-08-07 00:00:00 2019-08-14 23:59:00 No 4mg Take 1 tablet (4 mg total) by mouth every 8 (eight) hours as needed for Nausea for up to 7 days. [facility] promethazine (PHENERGAN) 25 MG suppository 07-28 22:16:07 2019-07-29 00:00:[address] 25 mg re ctally every 6 (six) hours as needed for Nausea. [facility] promethazine (PHENERGAN) 25 MG tablet 2019-07-29 00:00 :00 2019-08-05 23:59:00 No 12.5mg Take 0.5 tablet s (12.5 mg total) by mouth every 6 (six) hours as needed for Nausea for up to 7 days. [facility] ondansetron (ZOFRAN) 4 MG tablet 2019-06-23 00:00:00 Yes 4mg Take 1 tablet (4 mg total) by mouth 3 (three) times daily as needed for Nausea for up to 30 doses. [facility] ondansetron (ZOFRAN) 4 MG tablet 2019-06-23 00:00:00 2019-05 00:00:00 No 4mg Take 1 tablet (4 mg total) by mouth 3 (three) times daily as needed for Nausea for up to 30 doses. [facility] gabapentin (NEURONTIN) 100 MG capsule 2019-06-22 16:37 :08 2019-06-22 00:00:00 No [facility] ondansetron (ZOFRAN) 4 MG tablet 2019-03-27 00:00:00 2019-05 00:00:00 No 4mg Take 1 tablet (4 mg total) by mouth 3 (three) times daily as needed for Nausea for up to 10 doses. [facility] traMADol (ULTRAM) 50 mg tablet 2019-03-27 00:00:00 2019-06-22 00 :00:00 No 50mg Take 1 tablet (50 mg total) by mouth every 6 (six) hours as needed for up to 15 doses. Max Daily Amount: 200 mg [facility] ondansetron (ZOFRAN-ODT) 4 MG disintegrating tablet 2019-03-19 10:04:15 2019-03-19 00:00:00 No 4mg Take 4 mg by mouth every 6 (six) hours as needed for Nausea. [facility] ondansetron (ZOFRAN-ODT) 4 MG disintegrating tablet 2019-03-19 00:00:00 2019-06-22 00:00:00 No 4mg Take 1 tablet (4 mg total) by mouth every 8 (eight) hours as needed for up to 12 doses. [facility] promethazine (PHENERGAN) 25 MG tablet 2019-02-18 00:15 :48 2019-02-18 00:00:00 No 25mg Take 25 mg by mouth every 6 (six) hours as needed for Nausea. [facility] traMADol (ULTRAM) 50 mg tablet 2019-02-18 00:00:00 2019-09-09 00 :00:00 No 50mg Take 1 tablet (50 mg total) by mouth every 6 (six) hours as needed for up to 15 doses. Max Daily Amount: 200 mg [facility] ondansetron (ZOFRAN-ODT) 4 MG disintegrating tablet 2019-02-18 00:00:00 2019-03-19 00:00:00 No 4mg Take 1 tablet (4 mg total) by mouth every 8 (eight) hours as needed for up to 12 doses. [facility] hyoscyamine (ANASPAZ,LEVSIN) 0.125 mg tablet 201 11-10-02 10:48:47 2019-01-31 00:00:00 No 1{tbl} Take 1 tablet by mouth every 4 (four) hours as needed for Cramping. [facility] amitriptyline (ELAVIL) 25 MG tablet 2019-01-31 10:48:0 7 2019-01-31 00:00:00 No 25mg QD Take 25 mg by mouth daily. [facility] Promethazine Hcl (Phenergan) 25 Mg/1 Ml AMPUL Prometha zine Hcl (Phenergan) 25 Mg/1 Ml AMPUL 2019-01-06 11:00:00 Yes 12.5 Every 8 Hours as needed for Nausea/Vomiting [facility] gabapentin (NEURONTIN) 100 MG capsule 2018-08-25 00:00 :00 2019-01-31 00:00:00 No 100mg Q.[id number] Take 1 capsule (100 mg total) by mouth 3 (three) times daily. [facility] gabapentin (NEURONTIN) 100 MG capsule 2018-08-25 00:00 :00 2019-01-31 00:00:00 No 100mg Q.[id number] Take 1 capsule (100 mg total) by mouth 3 (three) times daily. [facility] lamoTRIgine (LaMICtal) 25 MG tablet 2018-07-27 00:00:0 0 2019-07-27 23:59:00 No 25mg QD Take 1 tablet (25 mg total) by mouth renata Gilman sertraline (ZOLOFT) 100 MG tablet 2018-07-27 00:00:00 2019 23:59:00 No 100mg QD Take 1 tablet (100 mg total) by mouth silas Gilman ondansetron (ZOFRAN) 4 MG tablet 2018-07-26 00:00:00 2019-09 00:00:00 No 4mg Q8H Take 1 tablet (4 mg total) by mouth every 8 (eight) hours as needed for nausea or vomiting. Kody Gilman levETIRAcetam (KEPPRA) 1000 MG tablet 2018-07-26 00:00 :00 2019-07-26 23:59:00 No 1000mg Q.5D Take 1 tablet (1,000 mg t otal) by mouth 2 (two) times a day. Kody Gilman estradiol (VIVELLE-DOT) 0.1 mg/24 hr patch 10-08 00:00:00 2019-01-31 00:00:00 No 1{patch} Q.5W Place 1 patch onto the skin tw ice a week. [facility] HYDROcodone-acetaminophen (NORCO 10-325) 10-325 mg per table t 2017-10-01 00:00:00 2019-01-31 00:00:00 No 1{tbl} Take 1 tablet by mouth every 6 (six) hours as needed for Pain . [facility] dicyclomine (BENTYL) 20 mg tablet 2015-09-24 00:00:00 2018 00:00:00 No 20mg Take 20 mg by ca ut 3 (three) times daily as needed (For abdominal pain/spasm.) . [facility] Alprazolam Alprazolam Yes [facility] Escitalopram Oxalate Escitalopram Oxalate Yes [facility] Estradiol Estradiol Yes [facility] Gabapentin Gabapentin Yes [facility] Hydroxyzine Hcl Hydroxyzine Hcl Yes [facility] Lamotrigine Lamotrigine Yes 25 Daily [facility] Levetiracetam Levetiracetam Yes [facility] Metoprolol Tartrate (Lopressor) 25 Mg TAB Metoprolol T artrate (Lopressor) 25 Mg TAB Yes [facility] Norethindrone Acetate Norethindrone Acetate Yes [facility] Ondansetron Hcl Ondansetron Hcl Yes [facility] Promethazine Hcl (Phenergan Supp*) 25 Mg SUPP Prometha zine Hcl (Phenergan Supp*) 25 Mg SUPP Yes [facility] Sertraline Hcl Sertraline Hcl Yes [facility] Alprazolam (Xanax) 2 Mg TABLET Alprazolam (Xanax) 2 Mg TABLET 2019-01-06 00:00:00 No [facility] Lorazepam Lorazepam 2017-05-31 00:00:00 No 1 As Ne eded [facility] Pantoprazole Sodium (Protonix) 40 Mg TABLET. Pantopr azole Sodium (Protonix) 40 Mg TABLET. 2017-05-31 00:00:00 No 40 Daily [facility] Promethazine Hcl (Phenergan) 25 Mg TABLET Promethazine Hcl (Phenergan) 25 Mg TABLET 2017-05-31 00:00:00 No 25 As Needed [facility] Vital Signs Vital Name Observation Time Observation Value Comments Source Systolic blood pressure 2020-01-12 08:53:25 189 mm[Hg] Kody Gilman Diastolic blood pressure 2020-01-12 08:53:25 100 mm[Hg] Kody Gilman Heart rate 2020-01-12 08:53:25 66 /min Kody Gilman Body temperature 2020-01-12 08:53:25 37 Perlita Man Gilman Respiratory rate 2020-01-12 08:53:25 18 /min Man Gilman Oxygen saturation in Arterial blood by Pulse oximetry 2019-03 08:53:25 99 /min Kody Gilman Body weight 2020-01-12 07:00:00 78.291 kg Kody Lamaist BMI 2020-01-12 07:00:00 32.61 kg/m2 [facility] Body height 2020-01-08 08:13:00 154.9 cm Kody Gilman Systolic blood pressure 2019-11-29 10:08:00 129 mm[Hg] [facility] Diastolic blood pressure 2019-11-29 10:08:00 84 mm[Hg] [facility] Heart rate 2019-11-29 10:08:00 85 /min [facility] Body temperature 2019-11-29 10:08:00 36.78 Perlita [facility] Respiratory rate 2019-11-29 10:08:00 18 /min [facility] Oxygen saturation in Arterial blood by Pulse oximetry 11-28 10:08:00 98 /[facility] 2019-11-28 07:01:00 154.9 cm [facility] Body weight 2019-11-28 07:01:00 81.194 kg [facility] BMI 2019-11-28 07:01:00 33.82 kg/m2 [facility] Weight 2019-09-23 18:00:00 171 [lb_av] [facility] BMI (Body Mass Index) 2019-09-23 18:00:00 32.3 kg/m2 [facility] Body Temperature 2019-08-30 00:31:00 98.7 [degF] [facility] Weight 2019-08-29 20:10:00 171 [lb_av] [facility] BMI (Body Mass Index) 2019-08-29 20:10:00 32.3 kg/m2 [facility] Procedures Procedure Date / Time Performed Performing Clinician Sour e HC COMPLETE BLD COUNT W/AUTO DIFF 2020-01-12 04:59:00 Misty Bell COMPREHENSIVE METABOLIC PANEL 2020-01-12 04:59:00 Selwyn Bell ESTIMATED GFR 2020-01-12 04:59:00 Selwyn Bell odist ESOPHAGOGASTRODUODENOSCOPY (EGD) 2020-01-11 07:18:00 [place]am [place] Kody Gilman COMPREHENSIVE METABOLIC PANEL 2020-01-11 04:00:00 Selwyn Bell ESTIMATED GFR 2020-01-11 04:00:00 Selwyn Bell odgilda HC COMPLETE BLD COUNT W/AUTO DIFF 2020-01-11 03:40:00 Misty Bell PROCALCITONIN 2020-01-10 17:15:00 Analisa Abreu C-REACTIVE PROTEIN 2020-01-10 17:15:00 Analisa Abreu M ethodist COMPREHENSIVE METABOLIC PANEL 2020-01-10 00:33:00 Selwyn Bell MAGNESIUM LEVEL 2020-01-10 00:33:00 Selwyn Bell odgilda PHOSPHORUS LEVEL 2020-01-10 00:33:00 Selwyn Bell hodgilda ESTIMATED GFR 2020-01-10 00:33:00 Selwyn Bell odist HC COMPLETE BLD COUNT W/AUTO DIFF 2020-01-10 00:20:00 Misty Bell XR CHEST 2 VW 2020-01-09 09:33:00 Selwyn Bell MRI PELVIS W WO CONTRAST 2020-01-09 08:38:35 Uche Nassar HC COMPLETE BLD COUNT W/AUTO DIFF 2020-01-09 06:00:00 Misty Bell COMPREHENSIVE METABOLIC PANEL 2020-01-09 04:00:00 Selwyn Bell MAGNESIUM LEVEL 2020-01-09 04:00:00 Selwyn Bell odist ESTIMATED GFR 2020-01-09 04:00:00 Selwyn Bell odist POC GLUCOSE 2020-01-08 23:25:00 Miguel Pérez LAMOTRIGINE LEVEL 2020-01-08 21:45:00 Selwyn Bell thodist HEMOGLOBIN A1C 2020-01-08 21:45:00 Selwyn Bell Meth odgilda LACTIC ACID LEVEL, SEPSIS - NOW AND REPEAT 2X EVERY 3 HOURS 2020-01-08 21:45:00 Selwyn Bell XR PICC CHEST PORTABLE 2020-01-08 18:49:56 Selwyn Bell [facility] PICC INSERTION REQUEST 2020-01-08 18:44:05 Jaret Woo [facility] TOTAL IRON BINDING CAPACITY 2020-01-08 16:29:00 Selwyn Bell FERRITIN LEVEL 2020-01-08 16:29:00 Selwyn Bell Meth odist VITAMIN B12 LEVEL 2020-01-08 16:29:00 Selwyn Bell Me thodist COVID-19 QUALITATIVE PCR 2020-01-08 14:00:00 Dung Zapata LACTIC ACID LEVEL 2020-01-08 14:00:[address] ABDOMEN PELVIS W CONTRAST 2020-01-08 11:05:05 Dung Zapata US PELVIC TRANSABDOMINAL 2020-01-08 09:45:00 Dung Zapata URINE CULTURE 2020-01-08 09:14:00 Dung Zapata HC COMPLETE BLD COUNT W/AUTO DIFF 2020-01-08 09:14:00 Mik Zapata COMPREHENSIVE METABOLIC PANEL 2020-01-08 09:14:00 Salomon Zapata LIPASE LEVEL 2020-01-08 09:14:00 Dung Zapata URINALYSIS SCREEN AND MICROSCOPY, WITH REFLEX TO CULTURE 09:14:00 Dung Zapata ESTIMATED GFR 2020-01-08 09:14:00 Dung Zapata ethodist LACTIC ACID LEVEL 2020-01-08 09:14:00 Dung Zapata [place] [facility], E/M 30-74 MINUTES 2020-01-08 08:49:39 Dung Zapata XR ABDOMEN ACUTE INC CHEST 1V 2019-12-26 22:50:30 Isidra Proctor HC COMPLETE BLD COUNT W/AUTO DIFF 2019-12-26 20:37:00 Kris Thompson COMPREHENSIVE METABOLIC PANEL 2019-12-26 20:37:00 Kris Lunsford LIPASE LEVEL 2019-12-26 20:37:00 Kris Lunsford ESTIMATED GFR 2019-12-26 20:37:00 Kris Lunsford BASIC METABOLIC PANEL (7) 2019-11-29 03:39:00 Alfredo [facility] 2019-11-29 03:39:00 [facility]UM 2019-11-29 03:39:00 Alfredo [facility] CBC W/PLT COUNT & AUTO DIFFERENTIAL 2019-11-29 03:39:00 Alfredo Rivas [facility] URINALYSIS W/ REFLEX URINE CULTURE 2019-11-28 17:13:00 Miguel [facility] SCREEN, URINE 2019-11-28 17:13:00 Miguel [facility] SARS-COV2/RT-PCR ([facility]) 2019-11-28 15:11:00 Miguel [facility] CBC W/PLT COUNT & AUTO DIFFERENTIAL 2019-11-28 12:35:00 Jp [facility] COMPREHENSIVE METABOLIC PANEL 2019-11-28 12:25:00 Jp [facility] LIPASE 2019-11-28 12:25:00 Jp [facility] CT ABDOMEN PELVIS WO CONTRAST 2019-11-26 10:37:53 Tu, YeDaiana Gilman COMPREHENSIVE METABOLIC PANEL 2019-11-26 10:20:00 TuBoogie LIPASE LEVEL 2019-11-26 10:20:00 Boogie Caballero LACTIC ACID LEVEL, SEPSIS - NOW AND REPEAT 2X EVERY 3 HOURS 2019-11-26 10:20:00 Boogie Caballero ESTIMATED GFR 2019-11-26 10:20:00 TuBoogie URINE CULTURE 2019-11-26 10:17:00 Tu, YenRomeo Clifford Gilman URINALYSIS SCREEN AND MICROSCOPY, WITH REFLEX TO CULTURE 202 09:25:00 Tu, YenKeenanJethro Clifford Gilman HCG QUALITATIVE, URINE SCREEN 2019-11-26 09:25:00 Tu, Yen-Te Bartolome rapp Kody Gilman HC COMPLETE BLD COUNT W/AUTO DIFF 2019-11-26 09:20:00 Tu, YenKeenanJethro Clifford Gilman URINE CULTURE 2019-10-22 16:53:00 Enedelia Bower ethodist URINALYSIS SCREEN AND MICROSCOPY, WITH REFLEX TO CULTURE 202 16:24:00 Enedelia Bower HCG QUALITATIVE, URINE SCREEN 2019-10-22 16:24:00 Emily Bower HC COMPLETE BLD COUNT W/AUTO DIFF 2019-10-22 16:24:00 Helen Bower COMPREHENSIVE METABOLIC PANEL 2019-10-22 16:24:00 Emily Bower LIPASE LEVEL 2019-10-22 16:24:00 Enedelia Bower ethodist ESTIMATED GFR 2019-10-22 16:24:00 Enedelia Bower ethodist PROTHROMBIN TIME WITH INR 2019-10-22 16:24:00 Enedelia Bower PARTIAL THROMBOPLASTIN TIME (PTT) 2019-10-22 16:24:00 Helen Bower SARS-COV2/RT-PCR ([facility]) 2019-10-17 13:07:00 Kaur Mar [facility] URINALYSIS W/ REFLEX URINE CULTURE 2019-10-17 12:20:00 Kaur Mar [facility] CT ABDOMEN/PELVIS WITH IV CONTRAST 2019-10-17 11:26:00 Kaur Mar [facility] BASIC METABOLIC PANEL (7) 2019-10-17 09:51:00 Kaur Ramirez [facility] LIPASE 2019-10-17 09:51:00 Kaur Ramirez [facility] I [facility] HEPATIC FUNCTION PANEL 2019-10-17 09:51:00 Kaur Ramirez [facility] CBC W/PLT COUNT & AUTO DIFFERENTIAL 2019-10-17 09:51:00 Kaur Telles [facility] COMPREHENSIVE METABOLIC PANEL 2019-10-16 11:44:00 Zeinali, [facility] LIPASE 2019-10-16 11:44:00 Zeinal, [facility] LACTIC ACID, VENOUS 2019-10-16 11:44:00 Zeinal, [facility] PHOSPHORUS 2019-10-16 11:44:00 Zeinal, [facility] MAGNESIUM 2019-10-16 11:44:00 Zemaria [facility], [facility] SCREEN, URINE 2019-10-16 11:12:00 [facility] URINALYSIS W/ REFLEX URINE CULTURE 2019-10-16 11:12:00 Zemaria [facility], [facility] CBC W/PLT COUNT & AUTO DIFFERENTIAL 2019-10-16 10:50:[facility] W/AUTO DIFF 2019-10-03 07:13:00 Kd Win COMPREHENSIVE METABOLIC PANEL 2019-10-03 04:00:00 Kd Bronson TOTAL IRON BINDING CAPACITY 2019-10-03 04:00:00 Kd Bronson FERRITIN LEVEL 2019-10-03 04:00:00 Kd Bronson [facility] TRANSFERRIN LEVEL 2019-10-03 04:00:00 Kd Brons[place]on [facility] ESTIMATED GFR 2019-10-03 04:00:00 Juan Pablo Bradford XR CHEST 1 VW PORTABLE 2019-10-02 08:20:00 Benja Bennett [facility] CREATINE KINASE, TOTAL (CPK) 2019-10-02 05:55:00 Bradford, Juan Pablo De Jesus Vitaliy [facility] LIPASE LEVEL 2019-10-02 05:55:00 Bradford, Juan Pablo De Jesus Vitaliy [facility] MAGNESIUM LEVEL 2019-10-02 05:55:00 Bradford, Juan Pablo Burks [facility] HEMOGLOBIN A1C 2019-10-02 05:55:00 Bradford, Juan Pablo Burks [facility] COMPREHENSIVE METABOLIC PANEL 2019-10-02 05:55:00 Bradford, Juan Pablo Burks [facility] ESTIMATED GFR 2019-10-02 05:55:00 Bradford, Juan Pablo Burks [facility] CBC WITH PLATELET AND DIFFERENTIAL 2019-10-02 05:55:00 Bradford, Ca m Nael Vitaliy [facility] URINE DRUGS OF ABUSE SCREEN 2019-10-02 05:00:00 Benja Bennett XR PELVIS 3+ VW 2019-10-02 00:30:15 Zoila Hartman [facility] COVID-19 QUALITATIVE PCR 2019-10-02 00:08:00 Zoila Hartman LACTIC ACID LEVEL, SEPSIS - NOW AND REPEAT 2X EVERY 3 HOURS 2019-10-01 23:45:[address] ABDOMEN PELVIS W CONTRAST 2019-10-01 22:53:22 Zoila Hartman ECG 12-LEAD 2019-10-01 22:11:12 Zoila Hartman [facility] URINE CULTURE 2019-10-01 21:45:00 Zoila Hartman [facility] HC COMPLETE BLD COUNT W/AUTO DIFF 2019-10-01 21:45:00 Uche Hartman COMPREHENSIVE METABOLIC PANEL 2019-10-01 21:45:00 Anna Hartman URINALYSIS SCREEN AND MICROSCOPY, WITH REFLEX TO CULTURE 21:45:00 Zoila Hartman HCG QUALITATIVE, URINE SCREEN 2019-10-01 21:45:00 Anna Hartman ESTIMATED GFR 2019-10-01 21:45:00 Zoila Hartman [facility] LACTIC ACID LEVEL, SEPSIS - NOW AND REPEAT 2X EVERY 3 HOURS 2019-10-01 21:45:00 Zoila Hartman [facility] LIPASE LEVEL 2019-10-01 21:45:00 Zoila Hartman [facility] COMPREHENSIVE METABOLIC PANEL 2019-09-30 03:46:00 PrestonJohn [facility] CBC W/PLT COUNT & AUTO DIFFERENTIAL 2019-09-30 02:13:00 Heide Preston [facility] X-ray of chest, two views 2019-09-23 00:00:00 [facility] COMPREHENSIVE METABOLIC PANEL 2019-09-08 04:32:00 Chance, [facility] COMPREHENSIVE METABOLIC PANEL 2019-09-07 03:22:00 Chance, [facility] SARS-COV2/RT-PCR ([facility]) 2019-09-06 23:53:00 Chance, [facility] ANESTHESIA PERIPHERAL BLOCK 2019-09-06 13:43:37 Norma Burger [facility] FL FLUORO NON-SPECIFIC UP TO 1 HOUR 2019-09-06 13:00:00 Jorge White [facility] ORIF,RADIUS 2019-09-06 09:10:00 Jorge White [facility] PROCEDURE W/MINI C-ARM 2019-09-06 09:10:00 Jorge White [facility] GRAFT,BONE ILIAC CREST 2019-09-06 09:10:00 Jorge White [facility] CBC (HEMOGRAM ONLY) 2019-09-06 04:53:00 Kelsey Harry [facility] PHOSPHORUS 2019-09-06 04:53:00 Kelsey Harry [facility] MAGNESIUM 2019-09-06 04:53:00 Kelsey Harry [facility] COMPREHENSIVE METABOLIC PANEL 2019-09-06 04:53:00 Chance, [facility] CBC (HEMOGRAM ONLY) 2019-09-05 19:18:00 Kelsey Harry [facility] PHOSPHORUS 2019-09-05 19:18:00 Kelsey Harry [facility] MAGNESIUM 2019-09-05 19:18:00 Kelsey Harry [facility] COMPREHENSIVE METABOLIC PANEL 2019-09-05 19:18:00 Chance, [facility] IR NON-TUNNELED DIALYSIS CATHETER INSERTION 2019-09-05 17:25 :00 Chance, [facility] CERULOPLASMIN 2019-09-04 13:23:00 Kayden Tobias [facility] ANTI-NUCLEAR ANTIBODY (SHAUNNA) 2019-09-04 13:23:00 Kayden Tobias [facility] ACTIN (SMOOTH MUSCLE) ANTIBODY, IGG 2019-09-04 13:23:00 Kayden Tobias [facility] ANTI-MITOCHONDRIAL AB, REFLEX TO TITER 2019-09-04 13:23:00 Kayden Mckenna [facility] EBV VIRAL LOAD 2019-09-04 13:23:00 Kayden Tobias [facility] CMV PCR, QUANTITATIVE 2019-09-04 13:23:00 Kayden Tobias [facility] HERPES VIRUS ANTIBODY, IGM 2019-09-04 13:23:00 Kayden Tobias [facility] MITOCHONDRIAL AB SCREEN 2019-09-04 13:23:00 Kayden Tobias [facility] MITOCHONDRIAL AB TITER 2019-09-04 13:23:00 Kayden Tobias [facility] FERRITIN 2019-09-04 04:45:00 Kayden Tobias [facility] CBC (HEMOGRAM ONLY) 2019-09-04 04:45:00 Kelsey Harry [facility] PHOSPHORUS 2019-09-04 04:45:00 Kelsey Harry [facility] MAGNESIUM 2019-09-04 04:45:00 Kelsey Harry [facility] COMPREHENSIVE METABOLIC PANEL 2019-09-04 04:45:00 Chance, Annkayce [facility] ALPHA FETOPROTEIN (AFP), TUMOR MARKER 2019-09-04 04:45:00 De erika Mann [facility] HEPATITIS B SURFACE ANTIBODY 2019-09-03 17:53:00 Brookfield [facility] HEPATITIS B CORE ANTIBODY, TOTAL 2019-09-03 17:53:00 Unruly MannHeide [facility] HEPATITIS A ANTIBODY, IGG 2019-09-03 17:53:00 Unruly Mann Kaydenholly Nichols [facility] IRON, TIBC, % SAT. (WITHOUT FERRITIN) 2019-09-03 17:53:00 Tirado [facility] [id number]\\, SERUM 2019-09-03 [facility]:52[facility] & WITHOUT IV CONTRAST 2019-09-03 16:53:00 Javi Chaudhry [facility] CBC (HEMOGRAM ONLY) 2019-09-03 02:34:00 Kelsey Harry [facility] PHOSPHORUS 2019-09-03 02:34:00 Kelsey Harry [facility] MAGNESIUM 2019-09-03 02:34:00 Kelsey Harry [facility] COMPREHENSIVE METABOLIC PANEL 2019-09-03 02:34:00 [facility]BD[facility]EN LIMITED 2019-09-02 04:22:00 Kelsey Harry [facility] HEPATITIS PANEL, ACUTE 2019-09-02 03:20:00 Kelsey Harry [facility] CBC (HEMOGRAM ONLY) 2019-09-02 03:20:00 Kelsey Harry [facility] BASIC METABOLIC PANEL (7) 2019-09-02 03:20:00 Kelsey Harry [facility] PHOSPHORUS 2019-09-02 03:20:00 Kelsey Harry [facility] MAGNESIUM 2019-09-02 03:20:00 Kelsey Harry [facility] HEPATIC FUNCTION PANEL 2019-09-02 03:20:00 Kelsey Harry [facility] CBC (HEMOGRAM ONLY) 2019-09-01 12:47:00 Kelsey Harry [facility] COMPREHENSIVE METABOLIC PANEL 2019-09-01 12:47:00 [facility]R 2019-09-01 12:47:00 Kelsey Harry ret [facility] SARS-COV2/RT-PCR ([facility]) 2019-09-01 12:26:00 Natanael nKelsey [facility] XR WRIST RIGHT COMPLETE (MIN 3 VIEWS) 2019-09-01 08:37:00 Gayatri Juan [facility] COMPREHENSIVE METABOLIC PANEL 2019-08-07 11:44:00 John Preston [facility] CBC W/PLT COUNT & AUTO DIFFERENTIAL 2019-08-07 11:44:00 Heide Preston [facility] URINALYSIS W/ REFLEX URINE CULTURE 2019-07-29 20:57:00 [facility] CT ABDOMEN/PELVIS WITH IV CONTRAST 2019-07-29 20:51:00 [facility] CBC W/PLT COUNT & AUTO DIFFERENTIAL 2019-07-29 20:05:00 Vik [facility] LIPASE 2019-07-29 19:07:00 Zeame [facility] COMPREHENSIVE METABOLIC PANEL 2019-07-29 19:07:00 Zeinalnico Ideen [facility] PLACE NEEDLE IN VEIN 2019-07-29 18:24:41 Vik [facility] BASIC METABOLIC PANEL (7) 2019-06-23 03:50:00 Diana Rollins [facility] MAGNESIUM 2019-06-23 03:50:00 Diana Rollins [facility] PHOSPHORUS 2019-06-23 03:50:00 Diana Rollins [facility] CBC W/PLT COUNT & AUTO DIFFERENTIAL 2019-06-23 03:50:00 Diana Rollins [facility] URINALYSIS W/ REFLEX URINE CULTURE 2019-06-22 23:32:00 Drea Dajuan A [facility] SARS-COV2/RT-PCR ([facility]) 2019-06-22 12:32:00 Shaheed Shepardhen Wojciech [facility] XR CHEST 1 VIEW PORTABLE/BEDSIDE 2019-06-22 12:21:[facility] 2019-06-22 10:51:00 Shaheed Shepardhen Wojciech [facility] BASIC METABOLIC PANEL (7) 2019-06-22 10:51:00 Dajuan Shepard [facility] CBC W/PLT COUNT & AUTO DIFFERENTIAL 2019-06-22 10:51:00 Dajuan Shepard [facility] CT ABDOMEN PELVIS W CONTRAST 2019-06-21 10:44:00 Bethany Reyes URINE CULTURE 2019-06-21 10:33:00 Earl Reyes M ethodist HC COMPLETE BLD COUNT W/AUTO DIFF 2019-06-21 09:45:00 Earl Reyes PROTHROMBIN TIME WITH INR 2019-06-21 09:45:00 Earl Reyes PARTIAL THROMBOPLASTIN TIME (PTT) 2019-06-21 09:45:00 Earl Reyes COMPREHENSIVE METABOLIC PANEL 2019-06-21 09:45:00 Melendez LIPASE LEVEL 2019-06-21 09:45:00 Earl Reyes ethodist LACTIC ACID LEVEL, SEPSIS - NOW AND REPEAT 2X EVERY 3 HOURS 2019-06-21 09:45:00 Earl Reyes URINALYSIS SCREEN AND MICROSCOPY, WITH REFLEX TO CULTURE 09:45:00 Earl Reyes CREATINE KINASE, TOTAL (CPK) 2019-06-21 09:45:00 Bethany Reyes ESTIMATED GFR 2019-06-21 09:45:00 Earl Reyes ethodist URINE CULTURE 2019-03-31 06:05:00 Ranjit Wise URINALYSIS SCREEN AND MICROSCOPY, WITH REFLEX TO CULTURE 05:45:00 Ranjit Wise COMPREHENSIVE METABOLIC PANEL 2019-03-31 05:45:00 Ranjit Wise ESTIMATED GFR 2019-03-31 05:45:00 Ranjit Wise LIPASE LEVEL 2019-03-31 05:45:00 Ranjit Wise HC COMPLETE BLD COUNT W/AUTO DIFF 2019-03-31 05:10:00 Ranjit Wise PROTHROMBIN TIME WITH INR 2019-03-31 05:10:00 David Wise HCG QUALITATIVE, SERUM SCREEN 2019-03-31 05:10:00 Ranjit Wise ECG ED PRELIMINARY INTERPRETATION 2019-03-31 04:59:05 Ranjit Wise ECG 12-LEAD 2019-03-31 04:56:38 Ranjit Wise LIPASE 2019-03-27 18:41:00 Lizette Grimes [facility] MAGNESIUM 2019-03-27 18:41:00 Lizette Grimes [facility] PHOSPHORUS 2019-03-27 18:41:00 Lizette Grimes [facility] HEPATIC FUNCTION PANEL 2019-03-27 18:41:00 Lizette Grimes [facility] BASIC METABOLIC PANEL (7) 2019-03-27 18:41:00 Lizette Grimes se [facility] CBC W/PLT COUNT & AUTO DIFFERENTIAL 2019-03-27 17:58:00 Ramon Grimes Shelbi [facility] CT ABDOMEN/PELVIS WITHOUT IV CONTRAST 2019-03-27 17:10:00 Roque Mccall [facility] SCREEN, URINE 2019-03-27 16:09:00 Lizette Grimes [facility] URINALYSIS W/ REFLEX URINE CULTURE 2019-03-27 16:09:00 Ana Grimes Shelbi [facility] REPORT OF PROCEDURE - ENDOSCOPY SCAN 2019-03-24 12:22:36 Pro vider, Default Scanning [facility] BASIC METABOLIC PANEL (7) 2019-03-19 09:29:00 Zoie Cook [facility] HEPATIC FUNCTION PANEL 2019-03-19 09:29:00 Zoie Cook [facility] AMYLASE 2019-03-19 09:29:00 Zoie Cook [facility] LIPASE 2019-03-19 09:29:00 Zoie Cook [facility] URINALYSIS W/ MICROSCOPIC 2019-03-19 08:57:00 Zoie Cook [facility] CBC W/PLT COUNT & AUTO DIFFERENTIAL 2019-03-19 08:22:00 Nathan Cook [facility] ECG 12-LEAD 2019-03-19 08:14:39 Unknown, Hl7 Doctor [facility] CT ABDOMEN/PELVIS WITH IV CONTRAST 2019-02-18 06:15:00 Da Sheffield [facility] COMPREHENSIVE METABOLIC PANEL 2019-02-18 03:45:00 Mani Sheffield [facility] MAGNESIUM 2019-02-18 03:45:00 Da Sheffield [facility] CBC W/PLT COUNT & AUTO DIFFERENTIAL 2019-02-18 03:45:00 Da Sheffield [facility] SCREEN, URINE 2019-02-18 00:36:00 Da Sheffield [facility] URINALYSIS W/ REFLEX URINE CULTURE 2019-02-18 00:36:00 Da Sheffield [facility] XR ABDOMEN 1 VW 2019-02-17 21:27:16 Nguyễn Cox HC COMPLETE BLD COUNT W/AUTO DIFF 2019-02-17 19:45:00 David Brown COMPREHENSIVE METABOLIC PANEL 2019-02-17 19:45:00 Morena Brown LIPASE LEVEL 2019-02-17 19:45:00 Morena Brown LACTIC ACID LEVEL, SEPSIS - NOW AND REPEAT 2X EVERY 3 HOURS 2019-02-17 19:45:00 Morena Brown HCG QUALITATIVE, SERUM SCREEN 2019-02-17 19:45:00 Morena Brown ESTIMATED GFR 2019-02-17 19:45:00 Morena Brown [place] [facility] TRANSPORT NURSE IN OR 30 MINUTE INCREMENTS 2019-02-06 13:13:00 Jorge Arango [facility] FLAP,ROTATIONAL-HAND 2019-02-06 10:58:00 Jorge White [facility] REMOVAL,INTERNAL HARDWARE-UPPER 2019-02-06 10:58:00 Silas White [facility] PROCEDURE W/MINI C-ARM 2019-02-06 10:58:00 Jorge White [facility] I [facility] ECG 12-LEAD 2019-01-31 12:51:09 Unknown, Hl7 Doctor [facility] ELECTROLYTE PANEL 2019-01-31 11:33:00 Jorge White [facility] BUN AND CREATININE W/RATIO 2019-01-31 11:33:00 Miguel López on [facility] CBC W/PLT COUNT & AUTO DIFFERENTIAL 2019-01-31 11:33:00 Jorge White [facility] Plan of Care Planned Activity Planned Date Details Comments Source Future Scheduled Test 2019-10-31 00:00:00 INFLUENZA VACCINE (#1) [code = INFLUENZA VACCINE (#1)] [facility] Future [facility]uled Test 2019-09-30 00:00:00 INFLUENZA VACCINE [code = INFLUENZA VACCINE] [facility] Future Scheduled Test 2009 00:00:00 Screening for félix gnant neoplasm of cervix (procedure) [code = 466445381] Holden Kelbyis t Future Scheduled Test 2009 00:00:00 Screening for félix gnant neoplasm of cervix (procedure) [code = 714055908] [facility] Future Scheduled Test 2008 00:00:00 Lipid panel (proce dure) [code = 29227126] [facility] Instructions Sprains [facility] Instructions Seizures [facility] Instructions Abdominal Pain - Adult [facility] Instructions Endometriosis [facility] Instructions Vomiting - Adult [facility] Encounters Start Date/Time End Date/Time Encounter Type Admission Type Attendi [facility] Care Department Encounter ID Source 2019-05-01 13:35:00 Inpatient [facility] [id number] [facility] 2020-01-08 00:00:00 2020-01-12 00:00:00 [place] [facility] [id number] [facility] 2019-12-26 00:00:00 2019-12-27 00:00:00 Emergency BOYAREDDIG COLIN, KRIS [id number] [facility] [facility] [place] 2019-11-26 00:00:00 2019-11-26 00:00:00 Emergency TU, [facility] [id number] [facility] 2019-10-22 00:00:00 2019-10-22 00:00:00 Emergency BOYAREDDIG COLIN, KRIS [facility] 064 [id number] [facility] 2019-10-10 11:22:00 2019-10-10 11:22:00 Emergency E [facility] [address] [facility] 2019-10-01 00:00:00 2019-10-03 00:00:00 Outpatient JUAN PABLO [facility] 064 [id number] [facility] 2019-09-28 13:34:00 2019-09-28 13:34:00 Emergency E [facility] [address] [facility] 2019-09-24 03:52:00 2019-09-24 03:52:00 Emergency E MHSE [facility]SE 7[address] [facility] 2019-09-23 17:06:00 2019-09-23 19:30:00 Departed Emergency Room 1 LENNY RAMACHANDRAN [facility] [id number] [facility] 2019-08-30 04:56:09 2019-08-30 07:31:00 Emergency Chaloelbert wojciech Rg [facility] ([facility]) [id number] 2019-08-29 19:53:00 2019-08-30 00:37:00 Departed Emergency Room 1 SHAHID VERA [facility] [id number] [facility] 2019-08-27 06:23:00 2019-08-27 06:23:00 Emergency E MHSE MHSE 7[address] [facility] 2019-08-16 08:03:00 2019-08-16 08:03:00 Emergency E MHBL MHBL 7596 [facility] 2019-08-03 21:58:00 2019-08-03 21:58:00 Emergency E MHSE MHSE 7595 [facility] 2019-08-01 05:54:00 2019-08-01 05:54:00 Emergency E MHSE MHSE 7[address] [facility] 2019-07-29 10:32:00 2019-07-29 10:32:00 Emergency E MHSE MHSE 7[address] [facility] 2019-07-17 13:51:00 2019-07-17 13:51:00 Emergency E MHSE MHSE 7[address] [facility] 2019-06-21 00:00:00 2019-06-21 00:00:00 Emergency BANGURA [facility] 064 [id number] Kody Lamaist 2019-06-20 18:12:00 2019-06-20 18:12:00 Emergency E MHSE MHSE 7590 [facility] 2019-05-10 16:41:00 2019-05-10 20:40:00 Departed Emergency Room [facility] [id number] [facility] 2019-05-10 16:41:00 2019-05-10 20:40:[address] [facility] [id number] [facility] 2019-05-06 06:49:42 2019-05-06 13:25:00 Emergency B Kathya shearer, Burton [facility] ([facility]) [id number] 2019-05-01 05:55:00 2019-05-01 05:55:00 Emergency E [facility] 75[address] [facility] 2019-04-29 06:48:00 2019-04-29 06:48:00 [facility] 2019-04-04 20:53:00 2019-04-04 20:53:00 Emergency E [facility] 7585 [facility] 2019-04-02 07:50:30 2019-04-03 12:00:00 Emergency Carolin Ervin Parul Armstrong, Robin [facility] ([facility]) [id number] 2019-04-01 19:01:52 2019-04-01 21:54:00 Emergency Helen Gonzales [facility] ([facility]) [id number] 2019-03-31 00:00:00 2019-03-31 00:00:00 Emergency VANDER Giovanny TEJAL RANJIT [facility] [id number] Kody Gilman 2019-03-24 08:33:49 2019-03-25 14:10:00 Emergency Jacobo Lombardo Candice Marie [facility] ([facility]) [id number] 2019-03-03 06:49:00 2019-03-03 06:49:00 Emergency E MHSE MHSE 7584 [facility] 2019-02-17 12:51:00 2019-02-17 15:42:00 Departed Emergency Room [facility] [id number] [facility] 2019-02-17 00:00:00 2019-02-17 00:00:00 Emergency MORENA BROWN 064 [id number] [facility] 2019-02-12 07:08:00 2019-02-12 07:08:00 Emergency E MHSE MHSE 7583 [facility] 2019-01-05 09:42:00 2019-01-06 12:09:00 Discharged Inpatient (obs) 1 ADRIANA BRIGHT [facility] [id number] I [facility] 2018-12-26 06:47:00 2018-12-26 06:47:00 Emergency E MHSE MHSE 7582 [facility] 2018-12-25 06:58:00 2018-12-25 06:58:00 Emergency E MHSE MHSE 7581 [facility] 2018-12-20 12:00:00 2018-12-20 12:00:00 Emergency E MHSE MHSE 7580 [facility] 2018-12-02 10:21:00 2018-12-02 10:21:00 Emergency E MHSE MHSE 7578 [facility] 2018-11-20 09:46:00 2018-11-20 09:46:00 Emergency [facility] 2018-11-14 05:03:00 2018-11-14 05:03:00 Emergency E MHSE MHSE 7576 [facility] 2018-10-29 05:08:00 2018-10-29 05:08:00 Emergency E MHSE MHSE 7575 [facility] 2018-10-28 17:41:00 2018-10-28 17:41:00 Emergency E MHSE MHSE 7574 [facility] 2018-10-20 12:39:00 2018-10-20 12:39:00 Emergency E MHSE MHSE 7573 [facility] 2018-10-11 06:54:00 2018-10-11 06:54:00 Emergency E MHBL MHBL [id number] [facility] 2018-09-30 08:26:00 2018-09-30 08:26:00 Emergency E MHSE MHSE 7[address] [facility] 2018-09-28 09:44:00 2018-09-28 09:44:00 Emergency E MHSE MHSE 7570 [facility] 2018-09-13 04:38:00 2018-09-13 06:34:00 Departed Emergency Room 1 RANJIT HINOJOSA [facility] [id number] [facility] 2018-08-31 06:12:00 2018-08-31 06:12:00 Outpatient E MHSE MED 7569 [facility] 2018-08-19 08:03:00 2018-08-19 08:03:00 Emergency E MHSE MHSE 7568 [facility] 2018-08-10 09:05:00 2018-08-10 09:05:00 Emergency E MHSE MHSE 7567 [facility] 2018-07-31 07:00:00 2018-07-31 07:00:00 Emergency E MHSE MHSE 7566 [facility] 2018-06-29 08:49:00 2018-06-29 08:49:00 Emergency E MHSE MHSE 7565 [facility] 2018-06-16 09:01:00 2018-06-16 09:01:00 Emergency E MHSE MHSE 7564 [facility] 2018-06-11 06:28:00 2018-06-11 06:28:00 Emergency E MHSE MHSE 7563 [facility] 2018-06-06 11:08:00 2018-06-06 11:08:00 Emergency E MHSE MHSE 7562 [facility] 2017-06-09 15:16:00 2017-06-09 18:10:00 Departed Emergency Room ER RG KWOK [facility] [id number] [facility] 2017-05-31 08:07:00 2017-05-31 12:44:00 Departed Emergency Room ER RG KWOK [facility] [id number] [facility] 2016-10-01 01:39:00 2016-10-01 04:27:00 Departed Emergency Room [facility] [id number] [facility] Results Test Description Test Time Test Comments Results Result Comments Source CBC with platelet and differential 2020-01-12 08:05:54 Test Item WBC (test code = 73967-0) 8.63 4.50- 11.00 k/uL RBC (test code = 70026-9) 3.73 m/uL 4.2-5.5 L HGB (test code = 718-7) 9.2 g/dL 12-16 L HCT (test code = 4544-3) 30.1 % 37-47 L MCV (test code = 787-2) 80.7 fL 82-100 L MCH (test code = 785-6) 24.7 pg 27-34 L MCHC (test code = 786-4) 30.6 g/dL 31-37 L RDW - SD (test code = 26843-5) 61.1 fL 37-55 H MPV (test code = 44216-2) 10.4 fL 8.8-13.2 Platelet count (test code = 98430-7) 273 150- 400 k/uL Nucleated RBC (test code = 16779-4) 0.00 /100 WBC Neutrophils (test code = 29977-9) 64.9 % 39-69 Lymphocytes (test code = 26124-9) 24.6 % 25-45 L Monocytes (test code = 26661-9) 8.0 % 0-10 Eosinophils (test code = 08016-0) 2.0 % 0-5 Basophils (test code = 20013-0) 0.2 % 0-1 Immature granulocytes (test code = 14023-0) 0.3 % 0-1 "Immature granulocytes" (promyelocytes, myelocytes, metamyelocytes) Lab Interpretation (test code = 08339-0) Abnormal [facility]Com[facility] metabolic adnfa4706-66-72 07:21:00* Test Item Value Reference Range Interpretation Comments Sodium (test code = 2951-2) 140 135- 148 mEq/L Potassium (test code = 2823-3) 3.1 3.5- 5.0 mEq/L L Chloride (test code = 2074-0) 102 98- 112 mEq/L CO2 (test code = 2027-) 27 24- 31 mEq/L Anion gap (test code = 73576-2) 11@ANIO 7- 15 mEq/L BUN (test code = 3094-0) 4 mg/dL 6-20 L Creatinine (test code = 2160-0) 0.80 mg/dL 0.5-0.9 Glucose (test code = 2345-7) 94 mg/dL 65-99 Calcium (test code = 98266-6) 8.9 mg/dL 8.3-10.2 Protein (test code = 2885-2) 6.9 g/dL 6.3-8.3 - 4.6- 7.0 g/dL1 week 4.4-7.6 g/dL7 months-1year 5.1-7.3 g/dL1-2 years 5.6-7.5 g/dL>3 years 6.0-8.0 g/bZ73-278 6.3-8.3 g/dL Albumin (test code = 1751-7) 3.5 g/dL 3.5-5 A/G ratio (test code = 1759-0) 1.0 0.7-3.8 Alkaline phosphatase (test code = 6768-6) 83 U/L 35-104 AST (test code = 1920-8) 21 U/L 10-35 ALT (test code = 1742-6) 32 U/L 5-50 Total bilirubin (test code = 1974-) 0.4 mg/dL 0-1.2 Lab Interpretation (test code = 20971-5) Abnormal [facility] MethodistEstimated [id number] 07:20:58* Test Item Value Reference Range Interpretation Comments Estimated GFR (test code = 5488) >=90 mL/min/1.73 m2 Catergory Units InterpretationG1 >=90 Normal or highG2 60-89 Mildly catzipwmjF9c 45-59 Mildly to moderately bybgnaaakE8p 30-44 Moderately to severely decreasedG4 15-29 Severely decreasedG5 <15 Kidney failureThe eGFR was calculated using the Chronic Kidney Disease Epidemiology Collaboration (CKD-EPI) equation. Interpretation is based on recommendations of the National Kidney Foundation-Kidney Disease Outcomes Quality Initiative (NKF-KDOQI) published in 2014. Kody GilmanTgdvejnmhOranftvixabqs6507-22-22 18:57:12* Test Item Value Reference Range Interpretation Comments Procalcitonin (test code = 61878-2) 0.06 ng/mL 0-0.08 PCT: 0.00-0.10 ng/mL: Significant bacterial infection UNLIKELY. -PCT: 0.11-0.50 ng/mL: Significant bacterial infection POSSIBLE; retest 12- 24hrs; consider clinical picture, other diagnostic studies. PCT: 0.51-2.00 ng/mL: Significant bacterial infection LIKELY; consider clinical picture and other diagnostic studies. PCT: >2.00 ng/mL: Suggestive of presence of bacterial infection. For guidance on antibiotic de-escalation or discontinuation, consult the antimicrobial stewardship team.The PCT algorithm for antibiotic therapy stewardship in patients with suspected or confirmed lower respiratory tract infections can be found at: http://www/dept/antimicrobial/home.htm. Kody LamaistC-reactive orrzkbz7914-16-95 18:04:50* Test Item Value Reference Range Interpretation Comments CRP (test code = 1988-5) 0.88 mg/dL 0-0.5 H Lab Interpretation (test code = 04511-2) Abnormal Holden KelbyistLamotrigine qilsu7785-45-91 07:14:07* Test Item Value Reference Range Interpretation Comments Lamotrigine (test code = 6948-4) <0.9 2.5-15 L INTERPRETIVE INFORMATION: LamotrigineTherapeutic Range: 2.5-15.0 ug/mL Toxic: Not well establishedPharmacokinetics varies widely, particularly with co-medications and/or compromised renal function. Adverse effects may include dizziness, somnolence, nausea and vomiting.Performed By: [facility] [place] [address] [id number] Director: Isabella Hess MD Lab Interpretation (test code = 35576-0) Abnormal Holden KelbyistMagnesium ojvie5400-46-96 01:06:51* Test Item Value Reference Range Interpretation Comments Magnesium (test code = 47531-2) 1.8 mg/dL 1.6-2.6 Holden KelbyistPhosphorus wulpw4319-25-49 01:06:47* Test Item Value Reference Range Interpretation Comments Phosphorus (test code = 2777-1) 2.3 mg/dL 2.4-4.5 L Lab Interpretation (test code = 28806-1) Abnormal Holden KelbyistMRI Pelvis W Wo Kdjvhesd4546-89-83 13:31:04Hm Interface, Radiology Results - 01/09/2020 1:34 PM CSTEXAMINATION: MRI PELVIS W WO CONTRASTCLINICAL HISTORY: Endometriosis, To evaluate possible rectovaginal endometriosisCOMPARISON: CT 01/08/2020TECHNIQUE: MR of the pelvis with and without intravenous gadolinium.FINDINGS:Status post hysterectomy. Ovaries are not seen.There is no adnexal or other pelvic mass or cyst. No suspicious pe ritoneal or bowel serosal thickening. Rectovaginal septum is clear.No lymphadeno jigar.No free fluid.Grossly normal bladder.No focal osseous lesion.IMPRESSION:Ne gative exam. No MR evidence of pelvic endometriosis.[id number] Hemoglobin A0d7090-15-04 10:46:55* Test Item Value Reference Range Interpretation Comments Hemoglobin A1C (test code = 94197-4) 5.3 % 4-5.6 HbA1c cutoffs for diagnosing diabetes:4.0% - 5.6% = normal5.7% - 6.4% = increased risk for diabetes (prediabetes)9>=6.5% = jijrlajn9Eiehr for glycemic control (ADA 2016)< 7.0% Target for non adults with diabetes. More or less stringent targets may be appropriate for individual patients. <7.5% Target for Children and adolescents with type 1 diabetes. Kody GilmanXR Chest 2 [id number] 09:36:05Hm Interface, Radiology Results - 01/09/2020 9:39 AM CSTEXAMINATION: XR CHEST 2 VWCLINICAL HISTORY: 29 years Female Fatigue and malaiseCOMPARISON: 01/08/2020IMPRESSION:1.Left- sided PICC line extends into the right atrium.2.The cardiomediastinal silhouette is normal.3.There is no evidence of pulmonary edema. There are no focal consolidations or effusions.4.Regional skeletal structures are slightly osteopenic.5.Status post cholecystectomy.[id number] HinduismVitamin B12 dpmjw3735-76-60 02:59:14* Test Item Value Reference Range Interpretation Comments Vitamin B12 (test code = 2132-9) 376 pg/mL 211-946 Significant overlap exists between normal and deficiency states.However, most patients with deficiencies will have Serum B12 <200 pg/mL. Kody GilmanPOC fuooryn9768-07-05 23:26:41* Test Item Value Reference Range Interpretation Comments POC glucose (test code = 90198-3) 89 mg/dL 65-99 [employer] Name: Beth Parisi ID: [id number]: [facility] Notified RN Kody GilmanFerritin gircc0839-81-40 22:58:25* Test Item Value Reference Range Interpretation Comments Ferritin level (test code = 2276-4) <13 13-150 A Lab Interpretation (test code = 86743-5) Abnormal Kody GilmanTotal iron binding dzhmglqy9507-51-91 22:54:21* Test Item Value Reference Range Interpretation Comments Iron level (test code = 2498-4) 39 ug/dL 37-145 Iron binding capacity (test code = 2500-7) 395 ug/dL 200-400 % Saturation (test code = 2502-3) 9.9 % 15-38 L Lab Interpretation (test code = 84973-1) Abnormal Holden MethodistLactic acid level, SEPSIS - Now and repeat 2x every 3 hours 2020-01-08 22:46:00* Test Item Value Reference Range Interpretation Comments Lactic acid (test code = 39011-4) 0.8 mmol/L 0.5-2.2 Holden MethodistCOVID-19 qualitative [id number] 21:18:23* Test Item Value Reference Range Interpretation Comments Interpretation (test code = 1777592) Negative results do not preclude 2019-nCoV infection and should not be used as the sole basis for treatment or other patient management decisions. Negative results must be combined with clinical observations, patient history, and epidemiological information. COVID-19 qualitative PCR result (test code = 86377-8) Not-Detect ed Not-Detected COVID-19 qualitative PCR (test code = 7070) See link below for P DF Lab Report Holden MethodistXR Picc Chest Yfajhlpa2902-43-90 19:06:04Hm Interface, Radiology Results - 01/08/2020 7:09 PM CSTEXAMINATION: XR PICC CHEST PORTABLECLINICAL HISTORY: R11.2 Nausea with vomiting unspecified, multiple iv medsCOMPARISON: 12/26/2019IMPRESSION: Left PICC with tip in the superior cavoatrial junction.No consolidation or pneumothorax. Possible trace left pleural effusion. Cardiomediastinal silhouette is at upper limits of normal si ze.[facility]-IY15IKRWPuuvqpe MethodistPICC zzbaoagso7280-50-35 18:44:05Henrique Andrade RN 01/08/2020 6:47 PMPICC insertion Date/Time: 01/08/2020 6:44 PMPerformed by: Jaret Woo, RNAuthorized by: Selwyn Bell MD Consent: Consent obtained: Written Consent given by: Patient Risks discussed: Arterial puncture, incorrect placement, nerve damage, bleeding, infection, superficial thrombus and deep vein thrombus Alternatives discussed: Delayed treatmentUniversal protocol: Procedure explained and questions answered to patient or proxy's s atisfaction: yes Relevant documents present and verified: yes Test results available and properly labeled: yes Imaging studies available: yes Requir ed blood products, implants, devices, and special equipment available: yes Si te/side marked: yes Immediately prior to procedure, a time out was called: vince lockett Patient identity confirmed: Verbally with patient, arm band, provided demo graphic data and hospital-assigned identification numberPre-procedure details: Hand hygiene: Hand hygiene performed prior to insertion Sterile barrier tech nique: All elements of maximal sterile technique followed Skin preparation: ChloraPrep Skin preparation agent: Completely dried prior to procedure Anesthe gabino (see MAR for exact dosages): Anesthesia method: Local infiltration Local anesthetic: Lidocaine 1% w/o epi Route administered: SubcutaneousPICC Line P lacement Details: Patient position: HOB elev 30 deg. Vessel Size (mm): 5.6. Indication: Known skilled nursing IV therapy Location: Left brachial Site selectio n rationale: Wound on RFA with dressing in place Device Type: Non-valved Cat heter Lumens: Double lumen Catheter size: 4 Fr Catheter to vein ratio: 26%P ICC Characteristics: Catheter Brand: AxisMobilea External Catheter Length ( cm): 0 Internal Catheter Length (cm): 42 Total Catheter Length (cm): 42 Ca [employer]ter Lot Number: [id number] Catheter Expiration Date: 1Procedure deta ils: Landmarks identified: yes Ultrasound guidance: yes Sterile ultrasou nd techniques: Sterile gel and sterile probe covers were used Number of attem pts: 1 Number of PICC kits used during procedure: 1 Extra guide wire require d?: No Purpose of procedure: PICC Placement Successful PICC Placement: yes Patency/Placement: Flushes without difficulty, flushed with 10 mL normal britney ine, positive blood return and ultrasound placement verified Dressing/Securemen t: Catheter securement device and antimicrobial dressing applied (CHG Tegaderm) Blood Loss Amount: Less than 20 mLPost-procedure details: Post-procedure: Dressing applied Tip placement confirmed by: X-Ray Patient tolerance of proc edure: Tolerated well, no immediate complicationsHolden MethodistLactic acid dlici4541-05-26 15:26:42* Test Item Value Reference Range Interpretation Comments Lactic acid (test code = 80536-3) 1.8 mmol/L 0.5-2.2 [facility] MethodistCT Abdomen Pelvis W Gpxpeioh6646-42-84 11:25:53 Interface, Radiology Results - 01/08/2020 11:29 AM CSTEXAMINATION: CT ABDOMEN PELVIS W CONTRASTCLINICAL HISTORY: endometriosis and colonic fistula TECHNIQUE: Multiple axial images of the abdomen and pelvis were obtained following intravenous administration of iodinated contrast. Sagittal and coronal compu terized reformatted images were also obtained.. All CT images were acquired usi ng radiation dose lowering technique with automated exposure control and / or it erative reconstruction.COMPARISON: CT abdomen and pelvis 11/26/2019IMPRESSION:AB DOMEN:1. Lung bases are clear.2.Scattered colonic diverticula. The distal esopha aracelis is distended with fluid, which may indicate dysmotility and or gastroesophag eal reflux. No hiatal hernia identified however.3.The stomach is moderately dist ended with fluid likely accounting for the findings of the esophagus. Bowel loop show no evidence of obstruction or acute inflammation.4.No colonic fistula is i dentified. Evaluation limited by collapsed and unopacified state. Otherwise alin sly unremarkable.5.Cholecystectomy. Focal fatty infiltration in hepatic segment 4. Liver otherwise unremarkable.6.Bile ducts, pancreas, spleen, adrenals, abdomi nal aorta demonstrate nothing unusual.7.Heterogeneous enhancement in the kidneys bilaterally, with trace left perinephric fluid and mild stranding, indicative of bilateral pyelonephritis, worse on the left. Follow-up to ensure resolution re commended.8.Subcentimeter hypodensities are likely cysts. No hydronephrosis on e ither side.PELVIS:1. No free fluid or lymphadenopathy identified within the abdo men or pelvis.2.Hysterectomy.3.Urinary bladder is distended arising out of the p elvic inlet. Patient may benefit from Jimenez catheter decompression if unable to void spontaneously.4.Posttraumatic or postsurgical deformity in the left anterio r superior iliac spine stable. Visualized bones show no suspicious lesion.SUMMAR Y:No colonic fistula is identified.Bilateral pyelonephritis slightly worse on th e left. Follow-up to ensure resolution recommended.Gastric and distal esophageal distention likely gastroesophageal reflux, which may indicate gastritis with a mild ileus. 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 Grayscale and color Doppler imaging obtained.IMPRESSION:Sensitivity of examination decreased without s upplemental transvaginal imaging.Hysterectomy. Neither ovary visualized, reporte dly removed bilaterally.The urinary bladder is distended otherwise unremarkable. No free fluid or fluid collection identified. SUMMARY:1.Hysterectomy and bilater al oophorectomy. No abnormality detectedHILL CREST BEHAVIORAL HEALTH SERVICESXH97BZKBYrqrzan MethodistLipase mzkjq2641-05-81 10:10:40* Test Item Value Reference Range Interpretation Comments Lipase (test code = 3040-3) 11 U/L 13-60 L Lab Interpretation (test code = 02226-1) Abnormal [facility] MethodistUrine mtjzhai4869-73-88 09:56:14* Test Item Value Reference Range Interpretation Comments Urine culture (test code = 0739850) SEE COMMENT Bacteriuria screen negative. Holden MethodistUrinalysis screen and microscopy, with reflex to culture 2020-01-08 09:56:13* Test Item Value Reference Range Interpretation Comments Specimen site (test code = 9908005) Clean catch Color, UA (test code = 5778-6) Straw Appearance, UA (test code = 5767-9) Hazy Specific gravity, UA (test code = 5811-5) 1.011 1.001-1.035 pH, UA (test code = 5803-2) 6.0 5.0-8.5 Protein, UA (test code = 20321-3) 2+ Negative A Glucose, UA (test code = 88502-5) 1+ Negative A Ketones, UA (test code = 2514-8) Negative Negative Bilirubin, UA (test code = 5770-3) Negative Negative Blood, UA (test code = 5794-3) Small Negative A Nitrite, UA (test code = 5802-4) Negative Negative Urobilinogen, UA (test code = 25396-0) <2.0 <2.0 Leukocyte esterase, UA (test code = 5799-2) Negative Negative Epithelial cells, UA (test code = 5787-7) 4 /HPF WBC, UA (test code = 5821-4) 1 0- 4 /HPF RBC, UA (test code = 63162-0) 7 0- 5 /HPF H Bacteria, UA (test code = 12649-1) Few None seen Yeast, UA (test code = 56676-7) None seen Yeast with pseudohyphae, UA (test code = 23032-7) None seen Lab Interpretation (test code = 46016-1) Abnormal [facility] SMDB1993-93-54 08:49:39Dung Zapata DO 01/08/2020 9:23 PMCritical CarePerformed by: Dung Zapata DOAuthorized by: Dung Zapata DO Critical care provider statement: Critical care time (minutes): 35 Critical care time was exclusive of: Teaching time Critical care was necessary to treat or prevent imminent or life-threatening deterioration of the following conditions: Sepsis Critical care was time spent personally by me on the following activities: Development of treatment plan with patient or surrogate, discussions with consultants, examination of patient, evaluation of patient's response to treatment, interpretation of cardiac output measurements, obtaining history from patient or surrogate, ordering and review of radiographic studies, ordering and review of laboratory studies, ordering and performing treatments and interventions, pulse oximetry, re-evaluation of patient's condition and review of old charts Kye 'yes' if you are taking over critical care for this patient from another provider.: no [facility] BASIC METABOLIC [id number] 16:53:00* Test Item Value Reference Range Interpretation Comments SODIUM (test code = NA) 139 mmol/L 136-145 N POTASSIUM (test code = K) 3.2 mmol/L 3.5-5.1 L CHLORIDE (test code = CL) 101 mmol/L 101-109 N CARBON DIOXIDE (test code = CO2) 14.2 mmol/L 21-32 L ANION GAP (test code = GAP) 27 mmol/L 10-20 H GLUCOSE (test code = GLU) 161 mg/dL 74-106 H BLOOD UREA NITROGEN (test code = BUN) 9 mg/dL 3-21 N GLOMERULAR FILTRATION RATE (test code = GFR) > 60 mL/min >=60 Estimated GFR by using Modified MDRD formula.Chronic kidney disease is defined as either kidney damageor GFR <60 mL/min/1.73 m2 for >3 months. CREATININE (test code = CREAT) 0.75 mg/dL 0.55-1.3 N BUN/CREATININE RATIO (test code = BUN/CREA) 12.0 10-20 N CALCIUM (test code = CA) 9.9 mg/dL 8.4-10.2 N HEPATIC FUNCTION [id number] 16:53:00* Test Item Value Reference Range Interpretation Comments TOTAL PROTEIN (test code = PROT) 9.0 g/dL 6.5-8.4 H ALBUMIN (test code = ALB) 4.3 g/dL 3.4-4.8 N GLOBULIN (test code = GLOB) 4.7 G/DL 1-10 N ALBUMIN/GLOBULIN RATIO (test code = A/G) 0.91 RATIO 0.75-1.50 N BILIRUBIN TOTAL (test code = BILT) 0.30 mg/dL 0.0-1.0 N BILIRUBIN DIRECT (test code = BILD) 0.10 mg/dL 0.0-0.30 N SGOT/AST (test code = AST) 24 U/L 6-32 N SGPT/ALT (test code = ALT) 62 U/L 12-78 N N ote: Change in REFERENCE RANGE due to new reagent method. ALKALINE PHOSPHATASE TOTAL (test code = ALKP) 137 U/L 38-126 H [id number] 16:53:00* Test Item Value Reference Range Interpretation Comments LIPASE (test code = LIP) 84 U/L 128-270 L URINALYSIS [id number] 16:39:00* Test Item Value Reference Range Interpretation Comments UA COLOR (test code = COLU) YELLOW YELLOW UA APPEARANCE (test code = APPU) CLEAR CLEAR UA GLUCOSE DIPSTICK (test code = DGLUU) norm mg/dL NEGATIVE UA BILIRUBIN DIPSTICK (test code = BILU) NEGATIVE mg/dL NEGATIVE UA KETONE DIPSTICK (test code = KETU) 15 (1+) mg/dL NEGATIVE A UA SPECIFIC GRAVITY (test code = SGU) 1.020 1.001-1.035 UA BLOOD DIPSTICK (test code = ZABRINA) 25 (1+) Asael/uL NEGATIVE A UA PH DIPSTICK (test code = ROC) 5.0 5.0-8.0 UA PROTEIN DIPSTICK (test code = PROU) 30 (1+) mg/dL Neg-15 A UA UROBILINIOGEN DIPSTICK (test code = URO) norm mg/dL 0.0-0.2 UA NITRITE DIPSTICK (test code = NURA) NEGATIVE NEGATIVE UA LEUKOCYTE ESTERASE DIPSTICK (test code = LEUU) neg uL NEGA TIVE UA WBC (test code = WBCU) NONE SEEN per HPF 0-5 UA RBC (test code = RBCU) 1-2 per HPF 0-5 UA EPITHELIAL CELLS (test code = EPIU) Few (2-5/hpf) per HPF Few UA BACTERIA (test code = BACU) FEW per HPF NONE Urine Source? Clean CatchHCG SERUM [id number] 16:38:00* Test Item Value Reference Range Interpretation Comments HCG SERUM QUAL (test code = HCGQL) NEGATIVE NEGATIVE This HCGQL test is NOT applicable for MALE patients.Check with nurse about probable order error.If Tumor Marker Test needed, nurse should order test "HCGTU"(Test #550.26969) CBC W/O [id number] 16:32:00* Test Item Value Reference Range Interpretation Comments WHITE BLOOD CELL (test code = WBC) 9.5 K/mm3 4.5-12.5 N RED BLOOD CELL (test code = RBC) 4.52 mill/mm3 3.7-5.2 N HEMOGLOBIN (test code = HGB) 11.3 gram/dL 11.5-15.5 L HEMATOCRIT (test code = HCT) 37.1 % 36.0-46.0 N MEAN CELL VOLUME (test code = MCV) 82.1 fL 80-98 N MEAN CELL HGB (test code = MCH) 25.0 picogram 27.0-33.0 L MEAN CELL HGB CONCETRATION (test code = MCHC) 30.5 gram/dL 33.0-36. 0 L RED CELL DISTRIBUTION WIDTH (test code = RDW) 21.2 % 11.6-16. 2 H RED CELL DISTRIBUTION WIDTH SD (test code = RDW-SD) 62.6 fL 37 .0-51.0 H PLATELET COUNT (test code = PLT) 451 K/mm3 150-450 H MEAN PLATELET VOLUME (test code = MPV) 10.8 fL 6.7-11.0 N - CT ABD PELVIS [id number] 13:32:00 [facility]Name: HOLLEY HODGES : 1990 Se x: F Name: Helen HODGES [facility] : 1990 Age /S: 29 / F [address] [facility] Unit #: [id number] Loc: [place] [address] Phys: Toby Moreno MD Acct: [id number] Dis Date: Status: REG ER PHONE #: [phone] Exam Date: 01/02/2020 1327 FAX #: [phone] Reason: ap rlq EXAMS: CPT CODE: [id number] CT ABD PELVIS W/CONT 61943 HISTORY: Right lower quadrant pain. COMPARISON: CT scan from November 22, 2018. Location: [facility]. CT abdomen and pelvis with IV contrast: 100 mL of Isovue-370. Automated exposure control CT of abdomen: The lung bases are clear. Dependent changes. The hepatic parenchyma is enhancing homogeneously without mass. Patient is post cholecystectomy. Por rocio vein and hepatic artery are patent. Liver measured 18 cm in length. The spleen is not enlarged. Homogeneous enhancement. Stomach distend ed incompletely and is limited in evaluation. Pancreas is en hancing homogeneously. Unremarkable adrenals. Kidneys are free fro m hydroureteronephrosis. Homogeneous enhancement. Bilateral excretion. Sub centimeter low-attenuation lesion in the left lower pole is too small to c haracterize. No pathologic adenopathy. Well-opacified abdominal an d pelvic vasculature. No bowel obstruction or colitis or div erticulitis or enteritis. Diverticulosis. CT PELVIS: Patient appears a post appendectomy. Correlate with surgical history. Bowel loops are unobstructed. Unremarkable urinary bladder. No pelvic pathologic adenopathy. No free fluid or free air or abscess. Patien t is post hysterectomy. Subcutaneous tissues and the musculature a re normal in appearance. No lytic or blastic lesions are noted wit hin the bony skeleton. IMPRESSION: PAGE 1 Signed Report (CONTINUED) Name: HOLLEY HODGES [facility] : 1990 Age/S: 29 / F [address] [facility] Unit #: [id number] Loc: [place] [address] Phys: Toby Moreno MD Acct: [id number] Dis Date: Status: REG ER PHONE #: [phone] Exam Date: 04/2019 1327 FAX #: [phone] Reason: ap rlq EXAMS: CPT CODE: [id number] CT ABD PELVIS W/CONT 12823 <Continued> Patient is post appendectomy. No bowel obstruction or colitis or diverticulitis or enteritis or free fluid or free air or abscess. No hydroureteronephrosis with unremarkable urinary bladder. at 1332 Reported and signed by: Tho Rangel M.D. CC: Yoni Higgins DO; Toby Moreno MD Technologist:PASCUAL CHING, RT(R),CT CTDI: DLP: Trnscb Date/Time: 01/02/2020 (6982) [email or web address] Orig Print D/T: S: 01/02/2020 (3478) PAGE 2 Signed Report - XR CHEST 1 [id number] 13:25:00 [facility]Name: HOLLEY HODGES : 1990 Se x: F Name: Helen HODGES [facility] : 1990 Age /S:29 /F [address] [facility] Unit#:[id number] Loc: [place] [address] Phys: Toby Moreno MD Dis Date: PHONE #: [phone] Status: REG ER FAX #: [phone] Exam Date: 01/02/2020 Reason: CODE SEPSIS EXAMS: CPT CODE: [id number] XR CHEST 1 V 23768 REASON FOR EXAM: CODE SEPSIS Exam Order Date: 01/02/2020 10:33 AM Ordering M.D.: Toby Moreno MD PROCEDURE: - XR CHEST 1 V COMPARISON: Chest x- ray July 17, 2018 FINDINGS: The lungs are clear. There is no pleural effusion or pneumothorax. Pulmonary vascularity is within nor mal limits. Cardiomediastinal silhouette is normal in size for kassidy hnique. The mediastinal contours are within normal limits. M usculoskeletal structures are within normal limits. The visualized upper abdomen is within normal limits. IMPRESSION: No acute cardiopulmonary process. Location: [facility] at 1325 Reported and signed by: Kamron Ariza MD CC: Yoni Higgins DO; Toby Moreno MD Technologist: PASCUAL CHING, RT(R),CT Trnscrpt Data: 01/02/2020 (8958) [email or web address] Orig Print D/T: S: 01/02/2020 (8926) PAGE 1 Signed Report URINALYSIS [id number] 12:48:00* Test Item Value Reference Range Interpretation Comments UA COLOR (test code = COLU) YELLOW YELLOW UA APPEARANCE (test code = APPU) CLEAR CLEAR UA GLUCOSE DIPSTICK (test code = DGLUU) norm mg/dL NEGATIVE UA BILIRUBIN DIPSTICK (test code = BILU) NEGATIVE mg/dL NEGATIVE UA KETONE DIPSTICK (test code = KETU) neg mg/dL NEGATIVE UA SPECIFIC GRAVITY (test code = SGU) 1.010 1.001-1.035 UA BLOOD DIPSTICK (test code = ZABRINA) neg Asael/uL NEGATIVE UA PH DIPSTICK (test code = ROC) 6.0 5.0-8.0 UA PROTEIN DIPSTICK (test code = PROU) neg mg/dL Neg-15 UA UROBILINIOGEN DIPSTICK (test code = URO) norm mg/dL 0.0-0.2 UA NITRITE DIPSTICK (test code = NURA) NEGATIVE NEGATIVE UA LEUKOCYTE ESTERASE DIPSTICK (test code = LEUU) 25 Mihaela/uL (Tra ce) uL NEGATIVE A UA WBC (test code = WBCU) 0-5 per HPF 0-5 UA RBC (test code = RBCU) NONE SEEN per HPF 0-5 UA EPITHELIAL CELLS (test code = EPIU) Moderate (5-10/hpf) per HPF Few UA BACTERIA (test code = BACU) FEW per HPF NONE Urine Source? Clean CatchUR HCG [id number] 12:48:00* Test Item Value Reference Range Interpretation Comments UR HCG QUAL (test code = HCGQLU) NEGATIVE This HCGQL test is NOT applicable for MALE patients.Check with nurse about probable order error.If Tumor Marker Test needed, nurse should order test "HCGTU"(Test #550.86461) Urine Source? Clean CatchCOMPREHENSIVE METABOLIC [id number] 11:43:00* Test Item Value Reference Range Interpretation Comments SODIUM (test code = NA) 137 mmol/L 135-148 N POTASSIUM (test code = K) 4.9 mmol/L 3.5-5.1 N CHLORIDE (test code = CL) 103 mmol/L 101-109 N CARBON DIOXIDE (test code = CO2) 22.2 mmol/L 21-32 N ANION GAP (test code = GAP) 17 mmol/L 10-20 N GLUCOSE (test code = GLU) 104 mg/dL 74-106 N BLOOD UREA NITROGEN (test code = BUN) 10 mg/dL 3-21 N CREATININE (test code = CREAT) 0.55 mg/dL 0.55-1.3 N BUN/CREATININE RATIO (test code = BUN/CREA) 18.2 10-20 N TOTAL PROTEIN (test code = PROT) 7.9 g/dL 6.5-8.4 N ALBUMIN (test code = ALB) 3.8 g/dL 3.4-4.8 N GLOBULIN (test code = GLOB) 4.1 G/DL 1-10 N ALBUMIN/GLOBULIN RATIO (test code = A/G) 0.9 RATIO 0.75-1.50 N CALCIUM (test code = CA) 9.3 mg/dL 8.4-10.2 N BILIRUBIN TOTAL (test code = BILT) 0.40 mg/dL 0.0-1.0 N SGOT/AST (test code = AST) 29 U/L 6-32 N SGPT/ALT (test code = ALT) 100 U/L 12-78 H N ote: Change in REFERENCE RANGE due to new reagent method. ALKALINE PHOSPHATASE TOTAL (test code = ALKP) 122 U/L 38-126 N [id number] 11:43:00* Test Item Value Reference Range Interpretation Comments LIPASE (test code = LIP) 60 U/L 128-270 L [id number] 11:43:00* Test Item Value Reference Range Interpretation Comments TROPONIN-I (test code = TROPI) <0.015 ng/mL 0.00-0.056 N COMPREHENSIVE METABOLIC [id number] 11:35:00* Test Item Value Reference Range Interpretation Comments SODIUM (test code = NA) 137 mmol/L 135-148 N POTASSIUM (test code = K) 4.9 mmol/L 3.5-5.1 N CHLORIDE (test code = CL) 103 mmol/L 101-109 N CARBON DIOXIDE (test code = CO2) 22.2 mmol/L 21-32 N ANION GAP (test code = GAP) 17 mmol/L 10-20 N GLUCOSE (test code = GLU) 104 mg/dL 74-106 N BLOOD UREA NITROGEN (test code = BUN) 10 mg/dL 3-21 N CREATININE (test code = CREAT) 0.55 mg/dL 0.55-1.3 N BUN/CREATININE RATIO (test code = BUN/CREA) 18.2 10-20 N TOTAL PROTEIN (test code = PROT) gram/dL 6.4-8.2 ALBUMIN (test code = ALB) g/dL 3.4-5.0 GLOBULIN (test code = GLOB) g/dL 2.7-4.2 ALBUMIN/GLOBULIN RATIO (test code = A/G) 0.75-1.50 CALCIUM (test code = CA) 9.3 mg/dL 8.4-10.2 N BILIRUBIN TOTAL (test code = BILT) mg/dL 0.2-1.2 SGOT/AST (test code = AST) IUnit/L 15-37 SGPT/ALT (test code = ALT) U/L 10-69 ALKALINE PHOSPHATASE TOTAL (test code = ALKP) IUnit/L 45-117 [id number] 11:35:00* Test Item Value Reference Range Interpretation Comments LIPASE (test code = LIP) Unit/L 144-286 [id number] 11:35:00* Test Item Value Reference Range Interpretation Comments TROPONIN-I (test code = TROPI) ng/mL 0-0.045 LACTIC [id number] 11:35:00* Test Item Value Reference Range Interpretation Comments LACTIC ACID (test code = LACT) 0.9 MMOL/L 0.4-1.9 N CBC W/AUTO [id number] 11:08:00* Test Item Value Reference Range Interpretation Comments WHITE BLOOD CELL (test code = WBC) 10.9 K/mm3 4.5-12.5 N RED BLOOD CELL (test code = RBC) 4.46 mill/mm3 3.7-5.2 N HEMOGLOBIN (test code = HGB) 11.0 gram/dL 11.5-15.5 L HEMATOCRIT (test code = HCT) 36.2 % 36.0-46.0 N MEAN CELL VOLUME (test code = MCV) 81.2 fL 80-98 N MEAN CELL HGB (test code = MCH) 24.7 picogram 27.0-33.0 L MEAN CELL HGB CONCETRATION (test code = MCHC) 30.4 gram/dL 33.0-36. 0 L RED CELL DISTRIBUTION WIDTH (test code = RDW) 20.7 % 11.6-16. 2 H RED CELL DISTRIBUTION WIDTH SD (test code = RDW-SD) 60.9 fL 37 .0-51.0 H PLATELET COUNT (test code = PLT) 341 K/mm3 150-450 N MEAN PLATELET VOLUME (test code = MPV) 9.9 fL 6.7-11.0 N NEUTROPHIL % (test code = NT%) 72.4 % 39.0-69.0 H LYMPHOCYTE % (test code = LY%) 21.7 % 25.0-55.0 L MONOCYTE % (test code = MO%) 3.9 % 0.0-10.0 N EOSINOPHIL % (test code = EO%) 1.4 % 0.0-5.0 N BASOPHIL % (test code = BA%) 0.3 % 0.0-1.0 N NEUTROPHIL # (test code = NT#) 7.87 K/mm3 1.8-7.7 H LYMPHOCYTE # (test code = LY#) 2.35 K/mm3 1.0-5.0 N MONOCYTE # (test code = MO#) 0.42 K/mm3 0-0.8 N EOSINOPHIL # (test code = EO#) 0.15 K/mm3 0.0-0.5 N BASOPHIL # (test code = BA#) 0.03 K/mm3 0.0-0.2 N MANUAL DIFF REQUIRED (test code = MDIFF) NO XR Abdomen Acute Inc [id number] 23:31:29Hm Interface, Radiology Results 12/26/2019 11:34 PM CDTExamination: XR ABDOMEN ACUTE INC CHEST 1VClinical history: "Nausea vomiting" Comparison: IMPRESSION: The bowel gas pattern is nonspecifi c. There is minimal bilateral lower lung atelectasis. Heart size is within norm al limits. Right lateral iliac deformity is seen. Surgical clips are seen in the right upper quadrant. PRAVIN-Tejinder Gilman SARS-CoV2/RT-PCR (Asymptomatic ONLY)2019-11-29 07:58:00* Test Item Value Reference Range Interpretation Comments SARS-COV2/RT-PCR (test code = 65855-4) Negative N ot Detected, Negative, See external report for linked test SARS-COV-2 PERFORMING LAB (test code = 66118-7) [facility] ROSALIND ALICIA (test code = ALICIA) Negative result for this bella t determines that SARS-CoV-2 RNA was not present in the specimen above the Limit of Detection (LOD). However, Negative results do not preclude SARS-CoV-2 infection and should not be used as the sole basis for treatment or patient management decisions. Negative results must be combined with clinical observations, patient history, and epidemiological information. A false negative result may occur if a specimen is improperly collected, transported or handled. A false negative result should be considered if patient's recent exposures or clinical presentation indicate that COVID-19 (SARS-CoV-2) is likely and diagnostic tests for other causes of illness are negative. Re-testing should be considered in cases of suspected false negatives. The limit of detection for this assay is 800 copies/mL. This SARS CoV-2 test is a real-time RT-PCR test intended for the qualitative detection of nucleic acid from SARS-CoV-2 in a nasopharyngeal swab specimen collected from individuals suspected of COVID-19 by their healthcare provider. This test has not been Food and Drug Administration (FDA) cleared or approved. This is a modified version of an approved Emergency Use Authorization (EUA) and is in the process of review by the FDA. Once authorized by the FDA, the issued EUA will be effective until the declaration that circumstances exist justifying the authorization of the emergency use of in vitro diagnostic tests for detection and/or diagnosis of COVID-19 is terminated under Section 564(b)(2) of the Act or the EUA is revoked under Section 564(g) of the Act. Fact Sheet for Healthcare Providers:https://www.Globial/sites/default/files/product/documents/Fact_Shee n_SL_Pynhfvwme_Yhel_JBCQ-TlW-4.pdf Fact Sheet for Healthcare Patients:https://www.Rebit.CÜR/sites/default/files/pro duct/documents/Pidj_Tswtn_Ainllkpq_Nyel_LTJA-AhT-5.pdf Performing Laboratory:[facility] [place] [address] [facility])2019-11-29 07:58:00* Test Item Value Reference Range Interpretation Comments SARS-COV2/RT-PCR (test code = 9068809) Negative N ot Detected, Negative, See external report for linked test SARS-COV-2 PERFORMING LAB (test code = 6545331) [facility] ROSALIND Negative result for this test determines that SARS-CoV-2 RNA was not present in the specimen above the Limit of Detection (LOD). However, Negative results do n ot preclude SARS-CoV-2 infection and should not be used as the sole basis for tr eatment or patient management decisions. Negative results must be combined with clinical observations, patient history, and epidemiological information. A false negative result may occur if a specimen is improperly collected, transported or handled. A false negative result should be considered if patient's recent expo sures or clinical presentation indicate that COVID-19 (SARS-CoV-2) is likely and diagnostic tests for other causes of illness are negative. Re-testing should be considered in cases of suspected false negatives.The limit of detection for this assay is 800 copies/mL.This SARS CoV-2 test is a real-time RT-PCR test intended for the qualitative detection of nucleic acid from SARS-CoV-2 in a nasopharyn geal swab specimen collected from individuals suspected of [facility].This test has not been Food and Drug Administration (FDA) clear ed or approved. This is a modified version of an approved Emergency Use Authori zation (EUA) and is in the process of review by the FDA. Once authorized by [facility] FDA, the issued EUA will be effective until the declaration that circumstances exist justifying the authorization of the emergency use of in vitro diagnostic tests for detection and/or diagnosis of COVID-19 is terminated under Section 564 (b)(2) of the Act or the EUA is revoked under Section 564(g) of the Act.Fact She et for Healthcare Providers:https://www.quidel.com/sites/default/files/product/d ocuments/Kukb_Ozohd_BM_Qpozheofk_Mylt_FQGT-XqF-4.pdfFact Sheet for Healthcare Cameron lorenz:https://www.Globial/sites/default/files/product/documents/Fact_Sheet_P nvxztqv_Bngg_UJVU-FgI-8.pdfPerforming Laboratory:[facility] [address], [place] [address]Sfnft metabolic [id number] 04:12:00* Test Item Value Reference Range Interpretation Comments Sodium (test code = 2951-2) 135 meq/L 136-145 L Potassium (test code = 2823-3) 3.6 meq/L 3.5-5.1 Chloride (test code = 2075-0) 97 meq/L 98-107 L CO2 (test code = 8-9) 27 meq/L 22-29 BUN (test code = 3094-0) 10 mg/dL 7-21 Creatinine (test code = 2160-0) 0.77 mg/dL 0.57-1.25 Glucose (test code = 2345-7) 100 mg/dL 70-105 Calcium (test code = 34312-0) 10.4 mg/dL 8.4-10.2 H EGFR (test code = 86602-3) 87 mL/min/1.73 sq m ESTIMATED GFR IS NOT ACCURATE CREATININE CLEARANCE IN PREDICTING GLOMERULAR FILTRATION RATE. ESTIMATED GFR IS NOT APPLICABLE FOR DIALYSIS PATIENTS. ALICIA (test code = ALICIA) [employer] ID - EDASI Lab Interpretation (test code = 74912-4) [facility] [id number] 04:12:00* Test Item Value Reference Range Interpretation Comments Protein, Total (test code = 2885-2) 8.8 6.0- 8.3 gm/dL H Albumin (test code = 38762-8) 4.8 g/dL 3.5-5 Total Bilirubin (test code = 1975-2) 0.4 mg/dL 0.2-1.2 Bilirubin, Direct (test code = 1967-7) 0.2 mg/dL 0.1-0.5 Alkaline Phosphatase (test code = 6768-6) 93 U/L 40-150 AST (test code = 1920-8) 19 U/L 5-34 ALT (test code = 1742-6) 14 U/L 6-55 ALICIA (test code = ALICIA) [employer] ID - EDASI Lab Interpretation (test code = 31771-6) [facility]normal [facility]2020-[facility] 04:12:00* Test Item Value Reference Range Interpretation Comments Magnesium (test code = 05600-4) 1.7 mg/dL 1.6-2.6 ALICIA (test code = ALICIA) [employer] ID - EDASI Lab Interpretation (test code = 76800-1) [facility] 04:12:00* Test Item Value Reference Range Interpretation Comments MAGNESIUM (BEAKER) (test code = 627) 1.7 mg/dL 1.6-2.6 [employer] ID - EDASIBASIC METABOLIC [id number] 04:12:00* Test Item Value Reference Range Interpretation Comments SODIUM (BEAKER) (test code = 381) 135 meq/L 136-145 L POTASSIUM (BEAKER) (test code = 379) 3.6 meq/L 3.5-5.1 CHLORIDE (BEAKER) (test code = 382) 97 meq/L 98-107 L CO2 (BEAKER) (test code = 355) 27 meq/L 22-29 BLOOD UREA NITROGEN (BEAKER) (test code = 354) 10 mg/dL 7-21 CREATININE (BEAKER) (test code = 358) 0.77 mg/dL 0.57-1.25 GLUCOSE RANDOM (BEAKER) (test code = 652) 100 mg/dL 70-105 CALCIUM (BEAKER) (test code = 697) 10.4 mg/dL 8.4-10.2 H EGFR (BEAKER) (test code = 1092) 87 mL/min/1.73 sq m ESTIMATED GFR IS NOT ACCURATE CREATININE CLEARANCE IN PREDICTING GLOMERULAR FILTRATION RATE. ESTIMATED GFR IS NOT APPLICABLE FOR DIALYSIS PATIENTS. [employer] ID - EDASIHEPATIC FUNCTION [id number] 04:12:00* Test Item Value Reference Range Interpretation Comments TOTAL PROTEIN (BEAKER) (test code = 770) 8.8 gm/dL 6.0-8.3 H ALBUMIN (BEAKER) (test code = 1145) 4.8 g/dL 3.5-5.0 BILIRUBIN TOTAL (BEAKER) (test code = 377) 0.4 mg/dL 0.2-1.2 BILIRUBIN DIRECT (BEAKER) (test code = 706) 0.2 mg/dL 0.1-0.5 ALKALINE PHOSPHATASE (BEAKER) (test code = 346) 93 U/L 40-150 AST (SGOT) (BEAKER) (test code = 353) 19 U/L 5-34 ALT (SGPT) (BEAKER) (test code = 347) 14 U/L 6-55 [employer] ID - EDASICBC with platelet count + automated [id number] 04:03:00* Test Item Value Reference Range Interpretation Comments WBC (test code = 6690-2) 9.7 3.5- 10.5 K/L RBC (test code = 789-8) 4.08 3.93- 5.22 M/L MCHC (test code = 786-4) 31.3 32.2- 35.5 GM/DL L Hematocrit (test code = 4544-3) 32.6 % 34.1-44.9 L MCV (test code = 787-2) 79.9 fL 79.4-94.8 MCH (test code = 785-6) 25.0 pg 25.6-32.2 L RDW (test code = 788-0) 19.0 % 11.7-14.4 H Platelets (test code = 777-3) 324 150- 450 K/CU MM MPV (test code = 50483-9) 10.6 fL 9.4-12.3 nRBC (test code = 413) 0 0- 0 /100 WBC % Neutros (test code = 429) 82 % % Lymphs (test code = 430) 13 % % Monos (test code = 431) 5 % % Eos (test code = 432) 0 % % Baso (test code = 437) 0 % # Neutros (test code = 670) 7.90 1.56- 6.13 K/L H # Lymphs (test code = 414) 1.23 1.18- 3.74 K/L # Monos (test code = 415) 0.47 0.24- 0.36 K/L H # Eos (test code = 416) 0.01 0.04- 0.36 K/L L # Baso (test code = 417) 0.01 0.01- 0.08 K/L Immature Granulocytes-Relative (test code = 2801) 0 % 0-1 Lab Interpretation (test code = 73120-5) Abnormal [facility] W/PLT COUNT & AUTO [id number] 04:03:00* Test Item Value Reference Range Interpretation Comments WHITE BLOOD CELL COUNT (BEAKER) (test code = 775) 9.7 K/ L 3.5- 10.5 RED BLOOD CELL COUNT (BEAKER) (test code = 761) 4.08 M/ L 3.93-5 .22 HEMOGLOBIN (BEAKER) (test code = 410) 10.2 GM/DL 11.2-15.7 L HEMATOCRIT (BEAKER) (test code = 411) 32.6 % 34.1-44.9 L MEAN CORPUSCULAR VOLUME (BEAKER) (test code = 753) 79.9 fL 79. 4-94.8 MEAN CORPUSCULAR HEMOGLOBIN (BEAKER) (test code = 751) 25.0 pg 25.6-32.2 L MEAN CORPUSCULAR HEMOGLOBIN CONC (BEAKER) (test code = 752) 31.3 GM/DL 32.2-35.5 L RED CELL DISTRIBUTION WIDTH (BEAKER) (test code = 412) 19.0 % 11.7-14.4 H PLATELET COUNT (BEAKER) (test code = 756) 324 K/CU MM 150-450 MEAN PLATELET VOLUME (BEAKER) (test code = 754) 10.6 fL 9.4-12 .3 NUCLEATED RED BLOOD CELLS (BEAKER) (test code = 413) 0 /100 WBC 0 -0 NEUTROPHILS RELATIVE PERCENT (BEAKER) (test code = 429) 82 % LYMPHOCYTES RELATIVE PERCENT (BEAKER) (test code = 430) 13 % MONOCYTES RELATIVE PERCENT (BEAKER) (test code = 431) 5 % EOSINOPHILS RELATIVE PERCENT (BEAKER) (test code = 432) 0 % BASOPHILS RELATIVE PERCENT (BEAKER) (test code = 437) 0 % NEUTROPHILS ABSOLUTE COUNT (BEAKER) (test code = 670) 7.90 K/ L 1.56-6.13 H LYMPHOCYTES ABSOLUTE COUNT (BEAKER) (test code = 414) 1.23 K/ L 1.18-3.74 MONOCYTES ABSOLUTE COUNT (BEAKER) (test code = 415) 0.47 K/ L 0. 24-0.36 H EOSINOPHILS ABSOLUTE COUNT (BEAKER) (test code = 416) 0.01 K/ L 0.04-0.36 L BASOPHILS ABSOLUTE COUNT (BEAKER) (test code = 417) 0.01 K/ L 0. 01-0.08 IMMATURE GRANULOCYTES-RELATIVE PERCENT (BEAKER) (test code = 2801) 0 % 0-1 Screen, [id number] 17:24:00* Test Item Value Reference Range Interpretation Comments Preg Test, Ur (test code = 2112-1) Negative [facility] [id number] 17:24:00* Test Item Value Reference Range Interpretation Comments TEST URINE (BEAKER) (test code = 583) Negative Urinalysis w/Microscopic + Reflex to [id number] 17:23:00* Test Item Value Reference Range Interpretation Comments Color, UA (test code = 5778-6) Light Yellow Clarity, UA (test code = 5767-9) Clear Specific [place], UA (test code = 5811-5) 1.013 1.001-1.035 pH, UA (test code = 5803-2) 8.0 5.0-8.0 Protein, UA (test code = 20271-7) 20 mg/dL Negative A Glucose, UA (test code = 365) 50 mg/dL Negative A Ketones, UA (test code = 2514-8) Negative Negative Bilirubin, UA (test code = 22945-1) Negative Negative Blood, UA (test code = 00284-5) Negative Negative Nitrite, UA (test code = 5802-4) Negative Negative Leukocytes, UA (test code = 5799-2) Trace Negative A Urobilinogen, UA (test code = 39522-1) 0.2 mg/dL 0.2-1 RBC, UA (test code = 15793-7) 1 /HPF WBC, UA (test code = 5821-4) 4 /HPF Bacteria, UA (test code = 62948-4) Rare Mucus (test code = 8247-9) Rare Squam Epithel, UA (test code = 84334-2) 6 /HPF Amorphous Crystals (test code = 78204-6) Rare Specimen Source (test code = 2795) ALICIA (test code = ALICIA) [employer] ID - [auto][employer] ID - tech Lab Interpretation (test code = 59242-8) Abnormal [facility] URINE [id number] 17:23:00* Test Item Value Reference Range Interpretation Comments COLOR (BEAKER) (test code = 470) Light Yellow CLARITY (BEAKER) (test code = 469) Clear SPECIFIC GRAVITY UA (BEAKER) (test code = 468) 1.013 1.001-1 .035 PH UA (BEAKER) (test code = 467) 8.0 5.0-8.0 PROTEIN UA (BEAKER) (test code = 464) 20 mg/dL Negative A GLUCOSE UA (BEAKER) (test code = 365) 50 mg/dL Negative A KETONES UA (BEAKER) (test code = 371) Negative Negative BILIRUBIN UA (BEAKER) (test code = 462) Negative Negative BLOOD UA (BEAKER) (test code = 461) Negative Negative NITRITE UA (BEAKER) (test code = 465) Negative Negative LEUKOCYTE ESTERASE UA (BEAKER) (test code = 466) Trace Negat wiliam A UROBILINOGEN UA (BEAKER) (test code = 463) 0.2 mg/dL 0.2-1.0 RBC UA (BEAKER) (test code = 519) 1 /HPF WBC UA (BEAKER) (test code = 520) 4 /HPF BACTERIA (BEAKER) (test code = 517) Rare MUCUS (BEAKER) (test code = 1574) Rare SQUAMOUS EPITHELIAL (BEAKER) (test code = 516) 6 /HPF AMORPHOUS CRYSTALS (BEAKER) (test code = 1584) Rare SOURCE(BEAKER) (test code = 2795) [employer] ID - [auto][employer] ID - techComprehensive metabolic [id number] 12:59:00* Test Item Value Reference Range Interpretation Comments Protein, Total (test code = 2885-2) 8.8 6.0- 8.3 gm/dL H Specimen moderately hemolyzed Albumin (test code = 61653-9) 4.6 g/dL 3.5-5 Specimen moderately hemolyzed Alkaline Phosphatase (test code = 6768-6) 97 U/L 40-150 Total Bilirubin (test code = 1975-2) 0.3 mg/dL 0.2-1.2 Specimen moderately hemolyzed Sodium (test code = 2951-2) 139 meq/L 136-145 Potassium (test code = 2823-3) 4.2 meq/L 3.5-5.1 Specimen moderately hemolyzed Chloride (test code = 5-0) 105 meq/L 98-107 CO2 (test code = 2027-9) 20 meq/L 22-29 L BUN (test code = 3094-0) 8 mg/dL 7-21 Creatinine (test code = 2160-0) 0.65 mg/dL 0.57-1.25 Specimen moderately hemolyzed Glucose (test code = 2345-7) 146 mg/dL 70-105 H Calcium (test code = 28105-0) 9.5 mg/dL 8.4-10.2 AST (test code = 1920-8) 30 U/L 5-34 Spe cimen moderately hemolyzed ALT (test code = 1742-6) 16 U/L 6-55 Spe cimen moderately hemolyzed EGFR (test code = 68111-8) 106 mL/min/1.73 sq m ESTIMATED GFR IS NOT ACCURATE CREATININE CLEARANCE IN PREDICTING GLOMERULAR FILTRATION RATE. ESTIMATED GFR IS NOT APPLICABLE FOR DIALYSIS PATIENTS. ALICIA (test code = ALICIA) [employer] ID - EDASI Lab Interpretation (test code = 37917-0) [facility]normal [facility] 12:59[facility]* Test Item Value Reference Range Interpretation Comments Lipase (test code = 3040-3) 8 U/L 8-78 ALICIA (test code = ALICIA) [employer] ID - EDASI Lab Interpretation (test code = 05037-0) Normal [facility]2020-[facility] 12:59:00* Test Item Value Reference Range Interpretation Comments LIPASE (BEAKER) (test code = 749) 8 U/L 8-78 [employer] ID - EDASICOMPREHENSIVE METABOLIC [id number] 12:59:00* Test Item Value Reference Range Interpretation Comments TOTAL PROTEIN (BEAKER) (test code = 770) 8.8 gm/dL 6.0-8.3 H Specimen moderately hemolyzed ALBUMIN (BEAKER) (test code = 1145) 4.6 g/dL 3.5-5.0 Specimen moderately hemolyzed ALKALINE PHOSPHATASE (BEAKER) (test code = 346) 97 U/L 40-150 BILIRUBIN TOTAL (BEAKER) (test code = 377) 0.3 mg/dL 0.2-1.2 Specimen moderately hemolyzed SODIUM (BEAKER) (test code = 381) 139 meq/L 136-145 POTASSIUM (BEAKER) (test code = 379) 4.2 meq/L 3.5-5.1 Specimen moderately hemolyzed CHLORIDE (BEAKER) (test code = 382) 105 meq/L 98-107 CO2 (BEAKER) (test code = 355) 20 meq/L 22-29 L BLOOD UREA NITROGEN (BEAKER) (test code = 354) 8 mg/dL 7-21 CREATININE (BEAKER) (test code = 358) 0.65 mg/dL 0.57-1.25 Specimen moderately hemolyzed GLUCOSE RANDOM (BEAKER) (test code = 652) 146 mg/dL 70-105 H CALCIUM (BEAKER) (test code = 697) 9.5 mg/dL 8.4-10.2 AST (SGOT) (BEAKER) (test code = 353) 30 U/L 5-34 Specimen moderately hemolyzed ALT (SGPT) (BEAKER) (test code = 347) 16 U/L 6-55 Specimen moderately hemolyzed EGFR (BEAKER) (test code = 1092) 106 mL/min/1.73 sq m ESTIMATED GFR IS NOT ACCURATE CREATININE CLEARANCE IN PREDICTING GLOMERULAR FILTRATION RATE. ESTIMATED GFR IS NOT APPLICABLE FOR DIALYSIS PATIENTS. [employer] ID - EDASICBC W/PLT COUNT & AUTO [id number] 12:56:00* Test Item Value Reference Range Interpretation Comments WHITE BLOOD CELL COUNT (BEAKER) (test code = 775) 15.4 K/ L 3.5- 10.5 H RED BLOOD CELL COUNT (BEAKER) (test code = 761) 4.23 M/ L 3.93-5 .22 HEMOGLOBIN (BEAKER) (test code = 410) 10.6 GM/DL 11.2-15.7 L HEMATOCRIT (BEAKER) (test code = 411) 34.4 % 34.1-44.9 MEAN CORPUSCULAR VOLUME (BEAKER) (test code = 753) 81.3 fL 79. 4-94.8 MEAN CORPUSCULAR HEMOGLOBIN (BEAKER) (test code = 751) 25.1 pg 25.6-32.2 L MEAN CORPUSCULAR HEMOGLOBIN CONC (BEAKER) (test code = 752) 30.8 GM/DL 32.2-35.5 L RED CELL DISTRIBUTION WIDTH (BEAKER) (test code = 412) 19.2 % 11.7-14.4 H PLATELET COUNT (BEAKER) (test code = 756) 385 K/CU MM 150-450 MEAN PLATELET VOLUME (BEAKER) (test code = 754) 10.0 fL 9.4-12 .3 NUCLEATED RED BLOOD CELLS (BEAKER) (test code = 413) 0 /100 WBC 0 -0 NEUTROPHILS RELATIVE PERCENT (BEAKER) (test code = 429) 94 % LYMPHOCYTES RELATIVE PERCENT (BEAKER) (test code = 430) 4 % MONOCYTES RELATIVE PERCENT (BEAKER) (test code = 431) 2 % EOSINOPHILS RELATIVE PERCENT (BEAKER) (test code = 432) 0 % BASOPHILS RELATIVE PERCENT (BEAKER) (test code = 437) 0 % NEUTROPHILS ABSOLUTE COUNT (BEAKER) (test code = 670) 14.40 K/ L 1.56-6.13 H LYMPHOCYTES ABSOLUTE COUNT (BEAKER) (test code = 414) 0.58 K/ L 1.18-3.74 L MONOCYTES ABSOLUTE COUNT (BEAKER) (test code = 415) 0.29 K/ L 0. 24-0.36 EOSINOPHILS ABSOLUTE COUNT (BEAKER) (test code = 416) 0.01 K/ L 0.04-0.36 L BASOPHILS ABSOLUTE COUNT (BEAKER) (test code = 417) 0.02 K/ L 0. 01-0.08 IMMATURE GRANULOCYTES-RELATIVE PERCENT (BEAKER) (test code = 2801) 0 % 0-1 CT Abdomen Pelvis Wo [id number] 10:58:50Hm Interface, Radiology Results 11/26/2019 11:01 AM CDTEXAM:CT ABDOMEN PELVIS WO CONTRASTINDICATION:RLQ pain ho endometriosisCOMPARISON:None.TECHNIQUE:Without administration of iodinated contrast intravenously, axial CT images of the abdomen and pelvis were obtained. Coronal and sagittal reformations were ob tained. 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 No adenopathy in visualized chest.Minimal linear opacity lateral asp ect lingula. Patchy groundglass opacities dependent bilateral lower lungs, likel y secondary to hypoinflation.Breasts are unremarkable.AbdomenSubtle hypodensity liver adjacent falciform ligament, compatible with focal fatty infiltration, unc hanged. Otherwise, liver is normal.Status post cholecystectomy. No intrahepatic biliary dilatation. Common bile duct is unremarkable.Pancreas is normal.Spleen i s normal.Bilateral adrenals are normal.Bilateral kidneys are normal.Stomach is m inimally distended with fluid. Gastric wall is normal. Duodenum is normal. Remai nder visualized small bowel is normal. Appendix is not definitively identified. Surgical material adjacent to the tip of the cecum. Findings favor prior appende ctomy. Diverticula at the hepatic flexure and splenic flexure the colon. No evid ence of acute diverticulitis.Pelvis:Bladder is moderately distended with urine. Bladder mack normal.Status post hysterectomy. Bilateral adnexa are unremarkable . Fluid was pelvis.Rectum is normal.Bilateral inguinal canals and ischiorectal f dhruv are normal.Vascular:Full evaluation of vascular structures limited by lack of intravenous contrast. No abdominal, pelvic, or inguinal adenopathy.Musculoske letal:Moderate linear opacity along the anterolateral aspect of the left iliac c rest increasing conspicuity since prior exam. 3.0 x 2.0 cm centrally fluid densi ty peripherally soft tissue density collection along the lateral margin of the l eft iliac crest, significantly decreasing from 5.5 x 3.8 cm, likely resolving he matoma.Persistent centrally lucent peripherally sclerotic focus within the later al margin of the superior left iliac crest. Post pathologic fracture with mild i nterval reduction and partial osseous fusion anteriorly.Mild arthrosis pubic sym physis.Mild degenerative changes of the lower thoracic spine.No suspicious osseo us or soft tissue structures.IMPRESSION:1. No CT evidence of acute abdominopelvi c abnormality to explain right lower quadrant pain. In particular, no evidence o f right lower quadrant mass suggest endometriosis. Please note, however, that no ncontrast CT has limited sensitivity endometriosis. If pain persists and clinica l suspicion for endometriosis is high, recommend further evaluation with contras t-enhanced MRI of the pelvis.2. Healing fracture anterolateral margin left iliac crest. Possible underlying radiolucent lesion. If indicated, this could be furt her evaluated on the MRI of the pelvis recommended above is well.3. 3.0 x 2.0 cm collection along the lateral margin left iliac crest, decreasing from 5.5 x 3.8 cm previously, likely resolving hematoma.[id number] MethodisthCG qualitative, urine [id number] 10:08:09* Test Item Value Reference Range Interpretation Comments hCG qualitative, urine (test code = 2106-3) Negative Sensitivity of HCG test: 25 mIU/mL Kody GilmanPartial thromboplastin time, [id number] 17:08:28* Test Item Value Reference Range Interpretation Comments PTT (test code = 98649-3) 30.9 23.0- 36.0 sec PTT therapeutic range for unfractionated heparin is61.0-112.0 seconds which corresponds to Anti-Xa0.3-0.7 U/ml. Kody GilmanProthrombin time with [id number] 16:49:53* Test Item Value Reference Range Interpretation Comments Prothrombin time (test code = 5902-2) 12.9 11.5- 14.5 sec INR (test code = 25601-6) 1.0 Th e International Normalized Ratio (INR) is a therapeutic monitoring tool for patients who are stable on oral anticoagulant therapy. An INR of 2.0-3.0 is suggested for deep vein thrombosis/pulmonary embolism. Kody SuazoARS-COV2/RT-PCR ([facility])2019-10-17 18:26:00* Test Item Value Reference Range Interpretation Comments SARS-COV2/RT-PCR (test code = 0755854) Negative N ot Detected, Negative, See external report for linked test SARS-COV-2 PERFORMING LAB (test code = 8040109) [facility] ROSALIND Negative result for this test determines that SARS-CoV-2 RNA was not present in the specimen above the Limit of Detection (LOD). However, Negative results do n ot preclude SARS-CoV-2 infection and should not be used as the sole basis for tr eatment or patient management decisions. Negative results must be combined with clinical observations, patient history, and epidemiological information. A false negative result may occur if a specimen is improperly collected, transported or handled. A false negative result should be considered if patient's recent expo sures or clinical presentation indicate that COVID-19 (SARS-CoV-2) is likely and diagnostic tests for other causes of illness are negative. Re-testing should b e considered in cases of suspected false negatives.The limit of detection for th is assay is 800 copies/mL.This SARS CoV-2 test is a real-time RT-PCR test intend ed for the qualitative detection of nucleic acid from SARS-CoV-2 in a nasopharyn geal swab specimen collected from individuals suspected of [facility].This test has not been Food and Drug Administration (FDA) clear ed or approved. This is a modified version of an approved Emergency Use Authori zation (EUA) and is in the process of review by the FDA. Once authorized by [facility], the issued EUA will be effective until the declaration that circumstances exist justifying the authorization of the emergency use of in vitro diagnostic tests for detection and/or diagnosis of COVID-19 is terminated under Section 564 (b)(2) of the Act or the EUA is revoked under Section 564(g) of the Act.Fact She et for Healthcare Providers:https://www.[employer]ÜR/sites/default/files/product/d ocuments/Xkyb_Rhmap_OW_Uzqkfxhej_Nkrn_QQLH-YkA-9.pdfFact Sheet for Healthcare Cameron lorenz:https://www.[employer]R/sites/default/files/product/documents/Fact_Sheet_P wbzowfb_Eirw_OFYW-SgM-0.pdfPerforming Laboratory:[facility] [address], [place] [address]NMZUXOCDDH W/ REFLEX URINE [id number] 12:49:00* Test Item Value Reference Range Interpretation Comments COLOR (BEAKER) (test code = 470) Light Yellow CLARITY (BEAKER) (test code = 469) Hazy SPECIFIC GRAVITY UA (BEAKER) (test code = 468) 1.039 1.001-1 .035 H PH UA (BEAKER) (test code = 467) 7.5 5.0-8.0 PROTEIN UA (BEAKER) (test code = 464) 10 mg/dL Negative A GLUCOSE UA (BEAKER) (test code = 365) Negative Negative KETONES UA (BEAKER) (test code = 371) Negative Negative BILIRUBIN UA (BEAKER) (test code = 462) Negative Negative BLOOD UA (BEAKER) (test code = 461) Negative Negative NITRITE UA (BEAKER) (test code = 465) Negative Negative LEUKOCYTE ESTERASE UA (BEAKER) (test code = 466) Moderate Negat wiliam A UROBILINOGEN UA (BEAKER) (test code = 463) 0.2 mg/dL 0.2-1.0 RBC UA (BEAKER) (test code = 519) 0 /HPF WBC UA (BEAKER) (test code = 520) 7 /HPF SQUAMOUS EPITHELIAL (BEAKER) (test code = 516) 91 /HPF SOURCE(BEAKER) (test code = 2795) [employer] ID - [auto][employer] ID - hankCT, [id number] 12:05:00DR STRIBLINGPATIENT HAS HAD A HYSTERECTOMYUnlisted Reason for Exam - Click Yes and Enter Reason Below->NoFINAL REPORT ABDOMINAL AND PELVIS CT DATED 10/17/2019 [...] ascites is present. IMPRESSION: 1. Diverticulosis without diverticulitis.2. Status post cholecystectomy and hysterectomy.3. Left renal cyst. Signed: Kim Marquez MDReport Verified Date/Time: 10/17/2019 12:05:28 Reading Location: [facility] C013Y CT Body Reading Room abdomen/pelvis with IV contrast 2019-10-17 12:05:00Interface, External Ris In - 10/17/2019 12:07 PM CDTFINAL REPORT ABDOMINAL AND PELVIS CT DATED 10/17/2019 [...] is normal in caliber. Appendix is not vi sualized. The urinary bladder is contracted. Uterus surgically absent. No mass, adenopathy or ascites is present. IMPRESSION: 1. Diverticulosis without diverti culitis.2. Status post cholecystectomy and hysterectomy.3. Left renal cyst. Sign ed: Kim Marquez MDReport Verified Date/Time: 10/17/2019 12:05:28 Reading Locati on: [facility] B1 C013Y CT Body Reading Room [facility] HospitalHEPAT[facility] FUNCTION [id number] 10:40:00* Test Item Value Reference Range Interpretation Comments TOTAL PROTEIN (BEAKER) (test code = 770) 8.2 gm/dL 6.0-8.3 ALBUMIN (BEAKER) (test code = 1145) 4.6 g/dL 3.5-5.0 BILIRUBIN TOTAL (BEAKER) (test code = 377) 0.5 mg/dL 0.2-1.2 BILIRUBIN DIRECT (BEAKER) (test code = 706) 0.3 mg/dL 0.1-0.5 ALKALINE PHOSPHATASE (BEAKER) (test code = 346) 123 U/L 40-150 AST (SGOT) (BEAKER) (test code = 353) 24 U/L 5-34 ALT (SGPT) (BEAKER) (test code = 347) 24 U/L 6-55 [employer] ID - EDASIOperator ID - AAHAMIDBASIC METABOLIC [id number] 10:25:00 * Test Item Value Reference Range Interpretation Comments SODIUM (BEAKER) (test code = 381) 140 meq/L 136-145 POTASSIUM (BEAKER) (test code = 379) 3.7 meq/L 3.5-5.1 CHLORIDE (BEAKER) (test code = 382) 106 meq/L 98-107 CO2 (BEAKER) (test code = 355) 23 meq/L 22-29 BLOOD UREA NITROGEN (BEAKER) (test code = 354) 8 mg/dL 7-21 CREATININE (BEAKER) (test code = 358) 0.66 mg/dL 0.57-1.25 GLUCOSE RANDOM (BEAKER) (test code = 652) 102 mg/dL 70-105 CALCIUM (BEAKER) (test code = 697) 9.8 mg/dL 8.4-10.2 EGFR (BEAKER) (test code = 1092) 104 mL/min/1.73 sq m ESTIMATED GFR IS NOT ACCURATE CREATININE CLEARANCE IN PREDICTING GLOMERULAR FILTRATION RATE. ESTIMATED GFR IS NOT APPLICABLE FOR DIALYSIS PATIENTS. [employer] ID - [id number] 10:25:00* Test Item Value Reference Range Interpretation Comments LIPASE (BEAKER) (test code = 749) 29 U/L 8-78 [employer] ID - EDASICBC W/PLT COUNT & AUTO [id number] 10:09:00* Test Item Value Reference Range Interpretation Comments WHITE BLOOD CELL COUNT (BEAKER) (test code = 775) 6.1 K/ L 3.5- 10.5 RED BLOOD CELL COUNT (BEAKER) (test code = 761) 3.89 M/ L 3.93-5 .22 L HEMOGLOBIN (BEAKER) (test code = 410) 10.0 GM/DL 11.2-15.7 L HEMATOCRIT (BEAKER) (test code = 411) 32.7 % 34.1-44.9 L MEAN CORPUSCULAR VOLUME (BEAKER) (test code = 753) 84.1 fL 79. 4-94.8 MEAN CORPUSCULAR HEMOGLOBIN (BEAKER) (test code = 751) 25.7 pg 25.6-32.2 MEAN CORPUSCULAR HEMOGLOBIN CONC (BEAKER) (test code = 752) 30.6 GM/DL 32.2-35.5 L RED CELL DISTRIBUTION WIDTH (BEAKER) (test code = 412) 18.1 % 11.7-14.4 H PLATELET COUNT (BEAKER) (test code = 756) 496 K/CU MM 150-450 H MEAN PLATELET VOLUME (BEAKER) (test code = 754) 9.9 fL 9.4-12 .3 NUCLEATED RED BLOOD CELLS (BEAKER) (test code = 413) 0 /100 WBC 0 -0 NEUTROPHILS RELATIVE PERCENT (BEAKER) (test code = 429) 80 % LYMPHOCYTES RELATIVE PERCENT (BEAKER) (test code = 430) 16 % MONOCYTES RELATIVE PERCENT (BEAKER) (test code = 431) 2 % EOSINOPHILS RELATIVE PERCENT (BEAKER) (test code = 432) 1 % BASOPHILS RELATIVE PERCENT (BEAKER) (test code = 437) 1 % NEUTROPHILS ABSOLUTE COUNT (BEAKER) (test code = 670) 4.83 K/ L 1.56-6.13 LYMPHOCYTES ABSOLUTE COUNT (BEAKER) (test code = 414) 0.96 K/ L 1.18-3.74 L MONOCYTES ABSOLUTE COUNT (BEAKER) (test code = 415) 0.14 K/ L 0. 24-0.36 L EOSINOPHILS ABSOLUTE COUNT (BEAKER) (test code = 416) 0.06 K/ L 0.04-0.36 BASOPHILS ABSOLUTE COUNT (BEAKER) (test code = 417) 0.03 K/ L 0. 01-0.08 IMMATURE GRANULOCYTES-RELATIVE PERCENT (BEAKER) (test code = 2801) 1 % 0-1 CBC W/PLT COUNT & AUTO [id number] 13:07:00* Test Item Value Reference Range Interpretation Comments WHITE BLOOD CELL COUNT (BEAKER) (test code = 775) 6.7 K/ L 3.5- 10.5 RED BLOOD CELL COUNT (BEAKER) (test code = 761) 4.19 M/ L 3.93-5 .22 HEMOGLOBIN (BEAKER) (test code = 410) 10.4 GM/DL 11.2-15.7 L HEMATOCRIT (BEAKER) (test code = 411) 34.6 % 34.1-44.9 MEAN CORPUSCULAR VOLUME (BEAKER) (test code = 753) 82.6 fL 79. 4-94.8 MEAN CORPUSCULAR HEMOGLOBIN (BEAKER) (test code = 751) 24.8 pg 25.6-32.2 L MEAN CORPUSCULAR HEMOGLOBIN CONC (BEAKER) (test code = 752) 30.1 GM/DL 32.2-35.5 L RED CELL DISTRIBUTION WIDTH (BEAKER) (test code = 412) 18.5 % 11.7-14.4 H PLATELET COUNT (BEAKER) (test code = 756) 447 K/CU MM 150-450 MEAN PLATELET VOLUME (BEAKER) (test code = 754) 10.9 fL 9.4-12 .3 NUCLEATED RED BLOOD CELLS (BEAKER) (test code = 413) 0 /100 WBC 0 -0 NEUTROPHILS RELATIVE PERCENT (BEAKER) (test code = 429) 60 % LYMPHOCYTES RELATIVE PERCENT (BEAKER) (test code = 430) 31 % MONOCYTES RELATIVE PERCENT (BEAKER) (test code = 431) 5 % EOSINOPHILS RELATIVE PERCENT (BEAKER) (test code = 432) 3 % BASOPHILS RELATIVE PERCENT (BEAKER) (test code = 437) 0 % NEUTROPHILS ABSOLUTE COUNT (BEAKER) (test code = 670) 4.04 K/ L 1.56-6.13 LYMPHOCYTES ABSOLUTE COUNT (BEAKER) (test code = 414) 2.08 K/ L 1.18-3.74 MONOCYTES ABSOLUTE COUNT (BEAKER) (test code = 415) 0.32 K/ L 0. 24-0.36 EOSINOPHILS ABSOLUTE COUNT (BEAKER) (test code = 416) 0.21 K/ L 0.04-0.36 BASOPHILS ABSOLUTE COUNT (BEAKER) (test code = 417) 0.03 K/ L 0. 01-0.08 IMMATURE GRANULOCYTES-RELATIVE PERCENT (BEAKER) (test code = 2801) 0 % 0-1 COMPREHENSIVE METABOLIC [id number] 12:28:00* Test Item Value Reference Range Interpretation Comments TOTAL PROTEIN (BEAKER) (test code = 770) 7.6 gm/dL 6.0-8.3 ALBUMIN (BEAKER) (test code = 1145) 4.2 g/dL 3.5-5.0 ALKALINE PHOSPHATASE (BEAKER) (test code = 346) 115 U/L 40-150 BILIRUBIN TOTAL (BEAKER) (test code = 377) 0.3 mg/dL 0.2-1.2 SODIUM (BEAKER) (test code = 381) 136 meq/L 136-145 POTASSIUM (BEAKER) (test code = 379) 3.6 meq/L 3.5-5.1 CHLORIDE (BEAKER) (test code = 382) 105 meq/L 98-107 CO2 (BEAKER) (test code = 355) 25 meq/L 22-29 BLOOD UREA NITROGEN (BEAKER) (test code = 354) 9 mg/dL 7-21 CREATININE (BEAKER) (test code = 358) 0.65 mg/dL 0.57-1.25 GLUCOSE RANDOM (BEAKER) (test code = 652) 89 mg/dL 70-105 CALCIUM (BEAKER) (test code = 697) 9.4 mg/dL 8.4-10.2 AST (SGOT) (BEAKER) (test code = 353) 14 U/L 5-34 ALT (SGPT) (BEAKER) (test code = 347) 21 U/L 6-55 EGFR (BEAKER) (test code = 1092) 106 mL/min/1.73 sq m ESTIMATED GFR IS NOT ACCURATE CREATININE CLEARANCE IN PREDICTING GLOMERULAR FILTRATION RATE. ESTIMATED GFR IS NOT APPLICABLE FOR DIALYSIS PATIENTS. [employer] ID - [id number] 12:15:00* Test Item Value Reference Range Interpretation Comments Phosphorus (test code = 2777-1) 3.0 mg/dL 2.3-4.7 ALICIA (test code = ALICIA) [employer] ID - DB Lab Interpretation (test code = 97516-2) Normal [facility] [id number] 12:15:00* Test Item Value Reference Range Interpretation Comments PHOSPHORUS (BEAKER) (test code = 604) 3.0 mg/dL 2.3-4.7 [employer] ID - [id number] 12:15:00* Test Item Value Reference Range Interpretation Comments MAGNESIUM (BEAKER) (test code = 627) 1.8 mg/dL 1.6-2.6 [employer] ID - [id number] 12:15:00* Test Item Value Reference Range Interpretation Comments LIPASE (BEAKER) (test code = 749) 8 U/L 8-78 [employer] ID - DBLactic acid, [id number] 12:09:00* Test Item Value Reference Range Interpretation Comments Lactate, Venous (test code = 2872) 1.32 mmol/L 0.5-2.2 ALICIA (test code = ALICIA) [employer] ID - DB Lab Interpretation (test code = 01147-2) [facility] [id number] 12:09:00* Test Item Value Reference Range Interpretation Comments LACTATE BLOOD VENOUS (2) (BEAKER) (test code = 2872) 1.32 mmol/L 0 .50-2.20 [employer] ID - DBURINALYSIS W/ REFLEX URINE [id number] 11:58:00* Test Item Value Reference Range Interpretation Comments COLOR (BEAKER) (test code = 470) Yellow CLARITY (BEAKER) (test code = 469) Hazy SPECIFIC GRAVITY UA (BEAKER) (test code = 468) 1.019 1.001-1 .035 PH UA (BEAKER) (test code = 467) 7.0 5.0-8.0 PROTEIN UA (BEAKER) (test code = 464) Negative Negative GLUCOSE UA (BEAKER) (test code = 365) Negative Negative KETONES UA (BEAKER) (test code = 371) Negative Negative BILIRUBIN UA (BEAKER) (test code = 462) Negative Negative BLOOD UA (BEAKER) (test code = 461) Negative Negative NITRITE UA (BEAKER) (test code = 465) Negative Negative LEUKOCYTE ESTERASE UA (BEAKER) (test code = 466) Trace Negat wiliam A UROBILINOGEN UA (BEAKER) (test code = 463) 0.2 mg/dL 0.2-1.0 RBC UA (BEAKER) (test code = 519) 2 /HPF WBC UA (BEAKER) (test code = 520) 4 /HPF BACTERIA (BEAKER) (test code = 517) Occasional MUCUS (BEAKER) (test code = 1574) Rare SQUAMOUS EPITHELIAL (BEAKER) (test code = 516) 14 /HPF SOURCE(BEAKER) (test code = 2795) [employer] ID - [auto][employer] ID - techPREGNANCY SCREEN, [id number] 11:52:00 * Test Item Value Reference Range Interpretation Comments TEST URINE (BEAKER) (test code = 583) Negative Transferrin [id number] 12:35:50* Test Item Value Reference Range Interpretation Comments Transferrin (test code = 3034-6) 358 mg/dL 200-360 [facility] MethodistECG 12 [id number] 16:35:34* Test Item Value Reference Range Interpretation Comments Ventricular rate (test code = 253) 86 Atrial rate (test code = 255) 86 [place] interval (test code = 266) 180 QRSD interval (test code = 260) 90 QT interval (test code = 264) 366 QTC interval (test code = 265) 437 P axis 1 (test code = 267) 2 QRS axis 1 (test code = 268) 38 T wave axis (test code = 270) 46 EKG impression (test code = 273) Normal sinus rhythm-N ormal ECG-In automated comparison with ECG of 31-MAR-2019 04:56,-No significant change was found- [facility] MethodistXR Chest 1 [id number] 08:50:47Hm Interface, Radiology Results Incoming - 10/02/2019 8:53 AM CDTEXAMINATION: XR CHEST 1 PORTABLECLINICAL HISTORY: sobCOMPARISON: 05/02/2018IMPRESSION:Heart size is normal. There are reticular opacities within the right lung base. These findings may reflect atelectasis or possibly early pneumonia. Follow-up is advised. There is no consolidation in the left lung. There is no significant pleural effusion or pneumothorax. Osseous structures are intact.[id number] MethodistCreatine kinase, total (CPK)2019-10-02 08:04:10* Test Item Value Reference Range Interpretation Comments Creatine kinase (test code = 2157-6) 113 U/L 26-192 Holden HinduismUrine drugs of abuse [id number] 07:00:40* Test Item Value Reference Range Interpretation Comments Amphetamine screen, urine (test code = 3349-8) Negative Barbiturate screen, urine (test code = 3377-9) Negative Benzodiazepine screen, urine (test code = 3390-2) Positive A Cocaine screen, urine (test code = 3397-7) Negative Methadone metabolite (EDDP), urine (test code = 96296-0) Negative Opiates screen, urine (test code = 3879-4) Positive A Oxycodone screen, urine (test code = 46379-4) Negative Phencyclidine screen, urine (test code = 3936-2) Negative Tricyclic screen, urine (test code = 89900-4) Negative Cannabinoid screen, urine (test code = 3427-2) Positive A Drug screen minimum concentration of detectabilityAmphetamines 1000 ng/mLBarbiturates 200 ng/mLBenzodiazepines 300 ng/mLCocaine 300 ng/mLMethadone 300 ng/mLOpiates 300 ng/mLOxycodone 300 ng/mLPhencyclidine 25 ng/mLCannabinoids 50 ng/mLTricyclics 1000 ng/mLResults are from screening tests and should only be used for medical evaluation. Drug testing for legal purposes requires definitive (or confirmatory) testing methods, which are available upon request. Contact the laboratory if definitive testing is required. Lab Interpretation (test code = 13333-9) Abnormal [facility]XR Pelvis 3+ [id number] 00:45:42Hm Interface, Radiology Results - 10/02/2019 12:48 AM CDTEXAMINATION: XR PELVIS 3 VWCLINICAL HISTORY: fracture on CTCOMPARISON: CT abdomen/pelvis dated 10/01/2019IMPRESSION:Acute fracture of the left iliac crest is identified, better seen and detailed on CT dated 10/01/2019.Visualized joint spaces are anatomic .Contrast opacifies the ureters and bladder.[facility]-AB37ZJBSSugsdvtBaptist [facility] COMPREHENSIVE METABOLIC [id number] 04:14:00* Test Item Value Reference Range Interpretation Comments TOTAL PROTEIN (BEAKER) (test code = 770) 6.5 gm/dL 6.0-8.3 Specimen slightly hemolyzed ALBUMIN (BEAKER) (test code = 1145) 3.6 g/dL 3.5-5.0 Specimen slightly hemolyzed ALKALINE PHOSPHATASE (BEAKER) (test code = 346) 93 U/L 40-150 BILIRUBIN TOTAL (BEAKER) (test code = 377) 0.1 mg/dL 0.2-1.2 L Specimen slightly hemolyzed SODIUM (BEAKER) (test code = 381) 139 meq/L 136-145 POTASSIUM (BEAKER) (test code = 379) 3.9 meq/L 3.5-5.1 Specimen slightly hemolyzed CHLORIDE (BEAKER) (test code = 382) 109 meq/L 98-107 H CO2 (BEAKER) (test code = 355) 25 meq/L 22-29 BLOOD UREA NITROGEN (BEAKER) (test code = 354) 10 mg/dL 7-21 CREATININE (BEAKER) (test code = 358) 0.62 mg/dL 0.57-1.25 Specimen slightly hemolyzed GLUCOSE RANDOM (BEAKER) (test code = 652) 109 mg/dL 70-105 H CALCIUM (BEAKER) (test code = 697) 8.6 mg/dL 8.4-10.2 AST (SGOT) (BEAKER) (test code = 353) 19 U/L 5-34 Specimen slightly hemolyzed ALT (SGPT) (BEAKER) (test code = 347) 18 U/L 6-55 Specimen slightly hemolyzed EGFR (BEAKER) (test code = 1092) 112 mL/min/1.73 sq m ESTIMATED GFR IS NOT ACCURATE CREATININE CLEARANCE IN PREDICTING GLOMERULAR FILTRATION RATE. ESTIMATED GFR IS NOT APPLICABLE FOR DIALYSIS PATIENTS. [employer] ID - EDASICBC W/PLT COUNT & AUTO [id number] 02:35:00* Test Item Value Reference Range Interpretation Comments WHITE BLOOD CELL COUNT (BEAKER) (test code = 775) 7.6 K/ L 3.5- 10.5 RED BLOOD CELL COUNT (BEAKER) (test code = 761) 3.41 M/ L 3.93-5 .22 L HEMOGLOBIN (BEAKER) (test code = 410) 9.0 GM/DL 11.2-15.7 L HEMATOCRIT (BEAKER) (test code = 411) 29.5 % 34.1-44.9 L MEAN CORPUSCULAR VOLUME (BEAKER) (test code = 753) 86.5 fL 79. 4-94.8 MEAN CORPUSCULAR HEMOGLOBIN (BEAKER) (test code = 751) 26.4 pg 25.6-32.2 MEAN CORPUSCULAR HEMOGLOBIN CONC (BEAKER) (test code = 752) 30.5 GM/DL 32.2-35.5 L RED CELL DISTRIBUTION WIDTH (BEAKER) (test code = 412) 19.5 % 11.7-14.4 H PLATELET COUNT (BEAKER) (test code = 756) 339 K/CU MM 150-450 MEAN PLATELET VOLUME (BEAKER) (test code = 754) 10.6 fL 9.4-12 .3 NUCLEATED RED BLOOD CELLS (BEAKER) (test code = 413) 0 /100 WBC 0 -0 NEUTROPHILS RELATIVE PERCENT (BEAKER) (test code = 429) 70 % LYMPHOCYTES RELATIVE PERCENT (BEAKER) (test code = 430) 19 % MONOCYTES RELATIVE PERCENT (BEAKER) (test code = 431) 5 % EOSINOPHILS RELATIVE PERCENT (BEAKER) (test code = 432) 6 % BASOPHILS RELATIVE PERCENT (BEAKER) (test code = 437) 0 % NEUTROPHILS ABSOLUTE COUNT (BEAKER) (test code = 670) 5.31 K/ L 1.56-6.13 LYMPHOCYTES ABSOLUTE COUNT (BEAKER) (test code = 414) 1.41 K/ L 1.18-3.74 MONOCYTES ABSOLUTE COUNT (BEAKER) (test code = 415) 0.40 K/ L 0. 24-0.36 H EOSINOPHILS ABSOLUTE COUNT (BEAKER) (test code = 416) 0.43 K/ L 0.04-0.36 H BASOPHILS ABSOLUTE COUNT (BEAKER) (test code = 417) 0.02 K/ L 0. 01-0.08 IMMATURE GRANULOCYTES-RELATIVE PERCENT (BEAKER) (test code = 2801) 0 % 0-1 CT ABD/PEL WO [id number]-[id number] 18:49:00 [place] [address] Patient Name: HOLLEY HODGES MR #: [id number] : 1990 Age/Sex: 29/F Req #: [id number] Adm Physician: Ordered by: LENNY RAMACHANDRAN MD Report #: [id number] Location: [facility] Room/Bed: Procedure: [id number] HOPD/CT ABD/PEL WO CONTRAST-HOPD Exam Date: Exam Time: REPORT STATUS: Signed EXAM: CT Abdo men and Pelvis without contrast INDICATION: Abdominal Pain COMPARISON : None. TECHNIQUE: Abdomen and pelvis were scanned utilizing a multidetector h elical scanner from the lung base to the pubic symphysis without administratio n of IV contrast. Coronal and sagittal reformations were obtained. Lack of IV contrast limits sensitivity for evaluation of visceral and vascular structures . IV CONTRAST: None. ORAL CONTRAST: None. COMPLIC ATIONS: None RADIATION DOSE: Total DLP: 1176 mGy*cm Estimated effective dose: (DLP x 0.015 x size factor) mSv CTDIvol has been reviewe d. It is below the limits set by the Radiation Protocol Committee (RPC). FINDINGS: LINES and TUBES: None. LOWER THORAX: Minimal dependent atelect asis. HEPATOBILIARY: No evidence of focal lesion. No biliary ductal dilatio n. GALLBLADDER: Status post cholecystectomy. SPLEEN: No splenomegaly . PANCREAS: No focal masses or ductal dilatation. ADRENALS: No adre nal nodules KIDNEYS/URETERS: Kidneys enhance symmetrically. No evidence of hydronephrosis, solid mass, or stone. GI TRACT: No evidence of wall thi ckening or distension. Radiopaque densities within the small and large bowel, likely pills. The appendix is not identified, and there may be clips in the ri ght lower quadrant, suggestive of appendectomy. PELVIC ORGANS/BLADDER: Unre markable. LYMPH NODES: No lymphadenopathy. VESSELS: Unremarkable. PERITONEUM / RETROPERITONEUM: No free air or fluid. BONES AND SOFT TISSUES : There is a fracture of the left iliac crest laterally, with approximately 1. 2 cm of maximal displacement. There is adjacent superficial edema and a 4.7 cm fluid attenuation collection. Superficially, there may be a tiny laceration. CONCLUSION: Acute, displaced fracture of the left iliac crest. Overlying fluid attenuation collection, which may represent subacute hematoma or edema. Possible overlying laceration. Recommend clinical correlation. Signed by: Dr. Martha Barrera MD on 09/23/2019 6:57 PM Dictated By: MARTHA BARRERA MD Elec tronically Signed By: MARTHA BARRERA MD on 09/23/191856 Transcribed By: QUENTIN on 09/23/191856 COPY TO: LENNY RAMACHANDRAN MD CHEST 2 VIEWS 2019-09-23 18:34:00 [place] [address] Patient Name: HOLLEY HODGES MR #: [id number] : 1990 Age/Sex: 29/F Req #: [id number] Adm Physician: Ordered by: LENNY RAMACHANDRAN MD Report #: [id number] Location: [facility] Room/Bed: Procedure: [id number] DX/CHEST 2 VIEWS Exam Date: Exam Time: REPORT STATUS: Signed EXAMINATION: CHEST 2 VIEWS INDICATION: cough COMPARISON: None FINDINGS: TUBES an d LINES: None. LUNGS: Lungs are well inflated. There is no evidence of pneumonia or pulmonary edema. PLEURA: No pleural effusion or pneumothora x. HEART AND MEDIASTINUM: The cardiomediastinal silhouette is unremarkabl e. BONES AND SOFT TISSUES: No acute osseous lesion. Soft tissues are unremarkable. UPPER ABDOMEN: No free air under the diaphragm. Right upper quadrant surgical clips. IMPRESSION: No acute thoracic abnormality. Signed by: Dr. Martha Barrera MD on 09/23/2019 6:35 PM Dictated By: PATTIE BARRERA MD 34 Transcribed By: QUENTIN on 09/23/191834 COPY TO: LENNY RAMACHANDRAN MD SHOULDER 2+VW LT -[id number] 18:26:00 [place] [address] Patient Name: HOLLEY HODGES MR #: [id number] : 1990 Age/Sex: 29/F Req #: [id number] Adm Physician: Ordered by: LENNY RAMACHANDRAN MD Report #: [id number] Location: [facility] Room/Bed: Procedure: [id number] HOPD/DARRELL ULDER 2+VW LT -HOPD Exam Date: Exam Time: REPORT STATUS: Signed EXAMINATION: SHOU LDER 2+VW LT -HOPD INDICATION: sz headache fall COMPARISON: Non e FINDINGS/IMPRESSION: No evidence of acute fracture, dislocation, o r soft tissue abnormality. Signed by: Dr. Martha Barrera MD on 09/23/2019 6:28 PM Dictated By: MARTHA BARRERA MD 27 Transcribed By: QUENTIN on 09/23/191827 COPY TO: LENNY ARRIOLA MD CT BRAIN PN-[id number] 18:05:00 [place] [address] Patient Name: HOLLEY HODGES MR #: [id number] : 1990 Age/Sex: 29/F Req #: [id number] Adm Physician: Ordered by: LENNY RAMACHANDRAN MD Report #: [id number] Location: [facility] Room/Bed: Procedure: [id number] HOPD/CT BRAIN WO-HOPD Exam Date: Exam Time: REPORT STATUS: Signed CT BRAIN WO-HOPD HI STORY: Headache, fall COMPARISON: None. TECHNIQUE: Noncontrast axial scans were obtained from skull base to the vertex. Coronal and sagittal kalin nstructions obtained from the axial data. One or more of the following dose r eduction techniques were used: Automated exposure control, adjustment of the m A and/or kV according to patient size, and/or utilization of iterative reconst ruction technique. DISCUSSION: Scalp/Skull: Unremarkable. Brain sulc i: Appropriate for patient's age. Ventricles: Normal in size and configuration . No hydrocephalus. Extra-axial spaces: No masses or fluid collections. Parenchyma: There is an incidental subcentimeter pineal cyst. Otherwis e, no mass, hemorrhage, or large vascular territory acute infarct. Dural si nuses: No abnormal densities. Sellar/Suprasellar region: Intact. Skull base : Intact. Incidental findings: Right maxillary sinus opacification is partiall y imaged. The sphenoid and frontal sinuses are hypoplastic. IMPRESSION: No acute intracranial abnormalities. Signed by: Dr. Yoni jeffrey M.D. on 09/23/2019 6:11 PM Dictated By: YONI VARGAS MD Electronic ally Signed By: YONI VARGAS MD on 09/23/191810 Transcribed By: QUENTIN on 09/23/191810 COPY TO: LENNY RAMACHANDRAN MD Herpes virus antibody, [id number] 14:28:00* Test Item Value Reference Range Interpretation Comments Herpes Virus IGM (test code = 96483-5) Negative ALICIA (test code = ALICIA) HSV 1 IgM Screen: NegativeHS V 2 IgM Screen: NegativePerformed by [facility] HospitalHERPES VIRUS ANTIBODY, [id number] 14:28:00* Test Item Value Reference Range Interpretation Comments HERPES VIRUS IGM (BEAKER) (test code = 1808) Negative HSV 1 IgM Screen: NegativeHSV 2 IgM Screen: NegativePerformed by [facility] csCOMPREHENSIVE METABOLIC [id number] 05:57:00* Test Item Value Reference Range Interpretation Comments TOTAL PROTEIN (BEAKER) (test code = 770) 6.9 gm/dL 6.0-8.3 ALBUMIN (BEAKER) (test code = 1145) 3.8 g/dL 3.5-5.0 ALKALINE PHOSPHATASE (BEAKER) (test code = 346) 133 U/L 40-150 BILIRUBIN TOTAL (BEAKER) (test code = 377) 0.2 mg/dL 0.2-1.2 SODIUM (BEAKER) (test code = 381) 137 meq/L 136-145 POTASSIUM (BEAKER) (test code = 379) 4.3 meq/L 3.5-5.1 CHLORIDE (BEAKER) (test code = 382) 105 meq/L 98-107 CO2 (BEAKER) (test code = 355) 27 meq/L 22-29 BLOOD UREA NITROGEN (BEAKER) (test code = 354) 8 mg/dL 7-21 CREATININE (BEAKER) (test code = 358) 0.67 mg/dL 0.57-1.25 GLUCOSE RANDOM (BEAKER) (test code = 652) 78 mg/dL 70-105 CALCIUM (BEAKER) (test code = 697) 9.1 mg/dL 8.4-10.2 AST (SGOT) (BEAKER) (test code = 353) 20 U/L 5-34 ALT (SGPT) (BEAKER) (test code = 347) 72 U/L 6-55 H EGFR (BEAKER) (test code = 1092) 103 mL/min/1.73 sq m ESTIMATED GFR IS NOT ACCURATE CREATININE CLEARANCE IN PREDICTING GLOMERULAR FILTRATION RATE. ESTIMATED GFR IS NOT APPLICABLE FOR DIALYSIS PATIENTS. [employer] ID - LASARS-COV2/RT-PCR ([facility])2019-09-07 10:22:00* Test Item Value Reference Range Interpretation Comments SARS-COV2/RT-PCR (test code = 5588868) Negative Not Detected, N egative SARS-COV-2 PERFORMING LAB (test code = 9440331) [facility] Negative result for this test determines that SARS-CoV-2 RNA was not present in the specimen above the Limit of Detection (LOD). However, Negative results do n ot preclude SARS-CoV-2 infection and should not be used as the sole basis for tr eatment or patient management decisions. Negative results must be combined with clinical observations, patient history, and epidemiological information. A false negative result may occur if a specimen is improperly collected, transported or handled. A false negative result should be considered if patient's recent expo sures or clinical presentation indicate that COVID-19 (SARS-CoV-2) is likely and diagnostic tests for other causes of illness are negative. Re-testing should b e considered in cases of suspected false negatives.The limit of detection for is assay is 800 copies/mL.This SARS CoV-2 test is a real-time RT-PCR test intend ed for the qualitative detection of nucleic acid from SARS-CoV-2 in a nasopharyn geal swab specimen collected from individuals suspected of [facility].This test has not been Food and Drug Administration (FDA) clear ed or approved. This is a modified version of an approved Emergency Use Authori zation (EUA) and is in the process of review by the FDA. Once authorized by [facility] FDA, the issued EUA will be effective until the declaration that circumstances exist justifying the authorization of the emergency use of in vitro diagnostic tests for detection and/or diagnosis of COVID-19 is terminated under Section 564 (b)(2) of the Act or the EUA is revoked under Section 564(g) of the Act.Fact She et for Healthcare Providers:https://www.[employer].com/sites/default/files/product/d ocuments/Ytbi_Syswu_CB_Cqmdyopva_Wwhs_LYPX-WjS-2.pdfFact Sheet for Healthcare Pa kelechi:https://www.[employer].com/sites/default/files/product/documents/Fact_Sheet_P unpgonm_Stkd_KNJZ-YyW-8.pdfPerforming Laboratory:[facility] r6[facility] [address], [place] [address]CNKL-ZILWGCOQWKKAO AB, REFLEX TO TITER 2019-09-07 07:20:00* Test Item Value Reference Range Interpretation Comments SCAN RESULT (test code = 1158434) Anti-Mitochondrial Ab, reflex to [id number] 07:20:00Scan ResultQUEST DIAGNOSTIC INCORPORATEDEast Los Angeles Doctors HospitalCOMPREHENSIVE METABOLIC [id number] 06:12:00* Test Item Value Reference Range Interpretation Comments TOTAL PROTEIN (BEAKER) (test code = 770) 7.9 gm/dL 6.0-8.3 ALBUMIN (BEAKER) (test code = 1145) 4.2 g/dL 3.5-5.0 ALKALINE PHOSPHATASE (BEAKER) (test code = 346) 168 U/L 40-150 H BILIRUBIN TOTAL (BEAKER) (test code = 377) 0.5 mg/dL 0.2-1.2 SODIUM (BEAKER) (test code = 381) 135 meq/L 136-145 L POTASSIUM (BEAKER) (test code = 379) 4.1 meq/L 3.5-5.1 CHLORIDE (BEAKER) (test code = 382) 101 meq/L 98-107 CO2 (BEAKER) (test code = 355) 22 meq/L 22-29 BLOOD UREA NITROGEN (BEAKER) (test code = 354) 11 mg/dL 7-21 CREATININE (BEAKER) (test code = 358) 0.76 mg/dL 0.57-1.25 GLUCOSE RANDOM (BEAKER) (test code = 652) 83 mg/dL 70-105 CALCIUM (BEAKER) (test code = 697) 9.4 mg/dL 8.4-10.2 AST (SGOT) (BEAKER) (test code = 353) 25 U/L 5-34 ALT (SGPT) (BEAKER) (test code = 347) 114 U/L 6-55 H EGFR (BEAKER) (test code = 1092) 89 mL/min/1.73 sq m ESTIMATED GFR IS NOT ACCURATE CREATININE CLEARANCE IN PREDICTING GLOMERULAR FILTRATION RATE. ESTIMATED GFR IS NOT APPLICABLE FOR DIALYSIS PATIENTS. [employer] ID - BSActin (Smooth Muscle) Antibody, [id number] 22:43:00* Test Item Value Reference Range Interpretation Comments Anti-Smooth Muscle Ab (test code = 7911637) <20 See Note: U Reference Range:<20 NEGATIVE> OR = 20 POSITIVE Antibodies recognizing actin are the main componentof smooth muscle antibodies associated withautoimmune liver disease. Actin antibodies arefound in approximately 75% of patients withautoimmune hepatitis (AIH) type 1, lttdgocveajwq76% of patients with autoimmune cholangitis,approximately 30% of patients with primary biliarycirrhosis, and approximately 2% of healthy people.High values are closely correlated with AIH type 1. ALICIA (test code = ALICIA) Performing Lab [facility] [address] [address] Nico Puente MD, PhD, MARIOLA [facility] Doctors HospitalCeruloplasmin2020-07-08 15:15:00* Test Item Value Reference Range Interpretation Comments Ceruloplasmin (test code = 8839682) 31 mg/dL 18-53 ALICIA (test code = ALICIA) Performing Lab *SUREK[facility], [address] [place] [id number] Ramon Araya MD, PhD [facility] HospitalANESTHESIA PERIPHERAL [id number] 13:43:37 Norma Burger Jr., MD - 09/06/2019 1:43 PM CDTPeripheral BlockPatient location during procedure: PACUStart time: 09/06/2019 1:15 PMEnd time: 09/06/2019 1: 20 PM Procedure Indication: procedure for pain, at surgeon's request and post-op pain managementPreanesthetic ChecklistCompleted: patient identified, pre-op gary luation, timeout performed, IV checked, risks and benefits discussed, monitors a nd equipment checked, anesthesia consent given, prep site dry prior to draping a nd maximum sterile barriers were used: cap, mask, sterile gown, sterile gloves, and large sterile sheetStaffingAnesthesiologist: Norma Burger Jr., DAVIDE repPrep: chlorhexidine gluconate and isopropyl alcoholProcedures: sterile gloves , surgical mask, surgical hat, sterile technique and prep and sterile drape appl iedPeripheral Nerve BlockPatient position: supinePatient monitoring: EKG, HR, BP and NrX7Artsepoupc: rightBlock type: supraclavicularInjection technique: cathet erultrasound guided - in plane, prescan was completed prior to procedure and nee dle tip was visualized throughout the entire procedureultrasound image savedBloc k Dose: ropivicaine and catheterInfiltration strength: 0.35 %Dose: 20 mLNeedleNe edle type: over the needle catheterNeedle gauge: 18 GNeedle length: 75mm.Needle Localization: US guidedHydrodissection? yesCatheter tunneledDressing: Occlusive dressing applied in sterile fashion and Dermabond applied at the catheter inser tion siteAssessmentInjection assessment: incremental injection and negative aspi ration for heme Pain scale pre-procedure: 0Pain scale post-procedure: 0LOC: Anjali mookie with meaningful contactsupplemental oxygen used.no evidence of intravascular injection and no heart rate changeno paresthesiapatient had no immediate compli cations and patient tolerated the procedure wellEast Los Angeles Doctors HospitalFL, FLUORO, NON-SPECIFIC, UP TO 1 [id number] 13:11:13Reason for exam:->intra op Fluoroscopic unit utilized for a procedure performed in the OR. No interpretati on was requested. Refer to the operative report for findings. Refer to PACS fo r patient radiation dose information.FL fluoro non-specific up to 1 hour 2019-09-06 13:00:00Interface, External Ris In - 09/06/2019 1:11 PM CDTFluoroscopic unit utilized for a procedure performed in the OR. No interpretation was requested. Refer to the operative report for findings. Refer to PACS for patient radiation dose information.[facility] Doctors HospitalHerpes virus antibody, [id number] 12:50:00* Test Item Value Reference Range Interpretation Comments HSV1 IgG (test code = 3424) <0.2 <0.9 Al HSV2 IgG (test code = 3425) <0.2 <0.9 Al ALICIA (test code = ALICIA) Herpes Simplex Virus 1 IgG R esult Interpretation: <0.9 Al Normal 0.9-1.0 Al Equivocal >/= 1.1 Al Positive Herpes Simplex Virus 2 IgG Result Interpretation <0.9 Al Normal 0.9-1.0 Al Equivocal >/= 1.1 Al Positive Lab Interpretation (test code = 23752-5) Normal [facility] HospitalHSV 1 AND 2 [id number] 12:50:00* Test Item Value Reference Range Interpretation Comments HERPES SIMPLEX VIRUS-1 IGG (BEAKER) (test code = 3424) < Al <0.9 HERPES SIMPLES VIRUS-2 IGG (BEAKER) (test code = 3425) < Al <0.9 Herpes Simplex Virus 1 IgG Result Interpretation: <0.9 Al Normal 0.9-1.0 Al Equivocal >/= 1.1 Al PositiveHerpes Simplex Virus 2 IgG Result Interpretation <0.9 Al Normal 0.9-1.0 Al Equivocal >/= 1.1 Al Positive EBV VIRAL [id number] 11:42:00* Test Item Value Reference Range Interpretation Comments EBV Viral Load (test code = 2559) Negative or below th e linear range of the assay (<500 IU /mL) <500 - >5,000,000 IU/mL ALICIA (test code = ALICIA) This assay was performed by real-time PCR for the detection of the Jt-Watson virus (EBV) gene EBNA-1. The test is composed of (1) DNA extraction from patient specimen, and (2) real-time PCR amplification and detection with FQFO-8-bwjzurxk primers and probes. A well-conserved region of the EBNA-1 gene is targeted, along with an internal control sequence used to confirm PCR amplification. Asymptomatic carriers and viral genetic variation, among other factors, can affect the accuracy of nucleic acid testing; therefore, results should be interpreted in light of clinical data. This test was develop ed and its performance characteristics determined by the [facility] Pathology Department, Section of Molecular Pathology. It has not been cleared or approved by the U.S. Food and Drug Administration (FDA), since FDA approval is not required for clinical use of the test. Validation was done as required by The Clinical Laboratory Improvement Amendments of 1988. [facility] CenterEBV VIRAL [id number] 11:42:00* Test Item Value Reference Range Interpretation Comments EBV VIRAL LOAD - NEGATIVE (BEAKER) (test code = 2559) Negative or below the linear range of the assay (<500 IU /mL) <500 - >5,000,000 IU/mL This assay was performed by real-time PCR for the detection of the Jt-Watson virus (EBV) gene EBNA-1. The test is composed of (1) DNA extraction from patien t specimen, and (2) real-time PCR amplification and detection with GJTF-7-ddoxrd ic primers and probes. A well-conserved region of the EBNA-1 gene is targeted, a long with an internal control sequence used to confirm PCR amplification. Asympt omatic carriers and viral genetic variation, among other factors, can affect the accuracy of nucleic acid testing; therefore, results should be interpreted in l ight of clinical data.This test was developed and its performance characteristic s determined by the [facility] Pathology Department, Section of [facility] Pathology. It has not been cleared or approved by the U.S. Food and Blue g Administration (FDA), since FDA approval is not required for clinical use of t he test. Validation was done as required by The Clinical Laboratory Improvement Amendments of 1988.Mitochondrial Ab [id number] 09:28:00* Test Item Value Reference Range Interpretation Comments Anti-Mitochond Abs (test code = 7840239) NEGATIVE NEGATIVE This test was developed and its analytical performance characteristics havebeen determined by [facility] [employer].It has not been cleared or approved by FDA. This assay has been validatedpursuant to the CLIA regulations and is used for clinical purposes. ALICIA (test code = ALICIA) Performing Lab [facility] [address] [place] [address] Nico Puente MD, PhD, MARIOLA [facility] Hospital[facility]ochond[facility] Ab [id number] 09:28:00* Test Item Value Reference Range Interpretation Comments Mitochondrial Ab Titer (test code = 2592267) TNP <1:20 Test Not Performed. Screening test Negative or Not Detected. Titer notperformed. ALICIA (test code = ALICIA) Performing Lab [facility] [address] [place] [address] Nico Puente MD, PhD, MARIOLA [facility] HospitalPHOSPHORUS2020-07-08 06:06:00* Test Item Value Reference Range Interpretation Comments PHOSPHORUS (BEAKER) (test code = 604) 4.4 mg/dL 2.3-4.7 [employer] ID - JOHN [id number] 06:06:00* Test Item Value Reference Range Interpretation Comments MAGNESIUM (BEAKER) (test code = 627) 1.9 mg/dL 1.6-2.6 [employer] ID Keenan LOPEZ LCOMPREHENSIVE METABOLIC [id number] 06:06:00* Test Item Value Reference Range Interpretation Comments TOTAL PROTEIN (BEAKER) (test code = 770) 7.5 gm/dL 6.0-8.3 ALBUMIN (BEAKER) (test code = 1145) 4.0 g/dL 3.5-5.0 ALKALINE PHOSPHATASE (BEAKER) (test code = 346) 172 U/L 40-150 H BILIRUBIN TOTAL (BEAKER) (test code = 377) 0.3 mg/dL 0.2-1.2 SODIUM (BEAKER) (test code = 381) 136 meq/L 136-145 POTASSIUM (BEAKER) (test code = 379) 4.1 meq/L 3.5-5.1 CHLORIDE (BEAKER) (test code = 382) 99 meq/L 98-107 CO2 (BEAKER) (test code = 355) 29 meq/L 22-29 BLOOD UREA NITROGEN (BEAKER) (test code = 354) 13 mg/dL 7-21 CREATININE (BEAKER) (test code = 358) 0.75 mg/dL 0.57-1.25 GLUCOSE RANDOM (BEAKER) (test code = 652) 76 mg/dL 70-105 CALCIUM (BEAKER) (test code = 697) 9.4 mg/dL 8.4-10.2 AST (SGOT) (BEAKER) (test code = 353) 25 U/L 5-34 ALT (SGPT) (BEAKER) (test code = 347) 155 U/L 6-55 H EGFR (BEAKER) (test code = 1092) 90 mL/min/1.73 sq m ESTIMATED GFR IS NOT ACCURATE CREATININE CLEARANCE IN PREDICTING GLOMERULAR FILTRATION RATE. ESTIMATED GFR IS NOT APPLICABLE FOR DIALYSIS PATIENTS. [employer] ID - JOHN LCBC (Hemogram only)2019-09-06 05:26:00* Test Item Value Reference Range Interpretation Comments WBC (test code = 6690-2) 6.4 3.5- 10.5 K/L RBC (test code = 789-8) 4.08 3.93- 5.22 M/L MCHC (test code = 786-4) 30.3 32.2- 35.5 GM/DL L Hematocrit (test code = 4544-3) 34.6 % 34.1-44.9 MCV (test code = 787-2) 84.8 fL 79.4-94.8 MCH (test code = 785-6) 25.7 pg 25.6-32.2 RDW (test code = 788-0) 19.4 % 11.7-14.4 H Platelets (test code = 777-3) 353 150- 450 K/CU MM MPV (test code = 22101-0) 10.6 fL 9.4-12.3 nRBC (test code = 413) 0 0- 0 /100 WBC Lab Interpretation (test code = 39084-5) Abnormal [facility] (HEMOGRAM ONLY)2019-09-06 05:26:00* Test Item Value Reference Range Interpretation Comments WHITE BLOOD CELL COUNT (BEAKER) (test code = 775) 6.4 K/ L 3.5- 10.5 RED BLOOD CELL COUNT (BEAKER) (test code = 761) 4.08 M/ L 3.93-5 .22 HEMOGLOBIN (BEAKER) (test code = 410) 10.5 GM/DL 11.2-15.7 L HEMATOCRIT (BEAKER) (test code = 411) 34.6 % 34.1-44.9 MEAN CORPUSCULAR VOLUME (BEAKER) (test code = 753) 84.8 fL 79. 4-94.8 MEAN CORPUSCULAR HEMOGLOBIN (BEAKER) (test code = 751) 25.7 pg 25.6-32.2 MEAN CORPUSCULAR HEMOGLOBIN CONC (BEAKER) (test code = 752) 30.3 GM/DL 32.2-35.5 L RED CELL DISTRIBUTION WIDTH (BEAKER) (test code = 412) 19.4 % 11.7-14.4 H PLATELET COUNT (BEAKER) (test code = 756) 353 K/CU MM 150-450 MEAN PLATELET VOLUME (BEAKER) (test code = 754) 10.6 fL 9.4-12 .3 NUCLEATED RED BLOOD CELLS (BEAKER) (test code = 413) 0 /100 WBC 0 -0 CMV PCR, [id number] 02:01:00* Test Item Value Reference Range Interpretation Comments CMV DNA Viral Load (test code = 2558) Negative or belo w the linear range of the assay (<375 copies/mL) <375- >375,000 copies/mL ALICIA (test code = ALICIA) Cytomegalovirus (CMV) infect ion can cause significant disease in immunosuppressed patients. However, it is common for CMV to manifest as a limited infection which is of no clinical significance in immunosuppressed patients or in healthy individuals. Viral load measurements are helpful to identify clinical CMV infection and to guide the pre-emptive management of antiviral therapy. For treatment of CMV infection due to reactivation in transplant recipients, a threshold between 4,000 and 5,000 copies/mL is suggested. For treatment of primary CMV infection, a lower threshold can be used. CMV infection may also be monitored using weekly serial measurements. Serial measurements of CMV DNA viral load can be evaluated by identifying a 10- fold change, as well as assessing the CMV DNA viral load and the clinical context for each patient. The plasma CMV DNA viral load was detected using quantitative polymerase chain reaction and fluorescent monitoring of a specific hybridized probe. Genetic variation and other factors can affect the accuracy of nucleic acid testing. Therefore, the results should be interpreted in light of clinical data. A negative result may not exclude the presence of CMV disease. T his test was developed and its performance characteristics determined by the [facility] Pathology Department, Section of Molecular Pathology. It has not been cleared or approved by the U.S. Food and Drug Administration (FDA), since FDA approval is not required for clinical use of the test. Validation was done as required by The Clinical Laboratory Improvement Amendments of 1988. [facility] HospitalCMV PCR, [id number] 02:01:00* Test Item Value Reference Range Interpretation Comments CMV VIRAL LOAD - NEGATIVE (BEAKER) (test code = 2558) Negative or below the linear range of the assay (<375 copies/mL) <375- >375,000 copies/mL Cytomegalovirus (CMV) infection can cause significant disease in immunosuppresse d patients. However, it is common for CMV to manifest as a limited infection whi ch is of no clinical significance in immunosuppressed patients or in healthy ind ividuals.Viral load measurements are helpful to identify clinical CMV infection and to guide the pre-emptive management of antiviral therapy. For treatment of CMV infection due to reactivation in transplant recipients, a threshold between 4,000 and 5,000 copies/mL is suggested. For treatment of primary CMV infection, a lower threshold can be used.CMV infection may also be monitored using weekly serial measurements. Serial measurements of CMV DNA viral load can be evaluated by identifying a 10-fold change, as well as assessing the CMV DNA viral load and the clinical context for each patient.The plasma CMV DNA viral load was detecte d using quantitative polymerase chain reaction and fluorescent monitoring of a s pecific hybridized probe. Genetic variation and other factors can affect the acc uracy of nucleic acid testing. Therefore, the results should be interpreted in l ight of clinical data. A negative result may not exclude the presence of CMV dis ease.This test was developed and its performance characteristics determined by igor hayward [facility] Pathology Department, Section of Molecular Patholog y. It has not been cleared or approved by the U.S. Food and Drug Administration (FDA), since FDA approval is not required for clinical use of the test. Validati on was done as required by The Clinical Laboratory Improvement Amendments of 198 8.[id number] 19:49:00* Test Item Value Reference Range Interpretation Comments PHOSPHORUS (BEAKER) (test code = 604) 4.4 mg/dL 2.3-4.7 [employer] ID - [id number] 19:49:00* Test Item Value Reference Range Interpretation Comments MAGNESIUM (BEAKER) (test code = 627) 1.8 mg/dL 1.6-2.6 [employer] ID - BSCOMPREHENSIVE METABOLIC [id number] 19:49:00* Test Item Value Reference Range Interpretation Comments TOTAL PROTEIN (BEAKER) (test code = 770) 8.0 gm/dL 6.0-8.3 ALBUMIN (BEAKER) (test code = 1145) 4.3 g/dL 3.5-5.0 ALKALINE PHOSPHATASE (BEAKER) (test code = 346) 193 U/L 40-150 H BILIRUBIN TOTAL (BEAKER) (test code = 377) 0.2 mg/dL 0.2-1.2 SODIUM (BEAKER) (test code = 381) 137 meq/L 136-145 POTASSIUM (BEAKER) (test code = 379) 4.3 meq/L 3.5-5.1 CHLORIDE (BEAKER) (test code = 382) 98 meq/L 98-107 CO2 (BEAKER) (test code = 355) 36 meq/L 22-29 H BLOOD UREA NITROGEN (BEAKER) (test code = 354) 12 mg/dL 7-21 CREATININE (BEAKER) (test code = 358) 0.72 mg/dL 0.57-1.25 GLUCOSE RANDOM (BEAKER) (test code = 652) 65 mg/dL 70-105 L CALCIUM (BEAKER) (test code = 697) 9.7 mg/dL 8.4-10.2 AST (SGOT) (BEAKER) (test code = 353) 31 U/L 5-34 ALT (SGPT) (BEAKER) (test code = 347) 200 U/L 6-55 H EGFR (BEAKER) (test code = 1092) 94 mL/min/1.73 sq m ESTIMATED GFR IS NOT ACCURATE CREATININE CLEARANCE IN PREDICTING GLOMERULAR FILTRATION RATE. ESTIMATED GFR IS NOT APPLICABLE FOR DIALYSIS PATIENTS. [employer] ID - BSCBC (HEMOGRAM ONLY)2019-09-05 19:29:00* Test Item Value Reference Range Interpretation Comments WHITE BLOOD CELL COUNT (BEAKER) (test code = 775) 5.7 K/ L 3.5- 10.5 RED BLOOD CELL COUNT (BEAKER) (test code = 761) 4.20 M/ L 3.93-5 .22 HEMOGLOBIN (BEAKER) (test code = 410) 10.6 GM/DL 11.2-15.7 L HEMATOCRIT (BEAKER) (test code = 411) 35.5 % 34.1-44.9 MEAN CORPUSCULAR VOLUME (BEAKER) (test code = 753) 84.5 fL 79. 4-94.8 MEAN CORPUSCULAR HEMOGLOBIN (BEAKER) (test code = 751) 25.2 pg 25.6-32.2 L MEAN CORPUSCULAR HEMOGLOBIN CONC (BEAKER) (test code = 752) 29.9 GM/DL 32.2-35.5 L RED CELL DISTRIBUTION WIDTH (BEAKER) (test code = 412) 19.2 % 11.7-14.4 H PLATELET COUNT (BEAKER) (test code = 756) 382 K/CU MM 150-450 MEAN PLATELET VOLUME (BEAKER) (test code = 754) 10.4 fL 9.4-12 .3 NUCLEATED RED BLOOD CELLS (BEAKER) (test code = 413) 0 /100 WBC 0 -0 IR non-tunneled dialysis catheter [id number] 17:23:00Interface, External Ris In - 09/05/2019 5:38 PM CDTFINAL REPORT PROCEDURE: Central Venous Catheter Placement CLINICAL HISTORY: poor access QUALITY DIRECTOR: Zora Garza DO, JD ANESTHESIA: Local lidocaine. DEVICE: Arrow triple-lumen 7 Malian 16 cm catheter DOSE INFORMATION - Ka,r: [...] to the holding area/floor in stable condition. IMPRESSION:Successful placement of non-tunneled right IJ central venous catheter. Catheter is ready for immediate use. Signed: Zora Garza MDReport Verified Date/Time: 09/05/2019 17:23:04 Reading Location: [place] [address] Angio Body Reading Room [facility], NON-TUNNELED DIALYSIS CATH, [id number] 17:23:00 Reason for exam:->poor accessFINAL REPORT PROCEDURE: Central Venous Catheter Placement CLINICAL HISTORY: poor access QUALITY DIRECTOR: Zora Garza DO, JD ANESTHESIA: Local lidocaine. DEVICE: Arrow triple-lumen 7 Malian 16 cm catheter DOSE INFORMATION - Ka,r: 2 mGy Estimated Blood Loss: <5 mL Samples: None. PROCEDURE: The risks, benefits, and alternatives to the proc edure were discussed with the patient. All questions were answered and written informed consent was obtained. A universal timeout was performed prior to starti ng the procedure. For Prevention of Central Venous Catheter (CVC)-Related Blood stream Infections all elements of maximal sterile barrier technique, hand hygien e, skin preparation and sterile techniques were followed. Ultrasound of the [facility] t internal jugular vein demonstrated a patent and compressible vessel. An ultras ound image of the vessel was obtained. Lidocaine was used for cutaneous anesthes ia. Under ultrasound guidance the vessel was accessed with a 19-gauge needle and through this a 0.035 inch 3J wire was positioned in the inferior vena cava. Und er fluoroscopic guidance, over the wire the catheter was placed with the tip ove rlying the SVC/right atrium. The venous catheter ports were accessed and demonst rated excellent blood return and flushed easily. The catheter was secured to ski n using suture, and a sterile dressing was placed. The patient tolerated the pro cedure well and was returned to the holding area/floor in stable condition. IMPR ESSION:Successful placement of non-tunneled right IJ central venous catheter. Ca theter is ready for immediate use. Signed: Zora Garza MDReport Verified Date/ Time: 09/05/2019 17:23:04 Reading Location: [place] [address] Angio Body Reading Room Anti-Nuclear Antibody (SHAUNNA)2019-09-05 13:27:00* Test Item Value Reference Range Interpretation Comments SHAUNNA (test code = 09221-1) Negative Negative ALICIA (test code = ALICIA) Test performed by IFA method .Test performed by IFA method. Lab Interpretation (test code = 82641-4) Normal [facility]NUCLEAR ANTIBODY (SHAUNNA)2019-09-05 13:27:00* Test Item Value Reference Range Interpretation Comments ANTI-NUCLEAR ANTIBODY (SHAUNNA) (BEAKER) (test code = 418) Negative Negative Test performed by IFA method.Test performed by IFA method.[id number] 08:51:00* Test Item Value Reference Range Interpretation Comments Ferritin (test code = 2276-4) 6.49 ng/mL 5-275 ALICIA (test code = ALICIA) [employer] ID - NTP Lab Interpretation (test code = 63868-2) Normal [facility] Hospital[facility]ERRITIN2020-07-06 08:51:00* Test Item Value Reference Range Interpretation Comments FERRITIN (BEAKER) (test code = 361) 6.49 ng/mL 5.00-275.00 [employer] ID - NTPAlpha fetoprotein (AFP), tumor [id number] 06:53:00* Test Item Value Reference Range Interpretation Comments Alpha-Fetoprotein (test code = 1834-1) 3.0 ng/mL <10.0 ALICIA (test code = ALICIA) [employer] ID - PIAYA L Lab Interpretation (test code = 72082-3) Normal [facility] HospitalALPHA FETOPROTEIN (AFP), TUMOR [id number] 06:53:00* Test Item Value Reference Range Interpretation Comments ALPHA-FETOPROTEIN (BEAKER) (test code = 1094) 3.0 ng/mL <10.0 [employer] ID - PIAYA [id number] 06:38:00* Test Item Value Reference Range Interpretation Comments PHOSPHORUS (BEAKER) (test code = 604) 4.5 mg/dL 2.3-4.7 [employer] ID - PIAYA [id number] 06:38:00* Test Item Value Reference Range Interpretation Comments MAGNESIUM (BEAKER) (test code = 627) 1.7 mg/dL 1.6-2.6 [employer] ID - PIAYA LCOMPREHENSIVE METABOLIC [id number] 06:38:00* Test Item Value Reference Range Interpretation Comments TOTAL PROTEIN (BEAKER) (test code = 770) 7.4 gm/dL 6.0-8.3 ALBUMIN (BEAKER) (test code = 1145) 4.0 g/dL 3.5-5.0 ALKALINE PHOSPHATASE (BEAKER) (test code = 346) 190 U/L 40-150 H BILIRUBIN TOTAL (BEAKER) (test code = 377) 0.4 mg/dL 0.2-1.2 SODIUM (BEAKER) (test code = 381) 137 meq/L 136-145 POTASSIUM (BEAKER) (test code = 379) 4.2 meq/L 3.5-5.1 CHLORIDE (BEAKER) (test code = 382) 103 meq/L 98-107 CO2 (BEAKER) (test code = 355) 26 meq/L 22-29 BLOOD UREA NITROGEN (BEAKER) (test code = 354) 9 mg/dL 7-21 CREATININE (BEAKER) (test code = 358) 0.69 mg/dL 0.57-1.25 GLUCOSE RANDOM (BEAKER) (test code = 652) 81 mg/dL 70-105 CALCIUM (BEAKER) (test code = 697) 9.4 mg/dL 8.4-10.2 AST (SGOT) (BEAKER) (test code = 353) 68 U/L 5-34 H ALT (SGPT) (BEAKER) (test code = 347) 311 U/L 6-55 H EGFR (BEAKER) (test code = 1092) 99 mL/min/1.73 sq m ESTIMATED GFR IS NOT ACCURATE CREATININE CLEARANCE IN PREDICTING GLOMERULAR FILTRATION RATE. ESTIMATED GFR IS NOT APPLICABLE FOR DIALYSIS PATIENTS. [employer] ID - PIAYA LCBC (HEMOGRAM ONLY)2019-09-04 05:37:00* Test Item Value Reference Range Interpretation Comments WHITE BLOOD CELL COUNT (BEAKER) (test code = 775) 6.1 K/ L 3.5- 10.5 RED BLOOD CELL COUNT (BEAKER) (test code = 761) 3.97 M/ L 3.93-5 .22 HEMOGLOBIN (BEAKER) (test code = 410) 10.2 GM/DL 11.2-15.7 L HEMATOCRIT (BEAKER) (test code = 411) 33.5 % 34.1-44.9 L MEAN CORPUSCULAR VOLUME (BEAKER) (test code = 753) 84.4 fL 79. 4-94.8 MEAN CORPUSCULAR HEMOGLOBIN (BEAKER) (test code = 751) 25.7 pg 25.6-32.2 MEAN CORPUSCULAR HEMOGLOBIN CONC (BEAKER) (test code = 752) 30.4 GM/DL 32.2-35.5 L RED CELL DISTRIBUTION WIDTH (BEAKER) (test code = 412) 19.1 % 11.7-14.4 H PLATELET COUNT (BEAKER) (test code = 756) 275 K/CU MM 150-450 MEAN PLATELET VOLUME (BEAKER) (test code = 754) 11.9 fL 9.4-12 .3 NUCLEATED RED BLOOD CELLS (BEAKER) (test code = 413) 0 /100 WBC 0 -0 Hepatitis A antibody, [id number] 18:56:00* Test Item Value Reference Range Interpretation Comments Hep A IgG (test code = 11974-4) Reactive Nonreactive A ALICIA (test code = ALICIA) [employer] ID - DB Lab Interpretation (test code = 06765-1) Abnormal [facility] HospitalHEPATITIS A ANTIBODY, [id number] 18:56:00* Test Item Value Reference Range Interpretation Comments HEPATITIS A IGG ANTIBODY (BEAKER) (test code = 2797) Reactive N onreactive [employer] ID - DBHepatitis B surface [id number] 18:55:00* Test Item Value Reference Range Interpretation Comments Hep B S Ab (test code = 97437-8) 663.5 <8.0 mIU/mL H ALICIA (test code = ALICIA) [employer] ID - DB Lab Interpretation (test code = 49666-8) Abnormal [facility] HospitalHepatitis B core antibody, [id number] 18:55:00 * Test Item Value Reference Range Interpretation Comments Hep B Core Total Ab (test code = 98022-1) Nonreactive Nonreactive ALICIA (test code = ALICIA) [employer] ID - DB Lab Interpretation (test code = 17723-9) Normal [facility] HospitalHEPAT[facility]IS B SURFACE [id number] 18:55:00* Test Item Value Reference Range Interpretation Comments HEPATITIS B SURFACE ANTIBODY (BEAKER) (test code = 647) 663.5 mIU/m L <8.0 H [employer] ID - DBHEPATITIS B CORE ANTIBODY, [id number] 18:55:00* Test Item Value Reference Range Interpretation Comments HEPATITIS B CORE TOTAL ANTIBODY (BEAKER) (test code = 497) N onreactive Nonreactive [employer] ID - [id number]-9-[id number] 18:34:00* Test Item Value Reference Range Interpretation Comments A-1 Antitrypsin (test code = 1825-9) 188.10 mg/dL 90-200 Specimen moderately hemolyzed ALICIA (test code = ALICIA) [employer] ID - DB Lab Interpretation (test code = 13277-3) Normal [facility], TIBC, % sat. (without ferritin)2019-09-03 18:34:00* Test Item Value Reference Range Interpretation Comments Iron (test code = 2498-4) 33.0 ug/dL 40-160 L TIBC (test code = 2500-7) 495 ug/dL 250-450 H Iron % Saturation (test code = 2502-3) 7 % 20-55 L ALICIA (test code = ALICIA) [employer] ID - DB Lab Interpretation (test code = 65084-0) Abnormal [facility], TIBC, % SAT. (WITHOUT FERRITIN)2019-09-03 18:34:00* Test Item Value Reference Range Interpretation Comments IRON (BEAKER) (test code = 547) 33.0 ug/dL 40.0-160.0 L TOTAL IRON BINDING CAPACITY (BEAKER) (test code = 769) 495 ug/dL 250-450 H IRON % SATURATION (2) (BEAKER) (test code = 2590) 7 % 20-5 5 L [employer] ID - [id number] 18:34:00* Test Item Value Reference Range Interpretation Comments ALPHA-1 ANTITRYPSIN (BEAKER) (test code = 502) 188.10 mg/dL 90.00-2 00.00 Specimen moderately hemolyzed [employer] ID - DBMR, ABDOMEN, [id number] 17:18:00MRI liver protocolDeos the patient have an implanted electronic device?->NoFINAL REPORT TECHNIQUE: MRI of the abdomen WITHOUT [...] bile is normal in diameter at 0.6 cmSPLEEN: No splenomegaly.PANCREAS: No focal masses or ductal dilatation. ADRENALS: No adrenal nodules.KIDNEYS/URETERS: No hydronephrosis or solid mass lesions. A nonenhancing left lower pole renal lesion is most likely a simple renal cyst which measures 0.6 cm. No routine follow-up imaging is recommended. PERITONEUM/RETROPERITONEUM: No free fluid.LYMPH NODES: No lymphadenopathy.VESSEL S: The main portal vein is patent and measures 1.1 cm in diameter. GI TRACT: No distention or wall thickening. BONES AND SOFT TISSUES: Unremarkable. IMPRESSION : No explanation on this MRI for the abnormal liver function tests. Signed: Hola Herrera Verified Date/Time: 09/03/2019 17:18:51 Reading Location: [facility] [address] Body Reading Room abdomen without & with IV [id number] 17:18:00 Interface, External Ris In - 09/03/2019 5:22 PM CDTFINAL REPORT PATIENT ID: [id number] TECHNIQUE: MRI of the abdomen WITHOUT and WITH intravenous contrast. IND ICATION: Abnormal liver enzymes. COMPARISON: Ultrasound from 09/02/2019. CT from . FINDINGS: LOWER THORAX: Unremarkable. LIVER: No hepatic signal abnorm ality. There are several (between five and 10) scattered hepatic cysts which lisseth sure up to 0.4 cm. BILIARY: Prior cholecystectomy. No biliary ductal dilatation or filling defect. The common bile is normal in diameter at 0.6 cmSPLEEN: No spl enomegaly.PANCREAS: No focal masses or ductal dilatation. ADRENALS: No adrenal n odules.KIDNEYS/URETERS: No hydronephrosis or solid mass lesions. A nonenhancing left lower pole renal lesion is most likely a simple renal cyst which measures 0 .6 cm. No routine follow-up imaging is recommended. PERITONEUM/RETROPERITONEUM: No free fluid.LYMPH NODES: No lymphadenopathy.VESSELS: The main portal vein is p atent and measures 1.1 cm in diameter. GI TRACT: No distention or wall thickenin g. BONES AND SOFT TISSUES: Unremarkable. IMPRESSION: No explanation on this MRI for the abnormal liver function tests. Signed: Hola Herrera Verified Carl e/Time: 09/03/2019 17:18:51 Reading Location: [facility] B1 C013Y CT Body [facility] 03:23:00* Test Item Value Reference Range Interpretation Comments MAGNESIUM (BEAKER) (test code = 627) 1.8 mg/dL 1.6-2.6 Specimen slightly hemolyzed [employer] ID - JOHN [id number] 03:23:00* Test Item Value Reference Range Interpretation Comments PHOSPHORUS (BEAKER) (test code = 604) 4.1 mg/dL 2.3-4.7 Specimen slightly hemolyzed [employer] ID - JOHN LCOMPREHENSIVE METABOLIC [id number] 03:23:00* Test Item Value Reference Range Interpretation Comments TOTAL PROTEIN (BEAKER) (test code = 770) 7.6 gm/dL 6.0-8.3 Specimen slightly hemolyzed ALBUMIN (BEAKER) (test code = 1145) 3.9 g/dL 3.5-5.0 Specimen slightly hemolyzed ALKALINE PHOSPHATASE (BEAKER) (test code = 346) 220 U/L 40-150 H BILIRUBIN TOTAL (BEAKER) (test code = 377) 0.6 mg/dL 0.2-1.2 Specimen slightly hemolyzed SODIUM (BEAKER) (test code = 381) 135 meq/L 136-145 L POTASSIUM (BEAKER) (test code = 379) 4.7 meq/L 3.5-5.1 Specimen slightly hemolyzed CHLORIDE (BEAKER) (test code = 382) 103 meq/L 98-107 CO2 (BEAKER) (test code = 355) 23 meq/L 22-29 BLOOD UREA NITROGEN (BEAKER) (test code = 354) 5 mg/dL 7-21 L CREATININE (BEAKER) (test code = 358) 0.68 mg/dL 0.57-1.25 Specimen slightly hemolyzed GLUCOSE RANDOM (BEAKER) (test code = 652) 85 mg/dL 70-105 CALCIUM (BEAKER) (test code = 697) 9.2 mg/dL 8.4-10.2 AST (SGOT) (BEAKER) (test code = 353) 160 U/L 5-34 H Specimen slightly hemolyzed ALT (SGPT) (BEAKER) (test code = 347) 410 U/L 6-55 H Specimen slightly hemolyzed EGFR (BEAKER) (test code = 1092) 101 mL/min/1.73 sq m ESTIMATED GFR IS NOT ACCURATE CREATININE CLEARANCE IN PREDICTING GLOMERULAR FILTRATION RATE. ESTIMATED GFR IS NOT APPLICABLE FOR DIALYSIS PATIENTS. [employer] ID Keenan LOPEZ LCBC (HEMOGRAM ONLY)2019-09-03 02:47:00* Test Item Value Reference Range Interpretation Comments WHITE BLOOD CELL COUNT (BEAKER) (test code = 775) 5.2 K/ L 3.5- 10.5 RED BLOOD CELL COUNT (BEAKER) (test code = 761) 3.78 M/ L 3.93-5 .22 L HEMOGLOBIN (BEAKER) (test code = 410) 9.9 GM/DL 11.2-15.7 L HEMATOCRIT (BEAKER) (test code = 411) 32.5 % 34.1-44.9 L MEAN CORPUSCULAR VOLUME (BEAKER) (test code = 753) 86.0 fL 79. 4-94.8 MEAN CORPUSCULAR HEMOGLOBIN (BEAKER) (test code = 751) 26.2 pg 25.6-32.2 MEAN CORPUSCULAR HEMOGLOBIN CONC (BEAKER) (test code = 752) 30.5 GM/DL 32.2-35.5 L RED CELL DISTRIBUTION WIDTH (BEAKER) (test code = 412) 19.2 % 11.7-14.4 H PLATELET COUNT (BEAKER) (test code = 756) 305 K/CU MM 150-450 MEAN PLATELET VOLUME (BEAKER) (test code = 754) 11.4 fL 9.4-12 .3 NUCLEATED RED BLOOD CELLS (BEAKER) (test code = 413) 0 /100 WBC 0 -0 Hepatitis panel, [id number] 12:50:00* Test Item Value Reference Range Interpretation Comments Hep A IgM (test code = 86784-5) Nonreactive Nonreactive Hep B C IgM (test code = 03420-1) Nonreactive Nonreactive Hepatitis C Ab (test code = 32507-1) Nonreactive Nonreactive HBsAg Screen (test code = 5195-3) Nonreactive Nonreactive ALICIA (test code = ALICIA) [employer] ID Keenan LOPEZ Fermin r ID - AMMY Reinaldo ID - MAR C Lab Interpretation (test code = 71406-9) [facility] [id number] 12:50:00* Test Item Value Reference Range Interpretation Comments HEPATITIS A IGM ANTIBODY (BEAKER) (test code = 498) Nonreactive No nreactive HEPATITIS B CORE IGM ANTIBODY (BEAKER) (test code = 645) Non reactive Nonreactive HEPATITIS C ANTIBODY (BEAKER) (test code = 367) Nonreactive Nonrea ctive HEPATITIS B SURFACE ANTIGEN (2) (BEAKER) (test code = 2585) Nonreactive Nonreactive [employer] ID - JOHN LOperator ID - AMMY COperator ID - AMMY [id number] 05:11:00* Test Item Value Reference Range Interpretation Comments PHOSPHORUS (BEAKER) (test code = 604) 4.2 mg/dL 2.3-4.7 [employer] ID - JOHN [id number] 05:11:00* Test Item Value Reference Range Interpretation Comments MAGNESIUM (BEAKER) (test code = 627) 1.8 mg/dL 1.6-2.6 [employer] ID - JOHN LBASIC METABOLIC [id number] 05:11:00* Test Item Value Reference Range Interpretation Comments SODIUM (BEAKER) (test code = 381) 136 meq/L 136-145 POTASSIUM (BEAKER) (test code = 379) 3.6 meq/L 3.5-5.1 CHLORIDE (BEAKER) (test code = 382) 103 meq/L 98-107 CO2 (BEAKER) (test code = 355) 25 meq/L 22-29 BLOOD UREA NITROGEN (BEAKER) (test code = 354) 7 mg/dL 7-21 CREATININE (BEAKER) (test code = 358) 0.64 mg/dL 0.57-1.25 GLUCOSE RANDOM (BEAKER) (test code = 652) 81 mg/dL 70-105 CALCIUM (BEAKER) (test code = 697) 8.8 mg/dL 8.4-10.2 EGFR (BEAKER) (test code = 1092) 108 mL/min/1.73 sq m ESTIMATED GFR IS NOT ACCURATE CREATININE CLEARANCE IN PREDICTING GLOMERULAR FILTRATION RATE. ESTIMATED GFR IS NOT APPLICABLE FOR DIALYSIS PATIENTS. [employer] ID - JOHN LHEPATIC FUNCTION [id number] 05:11:00* Test Item Value Reference Range Interpretation Comments TOTAL PROTEIN (BEAKER) (test code = 770) 6.8 gm/dL 6.0-8.3 ALBUMIN (BEAKER) (test code = 1145) 3.6 g/dL 3.5-5.0 BILIRUBIN TOTAL (BEAKER) (test code = 377) 0.7 mg/dL 0.2-1.2 BILIRUBIN DIRECT (BEAKER) (test code = 706) 0.4 mg/dL 0.1-0.5 ALKALINE PHOSPHATASE (BEAKER) (test code = 346) 205 U/L 40-150 H AST (SGOT) (BEAKER) (test code = 353) 326 U/L 5-34 H ALT (SGPT) (BEAKER) (test code = 347) 390 U/L 6-55 H [employer] ID - JOHN RODAS/S, ABDOMINAL, [id number] 04:49:00Abdomen limited area? Add comment if clarification is needed.->LiverReason for exam:->elevated LFTsFINAL REPORT History: Elevated LFTs Abdominal ultrasound dated [...] to explain the patient's elevated LFTs. Signed: Kendall Reynolds MDReport Verified Date/Time: 09/02/2019 04:49:51 abdomen [id number] 04:49:00Interface, External Ris In - 09/02/2019 4:52 AM CDTFINAL REPORT History: Elevated LFTs Abdominal ultrasound dated [...] to explain the patient's elevated LFTs. Signed: Kendall Reynolds MDReport Verified Date/Time: 09/02/2019 04:49:51 [facility] (HEMOGRAM ONLY)2019-09-02 03:45:00* Test Item Value Reference Range Interpretation Comments WHITE BLOOD CELL COUNT (BEAKER) (test code = 775) 3.4 K/ L 3.5- 10.5 L RED BLOOD CELL COUNT (BEAKER) (test code = 761) 3.62 M/ L 3.93-5 .22 L HEMOGLOBIN (BEAKER) (test code = 410) 9.0 GM/DL 11.2-15.7 L HEMATOCRIT (BEAKER) (test code = 411) 30.5 % 34.1-44.9 L MEAN CORPUSCULAR VOLUME (BEAKER) (test code = 753) 84.3 fL 79. 4-94.8 MEAN CORPUSCULAR HEMOGLOBIN (BEAKER) (test code = 751) 24.9 pg 25.6-32.2 L MEAN CORPUSCULAR HEMOGLOBIN CONC (BEAKER) (test code = 752) 29.5 GM/DL 32.2-35.5 L RED CELL DISTRIBUTION WIDTH (BEAKER) (test code = 412) 19.2 % 11.7-14.4 H PLATELET COUNT (BEAKER) (test code = 756) 286 K/CU MM 150-450 MEAN PLATELET VOLUME (BEAKER) (test code = 754) 10.7 fL 9.4-12 .3 NUCLEATED RED BLOOD CELLS (BEAKER) (test code = 413) 0 /100 WBC 0 -0 SARS-COV2/RT-PCR ([facility])2019-09-01 23:54:00* Test Item Value Reference Range Interpretation Comments SARS-COV2/RT-PCR (test code = 8896972) Negative Not Detected, N egative SARS-COV-2 PERFORMING LAB (test code = 4258836) [facility] Negative result for this test determines that SARS-CoV-2 RNA was not present in the specimen above the Limit of Detection (LOD). However, Negative results do n ot preclude SARS-CoV-2 infection and should not be used as the sole basis for tr eatment or patient management decisions. Negative results must be combined with clinical observations, patient history, and epidemiological information. A false negative result may occur if a specimen is improperly collected, transported or handled. A false negative result should be considered if patient's recent expo sures or clinical presentation indicate that COVID-19 (SARS-CoV-2) is likely and diagnostic tests for other causes of illness are negative. Re-testing should b e considered in cases of suspected false negatives.The limit of detection for is assay is 800 copies/mL.This SARS CoV-2 test is a real-time RT-PCR test intend ed for the qualitative detection of nucleic acid from SARS-CoV-2 in a nasopharyn geal swab specimen collected from individuals suspected of [facility].This test has not been Food and Drug Administration (FDA) clear ed or approved. This is a modified version of an approved Emergency Use Authori zation (EUA) and is in the process of review by the FDA. Once authorized by [facility] FDA, the issued EUA will be effective until the declaration that circumstances exist justifying the authorization of the emergency use of in vitro diagnostic tests for detection and/or diagnosis of COVID-19 is terminated under Section 564 (b)(2) of the Act or the EUA is revoked under Section 564(g) of the Act.Fact She et for Healthcare Providers:https://www.[employer].com/sites/default/files/product/d ocuments/Btsb_Nwdvz_FL_Vopsbsvjv_Ksga_HWWY-NqV-7.pdfFact Sheet for Healthcare Pa kelechi:https://www.[employer].com/sites/default/files/product/documents/Fact_Sheet_P jtfhevj_Xuim_ZNMW-NoV-5.pdfPerforming Laboratory:[facility] r[address] [place] [address].[place], [place] [address]OTZITNXEZUXDE METABOLIC [id number] 13:14:00* Test Item Value Reference Range Interpretation Comments TOTAL PROTEIN (BEAKER) (test code = 770) 7.5 gm/dL 6.0-8.3 ALBUMIN (BEAKER) (test code = 1145) 4.1 g/dL 3.5-5.0 ALKALINE PHOSPHATASE (BEAKER) (test code = 346) 165 U/L 40-150 H BILIRUBIN TOTAL (BEAKER) (test code = 377) 0.7 mg/dL 0.2-1.2 SODIUM (BEAKER) (test code = 381) 140 meq/L 136-145 POTASSIUM (BEAKER) (test code = 379) 3.7 meq/L 3.5-5.1 CHLORIDE (BEAKER) (test code = 382) 106 meq/L 98-107 CO2 (BEAKER) (test code = 355) 26 meq/L 22-29 BLOOD UREA NITROGEN (BEAKER) (test code = 354) 6 mg/dL 7-21 L CREATININE (BEAKER) (test code = 358) 0.63 mg/dL 0.57-1.25 GLUCOSE RANDOM (BEAKER) (test code = 652) 89 mg/dL 70-105 CALCIUM (BEAKER) (test code = 697) 9.2 mg/dL 8.4-10.2 AST (SGOT) (BEAKER) (test code = 353) 161 U/L 5-34 H ALT (SGPT) (BEAKER) (test code = 347) 149 U/L 6-55 H EGFR (BEAKER) (test code = 1092) 110 mL/min/1.73 sq m ESTIMATED GFR IS NOT ACCURATE CREATININE CLEARANCE IN PREDICTING GLOMERULAR FILTRATION RATE. ESTIMATED GFR IS NOT APPLICABLE FOR DIALYSIS PATIENTS. [employer] ID - NTPProthrombin time/[id number] 13:09:00* Test Item Value Reference Range Interpretation Comments Protime (test code = 5902-2) 11.8 11.9- 14.2 seconds L INR (test code = 6301-6) 0.9 <=5.9 ALICIA (test code = ALICIA) Effective 07/27/2018: PT Refe rence Range ChangeNew: 11.9- 14.2 Previous: 11.7-14.7 RECOMMENDED COUMADIN/WARFARIN INR THERAPY RANGESSTANDARD DOSE: 2.0-3.0 Includes: PROPHYLAXIS for venous thrombosis, sys temic embolization; TREATMENT for venous thrombosis and/or pulmonary embolus.HIGH RISK: Target INR is 2.5-3.5 for patients wiht mechanical heart valves. Lab Interpretation (test code = 20805-0) Abnormal [facility] CenterPROTHR[facility]/[id number] 13:09:00* Test Item Value Reference Range Interpretation Comments PROTIME (BEAKER) (test code = 759) 11.8 seconds 11.9-14.2 L INR (BEAKER) (test code = 370) 0.9 <=5.9 Effective 07/27/2018: PT Reference Range ChangeNew: 11.9-14.2 Previous: 11.7-14. 7RECOMMENDED COUMADIN/WARFARIN INR THERAPY RANGESSTANDARD DOSE: 2.0-3.0 Include s: PROPHYLAXIS for venous thrombosis, systemic embolization; TREATMENT for venou s thrombosis and/or pulmonary embolus.HIGH RISK: Target INR is 2.5-3.5 for patie nts wiht mechanical heart valves.CBC (HEMOGRAM ONLY)2019-09-01 12:56:00* Test Item Value Reference Range Interpretation Comments WHITE BLOOD CELL COUNT (BEAKER) (test code = 775) 9.0 K/ L 3.5- 10.5 RED BLOOD CELL COUNT (BEAKER) (test code = 761) 3.84 M/ L 3.93-5 .22 L HEMOGLOBIN (BEAKER) (test code = 410) 9.7 GM/DL 11.2-15.7 L HEMATOCRIT (BEAKER) (test code = 411) 31.8 % 34.1-44.9 L MEAN CORPUSCULAR VOLUME (BEAKER) (test code = 753) 82.8 fL 79. 4-94.8 MEAN CORPUSCULAR HEMOGLOBIN (BEAKER) (test code = 751) 25.3 pg 25.6-32.2 L MEAN CORPUSCULAR HEMOGLOBIN CONC (BEAKER) (test code = 752) 30.5 GM/DL 32.2-35.5 L RED CELL DISTRIBUTION WIDTH (BEAKER) (test code = 412) 19.3 % 11.7-14.4 H PLATELET COUNT (BEAKER) (test code = 756) 349 K/CU MM 150-450 MEAN PLATELET VOLUME (BEAKER) (test code = 754) 10.5 fL 9.4-12 .3 NUCLEATED RED BLOOD CELLS (BEAKER) (test code = 413) 0 /100 WBC 0 -0 RAD, WRIST, RIGHT, COMPLETE (MIN 3 VIEWS)2019-09-01 08:49:00Reason for exam:-> ARM PAIN, post opIs the patient ?->NoShould this be performed at the bedside?->NoFINAL REPORT RAD, WRIST, RIGHT, COMPLETE (MIN 3 [...] demonstrate diffuse osteopenia. Signed: JR Knox Robert MDReport Verified Date/Time: 09/01/2019 08:49:28 Reading Location: [address] Neuro Reading Room wrist complete 3 views min [id number] 08:49:00Interface, External Ris In - 09/01/2019 8:51 AM CDTFINAL REPORT RAD, WRIST, RIGHT, COMPLETE (MIN 3 [...] demonstrate diffuse osteopenia. Signed: JR Knox Robert MDReport Verified Date/Time: 09/01/2019 08:49:28 Reading Location: [facility] C0[facility] Neuro [facility] [id number] 23:45:00 [facility] [address] [address] Patient Name: HOLLEY HODGES MR #: [id number] : 1990 Age/Sex: 29/F Req #: [id number] Adm Physician: Ordered by: SHAHID VERA MD Report #: [id number] Location: [facility] Room/Bed: Procedure: [id number] HOPD/CT AB D/PEL WO CONTRAST-HOPD Exam Date: 08/29/19 Exam Time : 2246 REPORT STATUS: Signed EXA M: CT Abdomen and Pelvis WITHOUT contrast INDICATION: ABDOMINAL JO N [id number] COMPARISON: None. TECHNIQUE: Abdomen and pelvis were scanned utilizing a multidetector helical scanner from the lung base to the pu bic symphysis without administration of IV contrast. Absence of intravenous co ntrast decreases sensitivity for detection of focal lesions and vascular patho logy. Coronal and sagittal reformations were obtained. Routine protocol was pe rformed. IV CONTRAST: None ORAL CONTRAST: None C OMPLICATIONS: None RADIATION DOSE: Total DLP: 934 mGy*cm Rita mated effective dose: (DLP x 0.015 x size factor) mSv CTDIvol has been re viewed. It is below the limits set by the Radiation Protocol Committee (RPC). Dose modulation, iterative reconstruction, and/or weight based adjustment of the mA/kV was utilized to reduce the radiation dose to as low as reasonabl y achievable. FINDINGS: LINES and TUBES: None. LOWER THORAX: Unremarkable HEPATOBILIARY: No focal hepatic lesions. No biliary ducta l dilation. GALLBLADDER: No radio-opaque stones or sludge. No wall thicke meera. SPLEEN: No splenomegaly. PANCREAS: No focal masses or ductal di latation. ADRENALS: No adrenal nodules KIDNEYS/URETERS: No hydr onephrosis. No cystic or solid mass lesions. No stones. GI TRACT: No abn ormal distention, wall thickening, or evidence of bowel obstruction. Appendix is surgically absent. PELVIC ORGANS/BLADDER: The uterus is surgically abse nt. The urinary bladder is unremarkable. LYMPH NODES: No lymphadenopathy. VESSELS: Unremarkable. PERITONEUM / RETROPERITONEUM: No free air or f luid. BONES: Unremarkable. SOFT TISSUES: Tiny umbilical hernia. I MPRESSION: No acute abdominal or pelvic abnormality. Signed by: Willam Parker MD on 08/29/2019 11:49 PM Dictated By: WILLAM PARKER MD Elect ronically Signed By: WILLAM PARKER MD on 08/29/192348 Transcribed By: QUENTIN on 08/29/192348 COPY TO: SHAHID VERA MD COMPREHENSIVE METABOLIC [id number] 12:21:00* Test Item Value Reference Range Interpretation Comments TOTAL PROTEIN (BEAKER) (test code = 770) 8.2 gm/dL 6.0-8.3 ALBUMIN (BEAKER) (test code = 1145) 4.7 g/dL 3.5-5.0 ALKALINE PHOSPHATASE (BEAKER) (test code = 346) 114 U/L 40-150 BILIRUBIN TOTAL (BEAKER) (test code = 377) 0.5 mg/dL 0.2-1.2 SODIUM (BEAKER) (test code = 381) 139 meq/L 136-145 POTASSIUM (BEAKER) (test code = 379) 3.7 meq/L 3.5-5.1 CHLORIDE (BEAKER) (test code = 382) 106 meq/L 98-107 CO2 (BEAKER) (test code = 355) 22 meq/L 22-29 BLOOD UREA NITROGEN (BEAKER) (test code = 354) 9 mg/dL 7-21 CREATININE (BEAKER) (test code = 358) 0.73 mg/dL 0.57-1.25 GLUCOSE RANDOM (BEAKER) (test code = 652) 113 mg/dL 70-105 H CALCIUM (BEAKER) (test code = 697) 9.7 mg/dL 8.4-10.2 AST (SGOT) (BEAKER) (test code = 353) 17 U/L 5-34 ALT (SGPT) (BEAKER) (test code = 347) 28 U/L 6-55 EGFR (BEAKER) (test code = 1092) 93 mL/min/1.73 sq m ESTIMATED GFR IS NOT ACCURATE CREATININE CLEARANCE IN PREDICTING GLOMERULAR FILTRATION RATE. ESTIMATED GFR IS NOT APPLICABLE FOR DIALYSIS PATIENTS. [employer] ID - AMMY CCBC W/PLT COUNT & AUTO [id number] 12:07:00* Test Item Value Reference Range Interpretation Comments WHITE BLOOD CELL COUNT (BEAKER) (test code = 775) 13.0 K/ L 3.5- 10.5 H RED BLOOD CELL COUNT (BEAKER) (test code = 761) 4.09 M/ L 3.93-5 .22 HEMOGLOBIN (BEAKER) (test code = 410) 10.3 GM/DL 11.2-15.7 L HEMATOCRIT (BEAKER) (test code = 411) 34.0 % 34.1-44.9 L MEAN CORPUSCULAR VOLUME (BEAKER) (test code = 753) 83.1 fL 79. 4-94.8 MEAN CORPUSCULAR HEMOGLOBIN (BEAKER) (test code = 751) 25.2 pg 25.6-32.2 L MEAN CORPUSCULAR HEMOGLOBIN CONC (BEAKER) (test code = 752) 30.3 GM/DL 32.2-35.5 L RED CELL DISTRIBUTION WIDTH (BEAKER) (test code = 412) 20.0 % 11.7-14.4 H PLATELET COUNT (BEAKER) (test code = 756) 498 K/CU MM 150-450 H MEAN PLATELET VOLUME (BEAKER) (test code = 754) 10.4 fL 9.4-12 .3 NUCLEATED RED BLOOD CELLS (BEAKER) (test code = 413) 0 /100 WBC 0 -0 NEUTROPHILS RELATIVE PERCENT (BEAKER) (test code = 429) 78 % LYMPHOCYTES RELATIVE PERCENT (BEAKER) (test code = 430) 16 % MONOCYTES RELATIVE PERCENT (BEAKER) (test code = 431) 5 % EOSINOPHILS RELATIVE PERCENT (BEAKER) (test code = 432) 1 % BASOPHILS RELATIVE PERCENT (BEAKER) (test code = 437) 0 % NEUTROPHILS ABSOLUTE COUNT (BEAKER) (test code = 670) 10.07 K/ L 1.56-6.13 H LYMPHOCYTES ABSOLUTE COUNT (BEAKER) (test code = 414) 2.03 K/ L 1.18-3.74 MONOCYTES ABSOLUTE COUNT (BEAKER) (test code = 415) 0.66 K/ L 0. 24-0.36 H EOSINOPHILS ABSOLUTE COUNT (BEAKER) (test code = 416) 0.14 K/ L 0.04-0.36 BASOPHILS ABSOLUTE COUNT (BEAKER) (test code = 417) 0.05 K/ L 0. 01-0.08 IMMATURE GRANULOCYTES-RELATIVE PERCENT (BEAKER) (test code = 2801) 0 % 0-1 CT, [id number] 21:52:00Reason for exam:->LLQ abd pain; hx of endometriosis to the intestines that she is getitng surgery on WednesdayReason for exam:->EMESISIs the patient ?->NoPt had a TAHWhat is the patient's sedation requirement?->No SedationFINAL REPORT EXAM: CT of the abdomen and pelvis, with contrast CLINICAL HISTORY: Abdominal pain. Left lower quadrant pain. History of endometriosis to intestines. TECHNIQUE: CT of the abdomen and pelvis was performed with intravenous contrast administration. This exam was performed according to our departmental dose optimization program which includes automated exposure control, adjustment of the mA and/or kV according to patient's size and/or use of iterative reconstructive technique. COMPARISON: CT abdomen and pelvis 03/27/2019. FINDINGS: LOWER CHEST: Within normal limits.LIVER: Within normal limits.BILE DUCTS: Within normal limits.GALL BLADDER: Status post cholecystectomy.PANCREAS: Within normal limits.SPLEEN: Within normal limits.ADRENALS: Within normal limits.KIDNEYS/URETERS: Subcentimeter left renal hypodensity too small to characterize. No hydronephrosis or radiopaque stones. URINARY BLADDER: Within normal limits.RE PRODUCTIVE ORGANS: Status post hysterectomy. No adnexal mass. BOWEL/MESENTERY: P ericecal surgical sutures which may be due to prior appendectomy. Small hiatal h ernia. No bowel obstruction or abnormal wall thickening. PERITONEUM/RETROPERITON EUM: No free air, free fluid or fluid collection. VESSELS: Within normal limits. LYMPH NODES: No abdominal or pelvic lymphadenopathy.SOFT TISSUES: Within normal limits.BONES: Within normal limits. IMPRESSION: Small hiatal hernia. No bowel o bstruction, free air or fluid collections. Signed: Ian Friendterrance Dwyeruab [facility] ed Date/Time: 07/29/2019 21:52:22 ALYSIS W/ REFLEX URINE [id number] 21:07:00* Test Item Value Reference Range Interpretation Comments COLOR (BEAKER) (test code = 470) Light Yellow CLARITY (BEAKER) (test code = 469) Clear SPECIFIC GRAVITY UA (BEAKER) (test code = 468) 1.034 1.001-1 .035 PH UA (BEAKER) (test code = 467) 7.5 5.0-8.0 PROTEIN UA (BEAKER) (test code = 464) 10 mg/dL Negative A GLUCOSE UA (BEAKER) (test code = 365) 50 mg/dL Negative A KETONES UA (BEAKER) (test code = 371) Negative Negative BILIRUBIN UA (BEAKER) (test code = 462) Negative Negative BLOOD UA (BEAKER) (test code = 461) Negative Negative NITRITE UA (BEAKER) (test code = 465) Negative Negative LEUKOCYTE ESTERASE UA (BEAKER) (test code = 466) Moderate Negat wiliam A UROBILINOGEN UA (BEAKER) (test code = 463) 0.2 mg/dL 0.2-1.0 RBC UA (BEAKER) (test code = 519) 1 /HPF WBC UA (BEAKER) (test code = 520) 2 /HPF MUCUS (BEAKER) (test code = 1574) Rare SQUAMOUS EPITHELIAL (BEAKER) (test code = 516) 3 /HPF SOURCE(BEAKER) (test code = 2795) [employer] ID - [auto][employer] ID - techCBC W/PLT COUNT & AUTO DIFFERENTIAL 2019-07-29 20:13:00* Test Item Value Reference Range Interpretation Comments WHITE BLOOD CELL COUNT (BEAKER) (test code = 775) 13.3 K/ L 3.5- 10.5 H RED BLOOD CELL COUNT (BEAKER) (test code = 761) 3.59 M/ L 3.93-5 .22 L HEMOGLOBIN (BEAKER) (test code = 410) 9.1 GM/DL 11.2-15.7 L HEMATOCRIT (BEAKER) (test code = 411) 29.0 % 34.1-44.9 L MEAN CORPUSCULAR VOLUME (BEAKER) (test code = 753) 80.8 fL 79. 4-94.8 MEAN CORPUSCULAR HEMOGLOBIN (BEAKER) (test code = 751) 25.3 pg 25.6-32.2 L MEAN CORPUSCULAR HEMOGLOBIN CONC (BEAKER) (test code = 752) 31.4 GM/DL 32.2-35.5 L RED CELL DISTRIBUTION WIDTH (BEAKER) (test code = 412) 19.6 % 11.7-14.4 H PLATELET COUNT (BEAKER) (test code = 756) 367 K/CU MM 150-450 MEAN PLATELET VOLUME (BEAKER) (test code = 754) 9.8 fL 9.4-12 .3 NUCLEATED RED BLOOD CELLS (BEAKER) (test code = 413) 0 /100 WBC 0 -0 NEUTROPHILS RELATIVE PERCENT (BEAKER) (test code = 429) 93 % LYMPHOCYTES RELATIVE PERCENT (BEAKER) (test code = 430) 4 % MONOCYTES RELATIVE PERCENT (BEAKER) (test code = 431) 3 % EOSINOPHILS RELATIVE PERCENT (BEAKER) (test code = 432) 0 % BASOPHILS RELATIVE PERCENT (BEAKER) (test code = 437) 0 % NEUTROPHILS ABSOLUTE COUNT (BEAKER) (test code = 670) 12.28 K/ L 1.56-6.13 H LYMPHOCYTES ABSOLUTE COUNT (BEAKER) (test code = 414) 0.57 K/ L 1.18-3.74 L MONOCYTES ABSOLUTE COUNT (BEAKER) (test code = 415) 0.34 K/ L 0. 24-0.36 EOSINOPHILS ABSOLUTE COUNT (BEAKER) (test code = 416) 0.00 K/ L 0.04-0.36 L BASOPHILS ABSOLUTE COUNT (BEAKER) (test code = 417) 0.03 K/ L 0. 01-0.08 IMMATURE GRANULOCYTES-RELATIVE PERCENT (BEAKER) (test code = 2801) 0 % 0-1 [id number] 19:37:00* Test Item Value Reference Range Interpretation Comments LIPASE (BEAKER) (test code = 749) < U/L 8-78 L [employer] ID - DBCOMPREHENSIVE METABOLIC [id number] 19:30:00* Test Item Value Reference Range Interpretation Comments TOTAL PROTEIN (BEAKER) (test code = 770) 8.4 gm/dL 6.0-8.3 H Specimen slightly hemolyzed ALBUMIN (BEAKER) (test code = 1145) 4.6 g/dL 3.5-5.0 Specimen slightly hemolyzed ALKALINE PHOSPHATASE (BEAKER) (test code = 346) 102 U/L 40-150 BILIRUBIN TOTAL (BEAKER) (test code = 377) 0.6 mg/dL 0.2-1.2 Specimen slightly hemolyzed SODIUM (BEAKER) (test code = 381) 137 meq/L 136-145 POTASSIUM (BEAKER) (test code = 379) 3.7 meq/L 3.5-5.1 Specimen slightly hemolyzed CHLORIDE (BEAKER) (test code = 382) 107 meq/L 98-107 CO2 (BEAKER) (test code = 355) 18 meq/L 22-29 L BLOOD UREA NITROGEN (BEAKER) (test code = 354) 8 mg/dL 7-21 CREATININE (BEAKER) (test code = 358) 0.76 mg/dL 0.57-1.25 Specimen slightly hemolyzed GLUCOSE RANDOM (BEAKER) (test code = 652) 138 mg/dL 70-105 H CALCIUM (BEAKER) (test code = 697) 9.6 mg/dL 8.4-10.2 AST (SGOT) (BEAKER) (test code = 353) 19 U/L 5-34 Specimen slightly hemolyzed ALT (SGPT) (BEAKER) (test code = 347) 15 U/L 6-55 Specimen slightly hemolyzed EGFR (BEAKER) (test code = 1092) 89 mL/min/1.73 sq m ESTIMATED GFR IS NOT ACCURATE CREATININE CLEARANCE IN PREDICTING GLOMERULAR FILTRATION RATE. ESTIMATED GFR IS NOT APPLICABLE FOR DIALYSIS PATIENTS. [employer] ID - DBPIV [id number] 18:24:41Gregory Loving MD 07/29/2019 7:59 PMPIV InsertionDate/Time: 07/29/2019 7:30 PMPerformed by: Gregory Loving MDAuthorized by: Gregory Loving MD Indication: fluid administration, frequent blood draws, IV medication, pain and vascular access.Location: right upper arm. Needle gauge: 18Seldinger technique: Seldinger technique usedNumber of attempts: 1 [facility], CRITICAL CARE TRANSPORT NURSE IN OR/30 MINUTE INCREMENTS 2019-07-28 02:36:00Reason for exam:->removal of hardwarePROCEDURE PERFORMED IN THE O.R. - PLEASE REFER TO EMR. Telecommunications Technician in OR 30 minute increments 2019-07-28 02:36:00Interface, External Ris In - 07/28/2019 2:36 AM CDTPROCEDURE PERFORMED IN THE O.R. - PLEASE REFER TO EMR. [facility] W/PLT COUNT & AUTO [id number] 07:12:00* Test Item Value Reference Range Interpretation Comments WHITE BLOOD CELL COUNT (BEAKER) (test code = 775) 9.1 K/ L 3.5- 10.5 RED BLOOD CELL COUNT (BEAKER) (test code = 761) 4.03 M/ L 3.93-5 .22 HEMOGLOBIN (BEAKER) (test code = 410) 10.2 GM/DL 11.2-15.7 L HEMATOCRIT (BEAKER) (test code = 411) 32.7 % 34.1-44.9 L MEAN CORPUSCULAR VOLUME (BEAKER) (test code = 753) 81.1 fL 79. 4-94.8 MEAN CORPUSCULAR HEMOGLOBIN (BEAKER) (test code = 751) 25.3 pg 25.6-32.2 L MEAN CORPUSCULAR HEMOGLOBIN CONC (BEAKER) (test code = 752) 31.2 GM/DL 32.2-35.5 L RED CELL DISTRIBUTION WIDTH (BEAKER) (test code = 412) 20.6 % 11.7-14.4 H PLATELET COUNT (BEAKER) (test code = 756) 278 K/CU MM 150-450 MEAN PLATELET VOLUME (BEAKER) (test code = 754) 11.1 fL 9.4-12 .3 NUCLEATED RED BLOOD CELLS (BEAKER) (test code = 413) 0 /100 WBC 0 -0 NEUTROPHILS RELATIVE PERCENT (BEAKER) (test code = 429) 68 % LYMPHOCYTES RELATIVE PERCENT (BEAKER) (test code = 430) 24 % MONOCYTES RELATIVE PERCENT (BEAKER) (test code = 431) 6 % EOSINOPHILS RELATIVE PERCENT (BEAKER) (test code = 432) 1 % BASOPHILS RELATIVE PERCENT (BEAKER) (test code = 437) 0 % NEUTROPHILS ABSOLUTE COUNT (BEAKER) (test code = 670) 6.16 K/ L 1.56-6.13 H LYMPHOCYTES ABSOLUTE COUNT (BEAKER) (test code = 414) 2.22 K/ L 1.18-3.74 MONOCYTES ABSOLUTE COUNT (BEAKER) (test code = 415) 0.57 K/ L 0. 24-0.36 H EOSINOPHILS ABSOLUTE COUNT (BEAKER) (test code = 416) 0.06 K/ L 0.04-0.36 BASOPHILS ABSOLUTE COUNT (BEAKER) (test code = 417) 0.03 K/ L 0. 01-0.08 IMMATURE GRANULOCYTES-RELATIVE PERCENT (BEAKER) (test code = 2801) 0 % 0-1 URINALYSIS W/ REFLEX URINE [id number] 05:58:00* Test Item Value Reference Range Interpretation Comments COLOR (BEAKER) (test code = 470) Yellow CLARITY (BEAKER) (test code = 469) Clear SPECIFIC GRAVITY UA (BEAKER) (test code = 468) 1.021 1.001-1 .035 PH UA (BEAKER) (test code = 467) 7.5 5.0-8.0 PROTEIN UA (BEAKER) (test code = 464) 70 mg/dL Negative A GLUCOSE UA (BEAKER) (test code = 365) 300 mg/dL Negative A KETONES UA (BEAKER) (test code = 371) Negative Negative BILIRUBIN UA (BEAKER) (test code = 462) Negative Negative BLOOD UA (BEAKER) (test code = 461) Trace Negative A NITRITE UA (BEAKER) (test code = 465) Negative Negative LEUKOCYTE ESTERASE UA (BEAKER) (test code = 466) Negative Negat wiliam UROBILINOGEN UA (BEAKER) (test code = 463) 0.2 mg/dL 0.2-1.0 RBC UA (BEAKER) (test code = 519) 1 /HPF WBC UA (BEAKER) (test code = 520) < /HPF MUCUS (BEAKER) (test code = 1574) Rare SQUAMOUS EPITHELIAL (BEAKER) (test code = 516) 1 /HPF SOURCE(BEAKER) (test code = 2795) [employer] ID - [auto][employer] ID - [id number] 05:08:00* Test Item Value Reference Range Interpretation Comments PHOSPHORUS (BEAKER) (test code = 604) 3.7 mg/dL 2.3-4.7 [employer] ID - [id number] 05:08:00* Test Item Value Reference Range Interpretation Comments MAGNESIUM (BEAKER) (test code = 627) 1.5 mg/dL 1.6-2.6 L [employer] ID - DBBASIC METABOLIC [id number] 05:08:00* Test Item Value Reference Range Interpretation Comments SODIUM (BEAKER) (test code = 381) 138 meq/L 136-145 POTASSIUM (BEAKER) (test code = 379) 3.3 meq/L 3.5-5.1 L CHLORIDE (BEAKER) (test code = 382) 102 meq/L 98-107 CO2 (BEAKER) (test code = 355) 29 meq/L 22-29 BLOOD UREA NITROGEN (BEAKER) (test code = 354) 6 mg/dL 7-21 L CREATININE (BEAKER) (test code = 358) 0.76 mg/dL 0.57-1.25 GLUCOSE RANDOM (BEAKER) (test code = 652) 71 mg/dL 70-105 CALCIUM (BEAKER) (test code = 697) 10.0 mg/dL 8.4-10.2 EGFR (BEAKER) (test code = 1092) 89 mL/min/1.73 sq m ESTIMATED GFR IS NOT ACCURATE CREATININE CLEARANCE IN PREDICTING GLOMERULAR FILTRATION RATE. ESTIMATED GFR IS NOT APPLICABLE FOR DIALYSIS PATIENTS. [employer] ID - DBSARS-COV2/RT-PCR ([facility])2019-06-22 15:07:00* Test Item Value Reference Range Interpretation Comments SARS-COV2/RT-PCR (test code = 7316094) Not Detected Not Detected, N egative SARS-COV-2 PERFORMING LAB (test code = 1610466) [facility] Negative results do not preclude SARS-CoV-2 infection and should not be used as the sole basis for patient management decisions. Negative results must be combin ed with clinical observations, patient history, and epidemiological information. A false negative result may occur if a specimen is improperly collected, transp orted or handled.The limit of detection for this assay is 250 copies/mL.This DILSHAD S CoV-2 test is a rapid, real-time RT-PCR test intended for the qualitative dete ction of nucleic acid from SARS-CoV-2 in a nasopharyngeal swab specimen collecte d from individuals suspected of COVID-19 by their healthcare provider.This test has not been Food and Drug Administration (FDA) cleared or approved and has been authorized by FDA under an Emergency Use Authorization (EUA). This EUA will be effective until the declaration that circumstances exist justifying the authoriz ation of the emergency use of in vitro diagnostic tests for detection and/or megan gnosis of COVID-19 is terminated under Section 564(b)(2) of the Act or the EUA i s revoked under Section 564(g) of the Act.Fact Sheet for Healthcare Providers:ht tps://www.[employer]/Documents/Xpert%20Xpress%20SARS%20CoV-2/Fact%20Sheets/302- 3802%02XOFG-CTZ-0%20HEALTHCARE%20PROVIDERS%20FACT%20SHEET.pdfFact Sheet for Heal thcare Patients:https://www.[employer]/Documents/Xpert%20Xpress%20SARS%20CoV-2/ Fact%20Sheets/302-3801%08DVEM-DVN-9%20PATIENT%20FACT%20SHEET.pdfPerforming Labor atory:[facility], [place] [address]JUK, CHEST, 1 VIEW, NON [id number] 13:00:00Reason for exam:->EMESISShould this be performed at the bedside?->YesFINAL REPORT CLINICAL HISTORY: EMESIS TECHNIQUE: 1 view of the chest COMPARISON: 09/28/2014 IMPRESSION: There are no focal infiltrates or pleural effusions. The cardiomediastinal silhouette is within normal limits for size. The visualized bones are intact. Signed: Norma Anders MDReport Verified Date/Time: 06/22/2019 13:00:00 Reading Location: [facility] Radiology Reading Room chest 1 view portable / bedside 2019-06-22 13:00:00Interface, External Ris In - 06/22/2019 1:02 PM CDTFINAL REPORT CLINICAL HISTORY: EMESIS TECHNIQUE: 1 view of the chest COMPARISON: 09/28/2014 IMPRESSION: There are no focal infiltrates or pleural effusions. The cardiomediastinal silhouette is within normal limits for size. The visualized bones are intact. Signed: Norma Anders MDReport Verified Date/Time: 06/22/2019 13:00:00 Reading Location: [facility] 11[facility]14:00* Test Item Value Reference Range Interpretation Comments LIPASE (BEAKER) (test code = 749) 9 U/L 8-78 [employer] ID - LUBNA MBASIC METABOLIC [id number] 11:14:00* Test Item Value Reference Range Interpretation Comments SODIUM (BEAKER) (test code = 381) 137 meq/L 136-145 POTASSIUM (BEAKER) (test code = 379) 3.5 meq/L 3.5-5.1 CHLORIDE (BEAKER) (test code = 382) 107 meq/L 98-107 CO2 (BEAKER) (test code = 355) 22 meq/L 22-29 BLOOD UREA NITROGEN (BEAKER) (test code = 354) 8 mg/dL 7-21 CREATININE (BEAKER) (test code = 358) 0.69 mg/dL 0.57-1.25 GLUCOSE RANDOM (BEAKER) (test code = 652) 147 mg/dL 70-105 H CALCIUM (BEAKER) (test code = 697) 9.6 mg/dL 8.4-10.2 EGFR (BEAKER) (test code = 1092) 99 mL/min/1.73 sq m ESTIMATED GFR IS NOT ACCURATE CREATININE CLEARANCE IN PREDICTING GLOMERULAR FILTRATION RATE. ESTIMATED GFR IS NOT APPLICABLE FOR DIALYSIS PATIENTS. [employer] ID - LUBNA MCBC W/PLT COUNT & AUTO [id number] 11:00:00* Test Item Value Reference Range Interpretation Comments WHITE BLOOD CELL COUNT (BEAKER) (test code = 775) 10.2 K/ L 3.5- 10.5 RED BLOOD CELL COUNT (BEAKER) (test code = 761) 3.91 M/ L 3.93-5 .22 L HEMOGLOBIN (BEAKER) (test code = 410) 10.1 GM/DL 11.2-15.7 L HEMATOCRIT (BEAKER) (test code = 411) 31.9 % 34.1-44.9 L MEAN CORPUSCULAR VOLUME (BEAKER) (test code = 753) 81.6 fL 79. 4-94.8 MEAN CORPUSCULAR HEMOGLOBIN (BEAKER) (test code = 751) 25.8 pg 25.6-32.2 MEAN CORPUSCULAR HEMOGLOBIN CONC (BEAKER) (test code = 752) 31.7 GM/DL 32.2-35.5 L RED CELL DISTRIBUTION WIDTH (BEAKER) (test code = 412) 20.5 % 11.7-14.4 H PLATELET COUNT (BEAKER) (test code = 756) 365 K/CU MM 150-450 MEAN PLATELET VOLUME (BEAKER) (test code = 754) 9.8 fL 9.4-12 .3 NUCLEATED RED BLOOD CELLS (BEAKER) (test code = 413) 0 /100 WBC 0 -0 NEUTROPHILS RELATIVE PERCENT (BEAKER) (test code = 429) 80 % LYMPHOCYTES RELATIVE PERCENT (BEAKER) (test code = 430) 15 % MONOCYTES RELATIVE PERCENT (BEAKER) (test code = 431) 4 % EOSINOPHILS RELATIVE PERCENT (BEAKER) (test code = 432) 0 % BASOPHILS RELATIVE PERCENT (BEAKER) (test code = 437) 0 % NEUTROPHILS ABSOLUTE COUNT (BEAKER) (test code = 670) 8.18 K/ L 1.56-6.13 H LYMPHOCYTES ABSOLUTE COUNT (BEAKER) (test code = 414) 1.49 K/ L 1.18-3.74 MONOCYTES ABSOLUTE COUNT (BEAKER) (test code = 415) 0.37 K/ L 0. 24-0.36 H EOSINOPHILS ABSOLUTE COUNT (BEAKER) (test code = 416) 0.04 K/ L 0.04-0.36 BASOPHILS ABSOLUTE COUNT (BEAKER) (test code = 417) 0.03 K/ L 0. 01-0.08 IMMATURE GRANULOCYTES-RELATIVE PERCENT (BEAKER) (test code = 2801) 1 % 0-1 hCG qualitative, serum [id number] 05:46:43* Test Item Value Reference Range Interpretation Comments hCG qualitative, serum (test code = 2118-8) Negative EXP:[id number] Control: [facility] Preliminary Interpretation - Not an [id number] 04:59:05Ranjit Wise MD 03/31/2019 9:15 [facility] [place] Interpretation - Not an OrderPerformed by: Ranjit Wise MDAuthorized by: Ranjit Wise MD ECG reviewed by ED Physician in the absence of a franchise business consultant: yes Interpretation: Interpretation: normal Rate: ECG rate: 94 ECG rate assessment: normal Rhythm: Rhythm: sinus rhythm Ectopy: Ectopy: none QRS: QRS axis: Normal QRS intervals: NormalConduction: Conduction: normal ST segments: ST segments: NormalT waves: T waves: normal [facility]PH[facility] 2019-03-27 19:18:00* Test Item Value Reference Range Interpretation Comments PHOSPHORUS (BEAKER) (test code = 604) 3.6 mg/dL 2.3-4.7 [employer] ID - MAGNO [id number] 19:18:00* Test Item Value Reference Range Interpretation Comments MAGNESIUM (BEAKER) (test code = 627) 1.8 mg/dL 1.6-2.6 [employer] ID - MAGNO EBASIC METABOLIC [id number] 19:18:00* Test Item Value Reference Range Interpretation Comments SODIUM (BEAKER) (test code = 381) 139 meq/L 136-145 POTASSIUM (BEAKER) (test code = 379) 3.5 meq/L 3.5-5.1 CHLORIDE (BEAKER) (test code = 382) 106 meq/L 98-107 CO2 (BEAKER) (test code = 355) 27 meq/L 22-29 BLOOD UREA NITROGEN (BEAKER) (test code = 354) 7 mg/dL 7-21 CREATININE (BEAKER) (test code = 358) 0.66 mg/dL 0.57-1.25 GLUCOSE RANDOM (BEAKER) (test code = 652) 88 mg/dL 70-105 CALCIUM (BEAKER) (test code = 697) 9.5 mg/dL 8.4-10.2 EGFR (BEAKER) (test code = 1092) 105 mL/min/1.73 sq m ESTIMATED GFR IS NOT ACCURATE CREATININE CLEARANCE IN PREDICTING GLOMERULAR FILTRATION RATE. ESTIMATED GFR IS NOT APPLICABLE FOR DIALYSIS PATIENTS. [employer] [place] KIRAN EHEPATIC FUNCTION [id number] 19:18:00* Test Item Value Reference Range Interpretation Comments TOTAL PROTEIN (BEAKER) (test code = 770) 7.2 gm/dL 6.0-8.3 ALBUMIN (BEAKER) (test code = 1145) 4.0 g/dL 3.5-5.0 BILIRUBIN TOTAL (BEAKER) (test code = 377) 0.2 mg/dL 0.2-1.2 BILIRUBIN DIRECT (BEAKER) (test code = 706) 0.1 mg/dL 0.1-0.5 ALKALINE PHOSPHATASE (BEAKER) (test code = 346) 100 U/L 40-150 AST (SGOT) (BEAKER) (test code = 353) 14 U/L 5-34 ALT (SGPT) (BEAKER) (test code = 347) 24 U/L 6-55 [employer] [place] KIRAN [id number] 19:18:00* Test Item Value Reference Range Interpretation Comments LIPASE (BEAKER) (test code = 749) 10 U/L 8-78 [employer] ID Keenan KIRAN ECBC W/PLT COUNT & AUTO [id number] 18:21:00* Test Item Value Reference Range Interpretation Comments WHITE BLOOD CELL COUNT (BEAKER) (test code = 775) 7.4 K/ L 3.5- 10.5 RED BLOOD CELL COUNT (BEAKER) (test code = 761) 4.08 M/ L 3.93-5 .22 HEMOGLOBIN (BEAKER) (test code = 410) 10.2 GM/DL 11.2-15.7 L HEMATOCRIT (BEAKER) (test code = 411) 34.2 % 34.1-44.9 MEAN CORPUSCULAR VOLUME (BEAKER) (test code = 753) 83.8 fL 79. 4-94.8 MEAN CORPUSCULAR HEMOGLOBIN (BEAKER) (test code = 751) 25.0 pg 25.6-32.2 L MEAN CORPUSCULAR HEMOGLOBIN CONC (BEAKER) (test code = 752) 29.8 GM/DL 32.2-35.5 L RED CELL DISTRIBUTION WIDTH (BEAKER) (test code = 412) 20.1 % 11.7-14.4 H PLATELET COUNT (BEAKER) (test code = 756) 409 K/CU MM 150-450 MEAN PLATELET VOLUME (BEAKER) (test code = 754) 11.1 fL 9.4-12 .3 NUCLEATED RED BLOOD CELLS (BEAKER) (test code = 413) 0 /100 WBC 0 -0 NEUTROPHILS RELATIVE PERCENT (BEAKER) (test code = 429) 62 % LYMPHOCYTES RELATIVE PERCENT (BEAKER) (test code = 430) 31 % MONOCYTES RELATIVE PERCENT (BEAKER) (test code = 431) 4 % EOSINOPHILS RELATIVE PERCENT (BEAKER) (test code = 432) 2 % BASOPHILS RELATIVE PERCENT (BEAKER) (test code = 437) 1 % NEUTROPHILS ABSOLUTE COUNT (BEAKER) (test code = 670) 4.60 K/ L 1.56-6.13 LYMPHOCYTES ABSOLUTE COUNT (BEAKER) (test code = 414) 2.30 K/ L 1.18-3.74 MONOCYTES ABSOLUTE COUNT (BEAKER) (test code = 415) 0.29 K/ L 0. 24-0.36 EOSINOPHILS ABSOLUTE COUNT (BEAKER) (test code = 416) 0.15 K/ L 0.04-0.36 BASOPHILS ABSOLUTE COUNT (BEAKER) (test code = 417) 0.05 K/ L 0. 01-0.08 IMMATURE GRANULOCYTES-RELATIVE PERCENT (BEAKER) (test code = 2801) 0 % 0-1 URINALYSIS W/ REFLEX URINE [id number] 17:51:00* Test Item Value Reference Range Interpretation Comments COLOR (BEAKER) (test code = 470) Yellow CLARITY (BEAKER) (test code = 469) Hazy SPECIFIC GRAVITY UA (BEAKER) (test code = 468) 1.015 1.001-1 .035 PH UA (BEAKER) (test code = 467) 7.0 5.0-8.0 PROTEIN UA (BEAKER) (test code = 464) Negative Negative GLUCOSE UA (BEAKER) (test code = 365) Negative Negative KETONES UA (BEAKER) (test code = 371) Negative Negative BILIRUBIN UA (BEAKER) (test code = 462) Negative Negative BLOOD UA (BEAKER) (test code = 461) Negative Negative NITRITE UA (BEAKER) (test code = 465) Negative Negative LEUKOCYTE ESTERASE UA (BEAKER) (test code = 466) Moderate Negat wiliam A UROBILINOGEN UA (BEAKER) (test code = 463) 2.0 mg/dL 0.2-1.0 H RBC UA (BEAKER) (test code = 519) 0 /HPF WBC UA (BEAKER) (test code = 520) 4 /HPF BACTERIA (BEAKER) (test code = 517) Occasional SQUAMOUS EPITHELIAL (BEAKER) (test code = 516) 2 /HPF SOURCE(BEAKER) (test code = 2795) [employer] ID - [auto][employer] ID - hankPREGNANCY SCREEN, [id number] 17:46:00 * Test Item Value Reference Range Interpretation Comments TEST URINE (BEAKER) (test code = 583) Negative CT, [id number] 17:28:00FINAL REPORT ABDOMINAL AND PELVIS CT DATED [...] MDReport Verified Date/Time: 03/27/2019 17:28:06 Reading Location: [place] [address]Y CT Body Reading Room abdomen pelvis without [id number] 17:28:00Interface, External Ris In - 03/27/2019 5:30 PM CSTFINAL REPORT ABDOMINAL AND PELVIS CT DATED 03/27/2019 [...] MDReport Verified Date/Time: 03/27/2019 17:28:06 Reading Location: [facility] C013Y CT Body [facility] [id number] 06:17:07Interface, External Ris In - 03/20/2019 6:17 AM CSTVentricular Rate 114 BPMAtrial Rate 114 BPMP-R Interval 138 msQRS Duration 88 msQ-T Interval 348 msQTC Calculation(Bazett) 479 msP [place] 69 degreesR [place] 70 degreesT [place] 73 degreesSinus tachycardiaProlonged QTWhen compared with ECG of 31-JAN-2019 12:51,Premature ventricular complexes are no longer PresentT wave amplitude has decreased in Lateral leads I and aVLQT has lengthenedConfirmed by MD COLLIN, PONCE ([id number]) on 03/20/2019 6:17:04 [facility] CenterAmylase[facility] 10:04:00* Test Item Value Reference Range Interpretation Comments Amylase (test code = 1798-8) 52 U/L 25-125 ALICIA (test code = ALICIA) [employer] ID - AMMY C Lab Interpretation (test code = 56791-4) Normal [facility] 10:04:00* Test Item Value Reference Range Interpretation Comments LIPASE (BEAKER) (test code = 749) 9 U/L 8-78 [employer] ID - AMMY [id number] 10:04:00* Test Item Value Reference Range Interpretation Comments AMYLASE (BEAKER) (test code = 349) 52 U/L 25-125 [employer] ID - MAMY CBASIC METABOLIC [id number] 10:04:00* Test Item Value Reference Range Interpretation Comments SODIUM (BEAKER) (test code = 381) 139 meq/L 136-145 POTASSIUM (BEAKER) (test code = 379) 3.7 meq/L 3.5-5.1 CHLORIDE (BEAKER) (test code = 382) 107 meq/L 98-107 CO2 (BEAKER) (test code = 355) 24 meq/L 22-29 BLOOD UREA NITROGEN (BEAKER) (test code = 354) 9 mg/dL 7-21 CREATININE (BEAKER) (test code = 358) 0.65 mg/dL 0.57-1.25 GLUCOSE RANDOM (BEAKER) (test code = 652) 93 mg/dL 70-105 CALCIUM (BEAKER) (test code = 697) 8.8 mg/dL 8.4-10.2 EGFR (BEAKER) (test code = 1092) 107 mL/min/1.73 sq m ESTIMATED GFR IS NOT ACCURATE CREATININE CLEARANCE IN PREDICTING GLOMERULAR FILTRATION RATE. ESTIMATED GFR IS NOT APPLICABLE FOR DIALYSIS PATIENTS. [employer] ID - AMMY CHEPATIC FUNCTION [id number] 10:04:00* Test Item Value Reference Range Interpretation Comments TOTAL PROTEIN (BEAKER) (test code = 770) 7.5 gm/dL 6.0-8.3 ALBUMIN (BEAKER) (test code = 1145) 4.2 g/dL 3.5-5.0 BILIRUBIN TOTAL (BEAKER) (test code = 377) 0.2 mg/dL 0.2-1.2 BILIRUBIN DIRECT (BEAKER) (test code = 706) 0.1 mg/dL 0.1-0.5 ALKALINE PHOSPHATASE (BEAKER) (test code = 346) 116 U/L 40-150 AST (SGOT) (BEAKER) (test code = 353) 13 U/L 5-34 ALT (SGPT) (BEAKER) (test code = 347) 44 U/L 6-55 [employer] ID - AMMY CUrinalysis w/Bubzvlcjlwj5437-03-22 09:18:00* Test Item Value Reference Range Interpretation Comments Color, UA (test code = 5778-6) Yellow Clarity, UA (test code = 5767-9) Hazy Specific [place], UA (test code = 5811-5) 1.026 1.001-1.035 pH, UA (test code = 5803-2) 6.5 5.0-8.0 Protein, UA (test code = 47917-0) 20 mg/dL Negative A Glucose, UA (test code = 365) Negative Negative Ketones, UA (test code = 2514-8) Negative Negative Bilirubin, UA (test code = 26818-3) Negative Negative Blood, UA (test code = 24659-6) Negative Negative Nitrite, UA (test code = 5802-4) Negative Negative Leukocytes, UA (test code = 5799-2) Trace Negative A Urobilinogen, UA (test code = 03807-6) 2.0 mg/dL 0.2-1 H RBC, UA (test code = 98238-3) <1 /HPF WBC, UA (test code = 5821-4) 3 /HPF Mucus (test code = 8247-9) Rare Squam Epithel, UA (test code = 90872-6) 37 /HPF Amorphous Crystals (test code = 86952-8) Occasional Specimen Source (test code = 2795) ALICIA (test code = ALICIA) [employer] ID - [auto][employer] ID - tech Lab Interpretation (test code = 19376-7) [facility]normal [facility]/ [id number] 09:18:00* Test Item Value Reference Range Interpretation Comments COLOR (BEAKER) (test code = 470) Yellow CLARITY (BEAKER) (test code = 469) Hazy SPECIFIC GRAVITY UA (BEAKER) (test code = 468) 1.026 1.001-1 .035 PH UA (BEAKER) (test code = 467) 6.5 5.0-8.0 PROTEIN UA (BEAKER) (test code = 464) 20 mg/dL Negative A GLUCOSE UA (BEAKER) (test code = 365) Negative Negative KETONES UA (BEAKER) (test code = 371) Negative Negative BILIRUBIN UA (BEAKER) (test code = 462) Negative Negative BLOOD UA (BEAKER) (test code = 461) Negative Negative NITRITE UA (BEAKER) (test code = 465) Negative Negative LEUKOCYTE ESTERASE UA (BEAKER) (test code = 466) Trace Negat wiliam A UROBILINOGEN UA (BEAKER) (test code = 463) 2.0 mg/dL 0.2-1.0 H RBC UA (BEAKER) (test code = 519) < /HPF WBC UA (BEAKER) (test code = 520) 3 /HPF MUCUS (BEAKER) (test code = 1574) Rare SQUAMOUS EPITHELIAL (BEAKER) (test code = 516) 37 /HPF AMORPHOUS CRYSTALS (BEAKER) (test code = 1584) Occasional SOURCE(BEAKER) (test code = 2795) [employer] ID - [auto][employer] ID - techCBC W/PLT COUNT & AUTO DIFFERENTIAL 2019-03-19 08:37:00* Test Item Value Reference Range Interpretation Comments WHITE BLOOD CELL COUNT (BEAKER) (test code = 775) 6.4 K/ L 3.5- 10.5 RED BLOOD CELL COUNT (BEAKER) (test code = 761) 4.42 M/ L 3.93-5 .22 HEMOGLOBIN (BEAKER) (test code = 410) 11.4 GM/DL 11.2-15.7 HEMATOCRIT (BEAKER) (test code = 411) 36.9 % 34.1-44.9 MEAN CORPUSCULAR VOLUME (BEAKER) (test code = 753) 83.5 fL 79. 4-94.8 MEAN CORPUSCULAR HEMOGLOBIN (BEAKER) (test code = 751) 25.8 pg 25.6-32.2 MEAN CORPUSCULAR HEMOGLOBIN CONC (BEAKER) (test code = 752) 30.9 GM/DL 32.2-35.5 L RED CELL DISTRIBUTION WIDTH (BEAKER) (test code = 412) 19.3 % 11.7-14.4 H PLATELET COUNT (BEAKER) (test code = 756) 442 K/CU MM 150-450 MEAN PLATELET VOLUME (BEAKER) (test code = 754) 10.4 fL 9.4-12 .3 NUCLEATED RED BLOOD CELLS (BEAKER) (test code = 413) 0 /100 WBC 0 -0 NEUTROPHILS RELATIVE PERCENT (BEAKER) (test code = 429) 58 % LYMPHOCYTES RELATIVE PERCENT (BEAKER) (test code = 430) 34 % MONOCYTES RELATIVE PERCENT (BEAKER) (test code = 431) 5 % EOSINOPHILS RELATIVE PERCENT (BEAKER) (test code = 432) 3 % BASOPHILS RELATIVE PERCENT (BEAKER) (test code = 437) 1 % NEUTROPHILS ABSOLUTE COUNT (BEAKER) (test code = 670) 3.69 K/ L 1.56-6.13 LYMPHOCYTES ABSOLUTE COUNT (BEAKER) (test code = 414) 2.18 K/ L 1.18-3.74 MONOCYTES ABSOLUTE COUNT (BEAKER) (test code = 415) 0.29 K/ L 0. 24-0.36 EOSINOPHILS ABSOLUTE COUNT (BEAKER) (test code = 416) 0.17 K/ L 0.04-0.36 BASOPHILS ABSOLUTE COUNT (BEAKER) (test code = 417) 0.04 K/ L 0. 01-0.08 IMMATURE GRANULOCYTES-RELATIVE PERCENT (BEAKER) (test code = 2801) 0 % 0-1 DRUGS OF ABUSE SCREEN [id number] 20:44:00* Test Item Value Reference Range Interpretation Comments UA PH DIPSTICK (test code = ROC) 6.0 5.0-8.0 URN COCAINE (test code = COCAURN) NEGATIVE <300 ng/mL URN CANNABINOIDS (test code = CANNABURN) POSITIVE <50 ng/mL A This test provides only a preliminary test [...] (e.g., employment testing, legaltesting). URN AMPHETAMINE (test code = AMPHETURN) NEGATIVE <1000 ng/mL URN BARBITURATE (test code = BARBITURN) NEGATIVE <200 ng/mL URN BENZODIAZEPINE (test code = BENZOURN) POSITIVE <200 ng/mL A This test provides only a preliminary test [...] (e.g., employment testing, legaltesting). URN OPIATES (test code = OPIATURN) NEGATIVE <300 ng/mL URN PHENCYCLIDINE (PCP) (test code = PHENCURN) NEGATIVE <25 ng/ mL URN METHADONE (test code = METHAURN) NEGATIVE <300 ng/mL DRUGS OF ABUSE SCREEN [id number] 19:41:00* Test Item Value Reference Range Interpretation Comments UA PH DIPSTICK (test code = ROC) 5.0-8.0 URN COCAINE (test code = COCAURN) NEGATIVE <300 ng/mL URN CANNABINOIDS (test code = CANNABURN) POSITIVE <50 ng/mL A This test provides only a preliminary test [...] (e.g., employment testing, legaltesting). URN AMPHETAMINE (test code = AMPHETURN) NEGATIVE <1000 ng/mL URN BARBITURATE (test code = BARBITURN) NEGATIVE <200 ng/mL URN BENZODIAZEPINE (test code = BENZOURN) POSITIVE <200 ng/mL A This test provides only a preliminary test [...] (e.g., employment testing, legaltesting). URN OPIATES (test code = OPIATURN) NEGATIVE <300 ng/mL URN PHENCYCLIDINE (PCP) (test code = PHENCURN) NEGATIVE <25 ng/ mL URN METHADONE (test code = METHAURN) NEGATIVE <300 ng/mL URINALYSIS [id number] 19:01:00* Test Item Value Reference Range Interpretation Comments UA COLOR (test code = COLU) YELLOW YELLOW UA APPEARANCE (test code = APPU) CLEAR CLEAR UA GLUCOSE DIPSTICK (test code = DGLUU) NEGATIVE mg/dL NEGATIVE UA BILIRUBIN DIPSTICK (test code = BILU) NEGATIVE mg/dL NEGATIVE UA KETONE DIPSTICK (test code = KETU) NEGATIVE mg/dL NEGATIVE UA SPECIFIC GRAVITY (test code = SGU) 1.025 1.001-1.035 UA BLOOD DIPSTICK (test code = ZABRINA) Negative mg/dL NEGATIVE UA PH DIPSTICK (test code = ROC) 6.0 5.0-8.0 UA PROTEIN DIPSTICK (test code = PROU) 10 (Trace) mg/dL NEGATIVE A UA UROBILINIOGEN DIPSTICK (test code = URO) 2.0 (1+) mg/dL NEGATIVE A UA NITRITE DIPSTICK (test code = NURA) NEGATIVE NEGATIVE UA LEUKOCYTE ESTERASE W REFLEX (test code = LEUUR) NEGATIVE Mihaela/uL NEGATIVE UA WBC (test code = WBCU) 0-5 per HPF 0-5 UA RBC (test code = RBCU) 0-2 #/HPF 0-5 UA EPITHELIAL CELLS (test code = EPIU) FEW per HPF FEW UA BACTERIA (test code = BACU) NONE SEEN #/HPF NONE UA MUCUS (test code = MUCU) FEW #/LPF FEW Urine Source? Clean CatchURINALYSIS [id number] 19:00:00* Test Item Value Reference Range Interpretation Comments UA COLOR (test code = COLU) YELLOW YELLOW UA APPEARANCE (test code = APPU) CLEAR CLEAR UA GLUCOSE DIPSTICK (test code = DGLUU) NEGATIVE mg/dL NEGATIVE UA BILIRUBIN DIPSTICK (test code = BILU) NEGATIVE mg/dL NEGATIVE UA KETONE DIPSTICK (test code = KETU) NEGATIVE mg/dL NEGATIVE UA SPECIFIC GRAVITY (test code = SGU) 1.025 1.001-1.035 UA BLOOD DIPSTICK (test code = ZABRINA) Negative mg/dL NEGATIVE UA PH DIPSTICK (test code = ROC) 6.0 5.0-8.0 UA PROTEIN DIPSTICK (test code = PROU) 10 (Trace) mg/dL NEGATIVE A UA UROBILINIOGEN DIPSTICK (test code = URO) 2.0 (1+) mg/dL NEGATIVE A UA NITRITE DIPSTICK (test code = NURA) NEGATIVE NEGATIVE UA LEUKOCYTE ESTERASE W REFLEX (test code = LEUUR) NEGATIVE Mihaela/uL NEGATIVE UA WBC (test code = WBCU) per HPF 0-5 UA RBC (test code = RBCU) per HPF 0-5 UA EPITHELIAL CELLS (test code = EPIU) per HPF Few UA BACTERIA (test code = BACU) per HPF NONE Urine Source? Clean CatchCT, [id number] 06:38:00Reason for exam:-> Abdominal painWhat is the patient's sedation requirement?->No SedationIs the patient ?->UnknownFINAL REPORT TECHNIQUE: CT of the abdomen and pelvis WITH intravenous contrast and WITHOUT oral contrast. Dose modulation, iterative reconstruction, and/or weight-based adjustment of the mA/kV was utilized to reduce the radiation dose to as low as reasonably achievable. INDICATION: Abdominal pain and leukocytosis. COMPARISON: MA/22/18. FINDINGS: LOWER THORAX: Unremarkable. HEPATOBILIARY: No focal [...] WALDEN MD on 02/18/2019 06:38 AM SCREEN, [id number] 05:54:00* Test Item Value Reference Range Interpretation Comments TEST URINE (BEAKER) (test code = 583) Negative [id number] 04:23:00* Test Item Value Reference Range Interpretation Comments MAGNESIUM (BEAKER) (test code = 627) 1.5 mg/dL 1.6-2.6 L COMPREHENSIVE METABOLIC [id number] 04:23:00* Test Item Value Reference Range Interpretation Comments TOTAL PROTEIN (BEAKER) (test code = 770) 7.9 gm/dL 6.0-8.3 ALBUMIN (BEAKER) (test code = 1145) 4.5 g/dL 3.5-5.0 ALKALINE PHOSPHATASE (BEAKER) (test code = 346) 98 U/L 40-150 BILIRUBIN TOTAL (BEAKER) (test code = 377) 0.4 mg/dL 0.2-1.2 SODIUM (BEAKER) (test code = 381) 137 meq/L 136-145 POTASSIUM (BEAKER) (test code = 379) 3.7 meq/L 3.5-5.1 CHLORIDE (BEAKER) (test code = 382) 105 meq/L 98-107 CO2 (BEAKER) (test code = 355) 22 meq/L 22-29 BLOOD UREA NITROGEN (BEAKER) (test code = 354) 7 mg/dL 7-21 CREATININE (BEAKER) (test code = 358) 0.64 mg/dL 0.57-1.25 GLUCOSE RANDOM (BEAKER) (test code = 652) 112 mg/dL 70-105 H CALCIUM (BEAKER) (test code = 697) 9.2 mg/dL 8.4-10.2 AST (SGOT) (BEAKER) (test code = 353) 21 U/L 5-34 ALT (SGPT) (BEAKER) (test code = 347) 33 U/L 6-55 EGFR (BEAKER) (test code = 1092) 109 mL/min/1.73 sq m ESTIMATED GFR IS NOT ACCURATE CREATININE CLEARANCE IN PREDICTING GLOMERULAR FILTRATION RATE. ESTIMATED GFR IS NOT APPLICABLE FOR DIALYSIS PATIENTS. CBC W/PLT COUNT & AUTO [id number] 03:59:00* Test Item Value Reference Range Interpretation Comments WHITE BLOOD CELL COUNT (BEAKER) (test code = 775) 13.8 K/ L 3.5- 10.5 H RED BLOOD CELL COUNT (BEAKER) (test code = 761) 3.71 M/ L 3.93-5 .22 L HEMOGLOBIN (BEAKER) (test code = 410) 9.4 GM/DL 11.2-15.7 L HEMATOCRIT (BEAKER) (test code = 411) 29.8 % 34.1-44.9 L MEAN CORPUSCULAR VOLUME (BEAKER) (test code = 753) 80.3 fL 79. 4-94.8 MEAN CORPUSCULAR HEMOGLOBIN (BEAKER) (test code = 751) 25.3 pg 25.6-32.2 L MEAN CORPUSCULAR HEMOGLOBIN CONC (BEAKER) (test code = 752) 31.5 GM/DL 32.2-35.5 L RED CELL DISTRIBUTION WIDTH (BEAKER) (test code = 412) 19.1 % 11.7-14.4 H PLATELET COUNT (BEAKER) (test code = 756) 387 K/CU MM 150-450 MEAN PLATELET VOLUME (BEAKER) (test code = 754) 10.1 fL 9.4-12 .3 NUCLEATED RED BLOOD CELLS (BEAKER) (test code = 413) 0 /100 WBC 0 -0 NEUTROPHILS RELATIVE PERCENT (BEAKER) (test code = 429) 90 % LYMPHOCYTES RELATIVE PERCENT (BEAKER) (test code = 430) 7 % MONOCYTES RELATIVE PERCENT (BEAKER) (test code = 431) 2 % EOSINOPHILS RELATIVE PERCENT (BEAKER) (test code = 432) 0 % BASOPHILS RELATIVE PERCENT (BEAKER) (test code = 437) 0 % NEUTROPHILS ABSOLUTE COUNT (BEAKER) (test code = 670) 12.40 K/ L 1.56-6.13 H LYMPHOCYTES ABSOLUTE COUNT (BEAKER) (test code = 414) 0.98 K/ L 1.18-3.74 L MONOCYTES ABSOLUTE COUNT (BEAKER) (test code = 415) 0.31 K/ L 0. 24-0.36 EOSINOPHILS ABSOLUTE COUNT (BEAKER) (test code = 416) 0.01 K/ L 0.04-0.36 L BASOPHILS ABSOLUTE COUNT (BEAKER) (test code = 417) 0.03 K/ L 0. 01-0.08 IMMATURE GRANULOCYTES-RELATIVE PERCENT (BEAKER) (test code = 2801) 1 % 0-1 URINALYSIS W/ REFLEX URINE [id number] 00:49:00* Test Item Value Reference Range Interpretation Comments COLOR (BEAKER) (test code = 470) Yellow CLARITY (BEAKER) (test code = 469) Cloudy SPECIFIC GRAVITY UA (BEAKER) (test code = 468) 1.020 1.001-1 .035 PH UA (BEAKER) (test code = 467) 8.0 5.0-8.0 PROTEIN UA (BEAKER) (test code = 464) 70 mg/dL Negative A GLUCOSE UA (BEAKER) (test code = 365) 200 mg/dL Negative A KETONES UA (BEAKER) (test code = 371) 10 mg/dL Negative A BILIRUBIN UA (BEAKER) (test code = 462) Negative Negative BLOOD UA (BEAKER) (test code = 461) Trace Negative A NITRITE UA (BEAKER) (test code = 465) Negative Negative LEUKOCYTE ESTERASE UA (BEAKER) (test code = 466) Moderate Negat wiliam A UROBILINOGEN UA (BEAKER) (test code = 463) 0.2 mg/dL 0.2-1.0 RBC UA (BEAKER) (test code = 519) 14 /HPF WBC UA (BEAKER) (test code = 520) 8 /HPF BACTERIA (BEAKER) (test code = 517) Occasional MUCUS (BEAKER) (test code = 1574) Many SQUAMOUS EPITHELIAL (BEAKER) (test code = 516) 43 /HPF SOURCE(BEAKER) (test code = 2795) XR Abdomen 1 [id number] 21:42:41Hm Interface, Radiology Results Incoming - 02/17/2019 9:45 PM CSTEXAMINATION: XR ABDOMEN 1 VWCLINICAL HISTORY: Abd pain unspecifiedCOMPARISON: September 07, 2017FINDINGS:The bowel gas pattern is nonspecific. No pathologic masses or calcifications are identified. The lung bases are free of acute disease. Regional skeletal structures are within normal limits. A 0.3 cm calcification in the right side of the pelvis has been shown by previous CT scan to represent a phlebolith.IMPRESSION:Unremarkable abdominal radiograph.[facility]-TU49CYBBEfkvcqv JrdiswssmMbamqwgfnmkx6378-60-91 12:33:00* Test Item Value Reference Range Interpretation Comments Sodium (test code = 2951-2) 139 meq/L 136-145 Potassium (test code = 2823-3) 3.6 meq/L 3.5-5.1 Chloride (test code = 2075-0) 106 meq/L 98-107 CO2 (test code = 2027-9) 28 meq/L 22-29 Lab Interpretation (test code = 53658-5) [facility] Bqifisqgbe3137-31-33 12:33:00* Test Item Value Reference Range Interpretation Comments BUN (test code = 3094-0) 12 mg/dL 7-21 Creatinine (test code = 2160-0) 0.65 mg/dL 0.57-1.25 EGFR (test code = 24814-0) 107 mL/min/1.73 sq m ESTIMATED GFR IS NOT ACCURATE CREATININE CLEARANCE IN PREDICTING GLOMERULAR FILTRATION RATE. ESTIMATED GFR IS NOT APPLICABLE FOR DIALYSIS PATIENTS. [facility] AND [id number] 12:33:00* Test Item Value Reference Range Interpretation Comments BLOOD UREA NITROGEN (BEAKER) (test code = 354) 12 mg/dL 7-21 CREATININE (BEAKER) (test code = 358) 0.65 mg/dL 0.57-1.25 EGFR (BEAKER) (test code = 1092) 107 mL/min/1.73 sq m ESTIMATED GFR IS NOT ACCURATE CREATININE CLEARANCE IN PREDICTING GLOMERULAR FILTRATION RATE. ESTIMATED GFR IS NOT APPLICABLE FOR DIALYSIS PATIENTS. [id number] 12:33:00* Test Item Value Reference Range Interpretation Comments SODIUM (BEAKER) (test code = 381) 139 meq/L 136-145 POTASSIUM (BEAKER) (test code = 379) 3.6 meq/L 3.5-5.1 CHLORIDE (BEAKER) (test code = 382) 106 meq/L 98-107 CO2 (BEAKER) (test code = 355) 28 meq/L 22-29 CBC W/PLT COUNT & AUTO [id number] 12:10:00* Test Item Value Reference Range Interpretation Comments WHITE BLOOD CELL COUNT (BEAKER) (test code = 775) 5.2 K/ L 3.5- 10.5 RED BLOOD CELL COUNT (BEAKER) (test code = 761) 4.01 M/ L 3.93-5 .22 HEMOGLOBIN (BEAKER) (test code = 410) 10.3 GM/DL 11.2-15.7 L HEMATOCRIT (BEAKER) (test code = 411) 33.2 % 34.1-44.9 L MEAN CORPUSCULAR VOLUME (BEAKER) (test code = 753) 82.8 fL 79. 4-94.8 MEAN CORPUSCULAR HEMOGLOBIN (BEAKER) (test code = 751) 25.7 pg 25.6-32.2 MEAN CORPUSCULAR HEMOGLOBIN CONC (BEAKER) (test code = 752) 31.0 GM/DL 32.2-35.5 L RED CELL DISTRIBUTION WIDTH (BEAKER) (test code = 412) 19.4 % 11.7-14.4 H PLATELET COUNT (BEAKER) (test code = 756) 288 K/CU MM 150-450 MEAN PLATELET VOLUME (BEAKER) (test code = 754) 10.6 fL 9.4-12 .3 NUCLEATED RED BLOOD CELLS (BEAKER) (test code = 413) 0 /100 WBC 0 -0 NEUTROPHILS RELATIVE PERCENT (BEAKER) (test code = 429) 61 % LYMPHOCYTES RELATIVE PERCENT (BEAKER) (test code = 430) 27 % MONOCYTES RELATIVE PERCENT (BEAKER) (test code = 431) 9 % EOSINOPHILS RELATIVE PERCENT (BEAKER) (test code = 432) 2 % BASOPHILS RELATIVE PERCENT (BEAKER) (test code = 437) 0 % NEUTROPHILS ABSOLUTE COUNT (BEAKER) (test code = 670) 3.21 K/ L 1.56-6.13 LYMPHOCYTES ABSOLUTE COUNT (BEAKER) (test code = 414) 1.41 K/ L 1.18-3.74 MONOCYTES ABSOLUTE COUNT (BEAKER) (test code = 415) 0.49 K/ L 0. 24-0.36 H EOSINOPHILS ABSOLUTE COUNT (BEAKER) (test code = 416) 0.09 K/ L 0.04-0.36 BASOPHILS ABSOLUTE COUNT (BEAKER) (test code = 417) 0.02 K/ L 0. 01-0.08 IMMATURE GRANULOCYTES-RELATIVE PERCENT (BEAKER) (test code = 2801) 0 % 0-1 Urine Opiates Pwskmi4006-94-26 09:43:00* Test Item Value Reference Range Interpretation Comments Urine Opiates Screen (test code = 23060-8) POSITIVE NEGATIVE H ALL TESTS PERFORMED MANUALLY ON [employer] TOX/SEE TEST This test provides only a sc reen. Positive results should be repeated by a confirmatory test.[facility] Barbiturates Fdtglr3135-35-16 09:43:00* Test Item Value Reference Range Interpretation Comments Urine Barbiturates Screen (test code = 480739533) NEGATIVE NEGA TIVE [facility] NorthwestUrine Phencyclidine Ttspax5447-25-33 09:43:00* Test Item Value Reference Range Interpretation Comments Urine Phencyclidine Screen (test code = 86275-3) NEGATIVE NEGAT WILIAM [facility] NorthwestUrine Amphetamines [id number] 09:43:00* Test Item Value Reference Range Interpretation Comments Urine Amphetamines Screen (test code = 71210-7) NEGATIVE NEGATI VE [facility] NorthwestUrine Methamphetamines Ssdrpr9492-88-90 09:43:00* Test Item Value Reference Range Interpretation Comments Urine Methamphetamines Screen (test code = Urine Metha mphetamines Screen) NEGATIVE NEGATIVE [facility] NorthwestUrine Benzodiazepines [id number] 09:43:00* Test Item Value Reference Range Interpretation Comments Urine Benzodiazepines Screen (test code = 25274-8) POSITIVE NEG ATIVE H This test provides only a screen. Positive results should be repeated by a confi rmatory test.[facility] NorthwestUrine Cocaine Screen 2019-01-06 09:43:00* Test Item Value Reference Range Interpretation Comments Urine Cocaine Screen (test code = 3398-5) NEGATIVE NEGATIVE [facility] NorthwestUrine Cannabinoids Ynshle8529-37-46 09:43:00* Test Item Value Reference Range Interpretation Comments Urine Cannabinoids Screen (test code = 61198-9) POSITIVE NEGATI VE H THESE RESULTS ARE FOR MEDICAL TREATMENT ONLYTHIS REPORT CONTAINS UNCONFIR MED SCREENING RESULTS*POSITIVE RESULTS WILL BE CONFIRMED BY REFERENCE LAB UPON R EQUEST CUT-OFFDRUG CLASS CONCENTRATION ng/mLAmphetamines 1000Methamphetamines 1000Cocaine 300Opiate 300Phencyc lidine 25Cannabinoid 50Barbiturates 300Benzodiazepine 300Methadone 300 This test p rovides only a screen. Positive results should be repeated by a confirmatory bella t.[facility] NorthwestUrine Methadone Uiswsr4535-27-67 09:43:00* Test Item Value Reference Range Interpretation Comments Urine Methadone Screen (test code = 96725-8) NEGATIVE NEGATIVE THESE RESULTS ARE FOR MEDICAL TREATMENT ONLYTHIS REPORT CONTAINS UNCONFIR MED SCREENING RESULTS*POSITIVE RESULTS WILL BE CONFIRMED BY REFERENCE LAB UPON R EQUEST CUT-OFFDRUG CLASS CONCENTRATION ng/mLAmphetamines 1000Methamphetamines 1000Cocaine Metabolite 300Opiate 300Phencyc lidine 25Cannabinoid 50Barbiturates 300Benzodiazepine 300Methadone 300[facility]ates Iealkv8833-93-03 09:43:00* Test Item Value Reference Range Interpretation Comments Urine Opiates Screen (test code = 96304-7) POSITIVE NEGATIVE H ALL TESTS PERFORMED MANUALLY ON [employer] TOX/SEE TEST This test provides only a sc reen. Positive results should be repeated by a confirmatory test.[facility] NorthwestUrine Barbiturates Tyojdc5616-21-97 09:43:00* Test Item Value Reference Range Interpretation Comments Urine Barbiturates Screen (test code = 129917346) NEGATIVE NEGA TIVE [facility] NorthwestUrine Phencyclidine Sahdxk0033-92-89 09:43:00* Test Item Value Reference Range Interpretation Comments Urine Phencyclidine Screen (test code = 52167-8) NEGATIVE NEGAT WILIAM [facility] NorthwestUrine Amphetamines Ztoffm0407-36-46 09:43:00* Test Item Value Reference Range Interpretation Comments Urine Amphetamines Screen (test code = 56158-0) NEGATIVE NEGATI VE [facility] NorthwestUrine Methamphetamines Ipupqh3729-62-80 09:43:00* Test Item Value Reference Range Interpretation Comments Urine Methamphetamines Screen (test code = Urine Metha mphetamines Screen) NEGATIVE NEGATIVE [facility] NorthwestUrine Benzodiazepines Whddot0687-33-42 09:43:00* Test Item Value Reference Range Interpretation Comments Urine Benzodiazepines Screen (test code = 64894-8) POSITIVE NEG ATIVE H This test provides only a screen. Positive results should be repeated by a confi rmatory test.[facility] NorthwestUrine Cocaine Screen 2019-01-06 09:43:00* Test Item Value Reference Range Interpretation Comments Urine Cocaine Screen (test code = 3398-5) NEGATIVE NEGATIVE [facility] NorthwestUrine Cannabinoids Iqlqyt1840-97-16 09:43:00* Test Item Value Reference Range Interpretation Comments Urine Cannabinoids Screen (test code = 90022-7) POSITIVE NEGATI VE H THESE RESULTS ARE FOR MEDICAL TREATMENT ONLYTHIS REPORT CONTAINS UNCONFIR MED SCREENING RESULTS*POSITIVE RESULTS WILL BE CONFIRMED BY REFERENCE LAB UPON R EQUEST CUT-OFFDRUG CLASS CONCENTRATION ng/mLAmphetamines 1000Methamphetamines 1000Cocaine 300Opiate 300Phencyc lidine 25Cannabinoid 50Barbiturates 300Benzodiazepine 300Methadone 300 This test p rovides only a screen. Positive results should be repeated by a confirmatory bella t.[facility] NorthwestUrine Methadone Hbagjw9963-95-19 09:43:00* Test Item Value Reference Range Interpretation Comments Urine Methadone Screen (test code = 48322-0) NEGATIVE NEGATIVE THESE RESULTS ARE FOR MEDICAL TREATMENT ONLYTHIS REPORT CONTAINS UNCONFIR MED SCREENING RESULTS*POSITIVE RESULTS WILL BE CONFIRMED BY REFERENCE LAB UPON R EQUEST CUT-OFFDRUG CLASS CONCENTRATION ng/mLAmphetamines 1000Methamphetamines 1000Cocaine Metabolite 300Opiate 300Phencyc lidine 25Cannabinoid 50Barbiturates 300Benzodiazepine 300Methadone 300[facility]healthTriglycerides Pcmmu6955-46-73 09:02:00* Test Item Value Reference Range Interpretation Comments Triglycerides Level (test code = 2571-8) 56 0-149 [facility] NorthwestCholesterol Grlmt3426-47-02 09:02:00* Test Item Value Reference Range Interpretation Comments Cholesterol Level (test code = 2093-3) 147 0-199 Less than 200 mg/dL Low Zkjc283 - 239 mg/dL Borderline Vgmp055 m g/dl and greater High Risk [facility] NorthwestLDL Jhinygerpjl1388-90-51 09:02:00* Test Item Value Reference Range Interpretation Comments LDL Cholesterol (test code = 2089-1) 90 60-130 [facility] NorthwestHDL Aqucnrfcsue8748-23-14 09:02:00* Test Item Value Reference Range Interpretation Comments HDL Cholesterol (test code = 2085-9) 46 40-60 [facility] NorthwestCholesterol/HDL Xkqwr9814-07-98 09:02:00 * Test Item Value Reference Range Interpretation Comments Cholesterol/HDL Ratio (test code = 9830-1) 3.2 3.0-3.6 [facility] NorthwestTriglycerides Madmf7733-88-15 09:02:00* Test Item Value Reference Range Interpretation Comments Triglycerides Level (test code = 2571-8) 56 0-149 [facility] NorthwestCholesterol Udjfg5001-74-01 09:02:00* Test Item Value Reference Range Interpretation Comments Cholesterol Level (test code = 2093-3) 147 0-199 Less than 200 mg/dL Low Gitv564 - 239 mg/dL Borderline Dpdy269 m g/dl and greater High Risk [facility] NorthwestLDL Bisavugqwcp1828-95-68 09:02:00* Test Item Value Reference Range Interpretation Comments LDL Cholesterol (test code = 2089-1) 90 60-130 [facility] NorthwestHDL Achmvmvoxmu1508-99-92 09:02:00* Test Item Value Reference Range Interpretation Comments HDL Cholesterol (test code = 2085-9) 46 40-60 [facility] NorthwestCholesterol/HDL Bzqyo1645-63-05 09:02:00 * Test Item Value Reference Range Interpretation Comments Cholesterol/HDL Ratio (test code = 9830-1) 3.2 3.0-3.6 [facility] NorthwestHemoglobin A1c Skpaxyh6368-08-06 08:57:00 * Test Item Value Reference Range Interpretation Comments Hemoglobin A1c Percent (test code = Hemoglobin A1c Percent) 5.0 4.0-7.0 [facility] NorthwestHemoglobin A1c Kncnepi8488-86-05 08:57:00 * Test Item Value Reference Range Interpretation Comments Hemoglobin A1c Percent (test code = Hemoglobin A1c Percent) 5.0 4.0-7.0 [facility] Pjnlx0532-19-40 08:50:00* Test Item Value Reference Range Interpretation Comments Sodium Level (test code = 2951-2) 137 136-145 [facility] NorthwestPotassium Ocrwm6443-61-91 08:50:00* Test Item Value Reference Range Interpretation Comments Potassium Level (test code = 2823-3) 3.4 3.5-5.1 L [facility] NorthwestChloride Roztz5922-05-71 08:50:00* Test Item Value Reference Range Interpretation Comments Chloride Level (test code = 2075-0) 105 98-107 [facility] NorthwestCarbon Dioxide Cmaxw3812-19-80 08:50:00* Test Item Value Reference Range Interpretation Comments Carbon Dioxide Level (test code = 2028-9) 27 22-29 [facility] NorthwestAnion Pyp4096-03-96 08:50:00* Test Item Value Reference Range Interpretation Comments Anion Gap (test code = 17565-6) 8.4 8-16 [facility] NorthwestBlood Urea Cwmafmlx3738-17-91 08:50:00* Test Item Value Reference Range Interpretation Comments Blood Urea Nitrogen (test code = 3094-0) 5 7-26 L [facility] NorthwestCreatinine2019-11-08 08:50:00* Test Item Value Reference Range Interpretation Comments Creatinine (test code = 2160-0) 0.58 0.57-1.11 [facility] NorthwestBUN/Creatinine Vcogp0088-69-59 08:50:00* Test Item Value Reference Range Interpretation Comments BUN/Creatinine Ratio (test code = 3097-3) 9 6-25 [facility] NorthwestEstimat Glomerular Filtration Rate 2019-01-06 08:50:00* Test Item Value Reference Range Interpretation Comments Estimat Glomerular Filtration Rate (test code = 639301983) > 60 >60 Ranges were taken from the National Kidney Disease Education Program and the [facility] [employer] literature.Reference ranges:60 or greater: Fjrylr36-98 ( for 3 consecutive months): Chronic kidney disease 15 or less: Kidney failureHCA Houston Healthcare NorthwestGlucose Ilzqx5609-31-16 08:50:00* Test Item Value Reference Range Interpretation Comments Glucose Level (test code = LTF1432) 75 74-118 [facility] NorthwestCalcium Ooelo5040-09-47 08:50:00* Test Item Value Reference Range Interpretation Comments Calcium Level (test code = 19413-5) 8.8 8.4-10.2 [facility] Heightsodium Kvrin3296-14-37 08:50:00* Test Item Value Reference Range Interpretation Comments Sodium Level (test code = 2951-2) 137 136-145 [facility] NorthwestPotassium Mookv5931-97-38 08:50:00* Test Item Value Reference Range Interpretation Comments Potassium Level (test code = 2823-3) 3.4 3.5-5.1 L [facility] NorthwestChloride Hkjqn9227-59-40 08:50:00* Test Item Value Reference Range Interpretation Comments Chloride Level (test code = 2075-0) 105 98-107 [facility] NorthwestCarbon Dioxide Yzgkx1073-73-42 08:50:00* Test Item Value Reference Range Interpretation Comments Carbon Dioxide Level (test code = 2028-9) 27 22-29 [facility] NorthwestAnion Xad5952-29-28 08:50:00* Test Item Value Reference Range Interpretation Comments Anion Gap (test code = 42247-0) 8.4 8-16 [facility] NorthwestBlood Urea Fnldntlv2179-99-10 08:50:00* Test Item Value Reference Range Interpretation Comments Blood Urea Nitrogen (test code = 3094-0) 5 7-26 L [facility] NorthwestCreatinine2019-11-08 08:50:00* Test Item Value Reference Range Interpretation Comments Creatinine (test code = 2160-0) 0.58 0.57-1.11 [facility] NorthwestBUN/Creatinine Oegqi5791-08-01 08:50:00* Test Item Value Reference Range Interpretation Comments BUN/Creatinine Ratio (test code = 3097-3) 9 6-25 [facility] NorthwestEstimat Glomerular Filtration Rate 2019-01-06 08:50:00* Test Item Value Reference Range Interpretation Comments Estimat Glomerular Filtration Rate (test code = 377574537) > 60 >60 Ranges were taken from the National Kidney Disease Education Program and the [facility] [employer] literature.Reference ranges:60 or greater: Cotuhi66-80 ( for 3 consecutive months): Chronic kidney disease 15 or less: Kidney failureHCA Houston Healthcare NorthwestGlucose Fvctu4282-76-86 08:50:00* Test Item Value Reference Range Interpretation Comments Glucose Level (test code = QTJ0078) 75 74-118 [facility] NorthwestCalcium Yjkmo6909-05-23 08:50:00* Test Item Value Reference Range Interpretation Comments Calcium Level (test code = 63471-5) 8.8 8.4-10.2 [facility] NorthwestWhite Blood Aeokc9540-38-05 08:46:00* Test Item Value Reference Range Interpretation Comments White Blood Count (test code = 6690-2) 5.82 4.8-10.8 [facility] NorthwestRed Blood Ulsac1446-00-26 08:46:00* Test Item Value Reference Range Interpretation Comments Red Blood Count (test code = 789-8) 3.32 3.6-5.1 L [facility] NorthwestHemoglobin2019-11-08 08:46:00* Test Item Value Reference Range Interpretation Comments Hemoglobin (test code = 04910-4) 8.5 12.0-16.0 L [facility] NorthwestHematocrit2019-11-08 08:46:00* Test Item Value Reference Range Interpretation Comments Hematocrit (test code = 4544-3) 28.0 34.2-44.1 L [facility] NorthwestMean Corpuscular Grwtnt7062-96-94 08:46:00* Test Item Value Reference Range Interpretation Comments Mean Corpuscular Volume (test code = 787-2) 84.3 81-99 [facility] NorthwestMean Corpuscular Aqjbqhloye5136-69-82 08:46:00* Test Item Value Reference Range Interpretation Comments Mean Corpuscular Hemoglobin (test code = 785-6) 25.6 28-32 L [facility] NorthwestMean Corpuscular Hemoglobin Concent 2019-01-06 08:46:00* Test Item Value Reference Range Interpretation Comments Mean Corpuscular Hemoglobin Concent (test code = 786-4) 30.4 31-35 L [facility] NorthwestRed Cell Distribution Tbweo6599-92-60 08:46:00* Test Item Value Reference Range Interpretation Comments Red Cell Distribution Width (test code = 47281-6) 20.2 11.7 -14.4 H [facility] NorthwestPlatelet Nbtko4951-27-95 08:46:00* Test Item Value Reference Range Interpretation Comments Platelet Count (test code = 777-3) 234 140-360 [facility] NorthwestNeutrophils (%) (Auto)2019-01-06 08:46:00 * Test Item Value Reference Range Interpretation Comments Neutrophils (%) (Auto) (test code = 49125-5) 41.8 38.7-80.0 [facility] NorthwestLymphocytes (%) (Auto)2019-01-06 08:46:00 * Test Item Value Reference Range Interpretation Comments Lymphocytes (%) (Auto) (test code = 736-9) 48.8 18.0-39.1 H [facility] NorthwestMonocytes (%) (Auto)2019-01-06 08:46:00* Test Item Value Reference Range Interpretation Comments Monocytes (%) (Auto) (test code = 5905-5) 6.5 4.4-11.3 [facility] NorthwestEosinophils (%) (Auto)2019-01-06 08:46:00 * Test Item Value Reference Range Interpretation Comments Eosinophils (%) (Auto) (test code = 713-8) 2.6 0.0-6.0 [facility] NorthwestBasophils (%) (Auto)2019-01-06 08:46:00* Test Item Value Reference Range Interpretation Comments Basophils (%) (Auto) (test code = 706-2) 0.3 0.0-1.0 [facility] NorthwestIM GRANULOCYTES %2019-01-06 08:46:00* Test Item Value Reference Range Interpretation Comments IM GRANULOCYTES % (test code = IM GRANULOCYTES %) 0.0 0.0- 1.0 [facility] NorthwestNeutrophils # (Auto)2019-01-06 08:46:00* Test Item Value Reference Range Interpretation Comments Neutrophils # (Auto) (test code = 751-8) 2.4 2.1-6.9 [facility] NorthwestLymphocytes # (Auto)2019-01-06 08:46:00* Test Item Value Reference Range Interpretation Comments Lymphocytes # (Auto) (test code = 19178-4) 2.8 1.0-3.2 [facility] NorthwestMonocytes # (Auto)2019-01-06 08:46:00* Test Item Value Reference Range Interpretation Comments Monocytes # (Auto) (test code = 742-7) 0.4 0.2-0.8 [facility] NorthwestEosinophils # (Auto)2019-01-06 08:46:00* Test Item Value Reference Range Interpretation Comments Eosinophils # (Auto) (test code = 711-2) 0.2 0.0-0.4 [facility] NorthwestBasophils # (Auto)2019-01-06 08:46:00* Test Item Value Reference Range Interpretation Comments Basophils # (Auto) (test code = 704-7) 0.0 0.0-0.1 [facility] NorthwestAbsolute Immature Granulocyte (auto 2019-01-06 08:46:00* Test Item Value Reference Range Interpretation Comments Absolute Immature Granulocyte (auto (bella t code = Absolute Immature Granulocyte (auto) 0 0-0.1 [facility] NorthwestWhite Blood Boisz6328-09-48 08:46:00* Test Item Value Reference Range Interpretation Comments White Blood Count (test code = 6690-2) 5.82 4.8-10.8 [facility] NorthwestRed Blood Sodtm0380-31-31 08:46:00* Test Item Value Reference Range Interpretation Comments Red Blood Count (test code = 789-8) 3.32 3.6-5.1 L [facility] NorthwestHemoglobin2019-11-08 08:46:00* Test Item Value Reference Range Interpretation Comments Hemoglobin (test code = 58918-0) 8.5 12.0-16.0 L [facility] NorthwestHematocrit2019-11-08 08:46:00* Test Item Value Reference Range Interpretation Comments Hematocrit (test code = 4544-3) 28.0 34.2-44.1 L [facility] NorthwestMean Corpuscular Eaqmrs1265-78-61 08:46:00* Test Item Value Reference Range Interpretation Comments Mean Corpuscular Volume (test code = 787-2) 84.3 81-99 [facility] NorthwestMean Corpuscular Csjdfifjtf9494-44-11 08:46:00* Test Item Value Reference Range Interpretation Comments Mean Corpuscular Hemoglobin (test code = 785-6) 25.6 28-32 L [facility] NorthwestMean Corpuscular Hemoglobin Concent 2019-01-06 08:46:00* Test Item Value Reference Range Interpretation Comments Mean Corpuscular Hemoglobin Concent (test code = 786-4) 30.4 31-35 L [facility] NorthwestRed Cell Distribution Jrsto4574-02-11 08:46:00* Test Item Value Reference Range Interpretation Comments Red Cell Distribution Width (test code = 17609-1) 20.2 11.7 -14.4 H [facility] NorthwestPlatelet Godkh4602-80-49 08:46:00* Test Item Value Reference Range Interpretation Comments Platelet Count (test code = 777-3) 234 140-360 [facility] NorthwestNeutrophils (%) (Auto)2019-01-06 08:46:00 * Test Item Value Reference Range Interpretation Comments Neutrophils (%) (Auto) (test code = 31603-7) 41.8 38.7-80.0 [facility] NorthwestLymphocytes (%) (Auto)2019-01-06 08:46:00 * Test Item Value Reference Range Interpretation Comments Lymphocytes (%) (Auto) (test code = 736-9) 48.8 18.0-39.1 H [facility] NorthwestMonocytes (%) (Auto)2019-01-06 08:46:00* Test Item Value Reference Range Interpretation Comments Monocytes (%) (Auto) (test code = 5905-5) 6.5 4.4-11.3 [facility] NorthwestEosinophils (%) (Auto)2019-01-06 08:46:00 * Test Item Value Reference Range Interpretation Comments Eosinophils (%) (Auto) (test code = 713-8) 2.6 0.0-6.0 [facility] NorthwestBasophils (%) (Auto)2019-01-06 08:46:00* Test Item Value Reference Range Interpretation Comments Basophils (%) (Auto) (test code = 706-2) 0.3 0.0-1.0 [facility] NorthwestIM GRANULOCYTES %2019-01-06 08:46:00* Test Item Value Reference Range Interpretation Comments IM GRANULOCYTES % (test code = IM GRANULOCYTES %) 0.0 0.0- 1.0 [facility] NorthwestNeutrophils # (Auto)2019-01-06 08:46:00* Test Item Value Reference Range Interpretation Comments Neutrophils # (Auto) (test code = 751-8) 2.4 2.1-6.9 [facility] NorthwestLymphocytes # (Auto)2019-01-06 08:46:00* Test Item Value Reference Range Interpretation Comments Lymphocytes # (Auto) (test code = 13904-0) 2.8 1.0-3.2 [facility] NorthwestMonocytes # (Auto)2019-01-06 08:46:00* Test Item Value Reference Range Interpretation Comments Monocytes # (Auto) (test code = 742-7) 0.4 0.2-0.8 [facility] NorthwestEosinophils # (Auto)2019-01-06 08:46:00* Test Item Value Reference Range Interpretation Comments Eosinophils # (Auto) (test code = 711-2) 0.2 0.0-0.4 [facility] NorthwestBasophils # (Auto)2019-01-06 08:46:00* Test Item Value Reference Range Interpretation Comments Basophils # (Auto) (test code = 704-7) 0.0 0.0-0.1 [facility] NorthwestAbsolute Immature Granulocyte (auto 2019-01-06 08:46:00* Test Item Value Reference Range Interpretation Comments Absolute Immature Granulocyte (auto (bella t code = Absolute Immature Granulocyte (auto) 0 0-0.1 [facility] NorthwestUrine opiates screening xidd6122-12-57 08:22:00* Test Item Value Reference Range Interpretation Comments Urine Opiates Screen (test code = 00190-7) POSITIVE NEGATIVE ALL TESTS PERFORMED MANUALLY ON [employer] TOX/SEE TEST This test provides only a sc reen. Positive results should be repeated by a confirmatory test.[facility] NorthwestBarbiturates screen, doase4040-50-89 08:22:00* Test Item Value Reference Range Interpretation Comments Urine Barbiturates Screen (test code = 305005801) NEGATIVE NEGA TIVE [facility] NorthwestUrine phencyclidine detection by screening keyutd5687-74-63 08:22:00* Test Item Value Reference Range Interpretation Comments Urine Phencyclidine Screen (test code = 46949-7) NEGATIVE NEGAT WILIAM [facility] NorthwestUrine amphetamines detection by screen method > 1000 ng/sA2038-64-38 08:22:00* Test Item Value Reference Range Interpretation Comments Urine Amphetamines Screen (test code = 19386-4) NEGATIVE NEGATI VE [facility] NorthwestFluoroscopic procedure less than one hour orvwgawa9678-60-14 08:22:00* Test Item Value Reference Range Interpretation Comments Urine Methamphetamines Screen (test code = Urine Metha mphetamines Screen) NEGATIVE NEGATIVE [facility] NorthwestUrine benzodiazepines detection by screening gtrwmo8451-50-82 08:22:00* Test Item Value Reference Range Interpretation Comments Urine Benzodiazepines Screen (test code = 16432-3) POSITIVE NEG ATIVE This test provides only a screen. Positive results should be repeated by a confi rmatory test.[facility] NorthwestUrine cocaine measurement (mass/volume)2019-01-06 08:22:00* Test Item Value Reference Range Interpretation Comments Urine Cocaine Screen (test code = 3398-5) NEGATIVE NEGATIVE [facility] NorthwestUrine cannabinoids detection by screening sfnsxo8968-10-36 08:22:00* Test Item Value Reference Range Interpretation Comments Urine Cannabinoids Screen (test code = 60640-8) POSITIVE NEGATI VE THESE RESULTS ARE FOR MEDICAL TREATMENT ONLYTHIS REPORT CONTAINS UNCONFIR MED SCREENING RESULTS*POSITIVE RESULTS WILL BE CONFIRMED BY REFERENCE LAB UPON R EQUEST CUT-OFFDRUG CLASS CONCENTRATION ng/mLAmphetamines 1000Methamphetamines 1000Cocaine 300Opiate 300Phencyc lidine 25Cannabinoid 50Barbiturates 300Benzodiazepine 300Methadone 300 This test p rovides only a screen. Positive results should be repeated by a confirmatory bella t.[facility] NorthwestUrine methadone ctvyiq0823-40-87 08:22:00* Test Item Value Reference Range Interpretation Comments Urine Methadone Screen (test code = 76808-0) NEGATIVE NEGATIVE THESE RESULTS ARE FOR MEDICAL TREATMENT ONLYTHIS REPORT CONTAINS UNCONFIR MED SCREENING RESULTS*POSITIVE RESULTS WILL BE CONFIRMED BY REFERENCE LAB UPON R EQUEST CUT-OFFDRUG CLASS CONCENTRATION ng/mLAmphetamines 1000Methamphetamines 1000Cocaine Metabolite 300Opiate 300Phencyc lidine 25Cannabinoid 50Barbiturates 300Benzodiazepine 300Methadone 300[facility] ekbj8777-50-24 08:22:00* Test Item Value Reference Range Interpretation Comments Urine Opiates Screen (test code = 33909-1) POSITIVE NEGATIVE ALL TESTS PERFORMED MANUALLY ON [employer] TOX/SEE TEST This test provides only a sc reen. Positive results should be repeated by a confirmatory test.[facility] NorthwestBarbiturates screen, pooqn3149-84-32 08:22:00* Test Item Value Reference Range Interpretation Comments Urine Barbiturates Screen (test code = 088371059) NEGATIVE NEGA TIVE [facility] NorthwestUrine phencyclidine detection by screening opqaot2102-57-36 08:22:00* Test Item Value Reference Range Interpretation Comments Urine Phencyclidine Screen (test code = 59984-2) NEGATIVE NEGAT WILIAM [facility] NorthwestUrine amphetamines detection by screen method > 1000 ng/zB6513-47-92 08:22:00* Test Item Value Reference Range Interpretation Comments Urine Amphetamines Screen (test code = 46984-5) NEGATIVE NEGATI VE [facility] NorthwestFluoroscopic procedure less than one hour trywlsuy6414-54-62 08:22:00* Test Item Value Reference Range Interpretation Comments Urine Methamphetamines Screen (test code = Urine Metha mphetamines Screen) NEGATIVE NEGATIVE [facility] NorthwestUrine benzodiazepines detection by screening lpboft5442-99-25 08:22:00* Test Item Value Reference Range Interpretation Comments Urine Benzodiazepines Screen (test code = 49507-9) POSITIVE NEG ATIVE This test provides only a screen. Positive results should be repeated by a confi rmatory test.[facility] NorthwestUrine cocaine measurement (mass/volume)2019-01-06 08:22:00* Test Item Value Reference Range Interpretation Comments Urine Cocaine Screen (test code = 3398-5) NEGATIVE NEGATIVE [facility] NorthwestUrine cannabinoids detection by screening wlolvf5486-71-47 08:22:00* Test Item Value Reference Range Interpretation Comments Urine Cannabinoids Screen (test code = 69282-4) POSITIVE NEGATI VE THESE RESULTS ARE FOR MEDICAL TREATMENT ONLYTHIS REPORT CONTAINS UNCONFIR MED SCREENING RESULTS*POSITIVE RESULTS WILL BE CONFIRMED BY REFERENCE LAB UPON R EQUEST CUT-OFFDRUG CLASS CONCENTRATION ng/mLAmphetamines 1000Methamphetamines 1000Cocaine 300Opiate 300Phencyc lidine 25Cannabinoid 50Barbiturates 300Benzodiazepine 300Methadone 300 This test p rovides only a screen. Positive results should be repeated by a confirmatory bella t.[facility] NorthwestUrine methadone rolnyn0152-61-30 08:22:00* Test Item Value Reference Range Interpretation Comments Urine Methadone Screen (test code = 79808-4) NEGATIVE NEGATIVE THESE RESULTS ARE FOR MEDICAL TREATMENT ONLYTHIS REPORT CONTAINS UNCONFIR MED SCREENING RESULTS*POSITIVE RESULTS WILL BE CONFIRMED BY REFERENCE LAB UPON R EQUEST CUT-OFFDRUG CLASS CONCENTRATION ng/mLAmphetamines 1000Methamphetamines 1000Cocaine Metabolite 300Opiate 300Phencyc lidine 25Cannabinoid 50Barbiturates 300Benzodiazepine 300Methadone 300[facility] NorthwestBlood leukocytes automated count (number/volume) 2019-01-06 06:55:00* Test Item Value Reference Range Interpretation Comments White Blood Count (test code = 6690-2) 5.82 4.8-10.8 [facility] NorthwestBlood erythrocytes automated count (number/volume)2019-01-06 06:55:00* Test Item Value Reference Range Interpretation Comments Red Blood Count (test code = 789-8) 3.32 3.6-5.1 [facility] NorthwestBlood hemoglobin measurement (moles/volume)2019-01-06 06:55:00* Test Item Value Reference Range Interpretation Comments Hemoglobin (test code = 07578-4) 8.5 12.0-16.0 [facility] NorthwestAutomated blood hematocrit (volume fraction)2019-01-06 06:55:00* Test Item Value Reference Range Interpretation Comments Hematocrit (test code = 4544-3) 28.0 34.2-44.1 [facility] NorthwestAutomated erythrocyte mean corpuscular zeftgm2108-36-70 06:55:00* Test Item Value Reference Range Interpretation Comments Mean Corpuscular Volume (test code = 787-2) 84.3 81-99 [facility] NorthwestAutomated erythrocyte mean corpuscular hemoglobin (mass per erythrocyte)2019-01-06 06:55:00* Test Item Value Reference Range Interpretation Comments Mean Corpuscular Hemoglobin (test code = 785-6) 25.6 28-32 [facility] NorthwestAutomated erythrocyte mean corpuscular hemoglobin concentration measurement (mass/volume)2019-01-06 06:55:00* Test Item Value Reference Range Interpretation Comments Mean Corpuscular Hemoglobin Concent (test code = 786-4) 30.4 31-35 [facility] NorthwestRDW DbrNu-Nru4024-22-08 06:55:00* Test Item Value Reference Range Interpretation Comments Red Cell Distribution Width (test code = 15038-1) 20.2 11.7 -14.4 [facility] NorthwestAutatrium health kings mountained blood platelet count (count/volume)2019-01-06 06:55:00* Test Item Value Reference Range Interpretation Comments Platelet Count (test code = 777-3) 234 140-360 [facility] NorthwestAutomated blood segmented neutrophil count as percentage of total jvfmmzzekj1050-65-76 06:55:00* Test Item Value Reference Range Interpretation Comments Neutrophils (%) (Auto) (test code = 62240-0) 41.8 38.7-80.0 [facility] NorthwestAutomated blood lymphocyte count as percentage ot total bpwhdugure2572-46-59 06:55:00* Test Item Value Reference Range Interpretation Comments Lymphocytes (%) (Auto) (test code = 736-9) 48.8 18.0-39.1 [facility] NorthwestAutomated blood monocyte count as percentage of total sygahrdwwx6930-87-34 06:55:00* Test Item Value Reference Range Interpretation Comments Monocytes (%) (Auto) (test code = 5905-5) 6.5 4.4-11.3 [facility] NorthwestAutomated blood eosinophil count as percentage of total pmdgmfjypa6179-23-07 06:55:00* Test Item Value Reference Range Interpretation Comments Eosinophils (%) (Auto) (test code = 713-8) 2.6 0.0-6.0 [facility] NorthwestAutomated blood basophil count as percentage of total nitllaapyx8437-88-76 06:55:00* Test Item Value Reference Range Interpretation Comments Basophils (%) (Auto) (test code = 706-2) 0.3 0.0-1.0 [facility] NorthwestFluoroscopic procedure less than one hour piuaffpw9641-07-09 06:55:00* Test Item Value Reference Range Interpretation Comments IM GRANULOCYTES % (test code = IM GRANULOCYTES %) 0.0 0.0- 1.0 [facility] NorthwestAutomated blood neutrophil count 2019-01-06 06:55:00* Test Item Value Reference Range Interpretation Comments Neutrophils # (Auto) (test code = 751-8) 2.4 2.1-6.9 [facility] NorthwestBlood lymphocytes count (number/volume) 2019-01-06 06:55:00* Test Item Value Reference Range Interpretation Comments Lymphocytes # (Auto) (test code = 16598-1) 2.8 1.0-3.2 [facility] NorthwestBlood monocytes automated count (number/volume)2019-01-06 06:55:00* Test Item Value Reference Range Interpretation Comments Monocytes # (Auto) (test code = 742-7) 0.4 0.2-0.8 [facility] NorthwestAutomated blood eosinophil count 2019-01-06 06:55:00* Test Item Value Reference Range Interpretation Comments Eosinophils # (Auto) (test code = 711-2) 0.2 0.0-0.4 [facility] NorthwestAutomated blood basophil count (count/volume)2019-01-06 06:55:00* Test Item Value Reference Range Interpretation Comments Basophils # (Auto) (test code = 704-7) 0.0 0.0-0.1 [facility] NorthwestFluoroscopic procedure less than one hour altlgfmh2566-59-70 06:55:00* Test Item Value Reference Range Interpretation Comments Absolute Immature Granulocyte (auto (bella t code = Absolute Immature Granulocyte (auto) 0 0-0.1 [facility] or plasma sodium measurement (moles/volume)2019-01-06 06:55:00* Test Item Value Reference Range Interpretation Comments Sodium Level (test code = 2951-2) 137 136-145 [facility] Heightser[facility] or plasma potassium measurement (moles/volume)2019-01-06 06:55:00* Test Item Value Reference Range Interpretation Comments Potassium Level (test code = 2823-3) 3.4 3.5-5.1 [facility] Heightser[facility] or plasma chloride measurement (moles/volume)2019-01-06 06:55:00* Test Item Value Reference Range Interpretation Comments Chloride Level (test code = 2075-0) 105 98-107 [facility] Heightserum or plasma carbon dioxide, total measurement (moles/volume)2019-01-06 06:55:00* Test Item Value Reference Range Interpretation Comments Carbon Dioxide Level (test code = 2028-9) 27 22-29 [facility] Heightser[facility] or plasma anion rgf6790-60-51 06:55:00* Test Item Value Reference Range Interpretation Comments Anion Gap (test code = 92519-7) 8.4 8-16 [facility] Heightser[facility] or plasma urea nitrogen measurement (mass/volume)2019-01-06 06:55:00* Test Item Value Reference Range Interpretation Comments Blood Urea Nitrogen (test code = 3094-0) 5 7-26 [facility] Heightser[facility] or plasma creatinine measurement (mass/volume)2019-01-06 06:55:00* Test Item Value Reference Range Interpretation Comments Creatinine (test code = 2160-0) 0.58 0.57-1.11 [facility] Heightser[facility] or plasma urea nitrogen/creatinine mass yyhdf9942-07-18 06:55:00* Test Item Value Reference Range Interpretation Comments BUN/Creatinine Ratio (test code = 3097-3) 9 6-25 [facility] NorthwestEstimated glomerular filtration rate (GFR) ngjgdafmpcgln4886-27-74 06:55:00* Test Item Value Reference Range Interpretation Comments Estimat Glomerular Filtration Rate (test code = 393443983) > 60 >60 Ranges were taken from the National Kidney Disease Education Program and the [facility] literature.Reference ranges:60 or greater: Ldjggr38-75 ( for 3 consecutive months): Chronic kidney disease 15 or less: Kidney failureHCA [facility] Healthcare NorthwestGlucose rzcdwrpbwgz1860-40-13 06:55:00* Test Item Value Reference Range Interpretation Comments Glucose Level (test code = UMW6847) 75 74-118 [facility] Heightser[facility] or plasma calcium measurement (mass/volume)2019-01-06 06:55:00* Test Item Value Reference Range Interpretation Comments Calcium Level (test code = 49957-4) 8.8 8.4-10.2 [facility] NorthwestFluoroscopic procedure less than one hour dnkfqxdv5152-11-23 06:55:00* Test Item Value Reference Range Interpretation Comments Hemoglobin A1c Percent (test code = Hemoglobin A1c Percent) 5.0 4.0-7.0 [facility] Heightser[facility] or plasma triglyceride measurement (mass/volume)2019-01-06 06:55:00* Test Item Value Reference Range Interpretation Comments Triglycerides Level (test code = 2571-8) 56 0-149 [facility] Heightserum or plasma cholesterol measurement (mass/volume)2019-01-06 06:55:00* Test Item Value Reference Range Interpretation Comments Cholesterol Level (test code = 2093-3) 147 0-199 Less than 200 mg/dL Low Xocs519 - 239 mg/dL Borderline Xgtj319 m g/dl and greater High Risk [facility] Heightser[facility] or plasma cholesterol in LDL measurement (mass/volume) 2019-01-06 06:55:00* Test Item Value Reference Range Interpretation Comments LDL Cholesterol (test code = 2089-1) 90 60-130 [facility] Heightser[facility] or plasma cholesterol in HDL measurement (mass/volume)2019-01-06 06:55:00* Test Item Value Reference Range Interpretation Comments HDL Cholesterol (test code = 2085-9) 46 40-60 [facility] Heightser[facility] or plasma total cholesterol/cholesterol in HDL mass wroou1145-28-10 06:55:00* Test Item Value Reference Range Interpretation Comments Cholesterol/HDL Ratio (test code = 9830-1) 3.2 3.0-3.6 [facility] NorthwestBlood leukocytes automated count (number/volume)2019-01-06 06:55:00* Test Item Value Reference Range Interpretation Comments White Blood Count (test code = 6690-2) 5.82 4.8-10.8 [facility] NorthwestBlood erythrocytes automated count (number/volume)2019-01-06 06:55:00* Test Item Value Reference Range Interpretation Comments Red Blood Count (test code = 789-8) 3.32 3.6-5.1 [facility] NorthwestBlood hemoglobin measurement (moles/volume)2019-01-06 06:55:00* Test Item Value Reference Range Interpretation Comments Hemoglobin (test code = 05472-9) 8.5 12.0-16.0 [facility] NorthwestAutomated blood hematocrit (volume fraction)2019-01-06 06:55:00* Test Item Value Reference Range Interpretation Comments Hematocrit (test code = 4544-3) 28.0 34.2-44.1 [facility] NorthwestAutomated erythrocyte mean corpuscular jejdlt2635-22-88 06:55:00* Test Item Value Reference Range Interpretation Comments Mean Corpuscular Volume (test code = 787-2) 84.3 81-99 [facility] NorthwestAutomated erythrocyte mean corpuscular hemoglobin (mass per erythrocyte)2019-01-06 06:55:00* Test Item Value Reference Range Interpretation Comments Mean Corpuscular Hemoglobin (test code = 785-6) 25.6 28-32 [facility] NorthwestAutomated erythrocyte mean corpuscular hemoglobin concentration measurement (mass/volume)2019-01-06 06:55:00* Test Item Value Reference Range Interpretation Comments Mean Corpuscular Hemoglobin Concent (test code = 786-4) 30.4 31-35 [facility] NorthwestRDW PlbKf-Hth6959-19-08 06:55:00* Test Item Value Reference Range Interpretation Comments Red Cell Distribution Width (test code = 00946-9) 20.2 11.7 -14.4 [facility] NorthwestAutomated blood platelet count (count/volume)2019-01-06 06:55:00* Test Item Value Reference Range Interpretation Comments Platelet Count (test code = 777-3) 234 140-360 [facility] NorthwestAutomated blood segmented neutrophil count as percentage of total clrpzcngxl2124-41-62 06:55:00* Test Item Value Reference Range Interpretation Comments Neutrophils (%) (Auto) (test code = 70966-1) 41.8 38.7-80.0 [facility] NorthwestAutomated blood lymphocyte count as percentage ot total ialjiyavht7139-75-44 06:55:00* Test Item Value Reference Range Interpretation Comments Lymphocytes (%) (Auto) (test code = 736-9) 48.8 18.0-39.1 [facility] NorthwestAutomated blood monocyte count as percentage of total dvprsdpmsg2599-83-51 06:55:00* Test Item Value Reference Range Interpretation Comments Monocytes (%) (Auto) (test code = 5905-5) 6.5 4.4-11.3 [facility] NorthwestAutomated blood eosinophil count as percentage of total cncicjjdnp1135-01-25 06:55:00* Test Item Value Reference Range Interpretation Comments Eosinophils (%) (Auto) (test code = 713-8) 2.6 0.0-6.0 [facility] NorthwestAutomated blood basophil count as percentage of total wcjhkevadb4776-29-77 06:55:00* Test Item Value Reference Range Interpretation Comments Basophils (%) (Auto) (test code = 706-2) 0.3 0.0-1.0 [facility] NorthwestFluoroscopic procedure less than one hour dbbjfoev8669-58-92 06:55:00* Test Item Value Reference Range Interpretation Comments IM GRANULOCYTES % (test code = IM GRANULOCYTES %) 0.0 0.0- 1.0 [facility] NorthwestAutomated blood neutrophil count 2019-01-06 06:55:00* Test Item Value Reference Range Interpretation Comments Neutrophils # (Auto) (test code = 751-8) 2.4 2.1-6.9 [facility] NorthwestBlood lymphocytes count (number/volume) 2019-01-06 06:55:00* Test Item Value Reference Range Interpretation Comments Lymphocytes # (Auto) (test code = 83646-7) 2.8 1.0-3.2 [facility] monocytes automated count (number/volume)2019-01-06 06:55:00* Test Item Value Reference Range Interpretation Comments Monocytes # (Auto) (test code = 742-7) 0.4 0.2-0.8 [facility] NorthwestAutomated blood eosinophil count 2019-01-06 06:55:00* Test Item Value Reference Range Interpretation Comments Eosinophils # (Auto) (test code = 711-2) 0.2 0.0-0.4 [facility] NorthwestAutomated blood basophil count (count/volume)2019-01-06 06:55:00* Test Item Value Reference Range Interpretation Comments Basophils # (Auto) (test code = 704-7) 0.0 0.0-0.1 [facility] NorthwestFluoroscopic procedure less than one hour [id number] 06:55:00* Test Item Value Reference Range Interpretation Comments Absolute Immature Granulocyte (auto (bella t code = Absolute Immature Granulocyte (auto) 0 0-0.1 [facility] sodium [facility] (moles/volume)2019-01-06 06:55:00* Test Item Value Reference Range Interpretation Comments Sodium Level (test code = 2951-2) 137 136-145 [facility] potassium measurement (moles/volume)2019-01-06 06:55:00* Test Item Value Reference Range Interpretation Comments Potassium Level (test code = 2823-3) 3.4 3.5-5.1 [facility] chloride measurement (moles/volume)2019-01-06 06:55:00* Test Item Value Reference Range Interpretation Comments Chloride Level (test code = 2075-0) 105 98-107 [facility] carbon dioxide, total measurement (moles/volume)2019-01-06 06:55:00* Test Item Value Reference Range Interpretation Comments Carbon Dioxide Level (test code = 2028-9) 27 22-29 [facility] anion [id number] 06:55:00* Test Item Value Reference Range Interpretation Comments Anion Gap (test code = 20416-1) 8.4 8-16 [facility] urea nitrogen measurement (mass/volume)2019-01-06 06:55:00* Test Item Value Reference Range Interpretation Comments Blood Urea Nitrogen (test code = 3094-0) 5 7-26 [facility] creatinine measurement (mass/volume)2019-01-06 06:55:00* Test Item Value Reference Range Interpretation Comments Creatinine (test code = 2160-0) 0.58 0.57-1.11 [facility] urea nitrogen/creatinine mass [id number] 06:55:00* Test Item Value Reference Range Interpretation Comments BUN/Creatinine Ratio (test code = 3097-3) 9 6-25 [facility] glomerular filtration rate (GFR) mtenzhhoborxt1812-88-03 06:55:00* Test Item Value Reference Range Interpretation Comments Estimat Glomerular Filtration Rate (test code = 231524739) > 60 >60 Ranges were taken from the National Kidney Disease Education Program and the [facility] [employer] literature.Reference ranges:60 or greater: Dpgwzx01-07 ( for 3 consecutive months): Chronic kidney disease 15 or less: Kidney failureH[facility] Healthcare NorthwestGlucose evwugqaewzw4833-66-98 06:55:00* Test Item Value Reference Range Interpretation Comments Glucose Level (test code = VXA1746) 75 74-118 [facility] calcium measurement (mass/volume)2019-01-06 06:55:00* Test Item Value Reference Range Interpretation Comments Calcium Level (test code = 01282-1) 8.8 8.4-10.2 [facility] NorthwestFluoroscopic procedure less than one hour qigaphxa0009-11-27 06:55:00* Test Item Value Reference Range Interpretation Comments Hemoglobin A1c Percent (test code = Hemoglobin A1c Percent) 5.0 4.0-7.0 [facility] triglyceride measurement (mass/volume)2019-01-06 06:55:00* Test Item Value Reference Range Interpretation Comments Triglycerides Level (test code = 2571-8) 56 0-149 [facility] cholesterol measurement (mass/volume)2019-01-06 06:55:00* Test Item Value Reference Range Interpretation Comments Cholesterol Level (test code = 2093-3) 147 0-199 Less than 200 mg/dL Low Exng967 - 239 mg/dL Borderline Fhjb417 m g/dl and greater High Risk [facility] cholesterol in LDL measurement (mass/volume) 2019-01-06 06:55:00* Test Item Value Reference Range Interpretation Comments LDL Cholesterol (test code = 2089-1) 90 60-130 [facility] cholesterol in HDL measurement (mass/volume)2019-01-06 06:55:00* Test Item Value Reference Range Interpretation Comments HDL Cholesterol (test code = 2085-9) 46 40-60 [facility] total cholesterol/cholesterol in HDL mass cmgsc8433-65-22 06:55:00* Test Item Value Reference Range Interpretation Comments Cholesterol/HDL Ratio (test code = 9830-1) 3.2 3.0-3.6 [facility] NorthwestCT ABD/PEL WO IANWSBRV-[id number] 10:12:00 [facility] [address] [address] Patient Name: HOLLEY GAYLE MR #: [id number] : 1990 Age/Sex: 28/F Req #: [id number] Adm Physician: Ordered by: ADRIANA BRIGHT MD Report #: [id number] Location: [facility] Room/Bed: Procedure: [id number] HO PD/CT ABD/PEL WO CONTRAST-HOPD Exam Date: 01/05/19 E xam Time: 1007 REPORT STATUS: Richard d CT of the abdomen and pelvis, [...] exam. No evidence of nephrolithiasis. Signed by: Raman benjamin on 01/05/2019 10:19 AM Dictated By: RAMAN LIRA MD Electronically S igned By: RAMAN LIRA MD on 01/05/19 1019 Transcribed By: QUENTIN on 01/05/19 1019 COPY TO: ADRIANA BRIGHT MD COMPREHENSIVE METABOLIC [id number] 19:10:00* Test Item Value Reference Range Interpretation Comments SODIUM (test code = NA) 139 mEq/L 134-147 N POTASSIUM (test code = K) 3.1 mEq/L 3.4-5.0 L CHLORIDE (test code = CL) 106 mEq/L 100-108 N CARBON DIOXIDE (test code = CO2) 28 mEq/L 21-33 N ANION GAP (test code = GAP) 8 0-20 N GLUCOSE (test code = GLU) 96 mg/dL 70-110 N BLOOD UREA NITROGEN (test code = BUN) 4 mg/dL 7-18 L GLOMERULAR FILTRATION RATE (test code = GFR) 117.4 105-110 H Units of measure = ml/min/1.73 m2 CREATININE (test code = CREAT) 0.6 mg/dL 0.6-1.3 N TOTAL PROTEIN (test code = PROT) 7.7 g/dL 6.4-8.2 N ALBUMIN (test code = ALB) 4.10 g/dL 3.4-5.0 N CALCIUM (test code = CA) 9.2 mg/dL 8.0-10.5 N BILIRUBIN TOTAL (test code = BILT) 0.5 MG/DL <1.5 N SGOT/AST (test code = AST) 18 IUnit/L 15-37 N SGPT/ALT (test code = ALT) 28 IUnit/L 15-65 N ALKALINE PHOSPHATASE TOTAL (test code = ALKP) 88 IUnit/L 20-125 N [id number] 19:10:00* Test Item Value Reference Range Interpretation Comments LIPASE (test code = LIP) 56 IUnit/L 73-393 L COMPREHENSIVE METABOLIC [id number] 19:07:00* Test Item Value Reference Range Interpretation Comments SODIUM (test code = NA) 139 mEq/L 134-147 N POTASSIUM (test code = K) 3.1 mEq/L 3.4-5.0 L CHLORIDE (test code = CL) 106 mEq/L 100-108 N CARBON DIOXIDE (test code = CO2) 28 mEq/L 21-33 N ANION GAP (test code = GAP) 8 0-20 N GLUCOSE (test code = GLU) 96 mg/dL 70-110 N BLOOD UREA NITROGEN (test code = BUN) 4 mg/dL 7-18 L GLOMERULAR FILTRATION RATE (test code = GFR) 105-110 CREATININE (test code = CREAT) mg/dL 0.6-1.3 TOTAL PROTEIN (test code = PROT) g/dL 6.4-8.2 ALBUMIN (test code = ALB) g/dL 3.4-5.0 CALCIUM (test code = CA) 9.2 mg/dL 8.0-10.5 N BILIRUBIN TOTAL (test code = BILT) MG/DL <1.5 SGOT/AST (test code = AST) IUnit/L 15-37 SGPT/ALT (test code = ALT) IUnit/L 15-65 ALKALINE PHOSPHATASE TOTAL (test code = ALKP) IUnit/L 20-125 [id number] 19:07:00* Test Item Value Reference Range Interpretation Comments LIPASE (test code = LIP) 56 IUnit/L 73-393 L CBC W/AUTO [id number] 18:57:00* Test Item Value Reference Range Interpretation Comments WHITE BLOOD CELL (test code = WBC) 5.22 x10 3/uL 4.5-11.0 N RED BLOOD CELL (test code = RBC) 3.67 x10 6/uL 3.54-5.02 N HEMOGLOBIN (test code = HGB) 9.5 g/dL 11.0-15.0 L HEMATOCRIT (test code = HCT) 30.2 % 33.0-45.0 L MEAN CELL VOLUME (test code = MCV) 82.3 fL 81.0-99.0 N MEAN CELL HGB (test code = MCH) 25.9 pg 27.0-33.0 L MEAN CELL HGB CONCETRATION (test code = MCHC) 31.5 g/dL 33.0-37. 0 L RED CELL DISTRIBUTION WIDTH CV (test code = RDW) 19.5 % 11.5- 14.5 H RED CELL DISTRIBUTION WIDTH SD (test code = RDW-SD) 58.0 fL 37 .0-54.0 H PLATELET COUNT (test code = PLT) 345 x10 3/uL 150-400 N MEAN PLATELET VOLUME (test code = MPV) 10.4 fL 7.0-9.0 H NEUTROPHIL % (test code = NT%) 64.6 % 56.0-77.0 N IMMATURE GRANULOCYTE % (test code = IG%) 0.4 % 0.0-2.0 N LYMPHOCYTE % (test code = LY%) 26.2 % 14.0-32.0 N MONOCYTE % (test code = MO%) 7.3 % 4.8-9.0 N EOSINOPHIL % (test code = EO%) 1.1 % 0.3-3.7 N BASOPHIL % (test code = BA%) 0.4 % 0.0-2.0 N NUCLEATED RBC % (test code = NRBC%) 0.0 % 0-0 N NEUTROPHIL # (test code = NT#) 3.37 x10 3/uL 2.0-7.6 N IMMATURE GRANULOCYTE # (test code = IG#) 0.02 x10 3/uL 0.00-0.03 N LYMPHOCYTE # (test code = LY#) 1.37 x10 3/uL 1.0-3.8 N MONOCYTE # (test code = MO#) 0.38 x10 3/uL 0.1-0.8 N EOSINOPHIL # (test code = EO#) 0.06 x10 3/uL 0.0-0.2 N BASOPHIL # (test code = BA#) 0.02 x10 3/uL 0.0-0.2 N NUCLEATED RBC # (test code = NRBC#) 0.00 x10 3/uL 0.0-0.1 N MANUAL DIFF REQUIRED (test code = MDIFF) NO RETIC COUNT (AUTOMATED)2018-11-24 09:07:00* Test Item Value Reference Range Interpretation Comments RETIC COUNT (AUTOMATED) (test code = RETICA) 1.2 % 0.3-2.3 N TOTAL IRON BINDING [id number] 08:49:00* Test Item Value Reference Range Interpretation Comments SERUM IRON (test code = IRON) 27 mcg/dL 35-150 L TOTAL IRON BINDING CAPACITY (test code = TIBC) 459 mcg/dL 260-445 H UIBC (test code = UIBC) 432 mcg/dL IRON SATURATION (test code = FESAT) 5.9 % 14-34 L VITAMIN [id number] 08:49:00* Test Item Value Reference Range Interpretation Comments VITAMIN B12 (test code = VITB12) 308 pg/mL 193-986 N [id number] 08:49:00* Test Item Value Reference Range Interpretation Comments FERRITIN (test code = NIKO) 4.4 ng/mL 11.0-306.8 L BASIC METABOLIC [id number] 05:52:00* Test Item Value Reference Range Interpretation Comments SODIUM (test code = NA) 136 mEq/L 134-147 N POTASSIUM (test code = K) 2.9 mEq/L 3.4-5.0 LL CHLORIDE (test code = CL) 101 mEq/L 100-108 N CARBON DIOXIDE (test code = CO2) 29 mEq/L 21-33 ANION GAP (test code = GAP) 9 0-20 N GLUCOSE (test code = GLU) 96 mg/dL 70-110 N BLOOD UREA NITROGEN (test code = BUN) 8 mg/dL 7-18 N GLOMERULAR FILTRATION RATE (test code = GFR) 117.4 105-110 H Units of measure = ml/min/1.73 m2 CREATININE (test code = CREAT) 0.6 mg/dL 0.6-1.3 N CALCIUM (test code = CA) 9.8 mg/dL 8.0-10.5 N CBC W/AUTO [id number] 05:32:00* Test Item Value Reference Range Interpretation Comments WHITE BLOOD CELL (test code = WBC) 7.93 x10 3/uL 4.5-11.0 N RED BLOOD CELL (test code = RBC) 3.88 x10 6/uL 3.54-5.02 N HEMOGLOBIN (test code = HGB) 9.8 g/dL 11.0-15.0 L HEMATOCRIT (test code = HCT) 31.2 % 33.0-45.0 L MEAN CELL VOLUME (test code = MCV) 80.4 fL 81.0-99.0 L MEAN CELL HGB (test code = MCH) 25.3 pg 27.0-33.0 L MEAN CELL HGB CONCETRATION (test code = MCHC) 31.4 g/dL 33.0-37. 0 L RED CELL DISTRIBUTION WIDTH CV (test code = RDW) 19.0 % 11.5- 14.5 H RED CELL DISTRIBUTION WIDTH SD (test code = RDW-SD) 54.7 fL 37 .0-54.0 H PLATELET COUNT (test code = PLT) 334 x10 3/uL 150-400 N MEAN PLATELET VOLUME (test code = MPV) 10.9 fL 7.0-9.0 H NEUTROPHIL % (test code = NT%) 74.4 % 56.0-77.0 N IMMATURE GRANULOCYTE % (test code = IG%) 0.3 % 0.0-2.0 N LYMPHOCYTE % (test code = LY%) 17.2 % 14.0-32.0 N MONOCYTE % (test code = MO%) 7.7 % 4.8-9.0 N EOSINOPHIL % (test code = EO%) 0.1 % 0.3-3.7 L BASOPHIL % (test code = BA%) 0.3 % 0.0-2.0 N NUCLEATED RBC % (test code = NRBC%) 0.0 % 0-0 N NEUTROPHIL # (test code = NT#) 5.91 x10 3/uL 2.0-7.6 N IMMATURE GRANULOCYTE # (test code = IG#) 0.02 x10 3/uL 0.00-0.03 N LYMPHOCYTE # (test code = LY#) 1.36 x10 3/uL 1.0-3.8 N MONOCYTE # (test code = MO#) 0.61 x10 3/uL 0.1-0.8 N EOSINOPHIL # (test code = EO#) 0.01 x10 3/uL 0.0-0.2 N BASOPHIL # (test code = BA#) 0.02 x10 3/uL 0.0-0.2 N NUCLEATED RBC # (test code = NRBC#) 0.00 x10 3/uL 0.0-0.1 N MANUAL DIFF REQUIRED (test code = MDIFF) NO DRUGS OF ABUSE SCREEN [id number] 18:49:00* Test Item Value Reference Range Interpretation Comments URN COCAINE (test code = COCAURN) NEGATIVE NEGATIVE URN CANNABINOIDS (test code = CANNABURN) POSITIVE NEGATIVE A URN AMPHETAMINE (test code = AMPHETURN) NEGATIVE NEGATIVE URN BARBITURATE (test code = BARBITURN) NEGATIVE NEGATIVE URN BENZODIAZEPINE (test code = BENZOURN) POSITIVE NEGATIVE A Cut-off value:200 ng/mL URN OPIATES (test code = OPIATURN) NEGATIVE NEGATIVE Cut-off value:2000 ng/mL URN PHENCYCLIDINE (PCP) (test code = PHENCURN) NEGATIVE NEGATIV E Cutoffs:Barbiturates 200 ng/mLBenzodiazepines 200 ng/mLTHC Cannabinoids 50 ng/mLOpiates(Morphine) 2000 ng/mLAmphetamine 1000 ng/mLCocaine 300 ng/mLPCP phencyclidine 25 ng/mL Unconfirmed screening results shouldnot be used for non-medical purposes. URINALYSIS [id number] 18:48:00* Test Item Value Reference Range Interpretation Comments UA COLOR (test code = COLU) YELLOW YEL/STRAW UA APPEARANCE (test code = APPU) CLOUDY CLEAR A UA GLUCOSE DIPSTICK (test code = DGLUU) 1+ NEGATIVE A UA BILIRUBIN DIPSTICK (test code = BILU) NEGATIVE NEGATIVE UA KETONE DIPSTICK (test code = KETU) TRACE NEGATIVE A UA SPECIFIC GRAVITY (test code = SGU) 1.050 1.005-1.030 H UA BLOOD DIPSTICK (test code = ZABRINA) NEGATIVE NEGATIVE UA PH DIPSTICK (test code = ROC) 9.0 5.0-7.0 H UA PROTEIN DIPSTICK (test code = PROU) 1+ NEGATIVE A UA UROBILINIOGEN DIPSTICK (test code = URO) 0.2 mg/dL 0.2-1.0 UA NITRITE DIPSTICK (test code = NURA) NEGATIVE NEGATIVE UA LEUKOCYTE ESTERASE DIPSTICK (test code = LEUU) NEGATIVE NEGA TIVE UA RBC (test code = RBCU) 11-20 RBC/HPF 0-3 UA WBC NO REFLEX (test code = WBCUCL) NONE SEEN WBC/HPF 0-3 UA BACTERIA (test code = BACU) 1+ /HPF NONE SEEN A UA SQUAMOUS CELLS (test code = SQU) 6-10 /HPF NONE SEEN A UA MUCUS (test code = MUCU) TRACE /LPF NONE SEEN COMMENTS: Clean CatchDRUGS OF ABUSE SCREEN [id number] 18:40:00* Test Item Value Reference Range Interpretation Comments URN COCAINE (test code = COCAURN) NEGATIVE NEGATIVE URN CANNABINOIDS (test code = CANNABURN) NEGATIVE URN AMPHETAMINE (test code = AMPHETURN) NEGATIVE NEGATIVE URN BARBITURATE (test code = BARBITURN) NEGATIVE NEGATIVE URN BENZODIAZEPINE (test code = BENZOURN) NEGATIVE URN OPIATES (test code = OPIATURN) NEGATIVE NEGATIVE Cut-off value:2000 ng/mL URN PHENCYCLIDINE (PCP) (test code = PHENCURN) NEGATIVE NEGATIV E Cutoffs:Barbiturates 200 ng/mLBenzodiazepines 200 ng/mLTHC Cannabinoids 50 ng/mLOpiates(Morphine) 2000 ng/mLAmphetamine 1000 ng/mLCocaine 300 ng/mLPCP phencyclidine 25 ng/mL Unconfirmed screening results shouldnot be used for non-medical purposes. - CT ABD PELVIS W/[id number] 16:45:00 Name: HOLLEY GAYLE [facility] : 1990 Age/S: 28 / F [address] [place] [address] Unit #: [id number] Loc: [place] [address] Phys: Kelli Conklin CEPHALOMETRIC TECHNICIAN Acct: [id number] Dis Date: Status: REG ER PHONE #: [phone] Exam Date: 11/22/2018 1615 FAX #: [phone] Reason: LLQ ABDOMINAL PAIN EXAMS: CPT CODE: [id number] CT ABD PELVIS W/CONT 69636 PROCEDURE: CT ABDOMEN AND PELVIS WITH CONTRAST [...] Signed Repor t (CONTINUED) Name: HOLLEY GAYLE [facility] [place] : 1990 Age/S: 28 / F [address] [place] [address] Unit #: [id number] Loc: [place] [address] Phys: Kelli Conklin Acct: [id number] Dis Date: Status: REG ER PHONE #: [phone] Exam Date: 11/22/2018 1615 FAX #: [phone] Reason: LLQ ABDOMINAL PAIN EXAMS: CPT C ODE: [id number] CT ABD PELVIS W/CONT 23294 <Continued> PERITONEUM: No free intraperitoneal fluid or [...] malignancy, no further workup is required. SL: [id number] at 1645 Reported and signed by: Adolfo Miller M.D. CC: Yoni Higgins DO; Kelli Conklin Technologist:Rosa Francisco RT(R)(CT) CTDI: DLP: Trnscb Date/Time: 11/22/2018 (1645) tRUTH ANN Orig Print D/T: S: 11/22/2018 (2118) PAGE 2 Signed Report COMPREHENSIVE METABOLIC PANEL 2018-11-22 14:49:00* Test Item Value Reference Range Interpretation Comments SODIUM (test code = NA) 136 mEq/L 134-147 N POTASSIUM (test code = K) 4.8 mEq/L 3.4-5.0 N CHLORIDE (test code = CL) 107 mEq/L 100-108 N CARBON DIOXIDE (test code = CO2) 23 mEq/L 21-33 N ANION GAP (test code = GAP) 11 0-20 N GLUCOSE (test code = GLU) 122 mg/dL 70-110 H BLOOD UREA NITROGEN (test code = BUN) 9 mg/dL 7-18 N GLOMERULAR FILTRATION RATE (test code = GFR) 98.3 105-110 L Units of measure = ml/min/1.73 m2 CREATININE (test code = CREAT) 0.7 mg/dL 0.6-1.3 N TOTAL PROTEIN (test code = PROT) 8.4 g/dL 6.4-8.2 H ALBUMIN (test code = ALB) 3.90 g/dL 3.4-5.0 N CALCIUM (test code = CA) 9.1 mg/dL 8.0-10.5 N BILIRUBIN TOTAL (test code = BILT) 0.4 MG/DL <1.5 N SGOT/AST (test code = AST) 39 IUnit/L 15-37 H SGPT/ALT (test code = ALT) 53 IUnit/L 15-65 N ALKALINE PHOSPHATASE TOTAL (test code = ALKP) 108 IUnit/L 20-125 N HEPATIC FUNCTION [id number] 14:49:00* Test Item Value Reference Range Interpretation Comments BILIRUBIN DIRECT (test code = BILD) < 0.10 MG/DL 0.0-0.30 N BILIRUBIN INDIRECT (test code = BILIND) 0.30 MG/DL [id number] 14:49:00* Test Item Value Reference Range Interpretation Comments LIPASE (test code = LIP) 36 IUnit/L 73-393 L HCG SERUM [id number] 14:49:00* Test Item Value Reference Range Interpretation Comments HCG SERUM QUAL (test code = HCGQL) SERUM NEGATIVE NEGATIVE [id number] 14:49:00* Test Item Value Reference Range Interpretation Comments TROPONIN-I (test code = TROPI) < 0.015 ng/mL 0.000-0.045 N Negative: <= 0.045 Positive: >= 0.046 Correlation with serial results, other cardiac markers andclinical findings is necessary to determine the clinicalsignificance of this result. Results using different methodologies should not be comparedto one another as quantitative results may vary by method. LACTIC [id number] 14:48:00* Test Item Value Reference Range Interpretation Comments LACTIC ACID (test code = LACT) 1.3 mmol/L 0.4-1.9 N COMPREHENSIVE METABOLIC [id number] 14:45:00* Test Item Value Reference Range Interpretation Comments SODIUM (test code = NA) 136 mEq/L 134-147 N POTASSIUM (test code = K) 4.8 mEq/L 3.4-5.0 N CHLORIDE (test code = CL) 107 mEq/L 100-108 N CARBON DIOXIDE (test code = CO2) mEq/L 21-33 ANION GAP (test code = GAP) 0-20 GLUCOSE (test code = GLU) mg/dL 70-110 BLOOD UREA NITROGEN (test code = BUN) mg/dL 7-18 GLOMERULAR FILTRATION RATE (test code = GFR) 105-110 CREATININE (test code = CREAT) mg/dL 0.6-1.3 TOTAL PROTEIN (test code = PROT) g/dL 6.4-8.2 ALBUMIN (test code = ALB) g/dL 3.4-5.0 CALCIUM (test code = CA) mg/dL 8.0-10.5 BILIRUBIN TOTAL (test code = BILT) MG/DL <1.5 SGOT/AST (test code = AST) IUnit/L 15-37 SGPT/ALT (test code = ALT) IUnit/L 15-65 ALKALINE PHOSPHATASE TOTAL (test code = ALKP) IUnit/L 20-125 HEPATIC FUNCTION [id number] 14:45:00* Test Item Value Reference Range Interpretation Comments BILIRUBIN DIRECT (test code = BILD) MG/DL 0.0-0.30 [id number] 14:45:00* Test Item Value Reference Range Interpretation Comments LIPASE (test code = LIP) IUnit/L 73-393 HCG SERUM [id number] 14:45:00* Test Item Value Reference Range Interpretation Comments HCG SERUM QUAL (test code = HCGQL) SERUM NEGATIVE NEGATIVE [id number] 14:45:00* Test Item Value Reference Range Interpretation Comments TROPONIN-I (test code = TROPI) ng/mL 0.000-0.045 COMPREHENSIVE METABOLIC [id number] 14:38:00* Test Item Value Reference Range Interpretation Comments SODIUM (test code = NA) 136 mEq/L 134-147 N POTASSIUM (test code = K) 4.8 mEq/L 3.4-5.0 N CHLORIDE (test code = CL) 107 mEq/L 100-108 N CARBON DIOXIDE (test code = CO2) mEq/L 21-33 ANION GAP (test code = GAP) 0-20 GLUCOSE (test code = GLU) mg/dL 70-110 BLOOD UREA NITROGEN (test code = BUN) mg/dL 7-18 GLOMERULAR FILTRATION RATE (test code = GFR) 105-110 CREATININE (test code = CREAT) mg/dL 0.6-1.3 TOTAL PROTEIN (test code = PROT) g/dL 6.4-8.2 ALBUMIN (test code = ALB) g/dL 3.4-5.0 CALCIUM (test code = CA) mg/dL 8.0-10.5 BILIRUBIN TOTAL (test code = BILT) MG/DL <1.5 SGOT/AST (test code = AST) IUnit/L 15-37 SGPT/ALT (test code = ALT) IUnit/L 15-65 ALKALINE PHOSPHATASE TOTAL (test code = ALKP) IUnit/L 20-125 HEPATIC FUNCTION [id number] 14:38:00* Test Item Value Reference Range Interpretation Comments BILIRUBIN DIRECT (test code = BILD) MG/DL 0.0-0.30 [id number] 14:38:00* Test Item Value Reference Range Interpretation Comments LIPASE (test code = LIP) IUnit/L 73-393 HCG SERUM [id number] 14:38:00* Test Item Value Reference Range Interpretation Comments HCG SERUM QUAL (test code = HCGQL) NEGATIVE [id number] 14:38:00* Test Item Value Reference Range Interpretation Comments TROPONIN-I (test code = TROPI) ng/mL 0.000-0.045 CBC W/AUTO [id number] 11:51:00* Test Item Value Reference Range Interpretation Comments WHITE BLOOD CELL (test code = WBC) 8.77 x10 3/uL 4.5-11.0 N RED BLOOD CELL (test code = RBC) 3.94 x10 6/uL 3.54-5.02 N HEMOGLOBIN (test code = HGB) 9.9 g/dL 11.0-15.0 L HEMATOCRIT (test code = HCT) 32.4 % 33.0-45.0 L MEAN CELL VOLUME (test code = MCV) 82.2 fL 81.0-99.0 N MEAN CELL HGB (test code = MCH) 25.1 pg 27.0-33.0 L MEAN CELL HGB CONCETRATION (test code = MCHC) 30.6 g/dL 33.0-37. 0 L RED CELL DISTRIBUTION WIDTH CV (test code = RDW) 19.1 % 11.5- 14.5 H RED CELL DISTRIBUTION WIDTH SD (test code = RDW-SD) 57.3 fL 37 .0-54.0 H PLATELET COUNT (test code = PLT) 352 x10 3/uL 150-400 N MEAN PLATELET VOLUME (test code = MPV) 11.3 fL 7.0-9.0 H NEUTROPHIL % (test code = NT%) 88.4 % 56.0-77.0 H IMMATURE GRANULOCYTE % (test code = IG%) 0.2 % 0.0-2.0 N LYMPHOCYTE % (test code = LY%) 8.6 % 14.0-32.0 L MONOCYTE % (test code = MO%) 2.4 % 4.8-9.0 L EOSINOPHIL % (test code = EO%) 0.1 % 0.3-3.7 L BASOPHIL % (test code = BA%) 0.3 % 0.0-2.0 N NUCLEATED RBC % (test code = NRBC%) 0.0 % 0-0 N NEUTROPHIL # (test code = NT#) 7.75 x10 3/uL 2.0-7.6 H IMMATURE GRANULOCYTE # (test code = IG#) 0.02 x10 3/uL 0.00-0.03 N LYMPHOCYTE # (test code = LY#) 0.75 x10 3/uL 1.0-3.8 L MONOCYTE # (test code = MO#) 0.21 x10 3/uL 0.1-0.8 N EOSINOPHIL # (test code = EO#) 0.01 x10 3/uL 0.0-0.2 N BASOPHIL # (test code = BA#) 0.03 x10 3/uL 0.0-0.2 N NUCLEATED RBC # (test code = NRBC#) 0.00 x10 3/uL 0.0-0.1 N MANUAL DIFF REQUIRED (test code = MDIFF) NO DRUGS OF ABUSE SCREEN [id number] 08:56:00* Test Item Value Reference Range Interpretation Comments URN COCAINE (test code = COCAURN) NEGATIVE NEGATIVE URN CANNABINOIDS (test code = CANNABURN) POSITIVE NEGATIVE A URN AMPHETAMINE (test code = AMPHETURN) NEGATIVE NEGATIVE URN BARBITURATE (test code = BARBITURN) NEGATIVE NEGATIVE URN BENZODIAZEPINE (test code = BENZOURN) POSITIVE NEGATIVE A Cut-off value:200 ng/mL URN OPIATES (test code = OPIATURN) NEGATIVE NEGATIVE Cut-off value:2000 ng/mL URN PHENCYCLIDINE (PCP) (test code = PHENCURN) NEGATIVE NEGATIV E Cutoffs:Barbiturates 200 ng/mLBenzodiazepines 200 ng/mLTHC Cannabinoids 50 ng/mLOpiates(Morphine) 2000 ng/mLAmphetamine 1000 ng/mLCocaine 300 ng/mLPCP phencyclidine 25 ng/mL Unconfirmed screening results shouldnot be used for non-medical purposes. DRUGS OF ABUSE SCREEN [id number] 08:47:00* Test Item Value Reference Range Interpretation Comments URN COCAINE (test code = COCAURN) NEGATIVE NEGATIVE URN CANNABINOIDS (test code = CANNABURN) NEGATIVE URN AMPHETAMINE (test code = AMPHETURN) NEGATIVE NEGATIVE URN BARBITURATE (test code = BARBITURN) NEGATIVE NEGATIVE URN BENZODIAZEPINE (test code = BENZOURN) NEGATIVE URN OPIATES (test code = OPIATURN) NEGATIVE NEGATIVE Cut-off value:2000 ng/mL URN PHENCYCLIDINE (PCP) (test code = PHENCURN) NEGATIVE NEGATIV E Cutoffs:Barbiturates 200 ng/mLBenzodiazepines 200 ng/mLTHC Cannabinoids 50 ng/mLOpiates(Morphine) 2000 ng/mLAmphetamine 1000 ng/mLCocaine 300 ng/mLPCP phencyclidine 25 ng/mL Unconfirmed screening results shouldnot be used for non-medical purposes. CBC W/AUTO [id number] 08:45:00* Test Item Value Reference Range Interpretation Comments WHITE BLOOD CELL (test code = WBC) 8.04 x10 3/uL 4.5-11.0 N RED BLOOD CELL (test code = RBC) 4.09 x10 6/uL 3.54-5.02 N HEMOGLOBIN (test code = HGB) 10.5 g/dL 11.0-15.0 L HEMATOCRIT (test code = HCT) 37.1 % 33.0-45.0 N MEAN CELL VOLUME (test code = MCV) 90.7 fL 81.0-99.0 N MEAN CELL HGB (test code = MCH) 25.7 pg 27.0-33.0 L MEAN CELL HGB CONCETRATION (test code = MCHC) 28.3 g/dL 33.0-37. 0 L RED CELL DISTRIBUTION WIDTH CV (test code = RDW) 25.8 % 11.5- 14.5 H RED CELL DISTRIBUTION WIDTH SD (test code = RDW-SD) 73.1 fL 37 .0-54.0 H PLATELET COUNT (test code = PLT) 307 x10 3/uL 150-400 N MEAN PLATELET VOLUME (test code = MPV) 12.4 fL 7.0-9.0 H NEUTROPHIL % (test code = NT%) 79.5 % 56.0-77.0 H IMMATURE GRANULOCYTE % (test code = IG%) 0.4 % 0.0-2.0 N LYMPHOCYTE % (test code = LY%) 15.5 % 14.0-32.0 N MONOCYTE % (test code = MO%) 3.6 % 4.8-9.0 L EOSINOPHIL % (test code = EO%) 0.6 % 0.3-3.7 N BASOPHIL % (test code = BA%) 0.4 % 0.0-2.0 N NUCLEATED RBC % (test code = NRBC%) 0.0 % 0-0 N NEUTROPHIL # (test code = NT#) 6.39 x10 3/uL 2.0-7.6 N IMMATURE GRANULOCYTE # (test code = IG#) 0.03 x10 3/uL 0.00-0.03 N LYMPHOCYTE # (test code = LY#) 1.25 x10 3/uL 1.0-3.8 N MONOCYTE # (test code = MO#) 0.29 x10 3/uL 0.1-0.8 N EOSINOPHIL # (test code = EO#) 0.05 x10 3/uL 0.0-0.2 N BASOPHIL # (test code = BA#) 0.03 x10 3/uL 0.0-0.2 N NUCLEATED RBC # (test code = NRBC#) 0.00 x10 3/uL 0.0-0.1 N MANUAL DIFF REQUIRED (test code = MDIFF) NO UA RFLX MICR CULT IF [id number] 08:37:00* Test Item Value Reference Range Interpretation Comments UA COLOR (test code = COLU) YELLOW YEL/STRAW UA APPEARANCE (test code = APPU) SL CLOUDY CLEAR UA GLUCOSE DIPSTICK (test code = DGLUU) NEGATIVE NEGATIVE UA BILIRUBIN DIPSTICK (test code = BILU) NEGATIVE NEGATIVE UA KETONE DIPSTICK (test code = KETU) NEGATIVE NEGATIVE UA SPECIFIC GRAVITY (test code = SGU) 1.016 1.005-1.030 N UA BLOOD DIPSTICK (test code = ZABRINA) NEGATIVE NEGATIVE UA PH DIPSTICK (test code = ROC) 6.0 5.0-7.0 N UA PROTEIN DIPSTICK (test code = PROU) NEGATIVE NEGATIVE UA UROBILINIOGEN DIPSTICK (test code = URO) 0.2 mg/dL 0.2-1.0 UA NITRITE DIPSTICK (test code = NURA) NEGATIVE NEGATIVE UA LEUKOCYTE ESTERASE DIPSTICK (test code = LEUU) NEGATIVE NEGA TIVE UA WBC (test code = WBCU) 0-3 WBC/HPF 0-3 UA RBC (test code = RBCU) 4-10 RBC/HPF 0-3 UA WBC NO REFLEX (test code = WBCUCL) 0-3 WBC/HPF 0-3 UA BACTERIA (test code = BACU) TRACE /HPF NONE SEEN UA SQUAMOUS CELLS (test code = SQU) 6-10 /HPF NONE SEEN A UA MUCUS (test code = MUCU) TRACE /LPF NONE SEEN Indication for culture: Suprapubic PainSpecimen Description: MID STREAM LACTIC ACID [id number] 08:02:00* Test Item Value Reference Range Interpretation Comments LACTIC ACID POC (test code = LACTP) 1.7 MMOL/L 0.90-1.70 N Performed by certified automatic coil machine operator at [facility] UR HCG [id number] 17:04:00* Test Item Value Reference Range Interpretation Comments UR HCG QUAL (test code = HCGQLU) NEGATIVE NEGATIVE URINALYSIS [id number] 17:04:00* Test Item Value Reference Range Interpretation Comments UA COLOR (test code = COLU) YELLOW YEL/STRAW UA APPEARANCE (test code = APPU) CLEAR CLEAR UA GLUCOSE DIPSTICK (test code = DGLUU) NEGATIVE NEGATIVE UA BILIRUBIN DIPSTICK (test code = BILU) NEGATIVE NEGATIVE UA KETONE DIPSTICK (test code = KETU) NEGATIVE NEGATIVE UA SPECIFIC GRAVITY (test code = SGU) 1.017 1.005-1.030 N UA BLOOD DIPSTICK (test code = ZABRINA) NEGATIVE NEGATIVE UA PH DIPSTICK (test code = ROC) 6.0 5.0-7.0 N UA PROTEIN DIPSTICK (test code = PROU) NEGATIVE NEGATIVE UA UROBILINIOGEN DIPSTICK (test code = URO) 2.0 mg/dL 0.2-1.0 A UA NITRITE DIPSTICK (test code = NURA) NEGATIVE NEGATIVE UA LEUKOCYTE ESTERASE DIPSTICK (test code = LEUU) NEGATIVE NEGA TIVE UA RBC (test code = RBCU) 0-3 RBC/HPF 0-3 UA WBC NO REFLEX (test code = WBCUCL) 0-3 WBC/HPF 0-3 UA BACTERIA (test code = BACU) TRACE /HPF NONE SEEN UA SQUAMOUS CELLS (test code = SQU) 0-5 /HPF NONE SEEN UA HYALINE CAST (test code = HYALU) 3-5 /LPF NONE SEEN UA MUCUS (test code = MUCU) 4+ /LPF NONE SEEN A COMPREHENSIVE METABOLIC [id number] 16:06:00* Test Item Value Reference Range Interpretation Comments SODIUM (test code = NA) 138 mEq/L 134-147 N POTASSIUM (test code = K) 4.2 mEq/L 3.4-5.0 N SP ECIMEN 1+ HEMOLYZED.Results known to be adversely affected by hemolysis are: Potassium Magnesium LDH Phosphorus CHLORIDE (test code = CL) 107 mEq/L 100-108 N CARBON DIOXIDE (test code = CO2) 27 mEq/L 21-33 N ANION GAP (test code = GAP) 8 0-20 N GLUCOSE (test code = GLU) 92 mg/dL 70-110 N BLOOD UREA NITROGEN (test code = BUN) 8 mg/dL 7-18 N GLOMERULAR FILTRATION RATE (test code = GFR) 84.2 105-110 L Units of measure = ml/min/1.73 m2 CREATININE (test code = CREAT) 0.8 mg/dL 0.6-1.3 N TOTAL PROTEIN (test code = PROT) 8.0 g/dL 6.4-8.2 N ALBUMIN (test code = ALB) 4.10 g/dL 3.4-5.0 N CALCIUM (test code = CA) 9.3 mg/dL 8.0-10.5 N BILIRUBIN TOTAL (test code = BILT) 0.50 mg/dL 0.0-1.0 N SGOT/AST (test code = AST) 27 IUnit/L 15-37 N SGPT/ALT (test code = ALT) 33 IUnit/L 15-65 N ALKALINE PHOSPHATASE TOTAL (test code = ALKP) 82 IUnit/L 20-125 N CBC W/AUTO [id number] 15:42:00* Test Item Value Reference Range Interpretation Comments WHITE BLOOD CELL (test code = WBC) 6.17 x10 3/uL 4.5-11.0 N RED BLOOD CELL (test code = RBC) 4.01 x10 6/uL 3.54-5.02 N HEMOGLOBIN (test code = HGB) 10.4 g/dL 11.0-15.0 L HEMATOCRIT (test code = HCT) 33.6 % 33.0-45.0 N MEAN CELL VOLUME (test code = MCV) 83.8 fL 81.0-99.0 N MEAN CELL HGB (test code = MCH) 25.9 pg 27.0-33.0 L MEAN CELL HGB CONCETRATION (test code = MCHC) 31.0 g/dL 33.0-37. 0 L RED CELL DISTRIBUTION WIDTH CV (test code = RDW) 19.9 % 11.5- 14.5 H RED CELL DISTRIBUTION WIDTH SD (test code = RDW-SD) 60.9 fL 37 .0-54.0 H PLATELET COUNT (test code = PLT) 417 x10 3/uL 150-400 H MEAN PLATELET VOLUME (test code = MPV) 11.1 fL 7.0-9.0 H NEUTROPHIL % (test code = NT%) 43.4 % 56.0-77.0 L IMMATURE GRANULOCYTE % (test code = IG%) 0.3 % 0.0-2.0 N LYMPHOCYTE % (test code = LY%) 45.1 % 14.0-32.0 H MONOCYTE % (test code = MO%) 6.8 % 4.8-9.0 N EOSINOPHIL % (test code = EO%) 3.9 % 0.3-3.7 H BASOPHIL % (test code = BA%) 0.5 % 0.0-2.0 N NUCLEATED RBC % (test code = NRBC%) 0.0 % 0-0 N NEUTROPHIL # (test code = NT#) 2.68 x10 3/uL 2.0-7.6 N IMMATURE GRANULOCYTE # (test code = IG#) 0.02 x10 3/uL 0.00-0.03 N LYMPHOCYTE # (test code = LY#) 2.78 x10 3/uL 1.0-3.8 N MONOCYTE # (test code = MO#) 0.42 x10 3/uL 0.1-0.8 N EOSINOPHIL # (test code = EO#) 0.24 x10 3/uL 0.0-0.2 H BASOPHIL # (test code = BA#) 0.03 x10 3/uL 0.0-0.2 N NUCLEATED RBC # (test code = NRBC#) 0.00 x10 3/uL 0.0-0.1 N MANUAL DIFF REQUIRED (test code = MDIFF) NO - XR FOREARM 2 VIEWS [id number] 16:20:00 FAX: Henrique Lozano NP [phone] [place]: St: DEP Name: Christiano GUOHOLLEY MAILE [facility] : [birth year] Age/S: 28/F [address] [facility] Unit #: [id number] Loc: [place] [address] Phys: Henrique Lozano NP Acct: [id number] Dis Date: Status: DEP ER PHONE #: [phone] Exam Date: 10/14/2018 1602 FAX #: [phone] Reason: TRAUMA EXAMS: CPT CODE: [id number] XR FORE[place] [address] [place] [address] REASON FOR EXAM: TRAUMA EXAM ORDER DATE: 10/14/2018 3:37 PM Or ah Saldana: Henrique Lozano NP PROCEDURE: - XR [...] post ORIF. No acute osseous abnormality at 1620 Reported and signed by: Ag Holland M.D. CC: Henrique Trejo NP Technologist: Nickie Viveros(Mik) Trnscrd Date/Time/By: 10/14/2018 () : By: MojganVTL Orig Print D/T: S: 10/14/2018 (6486) PAGE 1 Signed Report - XR FOREARM 2 VIEWS [id number] 09:36:00 Name: HOLLEY GAYLE [facility] : 1990 Age/S: 28 / F [id number] Unit #: [id number] Loc: [place] [address] Phys: Ozzy Jensen MD Acct: [id number] Dis Date: Status: REG ER PHONE #: [phone] Exam Date: 09/26/2018 09 FAX #: Reason: trauma, previous surgery due to metastatic dise EXAMS: CPT: [id number] XR FOREARM [address] [place] [address] Fluoro Time: DAP (Gy m2): Air Kerma [...] PAGE 1 Signed Report Name: HEIDE GAYLE [facility] : 1990 Ag e/S: / [id number] Unit #: [id number] Loc: [place] [address] Phys: Ozzy Jensen MD Acct: [id number] Dis Date: Status: REG ER PHONE #: [phone] Exam Date: 09/26/2018929 FAX #: Reason: trauma, previous surgery due to metastatic dise EXAMS: CPT: [id number] XR FOREARM [address] [place] [address] Fluoro Time: DAP (Gy m2): Air Kerma (mGy): <Continued> Technologist: RT Luann(R) Trnscb Date/Time: 09/26/2018 (935) [email or web address] Orig Print D/T: S: 09/26/2018 (3140) PAGE 2 Signed Report - XR FOREARM 2 VIEWS [id number] 13:38:00Patient Name: HOLLEY HODGES Unit No: [id number] EXAMS: CPT CODE: [id number] XR FOREARM [address] [place] [address] EXAM: Right forearm series, 2 views Dictation [...] grossly intact, only seen in profile. at 1338 Reported and signed by: Willam Tucker M.D. CC: Cory Betancourt MD Technologist: Cameron Iniguez Fluoro Time: DA P (Gy m2): Air Kerma (mGy): Trscr Dt/Tm: 09/24/2018 (0546) by:Tony [email or web address] Printed Date/Time: 09/24/2018 (8841) Name: HOLLEY HODGES [facility] Phys: Cory Guaman [address] : 1990 Age: 28 Sex: F [place] [address] Acct No: [id number] Loc: P.ERS Exam Date: 09/24 Status: REG ER PH: FAX: PAGE 1 Signed Report HAND 3+ VIEWS RIGHT 2018-09-13 05:41:00 [place] [address] Patient Name: HOLLEY GAYLE MR #: [id number] : 1990 Age/Sex: 28/F Req #: [id number] Adm Physician: Ordered by: RANJIT HINOJOSA MD Report #: [id number] Location: ER Room/Bed: Procedure: [id number] DX/HAND 3+ VIEWS RIGHT Exam Date: 09/13/18 [...] 5:49 AM Dictated By: VIRAL CRUZ DO 8 Transcribed By: QUENTIN on 09/13/1849 COPY TO: RANJIT HINOJOSA MD WRIST COMPLETE [id number] 05:41:00 [place] [address] Patient Name: HOLLEY GAYLE MR #: [id number] : 1990 Age/Sex: 28/F Req #: [id number] Adm Physician: Ordered by: RANJIT HINOJOSA MD Report #: [id number] Location: ER Room/Bed: Procedure: [id number] DX/WRIST COMPLETE RIGHT Exam Date: 09/13/18 Exam [...] TO: RANJIT HINOJOSA MD FOREARM RIGHT 2 [id number] 05:41:00 [place] [address] Patient Name: HOLLEY GAYLE MR #: [id number] : 1990 Age/Sex: 28/F Req #: [id number] Adm Physician: Ordered by: RANJIT HINOJOSA MD Report #: [id number] Location: ER Room/Bed: Procedure: [id number] DX/FOREARM RIGHT 2 VIEW Exam Date: 09/13/18 [...] COPY TO: RANJIT HINOJOSA MD ELBOW RIGHT [id number] 05:41:00 [place] [address] Patient Name: HOLLEY GAYLE MR #: [id number] : 1990 Age/Sex: 28/F Req #: [id number] Adm Physician: Ordered by: RANJIT HINOJOSA MD Report #: [id number] Location: ER Room/Bed: Procedure: [id number] DX/ELBOW RIGHT COMPLETE Exam Date: 09/13/18 Exam [...] 5:49 AM Dictated By: VIRAL HALL DO Transcribe d By: QUENTIN on 09/13/18 0549 COPY TO: RANJIT HINOJOSA MD SHOULDER RIGHT [id number] 05:41:00 [place] [address] Patient Name: HOLLEY GAYLE MR #: [id number] : 1990 Age/Sex: 28/F Req #: [id number] Adm Physician: Ordered by: RANJIT HINOJOSA MD Report #: [id number] Location: ER Room/Bed: Procedure: [id number] DX/SHOULDER RIGHT COMPLETE Exam Date: 09/13/18 Exam [...] evidence of hardware failure. Sign ed by: Dr. Viral Hall D.O., M.M.M. on 09/13/2018 5:49 AM Dictated By: HEIDE HALL DO Transcr ibed By: QUENTIN on 09/13/1849 COPY TO: RANJIT HINOJOSA MD - XR FOREARM 2 VIEWS [id number] 23:33:00 FAX: North Lira DO [phone] [place]: St: PRE Name: HOLLEY GREGG [facility] : [birth year] Age/S: 28/F [address] [place] [address] Unit #: [id number] Loc: [place] [address] Phys: North Lai DO Acct: [id number] Dis Date: Status: PRE ER PHONE #: [phone] Exam Date: 09/12/20182318 FAX #: [phone] Reason: rt arm pain EXAMS: CPT CODE: [id number] XR FOREARM [address] [place] [address] Right forearm 2 view HISTORY: Arm pain. [...] No acute change from 08/27/18. SL:01 at 2333 Reported and signed by: Henrique Crawley M.D. CC: North Lai DO Technologist: Savage Coon RT(R) Trnscrd Date/Time/By: 9 (6572) : By: Iesha Orig Print D/T: S: 09/12/2018 (6971) PAGE 1 Signed Report - XR HAND 3 + V [id number] 23:20:00 FAX: North Lira DO [phone] [place]: St: PRE Name: HOLLEY GREGG [facility] : [birth year] Age/S: 28/F [address] [place] [address] Unit #: [id number] Loc: [place] [address] Phys: North Lai DO Acct: [id number] Dis Date: Status: PRE ER PHONE #: [phone] Exam Date: 09/12/20182316 FAX #: [phone] Reason: RT ARM PAIN EXAMS: CPT CODE: [id number] XR HAND 3 + [place] [address] Right hand 3 view HI STORY: Right [...] acute interval change from 08/27/18. SL:01 at 2320 Reported and signed by: Henrique Crawley M.D. CC: North Lai DO Technologist: Ranjit Coon RT(R) Trnscrd Date/Time/By: 09/12/2018 (2652) : By: Iesha Orig Print D/T: S: 09/12/2018 (8143) PAGE 1 Signed Report - XR HAND 3 + V [id number] 08:01:00 FAX: Thierno Gar SOFT WORK WRAPPER LAYER AND EXAMINER [phone] [place]: St: REG Name: HOLLEY GREGG [facility] : [birth year] Age/S: 28/F [address] [facility] Unit #: [id number] Loc: [place] [address] Phys: Thierno Gar SOFT WORK WRAPPER LAYER AND EXAMINER Acct: [id number] Dis Date: Status: REG ER PHONE #: [phone] Exam Date: 08/27/2018 0737 FAX #: [phone] Reason: ARM PAIN EXAMS: CPT CODE: [id number] XR HAND 3 + V RT 18475 EXAM: Right forearm, 2 views and r [...] CC: Thierno Gar NP Technologist: Raulito PEREZ(Mik) [facility] Date/Time/By: 08/27/2018 (800) : By: MojganGRW [facility] Print D/T: S: 08/27/2018 (04) PAGE 1 Richard d Report - XR FOREARM 2 VIEWS [id number] 08:01:00 FAX: Thierno Gar NP [phone] [place]: St: REG Name: HOLLEY GREGG [facility] : [birth year] Age/S: 28/F [address] [facility] Unit #: [id number] Loc: [place] [address] Phys: Thierno Gar SOFT WORK WRAPPER LAYER AND EXAMINER Acct: [id number] Dis Date: Status: REG ER PHONE #: [phone] Exam Date: 08/27/2018 0737 FAX #: [phone] Reason: ARM PAIN EXAMS: CPT CODE: [id number] XR FOREARM [address] [place] [address] EXAM: Right forearm, 2 views and r [...] CC: Thierno Gar NP Technologist: Raulito PEREZ(Mik) [facility] Date/Time/By: 08/27/2018 (800) : By: ValdoW [facility] Print D/T: S: 08/27/2018 (0804) PAGE 1 Richard d Report - XR HUMERUS 2 + V [id number] 07:55:00 FAX: Thierno Gar NP [phone] [place]: B St: REG Name: HOLLEY GREGG [facility] : [birth year] Age/S: 28/F [address] [facility] Unit #: [id number] Loc: [place] [id number] Phys: Thierno Gar NP Acct: [id number] Dis Date: Status: REG ER PHONE #: [phone] Exam Date: 08/27/2018 0737 FAX #: [phone] Reason: ARM PAIN EXAMS: CPT CODE: [id number] XR HUMERUS 2 + V RT 11074 EXAM: Right humerus, 2 views; INFORMATION: Arm pain; FINDINGS: Normal shape and structure of the imaged bones; no evidence of fracture or dislocation; no soft tissue abnormalities. IMPRESSION: No evidenc e of acute osseous trauma or other pathological changes. No radiopaque f oreign body. at 0755 Reported and signed by: Huang Knapp M.D. CC: Thierno Gar NP Technologist: Raulito Cifuentes RT(R) Trnscrd Date/Time/By: (0755) : By: ValdoW Orig Print D/T: S: 08/27/2018 (0758) PAGE 1 Signed Report RAD, HAND, 3 VIEWS, [id number] 09:52:00Reason for exam:-> ARM PAINReason for exam:->EMESISFINAL [...] MDReport Verified Date/Time: 08/25/2018 09:52:23 Reading Location: [facility] Radiology Reading Room C METABOLIC [id number] 09:38:00* Test Item Value Reference Range Interpretation Comments SODIUM (BEAKER) (test code = 381) 140 meq/L 136-145 POTASSIUM (BEAKER) (test code = 379) 3.6 meq/L 3.5-5.1 CHLORIDE (BEAKER) (test code = 382) 104 meq/L 98-107 CO2 (BEAKER) (test code = 355) 26 meq/L 22-29 BLOOD UREA NITROGEN (BEAKER) (test code = 354) 12 mg/dL 7-21 CREATININE (BEAKER) (test code = 358) 0.79 mg/dL 0.57-1.25 GLUCOSE RANDOM (BEAKER) (test code = 652) 110 mg/dL 70-105 H CALCIUM (BEAKER) (test code = 697) 10.3 mg/dL 8.4-10.2 H EGFR (BEAKER) (test code = 1092) 85 mL/min/1.73 sq m ESTIMATED GFR IS NOT ACCURATE CREATININE CLEARANCE IN PREDICTING GLOMERULAR FILTRATION RATE. ESTIMATED GFR IS NOT APPLICABLE FOR DIALYSIS PATIENTS. C-REACTIVE [id number] 09:38:00* Test Item Value Reference Range Interpretation Comments C-REACTIVE PROTEIN (BEAKER) (test code = 676) 0.11 mg/dL 0.00-0.5 0 CBC W/PLT COUNT & AUTO [id number] 09:26:00* Test Item Value Reference Range Interpretation Comments WHITE BLOOD CELL COUNT (BEAKER) (test code = 775) 13.8 K/ L 3.5- 10.5 H RED BLOOD CELL COUNT (BEAKER) (test code = 761) 4.52 M/ L 3.93-5 .22 HEMOGLOBIN (BEAKER) (test code = 410) 11.8 GM/DL 11.2-15.7 HEMATOCRIT (BEAKER) (test code = 411) 38.4 % 34.1-44.9 MEAN CORPUSCULAR VOLUME (BEAKER) (test code = 753) 85.0 fL 79. 4-94.8 MEAN CORPUSCULAR HEMOGLOBIN (BEAKER) (test code = 751) 26.1 pg 25.6-32.2 MEAN CORPUSCULAR HEMOGLOBIN CONC (BEAKER) (test code = 752) 30.7 GM/DL 32.2-35.5 L RED CELL DISTRIBUTION WIDTH (BEAKER) (test code = 412) 19.2 % 11.7-14.4 H PLATELET COUNT (BEAKER) (test code = 756) 460 K/CU MM 150-450 H MEAN PLATELET VOLUME (BEAKER) (test code = 754) 10.0 fL 9.4-12 .3 NUCLEATED RED BLOOD CELLS (BEAKER) (test code = 413) 0 /100 WBC 0 -0 NEUTROPHILS RELATIVE PERCENT (BEAKER) (test code = 429) 81 % LYMPHOCYTES RELATIVE PERCENT (BEAKER) (test code = 430) 14 % MONOCYTES RELATIVE PERCENT (BEAKER) (test code = 431) 3 % EOSINOPHILS RELATIVE PERCENT (BEAKER) (test code = 432) 1 % BASOPHILS RELATIVE PERCENT (BEAKER) (test code = 437) 0 % NEUTROPHILS ABSOLUTE COUNT (BEAKER) (test code = 670) 11.17 K/ L 1.56-6.13 H LYMPHOCYTES ABSOLUTE COUNT (BEAKER) (test code = 414) 1.94 K/ L 1.18-3.74 MONOCYTES ABSOLUTE COUNT (BEAKER) (test code = 415) 0.42 K/ L 0. 24-0.36 H EOSINOPHILS ABSOLUTE COUNT (BEAKER) (test code = 416) 0.15 K/ L 0.04-0.36 BASOPHILS ABSOLUTE COUNT (BEAKER) (test code = 417) 0.05 K/ L 0. 01-0.08 IMMATURE GRANULOCYTES-RELATIVE PERCENT (BEAKER) (test code = 2801) 0 % 0-1 BASIC METABOLIC [id number] 10:47:00* Test Item Value Reference Range Interpretation Comments SODIUM (test code = NA) 141 mmol/L 136-145 N POTASSIUM (test code = K) 3.4 mmol/L 3.5-5.1 L CHLORIDE (test code = CL) 106.0 mmol/L 98-107 N CARBON DIOXIDE (test code = CO2) 25.0 mmol/L 21-32 N ANION GAP (test code = GAP) 13.4 10-20 N GLUCOSE (test code = GLU) 122 mg/dL 74-106 H BLOOD UREA NITROGEN (test code = BUN) 11 mg/dL 7-18 N GLOMERULAR FILTRATION RATE (test code = GFR) > 60 mL/min >=60 Estimated GFR by using Modified MDRD formula.Chronic kidney disease is defined as either kidney damageor GFR <60 mL/min/1.73 m2 for >3 months. CREATININE (test code = CREAT) 0.70 mg/dL 0.55-1.02 N Note change in reference range due to change in reagent. BUN/CREATININE RATIO (test code = BUN/CREA) 15.7 10-20 N CALCIUM (test code = CA) 9.5 mg/dL 8.5-10.1 N HEPATIC FUNCTION [id number] 10:47:00* Test Item Value Reference Range Interpretation Comments TOTAL PROTEIN (test code = PROT) 8.5 gram/dL 6.4-8.2 H ALBUMIN (test code = ALB) 4.3 g/dL 3.4-5.0 N GLOBULIN (test code = GLOB) 4.2 gram/dL 2.7-4.2 N ALBUMIN/GLOBULIN RATIO (test code = A/G) 1.0 0.75-1.50 N BILIRUBIN TOTAL (test code = BILT) 0.40 mg/dL 0.0-1.0 N BILIRUBIN DIRECT (test code = BILD) 0.15 mg/dL 0.0-0.20 N SGOT/AST (test code = AST) 12 IUnit/L 15-37 L SGPT/ALT (test code = ALT) 40 IUnit/L 12-78 N ALKALINE PHOSPHATASE TOTAL (test code = ALKP) 103 IUnit/L 45-117 N Note change in reference range due to change in reagent. [id number] 10:47:00* Test Item Value Reference Range Interpretation Comments LIPASE (test code = LIP) 139 U/L 73.0-393.0 N HCG SERUM [id number] 10:47:00* Test Item Value Reference Range Interpretation Comments HCG SERUM QUAL (test code = HCGQL) NEGATIVE NEGATIVE This HCGQL test is NOT applicable for MALE patients.Check with nurse about probable order error.If Tumor Marker Test needed, nurse should order test "HCGTU"(Test #550.96295) BASIC METABOLIC [id number] 10:37:00* Test Item Value Reference Range Interpretation Comments SODIUM (test code = NA) 141 mmol/L 136-145 N POTASSIUM (test code = K) 3.4 mmol/L 3.5-5.1 L CHLORIDE (test code = CL) 106.0 mmol/L 98-107 N CARBON DIOXIDE (test code = CO2) mmol/L 21-32 ANION GAP (test code = GAP) 10-20 GLUCOSE (test code = GLU) mg/dL 74-106 BLOOD UREA NITROGEN (test code = BUN) mg/dL 7-18 GLOMERULAR FILTRATION RATE (test code = GFR) mL/min >=60 CREATININE (test code = CREAT) mg/dL 0.55-1.02 BUN/CREATININE RATIO (test code = BUN/CREA) 10-20 CALCIUM (test code = CA) mg/dL 8.5-10.1 HEPATIC FUNCTION [id number] 10:37:00* Test Item Value Reference Range Interpretation Comments TOTAL PROTEIN (test code = PROT) gram/dL 6.4-8.2 ALBUMIN (test code = ALB) g/dL 3.4-5.0 GLOBULIN (test code = GLOB) gram/dL 2.7-4.2 ALBUMIN/GLOBULIN RATIO (test code = A/G) 0.75-1.50 BILIRUBIN TOTAL (test code = BILT) mg/dL 0.0-1.0 BILIRUBIN DIRECT (test code = BILD) mg/dL 0.0-0.20 SGOT/AST (test code = AST) IUnit/L 15-37 SGPT/ALT (test code = ALT) IUnit/L 12-78 ALKALINE PHOSPHATASE TOTAL (test code = ALKP) IUnit/L 45-117 [id number] 10:37:00* Test Item Value Reference Range Interpretation Comments LIPASE (test code = LIP) U/L 73.0-393.0 HCG SERUM [id number] 10:37:00* Test Item Value Reference Range Interpretation Comments HCG SERUM QUAL (test code = HCGQL) NEGATIVE NEGATIVE This HCGQL test is NOT applicable for MALE patients.Check with nurse about probable order error.If Tumor Marker Test needed, nurse should order test "HCGTU"(Test #550.60878) BASIC METABOLIC [id number] 10:36:00* Test Item Value Reference Range Interpretation Comments SODIUM (test code = NA) mmol/L 136-145 POTASSIUM (test code = K) mmol/L 3.5-5.1 CHLORIDE (test code = CL) mmol/L 98-107 CARBON DIOXIDE (test code = CO2) mmol/L 21-32 ANION GAP (test code = GAP) 10-20 GLUCOSE (test code = GLU) mg/dL 74-106 BLOOD UREA NITROGEN (test code = BUN) mg/dL 7-18 GLOMERULAR FILTRATION RATE (test code = GFR) mL/min >=60 CREATININE (test code = CREAT) mg/dL 0.55-1.02 BUN/CREATININE RATIO (test code = BUN/CREA) 10-20 CALCIUM (test code = CA) mg/dL 8.5-10.1 HEPATIC FUNCTION [id number] 10:36:00* Test Item Value Reference Range Interpretation Comments TOTAL PROTEIN (test code = PROT) gram/dL 6.4-8.2 ALBUMIN (test code = ALB) g/dL 3.4-5.0 GLOBULIN (test code = GLOB) gram/dL 2.7-4.2 ALBUMIN/GLOBULIN RATIO (test code = A/G) 0.75-1.50 BILIRUBIN TOTAL (test code = BILT) mg/dL 0.0-1.0 BILIRUBIN DIRECT (test code = BILD) mg/dL 0.0-0.20 SGOT/AST (test code = AST) IUnit/L 15-37 SGPT/ALT (test code = ALT) IUnit/L 12-78 ALKALINE PHOSPHATASE TOTAL (test code = ALKP) IUnit/L 45-117 [id number] 10:36:00* Test Item Value Reference Range Interpretation Comments LIPASE (test code = LIP) U/L 73.0-393.0 HCG SERUM [id number] 10:36:00* Test Item Value Reference Range Interpretation Comments HCG SERUM QUAL (test code = HCGQL) NEGATIVE NEGATIVE This HCGQL test is NOT applicable for MALE patients.Check with nurse about probable order error.If Tumor Marker Test needed, nurse should order test "HCGTU"(Test #550.18294) CBC W/O [id number] 10:29:00* Test Item Value Reference Range Interpretation Comments WHITE BLOOD CELL (test code = WBC) 10.1 K/mm3 4.5-12.5 N RED BLOOD CELL (test code = RBC) 4.27 mill/mm3 3.7-5.2 N HEMOGLOBIN (test code = HGB) 11.2 gram/dL 11.5-15.5 L HEMATOCRIT (test code = HCT) 36.8 % 36.0-46.0 N MEAN CELL VOLUME (test code = MCV) 86.2 fL 80-98 N MEAN CELL HGB (test code = MCH) 26.2 picogram 27.0-33.0 L MEAN CELL HGB CONCETRATION (test code = MCHC) 30.4 gram/dL 33.0-36. 0 L RED CELL DISTRIBUTION WIDTH (test code = RDW) 18.5 % 11.6-16. 2 H PLATELET COUNT (test code = PLT) 319 K/mm3 150-450 N MEAN PLATELET VOLUME (test code = MPV) 10.3 fL 6.7-11.0 N URINALYSIS [id number] 09:08:00* Test Item Value Reference Range Interpretation Comments UA COLOR (test code = COLU) YELLOW YELLOW UA APPEARANCE (test code = APPU) Cloudy CLEAR A UA GLUCOSE DIPSTICK (test code = DGLUU) NEGATIVE mg/dL NEGATIVE UA BILIRUBIN DIPSTICK (test code = BILU) NEGATIVE mg/dL NEGATIVE UA KETONE DIPSTICK (test code = KETU) NEGATIVE mg/dL NEGATIVE UA SPECIFIC GRAVITY (test code = SGU) 1.027 1.001-1.035 UA BLOOD DIPSTICK (test code = ZABRINA) Negative mg/dL NEGATIVE UA PH DIPSTICK (test code = ROC) 6.5 5.0-8.0 UA PROTEIN DIPSTICK (test code = PROU) 20 (Trace) mg/dL NEGATIVE A UA UROBILINIOGEN DIPSTICK (test code = URO) 2.0 (1+) mg/dL NEGATIVE A UA NITRITE DIPSTICK (test code = NURA) NEGATIVE NEGATIVE UA LEUKOCYTE ESTERASE W REFLEX (test code = LEUUR) NEGATIVE Mihaela/uL NEGATIVE UA WBC (test code = WBCU) 0-5 per HPF 0-5 UA RBC (test code = RBCU) 0-2 #/HPF 0-5 UA EPITHELIAL CELLS (test code = EPIU) MANY per HPF FEW UA BACTERIA (test code = BACU) MODERATE #/HPF NONE A UA HYALINE CAST (test code = HYALU) 3-5 #/LPF 0-5 UA MUCUS (test code = MUCU) MODERATE #/LPF FEW A Urine Source? Clean CatchURINALYSIS [id number] 09:00:00* Test Item Value Reference Range Interpretation Comments UA COLOR (test code = COLU) YELLOW YELLOW UA APPEARANCE (test code = APPU) Cloudy CLEAR A UA GLUCOSE DIPSTICK (test code = DGLUU) NEGATIVE mg/dL NEGATIVE UA BILIRUBIN DIPSTICK (test code = BILU) NEGATIVE mg/dL NEGATIVE UA KETONE DIPSTICK (test code = KETU) NEGATIVE mg/dL NEGATIVE UA SPECIFIC GRAVITY (test code = SGU) 1.027 1.001-1.035 UA BLOOD DIPSTICK (test code = ZABRINA) Negative mg/dL NEGATIVE UA PH DIPSTICK (test code = ROC) 6.5 5.0-8.0 UA PROTEIN DIPSTICK (test code = PROU) 20 (Trace) mg/dL NEGATIVE A UA UROBILINIOGEN DIPSTICK (test code = URO) 2.0 (1+) mg/dL NEGATIVE A UA NITRITE DIPSTICK (test code = NURA) NEGATIVE NEGATIVE UA LEUKOCYTE ESTERASE W REFLEX (test code = LEUUR) NEGATIVE Mihaela/uL NEGATIVE UA WBC (test code = WBCU) per HPF 0-5 UA RBC (test code = RBCU) per HPF 0-5 UA EPITHELIAL CELLS (test code = EPIU) per HPF Few UA BACTERIA (test code = BACU) per HPF NONE Urine Source? Clean Catch- XR ABDOMEN AP 1 [id number] 07:58:00 FAX: Cheli Kirk NP [place]: B St: REG Name: HOLLEY GREGG [facility] : [birth year] Age/S: 28/F [address] Unit #: [id number] Loc: [place], [place] [address] Phys: Cheli Kirk NP Acct: [id number] Dis Date: Status: REG ER PHONE #: [phone] Exam Date: 07/23/2018 0730 FAX #: [phone] Reason: Abdominal Pain EXAMS: CPT CODE: [id number] XR ABDOMEN AP 1 V 55926 REASON FOR EXAM: Abdominal Pain EXAM ORDER [...] Trnscrd Date/Time/By: 07/23/2018 (0758) : By: DimaL Or ig Print D/T: S: 07/23/2018 (0801) PAGE 1 Signed Report [id number] 03:42:00* Test Item Value Reference Range Interpretation Comments GLYCOSYLATED HEMOGLOBIN (HA1C) (test code = GLYHGB) 5.3 % HbA1 4. 8-6.0 N ESTIMATED AVERAGE GLUCOSE (test code = EAG) 105 MG/DL NOTIFIED EB CROWKPBalbir 07/18/18 0228BASIC METABOLIC [id number] 03:36:00* Test Item Value Reference Range Interpretation Comments SODIUM (test code = NA) 140 mmol/L 136-145 N POTASSIUM (test code = K) 3.3 mmol/L 3.5-5.1 L CHLORIDE (test code = CL) 110.0 mmol/L 98-107 H CARBON DIOXIDE (test code = CO2) 21.0 mmol/L 21-32 N ANION GAP (test code = GAP) 12.3 10-20 N GLUCOSE (test code = GLU) 93 mg/dL 74-106 N BLOOD UREA NITROGEN (test code = BUN) 11 mg/dL 7-18 N GLOMERULAR FILTRATION RATE (test code = GFR) > 60 mL/min >=60 Estimated GFR by using Modified MDRD formula.Chronic kidney disease is defined as either kidney damageor GFR <60 mL/min/1.73 m2 for >3 months. CREATININE (test code = CREAT) 0.70 mg/dL 0.55-1.02 N Note change in reference range due to change in reagent. BUN/CREATININE RATIO (test code = BUN/CREA) 15.7 10-20 N CALCIUM (test code = CA) 8.6 mg/dL 8.5-10.1 N HARDSTICK NOTIFIED EB VSmithLAB.KP2 07/18/18 0228CBC W/O [id number] 03:22:00* Test Item Value Reference Range Interpretation Comments WHITE BLOOD CELL (test code = WBC) 11.2 K/mm3 4.5-12.5 N RED BLOOD CELL (test code = RBC) 4.16 mill/mm3 3.7-5.2 N HEMOGLOBIN (test code = HGB) 11.0 gram/dL 11.5-15.5 L HEMATOCRIT (test code = HCT) 35.9 % 36.0-46.0 L MEAN CELL VOLUME (test code = MCV) 86.3 fL 80-98 N MEAN CELL HGB (test code = MCH) 26.4 picogram 27.0-33.0 L MEAN CELL HGB CONCETRATION (test code = MCHC) 30.6 gram/dL 33.0-36. 0 L RED CELL DISTRIBUTION WIDTH (test code = RDW) 17.7 % 11.6-16. 2 H PLATELET COUNT (test code = PLT) 294 K/mm3 150-450 RESULT VERIFIED BY REPEAT ANALYSIS MEAN PLATELET VOLUME (test code = MPV) 10.3 fL 6.7-11.0 N VICKIMYKE NOTIFIED EB LYNCH.KP2 07/18/188- CT ABD PELVIS W/O [id number] 18:33:00 Name: HOLLEY GAYLE [facility] : 1990 Age/S: 28 / F [address] Unit #: [id number] Loc: [place] [address] Phys: Nuno Amador MD Acct: [id number] Dis Date: Status: ADM IN PHONE #: [phone] Exam Date: 07/17/2018 1500 FAX #: [phone] Reason: abd pain wbc 22 EXAMS: CPT CODE: [id number] CT ABD PELVIS W/O CONT 00630 REASON FOR EXAM: abd pain wbc 22 EXAM ORDER DATE: 07/17/2018 6:23 PM Ordering M.D.: Nuno Amdaor MD PROCEDURE: - CT ABD PELVIS W/O [...] Signed Repo rt (CONTINUED) Name: HOLLEY GAYLE [facility] : 1990 Age/S: 28 / F [address] Unit #: [id number] Loc: [place] [address] Phys: Nuno Amador MD Acct: [id number] Dis Date: Status: ADM IN PHONE #: [phone] Exam Date: 07/17/2018 1500 FAX #: [phone] Reason: abd pain wbc 22 EXAMS: CPT CODE: [id number] CT ABD PELVIS W/O CONT 88597 <Continued> at 1833 Reported and signed by: Daryl Acevedo M.D. CC: Raheel Medina MD; Nuno Amador MD Technologist:KIM HEREDIA CTDI: DLP: Trnscb Date/Time: 07/17/2018 (1832) t.SDR.PB10 Orig Print D/T: S: 07/17/2018 (1835) PAGE 2 Signed Report - XR CHEST 1 [id number] 16:47:00 FAX: Nuno Amador MD [phone] [place]: B St: ADM Name: HOLLEY GREGG [facility] : [birth year] Age/S: 28/F [address] [facility] Unit #: [id number] Loc: [place] [address] Phys: Nuno Amador MD Acct: [id number] Dis Date: Status: ADM IN PHONE #: [phone] Exam Date: 07/17/2018 1625 FAX #: [phone] Reason: cough EXAMS: CPT CODE: [id number] XR CHEST 1 V 17812 REASON FOR EXAM: cough Exam Order Date: [...] IMPRESSION: No acute cardiopulm onary process. at 1641 Reported and signed by: Daryl Acevedo M.D. CC: Nuno Henriquez MD Technologist: MADDY DOWD RT(R) Trnscrd Date/Time/By: 07/17/2018 (16 47) : By: [email or web address] Orig Print D/T: S: 07/17/2018 (1324) PAGE 1 Signed Report URINALYSIS [id number] 14:26:00* Test Item Value Reference Range Interpretation Comments UA COLOR (test code = COLU) YELLOW YELLOW UA APPEARANCE (test code = APPU) CLOUDY CLEAR A UA GLUCOSE DIPSTICK (test code = DGLUU) 70-100 (1+) mg/dL NEGATIVE UA BILIRUBIN DIPSTICK (test code = BILU) NEGATIVE NEGATIVE UA KETONE DIPSTICK (test code = KETU) NEGATIVE mg/dL NEGATIVE UA SPECIFIC GRAVITY (test code = SGU) >=1.030 1.001-1.035 UA BLOOD DIPSTICK (test code = ZABRINA) TRACE NEGATIVE UA PH DIPSTICK (test code = ROC) 6.0 5.0-8.0 UA PROTEIN DIPSTICK (test code = PROU) 1+ mg/dL Neg-15 UA UROBILINIOGEN DIPSTICK (test code = URO) 0.2 mg/dL 0.0-0.2 UA NITRITE DIPSTICK (test code = NURA) NEGATIVE NEGATIVE UA LEUKOCYTE ESTERASE W REFLEX (test code = LEUUR) NEGATIVE NEG ATIVE UA WBC (test code = WBCU) 0-5 per HPF 0-5 UA RBC (test code = RBCU) 0-2 per HPF 0-5 UA EPITHELIAL CELLS (test code = EPIU) Moderate (5-10/hpf) per HPF Few UA BACTERIA (test code = BACU) MODERATE per HPF NONE A UA MUCUS (test code = MUCU) MODERATE per LPF NONE-FEW A UA AMORPHOUS SEDIMENT (test code = AMORU) MANY per LPF NONE A Urine Source? Clean CatchBASIC METABOLIC [id number] 14:23:00* Test Item Value Reference Range Interpretation Comments SODIUM (test code = NA) 136 mmol/L 136-145 N POTASSIUM (test code = K) 3.0 mmol/L 3.5-5.1 L CHLORIDE (test code = CL) 103.0 mmol/L 98-107 N CARBON DIOXIDE (test code = CO2) 22.0 mmol/L 21-32 N ANION GAP (test code = GAP) 14.0 10-20 N GLUCOSE (test code = GLU) 176 mg/dL 74-106 H BLOOD UREA NITROGEN (test code = BUN) 12 mg/dL 7-18 N GLOMERULAR FILTRATION RATE (test code = GFR) > 60 mL/min >=60 Estimated GFR by using Modified MDRD formula.Chronic kidney disease is defined as either kidney damageor GFR <60 mL/min/1.73 m2 for >3 months. CREATININE (test code = CREAT) 0.90 mg/dL 0.55-1.02 N Note change in reference range due to change in reagent. BUN/CREATININE RATIO (test code = BUN/CREA) 13.3 10-20 N CALCIUM (test code = CA) 9.6 mg/dL 8.5-10.1 N HEPATIC FUNCTION [id number] 14:23:00* Test Item Value Reference Range Interpretation Comments TOTAL PROTEIN (test code = PROT) 9.4 gram/dL 6.4-8.2 H ALBUMIN (test code = ALB) 4.6 g/dL 3.4-5.0 N GLOBULIN (test code = GLOB) 4.8 gram/dL 2.7-4.2 H ALBUMIN/GLOBULIN RATIO (test code = A/G) 1.0 0.75-1.50 N BILIRUBIN TOTAL (test code = BILT) 0.30 mg/dL 0.0-1.0 N BILIRUBIN DIRECT (test code = BILD) 0.11 mg/dL 0.0-0.20 N SGOT/AST (test code = AST) 17 IUnit/L 15-37 N SGPT/ALT (test code = ALT) 33 IUnit/L 12-78 N ALKALINE PHOSPHATASE TOTAL (test code = ALKP) 116 IUnit/L 45-117 N Note change in reference range due to change in reagent. [id number] 14:23:00* Test Item Value Reference Range Interpretation Comments LIPASE (test code = LIP) 62 U/L 73.0-393.0 L HCG SERUM [id number] 14:23:00* Test Item Value Reference Range Interpretation Comments HCG SERUM QUAL (test code = HCGQL) NEGATIVE NEGATIVE This HCGQL test is NOT applicable for MALE patients.Check with nurse about probable order error.If Tumor Marker Test needed, nurse should order test "HCGTU"(Test #550.61084) [id number] 14:23:00* Test Item Value Reference Range Interpretation Comments TROPONIN-I (test code = TROPI) <0.015 ng/mL 0-0.045 N URINALYSIS [id number] 14:15:00* Test Item Value Reference Range Interpretation Comments UA COLOR (test code = COLU) YELLOW YELLOW UA APPEARANCE (test code = APPU) CLOUDY CLEAR A UA GLUCOSE DIPSTICK (test code = DGLUU) 70-100 (1+) mg/dL NEGATIVE UA BILIRUBIN DIPSTICK (test code = BILU) NEGATIVE NEGATIVE UA KETONE DIPSTICK (test code = KETU) NEGATIVE mg/dL NEGATIVE UA SPECIFIC GRAVITY (test code = SGU) >=1.030 1.001-1.035 UA BLOOD DIPSTICK (test code = ZABRINA) TRACE NEGATIVE UA PH DIPSTICK (test code = ROC) 6.0 5.0-8.0 UA PROTEIN DIPSTICK (test code = PROU) 1+ mg/dL Neg-15 UA UROBILINIOGEN DIPSTICK (test code = URO) 0.2 mg/dL 0.0-0.2 UA NITRITE DIPSTICK (test code = NURA) NEGATIVE NEGATIVE UA LEUKOCYTE ESTERASE W REFLEX (test code = LEUUR) NEGATIVE NEG ATIVE UA WBC (test code = WBCU) per HPF 0-5 UA RBC (test code = RBCU) per HPF 0-5 UA EPITHELIAL CELLS (test code = EPIU) per HPF Few UA BACTERIA (test code = BACU) per HPF NONE Urine Source? Clean CatchBASIC METABOLIC [id number] 14:12:00* Test Item Value Reference Range Interpretation Comments SODIUM (test code = NA) mmol/L 136-145 POTASSIUM (test code = K) mmol/L 3.5-5.1 CHLORIDE (test code = CL) mmol/L 98-107 CARBON DIOXIDE (test code = CO2) mmol/L 21-32 ANION GAP (test code = GAP) 10-20 GLUCOSE (test code = GLU) mg/dL 74-106 BLOOD UREA NITROGEN (test code = BUN) mg/dL 7-18 GLOMERULAR FILTRATION RATE (test code = GFR) mL/min >=60 CREATININE (test code = CREAT) mg/dL 0.55-1.02 BUN/CREATININE RATIO (test code = BUN/CREA) 10-20 CALCIUM (test code = CA) mg/dL 8.5-10.1 HEPATIC FUNCTION [id number] 14:12:00* Test Item Value Reference Range Interpretation Comments TOTAL PROTEIN (test code = PROT) gram/dL 6.4-8.2 ALBUMIN (test code = ALB) g/dL 3.4-5.0 GLOBULIN (test code = GLOB) gram/dL 2.7-4.2 ALBUMIN/GLOBULIN RATIO (test code = A/G) 0.75-1.50 BILIRUBIN TOTAL (test code = BILT) mg/dL 0.0-1.0 BILIRUBIN DIRECT (test code = BILD) mg/dL 0.0-0.20 SGOT/AST (test code = AST) IUnit/L 15-37 SGPT/ALT (test code = ALT) IUnit/L 12-78 ALKALINE PHOSPHATASE TOTAL (test code = ALKP) IUnit/L 45-117 [id number] 14:12:00* Test Item Value Reference Range Interpretation Comments LIPASE (test code = LIP) U/L 73.0-393.0 HCG SERUM [id number] 14:12:00* Test Item Value Reference Range Interpretation Comments HCG SERUM QUAL (test code = HCGQL) NEGATIVE NEGATIVE This HCGQL test is NOT applicable for MALE patients.Check with nurse about probable order error.If Tumor Marker Test needed, nurse should order test "HCGTU"(Test #550.06450) [id number] 14:12:00* Test Item Value Reference Range Interpretation Comments TROPONIN-I (test code = TROPI) ng/mL 0-0.045 CBC W/O [id number] 13:59:00* Test Item Value Reference Range Interpretation Comments WHITE BLOOD CELL (test code = WBC) 22.5 K/mm3 4.5-12.5 H RED BLOOD CELL (test code = RBC) 4.76 mill/mm3 3.7-5.2 N HEMOGLOBIN (test code = HGB) 12.5 gram/dL 11.5-15.5 N HEMATOCRIT (test code = HCT) 39.8 % 36.0-46.0 N MEAN CELL VOLUME (test code = MCV) 83.6 fL 80-98 N MEAN CELL HGB (test code = MCH) 26.3 picogram 27.0-33.0 L MEAN CELL HGB CONCETRATION (test code = MCHC) 31.4 gram/dL 33.0-36. 0 L RED CELL DISTRIBUTION WIDTH (test code = RDW) 17.4 % 11.6-16. 2 H PLATELET COUNT (test code = PLT) 423 K/mm3 150-450 N MEAN PLATELET VOLUME (test code = MPV) 10.4 fL 6.7-11.0 N - CT HEAD/BRAIN W/O [id number] 13:47:00 Name: HOLLEY GAYLE MAILE [facility] : 1990 Age/S: 28 / F [address] [facility] Unit #: [id number] Loc: [place] [address] Phys: Nuno Amador MD Acct: [id number] Dis Date: Status: REG ER PHONE #: [phone] Exam Date: 07/17/2018 1250 FAX #: [phone] Reason: seizure EXAMS: CPT CODE: [id number] CT HEAD/BRAIN W/O CONT 16039 HISTORY: seizure TECHNIQUE: Noncontrast 2.5 mm axial [...] from the previous exam. * * at 1344 Reported and signed by: Kamron Ariza MD CC: Nuno Amador MD Technologist:KIM HEREDIA; ... CTDI: DLP: Trnscb Date/Time: 07/17/2018 (2495) t.SDR.RR31 Orig Print D/T: S: 07/17/2018 (4139) PAGE 1 Signed Report BASIC METABOLIC PANEL 2018-06-26 09:10:00* Test Item Value Reference Range Interpretation Comments SODIUM (test code = NA) 140 mmol/L 136-145 N POTASSIUM (test code = K) 4.0 mmol/L 3.5-5.1 N CHLORIDE (test code = CL) 108.0 mmol/L 98-107 H CARBON DIOXIDE (test code = CO2) 27.0 mmol/L 21-32 N ANION GAP (test code = GAP) 9.0 10-20 L GLUCOSE (test code = GLU) 78 mg/dL 74-106 N BLOOD UREA NITROGEN (test code = BUN) 15 mg/dL 7-18 N GLOMERULAR FILTRATION RATE (test code = GFR) > 60 mL/min >=60 Estimated GFR by using Modified MDRD formula.Chronic kidney disease is defined as either kidney damageor GFR <60 mL/min/1.73 m2 for >3 months. CREATININE (test code = CREAT) 0.70 mg/dL 0.55-1.02 N Note change in reference range due to change in reagent. BUN/CREATININE RATIO (test code = BUN/CREA) 21.4 10-20 H CALCIUM (test code = CA) 9.4 mg/dL 8.5-10.1 N HEPATIC FUNCTION [id number] 09:10:00* Test Item Value Reference Range Interpretation Comments TOTAL PROTEIN (test code = PROT) 8.2 gram/dL 6.4-8.2 N ALBUMIN (test code = ALB) 3.9 g/dL 3.4-5.0 N GLOBULIN (test code = GLOB) 4.3 gram/dL 2.7-4.2 H ALBUMIN/GLOBULIN RATIO (test code = A/G) 0.9 0.75-1.50 N BILIRUBIN TOTAL (test code = BILT) 0.20 mg/dL 0.0-1.0 N BILIRUBIN DIRECT (test code = BILD) 0.06 mg/dL 0.0-0.20 N SGOT/AST (test code = AST) 12 IUnit/L 15-37 L SGPT/ALT (test code = ALT) 46 IUnit/L 12-78 N ALKALINE PHOSPHATASE TOTAL (test code = ALKP) 109 IUnit/L 45-117 N Note change in reference range due to change in reagent. [id number] 09:10:00* Test Item Value Reference Range Interpretation Comments LIPASE (test code = LIP) 220 U/L 73.0-393.0 N HCG SERUM [id number] 09:10:00* Test Item Value Reference Range Interpretation Comments HCG SERUM QUAL (test code = HCGQL) NEGATIVE NEGATIVE This HCGQL test is NOT applicable for MALE patients.Check with nurse about probable order error.If Tumor Marker Test needed, nurse should order test "HCGTU"(Test #550.55897) BASIC METABOLIC [id number] 09:05:00* Test Item Value Reference Range Interpretation Comments SODIUM (test code = NA) 140 mmol/L 136-145 N POTASSIUM (test code = K) 4.0 mmol/L 3.5-5.1 N CHLORIDE (test code = CL) 108.0 mmol/L 98-107 H CARBON DIOXIDE (test code = CO2) mmol/L 21-32 ANION GAP (test code = GAP) 10-20 GLUCOSE (test code = GLU) mg/dL 74-106 BLOOD UREA NITROGEN (test code = BUN) mg/dL 7-18 GLOMERULAR FILTRATION RATE (test code = GFR) mL/min >=60 CREATININE (test code = CREAT) mg/dL 0.55-1.02 BUN/CREATININE RATIO (test code = BUN/CREA) 10-20 CALCIUM (test code = CA) mg/dL 8.5-10.1 HEPATIC FUNCTION [id number] 09:05:00* Test Item Value Reference Range Interpretation Comments TOTAL PROTEIN (test code = PROT) gram/dL 6.4-8.2 ALBUMIN (test code = ALB) g/dL 3.4-5.0 GLOBULIN (test code = GLOB) gram/dL 2.7-4.2 ALBUMIN/GLOBULIN RATIO (test code = A/G) 0.75-1.50 BILIRUBIN TOTAL (test code = BILT) mg/dL 0.0-1.0 BILIRUBIN DIRECT (test code = BILD) mg/dL 0.0-0.20 SGOT/AST (test code = AST) IUnit/L 15-37 SGPT/ALT (test code = ALT) IUnit/L 12-78 ALKALINE PHOSPHATASE TOTAL (test code = ALKP) IUnit/L 45-117 [id number] 09:05:00* Test Item Value Reference Range Interpretation Comments LIPASE (test code = LIP) U/L 73.0-393.0 HCG SERUM [id number] 09:05:00* Test Item Value Reference Range Interpretation Comments HCG SERUM QUAL (test code = HCGQL) NEGATIVE NEGATIVE This HCGQL test is NOT applicable for MALE patients.Check with nurse about probable order error.If Tumor Marker Test needed, nurse should order test "HCGTU"(Test #550.13105) BASIC METABOLIC [id number] 09:00:00* Test Item Value Reference Range Interpretation Comments SODIUM (test code = NA) 140 mmol/L 136-145 N POTASSIUM (test code = K) 4.0 mmol/L 3.5-5.1 N CHLORIDE (test code = CL) 108.0 mmol/L 98-107 H CARBON DIOXIDE (test code = CO2) mmol/L 21-32 ANION GAP (test code = GAP) 10-20 GLUCOSE (test code = GLU) mg/dL 74-106 BLOOD UREA NITROGEN (test code = BUN) mg/dL 7-18 GLOMERULAR FILTRATION RATE (test code = GFR) mL/min >=60 CREATININE (test code = CREAT) mg/dL 0.55-1.02 BUN/CREATININE RATIO (test code = BUN/CREA) 10-20 CALCIUM (test code = CA) mg/dL 8.5-10.1 HEPATIC FUNCTION [id number] 09:00:00* Test Item Value Reference Range Interpretation Comments TOTAL PROTEIN (test code = PROT) gram/dL 6.4-8.2 ALBUMIN (test code = ALB) g/dL 3.4-5.0 GLOBULIN (test code = GLOB) gram/dL 2.7-4.2 ALBUMIN/GLOBULIN RATIO (test code = A/G) 0.75-1.50 BILIRUBIN TOTAL (test code = BILT) mg/dL 0.0-1.0 BILIRUBIN DIRECT (test code = BILD) mg/dL 0.0-0.20 SGOT/AST (test code = AST) IUnit/L 15-37 SGPT/ALT (test code = ALT) IUnit/L 12-78 ALKALINE PHOSPHATASE TOTAL (test code = ALKP) IUnit/L 45-117 [id number] 09:00:00* Test Item Value Reference Range Interpretation Comments LIPASE (test code = LIP) U/L 73.0-393.0 HCG SERUM [id number] 09:00:00* Test Item Value Reference Range Interpretation Comments HCG SERUM QUAL (test code = HCGQL) NEGATIVE URINALYSIS [id number] 08:42:00* Test Item Value Reference Range Interpretation Comments UA COLOR (test code = COLU) YELLOW YELLOW UA APPEARANCE (test code = APPU) Cloudy CLEAR A UA GLUCOSE DIPSTICK (test code = DGLUU) NEGATIVE mg/dL NEGATIVE UA BILIRUBIN DIPSTICK (test code = BILU) NEGATIVE mg/dL NEGATIVE UA KETONE DIPSTICK (test code = KETU) NEGATIVE mg/dL NEGATIVE UA SPECIFIC GRAVITY (test code = SGU) 1.024 1.001-1.035 UA BLOOD DIPSTICK (test code = ZABRINA) Negative mg/dL NEGATIVE UA PH DIPSTICK (test code = ROC) 6.0 5.0-8.0 UA PROTEIN DIPSTICK (test code = PROU) NEGATIVE mg/dL NEGATIVE UA UROBILINIOGEN DIPSTICK (test code = URO) NEGATIVE mg/dL NEGATIVE UA NITRITE DIPSTICK (test code = NURA) NEGATIVE NEGATIVE UA LEUKOCYTE ESTERASE W REFLEX (test code = LEUUR) NEGATIVE Mihaela/uL NEGATIVE UA WBC (test code = WBCU) 0-5 per HPF 0-5 UA RBC (test code = RBCU) 0-2 #/HPF 0-5 UA EPITHELIAL CELLS (test code = EPIU) MANY per HPF FEW UA BACTERIA (test code = BACU) MODERATE #/HPF NONE A UA MUCUS (test code = MUCU) FEW #/LPF FEW Urine Source? Clean CatchCBC W/O [id number] 08:29:00* Test Item Value Reference Range Interpretation Comments WHITE BLOOD CELL (test code = WBC) 6.0 K/mm3 4.5-12.5 N RED BLOOD CELL (test code = RBC) 4.11 mill/mm3 3.7-5.2 N HEMOGLOBIN (test code = HGB) 10.8 gram/dL 11.5-15.5 L HEMATOCRIT (test code = HCT) 36.0 % 36.0-46.0 N MEAN CELL VOLUME (test code = MCV) 87.6 fL 80-98 N MEAN CELL HGB (test code = MCH) 26.3 picogram 27.0-33.0 L MEAN CELL HGB CONCETRATION (test code = MCHC) 30.0 gram/dL 33.0-36. 0 L RED CELL DISTRIBUTION WIDTH (test code = RDW) 18.4 % 11.6-16. 2 H PLATELET COUNT (test code = PLT) 399 K/mm3 150-450 N MEAN PLATELET VOLUME (test code = MPV) 10.5 fL 6.7-11.0 N URINALYSIS [id number] 09:55:00* Test Item Value Reference Range Interpretation Comments UA COLOR (test code = COLU) YELLOW YELLOW UA APPEARANCE (test code = APPU) SLIGHTLY CLOUDY CLEAR A UA GLUCOSE DIPSTICK (test code = DGLUU) NEGATIVE mg/dL NEGATIVE UA BILIRUBIN DIPSTICK (test code = BILU) NEGATIVE mg/dL NEGATIVE UA KETONE DIPSTICK (test code = KETU) NEGATIVE mg/dL NEGATIVE UA SPECIFIC GRAVITY (test code = SGU) 1.026 1.001-1.035 UA BLOOD DIPSTICK (test code = ZABRINA) Negative mg/dL NEGATIVE UA PH DIPSTICK (test code = ROC) 6.0 5.0-8.0 UA PROTEIN DIPSTICK (test code = PROU) NEGATIVE mg/dL NEGATIVE UA UROBILINIOGEN DIPSTICK (test code = URO) NEGATIVE mg/dL NEGATIVE UA NITRITE DIPSTICK (test code = NURA) NEGATIVE NEGATIVE UA LEUKOCYTE ESTERASE W REFLEX (test code = LEUUR) NEGATIVE Mihaela/uL NEGATIVE UA WBC (test code = WBCU) 0-5 per HPF 0-5 UA RBC (test code = RBCU) 0-2 #/HPF 0-5 UA EPITHELIAL CELLS (test code = EPIU) FEW per HPF FEW UA BACTERIA (test code = BACU) FEW #/HPF NONE A UA MUCUS (test code = MUCU) FEW #/LPF FEW Urine Source? Clean CatchDRUGS OF ABUSE SCREEN [id number] 09:55:00* Test Item Value Reference Range Interpretation Comments URN COCAINE (test code = COCAURN) NEGATIVE <300 ng/mL URN CANNABINOIDS (test code = CANNABURN) POSITIVE <50 ng/mL A This test provides only a preliminary test [...] (e.g., employment testing, legaltesting). URN AMPHETAMINE (test code = AMPHETURN) NEGATIVE <1000 ng/mL URN BARBITURATE (test code = BARBITURN) NEGATIVE <200 ng/mL URN BENZODIAZEPINE (test code = BENZOURN) POSITIVE <200 ng/mL A This test provides only a preliminary test [...] (e.g., employment testing, legaltesting). URN OPIATES (test code = OPIATURN) NEGATIVE <300 ng/mL URN PHENCYCLIDINE (PCP) (test code = PHENCURN) NEGATIVE <25 ng/ mL URN METHADONE (test code = METHAURN) NEGATIVE <300 ng/mL Urine Source? Clean CatchBASIC METABOLIC [id number] 09:32:00* Test Item Value Reference Range Interpretation Comments SODIUM (test code = NA) 142 mmol/L 136-145 N POTASSIUM (test code = K) 3.7 mmol/L 3.5-5.1 N CHLORIDE (test code = CL) 110.0 mmol/L 98-107 H CARBON DIOXIDE (test code = CO2) 26.0 mmol/L 21-32 N ANION GAP (test code = GAP) 9.7 10-20 L GLUCOSE (test code = GLU) 90 mg/dL 74-106 N BLOOD UREA NITROGEN (test code = BUN) 11 mg/dL 7-18 N GLOMERULAR FILTRATION RATE (test code = GFR) > 60 mL/min >=60 Estimated GFR by using Modified MDRD formula.Chronic kidney disease is defined as either kidney damageor GFR <60 mL/min/1.73 m2 for >3 months. CREATININE (test code = CREAT) 0.60 mg/dL 0.55-1.02 N Note change in reference range due to change in reagent. BUN/CREATININE RATIO (test code = BUN/CREA) 18.3 10-20 N CALCIUM (test code = CA) 8.9 mg/dL 8.5-10.1 N HEPATIC FUNCTION [id number] 09:32:00* Test Item Value Reference Range Interpretation Comments TOTAL PROTEIN (test code = PROT) 7.9 gram/dL 6.4-8.2 N ALBUMIN (test code = ALB) 3.9 g/dL 3.4-5.0 N GLOBULIN (test code = GLOB) 4.0 gram/dL 2.7-4.2 N ALBUMIN/GLOBULIN RATIO (test code = A/G) 1.0 0.75-1.50 N BILIRUBIN TOTAL (test code = BILT) 0.30 mg/dL 0.0-1.0 N BILIRUBIN DIRECT (test code = BILD) 0.09 mg/dL 0.0-0.20 N SGOT/AST (test code = AST) 9 IUnit/L 15-37 L SGPT/ALT (test code = ALT) 19 IUnit/L 12-78 N ALKALINE PHOSPHATASE TOTAL (test code = ALKP) 86 IUnit/L 45-117 N Note change in reference range due to change in reagent. [id number] 09:32:00* Test Item Value Reference Range Interpretation Comments LIPASE (test code = LIP) 99 U/L 73.0-393.0 N HCG SERUM [id number] 09:32:00* Test Item Value Reference Range Interpretation Comments HCG SERUM QUAL (test code = HCGQL) NEGATIVE NEGATIVE This HCGQL test is NOT applicable for MALE patients.Check with nurse about probable order error.If Tumor Marker Test needed, nurse should order test "HCGTU"(Test #[id number]) BASIC METABOLIC [id number] 09:22:00* Test Item Value Reference Range Interpretation Comments SODIUM (test code = NA) 142 mmol/L 136-145 N POTASSIUM (test code = K) 3.7 mmol/L 3.5-5.1 N CHLORIDE (test code = CL) 110.0 mmol/L 98-107 H CARBON DIOXIDE (test code = CO2) mmol/L 21-32 ANION GAP (test code = GAP) 10-20 GLUCOSE (test code = GLU) mg/dL 74-106 BLOOD UREA NITROGEN (test code = BUN) mg/dL 7-18 GLOMERULAR FILTRATION RATE (test code = GFR) mL/min >=60 CREATININE (test code = CREAT) mg/dL 0.55-1.02 BUN/CREATININE RATIO (test code = BUN/CREA) 10-20 CALCIUM (test code = CA) mg/dL 8.5-10.1 HEPATIC FUNCTION [id number] 09:22:00* Test Item Value Reference Range Interpretation Comments TOTAL PROTEIN (test code = PROT) gram/dL 6.4-8.2 ALBUMIN (test code = ALB) g/dL 3.4-5.0 GLOBULIN (test code = GLOB) gram/dL 2.7-4.2 ALBUMIN/GLOBULIN RATIO (test code = A/G) 0.75-1.50 BILIRUBIN TOTAL (test code = BILT) mg/dL 0.0-1.0 BILIRUBIN DIRECT (test code = BILD) mg/dL 0.0-0.20 SGOT/AST (test code = AST) IUnit/L 15-37 SGPT/ALT (test code = ALT) IUnit/L 12-78 ALKALINE PHOSPHATASE TOTAL (test code = ALKP) IUnit/L 45-117 [id number] 09:22:00* Test Item Value Reference Range Interpretation Comments LIPASE (test code = LIP) U/L 73.0-393.0 HCG SERUM [id number] 09:22:00* Test Item Value Reference Range Interpretation Comments HCG SERUM QUAL (test code = HCGQL) NEGATIVE NEGATIVE This HCGQL test is NOT applicable for MALE patients.Check with nurse about probable order error.If Tumor Marker Test needed, nurse should order test "HCGTU"(Test #550.00867) BASIC METABOLIC [id number] 09:21:00* Test Item Value Reference Range Interpretation Comments SODIUM (test code = NA) mmol/L 136-145 POTASSIUM (test code = K) mmol/L 3.5-5.1 CHLORIDE (test code = CL) mmol/L 98-107 CARBON DIOXIDE (test code = CO2) mmol/L 21-32 ANION GAP (test code = GAP) 10-20 GLUCOSE (test code = GLU) mg/dL 74-106 BLOOD UREA NITROGEN (test code = BUN) mg/dL 7-18 GLOMERULAR FILTRATION RATE (test code = GFR) mL/min >=60 CREATININE (test code = CREAT) mg/dL 0.55-1.02 BUN/CREATININE RATIO (test code = BUN/CREA) 10-20 CALCIUM (test code = CA) mg/dL 8.5-10.1 HEPATIC FUNCTION [id number] 09:21:00* Test Item Value Reference Range Interpretation Comments TOTAL PROTEIN (test code = PROT) gram/dL 6.4-8.2 ALBUMIN (test code = ALB) g/dL 3.4-5.0 GLOBULIN (test code = GLOB) gram/dL 2.7-4.2 ALBUMIN/GLOBULIN RATIO (test code = A/G) 0.75-1.50 BILIRUBIN TOTAL (test code = BILT) mg/dL 0.0-1.0 BILIRUBIN DIRECT (test code = BILD) mg/dL 0.0-0.20 SGOT/AST (test code = AST) IUnit/L 15-37 SGPT/ALT (test code = ALT) IUnit/L 12-78 ALKALINE PHOSPHATASE TOTAL (test code = ALKP) IUnit/L 45-117 [id number] 09:21:00* Test Item Value Reference Range Interpretation Comments LIPASE (test code = LIP) U/L 73.0-393.0 HCG SERUM [id number] 09:21:00* Test Item Value Reference Range Interpretation Comments HCG SERUM QUAL (test code = HCGQL) NEGATIVE NEGATIVE This HCGQL test is NOT applicable for MALE patients.Check with nurse about probable order error.If Tumor Marker Test needed, nurse should order test "HCGTU"(Test #550.30721) URINALYSIS [id number] 09:07:00* Test Item Value Reference Range Interpretation Comments UA COLOR (test code = COLU) YELLOW YELLOW UA APPEARANCE (test code = APPU) SLIGHTLY CLOUDY CLEAR A UA GLUCOSE DIPSTICK (test code = DGLUU) NEGATIVE mg/dL NEGATIVE UA BILIRUBIN DIPSTICK (test code = BILU) NEGATIVE mg/dL NEGATIVE UA KETONE DIPSTICK (test code = KETU) NEGATIVE mg/dL NEGATIVE UA SPECIFIC GRAVITY (test code = SGU) 1.026 1.001-1.035 UA BLOOD DIPSTICK (test code = ZABRINA) Negative mg/dL NEGATIVE UA PH DIPSTICK (test code = ROC) 6.0 5.0-8.0 UA PROTEIN DIPSTICK (test code = PROU) NEGATIVE mg/dL NEGATIVE UA UROBILINIOGEN DIPSTICK (test code = URO) NEGATIVE mg/dL NEGATIVE UA NITRITE DIPSTICK (test code = NURA) NEGATIVE NEGATIVE UA LEUKOCYTE ESTERASE W REFLEX (test code = LEUUR) NEGATIVE Mihaela/uL NEGATIVE UA WBC (test code = WBCU) 0-5 per HPF 0-5 UA RBC (test code = RBCU) 0-2 #/HPF 0-5 UA EPITHELIAL CELLS (test code = EPIU) FEW per HPF FEW UA BACTERIA (test code = BACU) FEW #/HPF NONE A UA MUCUS (test code = MUCU) FEW #/LPF FEW Urine Source? Clean CatchDRUGS OF ABUSE SCREEN [id number] 09:07:00* Test Item Value Reference Range Interpretation Comments URN COCAINE (test code = COCAURN) <300 ng/mL URN CANNABINOIDS (test code = CANNABURN) <50 ng/mL URN AMPHETAMINE (test code = AMPHETURN) <1000 ng/mL URN BARBITURATE (test code = BARBITURN) <200 ng/mL URN BENZODIAZEPINE (test code = BENZOURN) <200 ng/mL URN OPIATES (test code = OPIATURN) <300 ng/mL URN PHENCYCLIDINE (PCP) (test code = PHENCURN) <25 ng/ mL URN METHADONE (test code = METHAURN) <300 ng/mL Urine Source? Clean CatchURINALYSIS [id number] 09:02:00* Test Item Value Reference Range Interpretation Comments UA COLOR (test code = COLU) YELLOW YELLOW UA APPEARANCE (test code = APPU) SLIGHTLY CLOUDY CLEAR A UA GLUCOSE DIPSTICK (test code = DGLUU) NEGATIVE mg/dL NEGATIVE UA BILIRUBIN DIPSTICK (test code = BILU) NEGATIVE mg/dL NEGATIVE UA KETONE DIPSTICK (test code = KETU) NEGATIVE mg/dL NEGATIVE UA SPECIFIC GRAVITY (test code = SGU) 1.026 1.001-1.035 UA BLOOD DIPSTICK (test code = ZABRINA) Negative mg/dL NEGATIVE UA PH DIPSTICK (test code = ROC) 6.0 5.0-8.0 UA PROTEIN DIPSTICK (test code = PROU) NEGATIVE mg/dL NEGATIVE UA UROBILINIOGEN DIPSTICK (test code = URO) NEGATIVE mg/dL NEGATIVE UA NITRITE DIPSTICK (test code = NURA) NEGATIVE NEGATIVE UA LEUKOCYTE ESTERASE W REFLEX (test code = LEUUR) NEGATIVE Mihaela/uL NEGATIVE UA WBC (test code = WBCU) per HPF 0-5 UA RBC (test code = RBCU) per HPF 0-5 UA EPITHELIAL CELLS (test code = EPIU) per HPF Few UA BACTERIA (test code = BACU) per HPF NONE Urine Source? Clean CatchDRUGS OF ABUSE SCREEN [id number] 09:02:00* Test Item Value Reference Range Interpretation Comments URN COCAINE (test code = COCAURN) <300 ng/mL URN CANNABINOIDS (test code = CANNABURN) <50 ng/mL URN AMPHETAMINE (test code = AMPHETURN) <1000 ng/mL URN BARBITURATE (test code = BARBITURN) <200 ng/mL URN BENZODIAZEPINE (test code = BENZOURN) <200 ng/mL URN OPIATES (test code = OPIATURN) <300 ng/mL URN PHENCYCLIDINE (PCP) (test code = PHENCURN) <25 ng/ mL URN METHADONE (test code = METHAURN) <300 ng/mL Urine Source? Clean CatchCBC W/O [id number] 09:00:00* Test Item Value Reference Range Interpretation Comments WHITE BLOOD CELL (test code = WBC) 7.9 K/mm3 4.5-12.5 N RED BLOOD CELL (test code = RBC) 4.16 mill/mm3 3.7-5.2 N HEMOGLOBIN (test code = HGB) 10.8 gram/dL 11.5-15.5 L HEMATOCRIT (test code = HCT) 35.9 % 36.0-46.0 L MEAN CELL VOLUME (test code = MCV) 86.3 fL 80-98 N MEAN CELL HGB (test code = MCH) 26.0 picogram 27.0-33.0 L MEAN CELL HGB CONCETRATION (test code = MCHC) 30.1 gram/dL 33.0-36. 0 L RED CELL DISTRIBUTION WIDTH (test code = RDW) 18.6 % 11.6-16. 2 H PLATELET COUNT (test code = PLT) 388 K/mm3 150-450 N MEAN PLATELET VOLUME (test code = MPV) 10.3 fL 6.7-11.0 N - XR ABDOMEN AP 1 [id number] 08:29:00 FAX: Samia Tamez [place]: B St: REG Name: HOLLEY GREGG [facility] : [birth year] Age/S: 28/F [address] [facility] Unit #: [id number] Loc: [place] [address] Phys: Samia Tamez [employer] Acct: [id number] Dis Date: Status: REG ER PHONE #: [phone] Exam Date: 06/21/2018823 FAX #: [phone] Reason: ABD PAIN EXAMS: CPT CODE: [id number] XR ABDOMEN AP 1 V 88228 HISTORY: Abdominal pain. COMPARISON: June 18, 2018. [...] By: [email or web address] Orig Print D/T: S: 06/21 (0832) PAGE 1 Signed Report - XR ABDOMEN AP 1 [id number] 21:05:00 FAX: Parag Eagle [place]: B St: REG Name: HOLLEY GREGG [facility] : [birth year] 87 Age/S: 28/F [address] [facility] Unit #: [id number] Loc: [place] [address] Phys: Parag Eagle Acct: [id number] Dis Date: Status: REG ER PHONE #: [phone] Exam Date: 06/18/20182034 FAX #: [phone] Reason: vomiting, pain EXAMS: CPT CODE: [id number] XR ABDOMEN AP 1 V 53447 HISTORY: Vomiting. C OMPARISON: April 08, 2018. No bowel obstruction. Mild constipat ion. Patient is post cholecystectomy. The upper abdomen is incompletely included slightly limiting evaluation. No pathologic calcifications. IMPRESSION: No bowel obstruction. Constipation. at 2105 Reported and signed by: Tho Rangel M.D. CC: Parag Eagle MD Technolog ist: MADDY PEREZ(R) Trnscrd Date/Time/By : 06/18/2018 (2104) : By: [email or web address] Orig Print D/T: S: 06/18/2018 () PAGE 1 Signed Report URINALYSIS [id number] 19:49:00* Test Item Value Reference Range Interpretation Comments UA COLOR (test code = COLU) LIGHT YELLOW YELLOW UA APPEARANCE (test code = APPU) Cloudy CLEAR A UA GLUCOSE DIPSTICK (test code = DGLUU) NEGATIVE mg/dL NEGATIVE UA BILIRUBIN DIPSTICK (test code = BILU) NEGATIVE mg/dL NEGATIVE UA KETONE DIPSTICK (test code = KETU) NEGATIVE mg/dL NEGATIVE UA SPECIFIC GRAVITY (test code = SGU) 1.027 1.001-1.035 UA BLOOD DIPSTICK (test code = ZABRINA) Negative mg/dL NEGATIVE UA PH DIPSTICK (test code = ROC) 6.0 5.0-8.0 UA PROTEIN DIPSTICK (test code = PROU) 30 (1+) mg/dL NEGATIVE A UA UROBILINIOGEN DIPSTICK (test code = URO) NEGATIVE mg/dL NEGATIVE UA NITRITE DIPSTICK (test code = NURA) NEGATIVE NEGATIVE UA LEUKOCYTE ESTERASE W REFLEX (test code = LEUUR) NEGATIVE Mihaela/uL NEGATIVE UA WBC (test code = WBCU) 0-5 per HPF 0-5 UA RBC (test code = RBCU) 0-2 #/HPF 0-5 UA EPITHELIAL CELLS (test code = EPIU) MANY per HPF FEW UA BACTERIA (test code = BACU) MODERATE #/HPF NONE A UA MUCUS (test code = MUCU) FEW #/LPF FEW Urine Source? Clean CatchURINALYSIS [id number] 19:41:00* Test Item Value Reference Range Interpretation Comments UA COLOR (test code = COLU) LIGHT YELLOW YELLOW UA APPEARANCE (test code = APPU) Cloudy CLEAR A UA GLUCOSE DIPSTICK (test code = DGLUU) NEGATIVE mg/dL NEGATIVE UA BILIRUBIN DIPSTICK (test code = BILU) NEGATIVE mg/dL NEGATIVE UA KETONE DIPSTICK (test code = KETU) NEGATIVE mg/dL NEGATIVE UA SPECIFIC GRAVITY (test code = SGU) 1.027 1.001-1.035 UA BLOOD DIPSTICK (test code = ZABRINA) Negative mg/dL NEGATIVE UA PH DIPSTICK (test code = ROC) 6.0 5.0-8.0 UA PROTEIN DIPSTICK (test code = PROU) 30 (1+) mg/dL NEGATIVE A UA UROBILINIOGEN DIPSTICK (test code = URO) NEGATIVE mg/dL NEGATIVE UA NITRITE DIPSTICK (test code = NURA) NEGATIVE NEGATIVE UA LEUKOCYTE ESTERASE W REFLEX (test code = LEUUR) NEGATIVE Mihaela/uL NEGATIVE UA WBC (test code = WBCU) per HPF 0-5 UA RBC (test code = RBCU) per HPF 0-5 UA EPITHELIAL CELLS (test code = EPIU) per HPF Few UA BACTERIA (test code = BACU) per HPF NONE Urine Source? Clean CatchBASIC METABOLIC [id number] 19:22:00* Test Item Value Reference Range Interpretation Comments SODIUM (test code = NA) 141 mmol/L 136-145 N POTASSIUM (test code = K) 3.5 mmol/L 3.5-5.1 N CHLORIDE (test code = CL) 110.0 mmol/L 98-107 H CARBON DIOXIDE (test code = CO2) 22.0 mmol/L 21-32 N ANION GAP (test code = GAP) 12.5 10-20 N GLUCOSE (test code = GLU) 98 mg/dL 74-106 N BLOOD UREA NITROGEN (test code = BUN) 12 mg/dL 7-18 N GLOMERULAR FILTRATION RATE (test code = GFR) > 60 mL/min >=60 Estimated GFR by using Modified MDRD formula.Chronic kidney disease is defined as either kidney damageor GFR <60 mL/min/1.73 m2 for >3 months. CREATININE (test code = CREAT) 0.70 mg/dL 0.55-1.02 N Note change in reference range due to change in reagent. BUN/CREATININE RATIO (test code = BUN/CREA) 17.1 10-20 N CALCIUM (test code = CA) 8.5 mg/dL 8.5-10.1 N HEPATIC FUNCTION [id number] 19:22:00* Test Item Value Reference Range Interpretation Comments TOTAL PROTEIN (test code = PROT) 7.8 gram/dL 6.4-8.2 N ALBUMIN (test code = ALB) 3.9 g/dL 3.4-5.0 N GLOBULIN (test code = GLOB) 3.9 gram/dL 2.7-4.2 N ALBUMIN/GLOBULIN RATIO (test code = A/G) 1.0 0.75-1.50 N BILIRUBIN TOTAL (test code = BILT) 0.20 mg/dL 0.0-1.0 N BILIRUBIN DIRECT (test code = BILD) 0.07 mg/dL 0.0-0.20 N SGOT/AST (test code = AST) 13 IUnit/L 15-37 L SGPT/ALT (test code = ALT) 19 IUnit/L 12-78 N ALKALINE PHOSPHATASE TOTAL (test code = ALKP) 86 IUnit/L 45-117 N Note change in reference range due to change in reagent. [id number] 19:22:00* Test Item Value Reference Range Interpretation Comments LIPASE (test code = LIP) 103 U/L 73.0-393.0 N HCG SERUM [id number] 19:22:00* Test Item Value Reference Range Interpretation Comments HCG SERUM QUAL (test code = HCGQL) NEGATIVE NEGATIVE This HCGQL test is NOT applicable for MALE patients.Check with nurse about probable order error.If Tumor Marker Test needed, nurse should order test "HCGTU"(Test #550.40026) BASIC METABOLIC [id number] 19:14:00* Test Item Value Reference Range Interpretation Comments SODIUM (test code = NA) 141 mmol/L 136-145 N POTASSIUM (test code = K) 3.5 mmol/L 3.5-5.1 N CHLORIDE (test code = CL) 110.0 mmol/L 98-107 H CARBON DIOXIDE (test code = CO2) mmol/L 21-32 ANION GAP (test code = GAP) 10-20 GLUCOSE (test code = GLU) mg/dL 74-106 BLOOD UREA NITROGEN (test code = BUN) mg/dL 7-18 GLOMERULAR FILTRATION RATE (test code = GFR) mL/min >=60 CREATININE (test code = CREAT) mg/dL 0.55-1.02 BUN/CREATININE RATIO (test code = BUN/CREA) 10-20 CALCIUM (test code = CA) mg/dL 8.5-10.1 HEPATIC FUNCTION [id number] 19:14:00* Test Item Value Reference Range Interpretation Comments TOTAL PROTEIN (test code = PROT) gram/dL 6.4-8.2 ALBUMIN (test code = ALB) g/dL 3.4-5.0 GLOBULIN (test code = GLOB) gram/dL 2.7-4.2 ALBUMIN/GLOBULIN RATIO (test code = A/G) 0.75-1.50 BILIRUBIN TOTAL (test code = BILT) mg/dL 0.0-1.0 BILIRUBIN DIRECT (test code = BILD) mg/dL 0.0-0.20 SGOT/AST (test code = AST) IUnit/L 15-37 SGPT/ALT (test code = ALT) IUnit/L 12-78 ALKALINE PHOSPHATASE TOTAL (test code = ALKP) IUnit/L 45-117 [id number] 19:14:00* Test Item Value Reference Range Interpretation Comments LIPASE (test code = LIP) U/L 73.0-393.0 HCG SERUM [id number] 19:14:00* Test Item Value Reference Range Interpretation Comments HCG SERUM QUAL (test code = HCGQL) NEGATIVE NEGATIVE This HCGQL test is NOT applicable for MALE patients.Check with nurse about probable order error.If Tumor Marker Test needed, nurse should order test "HCGTU"(Test #550.80217) BASIC METABOLIC [id number] 19:08:00* Test Item Value Reference Range Interpretation Comments SODIUM (test code = NA) 141 mmol/L 136-145 N POTASSIUM (test code = K) 3.5 mmol/L 3.5-5.1 N CHLORIDE (test code = CL) 110.0 mmol/L 98-107 H CARBON DIOXIDE (test code = CO2) mmol/L 21-32 ANION GAP (test code = GAP) 10-20 GLUCOSE (test code = GLU) mg/dL 74-106 BLOOD UREA NITROGEN (test code = BUN) mg/dL 7-18 GLOMERULAR FILTRATION RATE (test code = GFR) mL/min >=60 CREATININE (test code = CREAT) mg/dL 0.55-1.02 BUN/CREATININE RATIO (test code = BUN/CREA) 10-20 CALCIUM (test code = CA) mg/dL 8.5-10.1 HEPATIC FUNCTION [id number] 19:08:00* Test Item Value Reference Range Interpretation Comments TOTAL PROTEIN (test code = PROT) gram/dL 6.4-8.2 ALBUMIN (test code = ALB) g/dL 3.4-5.0 GLOBULIN (test code = GLOB) gram/dL 2.7-4.2 ALBUMIN/GLOBULIN RATIO (test code = A/G) 0.75-1.50 BILIRUBIN TOTAL (test code = BILT) mg/dL 0.0-1.0 BILIRUBIN DIRECT (test code = BILD) mg/dL 0.0-0.20 SGOT/AST (test code = AST) IUnit/L 15-37 SGPT/ALT (test code = ALT) IUnit/L 12-78 ALKALINE PHOSPHATASE TOTAL (test code = ALKP) IUnit/L 45-117 [id number] 19:08:00* Test Item Value Reference Range Interpretation Comments LIPASE (test code = LIP) U/L 73.0-393.0 HCG SERUM [id number] 19:08:00* Test Item Value Reference Range Interpretation Comments HCG SERUM QUAL (test code = HCGQL) NEGATIVE CBC W/O [id number] 19:00:00* Test Item Value Reference Range Interpretation Comments WHITE BLOOD CELL (test code = WBC) 13.2 K/mm3 4.5-12.5 H RED BLOOD CELL (test code = RBC) 3.92 mill/mm3 3.7-5.2 N HEMOGLOBIN (test code = HGB) 10.4 gram/dL 11.5-15.5 L HEMATOCRIT (test code = HCT) 34.4 % 36.0-46.0 L MEAN CELL VOLUME (test code = MCV) 87.8 fL 80-98 N MEAN CELL HGB (test code = MCH) 26.5 picogram 27.0-33.0 L MEAN CELL HGB CONCETRATION (test code = MCHC) 30.2 gram/dL 33.0-36. 0 L RED CELL DISTRIBUTION WIDTH (test code = RDW) 18.7 % 11.6-16. 2 H PLATELET COUNT (test code = PLT) 368 K/mm3 150-450 N MEAN PLATELET VOLUME (test code = MPV) 10.3 fL 6.7-11.0 N COMPREHENSIVE METABOLIC [id number] 06:12:00* Test Item Value Reference Range Interpretation Comments SODIUM (test code = NA) 136 mEq/L 135-145 N POTASSIUM (test code = K) 3.5 mEq/L 3.5-5.0 N CHLORIDE (test code = CL) 98 mEq/L 100-115 L CARBON DIOXIDE (test code = CO2) 28 mEq/L 22-31 N ANION GAP (test code = GAP) 13.60 10-20 N GLUCOSE (test code = GLU) 109 mg/dL 65-110 N BLOOD UREA NITROGEN (test code = BUN) 8 mg/dL 7-18 N GLOMERULAR FILTRATION RATE (test code = GFR) 118 ml/min >60 N CREATININE (test code = CREAT) 0.6 mg/dL 0.5-1.0 N TOTAL PROTEIN (test code = PROT) 8.1 gm/dL 6.3-8.2 N ALBUMIN (test code = ALB) 4.0 gm/dL 3.4-4.8 N CALCIUM (test code = CA) 10.0 mg/dL 8.4-10.2 N BILIRUBIN TOTAL (test code = BILT) 0.5 mg/dL 0.2-1.0 N SGOT/AST (test code = AST) 23 units/L 15-37 SGPT/ALT (test code = ALT) 53 units/L 12-78 N ALKALINE PHOSPHATASE TOTAL (test code = ALKP) 107 units/L 46-116 N - XR UGI [id number] 13:52:00 Patient Name: HOLLEY GAYLE Unit No: [id number] EXAMS: CPT CODE: [id number] XR UGI W/KUB 91888 CLINICAL HISTORY: Abdominal pain, nausea. COMPARISON: Computed tomography performed on May 22, 2018. Preliminary flight hostess film of the abdomen demonstrates a nasogastric [...] Crooks MD CC: Venus Asencio DO Technologist: Delilah Thomas, RT Trnscrbd D/ (5154) [email or web address] Orig Print D/T: S: 05/23/2018 (3537) [facility] NAME: HOLLEY GAYLE MAILE Radiology Department PHYS: Deon Araya [address] : 1990 AGE: 27 SEX: F [place], [place] [address] LOC: F.2618 A PHONE #: [phone] EXAM DATE: 05/23/2018 STATUS: ADM IN FAX #: [phone] RAD NO: Page 1 Signed Report - CT ABD PELVIS [id number] 11:55:00 Patient Name: HOLLEY GAYLE Unit No: [id number] EXAMS: CPT CODE: [id number] CT ABD PELVIS W/CONT 02128 CT ABDOMEN WITH CONTRAST AND CT PELVIS [...] likely secondary to recent abdominal surgery. [facility] NAME: NALININEVIN ORLANDOAKUA GR Radiology Department PHYS: Kareem Iniguez MD [address] : 1990 AGE: 27 SEX: F [place] [address] ACCT NO: [id number] LOC: CarlosERS PHONE #: [phone] EXAM DATE: STATUS: REG ER FAX #: [phone] RAD NO: Page 1 Signed Report 1 Meagan ent Name: HOLLEY GAYLE Unit No: [id number] EXAMS: CPT CODE: [id number] CT ABD PELV IS W/CONT 81108 <Continued> IMPRESSION: Small amount of free pelvic fluid. Mild hepatic steatosis. Probable postoperative changes as noted above. at 1155 Reported and signed by: Douglas Mosher MD CC: Kareem Joyce MD; Venus Asencio DO Technologist: Kim Parker, RT CTDI: 15.54 DLP: 788.86 Trnsc rbd D/ (8504) [email or web address] [facility] NAME: HOLLEY GAYLE Radiology Departme nt PHYS: PATSEAN.Joel - Kareem Joyce MD [address] : 1990 AGE: 27 SEX: F [place] [address] LOC: CarlosERS PHONE #: [phone] EXAM DATE: 05/22/2018 STATUS: REG ER FAX #: [phone] RA D NO: Page 2 Signed Report 1 Patient Name: HOLLEY GAYLE Unit No: [id number] EXAMS: CPT CODE: [id number] ABD PELVIS W/CONT 30239 <Continued > Orig Print D/T: S: 05/22/2018 (8873) [facility] NAME: HOLLEY GAYLE Radiology Department PHYS: Kareem Iniguez MD [address] : 1990 AGE: 27 SEX: F [place] [address] LOC: CarlosERS PHONE #: [phone] EXAM DATE: 05/22/2018 STATUS: REG ER FAX #: [phone] RAD NO: Page 3 Signed Report 1 ACUTE HEPATITIS PANEL 2018-05-22 11:26:00* Test Item Value Reference Range Interpretation Comments AB HEPATITIS A IGM (test code = HAVMAB) NONREACTIVE NONREACTIVE AG HEPATITIS B SURFACE (test code = HBSAG) NONREACTIVE NONREACTIVE AB HEPATITIS B CORE IGM (test code = HBCMAB) NONREACTIVE NONREACTI VE AB HEPATITIS C (test code = HCVAB) NONREACTIVE NONREACTIVE SIGNAL TO CUTOFF (test code = CUTOFF) 0.05 <0.80 N ACUTE HEPATITIS [id number] 11:21:00* Test Item Value Reference Range Interpretation Comments AB HEPATITIS A IGM (test code = HAVMAB) NONREACTIVE AG HEPATITIS B SURFACE (test code = HBSAG) NONREACTIVE NONREACTIVE AB HEPATITIS B CORE IGM (test code = HBCMAB) NONREACTIVE NONREACTI VE AB HEPATITIS C (test code = HCVAB) NONREACTIVE NONREACTIVE SIGNAL TO CUTOFF (test code = CUTOFF) 0.05 <0.80 N DRUGS OF ABUSE [id number] 11:10:00* Test Item Value Reference Range Interpretation Comments UR COCAINE (test code = COCAU) NEGATIVE NEGATIVE DETECTION CUT OFF: 150 ng/mL UR CANNABINOIDS (test code = CANU) POSITIVE NEGATIVE A RESULTS CALLED TO Zentyal BACK & CONFIRMED? [facility] [employer].LAB.KG 05/22/18 1106. DETECTION CUT OFF: 50 ng/mL UR AMPHETAMINE (test code = AMPHU) NEGATIVE NEGATIVE DETECTION CUT OFF: 500 ng/mL UR BARBITURATE QUAL (test code = BARBQLU) NEGATIVE NEGATIVE DETECTION CUT OFF: 200 ng/mL UR BENZODIAZEPINE (test code = BENZU) POSITIVE NEGATIVE A RESULTS CALLED TO Zentyal BACK & CONFIRMED? [facility] [employer].LAB.KG 05/22/18 1106. DETECTION CUT OFF: 150 ng/mL UR OPIATES QUAL (test code = OPIAQLU) NEGATIVE NEGATIVE DETECTION CUT OFF: 100 ng/mL UR PHENCYCLIDINE (PCP) (test code = PHENCU) NEGATIVE NEGATIVE DETECTION CUT OFF: 25 ng/mL ACUTE HEPATITIS [id number] 10:58:00* Test Item Value Reference Range Interpretation Comments AB HEPATITIS A IGM (test code = HAVMAB) NONREACTIVE AG HEPATITIS B SURFACE (test code = HBSAG) NONREACTIVE NONREACTIVE AB HEPATITIS B CORE IGM (test code = HBCMAB) NONREACTI VE AB HEPATITIS C (test code = HCVAB) NONREACTIVE SIGNAL TO CUTOFF (test code = CUTOFF) <0.80 UA RFLX MICR CULT IF [id number] 10:55:00* Test Item Value Reference Range Interpretation Comments UA COLOR (test code = COLU) YELLOW YELLOW UA APPEARANCE (test code = APPU) CLOUDY CLEAR A UA GLUCOSE DIPSTICK (test code = DGLUU) NEGATIVE NEG UA BILIRUBIN DIPSTICK (test code = BILU) NEGATIVE NEG UA KETONE DIPSTICK (test code = KETU) NEGATIVE NEG UA SPECIFIC GRAVITY (test code = SGU) 1.017 1.001-1.035 N UA BLOOD DIPSTICK (test code = ZABRINA) NEG NEG UA PH DIPSTICK (test code = ROC) 8.0 5-9 UA PROTEIN DIPSTICK (test code = PROU) 1+ NEG A UA UROBILINIOGEN DIPSTICK (test code = URO) 1.0 mg/dL NEG UA NITRITE DIPSTICK (test code = NUAR) NEG NEG UA LEUKOCYTE ESTERASE DIPSTICK (test code = LEUU) NEG NEG UA WBC (test code = WBCU) 3-5 #/hpf NONE SEEN A UA RBC (test code = RBCU) 0-2 #/hpf NONE SEEN UA EPITHELIAL CELLS (test code = EPIU) TOO NUMEROUS TO CNT #/HPF RA RE-FEW A UA BACTERIA (test code = BACU) FEW /HPF RARE-FEW UA MUCUS (test code = MUCU) RARE NONE SEEN [id number] 10:43:00* Test Item Value Reference Range Interpretation Comments ALCOHOL (test code = ALC) <2.99 mg/dL < 3 TH IS RESULT IS FOR MEDICAL PURPOSES ONLY The pharmacological response to blood alcohol levels mayvary from individual to individual. Signs of intoxicationcan be observed at levels of 50- 100 mg/dL COMPREHENSIVE METABOLIC [id number] 10:36:00* Test Item Value Reference Range Interpretation Comments SODIUM (test code = NA) 136 mEq/L 135-145 N POTASSIUM (test code = K) 5.4 mEq/L 3.5-5.0 H CHLORIDE (test code = CL) 102 mEq/L 100-115 N CARBON DIOXIDE (test code = CO2) 27 mEq/L 22-31 N ANION GAP (test code = GAP) 12.00 10-20 N GLUCOSE (test code = GLU) 95 mg/dL 65-110 N BLOOD UREA NITROGEN (test code = BUN) 12 mg/dL 7-18 N GLOMERULAR FILTRATION RATE (test code = GFR) 99 ml/min >60 N CREATININE (test code = CREAT) 0.7 mg/dL 0.5-1.0 N TOTAL PROTEIN (test code = PROT) 8.2 gm/dL 6.3-8.2 N ALBUMIN (test code = ALB) 3.6 gm/dL 3.4-4.8 N CALCIUM (test code = CA) 9.2 mg/dL 8.4-10.2 N BILIRUBIN TOTAL (test code = BILT) 0.5 mg/dL 0.2-1.0 N SGOT/AST (test code = AST) 52 units/L 15-37 H SGPT/ALT (test code = ALT) 69 units/L 12-78 N ALKALINE PHOSPHATASE TOTAL (test code = ALKP) 99 units/L 46-116 N [id number] 10:36:00* Test Item Value Reference Range Interpretation Comments AMYLASE (test code = JACQUELIN) 39 units/L 30-110 N [id number] 10:36:00* Test Item Value Reference Range Interpretation Comments LIPASE (test code = LIP) 84 units/L 73-393 N CBC W/AUTO [id number] 10:16:00* Test Item Value Reference Range Interpretation Comments WHITE BLOOD CELL (test code = WBC) 11.4 K/mm3 6.6-12.1 N RED BLOOD CELL (test code = RBC) 4.16 M/mm3 3.45-5.01 N HEMOGLOBIN (test code = HGB) 11.5 g/dL 10.7-13.9 N HEMATOCRIT (test code = HCT) 37.0 % 32.1-42.1 N MEAN CELL VOLUME (test code = MCV) 89 fL 84.1-94.8 N MEAN CELL HGB (test code = MCH) 27.6 pg 27-35 N MEAN CELL HGB CONCETRATION (test code = MCHC) 31.1 gm/dL 32.2-34. 1 L RED CELL DISTRIBUTION WIDTH (test code = RDW) 17.6 % 12.4-16. 5 H PLATELET COUNT (test code = PLT) 398 K/mm3 133-385 H IMMATURE PLATELET FRACTION (test code = IPF) 0.0 % 0.0-10.8 N MEAN PLATELET VOLUME (test code = MPV) 11.3 fl 9.1-12.7 N NEUTROPHIL % (test code = NT%) 76.9 % 56.5-79.4 N LYMPHOCYTE % (test code = LY%) 14.5 % 14.3-34.3 N MONOCYTE % (test code = MO%) 3.7 % 5.1-10.4 L EOSINOPHIL % (test code = EO%) 4.3 % 0.1-3.0 H BASOPHIL % (test code = BA%) 0.4 % 0.1-1.0 N NEUTROPHIL # (test code = NT#) 8.8 K/mm3 LYMPHOCYTE # (test code = LY#) 1.7 K/mm3 MONOCYTE # (test code = MO#) 0.4 K/mm3 EOSINOPHIL # (test code = EO#) 0.49 K/mm3 BASOPHIL # (test code = BA#) 0.1 K/mm3 RBC MORPHOLOGY REQUIRED (test code = RBCM) NORMAL NORMAL PLATELET MORPHOLOGY REQUIRED (test code = PLTMR) NORMAL IBAN L [id number] 09:43:00* Test Item Value Reference Range Interpretation Comments GLUBED (test code = GLUBED) 93 mg/dL 65-110 N APPENDIX,NOT [id number] 14:11:00 RUN DATE: 05/23/18 [facility] PAGE 1 RUN TIME: 1807 Specimen Inqui ry RUN USER: INTERFACE PATIENT: HOLLEY GAYLE ACCT #: [id number] LOC: ALEXY U #: [id number] AGE/SX: 27/F ROOM: [facility] RE05/18/18REG DR: Deon Rodriguez : 86 BED: A DIS: 05/19/18 STATUS: DIS IN TLOC: SPEC #: [id number] RECD: 05/18/18 STATUS: MARLONIgor KAMRON #: [id number] YASHIRA: 05/18/18- SUBM DR: Deon Rodriguez MD ENTERED: 05/18/18 SP TYPE: APPIII OTHR DR: Ede Pat MD, Zohra F DOORDERED: LEVEL III SURGI CODES: [id number] - APPENDIX, NOS COPIES TO: Ede Lemons MD [address] [facility] [address] [place] [address] Deon Rodriguez MD [address] [facility] [address] [place] [address] [email or web address] Asencio DO [address] [facility] [address] [place] [address] PROCEDURES: LEVEL III SURG I (Incomplete) TISSUES: APPENDIX, NOS - APPENDIX CLINICAL HIST ORY 27 year old, abdominal pain (wpd) FINAL DIAGNOSIS Appendix, a ppendectomy: - serosal congestion and a few adhesions Tissue code 1 CPT code(s): 26888 cds/kr dt: 05/20/18 * * CONTINUED ON NEXT PAGE RUN DATE: 05/23/18 [facility] PAGE 2 RUN TIME: 1807 Specimen Inquiry RUN USER: INTERFACE SPEC #: [id number] PATIENT: HOLLEY GAYLE #[id number] (Continued)-------- ---- GROSS DESCRIPTION ANATOMIC SOURCE OF [...] venkat/marie dt: 05/20/18------ ------ Signed Elpidio Abebe Khari 1411 END OF REPORT UR HCG [id number] 09:50:00* Test Item Value Reference Range Interpretation Comments UR HCG QUAL (test code = HCGQLU) NEGATIVE 1. Very dilute urine specimens, as indicated by a lowspecific gravity, may not contain banking representative levels ofhCG. 2. False negative results may occur when the levels of hCGare below the sensitivity level of the test. If is still suspected, a first morningurine specimen should be collected 48 hours later andtested. COMPREHENSIVE METABOLIC [id number] 05:29:00* Test Item Value Reference Range Interpretation Comments SODIUM (test code = NA) 138 mEq/L 135-145 N POTASSIUM (test code = K) 3.8 mEq/L 3.5-5.0 N CHLORIDE (test code = CL) 103 mEq/L 100-115 N CARBON DIOXIDE (test code = CO2) 32 mEq/L 22-31 H ANION GAP (test code = GAP) 6.80 10-20 L GLUCOSE (test code = GLU) 72 mg/dL 65-110 N BLOOD UREA NITROGEN (test code = BUN) 5 mg/dL 7-18 L GLOMERULAR FILTRATION RATE (test code = GFR) 118 ml/min >60 N CREATININE (test code = CREAT) 0.6 mg/dL 0.5-1.0 N TOTAL PROTEIN (test code = PROT) 6.6 gm/dL 6.3-8.2 N ALBUMIN (test code = ALB) 3.0 gm/dL 3.4-4.8 L CALCIUM (test code = CA) 8.6 mg/dL 8.4-10.2 N BILIRUBIN TOTAL (test code = BILT) 0.6 mg/dL 0.2-1.0 N SGOT/AST (test code = AST) 97 units/L 15-37 H SGPT/ALT (test code = ALT) 209 units/L 12-78 H ALKALINE PHOSPHATASE TOTAL (test code = ALKP) 128 units/L 46-116 H [id number] 05:29:00* Test Item Value Reference Range Interpretation Comments AMYLASE (test code = JACQUELIN) 35 units/L 30-110 [id number] 05:29:00* Test Item Value Reference Range Interpretation Comments LIPASE (test code = LIP) 50 units/L 73-393 L - XR CHEST 1 [id number] 21:33:00 Patient Name: HOLLEY GAYLE Unit No: [id number] EXAMS: CPT CODE: [id number] XR CHEST 1 V 38273 CHEST, ONE VIEW: HISTORY: Acute shortness of [...] DO Technologist: RT Maegan Trnscrbd D/ (2132) Kavon Pringle Print D/T: S: 05/17/2018 (2136) [facility] NAME: HOLLEY GAYLE Radiology Department PHYS: Ede Marte MD [address] : 1990 AGE: 27 SEX: F [place], [place] [address] LOC: Carlos2624 A PHONE #: [phone] EXAM DATE: 05/17/2018 STATUS: ADM IN FAX #: [phone] RAD NO: Page 1 Signed Report - US ABDOMEN [id number] 09:29:00 Patient Name: HOLLEY GAYLE Unit No: [id number] EXAMS: CPT CODE: [id number] US ABDOMEN LTD 50256 US of the right upper quadrant performed [...] Technologist: Mariela Chilel RDMS Probe: Trnscrbd D/ (0929) t.JUAN Orig Print D/T: S: 05/17/2018 (0932) [facility] NAME: HOLLEY GAYLE Radiology Department PHYS: Micah Aj [address] : 1990 AGE: 27 SEX: F [place], [place] [address] LOC: CarlosERS PHONE #: [phone] EXAM DATE: 05/17/2018 STATUS: REG ER FAX #: [phone] RAD NO: Page 1 Signed Report Patient Name: HOLLEY GAYLE Unit No: [id number] EXAMS: CPT CO DE: [id number] US ABDOMEN LTD 69146 <Continued> [facility] NAME: HOLLEY GAYLE Radiology Department PHYS: Micah Aj [address] : 1990 AGE: 27 SEX: F [place], [place] [address] LOC: RADHA PHONE #: [phone] EXAM DATE: 05/17/2018 STATUS: REG ER FAX #: [phone] RAD NO: Page 2 Signed Report COMPREHENSIVE METABOLIC [id number] 08:53:00* Test Item Value Reference Range Interpretation Comments SODIUM (test code = NA) 137 mEq/L 135-145 N POTASSIUM (test code = K) 3.7 mEq/L 3.5-5.0 N CHLORIDE (test code = CL) 102 mEq/L 100-115 N CARBON DIOXIDE (test code = CO2) 29 mEq/L 22-31 N ANION GAP (test code = GAP) 9.90 10-20 L GLUCOSE (test code = GLU) 93 mg/dL 65-110 N BLOOD UREA NITROGEN (test code = BUN) 10 mg/dL 7-18 N GLOMERULAR FILTRATION RATE (test code = GFR) 99 ml/min >60 N CREATININE (test code = CREAT) 0.7 mg/dL 0.5-1.0 N TOTAL PROTEIN (test code = PROT) 7.8 gm/dL 6.3-8.2 N ALBUMIN (test code = ALB) 3.7 gm/dL 3.4-4.8 N CALCIUM (test code = CA) 9.1 mg/dL 8.4-10.2 N BILIRUBIN TOTAL (test code = BILT) 0.5 mg/dL 0.2-1.0 N SGOT/AST (test code = AST) 22 units/L 15-37 N SGPT/ALT (test code = ALT) 49 units/L 12-78 N ALKALINE PHOSPHATASE TOTAL (test code = ALKP) 104 units/L 46-116 N LIPID PROFILE (CORONARY RISK)2018-05-17 08:53:00* Test Item Value Reference Range Interpretation Comments TRIGLYCERIDES (test code = TRIG) 49 mg/dL Normal < 150 Borderline high 150 - 199 High 200 - 499 Very High > 500 CHOLESTEROL (test code = CHOL) 236 mg/dL 120-200 H HDL CHOLESTEROL (test code = HDL) 83 mg/dL H HDL <40 = Low HDL Cholesterolhdl >60 = High HDL CholesterolSource: NCEP-ATPIII LIPOPROTEIN LDL (test code = LDL) 144 mg/dL H <130 (DESIRABLE) 130-159 (BORDERLINE) >=160 (HIGH) [id number] 08:53:00* Test Item Value Reference Range Interpretation Comments AMYLASE (test code = JACQUELIN) 158 units/L 30-110 H [id number] 08:53:00* Test Item Value Reference Range Interpretation Comments LIPASE (test code = LIP) 1009 units/L 73-393 H COMPREHENSIVE METABOLIC [id number] 08:00:00* Test Item Value Reference Range Interpretation Comments SODIUM (test code = NA) 137 mEq/L 135-145 N POTASSIUM (test code = K) 3.7 mEq/L 3.5-5.0 N CHLORIDE (test code = CL) 102 mEq/L 100-115 N CARBON DIOXIDE (test code = CO2) 29 mEq/L 22-31 N ANION GAP (test code = GAP) 9.90 10-20 L GLUCOSE (test code = GLU) 93 mg/dL 65-110 N BLOOD UREA NITROGEN (test code = BUN) 10 mg/dL 7-18 N GLOMERULAR FILTRATION RATE (test code = GFR) 99 ml/min >60 N CREATININE (test code = CREAT) 0.7 mg/dL 0.5-1.0 N TOTAL PROTEIN (test code = PROT) 7.8 gm/dL 6.3-8.2 N ALBUMIN (test code = ALB) 3.7 gm/dL 3.4-4.8 N CALCIUM (test code = CA) 9.1 mg/dL 8.4-10.2 N BILIRUBIN TOTAL (test code = BILT) 0.5 mg/dL 0.2-1.0 N SGOT/AST (test code = AST) 22 units/L 15-37 N SGPT/ALT (test code = ALT) 49 units/L 12-78 N ALKALINE PHOSPHATASE TOTAL (test code = ALKP) 104 units/L 46-116 N [id number] 08:00:00* Test Item Value Reference Range Interpretation Comments LIPASE (test code = LIP) 1009 units/L 73-393 H DRUGS OF ABUSE [id number] 07:48:00* Test Item Value Reference Range Interpretation Comments UR COCAINE (test code = COCAU) NEGATIVE NEGATIVE DETECTION CUT OFF: 150 ng/mL UR CANNABINOIDS (test code = CANU) POSITIVE NEGATIVE A RESULTS CALLED TO MORENA BILLINGSREAD BACK & CONFIRMED? Y.BY FSmithLAB.T 05/17/18745. DETECTION CUT OFF: 50 ng/mL UR AMPHETAMINE (test code = AMPHU) NEGATIVE NEGATIVE DETECTION CUT OFF: 500 ng/mL UR BARBITURATE QUAL (test code = BARBQLU) NEGATIVE NEGATIVE DETECTION CUT OFF: 200 ng/mL UR BENZODIAZEPINE (test code = BENZU) POSITIVE NEGATIVE A RESULTS CALLED TO MORENA BILLINGSREAD BACK & CONFIRMED? Y.BY FSmithLAB.T 05/17/18747. DETECTION CUT OFF: 150 ng/mLPreviously reported result: NEGATIVE Edited by: [email or web address].LDT on 05/17/18:0748BENZU prev. reported as:NEGATIVE . . UR OPIATES QUAL (test code = OPIAQLU) NEGATIVE NEGATIVE DETECTION CUT OFF: 100 ng/mL UR PHENCYCLIDINE (PCP) (test code = PHENCU) NEGATIVE NEGATIVE DETECTION CUT OFF: 25 ng/mL DRUGS OF ABUSE [id number] 07:46:00* Test Item Value Reference Range Interpretation Comments UR COCAINE (test code = COCAU) NEGATIVE NEGATIVE DETECTION CUT OFF: 150 ng/mL UR CANNABINOIDS (test code = CANU) POSITIVE NEGATIVE A RESULTS CALLED TO MORENA BILLINGSREAD BACK & CONFIRMED? Y.BY FSmithLAB.T 05/17/18745. DETECTION CUT OFF: 50 ng/mL UR AMPHETAMINE (test code = AMPHU) NEGATIVE NEGATIVE DETECTION CUT OFF: 500 ng/mL UR BARBITURATE QUAL (test code = BARBQLU) NEGATIVE NEGATIVE DETECTION CUT OFF: 200 ng/mL UR BENZODIAZEPINE (test code = BENZU) NEGATIVE NEGATIVE DETECTION CUT OFF: 150 ng/mL UR OPIATES QUAL (test code = OPIAQLU) NEGATIVE NEGATIVE DETECTION CUT OFF: 100 ng/mL UR PHENCYCLIDINE (PCP) (test code = PHENCU) NEGATIVE NEGATIVE DETECTION CUT OFF: 25 ng/mL UA RFLX MICR CULT IF [id number] 07:42:00* Test Item Value Reference Range Interpretation Comments UA COLOR (test code = COLU) YELLOW YELLOW UA APPEARANCE (test code = APPU) CLOUDY CLEAR A UA GLUCOSE DIPSTICK (test code = DGLUU) NEGATIVE NEG UA BILIRUBIN DIPSTICK (test code = BILU) NEGATIVE NEG UA KETONE DIPSTICK (test code = KETU) NEGATIVE NEG UA SPECIFIC GRAVITY (test code = SGU) 1.016 1.001-1.035 N UA BLOOD DIPSTICK (test code = ZABRINA) NEG NEG UA PH DIPSTICK (test code = ROC) 7.0 5-9 UA PROTEIN DIPSTICK (test code = PROU) NEGATIVE NEG UA UROBILINIOGEN DIPSTICK (test code = URO) 1.0 mg/dL NEG UA NITRITE DIPSTICK (test code = NURA) NEG NEG UA LEUKOCYTE ESTERASE DIPSTICK (test code = LEUU) NEG NEG UA WBC (test code = WBCU) 0-2 #/hpf NONE SEEN UA RBC (test code = RBCU) 0-2 #/hpf NONE SEEN UA EPITHELIAL CELLS (test code = EPIU) MODERATE #/HPF RARE-FEW A UA BACTERIA (test code = BACU) RARE /HPF RARE-FEW UA MUCUS (test code = MUCU) RARE NONE SEEN CBC W/AUTO [id number] 07:34:00* Test Item Value Reference Range Interpretation Comments WHITE BLOOD CELL (test code = WBC) 10.4 K/mm3 6.6-12.1 N RED BLOOD CELL (test code = RBC) 4.14 M/mm3 3.45-5.01 N HEMOGLOBIN (test code = HGB) 11.2 g/dL 10.7-13.9 N HEMATOCRIT (test code = HCT) 36.8 % 32.1-42.1 N MEAN CELL VOLUME (test code = MCV) 89 fL 84.1-94.8 N MEAN CELL HGB (test code = MCH) 27.1 pg 27-35 N MEAN CELL HGB CONCETRATION (test code = MCHC) 30.4 gm/dL 32.2-34. 1 L RED CELL DISTRIBUTION WIDTH (test code = RDW) 16.9 % 12.4-16. 5 H PLATELET COUNT (test code = PLT) 403 K/mm3 133-385 H IMMATURE PLATELET FRACTION (test code = IPF) 0.0 % 0.0-10.8 N MEAN PLATELET VOLUME (test code = MPV) 10.7 fl 9.1-12.7 N NEUTROPHIL % (test code = NT%) 71.9 % 56.5-79.4 N LYMPHOCYTE % (test code = LY%) 20.0 % 14.3-34.3 N MONOCYTE % (test code = MO%) 4.9 % 5.1-10.4 L EOSINOPHIL % (test code = EO%) 2.4 % 0.1-3.0 N BASOPHIL % (test code = BA%) 0.4 % 0.1-1.0 N NEUTROPHIL # (test code = NT#) 7.5 K/mm3 LYMPHOCYTE # (test code = LY#) 2.1 K/mm3 MONOCYTE # (test code = MO#) 0.5 K/mm3 EOSINOPHIL # (test code = EO#) 0.25 K/mm3 BASOPHIL # (test code = BA#) 0.0 K/mm3 RBC MORPHOLOGY REQUIRED (test code = RBCM) NORMAL NORMAL PLATELET MORPHOLOGY REQUIRED (test code = PLTMR) NORMAL IBAN L URINALYSIS [id number] 09:33:00* Test Item Value Reference Range Interpretation Comments UA COLOR (test code = COLU) YELLOW YEL/STRAW UA APPEARANCE (test code = APPU) CLEAR CLEAR UA GLUCOSE DIPSTICK (test code = DGLUU) NEGATIVE NEGATIVE UA BILIRUBIN DIPSTICK (test code = BILU) NEGATIVE NEGATIVE UA KETONE DIPSTICK (test code = KETU) NEGATIVE NEGATIVE UA SPECIFIC GRAVITY (test code = SGU) 1.014 1.005-1.030 N UA BLOOD DIPSTICK (test code = ZABRINA) NEGATIVE NEGATIVE UA PH DIPSTICK (test code = ROC) 6.0 5.0-7.0 N UA PROTEIN DIPSTICK (test code = PROU) NEGATIVE NEGATIVE UA UROBILINIOGEN DIPSTICK (test code = URO) 2.0 mg/dL 0.2-1.0 A UA NITRITE DIPSTICK (test code = NURA) NEGATIVE NEGATIVE UA LEUKOCYTE ESTERASE DIPSTICK (test code = LEUU) NEGATIVE NEGA TIVE UA WBC (test code = WBCU) 0-3 WBC/HPF 0-3 UA RBC (test code = RBCU) 0-3 RBC/HPF 0-3 UA BACTERIA (test code = BACU) TRACE /HPF NONE SEEN UA SQUAMOUS CELLS (test code = SQU) 0-5 /HPF NONE SEEN UA MUCUS (test code = MUCU) TRACE /LPF NONE SEEN UR HCG [id number] 09:23:00* Test Item Value Reference Range Interpretation Comments UR HCG QUAL (test code = HCGQLU) NEGATIVE NEGATIVE COMPREHENSIVE METABOLIC [id number] 10:14:00* Test Item Value Reference Range Interpretation Comments SODIUM (test code = NA) 138 mEq/L 134-147 N POTASSIUM (test code = K) 4.0 mEq/L 3.4-5.0 N CHLORIDE (test code = CL) 107 mEq/L 100-108 N CARBON DIOXIDE (test code = CO2) 27 mEq/L 21-33 N ANION GAP (test code = GAP) 8 0-20 N GLUCOSE (test code = GLU) 94 mg/dL 70-110 N BLOOD UREA NITROGEN (test code = BUN) 11 mg/dL 7-18 N GLOMERULAR FILTRATION RATE (test code = GFR) 145.9 110-120 H Units of measure = ml/min/1.73 m2 CREATININE (test code = CREAT) 0.5 mg/dL 0.6-1.3 L TOTAL PROTEIN (test code = PROT) 8.0 g/dL 6.4-8.2 N ALBUMIN (test code = ALB) 3.80 g/dL 3.4-5.0 N CALCIUM (test code = CA) 8.9 mg/dL 8.0-10.5 N BILIRUBIN TOTAL (test code = BILT) 0.30 mg/dL 0.0-1.0 SGOT/AST (test code = AST) 24 IUnit/L 15-37 N SGPT/ALT (test code = ALT) 22 IUnit/L 15-65 N ALKALINE PHOSPHATASE TOTAL (test code = ALKP) 97 IUnit/L 20-125 N [id number] 10:14:00* Test Item Value Reference Range Interpretation Comments LIPASE (test code = LIP) 214 IUnit/L 73-393 COMPREHENSIVE METABOLIC [id number] 10:11:00* Test Item Value Reference Range Interpretation Comments SODIUM (test code = NA) 138 mEq/L 134-147 N POTASSIUM (test code = K) 4.0 mEq/L 3.4-5.0 N CHLORIDE (test code = CL) 107 mEq/L 100-108 N CARBON DIOXIDE (test code = CO2) 27 mEq/L 21-33 N ANION GAP (test code = GAP) 8 0-20 N GLUCOSE (test code = GLU) 94 mg/dL 70-110 N BLOOD UREA NITROGEN (test code = BUN) 11 mg/dL 7-18 N GLOMERULAR FILTRATION RATE (test code = GFR) 145.9 110-120 H Units of measure = ml/min/1.73 m2 CREATININE (test code = CREAT) 0.5 mg/dL 0.6-1.3 L TOTAL PROTEIN (test code = PROT) g/dL 6.4-8.2 ALBUMIN (test code = ALB) 3.80 g/dL 3.4-5.0 N CALCIUM (test code = CA) 8.9 mg/dL 8.0-10.5 N BILIRUBIN TOTAL (test code = BILT) mg/dL 0.0-1.0 SGOT/AST (test code = AST) 24 IUnit/L 15-37 N SGPT/ALT (test code = ALT) 22 IUnit/L 15-65 N ALKALINE PHOSPHATASE TOTAL (test code = ALKP) IUnit/L 20-125 [id number] 10:11:00* Test Item Value Reference Range Interpretation Comments LIPASE (test code = LIP) 214 IUnit/L 73-393 CBC W/AUTO [id number] 09:48:00* Test Item Value Reference Range Interpretation Comments WHITE BLOOD CELL (test code = WBC) 7.27 x10 3/uL 4.5-11.0 N RED BLOOD CELL (test code = RBC) 3.98 x10 6/uL 3.54-5.02 N HEMOGLOBIN (test code = HGB) 11.2 g/dL 11.0-15.0 N HEMATOCRIT (test code = HCT) 35.9 % 33.0-45.0 N MEAN CELL VOLUME (test code = MCV) 90.2 fL 81.0-99.0 N MEAN CELL HGB (test code = MCH) 28.1 pg 27.0-33.0 N MEAN CELL HGB CONCETRATION (test code = MCHC) 31.2 g/dL 33.0-37. 0 L RED CELL DISTRIBUTION WIDTH CV (test code = RDW) 16.9 % 11.5- 14.5 H RED CELL DISTRIBUTION WIDTH SD (test code = RDW-SD) 55.9 fL 37 .0-54.0 H PLATELET COUNT (test code = PLT) 338 x10 3/uL 150-400 N MEAN PLATELET VOLUME (test code = MPV) 11.4 fL 7.0-9.0 H NEUTROPHIL % (test code = NT%) 77.0 % 56.0-77.0 N IMMATURE GRANULOCYTE % (test code = IG%) 0.3 % 0.0-2.0 N LYMPHOCYTE % (test code = LY%) 15.8 % 14.0-32.0 N MONOCYTE % (test code = MO%) 4.3 % 4.8-9.0 L EOSINOPHIL % (test code = EO%) 2.2 % 0.3-3.7 N BASOPHIL % (test code = BA%) 0.4 % 0.0-2.0 N NUCLEATED RBC % (test code = NRBC%) 0.0 % 0-0 N NEUTROPHIL # (test code = NT#) 5.60 x10 3/uL 2.0-7.6 N IMMATURE GRANULOCYTE # (test code = IG#) 0.02 x10 3/uL 0.00-0.03 N LYMPHOCYTE # (test code = LY#) 1.15 x10 3/uL 1.0-3.8 N MONOCYTE # (test code = MO#) 0.31 x10 3/uL 0.1-0.8 N EOSINOPHIL # (test code = EO#) 0.16 x10 3/uL 0.0-0.2 N BASOPHIL # (test code = BA#) 0.03 x10 3/uL 0.0-0.2 N NUCLEATED RBC # (test code = NRBC#) 0.00 x10 3/uL 0.0-0.1 N MANUAL DIFF REQUIRED (test code = MDIFF) NO - CT ABD PELVIS W/O [id number] 23:09:00 Name: NALINIHOLLEY LEE [facility] : 1990 Age/S: 27 / F [address] [place] [address] Unit #: [id number] Loc: [place] [address] Phys: Hilario Perdue MD Acct: [id number] Dis Date: Status: REG ER PHONE #: [phone] Exam Date: 05/02/20182246 FAX #: [phone] Reason: abdominal pain EXAMS: CPT CODE: [id number] CT ABD PELVIS W/O CONT 00777 PROCEDURE: CT ABDOMEN AND PELVIS WITHOUT CONTRAST 05/02/2018 INDICATION: Right lower quadrant abdominal pain for one month. Past history of hysterectomy, cholecystectomy and surgery. COMPARISON: Abdomen CT 01/16/2018. NOTE: Please note that this will constitute CT #19 of the abdomen and pelvis performed at a [facility] institution alone since 01/19/2010. TECHNIQUE: Helical imaging was performed diaphragm through the symphysis with axial and coronal reformations obtained. IV CONTRAST: None. GI CONTRAST: 10 mL Gastrografin diluted in water. The patient was unable to tolerate oral contrast. DLP= 614.15 mGy-cm FINDINGS: This examination is limited for the evaluation of solid organs and vascular structures due to lack of intravenous contrast. LOWER CHEST: Clear lungs with mild dependent subsegmental atelectasis. No pleural or pericardial effusion. No adenopathy. SOLID ORGANS: Cholecystecto my without biliary dilatation. The liver, gallbladder, spleen, pancreas, adrenal glands and kidneys show no gross focal abnormality. No renal or ur eteral calculi. BOWEL: Nonobstructive bowel gas pattern without pn eumatosis or portal venous air. Nonopacified, noninflamed appendix. Mild c olonic diverticulosis with no signs of diverticulitis. Normal caliber smal l bowel. PERITONEUM: No free intraperitoneal fluid or air. RETROPERITONEUM: No adenopathy. The aorta is normal. PELVIS: No pelvic mass. The urinary bladder is normal. Absent uterus. MUSCULOSKELETAL: No destructive bone lesions. IMPRESSION: 1. No acute CT explanation for the patient's symptoms. 2. Constip ation and mild colonic diverticulosis. 3. No signs of appendicitis. 4. Cholecystectomy and hysterectomy. PAGE 1 Richard d Report (CONTINUED) Name: HOLLEY GAYLE [facility] : 1990 Age/S: 27 / F [address] [place] [address] Unit #: [id number] Loc: [place] [address] Phys: Hilario Perdue MD Acct: [id number] Dis Date: Status: REG ER PHONE #: [phone] Exam Date: 05/02/2018 2 247 FAX #: [phone] Reason: abdominal pain EXAMS: CPT CODE: [id number] CT ABD PELVIS W/O CONT 85529 <Continued> ____ CT imaging performed at this location utilizes radiation dose optimization techniques which include one or more of the following: - Automated exposure control -Adjustment of the mA and/or kV according to patient size -Use of iterative reconstruction technique SL: ER- at 2309 Reported and signed by: Miguel Alaniz M.D. CC: Hilario Perdue MD Technologist:RT Henrry(R) CTDI: DLP: Trnscb Date/Time: 05/02/2018 (2308) [email or web address] Orig Print D/T: S: 05/02/2018 (2311) CTDI: DLP: PAGE 2 Signed Report HEPATIC FUNCTION [id number] 22:11:00* Test Item Value Reference Range Interpretation Comments TOTAL PROTEIN (test code = PROT) 8.2 g/dL 6.4-8.2 N ALBUMIN (test code = ALB) 3.90 g/dL 3.4-5.0 N BILIRUBIN TOTAL (test code = BILT) 0.50 mg/dL 0.0-1.0 N BILIRUBIN DIRECT (test code = BILD) < 0.10 MG/DL 0.0-0.30 N BILIRUBIN INDIRECT (test code = BILIND) 0.40 MG/DL SGOT/AST (test code = AST) 19 IUnit/L 15-37 N SGPT/ALT (test code = ALT) 30 IUnit/L 15-65 N ALKALINE PHOSPHATASE TOTAL (test code = ALKP) 106 IUnit/L 20-125 N [id number] 22:11:00* Test Item Value Reference Range Interpretation Comments LIPASE (test code = LIP) 107 IUnit/L 73-393 N [id number] 22:11:00* Test Item Value Reference Range Interpretation Comments TROPONIN-I (test code = TROPI) < 0.015 ng/mL 0.000-0.045 N Negative: <= 0.045 Positive: >= 0.046 Correlation with serial results, other cardiac markers andclinical findings is necessary to determine the clinicalsignificance of this result. Results using different methodologies should not be comparedto one another as quantitative results may vary by method. UR HCG [id number] 21:48:00* Test Item Value Reference Range Interpretation Comments UR HCG QUAL (test code = HCGQLU) NEGATIVE NEGATIVE CBC W/AUTO [id number] 21:43:00* Test Item Value Reference Range Interpretation Comments WHITE BLOOD CELL (test code = WBC) 9.49 x10 3/uL 4.5-11.0 N RED BLOOD CELL (test code = RBC) 4.05 x10 6/uL 3.54-5.02 N HEMOGLOBIN (test code = HGB) 11.3 g/dL 11.0-15.0 N HEMATOCRIT (test code = HCT) 35.9 % 33.0-45.0 N MEAN CELL VOLUME (test code = MCV) 88.6 fL 81.0-99.0 N MEAN CELL HGB (test code = MCH) 27.9 pg 27.0-33.0 N MEAN CELL HGB CONCETRATION (test code = MCHC) 31.5 g/dL 33.0-37. 0 L RED CELL DISTRIBUTION WIDTH CV (test code = RDW) 16.5 % 11.5- 14.5 H RED CELL DISTRIBUTION WIDTH SD (test code = RDW-SD) 53.3 fL 37 .0-54.0 N PLATELET COUNT (test code = PLT) 348 x10 3/uL 150-400 N MEAN PLATELET VOLUME (test code = MPV) 11.2 fL 7.0-9.0 H NEUTROPHIL % (test code = NT%) 76.3 % 56.0-77.0 N IMMATURE GRANULOCYTE % (test code = IG%) 0.3 % 0.0-2.0 N LYMPHOCYTE % (test code = LY%) 19.6 % 14.0-32.0 N MONOCYTE % (test code = MO%) 3.6 % 4.8-9.0 L EOSINOPHIL % (test code = EO%) 0.1 % 0.3-3.7 L BASOPHIL % (test code = BA%) 0.1 % 0.0-2.0 N NUCLEATED RBC % (test code = NRBC%) 0.0 % 0-0 N NEUTROPHIL # (test code = NT#) 7.24 x10 3/uL 2.0-7.6 N IMMATURE GRANULOCYTE # (test code = IG#) 0.03 x10 3/uL 0.00-0.03 N LYMPHOCYTE # (test code = LY#) 1.86 x10 3/uL 1.0-3.8 N MONOCYTE # (test code = MO#) 0.34 x10 3/uL 0.1-0.8 N EOSINOPHIL # (test code = EO#) 0.01 x10 3/uL 0.0-0.2 N BASOPHIL # (test code = BA#) 0.01 x10 3/uL 0.0-0.2 N NUCLEATED RBC # (test code = NRBC#) 0.00 x10 3/uL 0.0-0.1 N MANUAL DIFF REQUIRED (test code = MDIFF) NO TROPONIN-I [id number] 21:28:00* Test Item Value Reference Range Interpretation Comments TROPONIN-I RAPID (test code = TROPIRAP) 0.00 ng/mL 0.00-0.08 N Performed by certified automatic coil machine operator [facility] Global Task Force with joint leadership from the EuropeanSociety of Cardiology (ESC), the [place] [employer] Foundation (ACCF), the [place] Heart Association(AHA) and the World Heart Federation (WHF) refined past criteria of myocardial infarction (CT) with a universal definition of myocardial infarction that supports the use of cTnI as a preferred biomarker for myocardial injury. The universal definition of CT, according to this taskforce, is defined as [...] temporal changes in troponin levels characteristic of CT. URINALYSIS [id number] 20:54:00* Test Item Value Reference Range Interpretation Comments UA COLOR (test code = COLU) YELLOW YEL/STRAW UA APPEARANCE (test code = APPU) SL CLOUDY CLEAR UA GLUCOSE DIPSTICK (test code = DGLUU) NEGATIVE NEGATIVE UA BILIRUBIN DIPSTICK (test code = BILU) NEGATIVE NEGATIVE UA KETONE DIPSTICK (test code = KETU) NEGATIVE NEGATIVE UA SPECIFIC GRAVITY (test code = SGU) 1.008 1.005-1.030 N UA BLOOD DIPSTICK (test code = ZABRINA) 1+ NEGATIVE A UA PH DIPSTICK (test code = ROC) 7.0 5.0-7.0 N UA PROTEIN DIPSTICK (test code = PROU) NEGATIVE NEGATIVE UA UROBILINIOGEN DIPSTICK (test code = URO) 0.2 mg/dL 0.2-1.0 UA NITRITE DIPSTICK (test code = NURA) NEGATIVE NEGATIVE UA LEUKOCYTE ESTERASE DIPSTICK (test code = LEUU) NEGATIVE NEGA TIVE UA WBC (test code = WBCU) 0-3 WBC/HPF 0-3 UA RBC (test code = RBCU) 0-3 RBC/HPF 0-3 UA BACTERIA (test code = BACU) TRACE /HPF NONE SEEN UA SQUAMOUS CELLS (test code = SQU) 6-10 /HPF NONE SEEN A UA MUCUS (test code = MUCU) TRACE /LPF NONE SEEN COMMENTS: Clean CatchCHEMISTRY 8 [id number] 09:43:00* Test Item Value Reference Range Interpretation Comments ISTAT-SODIUM (test code = NAP) mmol/L 135-146 ISTAT-POTASSIUM (test code = KP) mmol/L 3.5-4.9 ISTAT-CHLORIDE (test code = CLP) mmol/L 98-109 ISTAT-CARBON DIOXIDE (test code = ISTAT-CO2) mmol/L 24-29 N ISTAT CALCIUM IONIZED (test code = ISTAT-RENE) mmol/L 1.12-1.3 2 ISTAT-GLUCOSE (test code = GLUP) mg/dL 70-105 H ISTAT-BUN (test code = BUNP) mg/dL 8-26 L BEDSIDE CREATININE (test code = CREATBED) mg/dL 0.6-1.3 L GLOMERULAR FILTRATION RATE POC (test code = GFRBED) 155 71 -165 N CHEMISTRY 8 [id number] 09:43:00* Test Item Value Reference Range Interpretation Comments ISTAT-SODIUM (test code = NAP) 137 mmol/L 135-146 N ISTAT-POTASSIUM (test code = KP) 3.4 mmol/L 3.5-4.9 L ISTAT-CHLORIDE (test code = CLP) 102 mmol/L 98-109 N ISTAT-CARBON DIOXIDE (test code = ISTAT-CO2) 24 mmol/L 24-29 N ISTAT CALCIUM IONIZED (test code = ISTAT-RENE) 1.14 mmol/L 1.12-1.3 2 N ISTAT-GLUCOSE (test code = GLUP) 106 mg/dL 70-105 H ISTAT-BUN (test code = BUNP) 5 mg/dL 8-26 L BEDSIDE CREATININE (test code = CREATBED) 0.5 mg/dL 0.6-1.3 L GLOMERULAR FILTRATION RATE POC (test code = GFRBED) 155 71 -165 N CBC W/AUTO [id number] 09:43:00* Test Item Value Reference Range Interpretation Comments WHITE BLOOD CELL (test code = WBC) 6.0 K/mm3 3.5-11.0 N RED BLOOD CELL (test code = RBC) 4.07 M/mm3 4.70-6.10 L HEMOGLOBIN (test code = HGB) 12.0 G/DL 10.4-14.9 N HEMATOCRIT (test code = HCT) 35.7 % 31.5-44.1 N MEAN CELL VOLUME (test code = MCV) 87.7 Fl 84.5-98.6 N MEAN CELL HGB (test code = MCH) 29.5 pg 27.0-34.2 N MEAN CELL HGB CONCETRATION (test code = MCHC) 33.6 G/DL 31.5-34. 0 N RED CELL DISTRIBUTION WIDTH (test code = RDW) 17.6 SD 11.5-14. 5 H PLATELET COUNT (test code = PLT) 300.0 K/mm3 150-450 N MEAN PLATELET VOLUME (test code = MPV) 10.10 fL 7.0-10.5 N NEUTROPHIL % (test code = NT%) 72.3 % 40-76 N LYMPHOCYTE % (test code = LY%) 17.4 % 20.5-51.1 L MONOCYTE % (test code = MO%) 7.5 % 1.7-9.3 N EOSINOPHIL % (test code = EO%) 2.5 % 0.0-6.0 N BASOPHIL % (test code = BA%) 0.3 % 0.0-2.0 N NEUTROPHIL # (test code = NT#) 4.33 K/mm3 1.8-7.6 N LYMPHOCYTE # (test code = LY#) 1.0 K/mm3 0.6-3.2 N MONOCYTE # (test code = MO#) 0.5 K/mm3 0.3-1.1 N EOSINOPHIL # (test code = EO#) 0.2 K/mm3 0.0-0.4 N BASOPHIL # (test code = BA#) 0.0 K/mm3 0.0-0.1 N MANUAL DIFF REQUIRED (test code = MDIFF) NO DIFF/SCN CRITERIA URINALYSIS [id number] 09:47:00* Test Item Value Reference Range Interpretation Comments UA COLOR (test code = COLU) YELLOW discript YEL/STRAW UA APPEARANCE (test code = APPU) CLEAR discript CLEAR UA GLUCOSE DIPSTICK (test code = DGLUU) NEGATIVE mg/dL NEG UA BILIRUBIN DIPSTICK (test code = BILU) NEGATIVE mg/dL NEG UA KETONE DIPSTICK (test code = KETU) NEGATIVE mg/dL NEG UA SPECIFIC GRAVITY (test code = SGU) 1.020 SG 1.005-1.030 UA BLOOD DIPSTICK (test code = ZABRINA) NEGATIVE mg/DL NEG UA PH DIPSTICK (test code = ROC) 6.0 pH UNITS 5.0-7.0 UA PROTEIN DIPSTICK (test code = PROU) NEGATIVE mg/dL NEG UA UROBILINIOGEN DIPSTICK (test code = URO) 0.2 mg/dL <2.0 UA NITRITE DIPSTICK (test code = NURA) NEGATIVE SCREEN NEG UA LEUKOCYTE ESTERASE DIPSTICK (test code = LEUU) NEGATIVE Leuk/mcL NEGATIVE DRUGS OF ABUSE SCREEN [id number] 09:47:00* Test Item Value Reference Range Interpretation Comments URN COCAINE (test code = COCAURN) NEGATIVE SCcutoff <300 NG/ML URN CANNABINOIDS (test code = CANNABURN) POSITIVE SCcutoff <50 NG/M L A URN AMPHETAMINE (test code = AMPHETURN) NEGATIVE SCcutoff <1000 NG/ ML URN BARBITURATE (test code = BARBITURN) NEGATIVE SCcutoff <200 NG/M L URN BENZODIAZEPINE (test code = BENZOURN) POSITIVE SCcutoff <200 NG /ML A URN OPIATES (test code = OPIATURN) NEGATIVE SCcutoff <2000 NG/ML URN PHENCYCLIDINE (PCP) (test code = PHENCURN) NEGATIVE SCcutoff <2 5 NG/ML URN METHADONE (test code = METHAURN) NEGATIVE SCcutoff <300 NG/ML BASIC METABOLIC [id number] 09:29:00* Test Item Value Reference Range Interpretation Comments SODIUM (test code = NA) 139 mmol/L 134-147 N POTASSIUM (test code = K) 4.5 mmol/L 3.4-5.0 N CHLORIDE (test code = CL) 109 mmol/L 100-108 H CARBON DIOXIDE (test code = CO2) 24 mmol/L 21-32 N ANION GAP (test code = GAP) 6.0 GAP calc 4.0-15.0 N GLUCOSE (test code = GLU) 86 MG/DL 70-110 N BLOOD UREA NITROGEN (test code = BUN) 12 MG/DL 7-18 N GLOMERULAR FILTRATION RATE (test code = GFR) >=60 max estimate estG FR >60 CREATININE (test code = CREAT) 0.5 MG/DL 0.6-1.0 L CALCIUM (test code = CA) 8.5 MG/DL 8.5-10.1 N HEPATIC FUNCTION [id number] 09:29:00* Test Item Value Reference Range Interpretation Comments TOTAL PROTEIN (test code = PROT) 7.6 G/DL 6.4-8.2 N ALBUMIN (test code = ALB) 3.6 G/DL 3.4-5.0 N BILIRUBIN TOTAL (test code = BILT) 0.20 MG/DL 0.2-1.2 N BILIRUBIN DIRECT (test code = BILD) < 0.10 MG/DL 0.00-0.30 N BILIRUBIN INDIRECT (test code = BILIND) 0.10 MG/DL 0.2-1.2 L SGOT/AST (test code = AST) 24 Unit/L 15-37 N SGPT/ALT (test code = ALT) 64 Unit/L 12-78 N ALKALINE PHOSPHATASE TOTAL (test code = ALKP) 107 Unit/L 45-117 N [id number] 09:29:00* Test Item Value Reference Range Interpretation Comments LIPASE (test code = LIP) 82 Unit/L 114-286 L BASIC METABOLIC [id number] 09:27:00* Test Item Value Reference Range Interpretation Comments SODIUM (test code = NA) 139 mmol/L 134-147 N POTASSIUM (test code = K) 4.5 mmol/L 3.4-5.0 N CHLORIDE (test code = CL) 109 mmol/L 100-108 H CARBON DIOXIDE (test code = CO2) 24 mmol/L 21-32 N ANION GAP (test code = GAP) 6.0 GAP calc 4.0-15.0 N GLUCOSE (test code = GLU) 86 MG/DL 70-110 N BLOOD UREA NITROGEN (test code = BUN) 12 MG/DL 7-18 N GLOMERULAR FILTRATION RATE (test code = GFR) estGFR >60 CREATININE (test code = CREAT) MG/DL 0.6-1.0 CALCIUM (test code = CA) 8.5 MG/DL 8.5-10.1 N HEPATIC FUNCTION [id number] 09:27:00* Test Item Value Reference Range Interpretation Comments TOTAL PROTEIN (test code = PROT) G/DL 6.4-8.2 ALBUMIN (test code = ALB) G/DL 3.4-5.0 BILIRUBIN TOTAL (test code = BILT) MG/DL 0.2-1.2 BILIRUBIN DIRECT (test code = BILD) MG/DL 0.00-0.30 BILIRUBIN INDIRECT (test code = BILIND) MG/DL 0.2-1.2 SGOT/AST (test code = AST) Unit/L 15-37 SGPT/ALT (test code = ALT) Unit/L 12-78 ALKALINE PHOSPHATASE TOTAL (test code = ALKP) Unit/L 45-117 [id number] 09:27:00* Test Item Value Reference Range Interpretation Comments LIPASE (test code = LIP) 82 Unit/L 114-286 L URINALYSIS [id number] 09:25:00* Test Item Value Reference Range Interpretation Comments UA COLOR (test code = COLU) YELLOW discript YEL/STRAW UA APPEARANCE (test code = APPU) CLEAR discript CLEAR UA GLUCOSE DIPSTICK (test code = DGLUU) NEGATIVE mg/dL NEG UA BILIRUBIN DIPSTICK (test code = BILU) NEGATIVE mg/dL NEG UA KETONE DIPSTICK (test code = KETU) NEGATIVE mg/dL NEG UA SPECIFIC GRAVITY (test code = SGU) 1.020 SG 1.005-1.030 UA BLOOD DIPSTICK (test code = ZABRINA) NEGATIVE mg/DL NEG UA PH DIPSTICK (test code = ROC) 6.0 pH UNITS 5.0-7.0 UA PROTEIN DIPSTICK (test code = PROU) NEGATIVE mg/dL NEG UA UROBILINIOGEN DIPSTICK (test code = URO) 0.2 mg/dL <2.0 UA NITRITE DIPSTICK (test code = NURA) NEGATIVE SCREEN NEG UA LEUKOCYTE ESTERASE DIPSTICK (test code = LEUU) NEGATIVE Leuk/mcL NEGATIVE DRUGS OF ABUSE SCREEN [id number] 09:25:00* Test Item Value Reference Range Interpretation Comments URN COCAINE (test code = COCAURN) SCcutoff <300 NG/ML URN CANNABINOIDS (test code = CANNABURN) SCcutoff <50 NG/ML URN AMPHETAMINE (test code = AMPHETURN) SCcutoff <1000 NG/ML URN BARBITURATE (test code = BARBITURN) SCcutoff <200 NG/ML URN BENZODIAZEPINE (test code = BENZOURN) SCcutoff <200 NG/ML URN OPIATES (test code = OPIATURN) SCcutoff <2000 NG/ML URN PHENCYCLIDINE (PCP) (test code = PHENCURN) SCcutoff <25 NG/ ML URN METHADONE (test code = METHAURN) SCcutoff <300 NG/ML - XR ABD ACUTE [id number] 09:19:00 Name: HOLLEY GAYLE [facility] : 1990 Age/S: 27 / F [address] [facility] Unit #: [id number] Loc: [place] [address] Phys: Ranjit Lozano MD Acct: [id number] Dis Date: Status: REG ER PHONE #: [phone] Exam Date: 04/08/2018 0855 FAX #: Reason: abd pain EXAMS: CPT: [id number] XR ABD ACUTE W/CHEST 40382 Fluoro Time: DAP (Gy m2): Air Kerma [...] PAGE 1 Signed Report Name: HOLLEY GAYLE [place] : 1990 Age/S: 27 / F [address] [facility] Unit #: [id number] Loc: [place] [address] Phys: Ranjit Lozano MD Acct: [id number] Dis Date: Status: REG ER PHONE #: [phone] Exam Date: 04/08/2018 0855 FAX #: Reason: abd pain EXAMS: CPT: [id number] XR ABD ACUTE W/CHEST 51037 Fluoro Time: DAP (Gy m2): Air Kerma (mGy): < Continued> Technologist: Brandee Romero RT(R)(CT) Trnscb Date/Time: 04/08/2018 (918) [id number] Orig Print D/T: S: 04/08/2018 (0922) PAGE 2 Signed Report CBC W/AUTO DIFF 2018-04-08 09:14:00* Test Item Value Reference Range Interpretation Comments WHITE BLOOD CELL (test code = WBC) 6.7 K/mm3 3.5-11.0 N RED BLOOD CELL (test code = RBC) 4.00 M/mm3 4.70-6.10 L HEMOGLOBIN (test code = HGB) 11.4 G/DL 10.4-14.9 N HEMATOCRIT (test code = HCT) 35.1 % 31.5-44.1 N MEAN CELL VOLUME (test code = MCV) 87.8 Fl 84.5-98.6 N MEAN CELL HGB (test code = MCH) 28.5 pg 27.0-34.2 N MEAN CELL HGB CONCETRATION (test code = MCHC) 32.5 G/DL 31.5-34. 0 N RED CELL DISTRIBUTION WIDTH (test code = RDW) 18.5 SD 11.5-14. 5 H PLATELET COUNT (test code = PLT) 299.0 K/mm3 150-450 N MEAN PLATELET VOLUME (test code = MPV) 11.10 fL 7.0-10.5 H NEUTROPHIL % (test code = NT%) 73.7 % 40-76 N LYMPHOCYTE % (test code = LY%) 19.4 % 20.5-51.1 L MONOCYTE % (test code = MO%) 4.5 % 1.7-9.3 N EOSINOPHIL % (test code = EO%) 1.8 % 0.0-6.0 N BASOPHIL % (test code = BA%) 0.6 % 0.0-2.0 N NEUTROPHIL # (test code = NT#) 4.90 K/mm3 1.8-7.6 N LYMPHOCYTE # (test code = LY#) 1.3 K/mm3 0.6-3.2 N MONOCYTE # (test code = MO#) 0.3 K/mm3 0.3-1.1 N EOSINOPHIL # (test code = EO#) 0.1 K/mm3 0.0-0.4 N BASOPHIL # (test code = BA#) 0.0 K/mm3 0.0-0.1 N MANUAL DIFF REQUIRED (test code = MDIFF) NO DIFF/SCN CRITERIA COMPREHENSIVE METABOLIC [id number] 11:09:00* Test Item Value Reference Range Interpretation Comments SODIUM (test code = NA) 140 mmol/L 134-147 N POTASSIUM (test code = K) 4.2 mmol/L 3.4-5.0 N CHLORIDE (test code = CL) 109 mmol/L 100-108 H CARBON DIOXIDE (test code = CO2) 26 mmol/L 21-32 N ANION GAP (test code = GAP) 5.0 GAP calc 4.0-15.0 N GLUCOSE (test code = GLU) 79 MG/DL 70-110 N BLOOD UREA NITROGEN (test code = BUN) 8 MG/DL 7-18 N GLOMERULAR FILTRATION RATE (test code = GFR) >=60 max estimate estG FR >60 CREATININE (test code = CREAT) 0.6 MG/DL 0.6-1.0 N TOTAL PROTEIN (test code = PROT) 7.4 G/DL 6.4-8.2 N ALBUMIN (test code = ALB) 3.6 G/DL 3.4-5.0 N GLOBULIN (test code = GLOB) 3.8 GM/dL ALBUMIN/GLOBULIN RATIO (test code = A/G) 1.0 RATIO 1.2-2.2 L CALCIUM (test code = CA) 8.5 MG/DL 8.5-10.1 N BILIRUBIN TOTAL (test code = BILT) 0.30 MG/DL 0.2-1.2 N SGOT/AST (test code = AST) 23 Unit/L 15-37 N SGPT/ALT (test code = ALT) 18 Unit/L 12-78 N ALKALINE PHOSPHATASE TOTAL (test code = ALKP) 77 Unit/L 45-117 N [id number] 11:09:00* Test Item Value Reference Range Interpretation Comments LIPASE (test code = LIP) 84 Unit/L 114-286 L URINALYSIS [id number] 11:00:00* Test Item Value Reference Range Interpretation Comments UA COLOR (test code = COLU) YELLOW discript YEL/STRAW UA APPEARANCE (test code = APPU) CLEAR discript CLEAR UA GLUCOSE DIPSTICK (test code = DGLUU) NEGATIVE mg/dL NEG UA BILIRUBIN DIPSTICK (test code = BILU) NEGATIVE mg/dL NEG UA KETONE DIPSTICK (test code = KETU) NEGATIVE mg/dL NEG UA SPECIFIC GRAVITY (test code = SGU) 1.010 SG 1.005-1.030 UA BLOOD DIPSTICK (test code = ZABRINA) NEGATIVE mg/DL NEG UA PH DIPSTICK (test code = ROC) 7.0 pH UNITS 5.0-7.0 UA PROTEIN DIPSTICK (test code = PROU) NEGATIVE mg/dL NEG UA UROBILINIOGEN DIPSTICK (test code = URO) 0.2 mg/dL <2.0 UA NITRITE DIPSTICK (test code = NURA) NEGATIVE SCREEN NEG UA LEUKOCYTE ESTERASE DIPSTICK (test code = LEUU) NEGATIVE Leuk/mcL NEGATIVE CBC W/AUTO [id number] 10:59:00* Test Item Value Reference Range Interpretation Comments WHITE BLOOD CELL (test code = WBC) 6.3 K/mm3 3.5-11.0 N RED BLOOD CELL (test code = RBC) 3.81 M/mm3 4.70-6.10 L HEMOGLOBIN (test code = HGB) 11.0 G/DL 10.4-14.9 N HEMATOCRIT (test code = HCT) 33.2 % 31.5-44.1 N MEAN CELL VOLUME (test code = MCV) 87.1 Fl 84.5-98.6 N MEAN CELL HGB (test code = MCH) 28.9 pg 27.0-34.2 N MEAN CELL HGB CONCETRATION (test code = MCHC) 33.1 G/DL 31.5-34. 0 N RED CELL DISTRIBUTION WIDTH (test code = RDW) 18.2 SD 11.5-14. 5 H PLATELET COUNT (test code = PLT) 298.0 K/mm3 150-450 N MEAN PLATELET VOLUME (test code = MPV) 11.20 fL 7.0-10.5 H NEUTROPHIL % (test code = NT%) 63.3 % 40-76 N LYMPHOCYTE % (test code = LY%) 30.2 % 20.5-51.1 N MONOCYTE % (test code = MO%) 4.6 % 1.7-9.3 N EOSINOPHIL % (test code = EO%) 1.7 % 0.0-6.0 N BASOPHIL % (test code = BA%) 0.2 % 0.0-2.0 N NEUTROPHIL # (test code = NT#) 3.99 K/mm3 1.8-7.6 N LYMPHOCYTE # (test code = LY#) 1.9 K/mm3 0.6-3.2 N MONOCYTE # (test code = MO#) 0.3 K/mm3 0.3-1.1 N EOSINOPHIL # (test code = EO#) 0.1 K/mm3 0.0-0.4 N BASOPHIL # (test code = BA#) 0.0 K/mm3 0.0-0.1 N MANUAL DIFF REQUIRED (test code = MDIFF) NO DIFF/SCN CRITERIA LACTIC [id number] 02:37:00* Test Item Value Reference Range Interpretation Comments LACTIC ACID (test code = LACT) 0.9 mmol/L 0.4-1.9 N BASIC METABOLIC [id number] 02:06:00* Test Item Value Reference Range Interpretation Comments SODIUM (test code = NA) 136 mmol/L 136-145 POTASSIUM (test code = K) 4.5 mmol/L 3.5-5.1 N CHLORIDE (test code = CL) 104.0 mmol/L 98-107 N CARBON DIOXIDE (test code = CO2) 24.0 mmol/L 21-32 N ANION GAP (test code = GAP) 12.5 10-20 N GLUCOSE (test code = GLU) 87 mg/dL 74-106 N BLOOD UREA NITROGEN (test code = BUN) 10 mg/dL 7-18 N GLOMERULAR FILTRATION RATE (test code = GFR) > 60 mL/min >=60 Estimated GFR by using Modified MDRD formula.Chronic kidney disease is defined as either kidney damageor GFR <60 mL/min/1.73 m2 for >3 months. CREATININE (test code = CREAT) 0.50 mg/dL 0.55-1.02 L Note change in reference range due to change in reagent. BUN/CREATININE RATIO (test code = BUN/CREA) 19.6 10-20 N CALCIUM (test code = CA) 8.7 mg/dL 8.5-10.1 N BASIC METABOLIC [id number] 02:01:00* Test Item Value Reference Range Interpretation Comments SODIUM (test code = NA) 136 mmol/L 136-145 POTASSIUM (test code = K) 4.5 mmol/L 3.5-5.1 N CHLORIDE (test code = CL) 104.0 mmol/L 98-107 N CARBON DIOXIDE (test code = CO2) mmol/L 21-32 ANION GAP (test code = GAP) 10-20 GLUCOSE (test code = GLU) mg/dL 74-106 BLOOD UREA NITROGEN (test code = BUN) mg/dL 7-18 GLOMERULAR FILTRATION RATE (test code = GFR) mL/min >=60 CREATININE (test code = CREAT) mg/dL 0.55-1.02 BUN/CREATININE RATIO (test code = BUN/CREA) 10-20 CALCIUM (test code = CA) mg/dL 8.5-10.1 LACTIC [id number] 23:03:00* Test Item Value Reference Range Interpretation Comments LACTIC ACID (test code = LACT) 2.2 mmol/L 0.4-1.9 Results called to [id number] by VYEOXIN [email or web address] 03/23/18 2303Critical results verified and read back by Nurse? Y DRUGS OF ABUSE SCREEN [id number] 22:00:00* Test Item Value Reference Range Interpretation Comments UA PH DIPSTICK (test code = ROC) 7.0 5.0-8.0 URN COCAINE (test code = COCAURN) NEGATIVE <300 ng/mL URN CANNABINOIDS (test code = CANNABURN) POSITIVE <50 ng/mL A This test provides only a preliminary test [...] (e.g., employment testing, legaltesting). URN AMPHETAMINE (test code = AMPHETURN) NEGATIVE <1000 ng/mL URN BARBITURATE (test code = BARBITURN) NEGATIVE <200 ng/mL URN BENZODIAZEPINE (test code = BENZOURN) POSITIVE <200 ng/mL A This test provides only a preliminary test [...] (e.g., employment testing, legaltesting). URN OPIATES (test code = OPIATURN) NEGATIVE <300 ng/mL URN PHENCYCLIDINE (PCP) (test code = PHENCURN) NEGATIVE <25 ng/ mL URN METHADONE (test code = METHAURN) NEGATIVE <300 ng/mL DRUGS OF ABUSE SCREEN [id number] 21:38:00* Test Item Value Reference Range Interpretation Comments UA PH DIPSTICK (test code = ROC) 5.0-8.0 URN COCAINE (test code = COCAURN) NEGATIVE <300 ng/mL URN CANNABINOIDS (test code = CANNABURN) POSITIVE <50 ng/mL A This test provides only a preliminary test [...] (e.g., employment testing, legaltesting). URN AMPHETAMINE (test code = AMPHETURN) NEGATIVE <1000 ng/mL URN BARBITURATE (test code = BARBITURN) NEGATIVE <200 ng/mL URN BENZODIAZEPINE (test code = BENZOURN) POSITIVE <200 ng/mL A This test provides only a preliminary test [...] (e.g., employment testing, legaltesting). URN OPIATES (test code = OPIATURN) NEGATIVE <300 ng/mL URN PHENCYCLIDINE (PCP) (test code = PHENCURN) NEGATIVE <25 ng/ mL URN METHADONE (test code = METHAURN) NEGATIVE <300 ng/mL BASIC METABOLIC [id number] 21:25:00* Test Item Value Reference Range Interpretation Comments SODIUM (test code = NA) 129 mmol/L 136-145 L POTASSIUM (test code = K) 4.0 mmol/L 3.5-5.1 N CHLORIDE (test code = CL) 104.0 mmol/L 98-107 N CARBON DIOXIDE (test code = CO2) 1.0 mmol/L 21-32 L ANION GAP (test code = GAP) 28.0 10-20 H GLUCOSE (test code = GLU) 146 mg/dL 74-106 H BLOOD UREA NITROGEN (test code = BUN) 4 mg/dL 7-18 L GLOMERULAR FILTRATION RATE (test code = GFR) > 60 mL/min >=60 Estimated GFR by using Modified MDRD formula.Chronic kidney disease is defined as either kidney damageor GFR <60 mL/min/1.73 m2 for >3 months. CREATININE (test code = CREAT) 0.80 mg/dL 0.55-1.02 N Note change in reference range due to change in reagent. BUN/CREATININE RATIO (test code = BUN/CREA) 5.2 10-20 L CALCIUM (test code = CA) 9.6 mg/dL 8.5-10.1 N HEPATIC FUNCTION [id number] 21:25:00* Test Item Value Reference Range Interpretation Comments TOTAL PROTEIN (test code = PROT) 9.1 gram/dL 6.4-8.2 H ALBUMIN (test code = ALB) 3.6 g/dL 3.4-5.0 N GLOBULIN (test code = GLOB) 5.5 gram/dL 2.7-4.2 H ALBUMIN/GLOBULIN RATIO (test code = A/G) 0.7 0.75-1.50 L BILIRUBIN TOTAL (test code = BILT) 0.70 mg/dL 0.0-1.0 N BILIRUBIN DIRECT (test code = BILD) 0.08 mg/dL 0.0-0.20 N SGOT/AST (test code = AST) 20 IUnit/L 15-37 N SGPT/ALT (test code = ALT) 23 IUnit/L 12-78 N ALKALINE PHOSPHATASE TOTAL (test code = ALKP) 115 IUnit/L 45-117 N Note change in reference range due to change in reagent. [id number] 21:25:00* Test Item Value Reference Range Interpretation Comments LIPASE (test code = LIP) 38 U/L 73.0-393.0 L HCG SERUM [id number] 21:25:00* Test Item Value Reference Range Interpretation Comments HCG SERUM QUAL (test code = HCGQL) NEGATIVE NEGATIVE This HCGQL test is NOT applicable for MALE patients.Check with nurse about probable order error.If Tumor Marker Test needed, nurse should order test "HCGTU"(Test #550.72735) BASIC METABOLIC [id number] 21:24:00* Test Item Value Reference Range Interpretation Comments SODIUM (test code = NA) mmol/L 136-145 POTASSIUM (test code = K) mmol/L 3.5-5.1 CHLORIDE (test code = CL) mmol/L 98-107 CARBON DIOXIDE (test code = CO2) mmol/L 21-32 ANION GAP (test code = GAP) 10-20 GLUCOSE (test code = GLU) 146 mg/dL 74-106 H BLOOD UREA NITROGEN (test code = BUN) mg/dL 7-18 GLOMERULAR FILTRATION RATE (test code = GFR) mL/min >=60 CREATININE (test code = CREAT) mg/dL 0.55-1.02 BUN/CREATININE RATIO (test code = BUN/CREA) 10-20 CALCIUM (test code = CA) mg/dL 8.5-10.1 HEPATIC FUNCTION [id number] 21:24:00* Test Item Value Reference Range Interpretation Comments TOTAL PROTEIN (test code = PROT) gram/dL 6.4-8.2 ALBUMIN (test code = ALB) g/dL 3.4-5.0 GLOBULIN (test code = GLOB) gram/dL 2.7-4.2 ALBUMIN/GLOBULIN RATIO (test code = A/G) 0.75-1.50 BILIRUBIN TOTAL (test code = BILT) mg/dL 0.0-1.0 BILIRUBIN DIRECT (test code = BILD) mg/dL 0.0-0.20 SGOT/AST (test code = AST) IUnit/L 15-37 SGPT/ALT (test code = ALT) IUnit/L 12-78 ALKALINE PHOSPHATASE TOTAL (test code = ALKP) IUnit/L 45-117 [id number] 21:24:00* Test Item Value Reference Range Interpretation Comments LIPASE (test code = LIP) U/L 73.0-393.0 HCG SERUM [id number] 21:24:00* Test Item Value Reference Range Interpretation Comments HCG SERUM QUAL (test code = HCGQL) NEGATIVE NEGATIVE This HCGQL test is NOT applicable for MALE patients.Check with nurse about probable order error.If Tumor Marker Test needed, nurse should order test "HCGTU"(Test #550.98012) URINALYSIS [id number] 21:16:00* Test Item Value Reference Range Interpretation Comments UA COLOR (test code = COLU) YELLOW YELLOW UA APPEARANCE (test code = APPU) Cloudy CLEAR A UA GLUCOSE DIPSTICK (test code = DGLUU) 150 (1+) mg/dL NEGATIVE A UA BILIRUBIN DIPSTICK (test code = BILU) NEGATIVE mg/dL NEGATIVE UA KETONE DIPSTICK (test code = KETU) 5 (Trace) mg/dL NEGATIVE A UA SPECIFIC GRAVITY (test code = SGU) 1.025 1.001-1.035 UA BLOOD DIPSTICK (test code = ZABRINA) Negative NEGATIVE UA PH DIPSTICK (test code = ROC) 7.0 5.0-8.0 UA PROTEIN DIPSTICK (test code = PROU) 100 (2+) mg/dL NEGATIVE A UA UROBILINIOGEN DIPSTICK (test code = URO) NEGATIVE mg/dL NEGATIVE UA NITRITE DIPSTICK (test code = NURA) NEGATIVE NEGATIVE UA LEUKOCYTE ESTERASE W REFLEX (test code = LEUUR) NEGATIVE NEG ATIVE UA WBC (test code = WBCU) 6-10 #/HPF 0-5 A UA RBC (test code = RBCU) 6-10 #/HPF 0-5 A UA EPITHELIAL CELLS (test code = EPIU) MANY per HPF FEW UA BACTERIA (test code = BACU) FEW #/HPF NONE A UA HYALINE CAST (test code = HYALU) 3-5 #/LPF 0-5 UA MUCUS (test code = MUCU) MANY #/LPF FEW A UA YEAST (test code = YEASTU) FEW #/HPF NONE A Urine Source? Clean CatchBASIC METABOLIC [id number] 21:14:00* Test Item Value Reference Range Interpretation Comments SODIUM (test code = NA) mmol/L 136-145 POTASSIUM (test code = K) mmol/L 3.5-5.1 CHLORIDE (test code = CL) mmol/L 98-107 CARBON DIOXIDE (test code = CO2) mmol/L 21-32 ANION GAP (test code = GAP) 10-20 GLUCOSE (test code = GLU) mg/dL 74-106 BLOOD UREA NITROGEN (test code = BUN) mg/dL 7-18 GLOMERULAR FILTRATION RATE (test code = GFR) mL/min >=60 CREATININE (test code = CREAT) mg/dL 0.55-1.02 BUN/CREATININE RATIO (test code = BUN/CREA) 10-20 CALCIUM (test code = CA) mg/dL 8.5-10.1 HEPATIC FUNCTION [id number] 21:14:00* Test Item Value Reference Range Interpretation Comments TOTAL PROTEIN (test code = PROT) gram/dL 6.4-8.2 ALBUMIN (test code = ALB) g/dL 3.4-5.0 GLOBULIN (test code = GLOB) gram/dL 2.7-4.2 ALBUMIN/GLOBULIN RATIO (test code = A/G) 0.75-1.50 BILIRUBIN TOTAL (test code = BILT) mg/dL 0.0-1.0 BILIRUBIN DIRECT (test code = BILD) mg/dL 0.0-0.20 SGOT/AST (test code = AST) IUnit/L 15-37 SGPT/ALT (test code = ALT) IUnit/L 12-78 ALKALINE PHOSPHATASE TOTAL (test code = ALKP) IUnit/L 45-117 [id number] 21:14:00* Test Item Value Reference Range Interpretation Comments LIPASE (test code = LIP) U/L 73.0-393.0 HCG SERUM [id number] 21:14:00* Test Item Value Reference Range Interpretation Comments HCG SERUM QUAL (test code = HCGQL) NEGATIVE NEGATIVE This HCGQL test is NOT applicable for MALE patients.Check with nurse about probable order error.If Tumor Marker Test needed, nurse should order test "HCGTU"(Test #550.73921) CBC W/O [id number] 20:52:00* Test Item Value Reference Range Interpretation Comments WHITE BLOOD CELL (test code = WBC) 14.2 K/mm3 4.5-12.5 H RED BLOOD CELL (test code = RBC) 4.72 mill/mm3 3.7-5.2 N HEMOGLOBIN (test code = HGB) 12.7 gram/dL 11.5-15.5 N HEMATOCRIT (test code = HCT) 43.2 % 36.0-46.0 N MEAN CELL VOLUME (test code = MCV) 91.5 fL 80-98 N MEAN CELL HGB (test code = MCH) 26.9 picogram 27.0-33.0 L MEAN CELL HGB CONCETRATION (test code = MCHC) 29.4 gram/dL 33.0-36. 0 L RED CELL DISTRIBUTION WIDTH (test code = RDW) 17.3 % 11.6-16. 2 H PLATELET COUNT (test code = PLT) 317 K/mm3 150-450 N MEAN PLATELET VOLUME (test code = MPV) 11.3 fL 6.7-11.0 H - CT ABD PELVIS [id number] 11:04:00 Name: HOLLEY GAYLE [facility] : 1990 Age/S: 27 / F [address] [place] [address] Unit #: [id number] Loc: [place] [address] Phys: Luis Fried Acct: [id number] Dis Date: Status: UNK PHONE #: [phone] Exam Date: 02/09/2018 1044 FAX #: [phone] Reason: RLQ abdominal pain with vomiting and diarrhea EXAMS: CPT CODE: [id number] CT ABD PELVIS W/CONT 06057 CT SCAN OF THE ABDOMEN AND PELVIS WITHOUT CONTRAST: HISTORY: Acute right lower quadrant abdominal pain with vomiting and diarrhea. COMPARISON EXAM(S): None available TECHNIQUE: Axial images were obtained of the abdomen and pelvis from the domes of the diaphragm to the symphysis pubis without contrast material. Coronal and sagittal reconstructions were generated. DOSE: CT imaging performed at this location utilizes radiation dose optimization technique which includes one or more of the followin) Automated exposure control; 2) Adjustment of the mA and/or kV according to patient's size; 3) Use of iterative reconstruction techniques. DLP (mGy-cm): 647 FINDINGS: The lung bases and pleural spaces are clear. The solid organs are not well evaluated without IV contrast. The liver, spleen, adrenal glands, pancreas and kidneys have a normal appearance. The gallbladder is absent The bowel pattern is within normal limits without dominant inflammatory changes identified in either lower quadrant. The pelvic structures appear grossly normal. There is no evidence of free fluid or free air. The appendix is well-seen and normal. SKELETAL: Bone windows show no suspicious blastic or lytic lesions . No acute bony abnormalities. IMPRESSION: 1. Ne gative noncontrast CT scan of the abdomen and pelvis. 2. Normal appen conrad. 3. Prior cholecystectomy. SL:01 PAGE 1 Signed Report (CONTINUED) Name: HOLLEY GAYLE [facility] : 1990 Age/S: 27 / F [address] [place], [place] [address]vd Unit #: [id number] Loc: [place] [address] Phys: Luis Fried Acct: [id number] Dis Date: tus: UNK PHONE #: [phone] Exam Date : 02/09/2018 1044 FAX #: [phone] Reason: RLQ abdo pavan pain with vomiting and diarrhea EXAMS: CPT CODE: [id number] CT ABD PELVIS W/CONT 97225 <Continued> at 1104 Reported and signed by: Jason Simmons M.D. CC: Luis JENSEN Technologist:RT Dorothea(R)(CT) CTDI: DLP: Trnscb Date/Time: 02/09/2018 (1104) Kavon Orig Print D/T: S: 02/09/2018 (1107) PAGE 2 Signed Report URINALYSIS W/ REFLEX URINE CULTURE 2017-10-27 13:37:00* Test Item Value Reference Range Interpretation Comments COLOR (BEAKER) (test code = 470) Yellow CLARITY (BEAKER) (test code = 469) Clear SPECIFIC GRAVITY UA (BEAKER) (test code = 468) 1.020 1.001-1 .035 PH UA (BEAKER) (test code = 467) 7.0 5.0-8.0 PROTEIN UA (BEAKER) (test code = 464) 10 mg/dL Negative A GLUCOSE UA (BEAKER) (test code = 365) Negative Negative KETONES UA (BEAKER) (test code = 371) Negative Negative BILIRUBIN UA (BEAKER) (test code = 462) Negative Negative BLOOD UA (BEAKER) (test code = 461) Negative Negative NITRITE UA (BEAKER) (test code = 465) Negative Negative LEUKOCYTE ESTERASE UA (BEAKER) (test code = 466) Negative Negat wiliam UROBILINOGEN UA (BEAKER) (test code = 463) 0.2 mg/dL 0.2-1.0 RBC UA (BEAKER) (test code = 519) 1 /HPF WBC UA (BEAKER) (test code = 520) 1 /HPF BACTERIA (BEAKER) (test code = 517) Occasional MUCUS (BEAKER) (test code = 1574) Rare SQUAMOUS EPITHELIAL (BEAKER) (test code = 516) 7 /HPF SOURCE(BEAKER) (test code = 2795) SCREEN, [id number] 13:20:00* Test Item Value Reference Range Interpretation Comments TEST URINE (BEAKER) (test code = 583) Negative [id number] 12:58:00* Test Item Value Reference Range Interpretation Comments LIPASE (BEAKER) (test code = 749) 7 U/L 8-78 L BASIC METABOLIC [id number] 12:58:00* Test Item Value Reference Range Interpretation Comments SODIUM (BEAKER) (test code = 381) 133 meq/L 136-145 L POTASSIUM (BEAKER) (test code = 379) 4.2 meq/L 3.5-5.1 CHLORIDE (BEAKER) (test code = 382) 103 meq/L 98-107 CO2 (BEAKER) (test code = 355) 21 meq/L 22-29 L BLOOD UREA NITROGEN (BEAKER) (test code = 354) 10 mg/dL 7-21 CREATININE (BEAKER) (test code = 358) 0.66 mg/dL 0.57-1.25 GLUCOSE RANDOM (BEAKER) (test code = 652) 85 mg/dL 70-105 CALCIUM (BEAKER) (test code = 697) 9.6 mg/dL 8.4-10.2 EGFR (BEAKER) (test code = 1092) 106 mL/min/1.73 sq m ESTIMATED GFR IS NOT ACCURATE CREATININE CLEARANCE IN PREDICTING GLOMERULAR FILTRATION RATE. ESTIMATED GFR IS NOT APPLICABLE FOR DIALYSIS PATIENTS. HEPATIC FUNCTION [id number] 12:58:00* Test Item Value Reference Range Interpretation Comments TOTAL PROTEIN (BEAKER) (test code = 770) 8.1 gm/dL 6.0-8.3 ALBUMIN (BEAKER) (test code = 1145) 4.6 g/dL 3.5-5.0 BILIRUBIN TOTAL (BEAKER) (test code = 377) 0.5 mg/dL 0.2-1.2 BILIRUBIN DIRECT (BEAKER) (test code = 706) 0.2 mg/dL 0.1-0.5 ALKALINE PHOSPHATASE (BEAKER) (test code = 346) 102 U/L 40-150 AST (SGOT) (BEAKER) (test code = 353) 18 U/L 5-34 ALT (SGPT) (BEAKER) (test code = 347) 40 U/L 6-55 CBC W/PLT COUNT & AUTO [id number] 12:40:00* Test Item Value Reference Range Interpretation Comments WHITE BLOOD CELL COUNT (BEAKER) (test code = 775) 9.7 K/ L 3.5- 10.5 RED BLOOD CELL COUNT (BEAKER) (test code = 761) 4.40 M/ L 3.93-5 .22 HEMOGLOBIN (BEAKER) (test code = 410) 12.4 GM/DL 11.2-15.7 HEMATOCRIT (BEAKER) (test code = 411) 39.8 % 34.1-44.9 MEAN CORPUSCULAR VOLUME (BEAKER) (test code = 753) 90.5 fL 79. 4-94.8 MEAN CORPUSCULAR HEMOGLOBIN (BEAKER) (test code = 751) 28.2 pg 25.6-32.2 MEAN CORPUSCULAR HEMOGLOBIN CONC (BEAKER) (test code = 752) 31.2 GM/DL 32.2-35.5 L RED CELL DISTRIBUTION WIDTH (BEAKER) (test code = 412) 16.6 % 11.7-14.4 H PLATELET COUNT (BEAKER) (test code = 756) 340 K/CU MM 150-450 MEAN PLATELET VOLUME (BEAKER) (test code = 754) 11.4 fL 9.4-12 .3 NUCLEATED RED BLOOD CELLS (BEAKER) (test code = 413) 0 /100 WBC 0 -0 NEUTROPHILS RELATIVE PERCENT (BEAKER) (test code = 429) 74 % LYMPHOCYTES RELATIVE PERCENT (BEAKER) (test code = 430) 22 % MONOCYTES RELATIVE PERCENT (BEAKER) (test code = 431) 3 % EOSINOPHILS RELATIVE PERCENT (BEAKER) (test code = 432) 1 % BASOPHILS RELATIVE PERCENT (BEAKER) (test code = 437) 0 % NEUTROPHILS ABSOLUTE COUNT (BEAKER) (test code = 670) 7.15 K/ L 1.56-6.13 H LYMPHOCYTES ABSOLUTE COUNT (BEAKER) (test code = 414) 2.12 K/ L 1.18-3.74 MONOCYTES ABSOLUTE COUNT (BEAKER) (test code = 415) 0.27 K/ L 0. 24-0.36 EOSINOPHILS ABSOLUTE COUNT (BEAKER) (test code = 416) 0.05 K/ L 0.04-0.36 BASOPHILS ABSOLUTE COUNT (BEAKER) (test code = 417) 0.04 K/ L 0. 01-0.08 IMMATURE GRANULOCYTES-RELATIVE PERCENT (BEAKER) (test code = 2801) 0 % 0-1 CT, [id number] 13:15:00Reason for exam:->ABDOMINAL PAINIs the patient ?->NoWhat [...] s. Status post cholecystectomy and hysterectomy. Signed: Marli Quinn MDReport Verif ied Date/Time: 10/20/2017 13:15:31 Reading Location: [facility] [id number] Ortho Consult Reading Room 01: 15 PM [id number] 10:40:00* Test Item Value Reference Range Interpretation Comments LIPASE (BEAKER) (test code = 749) 8 U/L 8-78 BASIC METABOLIC [id number] 10:40:00* Test Item Value Reference Range Interpretation Comments SODIUM (BEAKER) (test code = 381) 133 meq/L 136-145 L POTASSIUM (BEAKER) (test code = 379) 4.2 meq/L 3.5-5.1 CHLORIDE (BEAKER) (test code = 382) 105 meq/L 98-107 CO2 (BEAKER) (test code = 355) 16 meq/L 22-29 L BLOOD UREA NITROGEN (BEAKER) (test code = 354) 10 mg/dL 7-21 CREATININE (BEAKER) (test code = 358) 0.64 mg/dL 0.57-1.25 GLUCOSE RANDOM (BEAKER) (test code = 652) 89 mg/dL 70-105 CALCIUM (BEAKER) (test code = 697) 10.0 mg/dL 8.4-10.2 EGFR (BEAKER) (test code = 1092) 110 mL/min/1.73 sq m ESTIMATED GFR IS NOT ACCURATE CREATININE CLEARANCE IN PREDICTING GLOMERULAR FILTRATION RATE. ESTIMATED GFR IS NOT APPLICABLE FOR DIALYSIS PATIENTS. HEPATIC FUNCTION [id number] 10:40:00* Test Item Value Reference Range Interpretation Comments TOTAL PROTEIN (BEAKER) (test code = 770) 8.3 gm/dL 6.0-8.3 ALBUMIN (BEAKER) (test code = 1145) 4.4 g/dL 3.5-5.0 BILIRUBIN TOTAL (BEAKER) (test code = 377) 0.6 mg/dL 0.2-1.2 BILIRUBIN DIRECT (BEAKER) (test code = 706) 0.3 mg/dL 0.1-0.5 ALKALINE PHOSPHATASE (BEAKER) (test code = 346) 107 U/L 40-150 AST (SGOT) (BEAKER) (test code = 353) 29 U/L 5-34 ALT (SGPT) (BEAKER) (test code = 347) 42 U/L 6-55 URINALYSIS W/ [id number] 10:38:00* Test Item Value Reference Range Interpretation Comments COLOR (BEAKER) (test code = 470) Yellow CLARITY (BEAKER) (test code = 469) Clear SPECIFIC GRAVITY UA (BEAKER) (test code = 468) 1.021 1.001-1 .035 PH UA (BEAKER) (test code = 467) 6.0 5.0-8.0 PROTEIN UA (BEAKER) (test code = 464) 10 mg/dL Negative A GLUCOSE UA (BEAKER) (test code = 365) Negative Negative KETONES UA (BEAKER) (test code = 371) Negative Negative BILIRUBIN UA (BEAKER) (test code = 462) Negative Negative BLOOD UA (BEAKER) (test code = 461) Negative Negative NITRITE UA (BEAKER) (test code = 465) Negative Negative LEUKOCYTE ESTERASE UA (BEAKER) (test code = 466) Negative Negat wiliam UROBILINOGEN UA (BEAKER) (test code = 463) 0.2 mg/dL 0.2-1.0 RBC UA (BEAKER) (test code = 519) 1 /HPF WBC UA (BEAKER) (test code = 520) < /HPF MUCUS (BEAKER) (test code = 1574) Few SQUAMOUS EPITHELIAL (BEAKER) (test code = 516) 3 /HPF SOURCE(BEAKER) (test code = 2792) CBC W/PLT COUNT & AUTO [id number] 10:33:00* Test Item Value Reference Range Interpretation Comments WHITE BLOOD CELL COUNT (BEAKER) (test code = 775) 8.7 K/ L 3.5- 10.5 RED BLOOD CELL COUNT (BEAKER) (test code = 761) 4.13 M/ L 3.93-5 .22 HEMOGLOBIN (BEAKER) (test code = 410) 12.0 GM/DL 11.2-15.7 HEMATOCRIT (BEAKER) (test code = 411) 36.9 % 34.1-44.9 MEAN CORPUSCULAR VOLUME (BEAKER) (test code = 753) 89.3 fL 79. 4-94.8 MEAN CORPUSCULAR HEMOGLOBIN (BEAKER) (test code = 751) 29.1 pg 25.6-32.2 MEAN CORPUSCULAR HEMOGLOBIN CONC (BEAKER) (test code = 752) 32.5 GM/DL 32.2-35.5 RED CELL DISTRIBUTION WIDTH (BEAKER) (test code = 412) 16.6 % 11.7-14.4 H PLATELET COUNT (BEAKER) (test code = 756) 383 K/CU MM 150-450 MEAN PLATELET VOLUME (BEAKER) (test code = 754) 10.4 fL 9.4-12 .3 NUCLEATED RED BLOOD CELLS (BEAKER) (test code = 413) 0 /100 WBC 0 -0 NEUTROPHILS RELATIVE PERCENT (BEAKER) (test code = 429) 64 % LYMPHOCYTES RELATIVE PERCENT (BEAKER) (test code = 430) 30 % MONOCYTES RELATIVE PERCENT (BEAKER) (test code = 431) 4 % EOSINOPHILS RELATIVE PERCENT (BEAKER) (test code = 432) 1 % BASOPHILS RELATIVE PERCENT (BEAKER) (test code = 437) 1 % NEUTROPHILS ABSOLUTE COUNT (BEAKER) (test code = 670) 5.54 K/ L 1.56-6.13 LYMPHOCYTES ABSOLUTE COUNT (BEAKER) (test code = 414) 2.59 K/ L 1.18-3.74 MONOCYTES ABSOLUTE COUNT (BEAKER) (test code = 415) 0.37 K/ L 0. 24-0.36 H EOSINOPHILS ABSOLUTE COUNT (BEAKER) (test code = 416) 0.12 K/ L 0.04-0.36 BASOPHILS ABSOLUTE COUNT (BEAKER) (test code = 417) 0.05 K/ L 0. 01-0.08 IMMATURE GRANULOCYTES-RELATIVE PERCENT (BEAKER) (test code = 2801) 0 % 0-1 SCREEN, [id number] 10:28:00* Test Item Value Reference Range Interpretation Comments TEST URINE (BEAKER) (test code = 583) Negative Sodium [id number] 18:19:00* Test Item Value Reference Range Interpretation Comments Sodium Level (test code = 2951-2) 138 136-145 [facility]Potassium [id number] 18:19:00* Test Item Value Reference Range Interpretation Comments Potassium Level (test code = 2823-3) 3.4 3.5-5.1 L [facility] NorthwestChloride [id number] 18:19:00* Test Item Value Reference Range Interpretation Comments Chloride Level (test code = 2075-0) 103 98-107 [facility] NorthwestCarbon Dioxide [id number] 18:19:00* Test Item Value Reference Range Interpretation Comments Carbon Dioxide Level (test code = 2028-9) 25 22-29 [facility] NorthwestAnion [id number] 18:19:00* Test Item Value Reference Range Interpretation Comments Anion Gap (test code = 90503-4) 13.4 8-16 [facility] NorthwestBlood Urea [id number] 18:19:00* Test Item Value Reference Range Interpretation Comments Blood Urea Nitrogen (test code = 3094-0) 6 7-26 L [facility] NorthwestCreatinine2018-04-11 18:19:00* Test Item Value Reference Range Interpretation Comments Creatinine (test code = 2160-0) 0.74 0.57-1.11 [facility] NorthwestBUN/Creatinine [id number] 18:19:00* Test Item Value Reference Range Interpretation Comments BUN/Creatinine Ratio (test code = 3097-3) 8 6-25 [facility] NorthwestEstimat Glomerular Filtration Rate 2017-06-09 18:19:00* Test Item Value Reference Range Interpretation Comments Estimat Glomerular Filtration Rate (test code = 82561-3) 60- >60 Ranges were taken from the National Kidney Disease Education Program and the [facility] [employer] literature.Reference ranges:60 or greater: Qxcbik24-97 ( for 3 consecutive months): Chronic kidney disease 15 or less: Kidney failureHCA Houston Healthcare NorthwestGlucose [id number] 18:19:00* Test Item Value Reference Range Interpretation Comments Glucose Level (test code = GMO7199) 89 74-118 [facility] NorthwestCalcium [id number] 18:19:00* Test Item Value Reference Range Interpretation Comments Calcium Level (test code = 10922-2) 10.0 8.4-10.2 [facility] NorthwestTotal [id number] 18:19:00* Test Item Value Reference Range Interpretation Comments Total Bilirubin (test code = 1975-2) 0.4 0.2-1.2 [facility] NorthwestAspartate Amino Transf (AST/SGOT) 2017-06-09 18:19:00* Test Item Value Reference Range Interpretation Comments Aspartate Amino Transf (AST/SGOT) (test code = Aspartate Amino Transf (AST/SGOT)) 19 5-34 [facility] NorthwestAlanine Aminotransferase (ALT/SGPT) 2017-06-09 18:19:00* Test Item Value Reference Range Interpretation Comments Alanine Aminotransferase (ALT/SGPT) (test code = 1742-6) 29 0-55 [facility] NorthwestTotal [id number] 18:19:00* Test Item Value Reference Range Interpretation Comments Total Protein (test code = 2885-2) 8.2 6.5-8.1 H [facility] NorthwestAlbumin2018-04-11 18:19:00* Test Item Value Reference Range Interpretation Comments Albumin (test code = 1751-7) 4.1 3.5-5.0 [facility] NorthwestGlobulin2018-04-11 18:19:00* Test Item Value Reference Range Interpretation Comments Globulin (test code = 92220-6) 4.1 2.3-3.5 H [facility] NorthwestAlbumin/Globulin [id number] 18:19:00 * Test Item Value Reference Range Interpretation Comments Albumin/Globulin Ratio (test code = 1759-0) 1.0 0.8-2.0 [facility] NorthwestAlkaline Ajjwwfvdaxe7860-34-48 18:19:00* Test Item Value Reference Range Interpretation Comments Alkaline Phosphatase (test code = 6768-6) 117 40-150 [facility] NorthwestLipase2018-04-11 18:19:00* Test Item Value Reference Range Interpretation Comments Lipase (test code = 3040-3) 8 8-78 [facility] NorthwestWhite Blood [id number] 18:04:00* Test Item Value Reference Range Interpretation Comments White Blood Count (test code = 6690-2) 8.10 4.8-10.8 [facility] NorthwestRed Blood [id number] 18:04:00* Test Item Value Reference Range Interpretation Comments Red Blood Count (test code = 789-8) 4.27 3.6-5.1 [facility] NorthwestHemoglobin2018-04-11 18:04:00* Test Item Value Reference Range Interpretation Comments Hemoglobin (test code = 52923-2) 12.6 12.0-16.0 [facility] NorthwestHematocrit2018-04-11 18:04:00* Test Item Value Reference Range Interpretation Comments Hematocrit (test code = 4544-3) 37.6 34.2-44.1 [facility] NorthwestMean Corpuscular Hqopxo9906-30-76 18:04:00* Test Item Value Reference Range Interpretation Comments Mean Corpuscular Volume (test code = 787-2) 88.1 81-99 [facility] NorthwestMean Corpuscular Pdurvsvgty8602-99-09 18:04:00* Test Item Value Reference Range Interpretation Comments Mean Corpuscular Hemoglobin (test code = 785-6) 29.5 28-32 [facility] NorthwestMean Corpuscular Hemoglobin Concent 2017-06-09 18:04:00* Test Item Value Reference Range Interpretation Comments Mean Corpuscular Hemoglobin Concent (test code = 786-4) 33.5 31-35 [facility] NorthwestRed Cell Distribution [id number] 18:04:00* Test Item Value Reference Range Interpretation Comments Red Cell Distribution Width (test code = 71268-2) 17.4 11.7 -14.4 H [facility] NorthwestPlatelet [id number] 18:04:00* Test Item Value Reference Range Interpretation Comments Platelet Count (test code = 777-3) 392 140-360 H [facility] NorthwestNeutrophils (%) (Auto)2017-06-09 18:04:00 * Test Item Value Reference Range Interpretation Comments Neutrophils (%) (Auto) (test code = 11487-0) 68.0 38.7-80.0 [facility] NorthwestLymphocytes (%) (Auto)2017-06-09 18:04:00 * Test Item Value Reference Range Interpretation Comments Lymphocytes (%) (Auto) (test code = 736-9) 24.3 18.0-39.1 [facility] NorthwestMonocytes (%) (Auto)2017-06-09 18:04:00* Test Item Value Reference Range Interpretation Comments Monocytes (%) (Auto) (test code = 5905-5) 5.2 4.4-11.3 [facility] NorthwestEosinophils (%) (Auto)2017-06-09 18:04:00 * Test Item Value Reference Range Interpretation Comments Eosinophils (%) (Auto) (test code = 713-8) 1.9 0.0-6.0 [facility] NorthwestBasophils (%) (Auto)2017-06-09 18:04:00* Test Item Value Reference Range Interpretation Comments Basophils (%) (Auto) (test code = 706-2) 0.2 0.0-1.0 [facility] NorthwestIM GRANULOCYTES %2017-06-09 18:04:00* Test Item Value Reference Range Interpretation Comments IM GRANULOCYTES % (test code = IM GRANULOCYTES %) 0.4 0.0- 1.0 [facility] NorthwestNeutrophils # (Auto)2017-06-09 18:04:00* Test Item Value Reference Range Interpretation Comments Neutrophils # (Auto) (test code = 751-8) 5.5 2.1-6.9 [facility] NorthwestLymphocytes # (Auto)2017-06-09 18:04:00* Test Item Value Reference Range Interpretation Comments Lymphocytes # (Auto) (test code = 48655-3) 2.0 1.0-3.2 [facility] NorthwestMonocytes # (Auto)2017-06-09 18:04:00* Test Item Value Reference Range Interpretation Comments Monocytes # (Auto) (test code = 742-7) 0.4 0.2-0.8 [facility] NorthwestEosinophils # (Auto)2017-06-09 18:04:00* Test Item Value Reference Range Interpretation Comments Eosinophils # (Auto) (test code = 711-2) 0.2 0.0-0.4 [facility] NorthwestBasophils # (Auto)2017-06-09 18:04:00* Test Item Value Reference Range Interpretation Comments Basophils # (Auto) (test code = 704-7) 0.0 0.0-0.1 [facility] NorthwestAbsolute Immature Granulocyte (auto 2017-06-09 18:04:00* Test Item Value Reference Range Interpretation Comments Absolute Immature Granulocyte (auto (bella t code = Absolute Immature Granulocyte (auto) 0.03 0-0.1 [facility] NorthwestUrine [id number] 17:05:00* Test Item Value Reference Range Interpretation Comments Urine WBC (test code = 5821-4) 6-10 0-5 H [facility] NorthwestUrine [id number] 17:05:00* Test Item Value Reference Range Interpretation Comments Urine RBC (test code = 49301-8) NONE 0-5 [facility] NorthwestUrine Ixzrnagi7631-05-29 17:05:00* Test Item Value Reference Range Interpretation Comments Urine Bacteria (test code = 05523-8) MODERATE NONE H [facility] NorthwestUrine Epithelial [id number] 17:05:00 * Test Item Value Reference Range Interpretation Comments Urine Epithelial Cells (test code = 67837-5) RARE NONE [facility] NorthwestUrine Opiates Iztmte0410-44-85 16:56:00* Test Item Value Reference Range Interpretation Comments Urine Opiates Screen (test code = 61332-9) NEGATIVE NEGATIVE [facility] NorthwestUrine Barbiturates Ujligl7688-59-20 16:56:00* Test Item Value Reference Range Interpretation Comments Urine Barbiturates Screen (test code = 800852293) NEGATIVE NEGA TIVE [facility] NorthwestUrine Phencyclidine Sonbit6099-89-81 16:56:00* Test Item Value Reference Range Interpretation Comments Urine Phencyclidine Screen (test code = 59412-0) NEGATIVE NEGAT WILIAM [facility] NorthwestUrine Amphetamines Fmfvpp3344-95-80 16:56:00* Test Item Value Reference Range Interpretation Comments Urine Amphetamines Screen (test code = 58105-3) NEGATIVE NEGATI VE [facility] NorthwestUrine Methamphetamines Zqufsn0949-81-22 16:56:00* Test Item Value Reference Range Interpretation Comments Urine Methamphetamines Screen (test code = Urine Metha mphetamines Screen) NEGATIVE NEGATIVE [facility] NorthwestUrine Benzodiazepines Swyurq1014-18-42 16:56:00* Test Item Value Reference Range Interpretation Comments Urine Benzodiazepines Screen (test code = 05049-9) POSITIVE NEG ATIVE H This test provides only a screen. Positive results should be repeated by a confi rmatory test.[facility] NorthwestUrine Cocaine Screen 2017-06-09 16:56:00* Test Item Value Reference Range Interpretation Comments Urine Cocaine Screen (test code = 3398-5) NEGATIVE NEGATIVE [facility] NorthwestUrine Cannabinoids Mxwksx9917-95-53 16:56:00* Test Item Value Reference Range Interpretation Comments Urine Cannabinoids Screen (test code = 62136-2) POSITIVE NEGATI VE H This test provides only a screen. Positive results should be repeated by a confi rmatory test.[facility] NorthwestUrine Methadone Screen 2017-06-09 16:56:00* Test Item Value Reference Range Interpretation Comments Urine Methadone Screen (test code = 70786-4) NEGATIVE NEGATIVE THESE RESULTS ARE FOR MEDICAL TREATMENT ONLYTHIS REPORT CONTAINS UNCONFIR MED SCREENING RESULTS*POSITIVE RESULTS WILL BE CONFIRMED BY REFERENCE LAB UPON R EQUEST CUT-OFFDRUG CLASS CONCENTRATION ng/mLAmphetamines 1000Methamphetamines 1000Cocaine Metabolite 300Opiate 300Phencyc lidine 25Cannabinoid 50Barbiturates 300Benzodiazepine 300Methadone 300[facility] NorthwestUrine Ijaap1945-34-11 16:55:00* Test Item Value Reference Range Interpretation Comments Urine Color (test code = 5778-6) YELLOW YELLOW [facility] NorthwestUrine Ctvrdqo7328-65-14 16:55:00* Test Item Value Reference Range Interpretation Comments Urine Clarity (test code = 10140-9) SL CLOUDY CLEAR [facility] Specific Reeysbq3600-52-38 16:55:00 * Test Item Value Reference Range Interpretation Comments Urine Specific [place] (test code = 5811-5) 1.020 1.010-1.02 5 [facility] NorthwestUrine [id number] 16:55:00* Test Item Value Reference Range Interpretation Comments Urine pH (test code = 04128-4) 8 5-7 H [facility] Leukocyte Ovhhafaq8925-17-58 16:55:00* Test Item Value Reference Range Interpretation Comments Urine Leukocyte Esterase (test code = 5799-2) 1+ NEGATIVE H [facility] Ttkrunl7573-26-30 16:55:00* Test Item Value Reference Range Interpretation Comments Urine Nitrite (test code = 59087-4) NEGATIVE NEGATIVE [facility] Gfmlfwd3493-43-64 16:55:00* Test Item Value Reference Range Interpretation Comments Urine Protein (test code = 5804-0) TRACE NEGATIVE H [facility] Glucose (UA)2017-06-09 16:55:00* Test Item Value Reference Range Interpretation Comments Urine Glucose (UA) (test code = 2349-9) NEGATIVE NEGATIVE [facility] NorthwestUrine Zxuppyp4907-00-99 16:55:00* Test Item Value Reference Range Interpretation Comments Urine Ketones (test code = 62713-2) NEGATIVE NEGATIVE [facility] Mwnqygrorzin1033-59-44 16:55:00* Test Item Value Reference Range Interpretation Comments Urine Urobilinogen (test code = 47021-1) 0.2 0.2-1 [facility] Dpzjrebeu3327-93-05 16:55:00* Test Item Value Reference Range Interpretation Comments Urine Bilirubin (test code = 1978-6) NEGATIVE NEGATIVE [facility] NorthwestUrine Ejexs6537-77-16 16:55:00* Test Item Value Reference Range Interpretation Comments Urine Blood (test code = 56073-8) TRACE NEGATIVE H [facility] NorthwestC-Reactive Xbymxlr4800-37-99 09:42:00* Test Item Value Reference Range Interpretation Comments C-Reactive Protein (test code = 1988-5) 0.3 0.0-4.9 Performed at: [facility] [id number] Director: Dedrick Escudero MD, Phone: [phone] Medical Center Harker Heightsodium Aqknp3619-81-71 09:51:00* Test Item Value Reference Range Interpretation Comments Sodium Level (test code = 2951-2) 142 136-145 [facility] NorthwestPotassium Tllkt7685-47-73 09:51:00* Test Item Value Reference Range Interpretation Comments Potassium Level (test code = 2823-3) 4.0 3.5-5.1 [facility] NorthwestChloride Qxyag8741-81-57 09:51:00* Test Item Value Reference Range Interpretation Comments Chloride Level (test code = 2075-0) 108 98-107 H [facility] NorthwestCarbon Dioxide Fykkj9265-80-17 09:51:00* Test Item Value Reference Range Interpretation Comments Carbon Dioxide Level (test code = 2028-9) 22 22-29 [facility] NorthwestAnion [id number] 09:51:00* Test Item Value Reference Range Interpretation Comments Anion Gap (test code = 20410-3) 16.0 8-16 [facility] NorthwestBlood Urea Fgjkgdes9330-78-58 09:51:00* Test Item Value Reference Range Interpretation Comments Blood Urea Nitrogen (test code = 3094-0) 11 7-26 [facility]inine2018-04-02 09:51:00* Test Item Value Reference Range Interpretation Comments Creatinine (test code = 2160-0) 0.72 0.57-1.11 [facility] NorthwestBUN/Creatinine Oofos0529-36-01 09:51:00* Test Item Value Reference Range Interpretation Comments BUN/Creatinine Ratio (test code = 3097-3) 15 6-25 [facility] NorthwestEstimat Glomerular Filtration Rate 2017-05-31 09:51:00* Test Item Value Reference Range Interpretation Comments Estimat Glomerular Filtration Rate (test code = 02150-1) 60- >60 Ranges were taken from the National Kidney Disease Education Program and the [facility] literature.Reference ranges:60 or greater: Juhowp83-13 ( for 3 consecutive months): Chronic kidney disease 15 or less: Kidney failureH[facility] NorthwestGlucose [id number] 09:51:00* Test Item Value Reference Range Interpretation Comments Glucose Level (test code = XZK6194) 102 74-118 [facility] NorthwestCalcium Ssxnl0911-74-85 09:51:00* Test Item Value Reference Range Interpretation Comments Calcium Level (test code = 99522-6) 9.8 8.4-10.2 [facility] NorthwestTotal Yzlggipvf9848-87-49 09:51:00* Test Item Value Reference Range Interpretation Comments Total Bilirubin (test code = 1975-2) 0.5 0.2-1.2 [facility] NorthwestAspartate Amino Transf (AST/SGOT) 2017-05-31 09:51:00* Test Item Value Reference Range Interpretation Comments Aspartate Amino Transf (AST/SGOT) (test code = Aspartate Amino Transf (AST/SGOT)) 16 5-34 [facility] NorthwestAlanine Aminotransferase (ALT/SGPT) 2017-05-31 09:51:00* Test Item Value Reference Range Interpretation Comments Alanine Aminotransferase (ALT/SGPT) (test code = 1742-6) 16 0-55 [facility] NorthwestTotal Nmvdaju9028-27-73 09:51:00* Test Item Value Reference Range Interpretation Comments Total Protein (test code = 2885-2) 7.7 6.5-8.1 [facility] NorthwestAlbumin2018-04-02 09:51:00* Test Item Value Reference Range Interpretation Comments Albumin (test code = 1751-7) 4.1 3.5-5.0 [facility] NorthwestGlobulin2018-04-02 09:51:00* Test Item Value Reference Range Interpretation Comments Globulin (test code = 12433-0) 3.6 2.3-3.5 H [facility] NorthwestAlbumin/Globulin Npzbz3431-15-87 09:51:00 * Test Item Value Reference Range Interpretation Comments Albumin/Globulin Ratio (test code = 1759-0) 1.1 0.8-2.0 [facility] NorthwestAlkaline Uvkgtziafwu6367-85-53 09:51:00* Test Item Value Reference Range Interpretation Comments Alkaline Phosphatase (test code = 6768-6) 101 40-150 [facility] NorthwestWhite Blood Yzlct6207-21-81 09:31:00* Test Item Value Reference Range Interpretation Comments White Blood Count (test code = 6690-2) 9.12 4.8-10.8 [facility] NorthwestRed Blood Gkktj5827-43-17 09:31:00* Test Item Value Reference Range Interpretation Comments Red Blood Count (test code = 789-8) 4.13 3.6-5.1 [facility] NorthwestHemoglobin2018-04-02 09:31:00* Test Item Value Reference Range Interpretation Comments Hemoglobin (test code = 75787-0) 12.1 12.0-16.0 [facility] NorthwestHematocrit2018-04-02 09:31:00* Test Item Value Reference Range Interpretation Comments Hematocrit (test code = 4544-3) 36.9 34.2-44.1 [facility] NorthwestMean Corpuscular Rrxnen0240-40-50 09:31:00* Test Item Value Reference Range Interpretation Comments Mean Corpuscular Volume (test code = 787-2) 89.3 81-99 [facility] NorthwestMean Corpuscular Pzawlvwdwu8134-58-86 09:31:00* Test Item Value Reference Range Interpretation Comments Mean Corpuscular Hemoglobin (test code = 785-6) 29.3 28-32 [facility] NorthwestMean Corpuscular Hemoglobin Concent 2017-05-31 09:31:00* Test Item Value Reference Range Interpretation Comments Mean Corpuscular Hemoglobin Concent (test code = 786-4) 32.8 31-35 [facility] NorthwestRed Cell Distribution Tngbu4237-05-54 09:31:00* Test Item Value Reference Range Interpretation Comments Red Cell Distribution Width (test code = 13180-0) 17.5 11.7 -14.4 H [facility] NorthwestPlatelet Xybkx9790-40-85 09:31:00* Test Item Value Reference Range Interpretation Comments Platelet Count (test code = 777-3) 242 140-360 [facility] NorthwestNeutrophils (%) (Auto)2017-05-31 09:31:00 * Test Item Value Reference Range Interpretation Comments Neutrophils (%) (Auto) (test code = 19821-3) 75.1 38.7-80.0 [facility] NorthwestLymphocytes (%) (Auto)2017-05-31 09:31:00 * Test Item Value Reference Range Interpretation Comments Lymphocytes (%) (Auto) (test code = 736-9) 18.3 18.0-39.1 [facility] NorthwestMonocytes (%) (Auto)2017-05-31 09:31:00* Test Item Value Reference Range Interpretation Comments Monocytes (%) (Auto) (test code = 5905-5) 4.5 4.4-11.3 [facility] NorthwestEosinophils (%) (Auto)2017-05-31 09:31:00 * Test Item Value Reference Range Interpretation Comments Eosinophils (%) (Auto) (test code = 713-8) 1.6 0.0-6.0 [facility] NorthwestBasophils (%) (Auto)2017-05-31 09:31:00* Test Item Value Reference Range Interpretation Comments Basophils (%) (Auto) (test code = 706-2) 0.3 0.0-1.0 [facility] NorthwestIM GRANULOCYTES %2017-05-31 09:31:00* Test Item Value Reference Range Interpretation Comments IM GRANULOCYTES % (test code = IM GRANULOCYTES %) 0.2 0.0- 1.0 [facility] NorthwestNeutrophils # (Auto)2017-05-31 09:31:00* Test Item Value Reference Range Interpretation Comments Neutrophils # (Auto) (test code = 751-8) 6.8 2.1-6.9 [facility] NorthwestLymphocytes # (Auto)2017-05-31 09:31:00* Test Item Value Reference Range Interpretation Comments Lymphocytes # (Auto) (test code = 92877-4) 1.7 1.0-3.2 [facility] NorthwestMonocytes # (Auto)2017-05-31 09:31:00* Test Item Value Reference Range Interpretation Comments Monocytes # (Auto) (test code = 742-7) 0.4 0.2-0.8 [facility] NorthwestEosinophils # (Auto)2017-05-31 09:31:00* Test Item Value Reference Range Interpretation Comments Eosinophils # (Auto) (test code = 711-2) 0.2 0.0-0.4 [facility] NorthwestBasophils # (Auto)2017-05-31 09:31:00* Test Item Value Reference Range Interpretation Comments Basophils # (Auto) (test code = 704-7) 0.0 0.0-0.1 [facility] NorthwestAbsolute Immature Granulocyte (auto 2017-05-31 09:31:00* Test Item Value Reference Range Interpretation Comments Absolute Immature Granulocyte (auto (bella t code = Absolute Immature Granulocyte (auto) 0.02 0-0.1 [facility] NorthwestUrine [id number] 03:28:00* Test Item Value Reference Range Interpretation Comments Urine WBC (test code = 5821-4) 0-5 0-5 [facility] NorthwestUrine [id number] 03:28:00* Test Item Value Reference Range Interpretation Comments Urine RBC (test code = 11842-2) 0-5 0-5 [facility] NorthwestUrine Wroencql0581-21-70 03:28:00* Test Item Value Reference Range Interpretation Comments Urine Bacteria (test code = 25685-6) FEW NONE [facility] NorthwestUrine Epithelial Xtaid8433-70-65 03:28:00 * Test Item Value Reference Range Interpretation Comments Urine Epithelial Cells (test code = 98798-7) MANY NONE [facility] NorthwestUrine Opiates Gvlfdl4851-70-93 03:22:00* Test Item Value Reference Range Interpretation Comments Urine Opiates Screen (test code = 47218-6) NEGATIVE NEGATIVE [facility] Barbiturates Xqnizz5192-08-90 03:22:00* Test Item Value Reference Range Interpretation Comments Urine Barbiturates Screen (test code = 674126654) NEGATIVE NEGA TIVE [facility] NorthwestUrine Phencyclidine Qfqsqh6721-59-15 03:22:00* Test Item Value Reference Range Interpretation Comments Urine Phencyclidine Screen (test code = 55157-7) NEGATIVE NEGAT WILIAM [facility] Amphetamines Pxpbbu4134-12-17 03:22:00* Test Item Value Reference Range Interpretation Comments Urine Amphetamines Screen (test code = 24563-5) NEGATIVE NEGATI VE [facility] NorthwestUrine Benzodiazepines Qooxwj8249-96-00 03:22:00* Test Item Value Reference Range Interpretation Comments Urine Benzodiazepines Screen (test code = 18674-3) POSITIVE NEG ATIVE H This test provides only a screen. Positive results should be repeated by a confi rmatory test.[facility] NorthwestUrine Cocaine Screen 2016-10-01 03:22:00* Test Item Value Reference Range Interpretation Comments Urine Cocaine Screen (test code = Urine Cocaine Screen) NEGATIVE NEGATIVE [facility] NorthwestUrine Cannabinoids Ffshvl6497-20-62 03:22:00* Test Item Value Reference Range Interpretation Comments Urine Cannabinoids Screen (test code = 73772-6) POSITIVE NEGATI VE H This test provides only a screen. Positive results should be repeated by a confi rmatory test.[facility] NorthwestUrine Ffenc2352-90-47 03:17:00* Test Item Value Reference Range Interpretation Comments Urine Color (test code = 5778-6) YELLOW YELLOW [facility] NorthwestUrine Nibwmih5216-27-14 03:17:00* Test Item Value Reference Range Interpretation Comments Urine Clarity (test code = 43717-8) SL CLOUDY CLEAR [facility] NorthwestUrine Specific Ohzylbb7780-25-69 03:17:00 * Test Item Value Reference Range Interpretation Comments Urine Specific [place] (test code = 5811-5) 1.005 1.010-1.02 5 L [facility] NorthwestUrine [id number] 03:17:00* Test Item Value Reference Range Interpretation Comments Urine pH (test code = 57993-7) 7 5-7 [facility] Leukocyte Hlsjxjwv9929-95-18 03:17:00* Test Item Value Reference Range Interpretation Comments Urine Leukocyte Esterase (test code = 5799-2) NEGATIVE NEGATIVE [facility] [id number] 03:17:00* Test Item Value Reference Range Interpretation Comments Urine Nitrite (test code = 00329-2) NEGATIVE NEGATIVE [facility] Ryphlez6148-95-93 03:17:00* Test Item Value Reference Range Interpretation Comments Urine Protein (test code = 5804-0) TRACE NEGATIVE H [facility] Glucose (UA)2016-10-01 03:17:00* Test Item Value Reference Range Interpretation Comments Urine Glucose (UA) (test code = 2349-9) NEGATIVE NEGATIVE [facility] Ynqbtqm8890-75-38 03:17:00* Test Item Value Reference Range Interpretation Comments Urine Ketones (test code = 80063-4) NEGATIVE NEGATIVE [facility] Tfgoadmlsyjn5699-55-32 03:17:00* Test Item Value Reference Range Interpretation Comments Urine Urobilinogen (test code = 44237-0) 0.2 0.2-1 [facility] Lassnjyfz3997-23-10 03:17:00* Test Item Value Reference Range Interpretation Comments Urine Bilirubin (test code = 1978-6) NEGATIVE NEGATIVE [facility] Owhpk4610-33-54 03:17:00* Test Item Value Reference Range Interpretation Comments Urine Blood (test code = 82110-4) TRACE NEGATIVE H [facility] NorthwestHuman Chorionic Gonadotropin, Qual 2016-10-01 02:29:00* Test Item Value Reference Range Interpretation Comments Human Chorionic Gonadotropin, Qual (test code = 2118-8) NEGATIVE NEGATIVE [facility] 2016-10-01 02:29:00* Test Item Value Reference Range Interpretation Comments Human Chorionic Gonadotropin, Qual (test code = 2118-8) NEGATIVE NEGATIVE [facility] [address] [place] [address] Patient Name: HOLLEY GAYLE MR #: [id number] : 05/1990 Age/Sex: 27/F Req #: [id number] Adm Physician: Ordered by: RG KWOK MD Report #: [id number] Location: ER Room/Be d: Procedure: [id number] DX/ABDOMEN ACUTE SERIES W/PA CXR Exam Date: [...] TO: RG KWOK MD CT ABDOMEN/PELVIS WO [place] [address] Patient Name: HOLLEY GAYLE MR #: [id number] : 1990 Age/Sex: 26/F Req #: [id number] Adm Physician: Ordered by: RG KWOK MD Report #: [id number] Location: ER Room/Bed: Procedure: [id number] CT/CT ABDOMEN/PELVIS WO Exam Date: 05/31/17 Exam [...] reformations were obt ained. DLP: 675.02 COMPARISON: [facility], CT, CT ABDOMEN /PELVIS W, 10/01/2016, [...] 11 57 Transcribed By: SUYAPA on 05/31/17 2450 COPY TO: RG KWOK MD
--- NOTE | 2020-01-23 07:51 | NUR ---
pt calm and quiet until staff enters room, pt begins rocking and crying and when attempted to calm pt, pt will calm easily. pt has displayed drug seeking s/s of behavior during entire visit.
--- NOTE | 2020-01-23 07:54 | NUR ---
md to room mulitple times to talk with pt, explained plan of care multiple times and reasoning for all treatments, pt agreed multiple times to treatment, and then within a few moments would ask for md for more pain meds. pt requested "way more morphine." md explained reasoning, and pt agreed.
[2020-01-23] MEDS ORDERED: LORAZEPAM 0.5 MG TAB ONE (07:55)
[2020-01-23] MEDS ORDERED: PROMETHAZINE HCL 25 MG TAB ONE (07:55)
--- NOTE | 2020-01-23 07:58 | Emergency Department Note ---
History of Present Illnes History of Present Illness Chief Complaint: Abdominal Complaints History of Present Illness This is a 29 year old female Chief Complaint Comment abd pain, nausea and vomiting, since lastnight. was released on the , she has not followed up with pcp yet. Patient has been here multiple times for the same reason... . Historian: Patient Arrival Mode: Car Onset (how long ago): day(s) (2) Location: abdomen Quality: dull Radiation: Denies non-radiation, Denies back, Denies neck, Denies extremity, Denies abdomen, Denies periumbilical, Denies flank, Denies proximal, Denies distal, Denies other Severity: moderate Onset quality: gradual Duration (how long): day(s) (2) Timing of current episode: constant Progression: waxing and waning Chronicity: new Context: Denies recent illness, Denies recent surgery, Denies recent immobilization, Denies recent travel, Denies trauma/injury, Denies new medications, Denies hx of DVT/PE, Denies non-compliance w/ medications, Denies other Relieving factors: none Exacerbating factors: none Associated symptoms: Denies denies other symptoms, Denies confusion, Denies chest pain, Denies cough, Denies diaphoresis, Denies fever/chills, Denies headaches, Denies loss of appetite, Denies malaise, Denies nausea/vomiting, Denies rash, Denies seizure, Denies shortness of breath, Denies syncope, Denies weakness, Denies other Treatments prior to arrival: none Past Medical/Family History Physician Review I have reviewed the patient's past medical and family history. Any updates have been documented here. 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 Social History Smoking Cessation: Never Smoker Counseling Performed: No Alcohol Use: None Any Illegal Drug Use: No Physically hurt or threatened: No Other Last Tetanus: UTD Any Pre-Existing Lines (PICC,: No Review of Systems Review of Systems Constitutional: Reports no symptoms EENTM: Reports no symptoms Cardiovascular: Reports no symptoms Respiratory: Reports no symptoms Gastrointestinal: Reports as per HPI Genitourinary: Reports no symptoms Musculoskeletal: Reports no symptoms Integumentary: Reports no symptoms Neurological: Reports no symptoms Psychological: Reports no symptoms Endocrine: Reports no symptoms Hematological/Lymphatic: Reports no symptoms Physical Exam Related Data Allergies: Coded Allergies: codeine (Verified Allergy, Unknown, rash/swelling, 02/17/19) Triage Vital Signs Vital Signs Date Time Temp Pulse Resp B/P (MAP) Pulse Ox O2 Delivery O2 Flow Rate FiO2 01/23/20 06:34 99.1 95 26 190/124 100 Room Air Vital signs reviewed: Yes Physical Exam CONSTITUTIONAL Constitutional: Present well-developed, Present well-nourished HENT HENT: Present normocephalic, Present atraumatic, Present oropharynx clear/moist, Present nose normal HENT L/R: Present left ext ear normal, Present right ext ear normal EYES Eyes: Reports PERRL, Reports conjunctivae normal NECK Neck: Present ROM normal PULMONARY Pulmonary: Present effort normal, Present breath sounds normal CARDIOVASCULAR Cardiovascular: Present regular rhythm, Present heart sounds normal, Present capillary refill normal, Present normal rate GASTROINTESTINAL Abdominal: Present soft, Present nontender, Present bowel sounds normal GENITOURINARY Genitourinary: Present exam deferred SKIN Skin: Present warm, Present dry MUSCULOSKELETAL Musculoskeletal: Present ROM normal NEUROLOGICAL Neurological: Present alert, Present oriented x 3, Present no gross motor or sensory deficits PSYCHOLOGICAL Psychological: Present mood/affect normal, Present judgement normal Results Laboratory Lab results reviewed: Yes Assessment & Plan Medical Decision Making MDM gastritis narcotic bowel syndrom Reassessment Reassessment better Assessment & Plan Final Impression: (1) Abdominal pain (2) Weakness (3) Anemia Depart Disposition: HOME, SELF-CARE Last Vital Signs Date Time Temp Pulse Resp B/P (MAP) Pulse Ox O2 Delivery O2 Flow Rate FiO2 01/23/20 07:38 98.7 91 18 160/79 99 Room Air Home Meds Active Scripts Promethazine Hcl* (PHENERGAN SUPP*) 25 Mg Supp, 25 MG RC TID PRN for VOMITING for 3 Days, #10 Prov:LENNY RAMACHANDRAN MD 09/23/19 Ondansetron Hcl* (ZOFRAN*) 4 Mg Tablet, 4 MG PO TID for vomiting for 3 Days, #10 Prov:LENNY RAMACHANDRAN MD 09/23/19 Promethazine Hcl (PHENERGAN) 25 Mg/1 Ml Ampul, 12.5 MG PO Q8HR PRN for nausea/vomiting, #20 Prov:CRISTÓBAL ALVAREZ MD 01/06/19 Reported Medications Escitalopram Oxalate (ESCITALOPRAM OXALATE) 20 Mg Tablet 01/05/19 Levetiracetam (LEVETIRACETAM) 1,000 Mg Tablet 01/05/19 Estradiol (Estradiol) 1 Each Patch.tdsw 01/05/19 Promethazine Hcl* (PHENERGAN SUPP*) 25 Mg Supp 01/05/19 Norethindrone Acetate (NORETHINDRONE ACETATE) 5 Mg Tablet 01/05/19 Metoprolol Tartrate (LOPRESSOR) 25 Mg Tab 01/05/19 Ondansetron Hcl (ONDANSETRON HCL) 4 Mg Tablet 01/05/19 Sertraline Hcl (SERTRALINE HCL) 100 Mg Tablet 01/05/19 Lamotrigine (LAMOTRIGINE) 100 Mg Tablet, 25 MG PO DAILY 01/05/19 Hydroxyzine Hcl (HYDROXYZINE HCL) 50 Mg Tablet 01/05/19 Gabapentin (GABAPENTIN) 100 Mg Capsule 01/05/19 Alprazolam (ALPRAZOLAM) 2 Mg Tablet 01/05/19 Medications in the ED Morphine Sulfate 2 mg NOW STAT IV ; Start 01/23/20 at 07:17; Stop 01/23/20 at 07:28; Status DC Lorazepam 1 mg ONCE ONCE IV Last administered on 01/23/20at 07:28; Admin Dose 1 MG; Start 01/23/20 at 07:30; Stop 01/23/20 at 07:36; Status DC Ondansetron HCl 4 mg NOW STAT IV Last administered on 01/23/20at 07:30; Admin Dose 4 MG; Start 01/23/20 at 07:17; Stop 01/23/20 at 07:36; Status DC Morphine Sulfate 4 mg ONCE ONCE IV Last administered on 01/23/20at 07:38; Admin Dose 4 MG; Start 01/23/20 at 07:30; Stop 01/23/20 at 07:35; Status DC Morphine Sulfate 4 mg STK-MED ONCE .ROUTE ; Start 01/23/20 at 07:35; Stop 01/23/20 at 07:29; Status DC Lorazepam 1 mg STK-MED ONCE .ROUTE ; Start 01/23/20 at 07:55; Stop 01/23/20 at 07:50; Status DC Promethazine HCl 25 mg STK-MED ONCE .ROUTE ; Start 01/23/20 at 07:55; Stop 01/23/20 at 07:50; Status DC SHAHID VERA MD Jan 23, 2020 07:58
[2020-01-23] MEDS ORDERED: ZOFRAN4 MG SL (08:00)
[2020-01-23] MEDS ORDERED: LORAZEPAM 1 MG TAB PO ONE (08:00)
[2020-01-23] MEDS ORDERED: DICYCLOMINE HCL20 MG PO (08:00)
[2020-01-23] MEDS ORDERED: PROMETHAZINE HCL 25 MG TAB PO ONE (08:00)
--- NOTE | 2020-01-23 08:04 | NUR ---
ambulatory with steady gait at discharge.
--- NOTE | 2020-01-23 08:04 | NUR ---
pt was able to tolerate po fluids and take po meds successfully without incident.
== END 2020-01-23 08:05 | disposition home or self-care (01) ==
LOC: FSED 07:02
DX: R10.9 Unspecified abdominal pain (principal); R53.1 Weakness; D64.9 Anemia, unspecified; R11.2 Nausea with vomiting, unspecified; G40.909 Epilepsy, unspecified, not intractable, without status epilepticus; F43.10 Post-traumatic stress disorder, unspecified; F41.9 Anxiety disorder, unspecified
CPT/HCPCS: 80053; 81003; 81025; 85025; 99284; J2060; J2270; J2405

== ENCOUNTER 2020-04-18 09:31 | Emergency (ER) | payer BC ==
[~2020-04-18] VITALS: Ht 154.9 cm; Wt 79.8 kg
[~2020-04-18 09:31] MED LIST changes: +DICYCLOMINE HCL20 MG PO; +ZOFRAN4 MG SL
[2020-04-18] MEDS ORDERED: KETOROLAC TROMETHAMINE 30 MG/ML VIAL IV STA (10:10)
[2020-04-18] MEDS ORDERED: ONDANSETRON HCL INJ 2MG/ML 2ML 2 MG/ML VIAL IV STA (10:13)
[2020-04-18] MEDS ORDERED: LORAZEPAM INJ 2 MG/ML VIAL IV ONE ×2 (10:15→11:15)
[2020-04-18] MEDS ORDERED: MORPHINE SULFATE INJ 2 MG/ML SYR IV STA (10:45)
[2020-04-18] MEDS ORDERED: ONDANSETRON HCL INJ 2MG/ML 2ML 2 MG/ML VIAL ONE (10:57)
[2020-04-18] MEDS ORDERED: MORPHINE SULFATE INJ 4 MG/ML INJ 1ML ONE (10:57)
[2020-04-18] MEDS ORDERED: LORAZEPAM INJ 2 MG/ML VIAL ONE (10:57)
== END 2020-04-18 12:18 | disposition home or self-care (01) ==
LOC: FSED 10:15
DX: R10.33 Periumbilical pain (principal); R11.11 Vomiting without nausea; N80.9 Endometriosis, unspecified; F43.10 Post-traumatic stress disorder, unspecified; G40.909 Epilepsy, unspecified, not intractable, without status epilepticus; F41.9 Anxiety disorder, unspecified
CPT/HCPCS: 74176; 80053; 85025; 87400; 99284; J2060; J2270; J2405

== ENCOUNTER 2020-05-24 21:32 | Emergency (ER) | payer BC ==
[~2020-05-24] VITALS: Ht 154.9 cm; Wt 78.0 kg
[2020-05-24] MEDS ORDERED: ONDANSETRON HCL INJ 2MG/ML 2ML 2 MG/ML VIAL IV STA (22:06)
[2020-05-24] MEDS ORDERED: MORPHINE SULFATE INJ 2 MG/ML SYR IV STA (22:06)
[2020-05-24] MEDS ORDERED: LORAZEPAM INJ 2 MG/ML VIAL IV ONE (22:15)
[2020-05-24] MEDS ORDERED: ONDANSETRON HCL INJ 2MG/ML 2ML 2 MG/ML VIAL ONE (23:05)
[2020-05-24] MEDS ORDERED: LORAZEPAM INJ 2 MG/ML VIAL ONE (23:05)
[2020-05-24] MEDS ORDERED: MORPHINE SULFATE INJ 4 MG/ML INJ 1ML ONE (23:06)
[2020-05-25] MEDS ORDERED: METOCLOPRAMIDE HCL 10 MG/2ML VIAL IV ONE (00:15)
[2020-05-25] MEDS ORDERED: MORPHINE SULFATE INJ 2 MG/ML SYR IV STA (00:43)
[2020-05-25] MEDS ORDERED: METOCLOPRAMIDE HCL 10 MG/2ML VIAL ONE (00:44)
[2020-05-25] MEDS ORDERED: ONDANSETRON ODT4 MG PO (00:46)
[2020-05-25 00:55] VITALS: BP 158/90
== END 2020-05-25 00:55 | disposition home or self-care (01) ==
LOC: FSED 22:10
DX: R10.13 Epigastric pain (principal); R11.2 Nausea with vomiting, unspecified; N80.9 Endometriosis, unspecified; G40.909 Epilepsy, unspecified, not intractable, without status epilepticus; F43.10 Post-traumatic stress disorder, unspecified; F41.9 Anxiety disorder, unspecified
CPT/HCPCS: 74176; 80048; 80076; 81003; 81025; 85025; 99284; J2060; J2270 ×3; J2405; J2765

== ENCOUNTER 2020-09-22 00:38 | Emergency (ER) | payer BC ==
[~2020-09-22] VITALS: Ht 154.9 cm; Wt 78.0 kg
[~2020-09-22 00:38] MED LIST changes: +ONDANSETRON ODT4 MG PO
[2020-09-22] MEDS ORDERED: SODIUM CHLORIDE 0.9% 1000ML 1,000 ML IV STA (01:02)
[2020-09-22] MEDS ORDERED: HALOPERIDOL LACTATE 5 MG/ML VIAL IV ONE (01:15)
[2020-09-22] MEDS ORDERED: SODIUM CHLORIDE 0.9% 1000ML 1,000 ML ONE (01:20)
[2020-09-22] MEDS ORDERED: HALOPERIDOL LACTATE 5 MG/ML VIAL ONE (01:20)
[2020-09-22] MEDS ORDERED: MORPHINE SULFATE INJ 4 MG/ML INJ 1ML IV PRN (01:45)
[2020-09-22] MEDS ORDERED: PROMETHAZINE 12.5MG/ NACL 0.9% 12.5 MG/50 ML BAG IV ONE (01:45)
[2020-09-22] MEDS ORDERED: ONDANSETRON ODT4 MG PO (01:50)
[2020-09-22] MEDS ORDERED: DICYCLOMINE HCL10 MG PO (01:50)
[2020-09-22] MEDS ORDERED: PROMETHAZINE HCL (IM) 25 MG/ML VIAL IM ONE (01:55)
[2020-09-22] MEDS ORDERED: MORPHINE SULFATE INJ 4 MG/ML INJ 1ML ONE (01:55)
[2020-09-22] MEDS ORDERED: CEPHALEXIN500 MG PO (07:50)
== END 2020-09-22 02:45 | disposition home or self-care (01) ==
LOC: FSED 01:00
DX: K50.90 Crohn's disease, unspecified, without complications (principal); L02.32 Furuncle of buttock
CPT/HCPCS: 80053; 81003; 85025; 93041; 99283; J1630; J2270; J2550; J7030

== ENCOUNTER 2020-09-30 11:45 | Emergency (ER) | payer BC ==
[~2020-09-30] VITALS: Ht 154.9 cm; Wt 76.7 kg
[~2020-09-30 11:45] MED LIST changes: +CEPHALEXIN500 MG PO; +DICYCLOMINE HCL10 MG PO
[2020-09-30] MEDS ORDERED: PROMETHAZINE 25MG/ NS 50ML (IV) IV ONE (12:45)
[2020-09-30] MEDS ORDERED: MORPHINE SULFATE INJ 4 MG/ML INJ 1ML IV ONE (12:45)
[2020-09-30] MEDS ORDERED: SODIUM CHLORIDE 0.9% 1000ML 1,000 ML ONE (12:57)
[2020-09-30] MEDS ORDERED: PROMETHAZINE HCL (IM) 25 MG/ML VIAL IM ONE (12:57)
[2020-09-30] MEDS ORDERED: SODIUM CHLORIDE 0.9% 50ML 50 ML ONE ×2 (12:58→14:59)
[2020-09-30] MEDS ORDERED: MORPHINE SULFATE INJ 4 MG/ML INJ 1ML ONE ×2 (12:59→14:36)
[2020-09-30] MEDS ORDERED: DIATRIZOATE MEGL/DIATRIZOA SOD 30 ML BTL PO ONE (13:08)
[2020-09-30] MEDS ORDERED: IOPAMIDOL 370 MG/ML 200 ML INFUS..BTL INJ ONE (13:08)
[2020-09-30] MEDS: FAMOTIDINE 20 MG/2 ML VIAL IV SCH ×2 (13:12→13:20)
[2020-09-30] MEDS ORDERED: SODIUM CHLORIDE 0.9% 1000ML 1,000 ML IV SCH (13:45)
[2020-09-30] MEDS ORDERED: MORPHINE SULFATE INJ 2 MG/ML SYR IV STA (14:13)
[2020-09-30] MEDS ORDERED: METOCLOPRAMIDE HCL 10 MG/2ML VIAL IV ONE (14:15)
[2020-09-30] MEDS ORDERED: METOCLOPRAMIDE HCL 10 MG/2ML VIAL ONE (14:36)
[2020-09-30] MEDS ORDERED: CEPHALEXIN500 MG PO (16:33)
== END 2020-09-30 15:35 | disposition home or self-care (01) ==
LOC: FSED 12:07
DX: R10.30 Lower abdominal pain, unspecified (principal); R11.2 Nausea with vomiting, unspecified; R19.7 Diarrhea, unspecified; N39.0 Urinary tract infection, site not specified; N80.9 Endometriosis, unspecified; D64.9 Anemia, unspecified
CPT/HCPCS: 74177; 80048; 80076; 81003; 81025; 85025; 96374; 96375; 96376; 99284; J2270; J2550; J2765; J7030; Q9967

== ENCOUNTER 2020-11-10 16:22 | Emergency (ER) | payer BC ==
[~2020-11-10] VITALS: Ht 154.9 cm; Wt 68.5 kg
[2020-11-10] MEDS ORDERED: SODIUM CHLORIDE 0.9% 1000ML 1,000 ML IV STA (16:52)
[2020-11-10] MEDS ORDERED: ONDANSETRON HCL INJ 2MG/ML 2ML 2 MG/ML VIAL IV ONE (17:00)
[2020-11-10] MEDS ORDERED: FAMOTIDINE 20 MG/2 ML VIAL IV ONE ×2 (17:00→17:13)
[2020-11-10] MEDS ORDERED: SODIUM CHLORIDE 0.9% 1000ML 1,000 ML ONE (17:12)
[2020-11-10] MEDS ORDERED: ONDANSETRON HCL INJ 2MG/ML 2ML 2 MG/ML VIAL ONE (17:12)
[2020-11-10] MEDS ORDERED: ONDANSETRON ODT4 MG PO (17:28)
[2020-11-10] MEDS ORDERED: DICYCLOMINE HCL20 MG PO (17:28)
[2020-11-10 17:37] VITALS: BP 153/90
== END 2020-11-10 17:42 | disposition home or self-care (01) ==
LOC: FSED 16:52
DX: R10.9 Unspecified abdominal pain (principal); R11.2 Nausea with vomiting, unspecified; R19.7 Diarrhea, unspecified; K63.89 Other specified diseases of intestine; Z76.5 Malingerer [conscious simulation]
CPT/HCPCS: 74018; 80048; 80076; 81003; 85025; 99283; J2405; J7030

== ENCOUNTER 2024-12-24 11:40 | Emergency (ER) | payer BC ==
[~2024-12-24] VITALS: Ht 154.9 cm; Wt 97.1 kg
[~2024-12-24 11:40] MED LIST changes: +ACETAMINOPHEN-1 EAC4 PO; +ELIQUIS5 MG PO; +METOCLOPRAM5 MG/5 ML PO; +OMEPRAZOLE40 MG PO; +ULTRAM 50MG50 MG PO
[2024-12-24] MEDS ORDERED: SODIUM CHLORIDE 0.9% 1000ML 1,000 ML IV SCH (11:45)
[2024-12-24 12:55] VITALS: PULSE 90; RESP 17; TEMP 98.7
[2024-12-24 13:20] LABS: BASOPHILS % 0.4 % (0.0-1.0); EOSINOPHILS % 4.2 % (0.0-6.0); LYMPHOCYTES % 30.4 % (18.0-39.1); MONOCYTES % 5.5 % (4.4-11.3); NEUTROPHILS % 59.3 % (38.7-80.0); RED CELL DISTRIBUTION WIDTH 22.4 % (11.7-14.4)
[2024-12-24] MEDS: METHYLPREDNISOLONE SOD SUCC 125 MG/2ML VIAL IV ONE (13:22)
[2024-12-24] MEDS: ONDANSETRON HCL INJ 2MG/ML 2ML 2 MG/ML VIAL IV STA (13:22)
[2024-12-24 13:57] LABS: EST GLOMERULAR FILTRATION RATE 118.0 ML/MIN (>=60)
[2024-12-24 14:21] VITALS: BP 103/81; PULSE 102; RESP 16; O2SAT 100
== END 2024-12-24 13:45 | disposition left against medical advice (07) ==
LOC: ER 11:43
DX: R10.30 Lower abdominal pain, unspecified (principal); K50.90 Crohn's disease, unspecified, without complications; R11.0 Nausea; R19.7 Diarrhea, unspecified; I10 Essential (primary) hypertension; G40.909 Epilepsy, unspecified, not intractable, without status epilepticus; D64.9 Anemia, unspecified; K21.9 Gastro-esophageal reflux disease without esophagitis; F41.9 Anxiety disorder, unspecified; F32.A Depression, unspecified; Z86.718 Personal history of other venous thrombosis and embolism
CPT/HCPCS: 36415; 80053; 84702; 85025; 99283; J2405; J2919